=== PATIENT | female | born 1930 | race Caucasian/White ===

== ENCOUNTER 2016-02-18 11:33 | Emergency (ER) | payer MEDICARE, BC ==
[~2016-02-18] VITALS: Ht 152.4 cm; Wt 45.4 kg
[~2016-02-18 11:33] MED LIST: ACETAMINOP160 MG/54 ORAL; AMLODIPINE BESYL5 MG PO; ARTIFICIAL TEA1 EAC2 OP; ARTIFICIAL TEAR15 ML BOTH EYES; ASPIRIN EC81 MG PO; CALCIUM + VIT1 EACH PO; CALMOSEPTINE O3.5 G1 TP; CEPHALEXIN500 MG ORAL; CIPRO250 MG ORAL; CITRACAL PO; COLACE250 MG ORAL; COUMADIN5 MG ORAL; COUMADIN6 MG ORAL; COUMADIN7.5 MG ORAL; CRANBERRY200 M1 PO; CULTURELLE1 EACH ORAL; DOCUSIL100 M1 ORAL; DOK100 M1 ORAL; DOXYCYCLINE HY100 M2 PO; ESSENTIAL DAIL1 EAC1 PO; FERROUS SULFAT325 M2 ORAL; GUAIFENESI100 MG/5 M ORAL; Ipratropium Bromide HHN; LIDODERM700 M1 TOPIC; LIPITOR20 MG ORAL; LOVENOX10 M1 SUBQ; LOVENOX10 M4 SUBQ; METOPROLOL SUCC25 MG ORAL; MIRALAX17 GM PO; MIRTAZAPINE15 M3 ORAL; MIRTAZAPINE30 MG ORAL; NAPROXEN250 MG PO; NORCO 5-325 TA1 EACH ORAL; NORCO 7.5/3251 EA ORAL; NORVASC5 MG ORAL; NYSTOP POWDER15 GM TOPIC; PANTOPRAZOLE SO40 MG ORAL; PEPTO-BISM525 MG/15 PO; PEPTO-BISMOL262 MG PO; REMERON30 M1 ORAL; ROPINIROLE HCL1 MG PO; ROPINIROLE HCL2 M1 PO; SIMVASTATIN20 MG ORAL; SINEMET 25-1001 EAC1 PO; SINEMET 25/2501 E1 ORAL; SYNTHROID112 MCG ORAL; TYLENOL325 MG ORAL; VIACTIV MULTI-1 EACH PO; VIACTIV SOFT C1 EACH PO; VITAMIN C500 M1 PO; VITAMIN D1000 UNI1 ORAL; VYTORIN 10-201 EACH ORAL; WARFARIN SODIUM1 MG ORAL; WARFARIN SODIUM5 MG ORAL; XOPENEX0.5 MG HHN; ZETIA10 MG ORAL; ZINC SULFATE220 M1 ORAL; [UNRECOGNIZED DRUG - OTHER] PO; [UNRECOGNIZED DRUG - OTHER] PO; vit c PO
[2016-02-18 12:30] VITALS: BP 169/86
[2016-02-18 13:09] LABS: BASOPHILS % (AUTO) 0.7 % (0.0-2.0); LYMPHOCYTES % (AUTO) 10.2 % (20.0-45.0); MEAN CORPUSCULAR HEMOGLOBIN 28.8 PG (27.0-31.0); MEAN CORPUSCULAR HGB CONC 31.7 G/DL (32.0-36.0); MEAN CORPUSCULAR VOLUME 91 FL (80-99); MEAN PLATELET VOLUME 10.5 FL (6.5-10.1); MONOCYTES % (AUTO) 5.7 % (1.0-10.0); NEUTROPHILS % (AUTO) 82.4 % (45.0-75.0); PLATELET COUNT 191 K/UL (150-450); RED BLOOD COUNT 4.66 M/UL (4.20-5.40); RED CELL DISTRIBUTION WIDTH 13.4 % (11.6-14.8); WHITE BLOOD COUNT 9.5 K/UL (4.8-10.8)
[2016-02-18 13:28] LABS: ALANINE AMINOTRANSFERASE 5 U/L (3-33); ALBUMIN/GLOBULIN RATIO 1.2 (1.0-2.7); ANION GAP 13 (5-15); ASPARTATE AMINO TRANSFERASE 22 U/L (5-40); CARBON DIOXIDE 26 mEQ/L (20-30); CHLORIDE 101 mEQ/L (98-107); CREATININE 0.8 mg/dL (0.5-0.9); HEMOLYSIS 10; POTASSIUM 4.1 mEQ/L (3.4-4.9); SODIUM 140 mEQ/L (135-145); TOTAL PROTEIN 6.9 g/dL (6.6-8.7)
[2016-02-18 13:31] LABS: INR 2.3 (0.9-1.1); PROTHROMBIN TIME 24.2 SEC (9.30-11.50)
--- NOTE | 2016-02-18 13:40 | Diagnostic Imaging Report ---
Indication: Back pain Technique: Continuous helical transaxial imaging of the lumbar spine was obtained from the lung bases to the pubic symphysis. No IV contrast was administered. Coronal 2-D reformats were also obtained. Study obtained in a Siemens sensation [address] Total Dose length Product (DLP): [address] Dose Index Volume (CTDIvol): 13 mGy Comparison: None Findings: There are multiple compression fracture deformities of vertebral bodies throughout the lumbar and visualized lower thoracic spine including moderate compression of the L3 vertebra, moderate to severe compression of the T12 and T9 vertebra. Bones are diffusely osteopenic. No obvious acute fracture is seen. The last study imaging the lumbar spine was performed 06/29/[address] abdomen pelvis. There is no obvious change since that time but the prior study was not performed with sagittal reconstructions which does significantly limit comparison. Subtle changes since that time may be missed. There is a scoliosis convex to the right again demonstrated. Aorta is moderately calcified. Impression: Multiple osteoporotic compression fractures within the lumbar and visualized lower thoracic spine grossly unchanged from the previous study 06/29/13 with some limitations in the comparison as discussed above. Atherosclerotic vascular disease The CT scanner at [facility] is accredited by the [employer] and the scans are performed using protocols designed to limit radiation exposure to as low as reasonably achievable to attain images of sufficient resolution adequate for diagnostic evaluation.
[2016-02-18 13:59] LABS: THYROID STIMULATING HORMONE 0.005 uIU/mL (0.300-4.500)
--- NOTE | 2016-02-18 14:12 | Diagnostic Imaging Report ---
Indications: hip pain Findings: 2 views of both hips were obtained. There is a bipolar right hip hemiarthroplasty demonstrated. Cerclage wires and a large lateral compression plate along the shaft of the femur noted also. Bones are osteopenic. No fracture is identified. Partial visualization of a left hip bipolar hemiarthroplasty also noted. IVC filter noted just right of L5. Impression: No acute fracture identified. Bilateral hip prosthetics. Diffuse severe osteopenia.
[2016-02-18 14:15] VITALS: BP 169/87
[2016-02-18] MEDS ORDERED: TYLENOL EXTRA500 MG ORAL (14:21)
[2016-02-18 14:35] VITALS: BP 169/87
--- NOTE | 2016-02-18 14:55 | Diagnostic Imaging Report ---
Indication: Pain 3 views of the right knee were obtained. Findings: There is a lateral femoral compression plate and several screws reducing a mid shaft fracture, which appears old. No acute fracture is identified. Bones are osteopenic. There is moderate osteoarthritis of the knee noted. Impression: No acute fracture
--- NOTE | 2016-02-19 15:45 | Emergency Room Report ---
History of Present Illness General Chief Complaint: Pain Source: Family Member, Medical Record Present Illness HPI 86-year-old female presents to ED for evaluation. Patient brought in by daughter. Daughter states that patient has been complaining of pain while she is being handled by her nurses at her [id number]. No reported trauma. Daughter states that she wants to make sure that patient does not have a fracture. Patient sent here from PMD Dr. Diallo's office. Patient has dementia and is unable to provide any additional history. Unclear whether patient fell or was dropped. Patient is pointing to her right shoulder, right knee and back for pain. Daughter states that patient did have hip replacements in both sides. No other aggravating or relieving factors. Denies any other associated symptoms Allergies: Coded Allergies: STRAWBERRY (Verified Allergy, Unknown, Rash, 06/29/13) COPIED FROM UNCODED SECTION VALSARTAN (Verified Allergy, Unknown, 03/09/11) Patient History Past Medical History: HTN, CAD, dementia Pertinent Family History: none Social History: Denies: alcohol use, drug use, smoking Now: No Immunizations: UTD Reviewed Nursing Documentation: PMH: Agreed, PSxH: Agreed Nursing Documentation-PMH Hx Cardiac Problems: Yes - high cholesterol; arteriosclerosis Hx Hypertension: Yes - ? - no longer on medications Hx Cancer: No Hx Gastrointestinal Problems: Yes - RECTAL PROLAPSE ( corrected april 2012) Hx Neurological Problems: Yes - DEMENTIA; "Parikinson-like symptoms" Hx Dementia: Yes Hx Parkinson's Disease: Yes Hx Memory Loss: Yes Hx Weakness: Yes Review of Systems All Other Systems: negative except mentioned in HPI Physical Exam Vital Signs Date Time Temp Pulse Resp B/P Pulse Ox O2 Delivery O2 Flow Rate FiO2 02/18/16 11:35 97.2 72 16 184/86 95 Room Air Sp02 EP Interpretation: reviewed, normal General Appearance: no apparent distress, alert, GCS 15, non-toxic, thin Head: normocephalic Eyes: bilateral eye PERRL, bilateral eye normal inspection ENT: normal ENT inspection Neck: normal inspection Respiratory: chest non-tender, lungs clear, normal breath sounds, speaking full sentences Cardiovascular #1: regular rate, rhythm, no edema Gastrointestinal: normal bowel sounds, non tender, soft, non-distended, no guarding, no rebound Rectal: deferred Genitourinary: no CVA tenderness, vertebral tenderness Musculoskeletal: tender - R shoulder, R knee. L hip Neurologic: alert, responsive, motor strength/tone normal, sensory intact, speech normal Psychiatric: other Skin: normal inspection Lymphatic: normal inspection Medical Decision Making Diagnostic Impression: Primary Impression: Arthralgia Qualified Codes: M25.50 - Pain in unspecified joint ER Course Hospital Course 86-year-old female presents to ED with right shoulder, right knee, back and hip pain. From boarding care facility. Unclear if patient sustained injury Differential diagnosis includes- x-ray, dislocation, contusion Clinical course Patient placed on stretcher. After initial history and physical I ordered labs , IV fluids, pain medications and imaging studies Labs - no leukocytosis, electrolytes ok, hb/hct stable, LFTs normal X-rays show degenerative changes however no acute fracture. Her prostheses in place CT L-spine shows multiple compression fractures which are unchanged from prior CT and 2014 Reassurance given to family. Discussed with PMD Dr. Diallo he agrees patient can be safely discharged to home I feel this is a highly complex case requiring extensive working including EKG/ Rhythm strip, Xray/CT/US, Blood/urine lab work, repeat exams while in ED, and administration of strong opiates/narcotics for pain control, admission to hospital or close patient follow up. Diagnosis - arthralgia Stable and discharged to home with Rx Tylenol. Followup with PMD. Return to ED if symptoms recur or worsen Labs Test 02/18/16 12:15 White Blood Count 9.5 K/UL (4.8-10.8) Red Blood Count 4.66 M/UL (4.20-5.40) Hemoglobin 13.4 G/DL (12.0-16.0) Hematocrit 42.4 % (37.0-47.0) Mean Corpuscular Volume 91 FL (80-99) Mean Corpuscular Hemoglobin 28.8 PG (27.0-31.0) Mean Corpuscular Hemoglobin Concent 31.7 G/DL (32.0-36.0) Red Cell Distribution Width 13.4 % (11.6-14.8) Platelet Count 191 K/UL (150-450) Mean Platelet Volume 10.5 FL (6.5-10.1) Neutrophils (%) (Auto) 82.4 % (45.0-75.0) Lymphocytes (%) (Auto) 10.2 % (20.0-45.0) Monocytes (%) (Auto) 5.7 % (1.0-10.0) Eosinophils (%) (Auto) 1.0 % (0.0-3.0) Basophils (%) (Auto) 0.7 % (0.0-2.0) Prothrombin Time 24.2 SEC (9.30-11.50) Prothromb Time International Ratio 2.3 (0.9-1.1) Activated Partial Thromboplast Time 34 SEC (23-33) Sodium Level 140 mEQ/L (135-145) Potassium Level 4.1 mEQ/L (3.4-4.9) Chloride Level 101 mEQ/L (98-107) Carbon Dioxide Level 26 mEQ/L (20-30) Anion Gap 13 (5-15) Blood Urea Nitrogen 19 mg/dL (7-23) Creatinine 0.8 mg/dL (0.5-0.9) Estimat Glomerular Filtration Rate mL/min (>60) Glucose Level 87 mg/dL (74-106) Calcium Level 10.0 mg/dL (8.6-10.2) Total Bilirubin 0.3 mg/dL (0.0-1.2) Aspartate Amino Transf (AST/SGOT) 22 U/L (5-40) Alanine Aminotransferase (ALT/SGPT) 5 U/L (3-33) Alkaline Phosphatase 83 U/L (35-104) Total Protein 6.9 g/dL (6.6-8.7) Albumin 3.8 g/dL (3.5-5.2) Globulin 3.1 g/dL Albumin/Globulin Ratio 1.2 (1.0-2.7) Vitamin B12 Level 708 pg/mL (211-946) Thyroid Stimulating Hormone (TSH) 0.005 uIU/mL (0.300-4.500) Other X-Ray Diagnostic Results Other X-Ray Diagnostic Results : X-Ray Ordered: R shoudler, R knee, Pelvis EP Interpretation: No Findings: no fractures, no dislocation, no soft tissue swelling Number of Views: 3 Other Impression Right shoulder-No fracture, no dislocation, no soft tissue swelling Right knee-No fracture, no dislocation, no soft tissue swelling Pelvis-No fracture, no dislocation, no soft tissue swelling CT/MRI/US Diagnostic Results CT/MRI/US Diagnostic Results : Imaging Test Ordered: CT L-spine Impression Multiple old compression fractures unchanged from prior CT. No acute findings Last Vital Signs Date Time Temp Pulse Resp B/P Pulse Ox O2 Delivery O2 Flow Rate FiO2 02/18/16 14:35 96.9 02/18/16 14:35 73 13 169/87 99 Room Air Status: improved Disposition: HOME, SELF-CARE Condition: Stable Scripts Acetaminophen* (TYLENOL EXTRA STRENGTH*) 500 Mg Tablet 500 MG ORAL Q8H Y for Prn Headache/Temp > 101, #30 TAB 0 Refills Prov: CHARLEEN CHAHAL M.D. 02/18/16 Patient Instructions: Arthritis, [id number] CHARLEEN CHAHAL M.D. Feb 19, 2016 15:45
--- NOTE | 2016-02-21 08:29 | Diagnostic Imaging Report ---
Indication: Pain Findings: 3 views of the right shoulder were obtained. No definite fracture or malalignment identified. Bones are osteopenic. There is an old fracture of the distal clavicle. Impression: Generalized osteopenia. Old fracture right distal clavicle
== END 2016-02-18 14:35 | disposition home or self-care (01) ==
LOC: EMR 12:50
DX: M25.511 Pain in right shoulder (principal); M17.11 Unilateral primary osteoarthritis, right knee; M48.56XA Collapsed vertebra, not elsewhere classified, lumbar region, initial encounter for fracture; M48.54XA Collapsed vertebra, not elsewhere classified, thoracic region, initial encounter for fracture; G20 Parkinson's disease; F02.80 Dementia in other diseases classified elsewhere, unspecified severity, without behavioral disturbance, psychotic disturbance, mood disturbance, and anxiety; M85.88 Other specified disorders of bone density and structure, other site; Z96.643 Presence of artificial hip joint, bilateral
CPT/HCPCS: 36415; 72131; 73521; 80053; 82607; 84443; 85025; 85610; 85730; 99284

== ENCOUNTER → 2017-07-29 | Outpatient (CLI) | payer MEDICARE, BC ==
[~2017-07-29] MED LIST changes: +TYLENOL EXTRA500 MG ORAL
--- NOTE | 2017-07-29 14:41 | Diagnostic Imaging Report ---
Indication: Shortness of breath Technique: One view of the chest Comparison: 04/13/2015 Findings: Exam is limited due to scoliotic deformity. There is a large hiatal hernia again demonstrated. There are bilateral small pleural effusions. There is some atelectasis at both lung bases and also in the inferior right upper lobe. Small amount of fluid is seen within the minor fissure on the right. The heart size is difficult to assess. The aorta is tortuous. There multiple midthoracic compression fractures. Compression fractures of T8 and T9 are evident on a prior abdomen pelvis CT exam of 06/29/2013. More cephalad fractures of T6 and T7 are age-indeterminate as there is no prior comparison imaging. The bones are osteoporotic Impression: Limited exam, as described Bilateral small pleural effusions Right basilar and inferior upper lobe atelectatic changes. Left basilar atelectasis as well. Large hiatal hernia, also previously reported
== END | disposition home or self-care (01) ==
LOC: RAD 12:35
DX: R06.02 Shortness of breath (principal); J90 Pleural effusion, not elsewhere classified; K44.9 Diaphragmatic hernia without obstruction or gangrene; M81.0 Age-related osteoporosis without current pathological fracture
CPT/HCPCS: 71046

== ENCOUNTER 2018-01-30 23:37 | Inpatient (IN) | payer MEDICARE, BC ==
[~2018-01-30] VITALS: Ht 152.4 cm; Wt 45.4 kg
[2018-01-30] MEDS ORDERED: Nitroglycerin 2% oint pkt TOPIC ONE (23:45)
[2018-01-30] MEDS ORDERED: Morphine Sulfate 2mg/ml Inj IVP ONE (23:45)
[2018-01-30 23:50] VITALS: BP 224/113
[2018-01-31] VITALS (8 sets, daily range): BP systolic 115–180; BP diastolic 69–100
[2018-01-31] MEDS: Sodium Chloride 500ML 550 ML IV SCH ×3 (00:01→10:45)
[2018-01-31 00:18] LABS: ANION GAP 5 mmol/L (5-15); BLOOD UREA NITROGEN 31 mg/dL (7-18); CALCIUM 10.2 MG/DL (8.5-10.1); CARBON DIOXIDE 30 MMOL/L (21-32); CHLORIDE 102 MMOL/L (98-107); POTASSIUM 5.8 MMOL/L (3.5-5.1); SODIUM 137 MMOL/L (136-145)
[2018-01-31 00:19] LABS: BASOPHILS % (AUTO) 1.7 % (0.0-2.0); EOSINOPHILS % (AUTO) 2.4 % (0.0-3.0); HEMATOCRIT 43.7 % (37.0-47.0); HEMOGLOBIN 14.3 G/DL (12.0-16.0); LYMPHOCYTES % (AUTO) 21.3 % (20.0-45.0); MEAN CORPUSCULAR VOLUME 94 FL (80-99); NEUTROPHILS % (AUTO) 68.7 % (45.0-75.0); PLATELET COUNT 187 K/UL (150-450); RED BLOOD COUNT 4.65 M/UL (4.20-5.40); RED CELL DISTRIBUTION WIDTH 13.4 % (11.6-14.8); WHITE BLOOD COUNT 9.1 K/UL (4.8-10.8)
[2018-01-31 00:29] LABS: ALANINE AMINOTRANSFERASE 39 U/L (12-78); ALBUMIN 3.6 G/DL (3.4-5.0); ALBUMIN/GLOBULIN RATIO 0.8 (1.0-2.7); ALKALINE PHOSPHATASE 95 U/L (46-116); ASPARTATE AMINO TRANSFERASE 69 U/L (15-37); BILIRUBIN,TOTAL 0.4 MG/DL (0.2-1.0); CREATINE KINASE 126 U/L (26-308)
[2018-01-31 00:39] LABS: INR 3.3 (0.9-1.1)
[2018-01-31] MEDS ORDERED: Morphine Sulfate 2mg/ml Inj IVP ONE (01:15)
[2018-01-31] MEDS ORDERED: [UNRECOGNIZED DRUG - OTHER] ORAL (01:23)
[2018-01-31] MEDS ORDERED: Sodium Polystyrene Sulfonate Enema RECTAL ONE (01:30)
[2018-01-31] MEDS ORDERED: Isovue-370 150ml vial INJ PRN (01:30)
[2018-01-31] MEDS ORDERED: Calcium Gluconate 1gm/10ml vial IVP ONE (01:30)
--- NOTE | 2018-01-31 01:35 | Emergency Room Report ---
History of Present Illness General Chief Complaint: Chest Pain Source: Patient, Family Member Present Illness HPI Patient presents with chest pain and hypertension. The patient has a functional decline and therefore the poor historian. She was recently seen by a inverted block operator on January 23 and her heart EKG checked out okay. She is a poor in describing with the chest pain feels like but she states she doesn't feel well. She will not rate the pain (but appears uncomfortable). Scraped L leg at doctor's office. The patient is on Coumadin. DVT and PE in the past. Not sure when last INR was done (not recent). IVC filter. Unable to swallow well. On puree diet. Has had GERD in the past. 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 Recent pneumonitis felt related to aspiration. Multiple compression fractures of T spine and other fractures. Parkinsons with some dementia/functional decline. Allergies: Coded Allergies: STRAWBERRY (Verified Allergy, Unknown, Rash, 06/29/13) COPIED FROM UNCODED SECTION VALSARTAN (Verified Allergy, Unknown, 03/09/11) Patient History Limited by: medical condition Past Medical History: see triage record, old chart reviewed Past Surgical History: hysterectomy, other - esophagectomy with bowel interposition, IVC filter, femoral hernia Social History: Denies: smoking Social History Narrative Board and care facility - Mother in Law of Mr. Xavier Last Menstrual Period: UNK Now: No Reviewed Nursing Documentation: PMH: Agreed; PSxH: Agreed Nursing Documentation-PMH Hx Cardiac Problems: Yes - high cholesterol; arteriosclerosis Hx Hypertension: Yes - ? - no longer on medications Hx Cancer: No Hx Gastrointestinal Problems: Yes - RECTAL PROLAPSE ( corrected april 2012) Hx Neurological Problems: Yes - DEMENTIA; "Parikinson-like symptoms" Hx Dementia: Yes Hx Parkinson's Disease: Yes Hx Memory Loss: Yes Hx Weakness: Yes Review of Systems All Other Systems: limited Physical Exam Vital Signs Date Time Temp Pulse Resp B/P (MAP) Pulse Ox O2 Delivery O2 Flow Rate FiO2 01/30/18 23:37 97.0 78 14 224/113 100 Room Air 01/30/18 23:50 99 Sp02 EP Interpretation: reviewed, normal General Appearance: alert, mild distress, thin, other - frail, Chronically Ill Head: normocephalic Eyes: bilateral eye EOMI, bilateral eye other - cataracts ENT: moist mucus membranes Neck: supple Respiratory: lungs clear, normal breath sounds Cardiovascular #1: regular rate, rhythm, no edema Cardiovascular #2: 2+ radial (R) Gastrointestinal: normal inspection, normal bowel sounds, non tender, no mass, non-distended Genitourinary: no CVA tenderness Musculoskeletal: back normal, normal range of motion - with some rigidity, no calf tenderness, Javier's Sign negative Neurologic: alert, DTRs symmetric, sensory intact, motor weakness - diffuse, not focal, oriented Psychiatric: anxious - and appears in pain Skin: normal inspection, warm/dry, abrasions - L anterior tibia Medical Decision Making Diagnostic Impression: Primary Impression: Chest pain Qualified Codes: R07.9 - Chest pain, unspecified Additional Impressions: Hypertensive urgency Hyperkalemia ER Course Patient presents with HTN and chest pain. DDx: AMI, ACS, aneurism, GERD amongst others. Evaluation with EKG, CXR and labs. Treatment with one dose aspirin, nitro paste, morphine and zofran. Cardiac monitoring. Very complex patient as unable to describe nature of pain or answer questions regarding exacerbating/relieving factors. Will address HTN with hydralazine and nitrates. EKG with NSR, NSSTTW changes. CXR chronic changes with atelectasis and ectatic aorta. Labs with normal troponin. Potassium elevated. INR 3.3. Some hematuria, no pyuria. Still with pain. Repeat morphine. K treated with Kayexalate enema and calcium. Discussed with Dr. Diallo. Wants CT chest. Agrees with admission. If aneurism, would need to go to higher level of care. Delay of CT perform and reading. CT without aneurism. Pain controlled. BP controlled. Repeat troponin trending upwards. No heparin or other antiplatelet tx as anticoagulated. (As anticoagulated, doubt PE.) Admit SDU, Dr. Diallo. Laboratory Tests Test 01/30/18 23:54 01/31/18 05:41 White Blood Count 9.1 K/UL (4.8-10.8) Red Blood Count 4.65 M/UL (4.20-5.40) Hemoglobin 14.3 G/DL (12.0-16.0) Hematocrit 43.7 % (37.0-47.0) Mean Corpuscular Volume 94 FL (80-99) Mean Corpuscular Hemoglobin 30.6 PG (27.0-31.0) Mean Corpuscular Hemoglobin Concent 32.6 G/DL (32.0-36.0) Red Cell Distribution Width 13.4 % (11.6-14.8) Platelet Count 187 K/UL (150-450) Mean Platelet Volume 10.7 FL (6.5-10.1) H Neutrophils (%) (Auto) 68.7 % (45.0-75.0) Lymphocytes (%) (Auto) 21.3 % (20.0-45.0) Monocytes (%) (Auto) 6.0 % (1.0-10.0) Eosinophils (%) (Auto) 2.4 % (0.0-3.0) Basophils (%) (Auto) 1.7 % (0.0-2.0) Prothrombin Time 32.8 SEC (9.30-11.50) H Prothrombin Time INR 3.3 (0.9-1.1) H PTT 36 SEC (23-33) H Sodium Level 137 MMOL/L (136-145) Potassium Level 5.8 MMOL/L (3.5-5.1) H Chloride Level 102 MMOL/L (98-107) Carbon Dioxide Level 30 MMOL/L (21-32) Anion Gap 5 mmol/L (5-15) Blood Urea Nitrogen 31 mg/dL (7-18) H Creatinine 1.0 MG/DL (0.55-1.30) Estimate Glomerular Filtration Rate mL/min (>60) Glucose Level 92 MG/DL (74-106) Calcium Level 10.2 MG/DL (8.5-10.1) H Total Bilirubin 0.4 MG/DL (0.2-1.0) Aspartate Amino Transferase (AST) 69 U/L (15-37) H Alanine Aminotransferase (ALT) 39 U/L (12-78) Alkaline Phosphatase 95 U/L (46-116) Total Creatine Kinase 126 U/L (26-308) Troponin I 0.019 ng/mL (0.000-0.056) 0.052 ng/mL (0.000-0.056) Pro-B-Type Natriuretic Peptide 1995 pg/mL (0-125) H Total Protein 8.3 G/DL (6.4-8.2) H Albumin 3.6 G/DL (3.4-5.0) Globulin 4.7 g/dL Albumin/Globulin Ratio 0.8 (1.0-2.7) L EKG Diagnostic Results Rate: normal Rhythm: NSR ST Segments: no acute changes Rhythm Strip Diag. Results EP Interpretation: yes Rhythm: NSR, no PVC's, no ectopy Chest X-Ray Diagnostic Results Chest X-Ray Diagnostic Results : Chest X-Ray Ordered: Yes # of Views/Limited/Complete: 1 View Indication: Chest Pain EP Interpretation: Yes Interpretation: no pneumothorax, other - atelectasis, effusions - no change from prior films Impression: Other Electronically Signed by: Electronically signed by Nomi Mc MD CT/MRI/US Diagnostic Results CT/MRI/US Diagnostic Results : Imaging Test Ordered: CT contrast chest abd Impression 1. The ascending thoracic aorta measures up to 3.5 cm in diameter. No evidence of dissection or aneurysm. 2. Chronic compression fractures of T6, T7, T8, T9 and T12. There is a resulting kyphosis deformity of the mid thoracic spine. 3. There is evidence of previous esophagectomy with bowel interposition. Last Vital Signs Date Time Temp Pulse Resp B/P (MAP) Pulse Ox O2 Delivery O2 Flow Rate FiO2 01/31/18 06:30 97.0 71 15 117/88 100 Room Air 99 Status: improved Disposition: ADMITTED INPATIENT Condition: Serious Referrals: Herminio Diallo MD (PCP) Nomi Mc MD Jan 31, 2018 01:35
--- NOTE | 2018-01-31 02:05 | Diagnostic Imaging Report ---
EXAM: XR Chest, 1 View CLINICAL HISTORY: CP TECHNIQUE: Frontal view of the chest. COMPARISON: Chest x-ray dated 07/27/2017 FINDINGS: Lungs: Bibasilar atelectasis. Pleural space: Probable small right-sided pleural effusion. No pneumothorax. Mediastinum: Prominence of the mediastinum. Bones/joints: Degenerative changes of the osseous structures. Remote compression deformities of the mid thoracic spine, which are better seen on prior study. Vasculature: Marked tortuosity of the thoracic aorta. IMPRESSION: Probable small right-sided pleural effusion.
[2018-01-31] MEDS ORDERED: Isovue-300 100ml vial INJ PRN (02:45)
--- NOTE | 2018-01-31 05:11 | Diagnostic Imaging Report ---
EXAM: CT Chest With Intravenous Contrast CLINICAL HISTORY: AA TECHNIQUE: Axial computed tomography images of the chest with intravenous contrast. CTDI is 10.5 mGy and DLP is 362.9 mGy-cm. One or more of the following dose reduction techniques were used: automated exposure control, adjustment of the mA and/or kV according to patient size, use of iterative reconstruction technique. Coronal and sagittal reformatted images were created and reviewed. COMPARISON: CXR 11/28/17 FINDINGS: Lungs: Lung demonstrate bibasilar atelectasis. Pleural space: Unremarkable. No pneumothorax. No significant effusion. Heart: Unremarkable. No cardiomegaly. No significant pericardial effusion. Mediastinum: There is evidence of previous esophagectomy with bowel interposition. Bones/joints: Chronic compression fractures of T6, T7, T8, T9 and T12. There is a resulting kyphosis deformity of the mid thoracic spine. Extensive old bilateral rib fractures. Chronic deformities of the sternum. No dislocation. Soft tissues: Unremarkable. Vasculature: The ascending thoracic aorta measures up to 3.5 cm in diameter. No evidence of dissection or aneurysm. Lymph nodes: Unremarkable. No enlarged lymph nodes. IMPRESSION: 1. The ascending thoracic aorta measures up to 3.5 cm in diameter. No evidence of dissection or aneurysm. 2. Chronic compression fractures of T6, T7, T8, T9 and T12. There is a resulting kyphosis deformity of the mid thoracic spine. 3. There is evidence of previous esophagectomy with bowel interposition. EXAM: CT Abdomen and Pelvis With Intravenous Contrast CLINICAL HISTORY: AA TECHNIQUE: Axial computed tomography images of the abdomen and pelvis with intravenous contrast. CTDI is 11.5 mGy and DLP is 455.3 mGy-cm. One or more of the following dose reduction techniques were used: automated exposure control, adjustment of the mA and/or kV according to patient size, use of iterative reconstruction technique. Coronal and sagittal reformatted images were created and reviewed. COMPARISON: CT L spine 02/18/16, CT abdomen pelvis dated 06/29/13 FINDINGS: Lung bases: Unremarkable. No mass. No consolidation. ABDOMEN: Liver: Unremarkable. No mass. Gallbladder and bile ducts: Unremarkable. No calcified stones. No ductal dilation. Pancreas: Unremarkable. No mass. No ductal dilation. Spleen: Unremarkable. No splenomegaly. Adrenals: Unremarkable. No mass. Kidneys and ureters: Right intrarenal calculi measuring up to 7.4 mm. Left renal hypodense lesions measuring up to 6.7 mm, possible cysts. Cortically based 7.9 mm calcification seen on the left. Left intrarenal 2.5 mm calculus. No hydronephrosis. Stomach and bowel: Colonic diverticulosis. Moderate size fecal load within the colon. No obstruction. No mucosal thickening. PELVIS: Appendix: No findings to suggest acute appendicitis. Bladder: Unremarkable. No mass. Reproductive: Unremarkable as visualized. ABDOMEN and PELVIS: Intraperitoneal space: Unremarkable. No free air. No significant fluid collection. Bones/joints: Bilateral hip arthroplasties. The hardware artifact limits evaluation of the pelvis. Compression fractures are seen of T9, T11, T12, L1 and L3. The L1 fracture may possibly be subacute as the fracture line still visible. Degenerative changes of the spine with scoliosis. Diffuse osteopenia. Vacuum phenomenon seen at L4/L5. No dislocation. Soft tissues: Unremarkable. Vasculature: Extensive atherosclerosis. No evidence of abdominal aortic aneurysm or dissection. Extensive atherosclerosis is seen involving the celiac and superior mesenteric artery. A degree of stenosis is seen within the superior mesenteric artery not fully evaluated. The left internal iliac artery also appears stenotic. IVC filter. Lymph nodes: Unremarkable. No enlarged lymph nodes. IMPRESSION: 1. Extensive atherosclerosis. No evidence of abdominal aortic aneurysm or dissection. Extensive atherosclerosis is seen involving the celiac and superior mesenteric artery. A degree of stenosis is seen within the superior mesenteric artery not fully evaluated. The left internal iliac artery also appears stenotic. 2. Colonic diverticulosis. 3. Bilateral hip arthroplasties. The hardware artifact limits evaluation of the pelvis. 4. Moderate size fecal load within the colon. 5. Compression fractures are seen of T9, T11, T12, L1 and L3. The L1 fracture may possibly be subacute as the fracture line still visible.
[2018-01-31 07:27] LABS: APPEARANCE,URINE SLIGHTLY CLOUDY; BILIRUBIN, URINE NEGATIVE (NEGATIVE); COLOR,URINE PALE YELLOW; GLUCOSE, URINE (UA) NEGATIVE (NEGATIVE); KETONES,URINE NEGATIVE (NEGATIVE); LEUKOCYTE ESTERASE ,URINE 1+ (NEGATIVE); NITRITE,URINE NEGATIVE (NEGATIVE); PH,URINE 7 (4.5-8.0); PROTEIN,URINE 2+ (NEGATIVE); UROBILINOGEN,URINE NORMAL MG/DL (0.0-1.0)
[2018-01-31] MEDS ORDERED: Ascorbic Acid 500mg tab ORAL SCH (09:45)
[2018-01-31] MEDS ORDERED: Albuterol/Ipratropium 3ml neb HHN PRN (09:45)
[2018-01-31] MEDS ORDERED: ROPINIROLE HCL1 MG PO (10:19)
[2018-01-31] MEDS ORDERED: SINEMET 25-2501 EACH ORAL (10:19)
--- NOTE | 2018-01-31 11:21 | Cardiology Progress Note ---
Assessment/Plan Assessment/Plan [id number] Objective Last 24 Hour Vital Signs Date Time Temp Pulse Resp B/P (MAP) Pulse Ox O2 Delivery O2 Flow Rate FiO2 01/31/18 06:30 97.0 71 15 117/88 100 Room Air 99 01/31/18 06:30 97.0 71 15 117/88 100 Room Air 99 01/31/18 06:00 97.0 69 15 118/90 100 Room Air 99 01/31/18 05:34 97.0 71 15 133/95 100 Room Air 99 01/31/18 03:34 97.0 78 15 155/98 100 Room Air 99 01/31/18 01:56 96.9 01/31/18 01:30 97.0 76 15 180/100 100 Room Air 99 01/31/18 00:36 214/158 01/31/18 00:30 96.9 01/30/18 23:59 224/114 01/30/18 23:50 78 14 Room Air 99 01/30/18 23:50 97.0 77 14 224/113 100 Room Air 99 01/30/18 23:37 97.0 78 14 224/113 100 Room Air Intake and Output 01/30/18 01/31/18 19:00 07:00 Intake Total 0 ml Balance 0 ml Intake Oral 0 ml Laboratory Tests Test 01/30/18 23:54 01/31/18 05:41 01/31/18 06:20 White Blood Count 9.1 K/UL (4.8-10.8) Red Blood Count 4.65 M/UL (4.20-5.40) Hemoglobin 14.3 G/DL (12.0-16.0) Hematocrit 43.7 % (37.0-47.0) Mean Corpuscular Volume 94 FL (80-99) Mean Corpuscular Hemoglobin 30.6 PG (27.0-31.0) Mean Corpuscular Hemoglobin Concent 32.6 G/DL (32.0-36.0) Red Cell Distribution Width 13.4 % (11.6-14.8) Platelet Count 187 K/UL (150-450) Mean Platelet Volume 10.7 FL (6.5-10.1) H Neutrophils (%) (Auto) 68.7 % (45.0-75.0) Lymphocytes (%) (Auto) 21.3 % (20.0-45.0) Monocytes (%) (Auto) 6.0 % (1.0-10.0) Eosinophils (%) (Auto) 2.4 % (0.0-3.0) Basophils (%) (Auto) 1.7 % (0.0-2.0) Prothrombin Time 32.8 SEC (9.30-11.50) H Prothromb Time International Ratio 3.3 (0.9-1.1) H Activated Partial Thromboplast Time 36 SEC (23-33) H Sodium Level 137 MMOL/L (136-145) Potassium Level 5.8 MMOL/L (3.5-5.1) H Chloride Level 102 MMOL/L (98-107) Carbon Dioxide Level 30 MMOL/L (21-32) Anion Gap 5 mmol/L (5-15) Blood Urea Nitrogen 31 mg/dL (7-18) H Creatinine 1.0 MG/DL (0.55-1.30) Estimat Glomerular Filtration Rate mL/min (>60) Glucose Level 92 MG/DL (74-106) Calcium Level 10.2 MG/DL (8.5-10.1) H Total Bilirubin 0.4 MG/DL (0.2-1.0) Aspartate Amino Transf (AST/SGOT) 69 U/L (15-37) H Alanine Aminotransferase (ALT/SGPT) 39 U/L (12-78) Alkaline Phosphatase 95 U/L (46-116) Total Creatine Kinase 126 U/L (26-308) Troponin I 0.019 ng/mL (0.000-0.056) 0.052 ng/mL (0.000-0.056) Pro-B-Type Natriuretic Peptide 1995 pg/mL (0-125) H Total Protein 8.3 G/DL (6.4-8.2) H Albumin 3.6 G/DL (3.4-5.0) Globulin 4.7 g/dL Albumin/Globulin Ratio 0.8 (1.0-2.7) L Urine Color Pale yellow Urine Appearance Slightly cloudy Urine pH 7 (4.5-8.0) Urine Specific [place] 1.005 (1.005-1.035) Urine Protein 2+ (NEGATIVE) H Urine Glucose (UA) Negative (NEGATIVE) Urine Ketones Negative (NEGATIVE) Urine Blood 5+ (NEGATIVE) H Urine Nitrite Negative (NEGATIVE) Urine Bilirubin Negative (NEGATIVE) Urine Urobilinogen Normal MG/DL (0.0-1.0) Urine Leukocyte Esterase 1+ (NEGATIVE) H Urine RBC 30-40 /HPF (0 - 2) H Urine WBC 2-4 /HPF (0 - 2) Urine Squamous Epithelial Cells Few /LPF (NONE/OCC) Urine Bacteria Few /HPF (NONE) Microbiology Date/Time Source Procedure Growth Status 01/31/18 00:43 Rectum Received Herminio Diallo MD Jan 31, 2018 11:21
[2018-01-31] MEDS ORDERED: Artificial Tears 1.4% Op Soln BOTH EYES SCH (11:30)
[2018-01-31] MEDS ORDERED: Artificial Tears 1.4% Op Soln BOTH EYES PRN (12:00)
--- NOTE | 2018-01-31 12:20 | Cardiology Report ---
APPROVED REPORT EKG Measurement Heart [id number] Normal sinus rhythm Septal infarct, age undetermined Abnormal ECG
[2018-01-31] MEDS ORDERED: Levodopa/Carbidopa 25/250 tab ORAL SCH ×2 (14:00→21:00)
[2018-01-31] MEDS ORDERED: Docusate 100mg cap ORAL SCH (18:00)
[2018-01-31] MEDS ORDERED: Tums 500mg ORAL SCH (18:00)
--- NOTE | 2018-01-31 20:00 | History and Physical Report ---
DATE OF ADMISSION: 01/31/2018 REASON FOR ADMISSION: Chest pain. HISTORY OF PRESENT ILLNESS: This is an elderly female, who is known to me from prior evaluation and hospitalization. The patient is a [facility]. Her daughter was notified last night that the patient has had significant elevated blood pressure as well as chest pain. Apparently, she was uncomfortable. She was brought to the emergency room at [facility]. Blood pressure was noted to be high. The patient was given some medication, eventually some morphine for pain relief. I did discuss with Dr. Mc about her pain and her situation. Because of persistent elevation of blood pressure and chest pain, I felt that probably aortic dissection needs to be excluded in this elderly patient and a CT scan was performed and that was excluded. The patient was subsequently admitted to the hospital, but her pain seems to have resolved this morning. She really does not recall having pain. Her daughter is the one who is providing most of the information. She was not coughing last night, but according to her daughter, she was uncomfortable and felt like she was going to . There has been no coughing and no wheezing noted by the patient's daughter yesterday. PAST MEDICAL HISTORY: Extensive and includes previous histories of intertrochanteric fracture of the hip on the left side, status post ORIF, postoperative bleeding, history of delirium perioperatively, cognitive impairment, obsessive-compulsive personality disorder history, history of abdominal wall and left inguinal hernia, history of right hemiparesis and paraparesis, Parkinson syndrome, multifactorial gait instabilities, history of deep venous thrombosis, history of pulmonary embolism, atherosclerotic heart disease of unknown detail, diastolic dysfunction on echocardiogram, hypertension, hyperlipidemia, rectal prolapse repair with associated prior to delirium, hypothyroidism, and osteoporosis. Most recently, she has been hospitalized for bronchospasm for possibility of aspiration pneumonitis and was treated with steroids and her dose of her Sinemet was increased although at the convalescent facility, she has been getting the same at previous doses. Feeding tubes were not felt to be an option previously. ALLERGIES: She is allergic to Diovan. SOCIAL HISTORY: [facility] She does not smoke. Does not drink alcoholic beverages at this time. REVIEW OF SYSTEMS: GASTROINTESTINAL: There has been no reports of nausea, vomiting, or diarrhea. No black or bloody stool. GENITOURINARY: Negative. PULMONARY: She has had occasional coughing and wheezing . CONSTITUTIONAL: Negative. PHYSICAL EXAMINATION: GENERAL: Shows to be an elderly female, in no respiratory distress. She is lying down comfortably with 20 degrees of head-of-bed elevation in right lateral decubitus position, unchanged in recumbent position, she looked fine. LUNGS: Appear to be clear to auscultation and percussion. CARDIAC: Regular rate and rhythm. No heaves, thrills, or gallops noted. ABDOMEN: Soft and nontender. Positive bowel sounds. EXTREMITIES: There is no clubbing or cyanosis nor is there any edema. NEUROLOGICAL: She is responsive and communicative, but not oriented. LABORATORY AND DIAGNOSTIC DATA: Her white count is 9, hemoglobin 14.3, and platelet count of 187,000. Sodium is 137, potassium , chloride 102, bicarbonate 30, BUN of 31, creatinine 1.0, glucose of 92, calcium level of 10.2. Liver function tests were relatively normal. Her proBNP was 1995. Troponin 0.019 and 0.052, both of those within normal limits. TSH previously low at 0.005. Her INR was 3.3, PTT of 36 at the time of admission through the emergency room and urinalysis showed 30-40 rbc's, 2-4 wbc's. A chest x-ray was performed in the emergency room and official x-ray interpretation, small right-sided pleural effusion, however, CT scan was performed, which showed bilateral atelectasis, unremarkable pleural spaces, no effusion, no cardiomegaly was noted, chronic compression fractures and rib fractures are being old, ascending aorta was up to 3.5 cm, no evidence of dissection or aneurysm. CT scan of the abdomen that was also performed that showed extensive atherosclerosis, no evidence of abdominal aortic aneurysm or dissection, superior mesenteric artery may have had some stenosis that was not fully evaluated, diverticulosis was noted, bilateral hip arthroplasties were noted, moderate-sized fecal load in the colon was noted as well. The patient's electrocardiogram, normal sinus rhythm on both EKGs that are available in the chart. No ST or T-wave abnormalities whatsoever on the EKGs. ASSESSMENT AND PLAN: 1. Chest pain. 2. Hypertension. 3. Hyperlipidemia. 4. History of recent possible aspiration pneumonitis. 5. Parkinson's. 6. Osteoporosis. 7. History of DVT and PE, history of IVC filter. 8. Diastolic dysfunction. This patient was seen in . Electrocardiogram is pending. On workup, two sets of cardiac enzymes are normal so far. Repeat levels are pending at this time. The CT scan does not show any evidence of dissection. We will monitor her renal function post-contrast, IV fluids, and for blood pressure, antihypertensive will be added on a p.r.n. basis. She really does not have significantly elevated blood pressure except for intermittent basis that is why she does get. By the time of her presentation at least in the emergency room, she had blood pressures in excess of 220/113 and that was the concern about possibility of dissection with that high level blood pressure was raised and has been addressed. If cardiac enzymes are abnormal, we will discuss with the patient's family whether they wish to pursue ischemia evaluation, however, she is so debilitated and my preference would be probably not be very aggressive in terms of her care and hopefully those cardiac enzymes will remain in the normal range. An echocardiogram will be ordered for evaluation of LV function and in the meantime, we will start the patient on proton pump inhibitors and I will check with the patient's son-in-law, Mr. Xavier, to see if he agrees to have GI doctor on board as well. Amylase and lipase will be checked. Of note, the patient apparently ate very well this morning after the episode of workup was completed. Herminio Diallo M.D. DR: Saeid JOB#: [id number] CC:
[2018-01-31] MEDS ORDERED: Atorvastatin 20mg tab ORAL SCH (21:00)
--- NOTE | 2018-02-02 10:39 | Discharge Summary ---
Discharge Summary Discharge Summary _ DATE OF ADMISSION: 01/31/2018 DATE OF DISCHARGE: 01/31/2018 DISCHARGED BY: Dr. Diallo REASON FOR ADMISSION: 88 years old female , resident of [facility], with extensive past medical history , including history of DVT, pulmonary embolism, s/p IVC filter , atherosclerotic heart disease of unknown detail, diastolic dysfunction on echocardiogram, hypertension, hyperlipidemia, Parkinson syndrome, right hemiparesis and paraparesis, multifactorial gait instability,hypothyroidism, osteoporosis, was recently hospitalized for bronchospasm for possible aspiration pneumonitis and treated with steroids, presented with chest pain and elevated blood pressure. Upon evaluation in emergency department blood pressure was significantly elevated -224/113. Troponin was negative. EKG revealed normal sinus rhythm , no acute ischemic changes. Chest x-ray revealed chronic changes with atelectasis and ectatic aorta. Potassium elevated-5.8. Urinalysis showed hematuria, but no pyuria. INR 3.3. Patient on Coumadin ar home. Hyperkalemia was treated with Kayexalate enema and calcium. Chest x-ray revealed small right-sided pleural effusion. Due to concern of possible aortic dissection in the setting of hypertensive urgency, patient undergone CT of the chest , which revealed no evidence of dissection or aneurysm. Chronic compression fracture of T6 -T7-T8-T9 and T12 noted. 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 CT of the abdomen and pelvis revealed extensive atherosclerosis. Colonic diverticulosis. Bilateral hip arthroplasty. Moderate fecal load within the colon. Compression fracture T9 T11 T12-L1 and L3. Patient admitted with diagnoses of chest pain ,hypertensive urgency , hyperkalemia. HOSPITAL COURSE: Patient was admitted to telemetry floor. Patient started on gentle after IV contrast and monitoring of renal function. Echocardiogram revealed preserved ejection fraction 55-60%. No evidence of wall motion abnormality. Moderate left ventricular hypertrophy. Mild aortic insufficiency. Right ventricular systolic pressure of 43 consistent with moderate pulmonary hypertension. ECG and telemetry revealed no acute ischemic changes . Nitroglycerin was on board as needed. Pain management was addressed as needed. Venous duplex bilateral lower extremity revealed no evidence of acute DVT. Blood pressure was managed with calcium channel michael and stabilized. Coumadin was on hold due to elevated INR. Prior to discharge blood pressure 115/69. Pulse oximetry was stable on room air. Further discussion was held with the family regarding pursuing ischemia evaluation with recommendation for conservative medical management, given multiple comorbidities and debilitating status. GI prophylaxis provided. Home medication resumed. Bowel regimen instituted. Statin and Zetia continued. Sinemet and Requip continued. Supportive care provided. Patient stabilized ,no further chest pain,stable blood pressure. Family requested transfer back to [facility]. Patient was stable for discharge , continue with conservative medical management Due to rapid and unexpected improvement in patient condition, patient was discharged in 1 day. FINAL DIAGNOSES: Chest pain ,likely secondary to hypertensive urgency Hypertensive urgency - resolved Hyperlipidemia History of recent possible aspiration pneumonitis. Parkinson's disease History of DVT and PE , status post IVC filter Diastolic dysfunction Osteoporosis DISCHARGE MEDICATIONS: See Medication Reconciliation list. DISCHARGE INSTRUCTIONS: Patient was discharged to assisted living. Follow-up with a primary care provider in 1 week. I have been assigned to dictate discharge summary for this account. I was not involved in the patient's management. Majo Padilla NP Feb 02, 2018 10:39
--- NOTE | 2018-02-02 13:25 | Cardiology Report ---
APPROVED REPORT EXAM: Two-dimensional and M-mode echocardiogram with Doppler and color Doppler. INDICATION Chest Pain M-Mode DIMENSIONS IVSd1.5 (0.7-1.1cm)Left Atrium (MM)2.7 (1.6-4.0cm) LVDd4.7 (3.5-5.6cm)Aortic Root4.0 (2.0-3.7cm) PWd1.3 (0.7-1.1cm)Aortic Cusp Exc.1.6 (1.5-2.0cm) IVSs1.8 cm LVDs3.1 (2.5-4.0cm) PWs2.0 cm Normal left ventricular chamber size, systolic function and wall motion to extent visualized. Left ventricular ejection fraction estimated to be 55 -60 %. Moderate left ventricular hypertrophy by 2-D. Posterior Echo-free space, may be due to pericardial fat or effusion. Mild left atrial enlargement . Right cardiac chamber sizes are within normal limits. Moderately focal aortic valve sclerosis with adequate cusp excursion. Moderately thickened mitral valve leaflets with normal excursion. Mitral annulus and aortic root calcification. Pulmonic valve not well visualized. Normal tricuspid valve structure. IVC at normal size with physiologic collapse. A color flow and spectral Doppler study was performed and revealed: Mild aortic insufficiency . Mild mitral regurgitation. Mitral diastolic velocities suggest reduced left ventricular relaxation c/w mild LV diastolic dysfunction (Grade I ). Trace tricuspid regurgitation. Tricuspid systolic velocities suggests peak right ventricular systolic pressure of 43 mmHg, consistent with moderate pulmonary hypertension .
--- NOTE | 2018-02-02 17:10 | Diagnostic Imaging Report ---
APPROVED REPORT CPT Code: 32152 Present Symptoms Comments: Pain BILATERAL: Imaging reveals a patent deep venous system bilaterally. There is no evidence of thrombus within the femoral, popliteal or tibial segments. The greater saphenous veins are also within normal limits. Doppler indicates normal spontaneous flow within these segments.
== END 2018-01-31 19:30 | disposition other institution (70) | DRG 305 ==
LOC: EMR 23:50 → 2W 01-31 00:13 → EDBEDREQ 01-31 01:29
DX: I16.0 Hypertensive urgency (principal); R07.89 Other chest pain; E78.5 Hyperlipidemia, unspecified; G20 Parkinson's disease; Z86.718 Personal history of other venous thrombosis and embolism; Z86.711 Personal history of pulmonary embolism; M81.0 Age-related osteoporosis without current pathological fracture; I25.10 Atherosclerotic heart disease of native coronary artery without angina pectoris; I10 Essential (primary) hypertension; E03.9 Hypothyroidism, unspecified; Z79.01 Long term (current) use of anticoagulants; I35.1 Nonrheumatic aortic (valve) insufficiency; I27.20 Pulmonary hypertension, unspecified
CPT/HCPCS: 36415; 71045; 71260; 74177; 80053; 81003; 82550; 83880; 84484; 85025; 85610; 85730; 87081; 93005; 93306; 93970; 96374; 99285

== ENCOUNTER 2018-03-14 19:14 | Inpatient (IN) | payer MEDICARE, BC ==
[~2018-03-14] VITALS: Ht 132.1 cm; Wt 42.6 kg
[~2018-03-14 19:14] MED LIST changes: +SINEMET 25-2501 EACH ORAL; +[UNRECOGNIZED DRUG - OTHER] ORAL
[2018-03-14] MEDS ORDERED: Dexamethasone 4mg/ml vial IVP ONE (19:30)
[2018-03-14] MEDS ORDERED: Dexamethasone 4mg/ml vial ONE (19:35)
--- NOTE | 2018-03-14 19:40 | Emergency Room Report ---
History of Present Illness General Chief Complaint: Dyspnea/Respdistress Source: Family Member, Medical Record Present Illness HPI Patient is an 88-year-old female presented after increased difficulty breathing. Patient had been given breathing treatment at her [id number]. Patient had prior history of Parkinson-like dementia. She had additionally had prior history of DVT as well as pulmonary embolism. Patient was noted to have increased swelling to both legs. She had prior history of pneumonitis and possible aspiration. Patient had been on a primarily pured diet. She had not been having any noted fever.Patient had acute onset of symptoms. Patient was noted to have some increased difficulty with respirations. She was noted to have increased work of breathing and was therefore brought to the hospital. Allergies: Coded Allergies: STRAWBERRY (Verified Allergy, Unknown, Rash, 06/29/13) COPIED FROM UNCODED SECTION VALSARTAN (Verified Allergy, Unknown, 03/09/11) Patient History Past Medical History: see triage record Last Menstrual Period: n/a Now: No Reviewed Nursing Documentation: PMH: Agreed; PSxH: Agreed Nursing Documentation-PMH Past Medical History: No History, Except For Hx Cardiac Problems: Yes Hx Hypertension: Yes Hx Cancer: No Hx Gastrointestinal Problems: No Hx Neurological Problems: Yes Hx Dementia: Yes Hx Parkinson's Disease: Yes Hx Memory Loss: Yes Hx Weakness: Yes Review of Systems All Other Systems: negative except mentioned in HPI Physical Exam Vital Signs Date Time Temp Pulse Resp B/P (MAP) Pulse Ox O2 Delivery O2 Flow Rate FiO2 03/14/18 19:17 97.5 84 21 169/82 80 Room Air Sp02 EP Interpretation: reviewed, normal General Appearance: alert, severe distress, Chronically Ill Head: atraumatic ENT: uvula midline Neck: no bony tend, limited range of motion Respiratory: respiratory distress, wheezing Cardiovascular #1: regular rate, rhythm, edema - bilateral 3+ Gastrointestinal: normal inspection, normal bowel sounds, non tender, soft, no guarding, no hernia Genitourinary: no CVA tenderness Musculoskeletal: normal range of motion, decreased range of motion - kyphotic Neurologic: normal inspection, alert, responsive, speech normal Psychiatric: normal inspection, anxious Skin: no rash Procedures Critical Care Time Critical Care Time Patient had a critical medical condition which untreated could potentially result in life or limb threatening injury. Total critical care time excluding procedures approximately 45 minutes. Medical Decision Making Diagnostic Impression: Primary Impression: Respiratory failure Additional Impression: CHF (congestive heart failure) ER Course Patient presented for shortness of breath. Differential diagnosis include was not limited to pneumonia, upper airway obstruction, aspiration, congestive heart failure among others. Because of complexity of patient's case laboratory testing and imaging studies were ordered. Patient was noted to have some apparent stridor. Patient was given IV steroids. She started on BiPAP. She was given multiple breathing treatments. A arterial blood gas showed some slight CO2 retention. Patient was noted to have some initial stridor which improved with manipulation of patient's jaw.There did not appear to be any evident of abscess. Patient was given IV Lasix due to elevated BNP. patient's troponin was noted to be negative. Dr. Herminio Diallo was contacted for inpatient management due to primary care physician. The patient will be admitted to ICU in critical condition. Labs Test 03/14/18 19:30 03/14/18 19:40 03/14/18 19:47 Troponin I 0.027 ng/mL (0.000-0.056) White Blood Count 10.4 K/UL (4.8-10.8) Red Blood Count 4.23 M/UL (4.20-5.40) Hemoglobin 13.1 G/DL (12.0-16.0) Hematocrit 40.8 % (37.0-47.0) Mean Corpuscular Volume 97 FL (80-99) Mean Corpuscular Hemoglobin 31.0 PG (27.0-31.0) Mean Corpuscular Hemoglobin Concent 32.1 G/DL (32.0-36.0) Red Cell Distribution Width 14.3 % (11.6-14.8) Platelet Count 112 K/UL (150-450) Mean Platelet Volume 10.8 FL (6.5-10.1) Neutrophils (%) (Auto) % (45.0-75.0) Lymphocytes (%) (Auto) % (20.0-45.0) Monocytes (%) (Auto) % (1.0-10.0) Eosinophils (%) (Auto) % (0.0-3.0) Basophils (%) (Auto) % (0.0-2.0) Differential Total Cells Counted 100 Neutrophils % (Manual) 89 % (45-75) Lymphocytes % (Manual) 7 % (20-45) Monocytes % (Manual) 3 % (1-10) Eosinophils % (Manual) 0 % (0-3) Basophils % (Manual) 1 % (0-2) Band Neutrophils 0 % (0-8) Platelet Estimate Decreased Platelet Morphology Normal Red Blood Cell Morphology Normal Prothrombin Time 26.8 SEC (9.30-11.50) Prothromb Time International Ratio 2.7 (0.9-1.1) Sodium Level 144 MMOL/L (136-145) Potassium Level 4.0 MMOL/L (3.5-5.1) Chloride Level 108 MMOL/L (98-107) Carbon Dioxide Level 29 MMOL/L (21-32) Anion Gap 7 mmol/L (5-15) Blood Urea Nitrogen 32 mg/dL (7-18) Creatinine 1.1 MG/DL (0.55-1.30) Estimat Glomerular Filtration Rate mL/min (>60) Glucose Level 131 MG/DL (74-106) Lactic Acid Level 1.80 mmol/L (0.4-2.0) Calcium Level 9.8 MG/DL (8.5-10.1) Total Bilirubin 0.3 MG/DL (0.2-1.0) Aspartate Amino Transf (AST/SGOT) 42 U/L (15-37) Alanine Aminotransferase (ALT/SGPT) 18 U/L (12-78) Alkaline Phosphatase 106 U/L (46-116) Total Creatine Kinase 86 U/L (26-308) Creatine Kinase MB 3.3 NG/ML (0.0-3.6) Creatine Kinase MB Relative Index 3.8 Pro-B-Type Natriuretic Peptide 2134 pg/mL (0-125) Total Protein 7.1 G/DL (6.4-8.2) Albumin 3.4 G/DL (3.4-5.0) Globulin 3.7 g/dL Albumin/Globulin Ratio 0.9 (1.0-2.7) Arterial Blood pH 7.362 (7.350-7.450) Arterial Blood Partial Pressure CO2 53.7 mmHg (35.0-45.0) Arterial Blood Partial Pressure O2 305.0 mmHg (75.0-100.0) Arterial Blood HCO3 29.8 mmol/L (22.0-26.0) Arterial Blood Oxygen Saturation 99.7 % (95-100) Arterial Blood Base Excess 3.3 (-2-2) Cruzito Test Positive EKG Diagnostic Results Rate: normal Rhythm: other ST Segments: no acute changes Last Vital Signs Date Time Temp Pulse Resp B/P (MAP) Pulse Ox O2 Delivery O2 Flow Rate FiO2 03/14/18 19:17 97.5 84 21 169/82 80 Room Air Status: unchanged Disposition: ADMITTED INPATIENT Condition: Critical Mike Cast MD Mar 14, 2018 19:40
[2018-03-14 19:59] LABS: INR 2.7 (0.9-1.1)
[2018-03-14] MEDS ORDERED: Albuterol/Ipratropium 3ml neb HHN ONE (20:00)
[2018-03-14 20:02] LABS: HEMATOCRIT 40.8 % (37.0-47.0); HEMOGLOBIN 13.1 G/DL (12.0-16.0); MEAN CORPUSCULAR VOLUME 97 FL (80-99); PLATELET COUNT 112 K/UL (150-450); RED BLOOD COUNT 4.23 M/UL (4.20-5.40); RED CELL DISTRIBUTION WIDTH 14.3 % (11.6-14.8); WHITE BLOOD COUNT 10.4 K/UL (4.8-10.8)
[2018-03-14 20:11] LABS: ANION GAP 7 mmol/L (5-15); BLOOD UREA NITROGEN 32 mg/dL (7-18); CALCIUM 9.8 MG/DL (8.5-10.1); CARBON DIOXIDE 29 MMOL/L (21-32); CHLORIDE 108 MMOL/L (98-107); CREATININE 1.1 MG/DL (0.55-1.30); SODIUM 144 MMOL/L (136-145)
[2018-03-14 20:25] LABS: ALANINE AMINOTRANSFERASE 18 U/L (12-78); ALBUMIN 3.4 G/DL (3.4-5.0); ALBUMIN/GLOBULIN RATIO 0.9 (1.0-2.7); ALKALINE PHOSPHATASE 106 U/L (46-116); ASPARTATE AMINO TRANSFERASE 42 U/L (15-37); BILIRUBIN,TOTAL 0.3 MG/DL (0.2-1.0); CKMB 3.3 NG/ML (0.0-3.6); CREATINE KINASE 86 U/L (26-308)
[2018-03-14] MEDS ORDERED: WARFARIN SODIUM6 MG ORAL (20:28)
[2018-03-14 20:36] VITALS: BP 169/82
[2018-03-14] MEDS ORDERED: ARTIFICIAL TEAR15 ML BOTH EYES (20:43)
[2018-03-14] MEDS ORDERED: CALCIUM500 M2 PO (20:43)
[2018-03-14] MEDS ORDERED: ROPINIROLE HCL1 MG PO (20:43)
[2018-03-14] MEDS ORDERED: VITAMIN C500 M1 ORAL (20:43)
[2018-03-14] MEDS ORDERED: SINEMET 25-2501 EACH ORAL (20:43)
[2018-03-14] MEDS ORDERED: CULTURELLE1 EAC1 PO (20:43)
[2018-03-14] MEDS ORDERED: AMLODIPINE BES2.5 MG ORAL (20:43)
[2018-03-14] MEDS ORDERED: DOCUSATE SODIU100 MG ORAL (20:43)
[2018-03-14] MEDS ORDERED: DUONEB 0.5-3(2.53 ML HHN (20:45)
[2018-03-14] MEDS ORDERED: MULTIVITAMINS1 EAC2 ORAL (20:45)
[2018-03-14] MEDS ORDERED: Albuterol/Ipratropium 3ml neb HHN PRN (22:00)
[2018-03-14] MEDS ORDERED: Miralax 17gm pkt ORAL PRN (22:00)
[2018-03-14] MEDS: Solu-MEDROL 40mg Inj IVP SCH (22:00)
[2018-03-14] MEDS ORDERED: Milk of Magnesia 30ml Ud ORAL PRN (22:00)
--- NOTE | 2018-03-14 22:01 | Cardiology Progress Note ---
Subjective Subjective bronchospasm / stridor htn parkinsonism ? aspiration risk pulm evaluation requested d/w mr ojeda son in law hhn steroid may need ent swallow eval eventually cod statu d/.w pts dtrr advance directive been in place per dtr no invasei ventilation intubation or cpr [id number] Objective Last 24 Hour Vital Signs Date Time Temp Pulse Resp B/P (MAP) Pulse Ox O2 Delivery O2 Flow Rate FiO2 03/14/18 21:17 93 16 97 Facial 80 03/14/18 20:36 97.5 96 21 169/82 96 Bi-pap 80 03/14/18 20:36 102 21 Bi-pap 80 03/14/18 20:26 102 21 96 Bi-pap 80 03/14/18 20:12 91 29 96 Bi-pap 100 03/14/18 19:40 89 23 95 Facial 100 03/14/18 19:40 89 23 Bi-pap 100 03/14/18 19:17 97.5 84 21 169/82 80 Room Air Laboratory Tests Test 03/14/18 19:30 03/14/18 19:40 03/14/18 19:47 Troponin I 0.027 ng/mL (0.000-0.056) White Blood Count 10.4 K/UL (4.8-10.8) Red Blood Count 4.23 M/UL (4.20-5.40) Hemoglobin 13.1 G/DL (12.0-16.0) Hematocrit 40.8 % (37.0-47.0) Mean Corpuscular Volume 97 FL (80-99) Mean Corpuscular Hemoglobin 31.0 PG (27.0-31.0) Mean Corpuscular Hemoglobin Concent 32.1 G/DL (32.0-36.0) Red Cell Distribution Width 14.3 % (11.6-14.8) Platelet Count 112 K/UL (150-450) L Mean Platelet Volume 10.8 FL (6.5-10.1) H Neutrophils (%) (Auto) % (45.0-75.0) Lymphocytes (%) (Auto) % (20.0-45.0) Monocytes (%) (Auto) % (1.0-10.0) Eosinophils (%) (Auto) % (0.0-3.0) Basophils (%) (Auto) % (0.0-2.0) Neutrophils % (Manual) Pending Lymphocytes % (Manual) Pending Platelet Estimate Pending Platelet Morphology Pending Prothrombin Time 26.8 SEC (9.30-11.50) H Prothromb Time International Ratio 2.7 (0.9-1.1) H Sodium Level 144 MMOL/L (136-145) Potassium Level 4.0 MMOL/L (3.5-5.1) Chloride Level 108 MMOL/L (98-107) H Carbon Dioxide Level 29 MMOL/L (21-32) Anion Gap 7 mmol/L (5-15) Blood Urea Nitrogen 32 mg/dL (7-18) H Creatinine 1.1 MG/DL (0.55-1.30) Estimat Glomerular Filtration Rate mL/min (>60) Glucose Level 131 MG/DL (74-106) H Lactic Acid Level 1.80 mmol/L (0.4-2.0) Calcium Level 9.8 MG/DL (8.5-10.1) Total Bilirubin 0.3 MG/DL (0.2-1.0) Aspartate Amino Transf (AST/SGOT) 42 U/L (15-37) H Alanine Aminotransferase (ALT/SGPT) 18 U/L (12-78) Alkaline Phosphatase 106 U/L (46-116) Total Creatine Kinase 86 U/L (26-308) Creatine Kinase MB 3.3 NG/ML (0.0-3.6) Creatine Kinase MB Relative Index 3.8 Pro-B-Type Natriuretic Peptide 2134 pg/mL (0-125) H Total Protein 7.1 G/DL (6.4-8.2) Albumin 3.4 G/DL (3.4-5.0) Globulin 3.7 g/dL Albumin/Globulin Ratio 0.9 (1.0-2.7) L Arterial Blood pH 7.362 (7.350-7.450) Arterial Blood Partial Pressure CO2 53.7 mmHg (35.0-45.0) H Arterial Blood Partial Pressure O2 305.0 mmHg (75.0-100.0) H Arterial Blood HCO3 29.8 mmol/L (22.0-26.0) H Arterial Blood Oxygen Saturation 99.7 % (95-100) Arterial Blood Base Excess 3.3 (-2-2) H Cruzito Test Positive Microbiology Date/Time Source Procedure Growth Status 03/14/18 19:43 Nasal Nares Influenza Types A,B Antigen (ERENDIRA) - Final Complete Herminio Diallo MD Mar 14, 2018 22:01
[2018-03-14 22:14] VITALS: BP 124/77
[2018-03-14 22:43] VITALS: BP 144/85
[2018-03-14 23:00] VITALS: BP 159/74
[2018-03-15] VITALS (15 sets, daily range): BP systolic 90–170; BP diastolic 52–87
--- NOTE | 2018-03-15 02:45 | History and Physical Report ---
DATE OF ADMISSION: 03/14/2018 CARDIOLOGY EVALUATION ADMITTING PHYSICIAN: Herminio Diallo M.D. REASON FOR EVALUATION: Bronchospasm. HISTORY OF PRESENT ILLNESS: This is an 88-year-old female, who is known to me from prior evaluation and hospitalization. The patient resides in a facility and is attended by her daughter on a regular basis. She presented to the hospital here because of increasing sounds at the time of breathing. At that time, her daughter was with her in the afternoon. She called me and it was noticed that the patient was able to talk. Breathing treatments were recommended to be repeated, recommendations for the patient be taken to the emergency room should there be any worsening or no improvement in her symptoms. Apparently, that did happen, the patient did not improve and actually the patient's daughter with the help of her , brought the patient to the emergency room here at [facility]. In the emergency room, was evaluated by the emergency physician, was noted to have some stridor, was given some steroids and breathing treatments and was given some diuretics because of her edema and was transferred and is now being admitted. On my arrival, the patient was comfortable, although she is on a BiPAP treatment. She is no longer having any stridor at this time. She is somewhat of a poor historian and therefore is not trusted with information. There has been no reports of vomiting or fever or diarrhea through her daughter. Her daughter indicates that this morning when she was trying to feed, she did not want the food, was pushing the food. Nevertheless, it is unclear what else happened prior to her daughter's reevaluation in the afternoon. PAST MEDICAL HISTORY: The patient's past medical history is positive for intertrochanteric fracture of the hip on the left side, status post ORIF, postoperative bleeding, history of delirium cognitive impairment, obsessive-compulsive personality disorder, history of abdominal wall and left inguinal hernia, history of right hemiparesis, Parkinson syndrome, multifactorial, gait instability, history of deep venous thrombosis, history of pulmonary embolism, atherosclerotic disease of unknown detail, diastolic dysfunction on echocardiogram, systemic hypertension, hyperlipidemia, rectal prolapse, status post repair; hypothyroidism, osteoporosis, bronchospasm and possible aspiration pneumonitis as mentioned recently for which she was [place] [facility] [place] She was treated with steroids. ALLERGIES: She is allergic to Diovan and strawberries. MEDICATIONS: At the convalescent facility include Norvasc 2.5 mg daily, calcium 500 mg twice a day, Sinemet 25/250 one tablet at 7:30 and one tablet at 12:30, Colace 100 mg daily, ferrous sulfate 325 mg a day, Synthroid 112 mcg, Remeron 15 mg daily, Protonix 40 mg daily, potassium daily with food only , ropinirole 1 mg by mouth two times a day, simvastatin 20 mg at nighttime, and Coumadin I think the most recent dosages are as follows, 6 mg daily at this time. SOCIAL HISTORY: She resides in a board and care facility. She does not smoke, does not drink alcoholic beverages. REVIEW OF SYSTEMS: GASTROINTESTINAL: There have been no reports of nausea, vomiting, or diarrhea. No bloody stools. GENITOURINARY: She is incontinent. PULMONARY: She had a minor cough as of this morning and as mentioned with some bronchospasm with wheezes or laryngospasms earlier. CONSTITUTIONAL: Negative. NEUROLOGIC: No change in mentation. PHYSICAL EXAMINATION: GENERAL: Shows to be elderly female, awake and responsive, on BiPAP treatment. NECK: Supple. LUNGS: There are no wheezes or bronchospasms or stridor at the time of my examination. Her lungs are relatively clear. CARDIAC: Regular rate and rhythm. No heaves or thrills noted. ABDOMEN: Soft and nontender. Positive bowel sounds. EXTREMITIES: Showed 2+ edema of the lower extremities. NEUROLOGICAL: She is responsive and communicative. LABORATORY AND DIAGNOSTIC DATA: Her laboratory values, EKG basically shows sinus rhythm and maybe some premature atrial complexes. There are no ST or T-wave abnormalities. There is some motion artifact on this EKG noted. Her laboratories, her blood gas pH is 7.36, pCO2 54, pO2 of 305, and bicarbonate of 30. White count is 10, hemoglobin 13, and platelet count of 112, which is lower than she had been on the last occasion at 187, but she has had levels as low as 126 on prior occasions in April of 2015. Sodium 144, potassium 4, chloride 108, bicarbonate 29, BUN 32, creatinine 1.1, and glucose of 131. Lactic acid of 1.8. Calcium is 9.8. AST and ALT within normal limits. Troponin of 0.27. ProBNP is only 2100. Her albumin is 3.4. Coags, INR 2.4. Chest x-ray has been performed, although I do not have the report. ASSESSMENT AND PLAN: 1. Bronchospasm/stridor seemed to have resolved. 2. History of Parkinson's. 3. Hypertension history. 4. Dementia. 5. History of deep venous thrombosis and pulmonary embolism. 6. Osteoporosis. 7. Diastolic dysfunction. 8. Hyperlipidemia. This patient will be admitted to step-down unit. The patient will receive [id number] breathing treatments and steroids will be continued for the time being. I have asked the medical stenographer at the request of Mr. the patient's son wants to see the patient. The vitals, flu swab was negative so far. Diuretics have been administered in the emergency room. We will monitor the level of diuresis. BiPAP will be continued and for the time being she will be kept NPO. She will need swallow evaluation in the morning and she will continue to take otherwise her usual medications. Empiric antibiotics will be considered after discussion with the medical stenographer. She may require ENT evaluation. We will discuss with Pulmonary tomorrow morning. It is of note that advance directives were discussed with the patient's daughter. The patient may have some advance directives and her daughter believes that she does not want to have any heroic measures. We did discuss until those data is available after discussion at her request that the patient will not have any invasive ventilation or intubation or CPR and this was confirmed by the patient's daughter. Herminio Diallo M.D. DR: ZACHARY JOB#: [id number] CC: REHANA
[2018-03-15] MEDS: Solu-MEDROL 40mg Inj IVP SCH ×3 (05:59→23:39)
[2018-03-15 06:21] LABS: ALANINE AMINOTRANSFERASE 47 U/L (12-78); ALBUMIN 3.2 G/DL (3.4-5.0); ALBUMIN/GLOBULIN RATIO 0.9 (1.0-2.7); ALKALINE PHOSPHATASE 109 U/L (46-116); ANION GAP 9 mmol/L (5-15); ASPARTATE AMINO TRANSFERASE 36 U/L (15-37); BILIRUBIN,TOTAL 0.4 MG/DL (0.2-1.0); BLOOD UREA NITROGEN 30 mg/dL (7-18); CALCIUM 9.8 MG/DL (8.5-10.1); CARBON DIOXIDE 27 MMOL/L (21-32); CHLORIDE 107 MMOL/L (98-107); CREATININE 1.1 MG/DL (0.55-1.30); POTASSIUM 4.3 MMOL/L (3.5-5.1); SODIUM 143 MMOL/L (136-145)
[2018-03-15] MEDS: Albuterol/Ipratropium 3ml neb HHN SCH ×4 (07:24→20:13)
[2018-03-15] MEDS ORDERED: Levodopa/Carbidopa 25/250 tab ORAL SCH (07:30)
--- NOTE | 2018-03-15 08:53 | Pulmonolgy Critical Care Note ---
Critical Care - Asmt/Plan Problems: (1) Bronchospasm (2) Respiratory failure (3) History of pulmonary embolism (4) Chronic diastolic CHF (congestive heart failure) (5) Mild cognitive impairment (6) Dyspnea Assessment/Plan: 88 F h/o PD, dementia, CHF/DD, DVT/PE on A/C, hip Fx B&C resident p/w respiratory distress with bronchospasm and stridor likely 2/2 an aspiration event/pneumonitis with a component of decompensated HF and pulmonary edema. -Change BiPAP to 12/5 qHS and PRN -Take BiPAP off now and attempt NC -Check ABG in 30 minutes -Optimize pulmonary hygiene/mobilize as tolerated -RTC and PRN HHN's -Decrease SM to 40 IV TID and taper -PRN racemic EPI -ENT eval pending -Monitor volumes and renal function, lasix 20 IV x 1 given -NPO, [place] eval, aspiration precautions -DVT Px: A/C (Coumadin) -DNAR/DNI -Tx to DAVID D/W daughter and son in law D/W [employer] CCT 60 Critical Care - Objective Last 24 Hour Vital Signs Date Time Temp Pulse Resp B/P (MAP) Pulse Ox O2 Delivery O2 Flow Rate FiO2 03/15/18 08:00 Bi-pap 03/15/18 08:00 40 03/15/18 08:00 98.0 71 15 160/80 (106) 100 03/15/18 07:24 71 21 100 Bi-pap 15.0 40 03/15/18 07:22 70 24 100 Facial 40 03/15/18 07:00 70 15 147/75 (99) 100 03/15/18 06:00 67 19 155/84 (107) 100 03/15/18 05:41 84 21 100 Facial 40 03/15/18 05:00 70 19 134/86 (102) 100 03/15/18 04:00 40 03/15/18 04:00 Bi-pap 03/15/18 04:00 97.6 73 14 113/59 (77) 100 03/15/18 04:00 71 03/15/18 03:27 73 17 100 Facial 40 03/15/18 03:00 70 19 131/71 (91) 100 03/15/18 02:00 69 17 92/58 (69) 100 03/15/18 01:21 72 18 100 Facial 40 03/15/18 01:00 73 15 90/52 (65) 100 03/15/18 00:00 77 03/15/18 00:00 Bi-pap 03/15/18 00:00 97.7 74 16 99/59 (72) 100 03/15/18 00:00 80 03/14/18 23:59 Bi-pap 03/14/18 23:00 82 17 159/74 (102) 100 03/14/18 23:00 81 18 100 Facial 50 03/14/18 22:44 83 03/14/18 22:43 97.7 82 20 144/85 (104) 84 03/14/18 22:19 97.5 88 13 124/77 98 80 03/14/18 22:14 97.5 88 13 124/77 98 80 03/14/18 21:17 93 16 97 Facial 80 03/14/18 20:36 97.5 96 21 169/82 96 Bi-pap 80 03/14/18 20:36 102 21 Bi-pap 80 03/14/18 20:26 102 21 96 Bi-pap 80 03/14/18 20:12 91 29 96 Bi-pap 100 03/14/18 19:40 89 23 95 Facial 100 03/14/18 19:40 89 23 Bi-pap 100 03/14/18 19:17 97.5 84 21 169/82 80 Room Air Status: somnolent Condition: improving HEENT: atraumatic, normocephalic Lungs: rales - BiB Heart: HR/BP stable Abdomen: soft, non-tender, active bowel sounds Extremities: edema - 1+, cyanosis - no, clubbing - no Micro: Microbiology Date/Time Source Procedure Growth Status 03/14/18 19:43 Nasal Nares Influenza Types A,B Antigen (ERENDIRA) - Final Complete Blood Sugars: BS controlled Critical Care - Subjective ROS Limited/Unobtainable: Yes ICU Day: 2 Intubation Day: BiPAP Interval Events: 88 F h/o PD, dementia, CHF/DD, DVT/PE on A/C, hip Fx B&C resident p/w respiratory distress, SOB, wheezing, stridor. AFVSS 7.36/53/305/29/99, BNP elevated. She was given IV lasix, steroids, HHN;s in the ER, placed on BiPAP and admitted to the ICU. Other than elevated BP she has been stable on BiPAP ON , 21/06 40%. Per her daughter she is essentially bed bound @ the B&C, eats puree with assistance. She had a failed HH repair in the past. She was admitted to [facility] in 2018 with aspiration pneumonitis and has been on HHN's since then. No h/o lung disease prior to that, no COPD/asthma, no T/E/D use. Condition: improving IV Access: peripheral EKG Rhythm: Sinus Rhythm FI02: 40 Vent Support Mode: BiLevel Sputum Amount: None I&O: Intake and Output 03/14/18 03/15/18 19:00 07:00 Intake Total 0 ml Balance 0 ml Intake Oral 0 ml # Voids 1 Subjective: RICO CXR: pending Labs: Laboratory Tests Test 03/14/18 19:30 03/14/18 19:40 03/14/18 19:47 03/15/18 04:25 Troponin I 0.027 ng/mL (0.000-0.056) 0.036 ng/mL (0.000-0.056) White Blood Count 10.4 K/UL (4.8-10.8) Red Blood Count 4.23 M/UL (4.20-5.40) Hemoglobin 13.1 G/DL (12.0-16.0) Hematocrit 40.8 % (37.0-47.0) Mean Corpuscular Volume 97 FL (80-99) Mean Corpuscular Hemoglobin 31.0 PG (27.0-31.0) Mean Corpuscular Hemoglobin Concent 32.1 G/DL (32.0-36.0) Red Cell Distribution Width 14.3 % (11.6-14.8) Platelet Count 112 K/UL (150-450) L Mean Platelet Volume 10.8 FL (6.5-10.1) H Neutrophils (%) (Auto) % (45.0-75.0) Lymphocytes (%) (Auto) % (20.0-45.0) Monocytes (%) (Auto) % (1.0-10.0) Eosinophils (%) (Auto) % (0.0-3.0) Basophils (%) (Auto) % (0.0-2.0) Differential Total Cells Counted 100 Neutrophils % (Manual) 89 % (45-75) H Lymphocytes % (Manual) 7 % (20-45) L Monocytes % (Manual) 3 % (1-10) Eosinophils % (Manual) 0 % (0-3) Basophils % (Manual) 1 % (0-2) Band Neutrophils 0 % (0-8) Platelet Estimate Decreased L Platelet Morphology Normal Red Blood Cell Morphology Normal Prothrombin Time 26.8 SEC (9.30-11.50) H 30.2 SEC (9.30-11.50) H Prothromb Time International Ratio 2.7 (0.9-1.1) H 3.0 (0.9-1.1) H Sodium Level 144 MMOL/L (136-145) 143 MMOL/L (136-145) Potassium Level 4.0 MMOL/L (3.5-5.1) 4.3 MMOL/L (3.5-5.1) Chloride Level 108 MMOL/L (98-107) H 107 MMOL/L (98-107) Carbon Dioxide Level 29 MMOL/L (21-32) 27 MMOL/L (21-32) Anion Gap 7 mmol/L (5-15) 9 mmol/L (5-15) Blood Urea Nitrogen 32 mg/dL (7-18) H 30 mg/dL (7-18) H Creatinine 1.1 MG/DL (0.55-1.30) 1.1 MG/DL (0.55-1.30) Estimat Glomerular Filtration Rate mL/min (>60) mL/min (>60) Glucose Level 131 MG/DL (74-106) H 144 MG/DL (74-106) H Lactic Acid Level 1.80 mmol/L (0.4-2.0) Calcium Level 9.8 MG/DL (8.5-10.1) 9.8 MG/DL (8.5-10.1) Total Bilirubin 0.3 MG/DL (0.2-1.0) 0.4 MG/DL (0.2-1.0) Aspartate Amino Transf (AST/SGOT) 42 U/L (15-37) H 36 U/L (15-37) Alanine Aminotransferase (ALT/SGPT) 18 U/L (12-78) 47 U/L (12-78) Alkaline Phosphatase 106 U/L (46-116) 109 U/L (46-116) Total Creatine Kinase 86 U/L (26-308) Creatine Kinase MB 3.3 NG/ML (0.0-3.6) Creatine Kinase MB Relative Index 3.8 Pro-B-Type Natriuretic Peptide 2134 pg/mL (0-125) H 2690 pg/mL (0-125) H Total Protein 7.1 G/DL (6.4-8.2) 6.8 G/DL (6.4-8.2) Albumin 3.4 G/DL (3.4-5.0) 3.2 G/DL (3.4-5.0) L Globulin 3.7 g/dL 3.6 g/dL Albumin/Globulin Ratio 0.9 (1.0-2.7) L 0.9 (1.0-2.7) L Arterial Blood pH 7.362 (7.350-7.450) Arterial Blood Partial Pressure CO2 53.7 mmHg (35.0-45.0) H Arterial Blood Partial Pressure O2 305.0 mmHg (75.0-100.0) H Arterial Blood HCO3 29.8 mmol/L (22.0-26.0) H Arterial Blood Oxygen Saturation 99.7 % (95-100) Arterial Blood Base Excess 3.3 (-2-2) H Cruzito Test Positive Magnesium Level 1.9 MG/DL (1.8-2.4) Kevyn Caraballo MD Mar 15, 2018 08:52
[2018-03-15] MEDS ORDERED: Racemic EPINEPHrine 2.25% 0.5ml HHN PRN ×2 (09:00→13:00)
[2018-03-15] MEDS ORDERED: Albuterol/Ipratropium 3ml neb HHN SCH (09:00)
[2018-03-15] MEDS ORDERED: Pantoprazole Inj IV SCH (09:00)
[2018-03-15] MEDS ORDERED: Varibar Honey 250ml MC PRN ×2 (10:45→13:00)
[2018-03-15] MEDS ORDERED: Varibar Nectar 240ml MC PRN ×2 (10:45→13:00)
[2018-03-15] MEDS ORDERED: Varibar Pudding 230ml MC PRN ×2 (10:45→13:00)
[2018-03-15] MEDS ORDERED: Solu-MEDROL 40mg Inj IVP SCH (12:00)
[2018-03-15] MEDS: Levodopa/Carbidopa 25/250 tab ORAL SCH (12:30)
[2018-03-15] MEDS ORDERED: Albuterol/Ipratropium 3ml neb HHN PRN (13:00)
[2018-03-15] MEDS ORDERED: Miralax 17gm pkt ORAL PRN (13:00)
--- NOTE | 2018-03-15 13:10 | Diagnostic Imaging Report ---
Indication: Dyspnea Comparison: 01/31/2018 A single view chest radiograph was obtained. Findings: Lung volumes are extremely low. There is a lucency projected over the mediastinum and heart. This could represent a dilated air-filled esophagus Cardiomegaly is present. Basilar densities may be small pleural effusions. There is likely basilar atelectasis as well. Patient is rotated. Bones are osteopenic. There is an azygos fissure noted. IVC filter noted. IMPRESSION: Limited evaluation. Suggestion of small basilar effusions with atelectasis and/or infiltrates. Dilated esophagus suspected.
--- NOTE | 2018-03-15 17:56 | Cardiology Report ---
APPROVED REPORT EKG Measurement Heart [id number] Normal sinus rhythm Right bundle branch block Abnormal ECG
--- NOTE | 2018-03-15 18:02 | Cardiology Report ---
APPROVED REPORT EKG Measurement Heart [id number] Sinus rhythm with premature atrial complexes Nonspecific ST and T wave abnormality Abnormal ECG
--- NOTE | 2018-03-15 18:13 | Cardiology Report ---
APPROVED REPORT EXAM: Two-dimensional and M-mode echocardiogram with Doppler and color Doppler. M-Mode DIMENSIONS IVSd1.6 (0.7-1.1cm)Left Atrium (MM)4.5 (1.6-4.0cm) LVDd4.4 (3.5-5.6cm)Aortic Root3.6 (2.0-3.7cm) PWd1.5 (0.7-1.1cm)Aortic Cusp Exc.1.5 (1.5-2.0cm) LVDs3.1 (2.5-4.0cm) PWs1.7 cm Normal left ventricular chamber size, systolic function and wall motion to extent visualized. Left ventricular ejection fraction estimated to be 50- 55 %. Moderate left ventricular hypertrophy by 2-D. No evidence of pericardial effusion. Severe left atrial enlargement . Moderate right atrial enlargement . Right ventricular size is within normal limits. Moderate focal aortic valve sclerosis with adequate cusp excursion. Moderately thickened mitral valve leaflets with normal excursion. Heavy mitral annulus and moderate aortic root calcification. Pulmonic valve not well visualized. Normal tricuspid valve structure. IVC at normal size with physiologic collapse. A color flow and spectral Doppler study was performed and revealed: Moderate aortic insufficiency . Mild mitral regurgitation. Mitral diastolic velocities suggest reduced left ventricular relaxation c/w mild LV diastolic dysfunction (Grade I). Trace tricuspid regurgitation. Tricuspid systolic velocities suggests peak right ventricular systolic pressure of 15 mmHg.
--- NOTE | 2018-03-15 20:01 | Cardiology Progress Note ---
Assessment/Plan Assessment/Plan 1. Bronchospasm/stridor seemed to have resolved. 2. History of Parkinson's. 3. Hypertension history. 4. Dementia. 5. History of deep venous thrombosis and pulmonary embolism. 6. Osteoporosis. 7. Diastolic dysfunction. 8. Hyperlipidemia. resume diet and med There may be a positional component to her stridor as she had soem when i tried to lay her down d/w pulm bipap prn steroid prn aspiration precaution ent consultation requested may benefit form laryngoscopy seh will be difficutl to image otherwise lasix again tonite Subjective ROS Limited/Unobtainable: Yes Cardiovascular: Denies: chest pain, lightheadedness Respiratory: Denies: shortness of breath Gastrointestinal/Abdominal: Denies: abdominal pain Objective Last 24 Hour Vital Signs Date Time Temp Pulse Resp B/P (MAP) Pulse Ox O2 Delivery O2 Flow Rate FiO2 03/15/18 16:03 78 18 100 Nasal Cannula 3.0 32 03/15/18 16:00 Bi-pap 03/15/18 16:00 81 03/15/18 16:00 97.7 72 19 154/87 (109) 97 03/15/18 15:53 81 14 100 Nasal Cannula 3.0 32 03/15/18 13:30 173/86 03/15/18 12:00 Bi-pap 03/15/18 12:00 82 03/15/18 12:00 98.8 77 16 160/77 (104) 100 03/15/18 11:30 80 21 100 Nasal Cannula 3.0 32 03/15/18 11:17 72 11 100 Nasal Cannula 3.0 32 03/15/18 11:00 74 16 144/66 (92) 100 03/15/18 10:00 75 15 155/70 (98) 100 03/15/18 09:00 74 14 170/78 (108) 100 03/15/18 08:43 74 20 100 03/15/18 08:00 78 03/15/18 08:00 Bi-pap 03/15/18 08:00 40 03/15/18 08:00 98.0 71 15 160/80 (106) 100 03/15/18 07:35 71 20 100 Bi-pap 15.0 40 03/15/18 07:24 71 21 100 Bi-pap 15.0 40 03/15/18 07:22 70 24 100 Facial 40 03/15/18 07:00 70 15 147/75 (99) 100 03/15/18 06:00 67 19 155/84 (107) 100 03/15/18 05:41 84 21 100 Facial 40 03/15/18 05:00 70 19 134/86 (102) 100 03/15/18 04:00 40 03/15/18 04:00 Bi-pap 03/15/18 04:00 97.6 73 14 113/59 (77) 100 03/15/18 04:00 71 03/15/18 03:27 73 17 100 Facial 40 03/15/18 03:00 70 19 131/71 (91) 100 03/15/18 02:00 69 17 92/58 (69) 100 03/15/18 01:21 72 18 100 Facial 40 03/15/18 01:00 73 15 90/52 (65) 100 03/15/18 00:00 77 03/15/18 00:00 Bi-pap 03/15/18 00:00 97.7 74 16 99/59 (72) 100 03/15/18 00:00 80 03/14/18 23:59 Bi-pap 03/14/18 23:00 82 17 159/74 (102) 100 03/14/18 23:00 81 18 100 Facial 50 03/14/18 22:44 83 03/14/18 22:43 97.7 82 20 144/85 (104) 84 03/14/18 22:19 97.5 88 13 124/77 98 80 03/14/18 22:14 97.5 88 13 124/77 98 80 03/14/18 21:17 93 16 97 Facial 80 03/14/18 20:36 97.5 96 21 169/82 96 Bi-pap 80 03/14/18 20:36 102 21 Bi-pap 80 03/14/18 20:26 102 21 96 Bi-pap 80 03/14/18 20:12 91 29 96 Bi-pap 100 General Appearance: no apparent distress Neck: supple Cardiovascular: normal rate Respiratory/Chest: lungs clear, stridor - positional Abdomen: normal bowel sounds, non tender, soft Extremities: non-tender Intake and Output 03/14/18 03/15/18 18:59 06:59 Intake Total 0 ml Balance 0 ml Intake Oral 0 ml # Voids 1 Laboratory Tests Test 03/15/18 04:25 03/15/18 09:32 Prothrombin Time 30.2 SEC (9.30-11.50) H Prothromb Time International Ratio 3.0 (0.9-1.1) H Sodium Level 143 MMOL/L (136-145) Potassium Level 4.3 MMOL/L (3.5-5.1) Chloride Level 107 MMOL/L (98-107) Carbon Dioxide Level 27 MMOL/L (21-32) Anion Gap 9 mmol/L (5-15) Blood Urea Nitrogen 30 mg/dL (7-18) H Creatinine 1.1 MG/DL (0.55-1.30) Estimat Glomerular Filtration Rate mL/min (>60) Glucose Level 144 MG/DL (74-106) H Calcium Level 9.8 MG/DL (8.5-10.1) Magnesium Level 1.9 MG/DL (1.8-2.4) Total Bilirubin 0.4 MG/DL (0.2-1.0) Aspartate Amino Transf (AST/SGOT) 36 U/L (15-37) Alanine Aminotransferase (ALT/SGPT) 47 U/L (12-78) Alkaline Phosphatase 109 U/L (46-116) Troponin I 0.036 ng/mL (0.000-0.056) Pro-B-Type Natriuretic Peptide 2690 pg/mL (0-125) H Total Protein 6.8 G/DL (6.4-8.2) Albumin 3.2 G/DL (3.4-5.0) L Globulin 3.6 g/dL Albumin/Globulin Ratio 0.9 (1.0-2.7) L Arterial Blood pH 7.488 (7.350-7.450) Arterial Blood Partial Pressure CO2 39.3 mmHg (35.0-45.0) Arterial Blood Partial Pressure O2 82.6 mmHg (75.0-100.0) Arterial Blood HCO3 29.1 mmol/L (22.0-26.0) H Arterial Blood Oxygen Saturation 97.0 % (95-100) Arterial Blood Base Excess 5.4 (-2-2) H Cruzito Test Positive Microbiology Date/Time Source Procedure Growth Status 03/14/18 19:43 Nasal Nares Influenza Types A,B Antigen (ERENDIRA) - Final Complete Herminio Diallo MD Mar 15, 2018 20:01
[2018-03-15] MEDS ORDERED: Milk of Magnesia 30ml Ud ORAL PRN (21:00)
[2018-03-16] VITALS (17 sets, daily range): BP systolic 101–154; BP diastolic 66–102
[2018-03-16 03:51] LABS: HEMATOCRIT 39.1 % (37.0-47.0); HEMOGLOBIN 13.1 G/DL (12.0-16.0); MEAN CORPUSCULAR VOLUME 92 FL (80-99); PLATELET COUNT 149 K/UL (150-450); RED BLOOD COUNT 4.24 M/UL (4.20-5.40); WHITE BLOOD COUNT 12.5 K/UL (4.8-10.8)
[2018-03-16 04:04] LABS: INR 3.1 (0.9-1.1)
[2018-03-16 04:24] LABS: ANION GAP 7 mmol/L (5-15); BLOOD UREA NITROGEN 35 mg/dL (7-18); CALCIUM 9.2 MG/DL (8.5-10.1); CARBON DIOXIDE 31 MMOL/L (21-32); CHLORIDE 105 MMOL/L (98-107); CREATININE 1.1 MG/DL (0.55-1.30); POTASSIUM 3.8 MMOL/L (3.5-5.1); SODIUM 143 MMOL/L (136-145)
[2018-03-16] MEDS: Solu-MEDROL 40mg Inj IVP SCH ×4 (05:51→18:09)
[2018-03-16] MEDS ORDERED: Lactobacillus-GG tablet ORAL SCH (07:30)
[2018-03-16] MEDS ORDERED: Docusate 100mg cap ORAL SCH (07:30)
[2018-03-16] MEDS ORDERED: Pantoprazole Inj IV SCH (07:30)
[2018-03-16] MEDS ORDERED: Artificial Tears 1.4% Op Soln BOTH EYES SCH (07:30)
[2018-03-16] MEDS: Albuterol/Ipratropium 3ml neb HHN SCH ×4 (08:26→23:09)
[2018-03-16] MEDS: Levodopa/Carbidopa 25/250 tab ORAL SCH ×2 (08:47→13:04)
[2018-03-16] MEDS ORDERED: Ascorbic Acid 500mg tab ORAL SCH (09:30)
[2018-03-16] MEDS ORDERED: Solu-MEDROL 125mg Inj IVP SCH (09:45)
[2018-03-16] MEDS ORDERED: Racemic EPINEPHrine 2.25% 0.5ml HHN SCH (10:00)
--- NOTE | 2018-03-16 10:13 | Pulmonolgy Critical Care Note ---
Critical Care - Asmt/Plan Problems: (1) Bronchospasm (2) Respiratory failure (3) History of pulmonary embolism (4) Chronic diastolic CHF (congestive heart failure) (5) Mild cognitive impairment (6) Dyspnea Assessment/Plan: 88 F h/o PD, dementia, CHF/DD, DVT/PE on A/C, hip Fx B&C resident p/w respiratory distress with bronchospasm and stridor likely 2/2 an aspiration event/pneumonitis with a component of decompensated HF and pulmonary edema. 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 -H/O Hip Fx -PD -Dementia PLAN: -TRANSFER BACK TO ICU -CHANGE BiPAP to / -Monitor gas exchange -Optimize pulmonary hygiene/mobilize as tolerated -RTC and PRN HHN's -SM 60 IV QID -PRN racemic EPI -ENT eval pending -Monitor volumes and renal function, lasix 240 IV x 1 given -NPO until clinical status improved -DVT Px: A/C (Coumadin) -DNAR/DNI D/W daughter and son in law ---> DNAR/DNI BiPAP OK, assess response next 24 hours and decide on further course of care D/W PROJECT DEVELOPER, crisis nurse, DAVID staff, RT CCT 60 min CCT 60 Critical Care - Objective Last 24 Hour Vital Signs Date Time Temp Pulse Resp B/P (MAP) Pulse Ox O2 Delivery O2 Flow Rate FiO2 03/16/18 08:36 84 20 96 Nasal Cannula 3.0 32 03/16/18 08:26 78 20 98 Nasal Cannula 3.0 32 03/16/18 04:00 97.5 69 22 144/84 (104) 100 03/16/18 04:00 77 03/16/18 04:00 Bi-pap 03/16/18 00:00 Bi-pap 03/16/18 00:00 97.5 82 22 132/77 (95) 98 03/16/18 00:00 91 03/15/18 20:15 82 18 100 Nasal Cannula 3.0 32 03/15/18 20:03 84 20 96 Nasal Cannula 3.0 32 03/15/18 20:00 98.5 72 22 112/78 (89) 98 03/15/18 20:00 Bi-pap 03/15/18 20:00 80 03/15/18 16:03 78 18 100 Nasal Cannula 3.0 32 03/15/18 16:00 Bi-pap 03/15/18 16:00 81 03/15/18 16:00 97.7 72 19 154/87 (109) 97 03/15/18 15:53 81 14 100 Nasal Cannula 3.0 32 03/15/18 13:30 173/86 03/15/18 12:00 Bi-pap 03/15/18 12:00 82 03/15/18 12:00 98.8 77 16 160/77 (104) 100 03/15/18 11:30 80 21 100 Nasal Cannula 3.0 32 03/15/18 11:17 72 11 100 Nasal Cannula 3.0 32 03/15/18 11:00 74 16 144/66 (92) 100 Status: obtunded Condition: critical HEENT: atraumatic, normocephalic Neck: other - severe kyphosis Lungs: rhonchi - diffuse, wheezing - EEW with positional stridor Heart: HR/BP stable Abdomen: soft, non-tender, active bowel sounds Extremities: no C/C/E Micro: Microbiology Date/Time Source Procedure Growth Status 03/14/18 19:30 Blood Blood Culture - Preliminary NO GROWTH AFTER 24 HOURS Resulted 03/14/18 19:15 Blood Blood Culture - Preliminary NO GROWTH AFTER 24 HOURS Resulted 03/14/18 19:43 Nasal Nares Influenza Types A,B Antigen (ERENDIRA) - Final Complete Blood Sugars: BS controlled Critical Care - Subjective ROS Limited/Unobtainable: Yes Interval Events: Tx'd to [facility] yesterday, was doing ok earlier this am Daughter was feeding patient, she went into RD I arrived @ bedside patient was being bagged,with difficulty oxygenating She was given an additional SM 60 IV x 1, Lasix 40 IV x 1, DUOneb Tx and racemic epi for audible stridor STAT ABG was ordered ---> 7.012/150/79/37/87 She was placed back on BiPAP, adjusted by myself @ bedside, finally we changed the patients position and saturations improved She is obtunded I had extensive discussions @ the bedside with the patient's daughter Condition: critical IV Access: peripheral EKG Rhythm: Sinus Rhythm FI02: 32 Vent Support Mode: BiLevel Sputum Amount: None Secretions: N/A Fluids: SLIV Drips: N/A I&O: Intake and Output 03/15/18 03/16/18 19:00 07:00 Intake Total 240 ml Output Total 1 ml 650 ml Balance 239 ml -650 ml Intake Oral 240 ml Output Urine Total 1 ml 650 ml # Voids 3 Subjective: RICO Labs: Laboratory Tests Test 03/16/18 02:50 White Blood Count 12.5 K/UL (4.8-10.8) H Red Blood Count 4.24 M/UL (4.20-5.40) Hemoglobin 13.1 G/DL (12.0-16.0) Hematocrit 39.1 % (37.0-47.0) Mean Corpuscular Volume 92 FL (80-99) Mean Corpuscular Hemoglobin 30.9 PG (27.0-31.0) Mean Corpuscular Hemoglobin Concent 33.5 G/DL (32.0-36.0) Red Cell Distribution Width 14.0 % (11.6-14.8) Platelet Count 149 K/UL (150-450) L Mean Platelet Volume 11.3 FL (6.5-10.1) H Neutrophils (%) (Auto) % (45.0-75.0) Lymphocytes (%) (Auto) % (20.0-45.0) Monocytes (%) (Auto) % (1.0-10.0) Eosinophils (%) (Auto) % (0.0-3.0) Basophils (%) (Auto) % (0.0-2.0) Prothrombin Time 31.2 SEC (9.30-11.50) H Prothromb Time International Ratio 3.1 (0.9-1.1) H Sodium Level 143 MMOL/L (136-145) Potassium Level 3.8 MMOL/L (3.5-5.1) Chloride Level 105 MMOL/L (98-107) Carbon Dioxide Level 31 MMOL/L (21-32) Anion Gap 7 mmol/L (5-15) Blood Urea Nitrogen 35 mg/dL (7-18) H Creatinine 1.1 MG/DL (0.55-1.30) Estimat Glomerular Filtration Rate mL/min (>60) Glucose Level 129 MG/DL (74-106) H Calcium Level 9.2 MG/DL (8.5-10.1) Kevyn Caraballo MD Mar 16, 2018 10:13
--- NOTE | 2018-03-16 10:55 | Diagnostic Imaging Report ---
Indication: Dyspnea Comparison: 03/14/2018 A single view chest radiograph was obtained. Findings: There is no change. Lungs are low in volume. Dilated esophagus prominent heart size again noted. IMPRESSION: No change from the previous day
[2018-03-16] MEDS ORDERED: Albuterol/Ipratropium 3ml neb HHN SCH (11:00)
[2018-03-16] MEDS ORDERED: Varibar Pudding 230ml MC PRN (11:15)
[2018-03-16] MEDS ORDERED: Albuterol/Ipratropium 3ml neb HHN PRN (11:19)
[2018-03-16] MEDS ORDERED: Racemic EPINEPHrine 2.25% 0.5ml HHN PRN (11:20)
[2018-03-16] MEDS ORDERED: Varibar Nectar 240ml MC PRN (11:30)
[2018-03-16] MEDS ORDERED: Varibar Honey 250ml MC PRN (11:30)
[2018-03-16] MEDS ORDERED: Piperacillin/Tazobactam 3.375 GM in D5W 110 ML IVPB SCH (12:00)
[2018-03-16] MEDS: Piperacillin/Tazobactam 3.375 GM in D5W 110 ML IVPB SCH ×2 (12:51→20:11)
[2018-03-16] MEDS: Artificial Tears 1.4% Op Soln BOTH EYES SCH ×2 (12:51→16:01)
[2018-03-16] MEDS ORDERED: Miralax 17gm pkt ORAL PRN (13:00)
[2018-03-16] MEDS: Lactobacillus-GG tablet ORAL SCH (13:03)
--- NOTE | 2018-03-16 17:03 | Cardiology Progress Note ---
Assessment/Plan Assessment/Plan 1. Bronchospasm/stridor seemed to have resolved. 2. History of Parkinson's. 3. Hypertension history. 4. Dementia. 5. History of deep venous thrombosis and pulmonary embolism. 6. Osteoporosis. 7. Diastolic dysfunction. 8. Hyperlipidemia. There may be a positional component to her stridor earleir to day had some feed shortly post developped wheezing and whe givne hhn got worse now onbipap in th eicu d/w pulm steroid aspiration precaution ent consultation requested may benefit form laryngoscopy to see if we can identify a cause and treatemtn for her issues seh will be difficutl to image otherwise will nto diurese as will be npo and will nto be eating will check labs Subjective ROS Limited/Unobtainable: Yes Objective Last 24 Hour Vital Signs Date Time Temp Pulse Resp B/P (MAP) Pulse Ox O2 Delivery O2 Flow Rate FiO2 03/16/18 16:00 100 03/16/18 16:00 Bi-pap 16.0 03/16/18 15:58 79 18 100 Bi-pap 100 03/16/18 15:47 78 16 100 Facial 100 03/16/18 15:47 78 16 100 Bi-pap 100 03/16/18 15:00 85 17 105/82 (90) 94 03/16/18 14:00 86 17 116/66 (83) 94 03/16/18 13:13 73 16 100 Facial 100 03/16/18 13:00 97.6 79 12 121/74 (90) 100 03/16/18 12:00 100 03/16/18 12:00 78 03/16/18 12:00 Bi-pap 16.0 03/16/18 12:00 79 12 108/66 (80) 99 03/16/18 11:00 91 15 117/71 (86) 99 03/16/18 10:36 102 17 100 Facial 100 03/16/18 10:28 98 21 100 Bi-pap 100 03/16/18 10:18 120 18 94 Bi-pap 100 03/16/18 10:18 109 25 94 Bi-pap 100 03/16/18 10:00 105 17 84 Bi-pap 100 03/16/18 10:00 120 24 94 Facial 100 03/16/18 10:00 100 03/16/18 10:00 99 17 142/102 (115) 99 03/16/18 08:36 84 20 96 Nasal Cannula 3.0 32 03/16/18 08:26 78 20 98 Nasal Cannula 3.0 32 03/16/18 08:00 97.5 82 1 154/87 (109) 97 03/16/18 08:00 Bi-pap 03/16/18 07:19 81 03/16/18 04:00 97.5 69 22 144/84 (104) 100 03/16/18 04:00 77 03/16/18 04:00 Bi-pap 03/16/18 00:00 Bi-pap 03/16/18 00:00 97.5 82 22 132/77 (95) 98 03/16/18 00:00 91 03/15/18 20:15 82 18 100 Nasal Cannula 3.0 32 03/15/18 20:03 84 20 96 Nasal Cannula 3.0 32 03/15/18 20:00 98.5 72 22 112/78 (89) 98 03/15/18 20:00 Bi-pap 03/15/18 20:00 80 General Appearance: no apparent distress, alert, other - on bipaap Neck: supple Cardiovascular: normal rate Respiratory/Chest: lungs clear, normal breath sounds Abdomen: normal bowel sounds, non tender, soft Extremities: no swelling Intake and Output 03/15/18 03/16/18 19:00 07:00 Intake Total 240 ml 0 ml Output Total 1 ml 650 ml Balance 239 ml -650 ml Intake Oral 240 ml 0 ml Output Urine Total 1 ml 650 ml # Voids 3 Laboratory Tests Test 03/16/18 02:50 03/16/18 09:46 White Blood Count 12.5 K/UL (4.8-10.8) H Red Blood Count 4.24 M/UL (4.20-5.40) Hemoglobin 13.1 G/DL (12.0-16.0) Hematocrit 39.1 % (37.0-47.0) Mean Corpuscular Volume 92 FL (80-99) Mean Corpuscular Hemoglobin 30.9 PG (27.0-31.0) Mean Corpuscular Hemoglobin Concent 33.5 G/DL (32.0-36.0) Red Cell Distribution Width 14.0 % (11.6-14.8) Platelet Count 149 K/UL (150-450) L Mean Platelet Volume 11.3 FL (6.5-10.1) H Neutrophils (%) (Auto) % (45.0-75.0) Lymphocytes (%) (Auto) % (20.0-45.0) Monocytes (%) (Auto) % (1.0-10.0) Eosinophils (%) (Auto) % (0.0-3.0) Basophils (%) (Auto) % (0.0-2.0) Prothrombin Time 31.2 SEC (9.30-11.50) H Prothromb Time International Ratio 3.1 (0.9-1.1) H Sodium Level 143 MMOL/L (136-145) Potassium Level 3.8 MMOL/L (3.5-5.1) Chloride Level 105 MMOL/L (98-107) Carbon Dioxide Level 31 MMOL/L (21-32) Anion Gap 7 mmol/L (5-15) Blood Urea Nitrogen 35 mg/dL (7-18) H Creatinine 1.1 MG/DL (0.55-1.30) Estimat Glomerular Filtration Rate mL/min (>60) Glucose Level 129 MG/DL (74-106) H Calcium Level 9.2 MG/DL (8.5-10.1) Arterial Blood pH 7.012 (7.350-7.450) Arterial Blood Partial Pressure CO2 150.1 mmHg (35.0-45.0) *H Arterial Blood Partial Pressure O2 79.3 mmHg (75.0-100.0) Arterial Blood HCO3 37.2 mmol/L (22.0-26.0) H Arterial Blood Oxygen Saturation 87.9 % (95-100) *L Arterial Blood Base Excess 1.4 (-2-2) Cruzito Test Positive Microbiology Date/Time Source Procedure Growth Status 03/14/18 19:30 Blood Blood Culture - Preliminary NO GROWTH AFTER 24 HOURS Resulted 03/14/18 19:15 Blood Blood Culture - Preliminary NO GROWTH AFTER 24 HOURS Resulted 03/14/18 19:43 Nasal Nares Influenza Types A,B Antigen (ERENDIRA) - Final Complete 03/14/18 20:47 Rectum VRE Culture Pending Resulted 03/14/18 20:47 Rectum - Preliminary Resulted Herminio Diallo MD Mar 16, 2018 17:03
[2018-03-16] MEDS ORDERED: Warfarin Sodium 4mg PO SCH ×2 (20:00)
[2018-03-16] MEDS ORDERED: Milk of Magnesia 30ml Ud ORAL PRN (21:00)
[2018-03-17] VITALS (23 sets, daily range): BP systolic 88–185; BP diastolic 59–97
[2018-03-17] MEDS: Solu-MEDROL 40mg Inj IVP SCH ×4 (01:18→17:26)
[2018-03-17] MEDS: Albuterol/Ipratropium 3ml neb HHN SCH ×6 (03:14→22:51)
[2018-03-17] MEDS: Piperacillin/Tazobactam 3.375 GM in D5W 110 ML IVPB SCH ×3 (03:59→20:00)
[2018-03-17 06:02] LABS: INR 2.8 (0.9-1.1)
[2018-03-17] MEDS: Levodopa/Carbidopa 25/250 tab ORAL SCH ×2 (07:30→12:07)
[2018-03-17] MEDS: Pantoprazole Inj IV SCH (07:30)
[2018-03-17] MEDS ORDERED: Docusate 100mg cap ORAL SCH (07:30)
[2018-03-17] MEDS: Lactobacillus-GG tablet ORAL SCH ×2 (07:30→12:07)
[2018-03-17] MEDS: Artificial Tears 1.4% Op Soln BOTH EYES SCH ×4 (07:30→15:00)
[2018-03-17] MEDS ORDERED: Ascorbic Acid 500mg tab ORAL SCH (09:30)
[2018-03-17] MEDS ORDERED: NS 275ml ONE ×2 (14:11→16:23)
--- NOTE | 2018-03-17 14:31 | Pulmonolgy Critical Care Note ---
Critical Care - Asmt/Plan Problems: (1) Bronchospasm (2) Respiratory failure (3) History of pulmonary embolism (4) Chronic diastolic CHF (congestive heart failure) (5) Mild cognitive impairment (6) Dyspnea Assessment/Plan: 88 F h/o PD, dementia, CHF/DD, DVT/PE on A/C, hip Fx B&C resident p/w respiratory distress with bronchospasm and stridor likely 2/2 an aspiration event/pneumonitis with a component of decompensated HF and pulmonary edema. 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 Diallo CCT 35 min Critical Care - Objective Last 24 Hour Vital Signs Date Time Temp Pulse Resp B/P (MAP) Pulse Ox O2 Delivery O2 Flow Rate FiO2 03/17/18 12:00 2.0 03/17/18 12:00 Bi-pap 16.0 03/17/18 11:27 84 13 97 Room Air 21 03/17/18 11:17 73 17 100 Bi-pap 40 03/17/18 11:16 72 17 100 Facial 40 03/17/18 10:00 73 16 151/71 (97) 99 03/17/18 09:00 76 16 185/75 (111) 99 03/17/18 08:50 100 40 03/17/18 08:40 77 20 100 Facial 50 03/17/18 08:00 Bi-pap 16.0 03/17/18 08:00 97.8 75 16 158/72 (100) 99 03/17/18 08:00 79 03/17/18 08:00 50 03/17/18 07:15 78 16 98 Facial 50 03/17/18 07:13 77 18 99 Bi-pap 50 03/17/18 07:03 73 18 99 Bi-pap 50 03/17/18 07:00 73 16 159/75 (103) 99 03/17/18 06:00 64 16 149/69 (95) 100 03/17/18 05:00 76 16 141/73 (95) 100 03/17/18 04:50 77 18 100 Facial 50 03/17/18 04:00 50 03/17/18 04:00 Bi-pap 16.0 03/17/18 04:00 79 03/17/18 04:00 98.4 77 16 136/74 (94) 100 03/17/18 03:28 79 18 100 Bi-pap 50 03/17/18 03:13 75 16 100 Bi-pap 50 03/17/18 03:12 74 16 100 Facial 50 03/17/18 03:00 78 15 152/97 (115) 100 03/17/18 02:00 76 15 137/78 (97) 100 03/17/18 01:55 76 17 100 Facial 50 03/17/18 01:00 77 14 134/72 (92) 100 03/17/18 00:00 Bi-pap 16.0 03/17/18 00:00 100 03/17/18 00:00 78 03/17/18 00:00 98.6 78 16 137/69 (91) 100 03/16/18 23:22 75 19 100 Bi-pap 60 03/16/18 23:10 73 18 100 Facial 60 03/16/18 23:09 72 19 100 Bi-pap 80 03/16/18 23:00 70 18 113/66 (82) 100 03/16/18 22:00 74 19 101/68 (79) 100 03/16/18 21:43 75 18 100 Facial 80 03/16/18 21:00 90 16 138/81 (100) 100 03/16/18 20:00 72 03/16/18 20:00 100 03/16/18 20:00 Bi-pap 16.0 03/16/18 20:00 98.3 81 17 112/92 (99) 99 03/16/18 19:55 76 21 100 Bi-pap 100 03/16/18 19:53 83 19 97 Facial 100 03/16/18 19:50 82 24 100 Bi-pap 100 03/16/18 19:00 85 16 146/84 (104) 99 03/16/18 18:00 76 17 154/84 (107) 100 03/16/18 17:23 77 21 100 Facial 100 03/16/18 17:00 76 16 147/80 (102) 100 03/16/18 16:00 100 03/16/18 16:00 Bi-pap 16.0 03/16/18 16:00 98.6 79 16 143/72 (95) 100 03/16/18 16:00 79 03/16/18 15:58 79 18 100 Bi-pap 100 03/16/18 15:47 78 16 100 Facial 100 03/16/18 15:47 78 16 100 Bi-pap 100 03/16/18 15:00 85 17 105/82 (90) 94 Status: somnolent Condition: improving HEENT: atraumatic, normocephalic Lungs: rhonchi - distant, wheezing - faint Heart: HR/BP stable Abdomen: soft, non-tender, active bowel sounds Extremities: no C/C/E Micro: Microbiology Date/Time Source Procedure Growth Status 03/14/18 19:30 Blood Blood Culture - Preliminary NO GROWTH AFTER 48 HOURS Resulted 03/14/18 19:15 Blood Blood Culture - Preliminary NO GROWTH AFTER 48 HOURS Resulted 03/14/18 20:47 Nasal Nares MRSA Culture - Final NO METHICILLIN RESISTANT STAPH AUREUS... Complete 03/14/18 19:43 Nasal Nares Influenza Types A,B Antigen (ERENDIRA) - Final Complete 03/14/18 20:47 Rectum VRE Culture - Final NO VANCOMYCIN RESISTANT ENTEROCOCCUS ... Complete 03/14/18 20:47 Rectum - Final NO CARBAPENEM-RESISTANT ENTEROBACTERI... Complete Blood Sugars: BS controlled Critical Care - Subjective ROS Limited/Unobtainable: Yes ICU Day: 2 Interval Events: Off BiPAP this am, gas exchange improved, minimal O2 needs No cough, + wheezing, + SOB Failed CHEMICAL PROCESS EQUIPMENT OPERATOR eval Getting DOBHOFF - unstable for PEG Condition: improving IV Access: peripheral EKG Rhythm: Sinus Rhythm FI02: 21 Vent Support Breath Rate: 16 Vent Support Mode: BiLevel Sputum Amount: None Fluids: SLIV Drips: N/A` I&O: Intake and Output 03/16/18 03/17/18 19:00 07:00 Intake Total 150 ml 220.0 ml Output Total 400 ml 400 ml Balance -250 ml -180.0 ml Intake Oral 150 ml IV Total 220.0 ml Output Urine Total 400 ml 400 ml # Voids 4 Subjective: No distress CXR: unchanged Labs: Laboratory Tests Test 03/17/18 04:00 03/17/18 08:40 Prothrombin Time 27.7 SEC (9.30-11.50) H Prothromb Time International Ratio 2.8 (0.9-1.1) H Arterial Blood pH 7.490 (7.350-7.450) Arterial Blood Partial Pressure CO2 42.5 mmHg (35.0-45.0) Arterial Blood Partial Pressure O2 177.6 mmHg (75.0-100.0) H Arterial Blood HCO3 31.7 mmol/L (22.0-26.0) H Arterial Blood Oxygen Saturation 99.7 % (95-100) Arterial Blood Base Excess 7.6 (-2-2) H Cruz[place] Test Positive Kevyn Caraballo MD Mar 17, 2018 14:31
--- NOTE | 2018-03-17 14:56 | Cardiology Progress Note ---
Assessment/Plan Assessment/Plan 1. Bronchospasm/stridor seemed to have resolved. 2. History of Parkinson's. 3. Hypertension history. 4. Dementia. 5. History of deep venous thrombosis and pulmonary embolism. 6. Osteoporosis. 7. Diastolic dysfunction. 8. Hyperlipidemia. comnmnicated with ent prn bipap d/w pulm steroids aspiration precaution peg planned for tuesday dopoff was planned but with hs of hiatal hernia decision was made to hold off will have ivf lwo dose d/w gi and pulm d/w rn d/w family she looks comfortable at the moment off Coumadin hopefully inr by tuesday will be fien ma y need vit k 2.5mg tuesday if inr is high by then will need anesthesiologist to see her prior to sedation to decided hopefully will have better respiratory statu bu tuesday nicole feel intubation will be necessary for peg placement Subjective Cardiovascular: Denies: chest pain Respiratory: Denies: SOB with excertion Gastrointestinal/Abdominal: Denies: abdominal pain Genitourinary: Denies: burning Objective Last 24 Hour Vital Signs Date Time Temp Pulse Resp B/P (MAP) Pulse Ox O2 Delivery O2 Flow Rate FiO2 03/17/18 14:00 96 16 151/71 (97) 99 03/17/18 13:00 97 19 133/79 (97) 99 03/17/18 12:00 97.6 94 16 155/79 (104) 99 03/17/18 12:00 2.0 03/17/18 12:00 Bi-pap 16.0 03/17/18 11:27 84 13 97 Room Air 21 03/17/18 11:17 73 17 100 Bi-pap 40 03/17/18 11:16 72 17 100 Facial 40 03/17/18 11:00 92 16 145/86 (105) 99 03/17/18 10:00 73 16 151/71 (97) 99 03/17/18 09:00 76 16 185/75 (111) 99 03/17/18 08:50 100 40 03/17/18 08:40 77 20 100 Facial 50 03/17/18 08:00 Bi-pap 16.0 03/17/18 08:00 97.8 75 16 158/72 (100) 99 03/17/18 08:00 79 03/17/18 08:00 50 03/17/18 07:15 78 16 98 Facial 50 03/17/18 07:13 77 18 99 Bi-pap 50 03/17/18 07:03 73 18 99 Bi-pap 50 03/17/18 07:00 73 16 159/75 (103) 99 03/17/18 06:00 64 16 149/69 (95) 100 03/17/18 05:00 76 16 141/73 (95) 100 03/17/18 04:50 77 18 100 Facial 50 03/17/18 04:00 50 03/17/18 04:00 Bi-pap 16.0 03/17/18 04:00 79 03/17/18 04:00 98.4 77 16 136/74 (94) 100 03/17/18 03:28 79 18 100 Bi-pap 50 03/17/18 03:13 75 16 100 Bi-pap 50 03/17/18 03:12 74 16 100 Facial 50 03/17/18 03:00 78 15 152/97 (115) 100 03/17/18 02:00 76 15 137/78 (97) 100 03/17/18 01:55 76 17 100 Facial 50 03/17/18 01:00 77 14 134/72 (92) 100 03/17/18 00:00 Bi-pap 16.0 03/17/18 00:00 100 03/17/18 00:00 78 03/17/18 00:00 98.6 78 16 137/69 (91) 100 03/16/18 23:22 75 19 100 Bi-pap 60 03/16/18 23:10 73 18 100 Facial 60 03/16/18 23:09 72 19 100 Bi-pap 80 03/16/18 23:00 70 18 113/66 (82) 100 03/16/18 22:00 74 19 101/68 (79) 100 03/16/18 21:43 75 18 100 Facial 80 03/16/18 21:00 90 16 138/81 (100) 100 03/16/18 20:00 72 03/16/18 20:00 100 03/16/18 20:00 Bi-pap 16.0 03/16/18 20:00 98.3 81 17 112/92 (99) 99 03/16/18 19:55 76 21 100 Bi-pap 100 03/16/18 19:53 83 19 97 Facial 100 03/16/18 19:50 82 24 100 Bi-pap 100 03/16/18 19:00 85 16 146/84 (104) 99 03/16/18 18:00 76 17 154/84 (107) 100 03/16/18 17:23 77 21 100 Facial 100 03/16/18 17:00 76 16 147/80 (102) 100 03/16/18 16:00 100 03/16/18 16:00 Bi-pap 16.0 03/16/18 16:00 98.6 79 16 143/72 (95) 100 03/16/18 16:00 79 03/16/18 15:58 79 18 100 Bi-pap 100 03/16/18 15:47 78 16 100 Facial 100 03/16/18 15:47 78 16 100 Bi-pap 100 03/16/18 15:00 85 17 105/82 (90) 94 General Appearance: no apparent distress, alert Neck: supple Cardiovascular: regular rhythm Respiratory/Chest: lungs clear Abdomen: normal bowel sounds, non tender, soft Extremities: trace edema Intake and Output 03/16/18 03/17/18 19:00 07:00 Intake Total 150 ml 220.0 ml Output Total 400 ml 400 ml Balance -250 ml -180.0 ml Intake Oral 150 ml IV Total 220.0 ml Output Urine Total 400 ml 400 ml # Voids 4 Laboratory Tests Test 03/17/18 04:00 03/17/18 08:40 Prothrombin Time 27.7 SEC (9.30-11.50) H Prothromb Time International Ratio 2.8 (0.9-1.1) H Arterial Blood pH 7.490 (7.350-7.450) Arterial Blood Partial Pressure CO2 42.5 mmHg (35.0-45.0) Arterial Blood Partial Pressure O2 177.6 mmHg (75.0-100.0) H Arterial Blood HCO3 31.7 mmol/L (22.0-26.0) H Arterial Blood Oxygen Saturation 99.7 % (95-100) Arterial Blood Base Excess 7.6 (-2-2) H Cruzito Test Positive Microbiology Date/Time Source Procedure Growth Status 03/14/18 19:30 Blood Blood Culture - Preliminary NO GROWTH AFTER 48 HOURS Resulted 03/14/18 19:15 Blood Blood Culture - Preliminary NO GROWTH AFTER 48 HOURS Resulted 03/14/18 20:47 Nasal Nares MRSA Culture - Final NO METHICILLIN RESISTANT STAPH AUREUS... Complete 03/14/18 19:43 Nasal Nares Influenza Types A,B Antigen (ERENDIRA) - Final Complete 03/14/18 20:47 Rectum VRE Culture - Final NO VANCOMYCIN RESISTANT ENTEROCOCCUS ... Complete 03/14/18 20:47 Rectum - Final NO CARBAPENEM-RESISTANT ENTEROBACTERI... Complete Herminio Diallo MD Mar 17, 2018 14:56
[2018-03-17] MEDS: D5NS 1,000 ML IV SCH (15:00)
[2018-03-17] MEDS ORDERED: Tubing IV Secondary IV ONE (16:23)
--- NOTE | 2018-03-17 16:25 | GI Initial Consult Note ---
History of Present Illness General Date patient seen: Mar 17, 2018 Time patient seen: 16:19 Reason for Hospitalization: Dyspnea/Respdistress Referring physician: BRIAN Reason for Consultation: Dysphasia Present Illness HPI Patient is an 88-year-old female presented after increased difficulty breathing. Patient had been given breathing treatment at her [id number]. Patient had prior history of Parkinson-like dementia. She had additionally had prior history of DVT as well as pulmonary embolism. Patient was noted to have increased swelling to both legs. She had prior history of pneumonitis and possible aspiration. Patient had been on a primarily pured diet. She had not been having any noted fever.Patient had acute onset of symptoms. Patient was noted to have some increased difficulty with respirations. She was noted to have increased work of breathing and was therefore brought to the hospital. GI consulted for dysphasia, encounter for PEG. ROS limited, the patient was seen in no apparent distress. Per report, patient has not eaten anything in the past 2 days. Her labs were reviewed; hypercoagulation, no noted anemia. No transaminitis. Chest x-ray reviewed; patient noted with a dilated esophagus. Family reports that the patient has a history of hiatal hernia surgery approximately 10 years ago. Unknown history of endoscopic colonoscopy. Home Meds Active Scripts Mirtazapine* (MIRTAZAPINE*) 15 Mg Tablet, 15 MG ORAL BEDTIME, #7 TAB Prov:Herminio Diallo MD 04/14/15 Reported Medications Multivitamins* (MULTIVITAMINS*) 1 Each Tablet, 1 TAB ORAL DAILY, TAB 0 Refills 03/14/18 Ipratropium/Albuterol Sulfate (DuoNeb 0.5-3(2.5)mg/3ml) 3 Ml Ampul.neb, 3 ML HHN Q6HR PRN for Shortness of Breath, EA 03/14/18 Calcium Carbonate (CALCIUM) 500 Mg Tablet, 1000 MG PO BID, TAB 03/14/18 Ascorbic Acid* (VITAMIN C*) 500 Mg Tablet, 500 MG ORAL DAILY, #30 TAB 0 Refills 03/14/18 Amlodipine Besylate* (AMLODIPINE BESYLATE*) 2.5 Mg Tablet, 2.5 MG ORAL DAILY, TAB 03/14/18 Docusate Sodium* (DOCUSATE SODIUM*) 100 Mg Capsule, 200 MG ORAL DAILY, CAP 03/14/18 Lactobacillus Rhamnosus Gg (CULTURELLE) 1 Each Cap.sprink, 1 EACH PO BID, CAP 03/14/18 Ropinirole Hcl* (ROPINIROLE HCL*) 1 Mg Tablet, 1 MG PO BID, TAB 03/14/18 Dextran 70/Hypromellose (ARTIFICIAL TEARS EYE DROPS*) 15 Ml Drops, 1 DROP BOTH EYES QID for dry eye, #15 ML 0 Refills 03/14/18 Carbidopa/Levodopa* (SINEMET 25-250 MG TABLET*) 1 Each Tablet, 1 TAB ORAL BID for Parkinson's dz, TAB 03/14/18 Warfarin Sod* (WARFARIN SOD*) 6 Mg Tablet, 6 MG ORAL DAILY for blood clot, TAB 03/14/18 Ferrous Sulfate (FERROUS SULFATE) 325 Mg Tablet.dr, 325 MG ORAL BID, TAB 0 Refills 06/29/13 Ezetimibe (ZETIA*) 10 Mg Tablet, 10 MG ORAL BEDTIME, TAB 06/29/13 Simvastatin (ZOCOR) 20 Mg Tablet, 20 MG ORAL BEDTIME, TAB 06/29/13 Pantoprazole* (PANTOPRAZOLE*) 40 Mg Tablet.dr, 40 MG ORAL DAILY, TAB 04/19/12 Levothyroxine Sodium* (SYNTHROID*) 112 Mcg Tablet, 112 MCG ORAL DAILY, TAB 04/19/12 Med list reviewed/reconciled: Yes Allergies: Coded Allergies: STRAWBERRY (Verified Allergy, Unknown, Rash, 06/29/13) COPIED FROM UNCODED SECTION VALSARTAN (Verified Allergy, Unknown, 03/09/11) Patient History Limited by: medical condition History Provided By: Family Member, Medical Record PMH Narrative Past Medical History: see triage record Last Menstrual Period: n/a Now: No Reviewed Nursing Documentation: PMH: Agreed; PSxH: Agreed Nursing Documentation-PMH Past Medical History: No History, Except For Hx Cardiac Problems: Yes Hx Hypertension: Yes Hx Cancer: No Hx Gastrointestinal Problems: No Hx Neurological Problems: Yes Hx Dementia: Yes Hx Parkinson's Disease: Yes Hx Memory Loss: Yes Hx Weakness: Yes Social History: Denies: smoking, alcohol use, drug use, other Review of Systems All Other Systems: limited Physical Exam Vital Signs Date Time Temp Pulse Resp B/P (MAP) Pulse Ox O2 Delivery O2 Flow Rate FiO2 03/14/18 19:17 97.5 84 21 169/82 80 Room Air 03/14/18 19:40 100 03/15/18 07:24 15.0 Sp02 EP Interpretation: reviewed, normal Labs Laboratory Tests Test 03/17/18 04:00 03/17/18 08:40 Prothrombin Time 27.7 SEC (9.30-11.50) H Prothromb Time International Ratio 2.8 (0.9-1.1) H Arterial Blood pH 7.490 (7.350-7.450) Arterial Blood Partial Pressure CO2 42.5 mmHg (35.0-45.0) Arterial Blood Partial Pressure O2 177.6 mmHg (75.0-100.0) H Arterial Blood HCO3 31.7 mmol/L (22.0-26.0) H Arterial Blood Oxygen Saturation 99.7 % (95-100) Arterial Blood Base Excess 7.6 (-2-2) H Cruzito Test Positive General Appearance: well appearing, no apparent distress, alert, thin Head: normocephalic EENT: PERRL/EOMI, normal ENT inspection Neck: supple Respiratory: normal breath sounds, no respiratory distress Cardiovascular: normal rate Gastrointestinal: normal inspection, non tender, soft, normal bowel sounds, non -distended Rectal: deferred Genitourinary: no CVA tenderness Musculoskeletal: normal inspection, back normal Neurologic: alert, responsive Skin: normal inspection, normal color, no rash, warm/dry, palpation normal, well hydrated Lymphatic: normal inspection, no adenopathy Current Medications Current Medications Medications (Trade) Dose Ordered Sig/Marcel Route PRN Reason Start Time Stop Time Status Last Admin Dose Admin Albuterol/ Ipratropium (Albuterol/ Ipratropium) 3 ml Q4H PRN N Shortness of Breath 03/16/18 11:19 03/19/18 11:18 Albuterol/ Ipratropium (Albuterol/ Ipratropium) 3 ml Q4HRT HHN 03/16/18 15:00 03/20/18 08:59 03/17/18 15:31 Artificial Tears (Akwa-Tears) 1 drop 0730,1000,1230,1500 BOTH EYES 03/16/18 12:30 04/15/18 07:29 03/17/18 12:30 Barium Sulfate (Varibar Pudding) 230 ml ONCE PRN MC RADIOLOGY 03/16/18 11:15 03/17/18 23:59 Dextrose (Dextrose 50%) 25 ml Q30M PRN IV Hypoglycemia 03/16/18 11:30 04/13/18 12:59 Dextrose (Dextrose 50%) 50 ml Q30M PRN IV Hypoglycemia 03/16/18 11:30 04/13/18 12:59 Dextrose/Sodium Chloride 1,000 ml @ 50 mls/hr Q20H IV 03/17/18 15:00 04/16/18 14:59 Diphenhydramine HCl (Benadryl) 25 mg Q6H PRN ORAL Itching/Pruritis 03/16/18 11:18 04/13/18 11:17 Hydralazine HCl (Apresoline) 5 mg Q4H PRN IV SBP >170 03/16/18 13:00 04/14/18 12:59 Levothyroxine Sodium (Synthroid) 112 mcg DAILY@0630 ORAL 03/17/18 06:30 04/14/18 06:29 Magnesium Hydroxide (Mom) 30 ml HSPRN PRN ORAL Constipation 03/16/18 21:00 04/13/18 20:59 Methylprednisolone Sodium Succinate (Solu-MEDROL) 40 mg BID IVP 03/17/18 18:00 04/13/18 21:59 Ondansetron HCl (Zofran) 4 mg Q6H PRN IVP Nausea & Vomiting 03/16/18 11:20 04/13/18 11:19 Pantoprazole (Protonix) 40 mg DAILY@0730 IV 03/17/18 07:30 04/15/18 07:29 03/17/18 07:30 Piperacillin Sod/ Tazobactam Sod 3.375 gm/Dextrose 110 ml @ 27.5 mls/hr Q8H IVPB 03/16/18 12:00 03/23/18 11:59 03/17/18 12:14 Racepinephrine (S2) 0.5 ml Q4H PRN HHN STRIDOR 03/16/18 11:20 04/14/18 11:19 GI: Plan Problems: (1) Dysphasia (2) Dilatation of esophagus (3) Hiatal hernia (4) Failure to thrive (5) Encounter for PEG (percutaneous endoscopic gastrostomy) (6) Severe malnutrition (7) Dehydration (8) Dyspnea Plan Dobhoff to be placed by . maintain NPO + IVFs plan for PEG this Tuesday. electrolyte correction Correct coags Will follow up with additional recommendations. Discussed with Dr. Horta. Thank you for this patient referral, we will follow. The patient was seen and examined at bedside and all new and available data was reviewed in the patients chart. I agree with the above findings, impression and plan. (Patient seen earlier today. Signature stamp does not reflect patient encounter time.). - MD Del[facility]White [facility] Mar 17, 2018 16:25
--- NOTE | 2018-03-17 23:30 | Operative Note - Dictated ---
DATE OF OPERATION: 03/17/2018 SURGEON: Kyler Siddiqui M.D. OUTER DIAMETER GRINDER TOOL: None. INDICATION FOR SURGERY: The patient with dysphagia, aspiration pneumonia, parkinsonian like syndrome. PREOPERATIVE DIAGNOSIS: The patient with dysphagia, aspiration pneumonia, parkinsonian like syndrome. POSTOPERATIVE DIAGNOSIS: The patient with dysphagia, aspiration pneumonia, parkinsonian like syndrome. FINDINGS: Poor control of secretions. PROCEDURE: Fiberoptic laryngoscopy. TECHNIQUE: The patient was prepped and draped in usual manner. Time-out was performed. Scope was placed through the left nostril, and the patient tolerated this well. We were able to visualize the soft palate and went down to the vocal cord. Sponge and needle count was correct. ESTIMATED BLOOD LOSS: Zero. COMPLICATIONS: None. DRAINS: None. Kyler Siddiqui M.D. DR: Leandra JOB#: [id number] CC: REHANA
--- NOTE | 2018-03-17 23:30 | Consultation ---
DATE OF CONSULTATION: 03/16/2018 NOTE: POOR AUDIO CONSULTING PHYSICIAN: Kyler Siddiqui M.D. REQUESTING PHYSICIAN: Herminio Diallo M.D. 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 She now returns with a similar situation. She has dementia, Parkinsonian like syndrome, and many other medical issues. MEDICATIONS: Reviewed in the chart. PAST MEDICAL HISTORY: PHYSICAL EXAMINATION: GENERAL: The patient is poorly conversive, what was going on although daughter and son-in-law were present the patient. HEENT: Head is normocephalic. Eyes, PERRLA. EOMI. Lips and tongue normal. Nose, very dry mucosa. She did have a BiPAP, which is new. Fiberoptic laryngoscopy is indicated. She had secretions although she is again nothing orally. ASSESSMENT: Dysphagia secondary to Parkinsonian and system. She is at great risk for aspiration pneumonia. I spent about 20 minutes discussing this with the patient's daughter and son-in-law. PLAN: I suggested the patient have a G-tube, otherwise . Thank you very much for asking my opinion in the care and treatment of this patient. Kyler Siddiqui M.D. DR: Leandra JOB#: [id number] CC:
[2018-03-18] VITALS (25 sets, daily range): BP systolic 112–169; BP diastolic 64–112
[2018-03-18] MEDS: Albuterol/Ipratropium 3ml neb HHN SCH ×6 (02:59→23:03)
[2018-03-18] MEDS: Piperacillin/Tazobactam 3.375 GM in D5W 110 ML IVPB SCH ×3 (04:24→20:00)
[2018-03-18 05:30] LABS: HEMATOCRIT 37.6 % (37.0-47.0); MEAN CORPUSCULAR VOLUME 96 FL (80-99); PLATELET COUNT 115 K/UL (150-450); RED CELL DISTRIBUTION WIDTH 14.4 % (11.6-14.8); WHITE BLOOD COUNT 12.4 K/UL (4.8-10.8)
[2018-03-18 05:34] LABS: INR 2.3 (0.9-1.1)
[2018-03-18 05:47] LABS: PHOSPHORUS 3.7 MG/DL (2.5-4.9)
[2018-03-18 05:52] LABS: ALANINE AMINOTRANSFERASE 44 U/L (12-78); ALBUMIN/GLOBULIN RATIO 0.9 (1.0-2.7); ALKALINE PHOSPHATASE 86 U/L (46-116); ANION GAP 5 mmol/L (5-15); ASPARTATE AMINO TRANSFERASE 40 U/L (15-37); BILIRUBIN,TOTAL 0.4 MG/DL (0.2-1.0); BLOOD UREA NITROGEN 42 mg/dL (7-18); CALCIUM 8.8 MG/DL (8.5-10.1); CARBON DIOXIDE 34 MMOL/L (21-32); CHLORIDE 107 MMOL/L (98-107); CREATININE 1.3 MG/DL (0.55-1.30); POTASSIUM 3.8 MMOL/L (3.5-5.1); SODIUM 146 MMOL/L (136-145)
[2018-03-18] MEDS: Artificial Tears 1.4% Op Soln BOTH EYES SCH ×4 (07:30→15:37)
[2018-03-18] MEDS: Pantoprazole Inj IV SCH (08:46)
[2018-03-18] MEDS: Solu-MEDROL 40mg Inj IVP SCH ×2 (08:46→17:30)
[2018-03-18] MEDS: D5NS 1,000 ML IV SCH (11:19)
--- NOTE | 2018-03-18 11:25 | Diagnostic Imaging Report ---
EXAM: XR Abdomen, 1 Views CLINICAL HISTORY: NGT TECHNIQUE: Frontal view of the abdomen/pelvis. COMPARISON: No relevant prior studies available. FINDINGS: Gastrointestinal tract: Hyperdense fecal material in the colon likely from prior study. No dilation. Organs: Calcifications overlying the right kidney likely stones. Bones/joints: Osteopenic. Scoliosis and degenerative changes of the spine. Vasculature: IVC filter. Tubes, lines and devices: NG tube is curled back on itself to the proximal/mid esophagus, pull back all the way and reposition. IMPRESSION: NG tube is curled back on itself to the proximal/mid esophagus, pull back all the way and reposition. [employer] 03/18/18 11:29 Verify Receipt with Nurse Verified receipt with ALIZE Scott in ICU on 03/18 11:28 (-08:00)
--- NOTE | 2018-03-18 16:20 | Diagnostic Imaging Report ---
EXAM: XR Abdomen, 1 Views CLINICAL HISTORY: MALPOSITN TECHNIQUE: Frontal view of the abdomen/pelvis . COMPARISON: KUB 03/18/18 904 FINDINGS: Gastrointestinal tract: There is residual hyperdense colon in the bowel. IVC filter. No dilation. Bones/joints: See below. Tubes, lines and devices: NG tube has been repositioned. The tip is in the region of distal colonic interposition. Somewhat limited due to severe kyphosis and the chin and head overlying the right chest and mediastinum. IMPRESSION: NG tube has been repositioned. The tip is in the region of distal colonic interposition. Somewhat limited due to severe kyphosis and the chin and head overlying the right chest and mediastinum.
--- NOTE | 2018-03-18 16:24 | Cardiology Progress Note ---
Assessment/Plan Problem List: (1) Arthralgia (2) Respiratory failure (3) Failure to thrive (4) Dehydration (5) Chronic diastolic CHF (congestive heart failure) Status: stable, unchanged Status Narrative Pt hemodynamically stable, being treated for pneumonia, ? aspiration. She is cachectic, severely debilitated. Rhythm stable - NSR Does not appear in overt chf Assessment/Plan Continue current meds. NPO/ NGT feeds Plan for PEG noted. Overall prognosis limited. Subjective ROS Limited/Unobtainable: Yes Subjective Cardiology for Dr. Diallo Pt sedated, on nc o2 Objective Last 24 Hour Vital Signs Date Time Temp Pulse Resp B/P (MAP) Pulse Ox O2 Delivery O2 Flow Rate FiO2 03/18/18 15:00 87 15 112/67 (82) 96 03/18/18 14:49 78 12 100 Nasal Cannula 2.0 28 03/18/18 14:42 81 13 99 Nasal Cannula 2.0 28 03/18/18 14:14 55 03/18/18 14:00 85 13 115/74 (88) 96 03/18/18 13:13 94 26 97 Facial 45 03/18/18 13:00 84 13 155/71 (99) 94 03/18/18 12:00 97.8 87 19 168/82 (110) 96 03/18/18 12:00 Nasal Cannula 2.0 03/18/18 12:00 87 03/18/18 12:00 2.0 03/18/18 11:00 85 13 164/83 (110) 100 03/18/18 10:48 83 20 100 Nasal Cannula 2.0 28 03/18/18 10:42 80 24 100 Nasal Cannula 2.0 28 03/18/18 10:15 115 23 95 Facial 45 03/18/18 10:00 86 14 142/78 (99) 99 03/18/18 09:00 86 13 149/74 (99) 99 03/18/18 08:00 Nasal Cannula 2.0 03/18/18 08:00 2.0 03/18/18 08:00 88 03/18/18 08:00 91 19 134/81 (98) 97 03/18/18 07:02 Nasal Cannula 3.0 32 03/18/18 07:02 78 18 100 Nasal Cannula 3.0 32 03/18/18 07:02 100 Nasal Cannula 2.0 28 03/18/18 07:00 98.2 89 14 159/71 (100) 97 03/18/18 06:55 79 16 100 Nasal Cannula 2.0 28 03/18/18 06:00 93 20 162/85 (110) 99 03/18/18 05:00 93 17 146/84 (104) 97 03/18/18 04:47 89 16 97 Facial 40 03/18/18 04:00 2.0 03/18/18 04:00 90 03/18/18 04:00 Nasal Cannula 2.0 03/18/18 04:00 97.7 93 17 150/78 (102) 97 03/18/18 03:09 91 18 100 Nasal Cannula 3.0 32 03/18/18 03:00 84 17 146/64 (91) 94 03/18/18 02:59 86 13 97 Nasal Cannula 2.0 28 03/18/18 02:00 88 17 141/78 (99) 97 03/18/18 02:00 50 03/18/18 01:02 93 15 98 Facial 40 03/18/18 01:01 93 17 115/78 (90) 97 03/18/18 00:00 93 03/18/18 00:00 Nasal Cannula 2.0 03/18/18 00:00 98 17 115/71 (86) 97 03/18/18 00:00 50 03/17/18 23:12 98 16 95 Facial 40 03/17/18 23:02 98 15 98 Nasal Cannula 3.0 32 03/17/18 23:00 96 16 113/74 (87) 97 03/17/18 22:52 95 15 98 Nasal Cannula 2.0 28 03/17/18 22:00 50 03/17/18 22:00 98.5 99 17 95/59 (71) 98 03/17/18 21:09 2.0 03/17/18 21:00 98 17 88/62 (71) 97 03/17/18 20:00 98.4 98 18 99/71 (80) 97 03/17/18 20:00 Nasal Cannula 2.0 03/17/18 20:00 99 03/17/18 19:10 Nasal Cannula 3.0 32 03/17/18 19:09 97 Nasal Cannula 3.0 32 03/17/18 19:00 98 14 128/84 (99) 98 2/8/19 18:58 100 19 97 Nasal Cannula 3.0 32 03/17/18 18:47 100 16 99 Nasal Cannula 2.0 28 03/17/18 18:00 103 16 128/85 (99) 93 03/17/18 17:00 106 16 116/95 (102) 93 General Appearance: cachetic, other - elderly wf , minimally responsive EENT: PERRL/EOMI Neck: no JVD Rhythm: NSR Cardiovascular: regular rhythm, systolic murmur - ii/vi ESTEFANI along LSB Respiratory/Chest: other - bilat scattered rhonchi Abdomen: normal bowel sounds, non tender, soft Extremities: non-tender, no swelling Intake and Output 03/17/18 03/18/18 19:00 07:00 Intake Total 816.5 ml Output Total 500 ml 730 ml Balance -500 ml 86.5 ml IV Total 816.5 ml Output Urine Total 500 ml 730 ml # Voids 4 11 Laboratory Tests Test 03/18/18 04:00 White Blood Count 12.4 K/UL (4.8-10.8) H Red Blood Count 3.90 M/UL (4.20-5.40) L Hemoglobin 12.0 G/DL (12.0-16.0) Hematocrit 37.6 % (37.0-47.0) Mean Corpuscular Volume 96 FL (80-99) Mean Corpuscular Hemoglobin 30.8 PG (27.0-31.0) Mean Corpuscular Hemoglobin Concent 31.9 G/DL (32.0-36.0) L Red Cell Distribution Width 14.4 % (11.6-14.8) Platelet Count 115 K/UL (150-450) L Mean Platelet Volume 12.7 FL (6.5-10.1) H Neutrophils (%) (Auto) % (45.0-75.0) Lymphocytes (%) (Auto) % (20.0-45.0) Monocytes (%) (Auto) % (1.0-10.0) Eosinophils (%) (Auto) % (0.0-3.0) Basophils (%) (Auto) % (0.0-2.0) Differential Total Cells Counted 100 Neutrophils % (Manual) 89 % (45-75) H Lymphocytes % (Manual) 6 % (20-45) L Monocytes % (Manual) 0 % (1-10) L Eosinophils % (Manual) 0 % (0-3) Basophils % (Manual) 0 % (0-2) Band Neutrophils 5 % (0-8) Platelet Estimate Decreased L Platelet Morphology Normal Red Blood Cell Morphology Normal Prothrombin Time 23.3 SEC (9.30-11.50) H Prothromb Time International Ratio 2.3 (0.9-1.1) H Sodium Level 146 MMOL/L (136-145) H Potassium Level 3.8 MMOL/L (3.5-5.1) Chloride Level 107 MMOL/L (98-107) Carbon Dioxide Level 34 MMOL/L (21-32) H Anion Gap 5 mmol/L (5-15) Blood Urea Nitrogen 42 mg/dL (7-18) H Creatinine 1.3 MG/DL (0.55-1.30) Estimat Glomerular Filtration Rate mL/min (>60) Glucose Level 154 MG/DL (74-106) H Calcium Level 8.8 MG/DL (8.5-10.1) Phosphorus Level 3.7 MG/DL (2.5-4.9) Magnesium Level 2.1 MG/DL (1.8-2.4) Total Bilirubin 0.4 MG/DL (0.2-1.0) Aspartate Amino Transf (AST/SGOT) 40 U/L (15-37) H Alanine Aminotransferase (ALT/SGPT) 44 U/L (12-78) Alkaline Phosphatase 86 U/L (46-116) Total Protein 6.5 G/DL (6.4-8.2) Albumin 3.0 G/DL (3.4-5.0) L Globulin 3.5 g/dL Albumin/Globulin Ratio 0.9 (1.0-2.7) Mabel Bryant MD Mar 18, 2018 16:24
--- NOTE | 2018-03-18 19:58 | GI Progress Note ---
Assessment/Plan Problems: (1) Encounter for PEG (percutaneous endoscopic gastrostomy) ICD Codes: Z43.1 - Encounter for attention to gastrostomy SNOMED: 906883268, 106916004 (2) Severe malnutrition ICD Codes: E43 - Unspecified severe protein-calorie malnutrition SNOMED: 92695005 (3) Failure to thrive SNOMED: 12446258 (4) Dysphasia ICD Codes: R47.02 - Dysphasia SNOMED: 86945132 (5) Dehydration ICD Codes: E86.0 - Dehydration SNOMED: 32272807 (6) Hiatal hernia ICD Codes: K44.9 - Diaphragmatic hernia without obstruction or gangrene SNOMED: 48349170 Status: stable Status Narrative Discussed with Dr. Horta. Assessment/Plan Dobbhoff placement failed x2. Maintain NPO + IVFs for scheduled PEG this tuesday. electrolyte correction Correct coags Will follow up with additional recommendations. The patient was seen and examined at bedside and all new and available data was reviewed in the patients chart. I agree with the above findings, impression and plan. (Patient seen earlier today. Signature stamp does not reflect patient encounter time.). - Chuck Horta MD Subjective Gastrointestinal/Abdominal: Reports: no symptoms Subjective limited Objective Last 24 Hour Vital Signs Date Time Temp Pulse Resp B/P (MAP) Pulse Ox O2 Delivery O2 Flow Rate FiO2 03/18/18 19:23 Nasal Cannula 2.0 28 03/18/18 19:23 99 Nasal Cannula 2.0 28 03/18/18 19:08 79 14 96 Nasal Cannula 2.0 28 03/18/18 19:00 78 15 149/74 (99) 97 03/18/18 18:00 75 19 151/77 (101) 99 03/18/18 17:00 79 17 132/70 (90) 97 03/18/18 16:00 Nasal Cannula 2.0 03/18/18 16:00 98.5 84 15 148/78 (101) 95 03/18/18 16:00 85 03/18/18 16:00 2.0 03/18/18 15:00 87 15 112/67 (82) 96 03/18/18 14:49 78 12 100 Nasal Cannula 2.0 28 03/18/18 14:42 81 13 99 Nasal Cannula 2.0 28 03/18/18 14:00 85 13 115/74 (88) 96 03/18/18 13:00 84 13 155/71 (99) 94 03/18/18 12:00 97.8 87 19 168/82 (110) 96 03/18/18 12:00 Nasal Cannula 2.0 03/18/18 12:00 87 03/18/18 12:00 2.0 03/18/18 11:00 85 13 164/83 (110) 100 03/18/18 10:48 83 20 100 Nasal Cannula 2.0 28 03/18/18 10:42 80 24 100 Nasal Cannula 2.0 28 03/18/18 10:00 86 14 142/78 (99) 99 03/18/18 09:00 86 13 149/74 (99) 99 03/18/18 08:00 Nasal Cannula 2.0 03/18/18 08:00 2.0 03/18/18 08:00 88 03/18/18 08:00 91 19 134/81 (98) 97 03/18/18 07:02 Nasal Cannula 3.0 32 03/18/18 07:02 78 18 100 Nasal Cannula 3.0 32 03/18/18 07:02 100 Nasal Cannula 2.0 28 03/18/18 07:00 98.2 89 14 159/71 (100) 97 03/18/18 06:55 79 16 100 Nasal Cannula 2.0 28 03/18/18 06:00 93 20 162/85 (110) 99 03/18/18 05:00 93 17 146/84 (104) 97 03/18/18 04:47 89 16 97 Facial 40 03/18/18 04:00 2.0 03/18/18 04:00 90 03/18/18 04:00 Nasal Cannula 2.0 03/18/18 04:00 97.7 93 17 150/78 (102) 97 03/18/18 03:09 91 18 100 Nasal Cannula 3.0 32 03/18/18 03:00 84 17 146/64 (91) 94 03/18/18 02:59 86 13 97 Nasal Cannula 2.0 28 03/18/18 02:00 88 17 141/78 (99) 97 03/18/18 02:00 50 03/18/18 01:02 93 15 98 Facial 40 03/18/18 01:01 93 17 115/78 (90) 97 03/18/18 00:00 93 03/18/18 00:00 Nasal Cannula 2.0 03/18/18 00:00 98 17 115/71 (86) 97 03/18/18 00:00 50 03/17/18 23:12 98 16 95 Facial 40 03/17/18 23:02 98 15 98 Nasal Cannula 3.0 32 03/17/18 23:00 96 16 113/74 (87) 97 03/17/18 22:52 95 15 98 Nasal Cannula 2.0 28 03/17/18 22:00 50 03/17/18 22:00 98.5 99 17 95/59 (71) 98 03/17/18 21:09 2.0 03/17/18 21:00 98 17 88/62 (71) 97 03/17/18 20:00 98.4 98 18 99/71 (80) 97 03/17/18 20:00 Nasal Cannula 2.0 03/17/18 20:00 99 Intake and Output 03/17/18 03/18/18 19:00 07:00 Intake Total 816.5 ml Output Total 500 ml 730 ml Balance -500 ml 86.5 ml IV Total 816.5 ml Output Urine Total 500 ml 730 ml # Voids 4 11 Laboratory Tests Test 03/18/18 04:00 White Blood Count 12.4 K/UL (4.8-10.8) H Red Blood Count 3.90 M/UL (4.20-5.40) L Hemoglobin 12.0 G/DL (12.0-16.0) Hematocrit 37.6 % (37.0-47.0) Mean Corpuscular Volume 96 FL (80-99) Mean Corpuscular Hemoglobin 30.8 PG (27.0-31.0) Mean Corpuscular Hemoglobin Concent 31.9 G/DL (32.0-36.0) L Red Cell Distribution Width 14.4 % (11.6-14.8) Platelet Count 115 K/UL (150-450) L Mean Platelet Volume 12.7 FL (6.5-10.1) H Neutrophils (%) (Auto) % (45.0-75.0) Lymphocytes (%) (Auto) % (20.0-45.0) Monocytes (%) (Auto) % (1.0-10.0) Eosinophils (%) (Auto) % (0.0-3.0) Basophils (%) (Auto) % (0.0-2.0) Differential Total Cells Counted 100 Neutrophils % (Manual) 89 % (45-75) H Lymphocytes % (Manual) 6 % (20-45) L Monocytes % (Manual) 0 % (1-10) L Eosinophils % (Manual) 0 % (0-3) Basophils % (Manual) 0 % (0-2) Band Neutrophils 5 % (0-8) Platelet Estimate Decreased L Platelet Morphology Normal Red Blood Cell Morphology Normal Prothrombin Time 23.3 SEC (9.30-11.50) H Prothromb Time International Ratio 2.3 (0.9-1.1) H Sodium Level 146 MMOL/L (136-145) H Potassium Level 3.8 MMOL/L (3.5-5.1) Chloride Level 107 MMOL/L (98-107) Carbon Dioxide Level 34 MMOL/L (21-32) H Anion Gap 5 mmol/L (5-15) Blood Urea Nitrogen 42 mg/dL (7-18) H Creatinine 1.3 MG/DL (0.55-1.30) Estimat Glomerular Filtration Rate mL/min (>60) Glucose Level 154 MG/DL (74-106) H Calcium Level 8.8 MG/DL (8.5-10.1) Phosphorus Level 3.7 MG/DL (2.5-4.9) Magnesium Level 2.1 MG/DL (1.8-2.4) Total Bilirubin 0.4 MG/DL (0.2-1.0) Aspartate Amino Transf (AST/SGOT) 40 U/L (15-37) H Alanine Aminotransferase (ALT/SGPT) 44 U/L (12-78) Alkaline Phosphatase 86 U/L (46-116) Total Protein 6.5 G/DL (6.4-8.2) Albumin 3.0 G/DL (3.4-5.0) L Globulin 3.5 g/dL Albumin/Globulin Ratio 0.9 (1.0-2.7) L Height (Feet): 4 Height (Inches): 10.00 Weight (Pounds): 90 General Appearance: WD/WN, no apparent distress, alert, thin Cardiovascular: normal rate Respiratory/Chest: normal breath sounds, no respiratory distress Abdominal Exam: normal bowel sounds, non tender, soft Extremities: non-tender Clifton Brock NP Mar 18, 2018 19:58
--- NOTE | 2018-03-18 21:30 | Pulmonolgy Critical Care Note ---
Critical Care - Asmt/Plan Assessment/Plan: Pulmonary CCM Progress Note Critical Care - Asmt/Plan Problems: (1) Bronchospasm (2) Respiratory failure (3) History of pulmonary embolism (4) Chronic diastolic CHF (congestive heart failure) (5) Mild cognitive impairment (6) Dyspnea Assessment/Plan: 88 F h/o PD, dementia, CHF/DD, DVT/PE on A/C, hip Fx B&C resident p/w respiratory distress with bronchospasm and stridor likely 2/2 an aspiration event/pneumonitis with a component of decompensated HF and pulmonary edema. 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 -H/O Hip Fx -PD -Dementia PLAN: -BiPAP PRN only -Monitor gas exchange -Optimize pulmonary hygiene/mobilize as tolerated -RTC and PRN HHN's -Decrease SM 60 IV BID -PRN racemic EPI -ENT eval pending -Zosyn (D2), F/U Cx's -Monitor volumes and renal function, PRN lasix -NPO, plan for DOBHOFF and NGTF's, possible PEG next week if respiratory status stable, continue SERVICE ATTENDANT therapy -DVT Px: A/C (Coumadin) -DNAR/DNI D/W daughter and son in law ---> DNAR/DNI BiPAP OK, assess response next 24 hours and decide on further course of care 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 Complete 03/14/18 19:43 Nasal Nares Influenza Types A,B Antigen (ERENDIRA) - Final Complete 03/14/18 20:47 Rectum VRE Culture - Final NO VANCOMYCIN RESISTANT ENTEROCOCCUS ... Complete 03/14/18 20:47 Rectum - Final NO CARBAPENEM-RESISTANT ENTEROBACTERI... Complete Blood Sugars: BS controlled Critical Care - Subjective ROS Limited/Unobtainable: Yes ICU Day: 2 Interval Events: Off BiPAP this am, gas exchange improved, minimal O2 needs No cough, + wheezing, + SOB Failed SERVICE ATTENDANT eval Getting DOBHOFF - unstable for PEG Condition: improving IV Access: peripheral EKG Rhythm: Sinus Rhythm FI02: 21 Vent Support Breath Rate: 16 Vent Support Mode: BiLevel Sputum Amount: None Fluids: SLIV Drips: N/A` Subjective: No distress CXR: unchanged Labs: Laboratory Tests Test 03/17/18 04:00 03/17/18 08:40 Prothrombin Time 27.7 SEC (9.30-11.50) H Prothromb Time International Ratio 2.8 (0.9-1.1) H Arterial Blood pH 7.490 (7.350-7.450) Arterial Blood Partial Pressure CO2 42.5 mmHg (35.0-45.0) Arterial Blood Partial Pressure O2 177.6 mmHg (75.0-100.0) H Arterial Blood HCO3 31.7 mmol/L (22.0-26.0) H Arterial Blood Oxygen Saturation 99.7 % (95-100) Arterial Blood Base Excess 7.6 (-2-2) H Cruzito Test Positive Critical Care - Objective Last 24 Hour Vital Signs Date Time Temp Pulse Resp B/P (MAP) Pulse Ox O2 Delivery O2 Flow Rate FiO2 03/18/18 20:16 83 16 99 Facial 40 03/18/18 20:01 83 12 94 Nasal Cannula 2.0 28 03/18/18 20:00 Nasal Cannula 2.0 03/18/18 20:00 98.8 86 15 145/68 (93) 91 03/18/18 19:23 Nasal Cannula 2.0 28 03/18/18 19:23 99 Nasal Cannula 2.0 28 03/18/18 19:08 79 14 96 Nasal Cannula 2.0 28 03/18/18 19:00 78 15 149/74 (99) 97 03/18/18 18:00 75 19 151/77 (101) 99 03/18/18 17:00 79 17 132/70 (90) 97 03/18/18 16:00 Nasal Cannula 2.0 03/18/18 16:00 98.5 84 15 148/78 (101) 95 03/18/18 16:00 85 03/18/18 16:00 2.0 03/18/18 15:00 87 15 112/67 (82) 96 03/18/18 14:49 78 12 100 Nasal Cannula 2.0 28 03/18/18 14:42 81 13 99 Nasal Cannula 2.0 28 03/18/18 14:00 85 13 115/74 (88) 96 03/18/18 13:00 84 13 155/71 (99) 94 03/18/18 12:00 97.8 87 19 168/82 (110) 96 03/18/18 12:00 Nasal Cannula 2.0 03/18/18 12:00 87 03/18/18 12:00 2.0 03/18/18 11:00 85 13 164/83 (110) 100 03/18/18 10:48 83 20 100 Nasal Cannula 2.0 28 03/18/18 10:42 80 24 100 Nasal Cannula 2.0 28 03/18/18 10:00 86 14 142/78 (99) 99 03/18/18 09:00 86 13 149/74 (99) 99 03/18/18 08:00 Nasal Cannula 2.0 03/18/18 08:00 2.0 03/18/18 08:00 88 03/18/18 08:00 91 19 134/81 (98) 97 03/18/18 07:02 Nasal Cannula 3.0 32 03/18/18 07:02 78 18 100 Nasal Cannula 3.0 32 03/18/18 07:02 100 Nasal Cannula 2.0 28 03/18/18 07:00 98.2 89 14 159/71 (100) 97 03/18/18 06:55 79 16 100 Nasal Cannula 2.0 28 03/18/18 06:00 93 20 162/85 (110) 99 03/18/18 05:00 93 17 146/84 (104) 97 03/18/18 04:47 89 16 97 Facial 40 03/18/18 04:00 2.0 03/18/18 04:00 90 03/18/18 04:00 Nasal Cannula 2.0 03/18/18 04:00 97.7 93 17 150/78 (102) 97 2/9/19 03:09 91 18 100 Nasal Cannula 3.0 32 03/18/18 03:00 84 17 146/64 (91) 94 03/18/18 02:59 86 13 97 Nasal Cannula 2.0 28 03/18/18 02:00 88 17 141/78 (99) 97 03/18/18 02:00 50 03/18/18 01:02 93 15 98 Facial 40 03/18/18 01:01 93 17 115/78 (90) 97 03/18/18 00:00 93 03/18/18 00:00 Nasal Cannula 2.0 03/18/18 00:00 98 17 115/71 (86) 97 03/18/18 00:00 50 03/17/18 23:12 98 16 95 Facial 40 03/17/18 23:02 98 15 98 Nasal Cannula 3.0 32 03/17/18 23:00 96 16 113/74 (87) 97 03/17/18 22:52 95 15 98 Nasal Cannula 2.0 28 03/17/18 22:00 50 03/17/18 22:00 98.5 99 17 95/59 (71) 98 Critical Care - Subjective ROS Limited/Unobtainable: No FI02: 40 Vent Support Breath Rate: 16 Vent Support Mode: BiLevel Sputum Amount: None I&O: Intake and Output 03/17/18 03/18/18 19:00 07:00 Intake Total 816.5 ml Output Total 500 ml 730 ml Balance -500 ml 86.5 ml IV Total 816.5 ml Output Urine Total 500 ml 730 ml # Voids 4 11 Nomi Cruz MD Mar 18, 2018 21:30
[2018-03-19] VITALS (25 sets, daily range): BP systolic 102–180; BP diastolic 2–94
[2018-03-19] MEDS: Albuterol/Ipratropium 3ml neb HHN SCH ×6 (03:41→22:37)
[2018-03-19] MEDS: Piperacillin/Tazobactam 3.375 GM in D5W 110 ML IVPB SCH ×3 (04:00→20:00)
[2018-03-19 05:14] LABS: HEMATOCRIT 34.7 % (37.0-47.0); HEMOGLOBIN 11.2 G/DL (12.0-16.0); MEAN CORPUSCULAR VOLUME 95 FL (80-99); PLATELET COUNT 105 K/UL (150-450); RED BLOOD COUNT 3.65 M/UL (4.20-5.40); RED CELL DISTRIBUTION WIDTH 14.1 % (11.6-14.8); WHITE BLOOD COUNT 11.2 K/UL (4.8-10.8)
[2018-03-19 05:18] LABS: INR 1.9 (0.9-1.1)
[2018-03-19 05:22] LABS: ANION GAP 6 mmol/L (5-15); BLOOD UREA NITROGEN 32 mg/dL (7-18); CALCIUM 9.3 MG/DL (8.5-10.1); CARBON DIOXIDE 31 MMOL/L (21-32); CHLORIDE 112 MMOL/L (98-107); POTASSIUM 3.9 MMOL/L (3.5-5.1); SODIUM 149 MMOL/L (136-145)
[2018-03-19] MEDS: D5NS 1,000 ML IV SCH (06:01)
[2018-03-19] MEDS: Artificial Tears 1.4% Op Soln BOTH EYES SCH ×4 (07:30→15:06)
[2018-03-19] MEDS: Solu-MEDROL 40mg Inj IVP SCH ×2 (08:43→17:40)
[2018-03-19] MEDS: Pantoprazole Inj IV SCH (08:43)
--- NOTE | 2018-03-19 14:23 | GI Progress Note ---
Assessment/Plan Problems: (1) Encounter for PEG (percutaneous endoscopic gastrostomy) ICD Codes: Z43.1 - Encounter for attention to gastrostomy SNOMED: 684957118, 489956245 (2) Severe malnutrition ICD Codes: E43 - Unspecified severe protein-calorie malnutrition SNOMED: 06133599 (3) Failure to thrive SNOMED: 29481834 (4) Dysphasia ICD Codes: R47.02 - Dysphasia SNOMED: 00897678 (5) Dehydration ICD Codes: E86.0 - Dehydration SNOMED: 82010700 (6) Hiatal hernia ICD Codes: K44.9 - Diaphragmatic hernia without obstruction or gangrene SNOMED: 03358091 Status: unchanged Status Narrative Discussed with Dr. Horta. Assessment/Plan Dobbhoff placement failed x2. Maintain NPO + IVFs for scheduled PEG this tuesday. electrolyte correction Correct coags Will follow up with additional recommendations. The patient was seen and examined at bedside and all new and available data was reviewed in the patients chart. I agree with the above findings, impression and plan. (Patient seen earlier today. Signature stamp does not reflect patient encounter time.). - Chuck Horta MD Subjective Subjective limited Objective Last 24 Hour Vital Signs Date Time Temp Pulse Resp B/P (MAP) Pulse Ox O2 Delivery O2 Flow Rate FiO2 03/19/18 13:00 86 24 154/78 (103) 97 03/19/18 12:00 81 03/19/18 12:00 Venturi Mask 55.0 03/19/18 12:00 14.0 55 03/19/18 12:00 98.2 86 20 161/73 (102) 95 03/19/18 11:00 83 16 157/58 (91) 96 03/19/18 10:49 84 20 94 Venturi Mask 10.0 45 03/19/18 10:42 82 21 95 Venturi Mask 10.0 45 03/19/18 10:19 173/74 03/19/18 10:00 78 18 173/74 (107) 96 03/19/18 09:00 82 22 160/73 (102) 95 03/19/18 08:00 97.8 81 14 160/65 (96) 94 03/19/18 08:00 78 03/19/18 08:00 4.0 03/19/18 08:00 Nasal Cannula 4.0 03/19/18 07:00 78 14 162/71 (101) 95 03/19/18 06:48 77 14 97 Venturi Mask 10.0 45 03/19/18 06:46 Venturi Mask 10.0 45 03/19/18 06:46 97 Venturi Mask 10.0 45 03/19/18 06:42 77 15 97 Venturi Mask 10.0 45 03/19/18 06:00 78 21 169/94 (119) 97 03/19/18 05:00 75 18 162/85 (110) 98 03/19/18 04:49 78 28 97 Facial 40 03/19/18 04:00 98.1 67 16 153/71 (98) 97 03/19/18 04:00 40 03/19/18 04:00 80 03/19/18 04:00 Bi-pap 03/19/18 03:56 78 16 100 Bi-pap 40 03/19/18 03:43 83 17 97 Facial 40 03/19/18 03:41 83 18 97 Bi-pap 40 03/19/18 03:06 78 17 102/78 (86) 98 03/19/18 02:31 79 16 157/79 (105) 96 03/19/18 02:00 84 17 170/84 (112) 95 03/19/18 01:40 86 25 96 Facial 40 03/19/18 01:18 183/73 03/19/18 01:00 81 18 180/81 (114) 98 03/19/18 00:00 40 03/19/18 00:00 Nasal Cannula 2.0 03/19/18 00:00 98.6 84 23 146/75 (98) 99 03/18/18 23:35 82 16 100 Nasal Cannula 3.0 32 03/18/18 23:04 81 19 96 Nasal Cannula 2.0 28 03/18/18 23:00 77 13 169/77 (107) 96 03/18/18 22:26 80 23 157/93 (114) 87 03/18/18 22:00 82 20 157/82 (107) 97 03/18/18 21:30 79 18 98 Facial 40 03/18/18 21:00 84 21 153/112 (126) 96 03/18/18 21:00 50 03/18/18 20:16 83 16 99 Facial 40 03/18/18 20:01 83 12 94 Nasal Cannula 2.0 28 03/18/18 20:00 Nasal Cannula 2.0 03/18/18 20:00 2.0 03/18/18 20:00 80 03/18/18 20:00 98.8 86 15 145/68 (93) 91 03/18/18 19:23 Nasal Cannula 2.0 28 03/18/18 19:23 99 Nasal Cannula 2.0 28 03/18/18 19:08 79 14 96 Nasal Cannula 2.0 28 03/18/18 19:00 78 15 149/74 (99) 97 03/18/18 18:00 75 19 151/77 (101) 99 03/18/18 17:00 79 17 132/70 (90) 97 03/18/18 16:00 Nasal Cannula 2.0 03/18/18 16:00 98.5 84 15 148/78 (101) 95 03/18/18 16:00 85 03/18/18 16:00 2.0 03/18/18 15:00 87 15 112/67 (82) 96 03/18/18 14:49 78 12 100 Nasal Cannula 2.0 28 03/18/18 14:42 81 13 99 Nasal Cannula 2.0 28 Intake and Output 03/18/18 03/19/18 19:00 07:00 Intake Total 709.0 ml 792.5 ml Output Total 40 ml 300 ml Balance 669.0 ml 492.5 ml IV Total 709.0 ml 792.5 ml Output Urine Total 40 ml 300 ml # Voids 3 Laboratory Tests Test 03/19/18 04:20 03/19/18 07:50 White Blood Count 11.2 K/UL (4.8-10.8) H Red Blood Count 3.65 M/UL (4.20-5.40) L Hemoglobin 11.2 G/DL (12.0-16.0) L Hematocrit 34.7 % (37.0-47.0) L Mean Corpuscular Volume 95 FL (80-99) Mean Corpuscular Hemoglobin 30.6 PG (27.0-31.0) Mean Corpuscular Hemoglobin Concent 32.2 G/DL (32.0-36.0) Red Cell Distribution Width 14.1 % (11.6-14.8) Platelet Count 105 K/UL (150-450) L Mean Platelet Volume 11.6 FL (6.5-10.1) H Neutrophils (%) (Auto) % (45.0-75.0) Lymphocytes (%) (Auto) % (20.0-45.0) Monocytes (%) (Auto) % (1.0-10.0) Eosinophils (%) (Auto) % (0.0-3.0) Basophils (%) (Auto) % (0.0-2.0) Differential Total Cells Counted 100 Neutrophils % (Manual) 89 % (45-75) H Lymphocytes % (Manual) 5 % (20-45) L Monocytes % (Manual) 3 % (1-10) Eosinophils % (Manual) 0 % (0-3) Basophils % (Manual) 0 % (0-2) Band Neutrophils 3 % (0-8) Platelet Estimate Decreased L Platelet Morphology Normal Red Blood Cell Morphology Normal Prothrombin Time 19.4 SEC (9.30-11.50) H Prothromb Time International Ratio 1.9 (0.9-1.1) H Activated Partial Thromboplast Time 32 SEC (23-33) Sodium Level 149 MMOL/L (136-145) H Potassium Level 3.9 MMOL/L (3.5-5.1) Chloride Level 112 MMOL/L (98-107) H Carbon Dioxide Level 31 MMOL/L (21-32) Anion Gap 6 mmol/L (5-15) Blood Urea Nitrogen 32 mg/dL (7-18) H Creatinine 1.0 MG/DL (0.55-1.30) Estimat Glomerular Filtration Rate mL/min (>60) Glucose Level 111 MG/DL (74-106) H Calcium Level 9.3 MG/DL (8.5-10.1) Arterial Blood pH 7.476 (7.350-7.450) Arterial Blood Partial Pressure CO2 44.5 mmHg (35.0-45.0) Arterial Blood Partial Pressure O2 53.2 mmHg (75.0-100.0) L Arterial Blood HCO3 32.1 mmol/L (22.0-26.0) H Arterial Blood Oxygen Saturation 89.0 % (95-100) *L Arterial Blood Base Excess 7.6 (-2-2) H Cruzito Test N/a Height (Feet): 4 Height (Inches): 10.00 Weight (Pounds): 93 General Appearance: WD/WN, no apparent distress, alert Cardiovascular: normal rate Respiratory/Chest: normal breath sounds, no respiratory distress, other - venturi mask Abdominal Exam: normal bowel sounds, non tender, soft Extremities: non-tender Clifton Brock NP Mar 19, 2018 14:23
--- NOTE | 2018-03-19 14:57 | Cardiology Progress Note ---
Assessment/Plan Problem List: (1) Arthralgia (2) Respiratory failure (3) Failure to thrive (4) Dehydration (5) Chronic diastolic CHF (congestive heart failure) Status: stable, progressing Status Narrative Pt hemodynamically stable, being treated for pneumonia, ? aspiration. More alert today, but confused/ disoriented Hypertensive, on iv hydralazine prn, as has no NGT Assessment/Plan Continue current meds, including prn hydralazine for BP Plan for PEG tomorrow noted. Subjective ROS Limited/Unobtainable: Yes Subjective Cardiology for Dr. Diallo Mrs. Benjamin is alert/confused, on fm o2 Objective Last 24 Hour Vital Signs Date Time Temp Pulse Resp B/P (MAP) Pulse Ox O2 Delivery O2 Flow Rate FiO2 03/19/18 14:00 81 15 165/85 (111) 97 03/19/18 13:00 86 24 154/78 (103) 97 03/19/18 12:00 81 03/19/18 12:00 Venturi Mask 55.0 03/19/18 12:00 14.0 55 03/19/18 12:00 98.2 86 20 161/73 (102) 95 03/19/18 11:00 83 16 157/58 (91) 96 03/19/18 10:49 84 20 94 Venturi Mask 10.0 45 03/19/18 10:42 82 21 95 Venturi Mask 10.0 45 03/19/18 10:19 173/74 03/19/18 10:00 78 18 173/74 (107) 96 03/19/18 09:00 82 22 160/73 (102) 95 03/19/18 08:00 97.8 81 14 160/65 (96) 94 03/19/18 08:00 78 03/19/18 08:00 4.0 03/19/18 08:00 Nasal Cannula 4.0 03/19/18 07:00 78 14 162/71 (101) 95 03/19/18 06:48 77 14 97 Venturi Mask 10.0 45 03/19/18 06:46 Venturi Mask 10.0 45 03/19/18 06:46 97 Venturi Mask 10.0 45 03/19/18 06:42 77 15 97 Venturi Mask 10.0 45 03/19/18 06:00 78 21 169/94 (119) 97 03/19/18 05:00 75 18 162/85 (110) 98 03/19/18 04:49 78 28 97 Facial 40 03/19/18 04:00 98.1 67 16 153/71 (98) 97 03/19/18 04:00 40 03/19/18 04:00 80 03/19/18 04:00 Bi-pap 03/19/18 03:56 78 16 100 Bi-pap 40 03/19/18 03:43 83 17 97 Facial 40 03/19/18 03:41 83 18 97 Bi-pap 40 03/19/18 03:06 78 17 102/78 (86) 98 03/19/18 02:31 79 16 157/79 (105) 96 03/19/18 02:00 84 17 170/84 (112) 95 03/19/18 01:40 86 25 96 Facial 40 03/19/18 01:18 183/73 03/19/18 01:00 81 18 180/81 (114) 98 03/19/18 00:00 40 03/19/18 00:00 Nasal Cannula 2.0 03/19/18 00:00 98.6 84 23 146/75 (98) 99 03/18/18 23:35 82 16 100 Nasal Cannula 3.0 32 03/18/18 23:04 81 19 96 Nasal Cannula 2.0 28 03/18/18 23:00 77 13 169/77 (107) 96 03/18/18 22:26 80 23 157/93 (114) 87 03/18/18 22:00 82 20 157/82 (107) 97 03/18/18 21:30 79 18 98 Facial 40 03/18/18 21:00 84 21 153/112 (126) 96 03/18/18 21:00 50 03/18/18 20:16 83 16 99 Facial 40 03/18/18 20:01 83 12 94 Nasal Cannula 2.0 28 03/18/18 20:00 Nasal Cannula 2.0 03/18/18 20:00 2.0 03/18/18 20:00 80 03/18/18 20:00 98.8 86 15 145/68 (93) 91 03/18/18 19:23 Nasal Cannula 2.0 28 03/18/18 19:23 99 Nasal Cannula 2.0 28 03/18/18 19:08 79 14 96 Nasal Cannula 2.0 28 03/18/18 19:00 78 15 149/74 (99) 97 03/18/18 18:00 75 19 151/77 (101) 99 03/18/18 17:00 79 17 132/70 (90) 97 03/18/18 16:00 Nasal Cannula 2.0 03/18/18 16:00 98.5 84 15 148/78 (101) 95 03/18/18 16:00 85 03/18/18 16:00 2.0 03/18/18 15:00 87 15 112/67 (82) 96 General Appearance: WD/WN, no apparent distress, alert EENT: PERRL/EOMI Neck: supple, no JVD Rhythm: NSR Cardiovascular: normal rate, regular rhythm, systolic murmur - i/vi ESTEFANI at apex , radiating to axilla Respiratory/Chest: other - few L base crackles. Limited cooperation w/ deep inspiratory effort Abdomen: non tender, soft Extremities: no swelling Intake and Output 03/18/18 03/19/18 19:00 07:00 Intake Total 709.0 ml 792.5 ml Output Total 40 ml 300 ml Balance 669.0 ml 492.5 ml IV Total 709.0 ml 792.5 ml Output Urine Total 40 ml 300 ml # Voids 3 Laboratory Tests Test 03/19/18 04:20 03/19/18 07:50 White Blood Count 11.2 K/UL (4.8-10.8) H Red Blood Count 3.65 M/UL (4.20-5.40) L Hemoglobin 11.2 G/DL (12.0-16.0) L Hematocrit 34.7 % (37.0-47.0) L Mean Corpuscular Volume 95 FL (80-99) Mean Corpuscular Hemoglobin 30.6 PG (27.0-31.0) Mean Corpuscular Hemoglobin Concent 32.2 G/DL (32.0-36.0) Red Cell Distribution Width 14.1 % (11.6-14.8) Platelet Count 105 K/UL (150-450) L Mean Platelet Volume 11.6 FL (6.5-10.1) H Neutrophils (%) (Auto) % (45.0-75.0) Lymphocytes (%) (Auto) % (20.0-45.0) Monocytes (%) (Auto) % (1.0-10.0) Eosinophils (%) (Auto) % (0.0-3.0) Basophils (%) (Auto) % (0.0-2.0) Differential Total Cells Counted 100 Neutrophils % (Manual) 89 % (45-75) H Lymphocytes % (Manual) 5 % (20-45) L Monocytes % (Manual) 3 % (1-10) Eosinophils % (Manual) 0 % (0-3) Basophils % (Manual) 0 % (0-2) Band Neutrophils 3 % (0-8) Platelet Estimate Decreased L Platelet Morphology Normal Red Blood Cell Morphology Normal Prothrombin Time 19.4 SEC (9.30-11.50) H Prothromb Time International Ratio 1.9 (0.9-1.1) H Activated Partial Thromboplast Time 32 SEC (23-33) Sodium Level 149 MMOL/L (136-145) H Potassium Level 3.9 MMOL/L (3.5-5.1) Chloride Level 112 MMOL/L (98-107) H Carbon Dioxide Level 31 MMOL/L (21-32) Anion Gap 6 mmol/L (5-15) Blood Urea Nitrogen 32 mg/dL (7-18) H Creatinine 1.0 MG/DL (0.55-1.30) Estimat Glomerular Filtration Rate mL/min (>60) Glucose Level 111 MG/DL (74-106) H Calcium Level 9.3 MG/DL (8.5-10.1) Arterial Blood pH 7.476 (7.350-7.450) Arterial Blood Partial Pressure CO2 44.5 mmHg (35.0-45.0) Arterial Blood Partial Pressure O2 53.2 mmHg (75.0-100.0) L Arterial Blood HCO3 32.1 mmol/L (22.0-26.0) H Arterial Blood Oxygen Saturation 89.0 % (95-100) *L Arterial Blood Base Excess 7.6 (-2-2) H Cruzito Test N/a Mabel Johnston MD Mar 19, 2018 14:57
--- NOTE | 2018-03-19 16:08 | Pulmonolgy Critical Care Note ---
Critical Care - Asmt/Plan Assessment/Plan: Pulmonary CCM Progress Note Critical Care - Asmt/Plan Problems: (1) Bronchospasm (2) Respiratory failure (3) History of pulmonary embolism (4) Chronic diastolic CHF (congestive heart failure) (5) Mild cognitive impairment (6) Dyspnea Assessment/Plan: 88 F h/o PD, dementia, CHF/DD, DVT/PE on A/C, hip Fx B&C resident p/w respiratory distress with bronchospasm and stridor likely 2/2 an aspiration event/pneumonitis with a component of decompensated HF and pulmonary edema. 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 -H/O Hip Fx -PD -Dementia PLAN: -BiPAP PRN only -Monitor gas exchange -Optimize pulmonary hygiene/mobilize as tolerated -RTC and PRN HHN's -Decrease SM 60 IV BID -PRN racemic EPI -ENT eval pending -Zosyn (D2), F/U Cx's -Monitor volumes and renal function, PRN lasix -NPO, plan for DOBHOFF and NGTF's, possible PEG next week if respiratory status stable, continue AGRICULTURAL SYSTEMS SPECIALIST therapy -DVT Px: A/C (Coumadin) -DNAR/DNI D/W daughter and son in law ---> DNAR/DNI BiPAP OK, assess response next 24 hours and decide on further course of care D/W INFORMATICS COORDINATOR CCT 35 min Critical Care - Objective Last 24 Hour Vital Signs Noted Status: somnolent Condition: improving HEENT: atraumatic, normocephalic Lungs: rhonchi - distant, wheezing - faint Heart: HR/BP stable Abdomen: soft, non-tender, active bowel sounds Extremities: no C/C/E Micro: Microbiology Date/Time Source Procedure Growth Status 03/14/18 19:30 Blood Blood Culture - Preliminary NO GROWTH AFTER 48 HOURS Resulted 03/14/18 19:15 Blood Blood Culture - Preliminary NO GROWTH AFTER 48 HOURS Resulted 03/14/18 20:47 Nasal Nares MRSA Culture - Final NO METHICILLIN RESISTANT STAPH AUREUS... Complete 03/14/18 19:43 Nasal Nares Influenza Types A,B Antigen (ERENDIRA) - Final Complete 03/14/18 20:47 Rectum VRE Culture - Final NO VANCOMYCIN RESISTANT ENTEROCOCCUS ... Complete 03/14/18 20:47 Rectum - Final NO CARBAPENEM-RESISTANT ENTEROBACTERI... Complete Blood Sugars: BS controlled Critical Care - Subjective ROS Limited/Unobtainable: Yes ICU Day: 2 Interval Events: Off BiPAP this am, gas exchange improved, minimal O2 needs No cough, + wheezing, + SOB Failed AGRICULTURAL SYSTEMS SPECIALIST eval Getting DOBHOFF - unstable for PEG Condition: improving IV Access: peripheral EKG Rhythm: Sinus Rhythm FI02: 21 Vent Support Breath Rate: 16 Vent Support Mode: BiLevel Sputum Amount: None Fluids: SLIV Drips: N/A` Subjective: No distress CXR: unchanged Labs: Laboratory Tests Test 03/17/18 04:00 03/17/18 08:40 Prothrombin Time 27.7 SEC (9.30-11.50) H Prothromb Time International Ratio 2.8 (0.9-1.1) H Arterial Blood pH 7.490 (7.350-7.450) Arterial Blood Partial Pressure CO2 42.5 mmHg (35.0-45.0) Arterial Blood Partial Pressure O2 177.6 mmHg (75.0-100.0) H Arterial Blood HCO3 31.7 mmol/L (22.0-26.0) H Arterial Blood Oxygen Saturation 99.7 % (95-100) Arterial Blood Base Excess 7.6 (-2-2) H Cruzito Test Positive Critical Care - Objective Last 24 Hour Vital Signs Date Time Temp Pulse Resp B/P (MAP) Pulse Ox O2 Delivery O2 Flow Rate FiO2 03/19/18 16:00 Venturi Mask 55.0 03/19/18 15:06 82 24 97 Venturi Mask 10.0 45 03/19/18 15:00 83 15 168/82 (110) 97 03/19/18 15:00 84 20 97 Venturi Mask 10.0 45 03/19/18 14:00 81 15 165/85 (111) 97 03/19/18 13:00 86 24 154/78 (103) 97 03/19/18 12:00 81 03/19/18 12:00 Venturi Mask 55.0 03/19/18 12:00 14.0 55 03/19/18 12:00 98.2 86 20 161/73 (102) 95 03/19/18 11:00 83 16 157/58 (91) 96 03/19/18 10:49 84 20 94 Venturi Mask 10.0 45 03/19/18 10:42 82 21 95 Venturi Mask 10.0 45 03/19/18 10:19 173/74 03/19/18 10:00 78 18 173/74 (107) 96 03/19/18 09:00 82 22 160/73 (102) 95 03/19/18 08:00 97.8 81 14 160/65 (96) 94 03/19/18 08:00 78 03/19/18 08:00 4.0 03/19/18 08:00 Nasal Cannula 4.0 03/19/18 07:00 78 14 162/71 (101) 95 03/19/18 06:48 77 14 97 Venturi Mask 10.0 45 03/19/18 06:46 Venturi Mask 10.0 45 03/19/18 06:46 97 Venturi Mask 10.0 45 03/19/18 06:42 77 15 97 Venturi Mask 10.0 45 03/19/18 06:00 78 21 169/94 (119) 97 03/19/18 05:00 75 18 162/85 (110) 98 03/19/18 04:49 78 28 97 Facial 40 03/19/18 04:00 98.1 67 16 153/71 (98) 97 03/19/18 04:00 40 03/19/18 04:00 80 03/19/18 04:00 Bi-pap 03/19/18 03:56 78 16 100 Bi-pap 40 03/19/18 03:43 83 17 97 Facial 40 03/19/18 03:41 83 18 97 Bi-pap 40 03/19/18 03:06 78 17 102/78 (86) 98 03/19/18 02:31 79 16 157/79 (105) 96 03/19/18 02:00 84 17 170/84 (112) 95 03/19/18 01:40 86 25 96 Facial 40 03/19/18 01:18 183/73 03/19/18 01:00 81 18 180/81 (114) 98 03/19/18 00:00 40 03/19/18 00:00 Nasal Cannula 2.0 03/19/18 00:00 98.6 84 23 146/75 (98) 99 03/18/18 23:35 82 16 100 Nasal Cannula 3.0 32 03/18/18 23:04 81 19 96 Nasal Cannula 2.0 28 03/18/18 23:00 77 13 169/77 (107) 96 03/18/18 22:26 80 23 157/93 (114) 87 03/18/18 22:00 82 20 157/82 (107) 97 03/18/18 21:30 79 18 98 Facial 40 03/18/18 21:00 84 21 153/112 (126) 96 03/18/18 21:00 50 03/18/18 20:16 83 16 99 Facial 40 03/18/18 20:01 83 12 94 Nasal Cannula 2.0 28 03/18/18 20:00 Nasal Cannula 2.0 03/18/18 20:00 2.0 03/18/18 20:00 80 03/18/18 20:00 98.8 86 15 145/68 (93) 91 03/18/18 19:23 Nasal Cannula 2.0 28 03/18/18 19:23 99 Nasal Cannula 2.0 28 03/18/18 19:08 79 14 96 Nasal Cannula 2.0 28 03/18/18 19:00 78 15 149/74 (99) 97 03/18/18 18:00 75 19 151/77 (101) 99 03/18/18 17:00 79 17 132/70 (90) 97 Critical Care - Subjective ROS Limited/Unobtainable: No FI02: 45 Vent Support Breath Rate: 16 Vent Support Mode: BiLevel Sputum Amount: None I&O: Intake and Output 03/18/18 03/19/18 19:00 07:00 Intake Total 709.0 ml 792.5 ml Output Total 40 ml 300 ml Balance 669.0 ml 492.5 ml IV Total 709.0 ml 792.5 ml Output Urine Total 40 ml 300 ml # Voids 3 Nomi Cruz MD Mar 19, 2018 16:08
[2018-03-19] MEDS ORDERED: HALOPERIDOL LACTATE IVPB PRN (22:00)
[2018-03-19] MEDS ORDERED: D5W IVPB PRN (22:00)
[2018-03-20] VITALS (23 sets, daily range): BP systolic 110–168; BP diastolic 38–108
[2018-03-20] MEDS: D5NS 1,000 ML IV SCH (01:48)
[2018-03-20] MEDS: Albuterol/Ipratropium 3ml neb HHN SCH ×6 (02:44→22:53)
[2018-03-20] MEDS: Piperacillin/Tazobactam 3.375 GM in D5W 110 ML IVPB SCH ×3 (04:09→20:21)
[2018-03-20 05:21] LABS: HEMATOCRIT 36.1 % (37.0-47.0); HEMOGLOBIN 11.8 G/DL (12.0-16.0); MEAN CORPUSCULAR VOLUME 94 FL (80-99); PLATELET COUNT 110 K/UL (150-450); RED BLOOD COUNT 3.84 M/UL (4.20-5.40); RED CELL DISTRIBUTION WIDTH 13.9 % (11.6-14.8); WHITE BLOOD COUNT 12.1 K/UL (4.8-10.8)
[2018-03-20 05:38] LABS: INR 1.6 (0.9-1.1)
[2018-03-20 05:57] LABS: ANION GAP 7 mmol/L (5-15); BLOOD UREA NITROGEN 23 mg/dL (7-18); CALCIUM 9.2 MG/DL (8.5-10.1); CARBON DIOXIDE 31 MMOL/L (21-32); CHLORIDE 109 MMOL/L (98-107); CREATININE 0.8 MG/DL (0.55-1.30); POTASSIUM 3.3 MMOL/L (3.5-5.1); SODIUM 147 MMOL/L (136-145)
[2018-03-20] MEDS: Artificial Tears 1.4% Op Soln BOTH EYES SCH ×4 (08:09→15:23)
[2018-03-20] MEDS: Pantoprazole Inj IV SCH (08:09)
[2018-03-20] MEDS: Solu-MEDROL 40mg Inj IVP SCH (09:08)
[2018-03-20] MEDS ORDERED: Lidocaine 1% MPF 10mg/ml 5ml ONE (10:30)
[2018-03-20] MEDS ORDERED: Zemuron 50mg/5ml Inj IV ONE (10:44)
[2018-03-20] MEDS ORDERED: Midazolam 2mg/2ml Inj ONE (10:44)
--- NOTE | 2018-03-20 10:48 | Pre-Procedure Note/Attestation ---
Pre-Procedure Note/Attestation Complete Prior to Procedure Planned Procedure: not applicable Procedure Narrative: egd/peg Indications for Procedure Pre-Operative Diagnosis: dysphagia Attestation I attest that I discussed the nature of the procedure; its benefits; risks and complications; and alternatives (and the risks and benefits of such alternatives ), prior to the procedure, with the patient (or the patient's legal malt liquors sales representative). I attest that, if there was a reasonable possibility of needing a blood transfusion, the patient (or the patient's legal malt liquors sales representative) was given the [facility] standardized written summary, pursuant to the Srikanth Frank Blood Safety Act ([place] Health and Safety Code # 1645, as amended). I attest that I re-evaluated the patient just prior to the surgery and that there has been no change in the patient's H&P, except as documented below: Chuck Horta MD Mar 20, 2018 10:48
[2018-03-20] MEDS ORDERED: NS 500ML IVPB ONE (10:50)
--- NOTE | 2018-03-20 11:00 | Anethesia Preoperative Eval ---
Anesthesia Pre-op PMH/ROS General Date of Evaluation: Mar 20, 2018 Anesthesiologist: Pradeep ASA Score: ASA 4 Mallampati Score Class I : Soft palate, uvula, fauces, pillars visible Class II: Soft palate, uvula, fauces visible Class III: Soft palate, base of uvula visible Class IV: Only hard plate visible Mallampati Classification: Class III Surgeon: Mychal Diagnosis: Failure to thrive Surgical Procedure: EGD and PEG Anesthesia History: none Family History: no anesthesia problems Allergies: Coded Allergies: STRAWBERRY (Verified Allergy, Unknown, Rash, 06/29/13) COPIED FROM UNCODED SECTION VALSARTAN (Verified Allergy, Unknown, 03/09/11) Medications: see eMAR Patient NPO?: Yes NPO Date: Mar 20, 2018 NPO Time: 22:00 Past Medical History Cardiovascular: Reports: HTN, other - CHF; Denies: CAD, MT, valve dz, arrhythmia Pulmonary: Reports: other; Denies: asthma, COPD, [place] Gastrointestinal/Genitourinary: Reports: GERD; Denies: CRI, ESRD, other Neurologic/Psychiatric: Reports: dementia, depression/anxiety, other - parkinsons; Denies: CVA, TIA Endocrine: Reports: hypothyroidism; Denies: DM, steroids, other HEENT: Denies: cataract (L), cataract (R), glaucoma, [place] (L[place] (R), other Hematology/Immune: Reports: anemia - chronic; Denies: DVT, bleeding disorder, other Musculoskeletal/Integumentary: Reports: other - seevre scoliosis and contractures; Denies: OA, RA, DJD, DDD, edema PSxH Narrative: LYUBOV, breast surgery Anesthesia Pre-op Phys. Exam Physician Exam Last Vital Signs Date Time Temp Pulse Resp B/P (MAP) Pulse Ox O2 Delivery O2 Flow Rate FiO2 03/20/18 08:24 78 99 03/20/18 08:23 Venturi Mask 8.0 40 03/20/18 07:26 20 03/20/18 07:00 140/65 (90) 03/20/18 04:00 98.0 Constitutional: NAD Cardiovascular: RRR Respiratory: CTA Airway Exam Mallampati Score: Class III MO: limited ROM: limited Anesthesia Pre-op A/P Labs Hematology Test 03/20/18 04:20 White Blood Count 12.1 K/UL (4.8-10.8) H Red Blood Count 3.84 M/UL (4.20-5.40) L Hemoglobin 11.8 G/DL (12.0-16.0) L Hematocrit 36.1 % (37.0-47.0) L Mean Corpuscular Volume 94 FL (80-99) Mean Corpuscular Hemoglobin 30.7 PG (27.0-31.0) Mean Corpuscular Hemoglobin Concent 32.8 G/DL (32.0-36.0) Red Cell Distribution Width 13.9 % (11.6-14.8) Platelet Count 110 K/UL (150-450) L Mean Platelet Volume 9.0 FL (6.5-10.1) Neutrophils (%) (Auto) % (45.0-75.0) Lymphocytes (%) (Auto) % (20.0-45.0) Monocytes (%) (Auto) % (1.0-10.0) Eosinophils (%) (Auto) % (0.0-3.0) Basophils (%) (Auto) % (0.0-2.0) Coagulation Test 03/20/18 04:20 Prothrombin Time 16.1 SEC (9.30-11.50) H Prothromb Time International Ratio 1.6 (0.9-1.1) H Activated Partial Thromboplast Time 32 SEC (23-33) Chemistry Test 03/20/18 04:20 Sodium Level 147 MMOL/L (136-145) H Potassium Level 3.3 MMOL/L (3.5-5.1) L Chloride Level 109 MMOL/L (98-107) H Carbon Dioxide Level 31 MMOL/L (21-32) Anion Gap 7 mmol/L (5-15) Blood Urea Nitrogen 23 mg/dL (7-18) H Creatinine 0.8 MG/DL (0.55-1.30) Estimat Glomerular Filtration Rate mL/min (>60) Glucose Level 114 MG/DL (74-106) H Calcium Level 9.2 MG/DL (8.5-10.1) Studies Pre-op Studies: EKG - sr Risk Assessment & Plan Assessment: ASA IV Plan: MAC Status Change Before Surgery: No Pre-Antibiotics Drug: Zosyn on floor Given Within 1 Hr of Incision: Yes Mady Johnson MD Mar 20, 2018 10:59
--- NOTE | 2018-03-20 11:18 | Endoscopy Procedure Note ---
Endoscopy Procedure Note General Indication for Procedure: dysphagia Procedures Performed: EGD, PEG Operative Findings/Diagnosis: same Specimen: none Pt Tolerated Procedure Well: Yes Estimated Blood Loss: none Anesthesia Anesthesiologist: malou Anesthesia: MAC Inserted Devices Implant(s) used?: No GI Core Measures 50 yrs or older w/o bx or poly: Not Applicable 10yrs. F/U not recommended: Not Applicable Chuck Horta MD Mar 20, 2018 11:18
--- NOTE | 2018-03-20 11:38 | 48 Hour Post Anesthesia Eval ---
Post Anesthesia Evaluation Procedure: EGd and PEG Date of Evaluation: Mar 20, 2018 Time of Evaluation: 07:00 Blood Pressure Systolic: 125 0: 68 Pulse Rate: 89 Respiratory Rate: 22 O2 Sat by Pulse Oximetry: 96 Airway: patent Nausea: No Vomiting: No Pain Intensity: 0 Hydration Status: adequate Cardiopulmonary Status: at baseline Mental Status/LOC: patient returned to baseline Post-Anesthesia Complications: 0 Follow-up care needed: N/A - further care as per priry team Mady Johnson MD Mar 20, 2018 11:38
--- NOTE | 2018-03-20 11:38 | Immediate Post-Op Evaluation ---
Immediate Post-Op Evalulation Immediate Post-Op Evalulation Procedure: EGd and PEG Date of Evaluation: Mar 20, 2018 Time of Evaluation: 11:33 IV Fluids: 100 Blood Products: 0 Estimated Blood Loss: 0 Urinary Output: 0 Blood Pressure Systolic: 167 Blood Pressure Diastolic: 85 Pulse Rate: 75 Respiratory Rate: 16 O2 Sat by Pulse Oximetry: 99 Temperature (Fahrenheit): 97.3 Pain Score (1-10): 0 Nausea: No Vomiting: No Complications 0 Patient Status: awake, reacts, patent, none Hydration Status: adequate Drug: On zosyn Given Within 1 Hr of Incision: Yes Mady Johnson MD Mar 20, 2018 11:38
--- NOTE | 2018-03-20 12:01 | Pulmonolgy Critical Care Note ---
Critical Care - Asmt/Plan Problems: (1) Bronchospasm (2) Respiratory failure (3) History of pulmonary embolism (4) Chronic diastolic CHF (congestive heart failure) (5) Mild cognitive impairment (6) Dyspnea (7) S/P percutaneous endoscopic gastrostomy (PEG) tube placement Assessment/Plan: 88 F h/o PD, dementia, CHF/DD, DVT/PE on A/C, hip Fx B&C resident p/w respiratory distress with bronchospasm and stridor likely 2/2 an aspiration event/pneumonitis with a component of decompensated HF and pulmonary edema. 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 -H/O Hip Fx -PD -Dementia -Dsyphagia S/P PEG PLAN: -CXR -ABG -BiPAP PRN only -Optimize pulmonary hygiene/mobilize as tolerated -RTC and PRN HHN's -Decrease SM to 30 IV BID -PRN racemic EPI -ENT eval noted -Zosyn (D6), F/U Cx's -Monitor volumes and renal function, PRN lasix - ONCE TF"s started would D/C current IVF -NPO, start NGTF's when stable off BiPAP -DVT Px: resume coumadin -DNAR/DNI D/W daughter D/W [employer] CCT 30 min Critical Care - Objective Last 24 Hour Vital Signs Date Time Temp Pulse Resp B/P (MAP) Pulse Ox O2 Delivery O2 Flow Rate FiO2 03/20/18 11:38 75 16 99 03/20/18 08:24 78 99 03/20/18 08:23 Venturi Mask 8.0 40 03/20/18 08:23 98 Venturi Mask 8.0 40 03/20/18 07:26 78 20 98 Bi-pap 40 03/20/18 07:00 75 18 140/65 (90) 98 03/20/18 06:57 76 21 98 Bi-pap 40 03/20/18 06:55 74 21 98 Facial 03/20/18 06:00 77 18 143/65 (91) 98 03/20/18 05:00 81 18 159/78 (105) 98 03/20/18 04:35 76 18 99 Facial 40 03/20/18 04:00 40 03/20/18 04:00 98.0 81 18 150/68 (95) 98 03/20/18 04:00 Bi-pap 15.0 03/20/18 04:00 76 03/20/18 03:00 81 18 155/65 (95) 98 03/20/18 02:52 83 19 99 Bi-pap 40 03/20/18 02:45 79 18 99 Bi-pap 40 03/20/18 02:00 80 18 165/87 (113) 98 03/20/18 01:05 77 21 98 Facial 40 03/20/18 01:00 78 21 157/76 (103) 98 03/20/18 00:00 77 03/20/18 00:00 40 03/20/18 00:00 Venturi Mask 55.0 03/20/18 00:00 98.3 87 21 168/80 (109) 97 03/19/18 23:00 87 21 170/80 (110) 97 03/19/18 22:53 84 23 100 Facial 40 03/19/18 22:46 78 20 99 Bi-pap 40 03/19/18 22:37 80 20 97 Venturi Mask 10.0 45 03/19/18 22:00 80 17 165/75 (105) 97 03/19/18 21:00 84 16 168/52 (90) 97 03/19/18 20:02 77 20 Venturi Mask 10.0 45 03/19/18 20:00 98.0 84 16 180/85 (116) 97 03/19/18 20:00 83 03/19/18 20:00 40 03/19/18 20:00 Venturi Mask 55.0 03/19/18 19:00 81 16 168/89 (115) 98 03/19/18 18:58 75 20 100 Venturi Mask 10.0 45 03/19/18 18:52 Venturi Mask 10.0 45 03/19/18 18:52 99 Venturi Mask 10.0 45 03/19/18 18:50 78 20 99 Venturi Mask 10.0 45 03/19/18 18:00 79 14 168/77 (107) 98 03/19/18 17:00 83 14 145/78 (100) 97 03/19/18 16:00 90 03/19/18 16:00 14.0 55 03/19/18 16:00 98.3 90 20 146/60 (88) 98 03/19/18 16:00 Venturi Mask 55.0 03/19/18 15:06 82 24 97 Venturi Mask 10.0 45 03/19/18 15:00 83 15 168/82 (110) 97 03/19/18 15:00 84 20 97 Venturi Mask 10.0 45 03/19/18 14:00 81 15 165/85 (111) 97 03/19/18 13:00 86 24 154/78 (103) 97 03/19/18 12:00 81 03/19/18 12:00 Venturi Mask 55.0 03/19/18 12:00 14.0 55 03/19/18 12:00 98.2 86 20 161/73 (102) 95 Status: somnolent Condition: improving HEENT: atraumatic, normocephalic Lungs: clear Heart: HR/BP stable Abdomen: soft, non-tender, active bowel sounds, feeding tube Extremities: no C/C/E Blood Sugars: BS controlled Critical Care - Subjective ROS Limited/Unobtainable: Yes ICU Day: 6 Intubation Day: BiPAP/HF Interval Events: S/P PEG No cough, no wheezing, no secretions Condition: stable IV Access: peripheral EKG Rhythm: Sinus Rhythm FI02: 40 Vent Support Breath Rate: 16 Vent Support Mode: BiLevel Sputum Amount: None Secretions: No sig Fluids: D5NS@50 Drips: None I&O: Intake and Output 03/19/18 03/20/18 18:59 06:59 Intake Total 765.0 ml 600 ml Output Total 650 ml 720 ml Balance 115.0 ml -120 ml IV Total 765.0 ml 600 ml Output Urine Total 650 ml 720 ml Subjective: [place] Labs: Laboratory Tests Test 03/20/18 04:20 White Blood Count 12.1 K/UL (4.8-10.8) H Red Blood Count 3.84 M/UL (4.20-5.40) L Hemoglobin 11.8 G/DL (12.0-16.0) L Hematocrit 36.1 % (37.0-47.0) L Mean Corpuscular Volume 94 FL (80-99) Mean Corpuscular Hemoglobin 30.7 PG (27.0-31.0) Mean Corpuscular Hemoglobin Concent 32.8 G/DL (32.0-36.0) Red Cell Distribution Width 13.9 % (11.6-14.8) Platelet Count 110 K/UL (150-450) L Mean Platelet Volume 9.0 FL (6.5-10.1) Neutrophils (%) (Auto) % (45.0-75.0) Lymphocytes (%) (Auto) % (20.0-45.0) Monocytes (%) (Auto) % (1.0-10.0) Eosinophils (%) (Auto) % (0.0-3.0) Basophils (%) (Auto) % (0.0-2.0) Prothrombin Time 16.1 SEC (9.30-11.50) H Prothromb Time International Ratio 1.6 (0.9-1.1) H Activated Partial Thromboplast Time 32 SEC (23-33) Sodium Level 147 MMOL/L (136-145) H Potassium Level 3.3 MMOL/L (3.5-5.1) L Chloride Level 109 MMOL/L (98-107) H Carbon Dioxide Level 31 MMOL/L (21-32) Anion Gap 7 mmol/L (5-15) Blood Urea Nitrogen 23 mg/dL (7-18) H Creatinine 0.8 MG/DL (0.55-1.30) Estimat Glomerular Filtration Rate mL/min (>60) Glucose Level 114 MG/DL (74-106) H Calcium Level 9.2 MG/DL (8.5-10.1) Kevyn Caraballo MD Mar 20, 2018 12:01
--- NOTE | 2018-03-20 14:45 | Procedure Note ---
DATE OF PROCEDURE: 03/20/2018 SURGEON: Chuck Horta M.D. ANESTHESIA: Per Dr. Fernández. PROCEDURE: Upper endoscopy with PEG placement. INSTRUMENT: Olympus adult flexible upper endoscope. REASON FOR PROCEDURE: The procedure, risks, benefits, and possible consequences, including hemorrhage, aspiration, perforation and infection, and alternative treatments, were explained to the patient/legal guardian by Dr. Chuck Horta and the patient/legal guardian understood and accepted these risks. INDICATION: Dysphagia, failure to thrive. PROCEDURE IN DETAIL: After informed consent was obtained and the patient was adequately sedated, the Olympus upper endoscope was advanced from the mouth into the second portion of the duodenum and retroflexion was performed in the stomach. This is a challenging case. The patient had a large hiatal hernia and also diffuse gastritis. Then, under endoscopic guidance under sterile condition, a 20-Uzbek pull type of G-tube was successfully placed in the epigastric area. The distance from the tip of the tube to skin was about 2 cm in size. The patient tolerated the procedure very well without any complication. SUMMARY OF FINDINGS: 1. Large hiatal hernia. 2. Gastritis. 3. Status post successful PEG placement. RECOMMENDATIONS: Abdominal binder. Elevate head of the bed at all times. G-tube flush. G-tube care. We will start tube feeding later today. The patient currently on antibiotics. We will continue. I want to thank Dr. Diallo for this kind referral. Chuck Horta M.D. DR: JOSE JOB#: [id number] CC: Hreminio Diallo M.D.; Fax#: [phone]
--- NOTE | 2018-03-20 17:24 | Diagnostic Imaging Report ---
Indication: Shortness of breath Technique: One view of the chest Comparison: 03/16/2018 Findings: There appears to be increasing right pleural fluid and right basilar consolidation. Increased consolidation is also seen at the left lung base. The heart is borderline enlarged. Impression: Increasing right-sided pleural effusion and bilateral basilar consolidation, over 4 days
[2018-03-20] MEDS ORDERED: Solu-MEDROL 40mg Inj IVP SCH (18:00)
[2018-03-20] MEDS ORDERED: Warfarin Sodium 5mg ORAL SCH (20:00)
[2018-03-20] MEDS ORDERED: Acetaminophen 650 MG SUPP RECTAL PRN (20:00)
--- NOTE | 2018-03-20 20:10 | Cardiology Progress Note ---
Assessment/Plan Assessment/Plan 1. Bronchospasm/stridor seemed to have resolved. 2. History of Parkinson's. 3. Hypertension history. 4. Dementia. 5. History of deep venous thrombosis and pulmonary embolism. 6. Osteoporosis. 7. Diastolic dysfunction. 8. Hyperlipidemia. s/p peg prn bipap d/w pulm steroids she looks comfortable at the moment resume coumadin resum [employer] meds via gtube feedign tomorrow dc ifvf at that time tomorrow Subjective Cardiovascular: Denies: chest pain, lightheadedness Respiratory: Denies: shortness of breath Objective Last 24 Hour Vital Signs Date Time Temp Pulse Resp B/P (MAP) Pulse Ox O2 Delivery O2 Flow Rate FiO2 03/20/18 19:32 86 21 98 Venturi Mask 8.0 40 03/20/18 19:22 Venturi Mask 8.0 40 03/20/18 19:22 86 24 96 Venturi Mask 8.0 40 03/20/18 19:22 96 Venturi Mask 8.0 40 03/20/18 19:00 87 21 118/38 (64) 94 03/20/18 18:00 87 20 152/93 (112) 95 03/20/18 17:00 88 20 138/84 (102) 95 03/20/18 16:11 90 22 99 Venturi Mask 40 03/20/18 16:00 98.6 90 20 138/84 (102) 97 03/20/18 16:00 88 03/20/18 16:00 12.0 55 03/20/18 16:00 Venturi Mask 10.0 03/20/18 15:39 84 19 100 Venturi Mask 10.0 40 03/20/18 15:00 84 19 149/70 (96) 100 03/20/18 14:00 82 18 150/72 (98) 99 03/20/18 13:00 81 19 159/108 (125) 98 03/20/18 12:00 72 03/20/18 12:00 Bi-pap 15.0 03/20/18 12:00 12.0 55 03/20/18 12:00 97.4 73 19 136/59 (84) 96 03/20/18 11:38 75 16 99 03/20/18 10:00 80 19 160/87 (111) 96 03/20/18 09:00 79 19 160/87 (111) 96 03/20/18 08:24 78 99 03/20/18 08:23 Venturi Mask 8.0 40 03/20/18 08:23 98 Venturi Mask 8.0 40 03/20/18 08:00 98.0 79 18 155/74 (101) 98 03/20/18 08:00 40 03/20/18 08:00 Bi-pap 15.0 03/20/18 08:00 77 03/20/18 07:26 78 20 98 Bi-pap 40 03/20/18 07:00 75 18 140/65 (90) 98 03/20/18 06:57 76 21 98 Bi-pap 40 03/20/18 06:55 74 21 98 Facial 03/20/18 06:00 77 18 143/65 (91) 98 03/20/18 05:00 81 18 159/78 (105) 98 03/20/18 04:35 76 18 99 Facial 40 03/20/18 04:00 40 03/20/18 04:00 98.0 81 18 150/68 (95) 98 03/20/18 04:00 Bi-pap 15.0 03/20/18 04:00 76 03/20/18 03:00 81 18 155/65 (95) 98 03/20/18 02:52 83 19 99 Bi-pap 40 03/20/18 02:45 79 18 99 Bi-pap 40 03/20/18 02:00 80 18 165/87 (113) 98 03/20/18 01:05 77 21 98 Facial 40 03/20/18 01:00 78 21 157/76 (103) 98 03/20/18 00:00 77 03/20/18 00:00 40 03/20/18 00:00 Venturi Mask 55.0 03/20/18 00:00 98.3 87 21 168/80 (109) 97 03/19/18 23:00 87 21 170/80 (110) 97 03/19/18 22:53 84 23 100 Facial 40 03/19/18 22:46 78 20 99 Bi-pap 40 03/19/18 22:37 80 20 97 Venturi Mask 10.0 45 03/19/18 22:00 80 17 165/75 (105) 97 03/19/18 21:00 84 16 168/52 (90) 97 General Appearance: no apparent distress Neck: supple Cardiovascular: regular rhythm Respiratory/Chest: lungs clear Abdomen: normal bowel sounds, non tender, soft, other - peg dressing inpalce Extremities: no swelling Intake and Output 03/19/18 03/20/18 19:00 07:00 Intake Total 737.5 ml 600 ml Output Total 700 ml 670 ml Balance 37.5 ml -70 ml IV Total 737.5 ml 600 ml Output Urine Total 700 ml 670 ml Laboratory Tests Test 03/20/18 04:20 03/20/18 14:20 White Blood Count 12.1 K/UL (4.8-10.8) H Red Blood Count 3.84 M/UL (4.20-5.40) L Hemoglobin 11.8 G/DL (12.0-16.0) L Hematocrit 36.1 % (37.0-47.0) L Mean Corpuscular Volume 94 FL (80-99) Mean Corpuscular Hemoglobin 30.7 PG (27.0-31.0) Mean Corpuscular Hemoglobin Concent 32.8 G/DL (32.0-36.0) Red Cell Distribution Width 13.9 % (11.6-14.8) Platelet Count 110 K/UL (150-450) L Mean Platelet Volume 9.0 FL (6.5-10.1) Neutrophils (%) (Auto) % (45.0-75.0) Lymphocytes (%) (Auto) % (20.0-45.0) Monocytes (%) (Auto) % (1.0-10.0) Eosinophils (%) (Auto) % (0.0-3.0) Basophils (%) (Auto) % (0.0-2.0) Prothrombin Time 16.1 SEC (9.30-11.50) H Prothromb Time International Ratio 1.6 (0.9-1.1) H Activated Partial Thromboplast Time 32 SEC (23-33) Sodium Level 147 MMOL/L (136-145) H Potassium Level 3.3 MMOL/L (3.5-5.1) L Chloride Level 109 MMOL/L (98-107) H Carbon Dioxide Level 31 MMOL/L (21-32) Anion Gap 7 mmol/L (5-15) Blood Urea Nitrogen 23 mg/dL (7-18) H Creatinine 0.8 MG/DL (0.55-1.30) Estimat Glomerular Filtration Rate mL/min (>60) Glucose Level 114 MG/DL (74-106) H Calcium Level 9.2 MG/DL (8.5-10.1) Arterial Blood pH 7.486 (7.350-7.450) Arterial Blood Partial Pressure CO2 41.6 mmHg (35.0-45.0) Arterial Blood Partial Pressure O2 80.1 mmHg (75.0-100.0) Arterial Blood HCO3 30.7 mmol/L (22.0-26.0) H Arterial Blood Oxygen Saturation 97.0 % (95-100) Arterial Blood Base Excess 6.7 (-2-2) H [place] Test Positive Herminio Diallo MD Mar 20, 2018 20:10
[2018-03-20] MEDS ORDERED: Acetaminophen 650mg/20.3ml GT PRN (20:15)
[2018-03-20] MEDS ORDERED: Milk of Magnesia 30ml Ud GT PRN (20:30)
[2018-03-20] MEDS ORDERED: DiphenhydrAMINE 25mg/10ml Elixir GT PRN (20:30)
[2018-03-20] MEDS ORDERED: Artificial Tears 1.4% Op Soln BOTH EYES SCH (21:00)
[2018-03-21] VITALS (9 sets, daily range): BP systolic 104–139; BP diastolic 68–75
[2018-03-21] MEDS ORDERED: D5NS 1,000 ML IV SCH (03:00)
[2018-03-21] MEDS ORDERED: Racemic EPINEPHrine 2.25% 0.5ml HHN PRN (03:30)
[2018-03-21] MEDS ORDERED: D5W IVPB PRN (04:00)
[2018-03-21] MEDS ORDERED: Piperacillin/Tazobactam 3.375 GM in D5W 110 ML IVPB SCH (04:00)
[2018-03-21] MEDS ORDERED: HALOPERIDOL LACTATE IVPB PRN (04:00)
[2018-03-21] MEDS: Albuterol/Ipratropium 3ml neb HHN SCH ×6 (04:17→23:14)
[2018-03-21 05:53] LABS: HEMATOCRIT 35.5 % (37.0-47.0); HEMOGLOBIN 11.5 G/DL (12.0-16.0); MEAN CORPUSCULAR VOLUME 94 FL (80-99); PLATELET COUNT 111 K/UL (150-450); RED BLOOD COUNT 3.75 M/UL (4.20-5.40); RED CELL DISTRIBUTION WIDTH 14.1 % (11.6-14.8); WHITE BLOOD COUNT 12.5 K/UL (4.8-10.8)
[2018-03-21 06:26] LABS: INR 1.6 (0.9-1.1)
[2018-03-21 06:29] LABS: ALANINE AMINOTRANSFERASE 35 U/L (12-78); ALBUMIN 2.4 G/DL (3.4-5.0); ALBUMIN/GLOBULIN RATIO 0.9 (1.0-2.7); ALKALINE PHOSPHATASE 65 U/L (46-116); ANION GAP 8 mmol/L (5-15); ASPARTATE AMINO TRANSFERASE 29 U/L (15-37); BILIRUBIN,TOTAL 0.6 MG/DL (0.2-1.0); BLOOD UREA NITROGEN 28 mg/dL (7-18); CALCIUM 9.2 MG/DL (8.5-10.1); CARBON DIOXIDE 28 MMOL/L (21-32); CHLORIDE 111 MMOL/L (98-107); POTASSIUM 4.2 MMOL/L (3.5-5.1); SODIUM 147 MMOL/L (136-145)
[2018-03-21] MEDS ORDERED: Levodopa/Carbidopa 25/250 tab GT SCH (07:30)
[2018-03-21] MEDS ORDERED: Docusate 100mg/10ml Liq GT SCH (07:30)
[2018-03-21] MEDS: Levodopa/Carbidopa 25/250 tab GT SCH ×2 (07:43→12:51)
[2018-03-21] MEDS: Docusate 100mg/10ml Liq GT SCH (07:43)
[2018-03-21] MEDS: Pantoprazole Inj IV SCH (07:44)
[2018-03-21] MEDS: Artificial Tears 1.4% Op Soln BOTH EYES SCH ×4 (07:47→15:00)
[2018-03-21] MEDS ORDERED: DiphenhydrAMINE 25mg/10ml Elixir GT PRN (08:30)
--- NOTE | 2018-03-21 08:41 | Pulmonology Progress Note ---
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 -H/O Hip Fx -PD -Dementia -Dsyphagia S/P PEG PLAN: -BiPAP PRN only -Titrate down FiO2 to keep SaO2 > 90% -Optimize pulmonary hygiene/mobilize as tolerated -RTC and PRN HHN's -Decrease SM to 20 IV BID -PRN racemic EPI -D/C Zosyn (D7), F/U Cx's -Monitor volumes and renal function, D/C IVF, lasix 20 IV x 1 -GTF's -DVT Px: coumadin -DNAR/DNI D/W daughter D/W RN Subjective Allergies: Coded Allergies: STRAWBERRY (Verified Allergy, Unknown, Rash, 06/29/13) COPIED FROM UNCODED SECTION VALSARTAN (Verified Allergy, Unknown, 03/09/11) Subjective TTF AFVSS on VM TF's started some cough but better no FC Objective Last 24 Hour Vital Signs Date Time Temp Pulse Resp B/P (MAP) Pulse Ox O2 Delivery O2 Flow Rate FiO2 03/21/18 07:06 87 22 99 Venturi Mask 10.0 45 03/21/18 07:05 Venturi Mask 10.0 45 03/21/18 07:05 96 Venturi Mask 10.0 45 03/21/18 07:00 89 22 96 Venturi Mask 10.0 45 03/21/18 05:00 30 03/21/18 04:45 75 25 100 Facial 30 03/21/18 04:31 82 20 98 Venturi Mask 10.0 45 03/21/18 04:17 72 22 95 Venturi Mask 8.0 40 03/21/18 04:00 8.0 40 03/21/18 04:00 98.3 70 24 125/68 (87) 98 03/21/18 04:00 70 03/21/18 04:00 Venturi Mask 8.0 03/21/18 02:30 75 20 118/75 (89) 99 03/21/18 02:00 70 20 120/70 (87) 99 03/21/18 01:00 73 20 112/70 (84) 99 03/21/18 00:55 71 20 100 Facial 30 03/21/18 00:00 85 03/21/18 00:00 8.0 40 03/21/18 00:00 Venturi Mask 10.0 03/21/18 00:00 98.2 77 20 117/70 (86) 99 03/20/18 23:04 81 21 100 Bi-pap 40 03/20/18 23:00 81 20 124/83 (97) 100 03/20/18 22:57 81 22 100 Facial 40 03/20/18 22:53 84 28 99 Bi-pap 40 03/20/18 22:00 86 23 114/63 (80) 96 03/20/18 22:00 8.0 40 03/20/18 21:00 87 23 110/63 (79) 96 03/20/18 20:00 Venturi Mask 10.0 03/20/18 20:00 98.0 92 23 112/61 (78) 95 03/20/18 19:32 86 21 98 Venturi Mask 8.0 40 03/20/18 19:22 Venturi Mask 8.0 40 03/20/18 19:22 86 24 96 Venturi Mask 8.0 40 03/20/18 19:22 96 Venturi Mask 8.0 40 03/20/18 19:00 87 21 118/38 (64) 94 03/20/18 18:00 87 20 152/93 (112) 95 03/20/18 17:00 88 20 138/84 (102) 95 03/20/18 16:11 90 22 99 Venturi Mask 40 03/20/18 16:00 98.6 90 20 138/84 (102) 97 03/20/18 16:00 88 03/20/18 16:00 12.0 55 03/20/18 16:00 Venturi Mask 10.0 03/20/18 15:39 84 19 100 Venturi Mask 10.0 40 03/20/18 15:00 84 19 149/70 (96) 100 03/20/18 14:00 82 18 150/72 (98) 99 03/20/18 13:00 81 19 159/108 (125) 98 03/20/18 12:00 72 03/20/18 12:00 Bi-pap 15.0 03/20/18 12:00 12.0 55 03/20/18 12:00 97.4 73 19 136/59 (84) 96 03/20/18 11:38 75 16 99 03/20/18 10:00 80 19 160/87 (111) 96 03/20/18 09:00 79 19 160/87 (111) 96 Intake and Output 03/20/18 03/21/18 19:00 07:00 Intake Total 580.0 ml 1060.0 ml Output Total 100 ml 381 ml Balance 480.0 ml 679.0 ml Free Water 200 ml IV Total 560.0 ml 640.0 ml Tube Feeding 20 ml 220 ml Output Urine Total 100 ml 381 ml # Voids 2 General Appearance: cachetic HEENT: normocephalic, atraumatic, anicteric, mucous membranes moist Respiratory/Chest: rhonchi Cardiovascular: normal peripheral pulses, normal rate, regular rhythm Abdomen: normal bowel sounds, soft, non tender, no organomegaly, non distended , other - GT Extremities: no cyanosis, no clubbing, no edema Laboratory Tests 03/20/18 14:20: Arterial Blood pH 7.486H, Arterial Blood Partial Pressure CO2 41.6, Arterial Blood Partial Pressure O2 80.1, Arterial Blood HCO3 30.7H, Arterial Blood Oxygen Saturation 97.0, Arterial Blood Base Excess 6.7H, Cruzito Test Positive 03/21/18 05:11: White Blood Count 12.5H, Red Blood Count 3.75L, Hemoglobin 11.5L, Hematocrit 35.5L, Mean Corpuscular Volume 94, Mean Corpuscular Hemoglobin 30.6, Mean Corpuscular Hemoglobin Concent 32.4, Red Cell Distribution Width 14.1, Platelet Count 111L, Mean Platelet Volume 9.7, Neutrophils (%) (Auto) , Lymphocytes (%) ( Auto) , Monocytes (%) (Auto) , Eosinophils (%) (Auto) , Basophils (%) (Auto) , Neutrophils % (Manual) [Pending], Lymphocytes % (Manual) [Pending], Platelet Estimate [Pending], Platelet Morphology [Pending], Prothrombin Time 16.1H, Prothromb Time International Ratio 1.6H, Sodium Level 147H, Potassium Level 4.2 , Chloride Level 111H, Carbon Dioxide Level 28, Anion Gap 8, Blood Urea Nitrogen 28H, Creatinine 1.0, Estimat Glomerular Filtration Rate , Glucose Level 141H, Calcium Level 9.2, Phosphorus Level 2.5, Total Bilirubin 0.6, Aspartate Amino Transf (AST/SGOT) 29, Alanine Aminotransferase (ALT/SGPT) 35, Alkaline Phosphatase 65, Total Protein 5.1L, Albumin 2.4L, Globulin 2.7, Albumin /Globulin Ratio 0.9L Current Medications Medications (Trade) Dose Ordered Sig/Marcel Route PRN Reason Start Time Stop Time Status Last Admin Dose Admin Acetaminophen (Tylenol) 650 mg Q4H PRN GT Mild Pain/Temp > 100.5 03/21/18 04:15 04/19/18 20:14 Albuterol/ Ipratropium (Albuterol/ Ipratropium) 3 ml Q4HRT HHN 03/21/18 03:00 03/25/18 11:29 03/21/18 07:05 Amlodipine Besylate (Norvasc) 2.5 mg DAILY@0930 GT 03/21/18 09:30 04/20/18 09:29 Artificial Tears (Akwa-Tears) 1 drop 0730,1000,1230,1500 BOTH EYES 03/21/18 07:30 04/15/18 07:29 03/21/18 07:47 Ascorbic Acid (Vitamin C) 500 mg DAILY@0930 GT 03/21/18 09:30 04/20/18 09:29 Calcium Carbonate (Os-Wyatt) 2,500 mg BID@0930,1700 GT 03/21/18 09:30 04/20/18 09:29 Carbidopa/Levodopa (Sinemet 25/250) 1 tab BID@0730,1230 GT 03/21/18 07:30 04/20/18 07:29 03/21/18 07:43 Dextrose (Dextrose 50%) 25 ml Q30M PRN IV Hypoglycemia 03/21/18 03:30 04/13/18 12:59 Dextrose (Dextrose 50%) 50 ml Q30M PRN IV Hypoglycemia 03/21/18 03:30 04/13/18 12:59 Dextrose/Sodium Chloride 1,000 ml @ 50 mls/hr Q20H IV 03/21/18 03:00 04/16/18 14:59 03/21/18 03:17 Diphenhydramine HCl (Benadryl) 25 mg Q6H PRN GT Itching 03/21/18 08:30 04/19/18 20:29 Docusate Sodium (Colace) 200 mg DAILY@0730 GT 03/21/18 07:30 04/20/18 07:29 03/21/18 07:43 EZETIMIBE (Zetia) 10 mg DAILY@1700 GT 03/21/18 17:00 04/19/18 20:59 Haloperidol Lactate 0.5 mg/ Dextrose 55.1 ml @ 220.4 mls/ hr Q6H PRN IVPB Agitation 03/21/18 04:00 04/18/18 21:59 Hydralazine HCl (Apresoline) 5 mg Q4H PRN IV SBP >170 03/21/18 05:00 04/14/18 12:59 Levothyroxine Sodium (Synthroid) 112 mcg DAILY@0630 GT 03/21/18 06:30 04/14/18 06:29 03/21/18 06:10 Magnesium Hydroxide (Mom) 30 ml HSPRN PRN GT Constipation 03/21/18 20:30 04/13/18 20:59 Methylprednisolone Sodium Succinate (Solu-MEDROL) 30 mg BID IVP 03/21/18 09:00 04/13/18 21:59 Mirtazapine (Remeron) 15 mg DAILY@1800 GT 03/21/18 18:00 04/19/18 20:59 Multivitamins (Multivitamins W/ Minerals 15ml Liquid) 15 ml DAILY GT 03/21/18 09:00 04/20/18 08:59 Ondansetron HCl (Zofran) 4 mg Q6H PRN IVP Nausea & Vomiting 03/21/18 05:30 04/13/18 11:19 Pantoprazole (Protonix) 40 mg DAILY@0730 IV 03/21/18 07:30 04/15/18 07:29 03/21/18 07:44 Piperacillin Sod/ Tazobactam Sod 3.375 gm/Dextrose 110 ml @ 27.5 mls/hr Q8H IVPB 03/21/18 04:00 03/23/18 11:59 03/21/18 04:09 Racepinephrine (S2) 0.5 ml Q4H PRN HHN STRIDOR 03/21/18 03:30 04/14/18 11:19 Ropinirole HCl (Requip) 1 mg BID@0730,1230 GT 03/21/18 07:30 04/19/18 20:14 03/21/18 07:44 Warfarin Sodium (Coumadin per pharmacy) 1 ea DAILY PRN MISC Per rx protocol 03/21/18 09:00 04/19/18 11:59 Warfarin Sodium (Coumadin) 5 mg ONCE ONCE GT 03/21/18 20:00 03/21/18 20:01 Kevyn Caraballo MD Mar 21, 2018 08:41
[2018-03-21] MEDS ORDERED: Multivitamins W/Minerals 15 ML UDC GT SCH (09:00)
[2018-03-21] MEDS ORDERED: Solu-MEDROL 40mg Inj IVP SCH (09:00)
[2018-03-21] MEDS ORDERED: Ascorbic Acid 500mg tab GT SCH (09:30)
[2018-03-21] MEDS: Multivitamins W/Minerals 15 ML UDC GT SCH (09:42)
[2018-03-21] MEDS: Solu-MEDROL 40mg Inj IVP SCH ×2 (09:42→17:25)
[2018-03-21] MEDS: Ascorbic Acid 500mg tab GT SCH (09:43)
--- NOTE | 2018-03-21 15:47 | GI Progress Note ---
Assessment/Plan Problems: (1) Encounter for PEG (percutaneous endoscopic gastrostomy) ICD Codes: Z43.1 - Encounter for attention to gastrostomy SNOMED: 995207050, 021005252 (2) Severe malnutrition ICD Codes: E43 - Unspecified severe protein-calorie malnutrition SNOMED: 65691250 (3) Failure to thrive SNOMED: 20274305 (4) Dysphasia ICD Codes: R47.02 - Dysphasia SNOMED: 95680202 (5) Dehydration ICD Codes: E86.0 - Dehydration SNOMED: 79713173 (6) Hiatal hernia ICD Codes: K44.9 - Diaphragmatic hernia without obstruction or gangrene SNOMED: 38651842 Status: stable Status Narrative Discussed with Dr. Horta. Assessment/Plan SUMMARY OF FINDINGS: 1. Large hiatal hernia. 2. Gastritis. 3. Status post successful PEG placement. RECOMMENDATIONS: Abdominal binder. Elevate head of the bed at all times. G-tube flush. G-tube care. GTFs per RD to goal abx supportive care The patient was seen and examined at bedside and all new and available data was reviewed in the patients chart. I agree with the above findings, impression and plan. (Patient seen earlier today. Signature stamp does not reflect patient encounter time.). - Chuck Horta MD Subjective Subjective limited Objective Last 24 Hour Vital Signs Date Time Temp Pulse Resp B/P (MAP) Pulse Ox O2 Delivery O2 Flow Rate FiO2 03/21/18 15:22 83 22 99 Venturi Mask 10.0 45 03/21/18 15:14 79 22 98 Venturi Mask 10.0 45 03/21/18 12:00 10.0 45 03/21/18 12:00 Venturi Mask 8.0 03/21/18 12:00 98.2 80 24 123/73 (90) 98 03/21/18 11:09 75 26 99 Venturi Mask 10.0 45 03/21/18 11:00 75 26 99 Venturi Mask 10.0 45 03/21/18 10:00 75 104/68 03/21/18 09:25 89 22 96 03/21/18 08:00 Venturi Mask 8.0 03/21/18 08:00 78 03/21/18 08:00 99.1 79 21 104/68 (80) 93 03/21/18 07:06 87 22 99 Venturi Mask 10.0 45 03/21/18 07:05 Venturi Mask 10.0 45 03/21/18 07:05 96 Venturi Mask 10.0 45 03/21/18 07:00 89 22 96 Venturi Mask 10.0 45 03/21/18 05:00 30 03/21/18 04:45 75 25 100 Facial 30 03/21/18 04:31 82 20 98 Venturi Mask 10.0 45 03/21/18 04:17 72 22 95 Venturi Mask 8.0 40 03/21/18 04:00 8.0 40 03/21/18 04:00 98.3 70 24 125/68 (87) 98 03/21/18 04:00 70 03/21/18 04:00 Venturi Mask 8.0 03/21/18 02:30 75 20 118/75 (89) 99 03/21/18 02:00 70 20 120/70 (87) 99 03/21/18 01:00 73 20 112/70 (84) 99 03/21/18 00:55 71 20 100 Facial 30 03/21/18 00:00 85 03/21/18 00:00 8.0 40 03/21/18 00:00 Venturi Mask 10.0 03/21/18 00:00 98.2 77 20 117/70 (86) 99 03/20/18 23:04 81 21 100 Bi-pap 40 03/20/18 23:00 81 20 124/83 (97) 100 03/20/18 22:57 81 22 100 Facial 40 03/20/18 22:53 84 28 99 Bi-pap 40 03/20/18 22:00 86 23 114/63 (80) 96 03/20/18 22:00 8.0 40 03/20/18 21:00 87 23 110/63 (79) 96 03/20/18 20:00 Venturi Mask 10.0 03/20/18 20:00 98.0 92 23 112/61 (78) 95 03/20/18 19:32 86 21 98 Venturi Mask 8.0 40 03/20/18 19:22 Venturi Mask 8.0 40 03/20/18 19:22 86 24 96 Venturi Mask 8.0 40 03/20/18 19:22 96 Venturi Mask 8.0 40 03/20/18 19:00 87 21 118/38 (64) 94 03/20/18 18:00 87 20 152/93 (112) 95 03/20/18 17:00 88 20 138/84 (102) 95 03/20/18 16:11 90 22 99 Venturi Mask 40 03/20/18 16:00 98.6 90 20 138/84 (102) 97 03/20/18 16:00 88 03/20/18 16:00 12.0 55 03/20/18 16:00 Venturi Mask 10.0 Intake and Output 03/20/18 03/21/18 18:59 06:59 Intake Total 542.5 ml 1097.5 ml Output Total 100 ml 381 ml Balance 442.5 ml 716.5 ml Free Water 200 ml IV Total 532.5 ml 667.5 ml Tube Feeding 10 ml 230 ml Output Urine Total 100 ml 381 ml # Voids 2 Laboratory Tests Test 03/21/18 05:11 White Blood Count 12.5 K/UL (4.8-10.8) H Red Blood Count 3.75 M/UL (4.20-5.40) L Hemoglobin 11.5 G/DL (12.0-16.0) L Hematocrit 35.5 % (37.0-47.0) L Mean Corpuscular Volume 94 FL (80-99) Mean Corpuscular Hemoglobin 30.6 PG (27.0-31.0) Mean Corpuscular Hemoglobin Concent 32.4 G/DL (32.0-36.0) Red Cell Distribution Width 14.1 % (11.6-14.8) Platelet Count 111 K/UL (150-450) L Mean Platelet Volume 9.7 FL (6.5-10.1) Neutrophils (%) (Auto) % (45.0-75.0) Lymphocytes (%) (Auto) % (20.0-45.0) Monocytes (%) (Auto) % (1.0-10.0) Eosinophils (%) (Auto) % (0.0-3.0) Basophils (%) (Auto) % (0.0-2.0) Differential Total Cells Counted 100 Neutrophils % (Manual) 86 % (45-75) H Lymphocytes % (Manual) 3 % (20-45) L Monocytes % (Manual) 2 % (1-10) Eosinophils % (Manual) 0 % (0-3) Basophils % (Manual) 0 % (0-2) Band Neutrophils 9 % (0-8) H Platelet Estimate Decreased L Platelet Morphology Normal Red Blood Cell Morphology Normal Prothrombin Time 16.1 SEC (9.30-11.50) H Prothromb Time International Ratio 1.6 (0.9-1.1) H Sodium Level 147 MMOL/L (136-145) H Potassium Level 4.2 MMOL/L (3.5-5.1) Chloride Level 111 MMOL/L (98-107) H Carbon Dioxide Level 28 MMOL/L (21-32) Anion Gap 8 mmol/L (5-15) Blood Urea Nitrogen 28 mg/dL (7-18) H Creatinine 1.0 MG/DL (0.55-1.30) Estimat Glomerular Filtration Rate mL/min (>60) Glucose Level 141 MG/DL (74-106) H Calcium Level 9.2 MG/DL (8.5-10.1) Phosphorus Level 2.5 MG/DL (2.5-4.9) Total Bilirubin 0.6 MG/DL (0.2-1.0) Aspartate Amino Transf (AST/SGOT) 29 U/L (15-37) Alanine Aminotransferase (ALT/SGPT) 35 U/L (12-78) Alkaline Phosphatase 65 U/L (46-116) Total Protein 5.1 G/DL (6.4-8.2) L Albumin 2.4 G/DL (3.4-5.0) L Globulin 2.7 g/dL Albumin/Globulin Ratio 0.9 (1.0-2.7) L Height (Feet): 4 Height (Inches): 4.00 Weight (Pounds): 94 General Appearance: WD/WN, no apparent distress, alert Cardiovascular: normal rate Respiratory/Chest: normal breath sounds, no respiratory distress, other - venturi mask Abdominal Exam: normal bowel sounds, non tender, soft, GT site Extremities: non-tender Clifton Brock NP Mar 21, 2018 15:47
[2018-03-21] MEDS ORDERED: Warfarin Sodium 5mg GT ONE (20:00)
--- NOTE | 2018-03-21 20:21 | Cardiology Progress Note ---
Assessment/Plan Assessment/Plan 1. Bronchospasm/stridor seemed to have resolved. 2. History of Parkinson's. 3. Hypertension history. 4. Dementia. 5. History of deep venous thrombosis and pulmonary embolism. 6. Osteoporosis. 7. Diastolic dysfunction. 8. Hyperlipidemia. s/p peg prn bipap d/w pulm steroids she looks comfortable at the moment on coumadin resum [employer] meds via gtube feedign dc ivf bp look stable labs are ok Subjective ROS Limited/Unobtainable: Yes Objective Last 24 Hour Vital Signs Date Time Temp Pulse Resp B/P (MAP) Pulse Ox O2 Delivery O2 Flow Rate FiO2 03/21/18 17:38 88 24 95 Facial 30 03/21/18 16:00 Venturi Mask 10.0 03/21/18 16:00 84 03/21/18 16:00 98.1 83 23 127/72 (90) 95 03/21/18 16:00 10.0 45 03/21/18 15:22 83 22 99 Venturi Mask 10.0 45 03/21/18 15:14 79 22 98 Venturi Mask 10.0 45 03/21/18 12:00 10.0 45 03/21/18 12:00 Venturi Mask 8.0 03/21/18 12:00 98.2 80 24 123/73 (90) 98 03/21/18 11:52 85 03/21/18 11:09 75 26 99 Venturi Mask 10.0 45 03/21/18 11:00 75 26 99 Venturi Mask 10.0 45 03/21/18 10:00 75 104/68 03/21/18 09:25 89 22 96 03/21/18 08:00 Venturi Mask 8.0 03/21/18 08:00 78 03/21/18 08:00 99.1 79 21 104/68 (80) 93 03/21/18 07:06 87 22 99 Venturi Mask 10.0 45 03/21/18 07:05 Venturi Mask 10.0 45 03/21/18 07:05 96 Venturi Mask 10.0 45 03/21/18 07:00 89 22 96 Venturi Mask 10.0 45 03/21/18 05:00 30 03/21/18 04:45 75 25 100 Facial 30 03/21/18 04:31 82 20 98 Venturi Mask 10.0 45 03/21/18 04:17 72 22 95 Venturi Mask 8.0 40 03/21/18 04:00 8.0 40 03/21/18 04:00 98.3 70 24 125/68 (87) 98 03/21/18 04:00 70 03/21/18 04:00 Venturi Mask 8.0 03/21/18 02:30 75 20 118/75 (89) 99 03/21/18 02:00 70 20 120/70 (87) 99 03/21/18 01:00 73 20 112/70 (84) 99 03/21/18 00:55 71 20 100 Facial 30 03/21/18 00:00 85 03/21/18 00:00 8.0 40 03/21/18 00:00 Venturi Mask 10.0 03/21/18 00:00 98.2 77 20 117/70 (86) 99 03/20/18 23:04 81 21 100 Bi-pap 40 03/20/18 23:00 81 20 124/83 (97) 100 03/20/18 22:57 81 22 100 Facial 40 03/20/18 22:53 84 28 99 Bi-pap 40 03/20/18 22:00 86 23 114/63 (80) 96 03/20/18 22:00 8.0 40 03/20/18 21:00 87 23 110/63 (79) 96 General Appearance: no apparent distress, other - on bipap Neck: supple Cardiovascular: normal rate Respiratory/Chest: rhonchi - bilaterally Abdomen: normal bowel sounds, non tender, soft Extremities: no swelling Intake and Output 03/20/18 03/21/18 19:00 07:00 Intake Total 580.0 ml 1060.0 ml Output Total 100 ml 381 ml Balance 480.0 ml 679.0 ml Free Water 200 ml IV Total 560.0 ml 640.0 ml Tube Feeding 20 ml 220 ml Output Urine Total 100 ml 381 ml # Voids 2 Laboratory Tests Test 03/21/18 05:11 White Blood Count 12.5 K/UL (4.8-10.8) H Red Blood Count 3.75 M/UL (4.20-5.40) L Hemoglobin 11.5 G/DL (12.0-16.0) L Hematocrit 35.5 % (37.0-47.0) L Mean Corpuscular Volume 94 FL (80-99) Mean Corpuscular Hemoglobin 30.6 PG (27.0-31.0) Mean Corpuscular Hemoglobin Concent 32.4 G/DL (32.0-36.0) Red Cell Distribution Width 14.1 % (11.6-14.8) Platelet Count 111 K/UL (150-450) L Mean Platelet Volume 9.7 FL (6.5-10.1) Neutrophils (%) (Auto) % (45.0-75.0) Lymphocytes (%) (Auto) % (20.0-45.0) Monocytes (%) (Auto) % (1.0-10.0) Eosinophils (%) (Auto) % (0.0-3.0) Basophils (%) (Auto) % (0.0-2.0) Differential Total Cells Counted 100 Neutrophils % (Manual) 86 % (45-75) H Lymphocytes % (Manual) 3 % (20-45) L Monocytes % (Manual) 2 % (1-10) Eosinophils % (Manual) 0 % (0-3) Basophils % (Manual) 0 % (0-2) Band Neutrophils 9 % (0-8) H Platelet Estimate Decreased L Platelet Morphology Normal Red Blood Cell Morphology Normal Prothrombin Time 16.1 SEC (9.30-11.50) H Prothromb Time International Ratio 1.6 (0.9-1.1) H Sodium Level 147 MMOL/L (136-145) H Potassium Level 4.2 MMOL/L (3.5-5.1) Chloride Level 111 MMOL/L (98-107) H Carbon Dioxide Level 28 MMOL/L (21-32) Anion Gap 8 mmol/L (5-15) Blood Urea Nitrogen 28 mg/dL (7-18) H Creatinine 1.0 MG/DL (0.55-1.30) Estimat Glomerular Filtration Rate mL/min (>60) Glucose Level 141 MG/DL (74-106) H Calcium Level 9.2 MG/DL (8.5-10.1) Phosphorus Level 2.5 MG/DL (2.5-4.9) Total Bilirubin 0.6 MG/DL (0.2-1.0) Aspartate Amino Transf (AST/SGOT) 29 U/L (15-37) Alanine Aminotransferase (ALT/SGPT) 35 U/L (12-78) Alkaline Phosphatase 65 U/L (46-116) Total Protein 5.1 G/DL (6.4-8.2) L Albumin 2.4 G/DL (3.4-5.0) L Globulin 2.7 g/dL Albumin/Globulin Ratio 0.9 (1.0-2.7) L Herminio Diallo MD Mar 21, 2018 20:21
[2018-03-21] MEDS ORDERED: Milk of Magnesia 30ml Ud GT PRN (20:30)
[2018-03-22] VITALS: BP 147/67
[2018-03-22 04:00] VITALS: BP 148/78
[2018-03-22] MEDS: Albuterol/Ipratropium 3ml neb HHN SCH ×6 (04:06→23:05)
[2018-03-22 05:42] LABS: HEMATOCRIT 34.6 % (37.0-47.0); HEMOGLOBIN 11.1 G/DL (12.0-16.0); MEAN CORPUSCULAR VOLUME 95 FL (80-99); PLATELET COUNT 106 K/UL (150-450); RED BLOOD COUNT 3.66 M/UL (4.20-5.40); RED CELL DISTRIBUTION WIDTH 13.9 % (11.6-14.8); WHITE BLOOD COUNT 12.5 K/UL (4.8-10.8)
[2018-03-22 06:03] LABS: ANION GAP 6 mmol/L (5-15); BLOOD UREA NITROGEN 37 mg/dL (7-18); CALCIUM 9.3 MG/DL (8.5-10.1); CARBON DIOXIDE 32 MMOL/L (21-32); CHLORIDE 107 MMOL/L (98-107); PHOSPHORUS 2.4 MG/DL (2.5-4.9); POTASSIUM 3.9 MMOL/L (3.5-5.1); SODIUM 145 MMOL/L (136-145)
[2018-03-22 06:10] LABS: INR 1.4 (0.9-1.1)
[2018-03-22] MEDS: Artificial Tears 1.4% Op Soln BOTH EYES SCH ×4 (07:30→15:00)
[2018-03-22 08:00] VITALS: BP 163/84
[2018-03-22] MEDS: Docusate 100mg/10ml Liq GT SCH (08:11)
[2018-03-22] MEDS: Levodopa/Carbidopa 25/250 tab GT SCH ×2 (08:12→12:54)
[2018-03-22] MEDS: Pantoprazole Inj IV SCH (08:12)
[2018-03-22] MEDS: Solu-MEDROL 40mg Inj IVP SCH (09:31)
[2018-03-22] MEDS: Multivitamins W/Minerals 15 ML UDC GT SCH (09:31)
[2018-03-22] MEDS: Ascorbic Acid 500mg tab GT SCH (09:32)
--- NOTE | 2018-03-22 10:07 | Pulmonology Progress Note ---
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 -H/O Hip Fx -PD -Dementia -Dsyphagia S/P PEG PLAN: -BiPAP PRN only -Titrate down FiO2 to keep SaO2 > 90% -Optimize pulmonary hygiene/mobilize as tolerated -RTC and PRN HHN's -Decrease SM to 20 IV qD -PRN racemic EPI -Observe off Abx -Monitor volumes and renal function, SLIV, PRN Lasix -GTF's -DVT Px: coumadin -DNAR/DNI D/W daughter D/W RN Subjective Allergies: Coded Allergies: STRAWBERRY (Verified Allergy, Unknown, Rash, 06/29/13) COPIED FROM UNCODED SECTION VALSARTAN (Verified Allergy, Unknown, 03/09/11) Subjective PRATEEK AFVSS on VM tiffanie TF's d some cough but better no FC Objective Last 24 Hour Vital Signs Date Time Temp Pulse Resp B/P (MAP) Pulse Ox O2 Delivery O2 Flow Rate FiO2 03/22/18 09:30 79 125/75 03/22/18 08:00 98.2 80 20 163/84 (110) 95 03/22/18 08:00 Bi-pap 03/22/18 08:00 10.0 45 03/22/18 07:10 77 20 100 Venturi Mask 10.0 45 03/22/18 07:00 75 22 96 Venturi Mask 10.0 45 03/22/18 06:55 96 Venturi Mask 10.0 45 03/22/18 06:55 Venturi Mask 10.0 45 03/22/18 05:31 58 17 97 Facial 30 03/22/18 04:08 61 17 98 Facial 30 03/22/18 04:07 68 18 98 Bi-pap 30 03/22/18 04:00 98.1 68 23 148/78 (101) 100 03/22/18 04:00 67 03/22/18 04:00 30 03/22/18 04:00 Bi-pap 03/22/18 03:55 65 18 97 Bi-pap 30 03/22/18 01:48 62 15 98 Facial 30 03/22/18 00:00 70 03/22/18 00:00 Bi-pap 03/22/18 00:00 97.5 71 23 147/67 (93) 100 03/21/18 23:16 67 17 100 Facial 30 03/21/18 23:16 72 17 99 Bi-pap 30 03/21/18 23:10 66 16 98 Bi-pap 30 03/21/18 21:45 70 20 95 Facial 30 03/21/18 20:00 96 Bi-pap 30 03/21/18 20:00 30 03/21/18 20:00 Bi-pap 30 03/21/18 20:00 70 17 98 Bi-pap 30 03/21/18 20:00 68 03/21/18 20:00 72 19 96 Facial 30 03/21/18 20:00 Bi-pap 03/21/18 20:00 97.9 69 23 139/74 (95) 97 03/21/18 19:50 69 17 96 Bi-pap 30 03/21/18 17:38 88 24 95 Facial 30 03/21/18 16:00 Venturi Mask 10.0 03/21/18 16:00 84 03/21/18 16:00 98.1 83 23 127/72 (90) 95 03/21/18 16:00 10.0 45 03/21/18 15:22 83 22 99 Venturi Mask 10.0 45 03/21/18 15:14 79 22 98 Venturi Mask 10.0 45 03/21/18 12:00 10.0 45 03/21/18 12:00 Venturi Mask 8.0 03/21/18 12:00 98.2 80 24 123/73 (90) 98 03/21/18 11:52 85 03/21/18 11:09 75 26 99 Venturi Mask 10.0 45 03/21/18 11:00 75 26 99 Venturi Mask 10.0 45 Intake and Output 03/21/18 03/22/18 19:00 07:00 Intake Total 365.0 ml 450 ml Output Total 900 ml 600 ml Balance -535.0 ml -150 ml IV Total 55.0 ml Tube Feeding 310 ml 450 ml Output Urine Total 900 ml 600 ml General Appearance: no acute distress - on HEENT: normocephalic, atraumatic, anicteric, mucous membranes moist Respiratory/Chest: rhonchi Cardiovascular: normal peripheral pulses, normal rate, regular rhythm Abdomen: normal bowel sounds, soft, non tender, no organomegaly, non distended , other - GT Extremities: no cyanosis, no clubbing, no edema Laboratory Tests 03/22/18 03:30: White Blood Count 12.5H, Red Blood Count 3.66L, Hemoglobin 11.1L, Hematocrit 34.6L, Mean Corpuscular Volume 95, Mean Corpuscular Hemoglobin 30.4, Mean Corpuscular Hemoglobin Concent 32.2, Red Cell Distribution Width 13.9, Platelet Count 106L, Mean Platelet Volume 10.8H, Neutrophils (%) (Auto) , Lymphocytes (% ) (Auto) , Monocytes (%) (Auto) , Eosinophils (%) (Auto) , Basophils (%) (Auto) , Differential Total Cells Counted 100, Neutrophils % (Manual) 93H, Lymphocytes % (Manual) 3L, Monocytes % (Manual) 4, Eosinophils % (Manual) 0, Basophils % ( Manual) 0, Band Neutrophils 0, Platelet Estimate DecreasedL, Platelet Morphology Normal, Red Blood Cell Morphology Normal, Prothrombin Time 14.7H, Prothromb Time International Ratio 1.4H, Sodium Level 145, Potassium Level 3.9, Chloride Level 107, Carbon Dioxide Level 32, Anion Gap 6, Blood Urea Nitrogen 37H, Creatinine 1.0, Estimat Glomerular Filtration Rate , Glucose Level 128H, Calcium Level 9.3, Phosphorus Level 2.4L, Magnesium Level 1.8 Current Medications Medications (Trade) Dose Ordered Sig/Marcel Route PRN Reason Start Time Stop Time Status Last Admin Dose Admin Acetaminophen (Tylenol) 650 mg Q4H PRN GT Mild Pain/Temp > 100.5 03/21/18 04:15 04/19/18 20:14 Albuterol/ Ipratropium (Albuterol/ Ipratropium) 3 ml Q4HRT HHN 03/21/18 03:00 03/25/18 11:29 03/22/18 07:00 Amlodipine Besylate (Norvasc) 2.5 mg DAILY@0930 GT 03/22/18 09:30 04/20/18 09:29 Artificial Tears (Akwa-Tears) 1 drop 0730,1000,1230,1500 BOTH EYES 03/21/18 07:30 04/15/18 07:29 03/21/18 07:47 Ascorbic Acid (Vitamin C) 500 mg DAILY@0930 GT 03/21/18 09:30 04/20/18 09:29 03/22/18 09:32 Calcium Carbonate (Os-Wyatt) 2,500 mg BID@0930,1700 GT 03/21/18 09:30 04/20/18 09:29 03/22/18 09:32 Carbidopa/Levodopa (Sinemet 25/250) 1 tab BID@0730,1230 GT 03/21/18 07:30 04/20/18 07:29 03/22/18 08:12 Dextrose (Dextrose 50%) 25 ml Q30M PRN IV Hypoglycemia 03/21/18 03:30 04/13/18 12:59 Dextrose (Dextrose 50%) 50 ml Q30M PRN IV Hypoglycemia 03/21/18 03:30 04/13/18 12:59 Diphenhydramine HCl (Benadryl) 25 mg Q6H PRN GT Itching 03/21/18 08:30 04/19/18 20:29 Docusate Sodium (Colace) 200 mg DAILY@0730 GT 03/21/18 07:30 04/20/18 07:29 03/22/18 08:11 EZETIMIBE (Zetia) 10 mg DAILY@1700 GT 03/21/18 17:00 04/19/18 20:59 03/21/18 17:25 Haloperidol Lactate 0.5 mg/ Dextrose 55.1 ml @ 220.4 mls/ hr Q6H PRN IVPB Agitation 03/21/18 04:00 04/18/18 21:59 Hydralazine HCl (Apresoline) 5 mg Q4H PRN IV SBP >170 03/21/18 05:00 04/14/18 12:59 Levothyroxine Sodium (Synthroid) 112 mcg DAILY@0630 GT 03/21/18 06:30 04/14/18 06:29 03/22/18 06:02 Magnesium Hydroxide (Mom) 30 ml HSPRN PRN GT Constipation 03/21/18 20:30 04/13/18 20:59 03/22/18 08:12 Methylprednisolone Sodium Succinate (Solu-MEDROL) 20 mg BID IVP 03/21/18 09:00 04/20/18 08:59 03/22/18 09:31 Mirtazapine (Remeron) 15 mg DAILY@1800 GT 03/21/18 18:00 04/19/18 20:59 03/21/18 17:25 Multivitamins (Multivitamins W/ Minerals 15ml Liquid) 15 ml DAILY GT 03/21/18 09:00 04/20/18 08:59 03/22/18 09:31 Ondansetron HCl (Zofran) 4 mg Q6H PRN IVP Nausea & Vomiting 03/21/18 05:30 04/13/18 11:19 Pantoprazole (Protonix) 40 mg DAILY@0730 IV 03/21/18 07:30 04/15/18 07:29 03/22/18 08:12 Racepinephrine (S2) 0.5 ml Q4H PRN HHN STRIDOR 03/21/18 03:30 04/14/18 11:19 Ropinirole HCl (Requip) 1 mg BID@0730,1230 GT 03/21/18 07:30 04/19/18 20:14 03/22/18 08:12 Warfarin Sodium (Coumadin per pharmacy) 1 ea DAILY PRN MISC Per rx protocol 03/21/18 09:00 04/19/18 11:59 Warfarin Sodium (Coumadin) 6 mg ONCE GT 03/22/18 20:00 03/22/18 21:00 Kevyn Caraballo MD Mar 22, 2018 10:07
--- NOTE | 2018-03-22 10:56 | GI Progress Note ---
Assessment/Plan Problems: (1) Encounter for PEG (percutaneous endoscopic gastrostomy) ICD Codes: Z43.1 - Encounter for attention to gastrostomy SNOMED: 422671720, 560302106 (2) Severe malnutrition ICD Codes: E43 - Unspecified severe protein-calorie malnutrition SNOMED: 32935889 (3) Failure to thrive SNOMED: 96967865 (4) Dysphasia ICD Codes: R47.02 - Dysphasia SNOMED: 21100705 (5) Dehydration ICD Codes: E86.0 - Dehydration SNOMED: 16496349 (6) Hiatal hernia ICD Codes: K44.9 - Diaphragmatic hernia without obstruction or gangrene SNOMED: 43542532 Status: unchanged Status Narrative Discussed with Dr. Horta Assessment/Plan SUMMARY OF FINDINGS: 1. Large hiatal hernia. 2. Gastritis. 3. Status post successful PEG placement. RECOMMENDATIONS: Abdominal binder. Elevate head of the bed at all times. G-tube flush. G-tube care. GTFs per RD to goal abx supportive care The patient was seen and examined at bedside and all new and available data was reviewed in the patients chart. I agree with the above findings, impression and plan. (Patient seen earlier today. Signature stamp does not reflect patient encounter time.). - Chuck Horta MD Subjective Subjective limited Objective Last 24 Hour Vital Signs Date Time Temp Pulse Resp B/P (MAP) Pulse Ox O2 Delivery O2 Flow Rate FiO2 03/22/18 09:30 79 125/75 03/22/18 08:00 98.2 80 20 163/84 (110) 95 03/22/18 08:00 Bi-pap 03/22/18 08:00 10.0 45 03/22/18 08:00 80 03/22/18 07:10 77 20 100 Venturi Mask 10.0 45 03/22/18 07:00 75 22 96 Venturi Mask 10.0 45 03/22/18 06:55 96 Venturi Mask 10.0 45 03/22/18 06:55 Venturi Mask 10.0 45 03/22/18 05:31 58 17 97 Facial 30 03/22/18 04:08 61 17 98 Facial 30 03/22/18 04:07 68 18 98 Bi-pap 30 03/22/18 04:00 98.1 68 23 148/78 (101) 100 03/22/18 04:00 67 03/22/18 04:00 30 03/22/18 04:00 Bi-pap 03/22/18 03:55 65 18 97 Bi-pap 30 03/22/18 01:48 62 15 98 Facial 30 03/22/18 00:00 70 03/22/18 00:00 Bi-pap 03/22/18 00:00 97.5 71 23 147/67 (93) 100 03/21/18 23:16 67 17 100 Facial 30 03/21/18 23:16 72 17 99 Bi-pap 30 03/21/18 23:10 66 16 98 Bi-pap 30 03/21/18 21:45 70 20 95 Facial 30 03/21/18 20:00 96 Bi-pap 30 03/21/18 20:00 30 03/21/18 20:00 Bi-pap 30 03/21/18 20:00 70 17 98 Bi-pap 30 03/21/18 20:00 68 03/21/18 20:00 72 19 96 Facial 30 03/21/18 20:00 Bi-pap 03/21/18 20:00 97.9 69 23 139/74 (95) 97 03/21/18 19:50 69 17 96 Bi-pap 30 03/21/18 17:38 88 24 95 Facial 30 03/21/18 16:00 Venturi Mask 10.0 03/21/18 16:00 84 03/21/18 16:00 98.1 83 23 127/72 (90) 95 03/21/18 16:00 10.0 45 03/21/18 15:22 83 22 99 Venturi Mask 10.0 45 03/21/18 15:14 79 22 98 Venturi Mask 10.0 45 03/21/18 12:00 10.0 45 03/21/18 12:00 Venturi Mask 8.0 03/21/18 12:00 98.2 80 24 123/73 (90) 98 03/21/18 11:52 85 03/21/18 11:09 75 26 99 Venturi Mask 10.0 45 03/21/18 11:00 75 26 99 Venturi Mask 10.0 45 Intake and Output 03/21/18 03/22/18 19:00 07:00 Intake Total 365.0 ml 450 ml Output Total 900 ml 600 ml Balance -535.0 ml -150 ml IV Total 55.0 ml Tube Feeding 310 ml 450 ml Output Urine Total 900 ml 600 ml Laboratory Tests Test 03/22/18 03:30 White Blood Count 12.5 K/UL (4.8-10.8) H Red Blood Count 3.66 M/UL (4.20-5.40) L Hemoglobin 11.1 G/DL (12.0-16.0) L Hematocrit 34.6 % (37.0-47.0) L Mean Corpuscular Volume 95 FL (80-99) Mean Corpuscular Hemoglobin 30.4 PG (27.0-31.0) Mean Corpuscular Hemoglobin Concent 32.2 G/DL (32.0-36.0) Red Cell Distribution Width 13.9 % (11.6-14.8) Platelet Count 106 K/UL (150-450) L Mean Platelet Volume 10.8 FL (6.5-10.1) H Neutrophils (%) (Auto) % (45.0-75.0) Lymphocytes (%) (Auto) % (20.0-45.0) Monocytes (%) (Auto) % (1.0-10.0) Eosinophils (%) (Auto) % (0.0-3.0) Basophils (%) (Auto) % (0.0-2.0) Differential Total Cells Counted 100 Neutrophils % (Manual) 93 % (45-75) H Lymphocytes % (Manual) 3 % (20-45) L Monocytes % (Manual) 4 % (1-10) Eosinophils % (Manual) 0 % (0-3) Basophils % (Manual) 0 % (0-2) Band Neutrophils 0 % (0-8) Platelet Estimate Decreased L Platelet Morphology Normal Red Blood Cell Morphology Normal Prothrombin Time 14.7 SEC (9.30-11.50) H Prothromb Time International Ratio 1.4 (0.9-1.1) H Sodium Level 145 MMOL/L (136-145) Potassium Level 3.9 MMOL/L (3.5-5.1) Chloride Level 107 MMOL/L (98-107) Carbon Dioxide Level 32 MMOL/L (21-32) Anion Gap 6 mmol/L (5-15) Blood Urea Nitrogen 37 mg/dL (7-18) H Creatinine 1.0 MG/DL (0.55-1.30) Estimat Glomerular Filtration Rate mL/min (>60) Glucose Level 128 MG/DL (74-106) H Calcium Level 9.3 MG/DL (8.5-10.1) Phosphorus Level 2.4 MG/DL (2.5-4.9) L Magnesium Level 1.8 MG/DL (1.8-2.4) Height (Feet): 4 Height (Inches): 4.00 Weight (Pounds): 94 General Appearance: WD/WN, no apparent distress, alert, thin Cardiovascular: normal rate Respiratory/Chest: normal breath sounds, no respiratory distress, other - On BiPAP Abdominal Exam: normal bowel sounds, non tender, soft, GT site - Clean dry and intact Extremities: non-tender Clifton Brock NP Mar 22, 2018 10:56
[2018-03-22] MEDS: Acetaminophen 650mg/20.3ml GT PRN ×2 (11:47→17:36)
[2018-03-22 11:50] VITALS: BP 157/52
[2018-03-22 16:00] VITALS: BP 146/50
[2018-03-22 20:00] VITALS: BP 104/55
[2018-03-22] MEDS ORDERED: Warfarin Sodium 3mg GT SCH (20:00)
--- NOTE | 2018-03-22 20:18 | Cardiology Progress Note ---
Assessment/Plan Assessment/Plan 1. Bronchospasm/stridor seemed to have resolved. 2. History of Parkinson's. 3. Hypertension history. 4. Dementia. 5. History of deep venous thrombosis and pulmonary embolism. 6. Osteoporosis. 7. Diastolic dysfunction. 8. Hyperlipidemia. s/p peg prn bipap steroid taper she looks comfortable at the moment on coumadin feedign via peg dc ivf bp look stable dc norvasc labs are ok except phosp norbert add k phosp reepat cxr in am dc haldol Subjective ROS Limited/Unobtainable: Yes Objective Last 24 Hour Vital Signs Date Time Temp Pulse Resp B/P (MAP) Pulse Ox O2 Delivery O2 Flow Rate FiO2 03/22/18 20:00 98.1 87 24 104/55 (71) 96 03/22/18 19:46 85 20 99 Venturi Mask 8.0 40 03/22/18 19:24 80 20 97 Venturi Mask 8.0 40 03/22/18 19:24 Venturi Mask 10.0 45 03/22/18 19:24 97 Venturi Mask 10.0 45 03/22/18 16:00 Bi-pap 03/22/18 16:00 8.0 40 03/22/18 16:00 89 03/22/18 16:00 99.0 85 26 146/50 (82) 97 03/22/18 15:30 87 20 100 Venturi Mask 8.0 40 03/22/18 15:20 86 22 96 Venturi Mask 8.0 40 03/22/18 12:00 8.0 40 03/22/18 12:00 83 03/22/18 12:00 Bi-pap 03/22/18 11:50 98.2 86 24 157/52 (87) 96 03/22/18 11:40 84 20 99 Venturi Mask 8.0 40 03/22/18 11:30 84 22 94 Venturi Mask 8.0 40 03/22/18 09:30 79 125/75 03/22/18 08:00 98.2 80 20 163/84 (110) 95 03/22/18 08:00 Bi-pap 03/22/18 08:00 10.0 45 03/22/18 08:00 80 03/22/18 07:10 77 20 100 Venturi Mask 10.0 45 03/22/18 07:00 75 22 96 Venturi Mask 10.0 45 03/22/18 06:55 96 Venturi Mask 10.0 45 03/22/18 06:55 Venturi Mask 10.0 45 03/22/18 05:31 58 17 97 Facial 30 03/22/18 04:08 61 17 98 Facial 30 03/22/18 04:07 68 18 98 Bi-pap 30 03/22/18 04:00 98.1 68 23 148/78 (101) 100 03/22/18 04:00 67 03/22/18 04:00 30 03/22/18 04:00 Bi-pap 03/22/18 03:55 65 18 97 Bi-pap 30 03/22/18 01:48 62 15 98 Facial 30 03/22/18 00:00 70 03/22/18 00:00 Bi-pap 03/22/18 00:00 97.5 71 23 147/67 (93) 100 03/21/18 23:16 67 17 100 Facial 30 03/21/18 23:16 72 17 99 Bi-pap 30 03/21/18 23:10 66 16 98 Bi-pap 30 03/21/18 21:45 70 20 95 Facial 30 General Appearance: no apparent distress, agitated Cardiovascular: normal rate Respiratory/Chest: lungs clear Abdomen: normal bowel sounds, non tender, soft Extremities: no swelling Intake and Output 03/21/18 03/22/18 18:59 06:59 Intake Total 380.0 ml 485 ml Output Total 900 ml 600 ml Balance -520.0 ml -115 ml IV Total 105.0 ml Tube Feeding 275 ml 485 ml Output Urine Total 900 ml 600 ml Laboratory Tests Test 03/22/18 03:30 White Blood Count 12.5 K/UL (4.8-10.8) H Red Blood Count 3.66 M/UL (4.20-5.40) L Hemoglobin 11.1 G/DL (12.0-16.0) L Hematocrit 34.6 % (37.0-47.0) L Mean Corpuscular Volume 95 FL (80-99) Mean Corpuscular Hemoglobin 30.4 PG (27.0-31.0) Mean Corpuscular Hemoglobin Concent 32.2 G/DL (32.0-36.0) Red Cell Distribution Width 13.9 % (11.6-14.8) Platelet Count 106 K/UL (150-450) L Mean Platelet Volume 10.8 FL (6.5-10.1) H Neutrophils (%) (Auto) % (45.0-75.0) Lymphocytes (%) (Auto) % (20.0-45.0) Monocytes (%) (Auto) % (1.0-10.0) Eosinophils (%) (Auto) % (0.0-3.0) Basophils (%) (Auto) % (0.0-2.0) Differential Total Cells Counted 100 Neutrophils % (Manual) 93 % (45-75) H Lymphocytes % (Manual) 3 % (20-45) L Monocytes % (Manual) 4 % (1-10) Eosinophils % (Manual) 0 % (0-3) Basophils % (Manual) 0 % (0-2) Band Neutrophils 0 % (0-8) Platelet Estimate Decreased L Platelet Morphology Normal Red Blood Cell Morphology Normal Prothrombin Time 14.7 SEC (9.30-11.50) H Prothromb Time International Ratio 1.4 (0.9-1.1) H Sodium Level 145 MMOL/L (136-145) Potassium Level 3.9 MMOL/L (3.5-5.1) Chloride Level 107 MMOL/L (98-107) Carbon Dioxide Level 32 MMOL/L (21-32) Anion Gap 6 mmol/L (5-15) Blood Urea Nitrogen 37 mg/dL (7-18) H Creatinine 1.0 MG/DL (0.55-1.30) Estimat Glomerular Filtration Rate mL/min (>60) Glucose Level 128 MG/DL (74-106) H Calcium Level 9.3 MG/DL (8.5-10.1) Phosphorus Level 2.4 MG/DL (2.5-4.9) L Magnesium Level 1.8 MG/DL (1.8-2.4) Herminio Diallo MD Mar 22, 2018 20:18
[2018-03-22] MEDS ORDERED: Potassium Phosphate 15 MM in NS 275 ML IV SCH (23:00)
[2018-03-23] VITALS: BP 119/68
[2018-03-23] MEDS: Albuterol/Ipratropium 3ml neb HHN SCH ×6 (03:00→23:35)
[2018-03-23 04:00] VITALS: BP 154/81
[2018-03-23 06:27] LABS: ANION GAP 4 mmol/L (5-15); BLOOD UREA NITROGEN 40 mg/dL (7-18); CALCIUM 9.8 MG/DL (8.5-10.1); CARBON DIOXIDE 34 MMOL/L (21-32); CHLORIDE 110 MMOL/L (98-107); CREATININE 0.8 MG/DL (0.55-1.30); POTASSIUM 4.6 MMOL/L (3.5-5.1); SODIUM 148 MMOL/L (136-145)
[2018-03-23 06:38] LABS: INR 1.9 (0.9-1.1)
[2018-03-23 07:13] LABS: HEMATOCRIT 34.9 % (37.0-47.0); HEMOGLOBIN 11.5 G/DL (12.0-16.0); MEAN CORPUSCULAR VOLUME 93 FL (80-99); PLATELET COUNT 104 K/UL (150-450); RED BLOOD COUNT 3.74 M/UL (4.20-5.40); RED CELL DISTRIBUTION WIDTH 13.6 % (11.6-14.8); WHITE BLOOD COUNT 12.2 K/UL (4.8-10.8)
[2018-03-23] MEDS: Artificial Tears 1.4% Op Soln BOTH EYES SCH ×4 (07:30→15:00)
[2018-03-23 08:00] VITALS: BP 151/84
[2018-03-23] MEDS: Pantoprazole Inj IV SCH (08:11)
[2018-03-23] MEDS: Solu-MEDROL 40mg Inj IVP SCH (08:11)
[2018-03-23] MEDS: Levodopa/Carbidopa 25/250 tab GT SCH ×2 (08:11→12:03)
[2018-03-23] MEDS: Multivitamins W/Minerals 15 ML UDC GT SCH (08:12)
[2018-03-23] MEDS: Docusate 100mg/10ml Liq GT SCH (08:12)
[2018-03-23] MEDS: Ascorbic Acid 500mg tab GT SCH (09:11)
--- NOTE | 2018-03-23 10:21 | GI Progress Note ---
Assessment/Plan Problems: (1) Encounter for PEG (percutaneous endoscopic gastrostomy) ICD Codes: Z43.1 - Encounter for attention to gastrostomy SNOMED: 658474473, 041759076 (2) Severe malnutrition ICD Codes: E43 - Unspecified severe protein-calorie malnutrition SNOMED: 92267374 (3) Failure to thrive SNOMED: 76895988 (4) Dysphasia ICD Codes: R47.02 - Dysphasia SNOMED: 69842054 (5) Dehydration ICD Codes: E86.0 - Dehydration SNOMED: 06591228 (6) Hiatal hernia ICD Codes: K44.9 - Diaphragmatic hernia without obstruction or gangrene SNOMED: 71484198 Status: unchanged Status Narrative Discussed with Dr. Horta Assessment/Plan SUMMARY OF FINDINGS: 1. Large hiatal hernia. 2. Gastritis. 3. Status post successful PEG placement. RECOMMENDATIONS: Abdominal binder. Elevate head of the bed at all times. G-tube flush. G-tube care. GTFs per RD to goal abx Reglan as needed for GI motility supportive care The patient was seen and examined at bedside and all new and available data was reviewed in the patients chart. I agree with the above findings, impression and plan. (Patient seen earlier today. Signature stamp does not reflect patient encounter time.). - Chuck Horta MD Subjective Subjective limited Objective Last 24 Hour Vital Signs Date Time Temp Pulse Resp B/P (MAP) Pulse Ox O2 Delivery O2 Flow Rate FiO2 03/23/18 08:00 8.0 40 03/23/18 08:00 98.2 78 26 151/84 (106) 94 03/23/18 08:00 Venturi Mask 8.0 03/23/18 07:05 78 24 95 Venturi Mask 8.0 40 03/23/18 06:53 95 Bi-pap 30 03/23/18 06:53 77 30 95 Bi-pap 30 03/23/18 06:53 Bi-pap 30 03/23/18 05:26 78 28 94 Facial 30 03/23/18 04:00 Bi-pap 03/23/18 04:00 30 03/23/18 04:00 76 03/23/18 04:00 98.4 72 26 154/81 (105) 94 03/23/18 03:25 79 29 98 Bi-pap 30 03/23/18 03:15 85 30 95 Facial 30 03/23/18 03:15 77 30 97 Bi-pap 30 03/23/18 00:57 74 22 96 Facial 30 03/23/18 00:00 98.6 79 26 119/68 (85) 95 03/23/18 00:00 93 03/23/18 00:00 30 03/23/18 00:00 Bi-pap 03/22/18 23:12 84 20 98 Bi-pap 30 03/22/18 23:04 83 30 97 Bi-pap 30 03/22/18 23:03 83 35 96 Facial 30 03/22/18 20:00 8.0 40 03/22/18 20:00 78 03/22/18 20:00 98.1 87 24 104/55 (71) 96 03/22/18 20:00 Venturi Mask 8.0 03/22/18 19:46 85 20 99 Venturi Mask 8.0 40 03/22/18 19:24 80 20 97 Venturi Mask 8.0 40 03/22/18 19:24 Venturi Mask 10.0 45 03/22/18 19:24 97 Venturi Mask 10.0 45 03/22/18 16:00 Bi-pap 03/22/18 16:00 8.0 40 03/22/18 16:00 89 03/22/18 16:00 99.0 85 26 146/50 (82) 97 03/22/18 15:30 87 20 100 Venturi Mask 8.0 40 03/22/18 15:20 86 22 96 Venturi Mask 8.0 40 03/22/18 12:00 8.0 40 03/22/18 12:00 83 03/22/18 12:00 Bi-pap 03/22/18 11:50 98.2 86 24 157/52 (87) 96 03/22/18 11:40 84 20 99 Venturi Mask 8.0 40 03/22/18 11:30 84 22 94 Venturi Mask 8.0 40 Intake and Output 03/22/18 03/23/18 19:00 07:00 Intake Total 745 ml 795.000 ml Output Total 150 ml 200 ml Balance 595 ml 595.000 ml Free Water 250 ml 110 ml IV Total 280.000 ml Tube Feeding 495 ml 405 ml Output Urine Total 150 ml 200 ml # Voids 1 # Bowel Movements 4 Laboratory Tests Test 03/23/18 04:35 White Blood Count 12.2 K/UL (4.8-10.8) H Red Blood Count 3.74 M/UL (4.20-5.40) L Hemoglobin 11.5 G/DL (12.0-16.0) L Hematocrit 34.9 % (37.0-47.0) L Mean Corpuscular Volume 93 FL (80-99) Mean Corpuscular Hemoglobin 30.8 PG (27.0-31.0) Mean Corpuscular Hemoglobin Concent 33.0 G/DL (32.0-36.0) Red Cell Distribution Width 13.6 % (11.6-14.8) Platelet Count 104 K/UL (150-450) L Mean Platelet Volume 10.1 FL (6.5-10.1) Neutrophils (%) (Auto) % (45.0-75.0) Lymphocytes (%) (Auto) % (20.0-45.0) Monocytes (%) (Auto) % (1.0-10.0) Eosinophils (%) (Auto) % (0.0-3.0) Basophils (%) (Auto) % (0.0-2.0) Differential Total Cells Counted 100 Neutrophils % (Manual) 83 % (45-75) H Lymphocytes % (Manual) 13 % (20-45) L Monocytes % (Manual) 4 % (1-10) Eosinophils % (Manual) 0 % (0-3) Basophils % (Manual) 0 % (0-2) Band Neutrophils 0 % (0-8) Platelet Estimate Decreased L Platelet Morphology Normal Red Blood Cell Morphology Hypochromasia 1+ Prothrombin Time 19.0 SEC (9.30-11.50) H Prothromb Time International Ratio 1.9 (0.9-1.1) H Sodium Level 148 MMOL/L (136-145) H Potassium Level 4.6 MMOL/L (3.5-5.1) Chloride Level 110 MMOL/L (98-107) H Carbon Dioxide Level 34 MMOL/L (21-32) H Anion Gap 4 mmol/L (5-15) L Blood Urea Nitrogen 40 mg/dL (7-18) H Creatinine 0.8 MG/DL (0.55-1.30) Estimat Glomerular Filtration Rate mL/min (>60) Glucose Level 91 MG/DL (74-106) Calcium Level 9.8 MG/DL (8.5-10.1) Pro-B-Type Natriuretic Peptide 2774 pg/mL (0-125) H Height (Feet): 4 Height (Inches): 4.00 Weight (Pounds): 99 General Appearance: WD/WN, no apparent distress, alert Cardiovascular: normal rate Respiratory/Chest: normal breath sounds, no respiratory distress, other - Venturi mask Abdominal Exam: normal bowel sounds, non tender, soft, GT site - Clean dry and intact Extremities: non-tender Clifton Brock NP Mar 23, 2018 10:21
--- NOTE | 2018-03-23 11:31 | Diagnostic Imaging Report ---
Indication: Shortness of breath Technique: One view of the chest Comparison: 03/20/2018 Findings: Patient is rotated to the right. Bilateral interstitial and airspace disease, right lung volume loss persists. There is probably some pleural fluid bilaterally, unchanged. The heart remains enlarged. The trachea and esophagus remain dilated. Impression: Unchanged, over 3 days, findings as above.
[2018-03-23 12:00] VITALS: BP 132/81
[2018-03-23 16:00] VITALS: BP 133/75
[2018-03-23] MEDS: Acetaminophen 650mg/20.3ml GT PRN (17:28)
[2018-03-23 20:00] VITALS: BP 124/72
[2018-03-23] MEDS ORDERED: Warfarin Sodium 4mg GT ONE (20:00)
--- NOTE | 2018-03-23 20:26 | Cardiology Progress Note ---
Assessment/Plan Assessment/Plan 1. Bronchospasm/stridor seemed to have resolved. 2. History of Parkinson's. 3. Hypertension history. 4. Dementia. 5. History of deep venous thrombosis and pulmonary embolism. 6. Osteoporosis. 7. Diastolic dysfunction. 8. Hyperlipidemia. s/p peg prn bipap steroid taper she looks comfortable at the moment but is agitated on coumadin feedign via peg dc ivf bp look stable dc norvasc cxr noted off haldol will ask neuro to see Subjective ROS Limited/Unobtainable: Yes Subjective moans groans Objective Last 24 Hour Vital Signs Date Time Temp Pulse Resp B/P (MAP) Pulse Ox O2 Delivery O2 Flow Rate FiO2 03/23/18 19:32 68 21 99 Venturi Mask 8.0 40 03/23/18 19:22 Venturi Mask 8.0 40 03/23/18 19:22 97 Venturi Mask 8.0 40 03/23/18 19:22 67 19 97 Venturi Mask 8.0 40 03/23/18 16:00 Venturi Mask 8.0 03/23/18 16:00 97.5 79 22 133/75 (94) 95 03/23/18 16:00 8.0 40 03/23/18 15:36 75 03/23/18 14:20 88 23 98 Venturi Mask 8.0 40 03/23/18 14:04 82 23 98 Venturi Mask 8.0 40 03/23/18 12:00 99.3 87 22 132/81 (98) 95 03/23/18 12:00 8.0 40 03/23/18 12:00 Venturi Mask 8.0 03/23/18 11:44 81 03/23/18 10:55 80 29 97 Venturi Mask 8.0 40 03/23/18 10:40 78 28 100 Venturi Mask 8.0 40 03/23/18 08:21 77 03/23/18 08:00 8.0 40 03/23/18 08:00 98.2 78 26 151/84 (106) 94 03/23/18 08:00 Venturi Mask 8.0 03/23/18 07:05 78 24 95 Venturi Mask 8.0 40 03/23/18 06:53 95 Bi-pap 30 03/23/18 06:53 77 30 95 Bi-pap 30 03/23/18 06:53 Bi-pap 30 03/23/18 05:26 78 28 94 Facial 30 03/23/18 04:00 Bi-pap 03/23/18 04:00 30 03/23/18 04:00 76 03/23/18 04:00 98.4 72 26 154/81 (105) 94 03/23/18 03:25 79 29 98 Bi-pap 30 03/23/18 03:15 85 30 95 Facial 30 03/23/18 03:15 77 30 97 Bi-pap 30 03/23/18 00:57 74 22 96 Facial 30 03/23/18 00:00 98.6 79 26 119/68 (85) 95 03/23/18 00:00 93 03/23/18 00:00 30 03/23/18 00:00 Bi-pap 03/22/18 23:12 84 20 98 Bi-pap 30 03/22/18 23:04 83 30 97 Bi-pap 30 03/22/18 23:03 83 35 96 Facial 30 General Appearance: agitated Neck: supple Cardiovascular: normal rate, regular rhythm Respiratory/Chest: lungs clear Abdomen: normal bowel sounds, non tender, soft Extremities: no swelling Intake and Output 03/22/18 03/23/18 19:00 07:00 Intake Total 745 ml 840.000 ml Output Total 150 ml 200 ml Balance 595 ml 640.000 ml Free Water 250 ml 110 ml IV Total 280.000 ml Tube Feeding 495 ml 450 ml Output Urine Total 150 ml 200 ml # Voids 1 # Bowel Movements 4 Laboratory Tests Test 03/23/18 04:35 White Blood Count 12.2 K/UL (4.8-10.8) H Red Blood Count 3.74 M/UL (4.20-5.40) L Hemoglobin 11.5 G/DL (12.0-16.0) L Hematocrit 34.9 % (37.0-47.0) L Mean Corpuscular Volume 93 FL (80-99) Mean Corpuscular Hemoglobin 30.8 PG (27.0-31.0) Mean Corpuscular Hemoglobin Concent 33.0 G/DL (32.0-36.0) Red Cell Distribution Width 13.6 % (11.6-14.8) Platelet Count 104 K/UL (150-450) L Mean Platelet Volume 10.1 FL (6.5-10.1) Neutrophils (%) (Auto) % (45.0-75.0) Lymphocytes (%) (Auto) % (20.0-45.0) Monocytes (%) (Auto) % (1.0-10.0) Eosinophils (%) (Auto) % (0.0-3.0) Basophils (%) (Auto) % (0.0-2.0) Differential Total Cells Counted 100 Neutrophils % (Manual) 83 % (45-75) H Lymphocytes % (Manual) 13 % (20-45) L Monocytes % (Manual) 4 % (1-10) Eosinophils % (Manual) 0 % (0-3) Basophils % (Manual) 0 % (0-2) Band Neutrophils 0 % (0-8) Platelet Estimate Decreased L Platelet Morphology Normal Red Blood Cell Morphology Hypochromasia 1+ Prothrombin Time 19.0 SEC (9.30-11.50) H Prothromb Time International Ratio 1.9 (0.9-1.1) H Sodium Level 148 MMOL/L (136-145) H Potassium Level 4.6 MMOL/L (3.5-5.1) Chloride Level 110 MMOL/L (98-107) H Carbon Dioxide Level 34 MMOL/L (21-32) H Anion Gap 4 mmol/L (5-15) L Blood Urea Nitrogen 40 mg/dL (7-18) H Creatinine 0.8 MG/DL (0.55-1.30) Estimat Glomerular Filtration Rate mL/min (>60) Glucose Level 91 MG/DL (74-106) Calcium Level 9.8 MG/DL (8.5-10.1) Pro-B-Type Natriuretic Peptide 2774 pg/mL (0-125) H Herminio Diallo MD Mar 23, 2018 20:26
[2018-03-24] VITALS: BP 138/71
[2018-03-24] MEDS: Acetaminophen 650mg/20.3ml GT PRN ×3 (00:44→17:31)
[2018-03-24] MEDS: Albuterol/Ipratropium 3ml neb HHN SCH ×6 (03:01→22:44)
[2018-03-24 04:00] VITALS: BP 124/84
[2018-03-24 06:12] LABS: HEMATOCRIT 33.7 % (37.0-47.0); MEAN CORPUSCULAR VOLUME 95 FL (80-99); PLATELET COUNT 125 K/UL (150-450); RED BLOOD COUNT 3.54 M/UL (4.20-5.40); RED CELL DISTRIBUTION WIDTH 14.1 % (11.6-14.8); WHITE BLOOD COUNT 12.3 K/UL (4.8-10.8)
[2018-03-24 06:29] LABS: INR 1.9 (0.9-1.1)
[2018-03-24 06:38] LABS: ANION GAP 3 mmol/L (5-15); BLOOD UREA NITROGEN 36 mg/dL (7-18); CALCIUM 9.4 MG/DL (8.5-10.1); CARBON DIOXIDE 33 MMOL/L (21-32); CHLORIDE 106 MMOL/L (98-107); CREATININE 0.8 MG/DL (0.55-1.30); POTASSIUM 4.6 MMOL/L (3.5-5.1); SODIUM 142 MMOL/L (136-145)
[2018-03-24] MEDS: Docusate 100mg/10ml Liq GT SCH (07:44)
[2018-03-24] MEDS: Levodopa/Carbidopa 25/250 tab GT SCH ×2 (07:44→12:06)
[2018-03-24] MEDS: Pantoprazole Inj IV SCH (07:44)
[2018-03-24] MEDS: Artificial Tears 1.4% Op Soln BOTH EYES SCH ×4 (07:44→15:36)
[2018-03-24 08:00] VITALS: BP 138/77
[2018-03-24] MEDS: Solu-MEDROL 40mg Inj IVP SCH (08:50)
[2018-03-24] MEDS: Multivitamins W/Minerals 15 ML UDC GT SCH (08:51)
[2018-03-24] MEDS: Ascorbic Acid 500mg tab GT SCH (08:51)
--- NOTE | 2018-03-24 10:36 | General Progress Note ---
Assessment/Plan Problem List: (1) S/P percutaneous endoscopic gastrostomy (PEG) tube placement ICD Codes: Z93.1 - Gastrostomy status SNOMED: 598735443 (2) Chronic diastolic CHF (congestive heart failure) ICD Codes: I50.32 - Chronic diastolic CHF (congestive heart failure) SNOMED: 398421116 (3) History of pulmonary embolism ICD Codes: Z86.711 - History of pulmonary embolism SNOMED: 908636903 (4) Failure to thrive SNOMED: 70631989 (5) Dysphasia ICD Codes: R47.02 - Dysphasia SNOMED: 52913397 (6) Hiatal hernia ICD Codes: K44.9 - Diaphragmatic hernia without obstruction or gangrene SNOMED: 55346013 Assessment/Plan Assessment/Plan SUMMARY OF FINDINGS: 1. Large hiatal hernia. 2. Gastritis. 3. Status post successful PEG placement. RECOMMENDATIONS: Abdominal binder. Elevate head of the bed at all times. G-tube flush. G-tube care. GTFs per RD to goal abx Reglan as needed for GI motility supportive car Subjective ROS Limited/Unobtainable: No Allergies: Coded Allergies: STRAWBERRY (Verified Allergy, Unknown, Rash, 06/29/13) COPIED FROM UNCODED SECTION VALSARTAN (Verified Allergy, Unknown, 03/09/11) Objective Last 24 Hour Vital Signs Date Time Temp Pulse Resp B/P (MAP) Pulse Ox O2 Delivery O2 Flow Rate FiO2 03/24/18 08:00 74 03/24/18 08:00 98.4 67 21 138/77 (97) 93 03/24/18 08:00 Venturi Mask 8.0 03/24/18 07:24 Venturi Mask 8.0 40 03/24/18 07:24 62 24 99 Venturi Mask 8.0 40 03/24/18 07:24 95 Venturi Mask 8.0 40 03/24/18 07:15 64 24 95 Venturi Mask 8.0 40 03/24/18 04:00 67 03/24/18 04:00 98.6 71 26 124/84 (97) 93 03/24/18 04:00 Venturi Mask 8.0 03/24/18 03:15 61 19 100 Venturi Mask 8.0 40 03/24/18 03:01 70 19 95 Venturi Mask 8.0 40 03/24/18 00:00 Venturi Mask 8.0 03/24/18 00:00 61 03/24/18 00:00 98.1 65 18 138/71 (93) 93 03/23/18 23:45 72 20 99 Venturi Mask 8.0 40 03/23/18 23:35 67 21 94 Venturi Mask 8.0 40 03/23/18 21:00 Venturi Mask 8.0 03/23/18 20:00 69 03/23/18 20:00 97.5 73 24 124/72 (89) 96 03/23/18 20:00 8.0 40 03/23/18 19:32 68 21 99 Venturi Mask 8.0 40 03/23/18 19:22 Venturi Mask 8.0 40 03/23/18 19:22 97 Venturi Mask 8.0 40 03/23/18 19:22 67 19 97 Venturi Mask 8.0 40 03/23/18 16:00 Venturi Mask 8.0 03/23/18 16:00 97.5 79 22 133/75 (94) 95 03/23/18 16:00 8.0 40 03/23/18 15:36 75 03/23/18 14:20 88 23 98 Venturi Mask 8.0 40 03/23/18 14:04 82 23 98 Venturi Mask 8.0 40 03/23/18 12:00 99.3 87 22 132/81 (98) 95 03/23/18 12:00 8.0 40 03/23/18 12:00 Venturi Mask 8.0 03/23/18 11:44 81 03/23/18 10:55 80 29 97 Venturi Mask 8.0 40 03/23/18 10:40 78 28 100 Venturi Mask 8.0 40 Intake and Output 03/23/18 03/24/18 18:59 06:59 Intake Total 450 ml 620 ml Output Total 400 ml 500 ml Balance 50 ml 120 ml Free Water 90 ml 140 ml Tube Feeding 360 ml 480 ml Output Urine Total 400 ml 500 ml Laboratory Tests 03/24/18 05:00: White Blood Count 12.3H, Red Blood Count 3.54L, Hemoglobin 11.0L, Hematocrit 33.7L, Mean Corpuscular Volume 95, Mean Corpuscular Hemoglobin 31.0, Mean Corpuscular Hemoglobin Concent 32.6, Red Cell Distribution Width 14.1, Platelet Count 125L, Mean Platelet Volume 11.5H, Neutrophils (%) (Auto) , Lymphocytes (% ) (Auto) , Monocytes (%) (Auto) , Eosinophils (%) (Auto) , Basophils (%) (Auto) , Differential Total Cells Counted 100, Neutrophils % (Manual) 88H, Lymphocytes % (Manual) 7L, Monocytes % (Manual) 3, Eosinophils % (Manual) 1, Basophils % ( Manual) 0, Band Neutrophils 1, Platelet Estimate DecreasedL, Platelet Morphology Normal, Prothrombin Time 19.5H, Prothromb Time International Ratio 1.9H, Sodium Level 142, Potassium Level 4.6, Chloride Level 106, Carbon Dioxide Level 33H, Anion Gap 3L, Blood Urea Nitrogen 36H, Creatinine 0.8, Estimat Glomerular Filtration Rate , Glucose Level 98, Calcium Level 9.4 Height (Feet): 4 Height (Inches): 4.00 Weight (Pounds): 96 General Appearance: agitated EENT: normal ENT inspection Neck: supple Cardiovascular: normal rate Respiratory/Chest: decreased breath sounds Abdomen: normal bowel sounds, non tender, soft Extremities: non-tender Chuck Horta MD Mar 24, 2018 10:35
--- NOTE | 2018-03-24 11:22 | Diagnostic Imaging Report ---
Indications: Dysphagia Technique: Patient ingested multiple substances under the supervision of speech pathology. Video fluoroscopic recording performed. Total fluoroscopy time 174.8 seconds. Total dose area product [id number] Total number of images-9 Comparison: none Findings: Ingestion of thin liquid barium demonstrates early pooling in the vallecula, good clearing of contrast bolus with swallowing. No definite aspiration or penetration. Ingestion of nectar thick liquid barium demonstrates early pooling in the vallecula, trace supraglottic laryngeal penetration. No vicky aspiration. With honey thick liquid barium, of barium puree, masticated solid there is early pooling of contrast in the vallecula, no aspiration or penetration Impression: Positive for penetration of nectar thick liquid barium No aspiration demonstrated Please refer to speech pathology report for more detailed analysis
[2018-03-24 12:00] VITALS: BP 136/77
--- NOTE | 2018-03-24 15:11 | Consultation ---
Consult Note Consult Note NEUROLOGY CONSULTATION: Full note dictated #[id number] 88 y/o, RH, CF with PH of HTN, DL, hypothyroidism, OCD, CHF, PS, dementia, CVD with right paresis, gait problems and now inability to walk, and episodes of aspiration pneumonia. She was hospitalized on 03/15/18 for respiratory problems related to aspiration pneumonia and fluid overload. She was noted to have significant problems with swallowing and has a PEG now. She has been moaning, groaning and unable to express herself and thus this consultation was requested. ON EXAM: Oriented to self only. Unable to cooperate for further mental status tests. Significant dysarthria. Significant aphasia. Right VII central. 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 Globally diminished DTRs Moderate rigidity and hypomimia. IMPRESSION: Moaning and groaning due to discomfort for reasons she cannot express. Advanced cognitive dysfunction Parkinsonian syndrome. REC: Continue present management. Patient's daughter made aware of findings. Observe Yobany Menard M.D., M.S.P.HYobany Chawla MD Mar 24, 2018 15:11
[2018-03-24 16:00] VITALS: BP 122/61
--- NOTE | 2018-03-24 19:32 | Cardiology Progress Note ---
Assessment/Plan Assessment/Plan 1. Bronchospasm/stridor seemed to have resolved. 2. History of Parkinson's. 3. Hypertension history. 4. Dementia. 5. History of deep venous thrombosis and pulmonary embolism. 6. Osteoporosis. 7. Diastolic dysfunction. 8. Hyperlipidemia. s/p peg prn bipap steroid taper she looks comfortable at the moment but is agitated on coumadin feedign via peg off ivf bp look stable dc norvasc cxr noted off haldol appreciate neuro input holding off on diuretics RT indicates sig puml secretion Subjective ROS Limited/Unobtainable: Yes Subjective moans groans Objective Last 24 Hour Vital Signs Date Time Temp Pulse Resp B/P (MAP) Pulse Ox O2 Delivery O2 Flow Rate FiO2 03/24/18 19:09 Venturi Mask 8.0 40 03/24/18 19:09 96 Venturi Mask 8.0 40 03/24/18 19:09 72 20 96 Venturi Mask 8.0 40 03/24/18 16:00 99.3 83 26 122/61 (81) 95 03/24/18 16:00 Venturi Mask 8.0 03/24/18 15:17 83 03/24/18 15:08 71 22 96 Venturi Mask 8.0 40 03/24/18 15:01 89 20 94 Venturi Mask 8.0 40 03/24/18 12:00 98.2 79 23 136/77 (96) 92 03/24/18 12:00 77 03/24/18 12:00 Venturi Mask 8.0 03/24/18 10:44 73 26 97 Venturi Mask 8.0 40 03/24/18 10:35 74 22 93 Venturi Mask 8.0 40 03/24/18 08:00 74 03/24/18 08:00 98.4 67 21 138/77 (97) 93 03/24/18 08:00 Venturi Mask 8.0 03/24/18 07:24 Venturi Mask 8.0 40 03/24/18 07:24 62 24 99 Venturi Mask 8.0 40 03/24/18 07:24 95 Venturi Mask 8.0 40 03/24/18 07:15 64 24 95 Venturi Mask 8.0 40 03/24/18 04:00 67 03/24/18 04:00 98.6 71 26 124/84 (97) 93 03/24/18 04:00 Venturi Mask 8.0 03/24/18 03:15 61 19 100 Venturi Mask 8.0 40 03/24/18 03:01 70 19 95 Venturi Mask 8.0 40 03/24/18 00:00 Venturi Mask 8.0 03/24/18 00:00 61 03/24/18 00:00 98.1 65 18 138/71 (93) 93 03/23/18 23:45 72 20 99 Venturi Mask 8.0 40 03/23/18 23:35 67 21 94 Venturi Mask 8.0 40 03/23/18 21:00 Venturi Mask 8.0 03/23/18 20:00 69 03/23/18 20:00 97.5 73 24 124/72 (89) 96 03/23/18 20:00 8.0 40 03/23/18 19:32 68 21 99 Venturi Mask 8.0 40 General Appearance: no apparent distress, agitated Neck: supple Cardiovascular: normal rate Respiratory/Chest: rhonchi - bilaterally Abdomen: normal bowel sounds, non tender, soft Extremities: no swelling Intake and Output 03/23/18 03/24/18 19:00 07:00 Intake Total 445 ml 610 ml Output Total 400 ml 500 ml Balance 45 ml 110 ml Free Water 90 ml 170 ml Tube Feeding 355 ml 440 ml Output Urine Total 400 ml 500 ml Laboratory Tests Test 03/24/18 05:00 White Blood Count 12.3 K/UL (4.8-10.8) H Red Blood Count 3.54 M/UL (4.20-5.40) L Hemoglobin 11.0 G/DL (12.0-16.0) L Hematocrit 33.7 % (37.0-47.0) L Mean Corpuscular Volume 95 FL (80-99) Mean Corpuscular Hemoglobin 31.0 PG (27.0-31.0) Mean Corpuscular Hemoglobin Concent 32.6 G/DL (32.0-36.0) Red Cell Distribution Width 14.1 % (11.6-14.8) Platelet Count 125 K/UL (150-450) L Mean Platelet Volume 11.5 FL (6.5-10.1) H Neutrophils (%) (Auto) % (45.0-75.0) Lymphocytes (%) (Auto) % (20.0-45.0) Monocytes (%) (Auto) % (1.0-10.0) Eosinophils (%) (Auto) % (0.0-3.0) Basophils (%) (Auto) % (0.0-2.0) Differential Total Cells Counted 100 Neutrophils % (Manual) 88 % (45-75) H Lymphocytes % (Manual) 7 % (20-45) L Monocytes % (Manual) 3 % (1-10) Eosinophils % (Manual) 1 % (0-3) Basophils % (Manual) 0 % (0-2) Band Neutrophils 1 % (0-8) Platelet Estimate Decreased L Platelet Morphology Normal Prothrombin Time 19.5 SEC (9.30-11.50) H Prothromb Time International Ratio 1.9 (0.9-1.1) H Sodium Level 142 MMOL/L (136-145) Potassium Level 4.6 MMOL/L (3.5-5.1) Chloride Level 106 MMOL/L (98-107) Carbon Dioxide Level 33 MMOL/L (21-32) H Anion Gap 3 mmol/L (5-15) L Blood Urea Nitrogen 36 mg/dL (7-18) H Creatinine 0.8 MG/DL (0.55-1.30) Estimat Glomerular Filtration Rate mL/min (>60) Glucose Level 98 MG/DL (74-106) Calcium Level 9.4 MG/DL (8.5-10.1) Herminio Diallo MD Mar 24, 2018 19:32
[2018-03-24 20:00] VITALS: BP 152/88
[2018-03-24] MEDS ORDERED: Warfarin Sodium 4mg GT SCH (20:00)
--- NOTE | 2018-03-24 21:00 | Consultation ---
DATE OF CONSULTATION: 03/24/2018 NEUROLOGY CONSULTATION CONSULTING PHYSICIAN: Yobany Menard M.D. REQUESTING PHYSICIAN: Herminio Diallo M.D. HISTORY: Ms. Danelle Benjamin is an 88-year-old, right-handed, lady, who does have a past history of hypertension, dyslipidemia, hypothyroidism, obsessive compulsive disorder, congestive heart failure, a parkinsonian syndrome, cognitive dysfunction of significant degree, cerebrovascular disease with a right paresis, gait problems that have now progressed to a point that she has been unable to walk for a few years, and episodes of aspiration pneumonia. She was hospitalized on 03/15/2018 for respiratory problems related to a combination of aspiration pneumonia and fluid overload. She has been treated for her problems and has improved. In the interim, she has also had a percutaneous gastrostomy placed because of significant swallowing problems and inability to get enough nutrition. She has been moaning, groaning, and been unable to express herself for the last few days and thus this consultation was requested to evaluate the patient from a neurological point of view. The patient herself is unable to give me any history and it is quite difficult for her to express her feelings and needs. PAST MEDICAL HISTORY: Significant for hypertension, dyslipidemia, hypothyroidism, obsessive-compulsive disorder, congestive heart failure, parkinsonian syndrome, dementia, cerebrovascular disease with right paresis, gait problems, and prior episodes of aspiration pneumonia. FAMILY HISTORY: Unavailable. PERSONAL HISTORY: Home: She lives in a board and intermediate. Work: She is retired. Habits: None. MEDICATIONS: Warfarin, Solu-Medrol, milk of magnesia, mirtazapine 15 mg in the evening, Zetia, vitamin C, Os-Wyatt, multivitamins, Benadryl p.r.n., artificial tears, DSS, Sinemet 25/250 taken at 7:30 and 12:30, pantoprazole, Requip 1 mg taken at 7:30 and 12:30, Synthroid, Zofran, hydralazine, Tylenol, and DuoNeb inhaler. PHYSICAL EXAMINATION: GENERAL: She is a well-developed, cachectic, ill-looking lady, lying in bed, moaning and groaning. VITAL SIGNS: Pulse 77/minute, blood pressure 136/77 mmHg, respirations 23/minute, and temperature 98.2 degrees Fahrenheit. HEAD: Normocephalic and atraumatic. EENT: Examination benign. NECK: No neck rigidity was observed. NEUROLOGIC EXAMINATION: MENTAL STATUS EXAMINATION: She was awake, but not completely alert. She was oriented to self only. She had no idea where she was or what the date was. She was unable to cooperate for further mental status testing. SPEECH: She had a significant dysarthria. LANGUAGE: She had problems with comprehension and expression of language. CRANIAL NERVE EXAMINATION: II: She did blink to threat, but was unable to count fingers accurately. III, IV & : The external ocular movements were full and the pupils 3 mm in diameter and did not react to light. V & VII: The corneal reflex was diminished on the right side compared to the left. In addition, she also had a right seventh central facial paresis. VIII: She seemed to be able to hear and had no nystagmus. IX: The palate moved symmetrically on phonation. X: She had no hoarseness of voice. XI: The sternocleidomastoids and trapezii functioned. XII: The tongue was in the midline without any fasciculations or atrophy. MOTOR SYSTEM: The tone was increased in all four extremities with a combination of rigidity and gegenhalten. Examination of muscle mass revealed generalized muscle wasting. In addition, she also had bilateral ankle cord contractures. Examination of power was exceedingly difficult to perform because of her inability to perform. 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 SENSORY EXAMINATION: She responded appropriately to deep pain in all four extremities. REFLEXES: Trace+ and bilaterally symmetrical at the biceps, triceps, brachioradialis, and knees and 0 at both ankles. The plantar responses were flexor bilaterally. COORDINATION, STANCE & GAIT: Could not be tested. ABNORMAL MOVEMENTS: Tremor (4-5 Hz): G 0/4, Rigidity: G 1/4 Bradykinesia: G 1/4 Hypomimia: G 2/4. DIAGNOSTIC IMPRESSION: 1. Ms. Danelle Benjamin is an 88-year-old, right-handed, lady, with a past history of multiple medical problems as enumerated above, who was hospitalized on 03/15/2018 for respiratory problems related to aspiration pneumonia and fluid overload. She has since been treated for these problems and has improved, but has recently been moaning and groaning and been unable to let her needs to be known. 2. 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 3. Her latest laboratory data revealed that her WBC count was elevated at 12,300. She was mildly anemic with a hemoglobin of 11 G. The chemistry panel revealed that her BUN was elevated at 36 with a normal creatinine at 0.8 and her last proBNP on 03/23/2018 was 2774. 4. 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 5. The moaning and groaning are due to the fact that she is uncomfortable for reasons that she cannot express. RECOMMENDATIONS: 1. Agree with management thus far. 2. Would continue present management. 3. The patient's daughter was made aware that if we do give her any more medicines for her moaning and groaning, we may have to take a higher risk of re-aspiration. 4. The patient will be observed closely and depending on how she fares over the next day or so, further recommendations will be given. Thank you for entrusting me with the care of Ms. Benjamin. I shall follow her with you. Yobany Menard M.D., M.S.P.H. DR: SAVANAH JOB#: [id number] REHANA
--- NOTE | 2018-03-24 21:20 | Pulmonology Progress Note ---
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 -H/O Hip Fx -PD -Dementia -Dsyphagia S/P PEG PLAN: -BiPAP PRN only -Titrate down FiO2 to keep SaO2 > 90% -Optimize pulmonary hygiene/mobilize as tolerated -RTC and PRN HHN's -Decrease SM to 20 IV qD -PRN racemic EPI -Observe off Abx -Monitor volumes and renal function, SLIV, PRN Lasix -GTF's -DVT Px: coumadin -DNAR/DNI D/W daughter D/W RN Subjective Allergies: Coded Allergies: STRAWBERRY (Verified Allergy, Unknown, Rash, 06/29/13) COPIED FROM UNCODED SECTION VALSARTAN (Verified Allergy, Unknown, 03/09/11) Subjective PRATEEK AFVSS on tiffanie TF's d some cough but better no FC Objective Vital Signs Noted General Appearance: no acute distress - on HEENT: normocephalic, atraumatic, anicteric, mucous membranes moist Respiratory/Chest: rhonchi Cardiovascular: normal peripheral pulses, normal rate, regular rhythm Abdomen: normal bowel sounds, soft, non tender, no organomegaly, non distended , other - GT Extremities: no cyanosis, no clubbing, no edema Laboratory Tests 03/22/18 03:30: White Blood Count 12.5H, Red Blood Count 3.66L, Hemoglobin 11.1L, Hematocrit 34.6L, Mean Corpuscular Volume 95, Mean Corpuscular Hemoglobin 30.4, Mean Corpuscular Hemoglobin Concent 32.2, Red Cell Distribution Width 13.9, Platelet Count 106L, Mean Platelet Volume 10.8H, Neutrophils (%) (Auto) , Lymphocytes (% ) (Auto) , Monocytes (%) (Auto) , Eosinophils (%) (Auto) , Basophils (%) (Auto) , Differential Total Cells Counted 100, Neutrophils % (Manual) 93H, Lymphocytes % (Manual) 3L, Monocytes % (Manual) 4, Eosinophils % (Manual) 0, Basophils % ( Manual) 0, Band Neutrophils 0, Platelet Estimate DecreasedL, Platelet Morphology Normal, Red Blood Cell Morphology Normal, Prothrombin Time 14.7H, Prothromb Time International Ratio 1.4H, Sodium Level 145, Potassium Level 3.9, Chloride Level 107, Carbon Dioxide Level 32, Anion Gap 6, Blood Urea Nitrogen 37H, Creatinine 1.0, Estimat Glomerular Filtration Rate , Glucose Level 128H, Calcium Level 9.3, Phosphorus Level 2.4L, Magnesium Level 1.8 Current Medications Medications (Trade) Dose Ordered Sig/Marcel Route PRN Reason Start Time Stop Time Status Last Admin Dose Admin Acetaminophen (Tylenol) 650 mg Q4H PRN GT Mild Pain/Temp > 100.5 03/21/18 04:15 04/19/18 20:14 Albuterol/ Ipratropium (Albuterol/ Ipratropium) 3 ml Q4HRT HHN 03/21/18 03:00 03/25/18 11:29 03/22/18 07:00 Amlodipine Besylate (Norvasc) 2.5 mg DAILY@0930 GT 03/22/18 09:30 04/20/18 09:29 Artificial Tears (Akwa-Tears) 1 drop 0730,1000,1230,1500 BOTH EYES 03/21/18 07:30 04/15/18 07:29 03/21/18 07:47 Ascorbic Acid (Vitamin C) 500 mg DAILY@0930 GT 03/21/18 09:30 04/20/18 09:29 03/22/18 09:32 Calcium Carbonate (Os-Wyatt) 2,500 mg BID@0930,1700 GT 03/21/18 09:30 04/20/18 09:29 03/22/18 09:32 Carbidopa/Levodopa (Sinemet 25/250) 1 tab BID@0730,1230 GT 03/21/18 07:30 04/20/18 07:29 03/22/18 08:12 Dextrose (Dextrose 50%) 25 ml Q30M PRN IV Hypoglycemia 03/21/18 03:30 04/13/18 12:59 Dextrose (Dextrose 50%) 50 ml Q30M PRN IV Hypoglycemia 03/21/18 03:30 04/13/18 12:59 Diphenhydramine HCl (Benadryl) 25 mg Q6H PRN GT Itching 03/21/18 08:30 04/19/18 20:29 Docusate Sodium (Colace) 200 mg DAILY@0730 GT 03/21/18 07:30 04/20/18 07:29 03/22/18 08:11 EZETIMIBE (Zetia) 10 mg DAILY@1700 GT 03/21/18 17:00 04/19/18 20:59 03/21/18 17:25 Haloperidol Lactate 0.5 mg/ Dextrose 55.1 ml @ 220.4 mls/ hr Q6H PRN IVPB Agitation 03/21/18 04:00 04/18/18 21:59 Hydralazine HCl (Apresoline) 5 mg Q4H PRN IV SBP >170 03/21/18 05:00 04/14/18 12:59 Levothyroxine Sodium (Synthroid) 112 mcg DAILY@0630 GT 03/21/18 06:30 04/14/18 06:29 03/22/18 06:02 Magnesium Hydroxide (Mom) 30 ml HSPRN PRN GT Constipation 03/21/18 20:30 04/13/18 20:59 03/22/18 08:12 Methylprednisolone Sodium Succinate (Solu-MEDROL) 20 mg BID IVP 03/21/18 09:00 04/20/18 08:59 03/22/18 09:31 Mirtazapine (Remeron) 15 mg DAILY@1800 GT 03/21/18 18:00 04/19/18 20:59 03/21/18 17:25 Multivitamins (Multivitamins W/ Minerals 15ml Liquid) 15 ml DAILY GT 03/21/18 09:00 04/20/18 08:59 03/22/18 09:31 Ondansetron HCl (Zofran) 4 mg Q6H PRN IVP Nausea & Vomiting 03/21/18 05:30 04/13/18 11:19 Pantoprazole (Protonix) 40 mg DAILY@0730 IV 03/21/18 07:30 04/15/18 07:29 03/22/18 08:12 Racepinephrine (S2) 0.5 ml Q4H PRN HHN STRIDOR 03/21/18 03:30 04/14/18 11:19 Ropinirole HCl (Requip) 1 mg BID@0730,1230 GT 03/21/18 07:30 04/19/18 20:14 03/22/18 08:12 Warfarin Sodium (Coumadin per pharmacy) 1 ea DAILY PRN MISC Per rx protocol 03/21/18 09:00 04/19/18 11:59 Warfarin Sodium (Coumadin) 6 mg ONCE GT 03/22/18 20:00 03/22/18 21:00 Subjective ROS Limited/Unobtainable: No Allergies: Coded Allergies: STRAWBERRY (Verified Allergy, Unknown, Rash, 06/29/13) COPIED FROM UNCODED SECTION VALSARTAN (Verified Allergy, Unknown, 03/09/11) Objective Last 24 Hour Vital Signs Date Time Temp Pulse Resp B/P (MAP) Pulse Ox O2 Delivery O2 Flow Rate FiO2 03/24/18 19:25 76 20 Venturi Mask 8.0 40 03/24/18 19:25 81 20 98 Venturi Mask 8.0 40 03/24/18 19:09 Venturi Mask 8.0 40 03/24/18 19:09 96 Venturi Mask 8.0 40 03/24/18 19:09 72 20 96 Venturi Mask 8.0 40 03/24/18 16:00 99.3 83 26 122/61 (81) 95 03/24/18 16:00 Venturi Mask 8.0 03/24/18 15:17 83 03/24/18 15:08 71 22 96 Venturi Mask 8.0 40 03/24/18 15:01 89 20 94 Venturi Mask 8.0 40 03/24/18 12:00 98.2 79 23 136/77 (96) 92 03/24/18 12:00 77 03/24/18 12:00 Venturi Mask 8.0 03/24/18 10:44 73 26 97 Venturi Mask 8.0 40 03/24/18 10:35 74 22 93 Venturi Mask 8.0 40 03/24/18 08:00 74 03/24/18 08:00 98.4 67 21 138/77 (97) 93 03/24/18 08:00 Venturi Mask 8.0 03/24/18 07:24 Venturi Mask 8.0 40 03/24/18 07:24 62 24 99 Venturi Mask 8.0 40 03/24/18 07:24 95 Venturi Mask 8.0 40 03/24/18 07:15 64 24 95 Venturi Mask 8.0 40 03/24/18 04:00 67 03/24/18 04:00 98.6 71 26 124/84 (97) 93 03/24/18 04:00 Venturi Mask 8.0 03/24/18 03:15 61 19 100 Venturi Mask 8.0 40 03/24/18 03:01 70 19 95 Venturi Mask 8.0 40 03/24/18 00:00 Venturi Mask 8.0 03/24/18 00:00 61 03/24/18 00:00 98.1 65 18 138/71 (93) 93 03/23/18 23:45 72 20 99 Venturi Mask 8.0 40 03/23/18 23:35 67 21 94 Venturi Mask 8.0 40 Intake and Output 03/23/18 03/24/18 19:00 07:00 Intake Total 445 ml 610 ml Output Total 400 ml 500 ml Balance 45 ml 110 ml Free Water 90 ml 170 ml Tube Feeding 355 ml 440 ml Output Urine Total 400 ml 500 ml Laboratory Tests 03/24/18 05:00: White Blood Count 12.3H, Red Blood Count 3.54L, Hemoglobin 11.0L, Hematocrit 33.7L, Mean Corpuscular Volume 95, Mean Corpuscular Hemoglobin 31.0, Mean Corpuscular Hemoglobin Concent 32.6, Red Cell Distribution Width 14.1, Platelet Count 125L, Mean Platelet Volume 11.5H, Neutrophils (%) (Auto) , Lymphocytes (% ) (Auto) , Monocytes (%) (Auto) , Eosinophils (%) (Auto) , Basophils (%) (Auto) , Differential Total Cells Counted 100, Neutrophils % (Manual) 88H, Lymphocytes % (Manual) 7L, Monocytes % (Manual) 3, Eosinophils % (Manual) 1, Basophils % ( Manual) 0, Band Neutrophils 1, Platelet Estimate DecreasedL, Platelet Morphology Normal, Prothrombin Time 19.5H, Prothromb Time International Ratio 1.9H, Sodium Level 142, Potassium Level 4.6, Chloride Level 106, Carbon Dioxide Level 33H, Anion Gap 3L, Blood Urea Nitrogen 36H, Creatinine 0.8, Estimat Glomerular Filtration Rate , Glucose Level 98, Calcium Level 9.4 Current Medications Medications (Trade) Dose Ordered Sig/Marcel Route PRN Reason Start Time Stop Time Status Last Admin Dose Admin Acetaminophen (Tylenol) 650 mg Q4H PRN GT Mild Pain/Temp > 100.5 03/21/18 04:15 04/19/18 20:14 03/24/18 17:31 Albuterol/ Ipratropium (Albuterol/ Ipratropium) 3 ml Q4HRT HHN 03/21/18 03:00 03/25/18 11:29 03/24/18 19:09 Artificial Tears (Akwa-Tears) 1 drop 0730,1000,1230,1500 BOTH EYES 03/21/18 07:30 04/15/18 07:29 03/24/18 15:36 Ascorbic Acid (Vitamin C) 500 mg DAILY@0930 GT 03/21/18 09:30 04/20/18 09:29 03/24/18 08:51 Calcium Carbonate (Os-Wyatt) 2,500 mg BID@0930,1700 GT 03/21/18 09:30 04/20/18 09:29 03/24/18 17:32 Carbidopa/Levodopa (Sinemet 25/250) 1 tab BID@0730,1230 GT 03/21/18 07:30 04/20/18 07:29 03/24/18 12:06 Dextrose (Dextrose 50%) 25 ml Q30M PRN IV Hypoglycemia 03/21/18 03:30 04/13/18 12:59 Dextrose (Dextrose 50%) 50 ml Q30M PRN IV Hypoglycemia 03/21/18 03:30 04/13/18 12:59 Diphenhydramine HCl (Benadryl) 25 mg Q6H PRN GT Itching 03/21/18 08:30 04/19/18 20:29 Docusate Sodium (Colace) 200 mg DAILY@0730 GT 03/21/18 07:30 04/20/18 07:29 03/24/18 07:44 EZETIMIBE (Zetia) 10 mg DAILY@1700 GT 03/21/18 17:00 04/19/18 20:59 03/24/18 17:32 Hydralazine HCl (Apresoline) 5 mg Q4H PRN IV SBP >170 03/21/18 05:00 04/14/18 12:59 Levothyroxine Sodium (Synthroid) 112 mcg DAILY@0630 GT 03/21/18 06:30 04/14/18 06:29 03/24/18 06:35 Magnesium Hydroxide (Mom) 30 ml HSPRN PRN GT Constipation 03/21/18 20:30 04/13/18 20:59 03/22/18 08:12 Methylprednisolone Sodium Succinate (Solu-MEDROL) 20 mg DAILY IVP 03/23/18 09:00 04/20/18 08:59 03/24/18 08:50 Mirtazapine (Remeron) 15 mg DAILY@1800 GT 03/21/18 18:00 04/19/18 20:59 03/24/18 17:32 Multivitamins (Multivitamins W/ Minerals 15ml Liquid) 15 ml DAILY GT 03/21/18 09:00 04/20/18 08:59 03/24/18 08:51 Ondansetron HCl (Zofran) 4 mg Q6H PRN IVP Nausea & Vomiting 03/21/18 05:30 04/13/18 11:19 Pantoprazole (Protonix) 40 mg DAILY@0730 IV 03/21/18 07:30 04/15/18 07:29 03/24/18 07:44 Racepinephrine (S2) 0.5 ml Q4H PRN HHN STRIDOR 03/21/18 03:30 04/14/18 11:19 Ropinirole HCl (Requip) 1 mg BID@0730,1230 GT 03/21/18 07:30 04/19/18 20:14 03/24/18 12:06 Warfarin Sodium (Coumadin per pharmacy) 1 ea DAILY PRN MISC Per rx protocol 03/21/18 09:00 04/19/18 11:59 Warfarin Sodium (Coumadin) 4 mg ONCE GT 03/24/18 20:00 03/24/18 22:00 03/24/18 20:39 Nomi Cruz MD Mar 24, 2018 21:20
[2018-03-25] VITALS: BP 89/51
[2018-03-25] MEDS: Albuterol/Ipratropium 3ml neb HHN SCH ×3 (03:09→11:21)
[2018-03-25 04:00] VITALS: BP 135/88
[2018-03-25 08:00] VITALS: BP 148/83
[2018-03-25] MEDS: Pantoprazole Inj IV SCH (08:12)
[2018-03-25] MEDS: Solu-MEDROL 40mg Inj IVP SCH (08:12)
[2018-03-25] MEDS: Multivitamins W/Minerals 15 ML UDC GT SCH (08:12)
[2018-03-25] MEDS: Docusate 100mg/10ml Liq GT SCH (08:13)
[2018-03-25] MEDS: Levodopa/Carbidopa 25/250 tab GT SCH ×2 (08:13→12:24)
[2018-03-25] MEDS: Artificial Tears 1.4% Op Soln BOTH EYES SCH ×4 (08:13→15:00)
[2018-03-25] MEDS: Ascorbic Acid 500mg tab GT SCH (09:27)
[2018-03-25 09:33] LABS: INR 2.2 (0.9-1.1)
--- NOTE | 2018-03-25 11:51 | General Progress Note ---
Assessment/Plan Problem List: (1) S/P percutaneous endoscopic gastrostomy (PEG) tube placement ICD Codes: Z93.1 - Gastrostomy status SNOMED: 477358304 (2) Chronic diastolic CHF (congestive heart failure) ICD Codes: I50.32 - Chronic diastolic CHF (congestive heart failure) SNOMED: 531505325 (3) History of pulmonary embolism ICD Codes: Z86.711 - History of pulmonary embolism SNOMED: 144157228 (4) Failure to thrive SNOMED: 55468497 (5) Dysphasia ICD Codes: R47.02 - Dysphasia SNOMED: 90188622 (6) Hiatal hernia ICD Codes: K44.9 - Diaphragmatic hernia without obstruction or gangrene SNOMED: 20576539 Assessment/Plan Assessment/Plan SUMMARY OF FINDINGS: 1. Large hiatal hernia. 2. Gastritis. 3. Status post successful PEG placement. RECOMMENDATIONS: Abdominal binder. Elevate head of the bed at all times. G-tube flush. G-tube care. GTFs per RD to goal abx Reglan as needed for GI motility supportive car add miralax Subjective ROS Limited/Unobtainable: No Allergies: Coded Allergies: STRAWBERRY (Verified Allergy, Unknown, Rash, 06/29/13) COPIED FROM UNCODED SECTION VALSARTAN (Verified Allergy, Unknown, 03/09/11) Objective Last 24 Hour Vital Signs Date Time Temp Pulse Resp B/P (MAP) Pulse Ox O2 Delivery O2 Flow Rate FiO2 03/25/18 11:39 73 19 99 Venturi Mask 10.0 45 03/25/18 11:22 65 24 99 Venturi Mask 10.0 45 03/25/18 08:30 72 19 99 Bi-pap 50 03/25/18 08:17 Bi-pap 50 03/25/18 08:17 97 Bi-pap 50 03/25/18 08:16 65 28 99 Bi-pap 50 03/25/18 08:00 99.4 65 25 148/83 (104) 96 03/25/18 08:00 Bi-pap 03/25/18 07:59 65 03/25/18 06:35 68 25 98 Facial 50 03/25/18 05:36 69 24 98 Facial 50 03/25/18 04:00 65 03/25/18 04:00 98.2 78 15 135/88 (104) 100 03/25/18 04:00 Bi-pap 03/25/18 03:22 64 19 99 Bi-pap 50 03/25/18 03:09 64 20 99 Bi-pap 50 03/25/18 03:09 64 20 99 Facial 50 03/25/18 01:05 66 23 99 Facial 70 03/25/18 00:00 98.7 75 24 89/51 (64) 98 03/25/18 00:00 74 03/25/18 00:00 Venturi Mask 8.0 03/24/18 22:58 85 26 96 Bi-pap 100 03/24/18 22:44 92 24 97 Facial 100 03/24/18 22:44 92 24 97 Bi-pap 100 03/24/18 20:00 Venturi Mask 8.0 03/24/18 20:00 72 03/24/18 20:00 97.9 87 27 152/88 (109) 91 03/24/18 19:25 76 20 Venturi Mask 8.0 40 03/24/18 19:25 81 20 98 Venturi Mask 8.0 40 03/24/18 19:09 Venturi Mask 8.0 40 03/24/18 19:09 96 Venturi Mask 8.0 40 03/24/18 19:09 72 20 96 Venturi Mask 8.0 40 03/24/18 16:00 99.3 83 26 122/61 (81) 95 03/24/18 16:00 Venturi Mask 8.0 03/24/18 15:17 83 03/24/18 15:08 71 22 96 Venturi Mask 8.0 40 03/24/18 15:01 89 20 94 Venturi Mask 8.0 40 03/24/18 12:00 98.2 79 23 136/77 (96) 92 03/24/18 12:00 77 03/24/18 12:00 Venturi Mask 8.0 Intake and Output 03/24/18 03/25/18 18:59 06:59 Intake Total 670 ml 500 ml Output Total 300 ml 300 ml Balance 370 ml 200 ml Free Water 120 ml Tube Feeding 550 ml 500 ml Output Urine Total 300 ml 300 ml Laboratory Tests 03/25/18 06:27: Prothrombin Time 22.2H, Prothromb Time International Ratio 2.2H Height (Feet): 4 Height (Inches): 4.00 Weight (Pounds): 95 General Appearance: confused EENT: normal ENT inspection Neck: supple Cardiovascular: normal rate Respiratory/Chest: decreased breath sounds Abdomen: normal bowel sounds, non tender, soft Extremities: non-tender Chuck Horta MD Mar 25, 2018 11:51
[2018-03-25 12:00] VITALS: BP 132/60
[2018-03-25] MEDS: Acetaminophen 650mg/20.3ml GT PRN (12:25)
--- NOTE | 2018-03-25 13:57 | Cardiology Progress Note ---
Assessment/Plan Assessment/Plan 1. Bronchospasm/stridor seemed to have resolved. 2. History of Parkinson's. 3. Hypertension history. 4. Dementia. 5. History of deep venous thrombosis and pulmonary embolism. 6. Osteoporosis. 7. Diastolic dysfunction. 8. Hyperlipidemia. s/p peg prn bipap steroid taper she looks comfortable at the moment but is agitated on Coumadin feedign via peg off ivf off abx bp look stable off norvasc cxr noted off haldol appreciate neuro input holding off on diuretics has rhonchi still need pulm toilette d/w dtr about LTACH they have visited [facility] today will d/w dr lynch Subjective ROS Limited/Unobtainable: Yes Cardiovascular: Reports: chest pain Subjective calmer Objective Last 24 Hour Vital Signs Date Time Temp Pulse Resp B/P (MAP) Pulse Ox O2 Delivery O2 Flow Rate FiO2 03/25/18 11:39 73 19 99 Venturi Mask 10.0 45 03/25/18 11:22 65 24 99 Venturi Mask 10.0 45 03/25/18 08:30 72 19 99 Bi-pap 50 03/25/18 08:17 Bi-pap 50 03/25/18 08:17 97 Bi-pap 50 03/25/18 08:16 65 28 99 Bi-pap 50 03/25/18 08:00 99.4 65 25 148/83 (104) 96 03/25/18 08:00 Bi-pap 03/25/18 07:59 65 03/25/18 06:35 68 25 98 Facial 50 03/25/18 05:36 69 24 98 Facial 50 03/25/18 04:00 65 03/25/18 04:00 98.2 78 15 135/88 (104) 100 03/25/18 04:00 Bi-pap 03/25/18 03:22 64 19 99 Bi-pap 50 03/25/18 03:09 64 20 99 Bi-pap 50 03/25/18 03:09 64 20 99 Facial 50 03/25/18 01:05 66 23 99 Facial 70 03/25/18 00:00 98.7 75 24 89/51 (64) 98 03/25/18 00:00 74 03/25/18 00:00 Venturi Mask 8.0 03/24/18 22:58 85 26 96 Bi-pap 100 03/24/18 22:44 92 24 97 Facial 100 03/24/18 22:44 92 24 97 Bi-pap 100 03/24/18 20:00 Venturi Mask 8.0 03/24/18 20:00 72 03/24/18 20:00 97.9 87 27 152/88 (109) 91 03/24/18 19:25 76 20 Venturi Mask 8.0 40 03/24/18 19:25 81 20 98 Venturi Mask 8.0 40 03/24/18 19:09 Venturi Mask 8.0 40 03/24/18 19:09 96 Venturi Mask 8.0 40 03/24/18 19:09 72 20 96 Venturi Mask 8.0 40 03/24/18 16:00 99.3 83 26 122/61 (81) 95 03/24/18 16:00 Venturi Mask 8.0 03/24/18 15:17 83 03/24/18 15:08 71 22 96 Venturi Mask 8.0 40 03/24/18 15:01 89 20 94 Venturi Mask 8.0 40 General Appearance: no apparent distress, alert - intermitently Neck: supple Cardiovascular: normal rate, regular rhythm Respiratory/Chest: rhonchi - bilaterally Abdomen: normal bowel sounds, non tender, soft Extremities: no swelling Intake and Output 03/24/18 03/25/18 18:59 06:59 Intake Total 670 ml 500 ml Output Total 300 ml 300 ml Balance 370 ml 200 ml Free Water 120 ml Tube Feeding 550 ml 500 ml Output Urine Total 300 ml 300 ml Laboratory Tests Test 03/25/18 06:27 Prothrombin Time 22.2 SEC (9.30-11.50) H Prothromb Time International Ratio 2.2 (0.9-1.1) H Herminio Diallo MD Mar 25, 2018 13:57
--- NOTE | 2018-03-25 14:07 | Pulmonology Progress Note ---
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 -H/O Hip Fx -PD -Dementia -Dsyphagia S/P PEG PLAN: -BiPAP PRN only -Titrate down FiO2 to keep SaO2 > 90% -Optimize pulmonary hygiene/mobilize as tolerated -RTC and PRN HHN's -Decrease SM to 20 IV qD -PRN racemic EPI -Observe off Abx -Monitor volumes and renal function, SLIV, PRN Lasix -GTF's -DVT Px: coumadin -DNAR/DNI D/W daughter D/W RN Subjective Allergies: Coded Allergies: STRAWBERRY (Verified Allergy, Unknown, Rash, 06/29/13) COPIED FROM UNCODED SECTION VALSARTAN (Verified Allergy, Unknown, 03/09/11) Subjective PRATEEK AFVSS on tiffanie TF's d some cough but better no FC Objective Vital Signs Noted General Appearance: no acute distress - on HEENT: normocephalic, atraumatic, anicteric, mucous membranes moist Respiratory/Chest: rhonchi Cardiovascular: normal peripheral pulses, normal rate, regular rhythm Abdomen: normal bowel sounds, soft, non tender, no organomegaly, non distended , other - GT Extremities: no cyanosis, no clubbing, no edema Laboratory Tests 03/22/18 03:30: White Blood Count 12.5H, Red Blood Count 3.66L, Hemoglobin 11.1L, Hematocrit 34.6L, Mean Corpuscular Volume 95, Mean Corpuscular Hemoglobin 30.4, Mean Corpuscular Hemoglobin Concent 32.2, Red Cell Distribution Width 13.9, Platelet Count 106L, Mean Platelet Volume 10.8H, Neutrophils (%) (Auto) , Lymphocytes (% ) (Auto) , Monocytes (%) (Auto) , Eosinophils (%) (Auto) , Basophils (%) (Auto) , Differential Total Cells Counted 100, Neutrophils % (Manual) 93H, Lymphocytes % (Manual) 3L, Monocytes % (Manual) 4, Eosinophils % (Manual) 0, Basophils % ( Manual) 0, Band Neutrophils 0, Platelet Estimate DecreasedL, Platelet Morphology Normal, Red Blood Cell Morphology Normal, Prothrombin Time 14.7H, Prothromb Time International Ratio 1.4H, Sodium Level 145, Potassium Level 3.9, Chloride Level 107, Carbon Dioxide Level 32, Anion Gap 6, Blood Urea Nitrogen 37H, Creatinine 1.0, Estimat Glomerular Filtration Rate , Glucose Level 128H, Calcium Level 9.3, Phosphorus Level 2.4L, Magnesium Level 1.8 Current Medications Medications (Trade) Dose Ordered Sig/Marcel Route PRN Reason Start Time Stop Time Status Last Admin Dose Admin Acetaminophen (Tylenol) 650 mg Q4H PRN GT Mild Pain/Temp > 100.5 03/21/18 04:15 04/19/18 20:14 Albuterol/ Ipratropium (Albuterol/ Ipratropium) 3 ml Q4HRT HHN 03/21/18 03:00 03/25/18 11:29 03/22/18 07:00 Amlodipine Besylate (Norvasc) 2.5 mg DAILY@0930 GT 03/22/18 09:30 04/20/18 09:29 Artificial Tears (Akwa-Tears) 1 drop 0730,1000,1230,1500 BOTH EYES 03/21/18 07:30 04/15/18 07:29 03/21/18 07:47 Ascorbic Acid (Vitamin C) 500 mg DAILY@0930 GT 03/21/18 09:30 04/20/18 09:29 03/22/18 09:32 Calcium Carbonate (Os-Wyatt) 2,500 mg BID@0930,1700 GT 03/21/18 09:30 04/20/18 09:29 03/22/18 09:32 Carbidopa/Levodopa (Sinemet 25/250) 1 tab BID@0730,1230 GT 03/21/18 07:30 04/20/18 07:29 03/22/18 08:12 Dextrose (Dextrose 50%) 25 ml Q30M PRN IV Hypoglycemia 03/21/18 03:30 04/13/18 12:59 Dextrose (Dextrose 50%) 50 ml Q30M PRN IV Hypoglycemia 03/21/18 03:30 04/13/18 12:59 Diphenhydramine HCl (Benadryl) 25 mg Q6H PRN GT Itching 03/21/18 08:30 04/19/18 20:29 Docusate Sodium (Colace) 200 mg DAILY@0730 GT 03/21/18 07:30 04/20/18 07:29 03/22/18 08:11 EZETIMIBE (Zetia) 10 mg DAILY@1700 GT 03/21/18 17:00 04/19/18 20:59 03/21/18 17:25 Haloperidol Lactate 0.5 mg/ Dextrose 55.1 ml @ 220.4 mls/ hr Q6H PRN IVPB Agitation 03/21/18 04:00 04/18/18 21:59 Hydralazine HCl (Apresoline) 5 mg Q4H PRN IV SBP >170 03/21/18 05:00 04/14/18 12:59 Levothyroxine Sodium (Synthroid) 112 mcg DAILY@0630 GT 03/21/18 06:30 04/14/18 06:29 03/22/18 06:02 Magnesium Hydroxide (Mom) 30 ml HSPRN PRN GT Constipation 03/21/18 20:30 04/13/18 20:59 03/22/18 08:12 Methylprednisolone Sodium Succinate (Solu-MEDROL) 20 mg BID IVP 03/21/18 09:00 04/20/18 08:59 03/22/18 09:31 Mirtazapine (Remeron) 15 mg DAILY@1800 GT 03/21/18 18:00 04/19/18 20:59 03/21/18 17:25 Multivitamins (Multivitamins W/ Minerals 15ml Liquid) 15 ml DAILY GT 03/21/18 09:00 04/20/18 08:59 03/22/18 09:31 Ondansetron HCl (Zofran) 4 mg Q6H PRN IVP Nausea & Vomiting 03/21/18 05:30 04/13/18 11:19 Pantoprazole (Protonix) 40 mg DAILY@0730 IV 03/21/18 07:30 04/15/18 07:29 03/22/18 08:12 Racepinephrine (S2) 0.5 ml Q4H PRN HHN STRIDOR 03/21/18 03:30 04/14/18 11:19 Ropinirole HCl (Requip) 1 mg BID@0730,1230 GT 03/21/18 07:30 04/19/18 20:14 03/22/18 08:12 Warfarin Sodium (Coumadin per pharmacy) 1 ea DAILY PRN MISC Per rx protocol 03/21/18 09:00 04/19/18 11:59 Warfarin Sodium (Coumadin) 6 mg ONCE GT 03/22/18 20:00 03/22/18 21:00 Subjective ROS Limited/Unobtainable: No Allergies: Coded Allergies: STRAWBERRY (Verified Allergy, Unknown, Rash, 06/29/13) COPIED FROM UNCODED SECTION VALSARTAN (Verified Allergy, Unknown, 03/09/11) Objective Last 24 Hour Vital Signs Date Time Temp Pulse Resp B/P (MAP) Pulse Ox O2 Delivery O2 Flow Rate FiO2 03/25/18 11:51 74 03/25/18 11:39 73 19 99 Venturi Mask 10.0 45 03/25/18 11:22 65 24 99 Venturi Mask 10.0 45 03/25/18 08:30 72 19 99 Bi-pap 50 03/25/18 08:17 Bi-pap 50 03/25/18 08:17 97 Bi-pap 50 03/25/18 08:16 65 28 99 Bi-pap 50 03/25/18 08:00 99.4 65 25 148/83 (104) 96 03/25/18 08:00 Bi-pap 03/25/18 07:59 65 03/25/18 06:35 68 25 98 Facial 50 03/25/18 05:36 69 24 98 Facial 50 03/25/18 04:00 65 03/25/18 04:00 98.2 78 15 135/88 (104) 100 03/25/18 04:00 Bi-pap 03/25/18 03:22 64 19 99 Bi-pap 50 03/25/18 03:09 64 20 99 Bi-pap 50 03/25/18 03:09 64 20 99 Facial 50 03/25/18 01:05 66 23 99 Facial 70 03/25/18 00:00 98.7 75 24 89/51 (64) 98 03/25/18 00:00 74 03/25/18 00:00 Venturi Mask 8.0 03/24/18 22:58 85 26 96 Bi-pap 100 03/24/18 22:44 92 24 97 Facial 100 03/24/18 22:44 92 24 97 Bi-pap 100 03/24/18 20:00 Venturi Mask 8.0 03/24/18 20:00 72 03/24/18 20:00 97.9 87 27 152/88 (109) 91 03/24/18 19:25 76 20 Venturi Mask 8.0 40 03/24/18 19:25 81 20 98 Venturi Mask 8.0 40 03/24/18 19:09 Venturi Mask 8.0 40 03/24/18 19:09 96 Venturi Mask 8.0 40 03/24/18 19:09 72 20 96 Venturi Mask 8.0 40 03/24/18 16:00 99.3 83 26 122/61 (81) 95 03/24/18 16:00 Venturi Mask 8.0 03/24/18 15:17 83 03/24/18 15:08 71 22 96 Venturi Mask 8.0 40 03/24/18 15:01 89 20 94 Venturi Mask 8.0 40 Intake and Output 03/24/18 03/25/18 18:59 06:59 Intake Total 670 ml 500 ml Output Total 300 ml 300 ml Balance 370 ml 200 ml Free Water 120 ml Tube Feeding 550 ml 500 ml Output Urine Total 300 ml 300 ml Laboratory Tests 03/25/18 06:27: Prothrombin Time 22.2H, Prothromb Time International Ratio 2.2H Current Medications Medications (Trade) Dose Ordered Sig/Marcel Route PRN Reason Start Time Stop Time Status Last Admin Dose Admin Acetaminophen (Tylenol) 650 mg Q4H PRN GT Mild Pain/Temp > 100.5 03/21/18 04:15 04/19/18 20:14 03/25/18 12:25 Artificial Tears (Akwa-Tears) 1 drop 0730,1000,1230,1500 BOTH EYES 03/21/18 07:30 04/15/18 07:29 03/25/18 08:13 Ascorbic Acid (Vitamin C) 500 mg DAILY@0930 GT 03/21/18 09:30 04/20/18 09:29 03/25/18 09:27 Calcium Carbonate (Os-Wyatt) 2,500 mg BID@0930,1700 GT 03/21/18 09:30 04/20/18 09:29 03/25/18 09:27 Carbidopa/Levodopa (Sinemet 25/250) 1 tab BID@0730,1230 GT 03/21/18 07:30 04/20/18 07:29 03/25/18 12:24 Dextrose (Dextrose 50%) 25 ml Q30M PRN IV Hypoglycemia 03/21/18 03:30 04/13/18 12:59 Dextrose (Dextrose 50%) 50 ml Q30M PRN IV Hypoglycemia 03/21/18 03:30 04/13/18 12:59 Diphenhydramine HCl (Benadryl) 25 mg Q6H PRN GT Itching 03/21/18 08:30 04/19/18 20:29 Docusate Sodium (Colace) 200 mg DAILY@0730 GT 03/21/18 07:30 04/20/18 07:29 03/25/18 08:13 EZETIMIBE (Zetia) 10 mg DAILY@1700 GT 03/21/18 17:00 04/19/18 20:59 03/24/18 17:32 Hydralazine HCl (Apresoline) 5 mg Q4H PRN IV SBP >170 03/21/18 05:00 04/14/18 12:59 Levothyroxine Sodium (Synthroid) 112 mcg DAILY@0630 GT 03/21/18 06:30 04/14/18 06:29 03/25/18 06:03 Magnesium Hydroxide (Mom) 30 ml HSPRN PRN GT Constipation 03/21/18 20:30 04/13/18 20:59 03/22/18 08:12 Methylprednisolone Sodium Succinate (Solu-MEDROL) 20 mg DAILY IVP 03/23/18 09:00 04/20/18 08:59 03/25/18 08:12 Mirtazapine (Remeron) 15 mg DAILY@1800 GT 03/21/18 18:00 04/19/18 20:59 03/24/18 17:32 Multivitamins (Multivitamins W/ Minerals 15ml Liquid) 15 ml DAILY GT 03/21/18 09:00 04/20/18 08:59 03/25/18 08:12 Ondansetron HCl (Zofran) 4 mg Q6H PRN IVP Nausea & Vomiting 03/21/18 05:30 04/13/18 11:19 Pantoprazole (Protonix) 40 mg DAILY@0730 IV 03/21/18 07:30 04/15/18 07:29 03/25/18 08:12 Polyethylene Glycol (Miralax) 17 gm BEDTIME ORAL 03/25/18 21:00 04/24/18 20:59 Racepinephrine (S2) 0.5 ml Q4H PRN HHN STRIDOR 03/21/18 03:30 04/14/18 11:19 Ropinirole HCl (Requip) 1 mg BID@0730,1230 GT 03/21/18 07:30 04/19/18 20:14 03/25/18 12:24 Warfarin Sodium (Coumadin per pharmacy) 1 ea DAILY PRN MISC Per rx protocol 03/21/18 09:00 04/19/18 11:59 Warfarin Sodium (Coumadin) 4 mg ONCE GT 03/25/18 20:00 03/25/18 21:00 Nomi Cruz MD Mar 25, 2018 14:07
--- NOTE | 2018-03-25 15:14 | Neurology Progress Note ---
Interim History Interim History Interim History Ms. Benjamin feels unwell. She is unable to explain to me in what way she feels unwell. She however says she is comfortable. She is not moaning or groaning today. She was breathing rapidly but denied any shortness of breath. She continues to be cognitively impoverished. She continues to be generally weak. She denies any new neurologic problems. Review of Systems Neuro Review of Systems Benign. Objective Physical Exam Last Vital Signs Date Time Temp Pulse Resp B/P (MAP) Pulse Ox O2 Delivery O2 Flow Rate FiO2 03/25/18 12:00 97.8 81 18 132/60 (84) 97 03/25/18 11:39 Venturi Mask 10.0 45 Laboratory Tests Test 03/25/18 06:27 Prothrombin Time 22.2 SEC (9.30-11.50) H Prothromb Time International Ratio 2.2 (0.9-1.1) H Neurologic Exam Objective PHYSICAL EXAMINATION: GENERAL: She is a well-developed, cachectic, ill-looking, lady, lying in bed, in no distress. HEAD: Normocephalic and atraumatic. EENT: Examination benign. NECK: No neck rigidity was observed. NEUROLOGIC EXAMINATION: MENTAL STATUS EXAMINATION: She was awake, but not completely alert. She was oriented to self only. She had no idea where she was or what the date was. She was unable to cooperate for further mental status testing. SPEECH: She had a significant dysarthria. LANGUAGE: She had problems with comprehension and expression of language. CRANIAL NERVE EXAMINATION: II: She did blink to threat, but was unable to count fingers accurately. III, IV & : The external ocular movements were full and the pupils 3 mm in diameter and did not react to light. V & VII: The corneal reflex was diminished on the right side compared to the left. In addition, she also had a right seventh central facial paresis. VIII: She seemed to be able to hear and had no nystagmus. IX: The palate moved symmetrically on phonation. X: She had no hoarseness of voice. XI: The sternocleidomastoids and trapezii functioned. XII: The tongue was in the midline without any fasciculations or atrophy. MOTOR SYSTEM: The tone was increased in all four extremities with a combination of rigidity and gegenhalten. Examination of muscle mass revealed generalized muscle wasting. In addition, she also had bilateral ankle cord contractures. Examination of power was exceedingly difficult to perform because of her inability to perform. 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 SENSORY EXAMINATION: She responded appropriately to deep pain in all four extremities. REFLEXES: Trace+ and bilaterally symmetrical at the biceps, triceps, brachioradialis, and knees and 0 at both ankles. The plantar responses were flexor bilaterally. COORDINATION, STANCE & GAIT: Could not be tested. ABNORMAL MOVEMENTS: Tremor (4-5 Hz): G 0/4, Rigidity: G 1/4 Bradykinesia: G 1/4 Hypomimia: G 2/4. Impression/Recommendations Diagnostic Impression 1. Ms. Danlele Benjamin is an 88-year-old, right-handed, lady, with a past history of multiple medical problems, who was hospitalized on 2018 for respiratory problems related to aspiration pneumonia and fluid overload. She has since been treated for these problems and has improved, but has recently been moaning and groaning and been unable to let her needs to be known. 2. She feels unwell due to reasons unknown to her. She however says she is comfortable. She is not moaning or groaning today. She was breathing rapidly but denied any shortness of breath. She continues to be cognitively impoverished. She continues to be generally weak. She denies any new neurologic problems. 3. 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 4. Her latest laboratory data on my initial evaluation revealed that her WBC count was elevated at 12,300. She was mildly anemic with a hemoglobin of 11 G. The chemistry panel revealed that her BUN was elevated at 36 with a normal creatinine at 0.8 and her last proBNP on 03/23/2018 was 2774. 5. 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 6. The moaning and groaning were due to the fact that she was uncomfortable for reasons that she could not express. However, she says she is comfortable today and the moaning and groaning has stopped. Recommendations 1. Continue present management. 2. Keep comfortable. 3. Observe closely. Yobany Menard M.D., M.S.P.H. Yobany Menard MD Mar 25, 2018 15:14
[2018-03-25 16:00] VITALS: BP 148/83
[2018-03-25 20:00] VITALS: BP 156/77
[2018-03-25] MEDS ORDERED: Warfarin Sodium 4mg GT SCH (20:00)
[2018-03-25] MEDS: Miralax 17gm pkt ORAL SCH (20:28)
[2018-03-26] VITALS: BP 136/64
[2018-03-26 04:00] VITALS: BP 153/77
[2018-03-26] MEDS: Levodopa/Carbidopa 25/250 tab GT SCH ×2 (06:28→11:47)
[2018-03-26] MEDS: Pantoprazole Inj IV SCH (06:29)
[2018-03-26] MEDS: Artificial Tears 1.4% Op Soln BOTH EYES SCH ×4 (06:29→14:01)
[2018-03-26] MEDS: Docusate 100mg/10ml Liq GT SCH (06:29)
[2018-03-26 08:00] VITALS: BP 109/53
[2018-03-26] MEDS: Solu-MEDROL 40mg Inj IVP SCH (09:09)
[2018-03-26] MEDS: Multivitamins W/Minerals 15 ML UDC GT SCH (09:09)
[2018-03-26] MEDS: Ascorbic Acid 500mg tab GT SCH (09:09)
[2018-03-26 12:00] VITALS: BP 113/74
--- NOTE | 2018-03-26 12:07 | General Progress Note ---
Assessment/Plan Problem List: (1) S/P percutaneous endoscopic gastrostomy (PEG) tube placement ICD Codes: Z93.1 - Gastrostomy status SNOMED: 339692187 (2) Chronic diastolic CHF (congestive heart failure) ICD Codes: I50.32 - Chronic diastolic CHF (congestive heart failure) SNOMED: 129799191 (3) History of pulmonary embolism ICD Codes: Z86.711 - History of pulmonary embolism SNOMED: 608555029 (4) Failure to thrive SNOMED: 51248190 (5) Dysphasia ICD Codes: R47.02 - Dysphasia SNOMED: 49808866 (6) Hiatal hernia ICD Codes: K44.9 - Diaphragmatic hernia without obstruction or gangrene SNOMED: 17278307 Assessment/Plan Assessment/Plan SUMMARY OF FINDINGS: 1. Large hiatal hernia. 2. Gastritis. 3. Status post successful PEG placement. RECOMMENDATIONS: Abdominal binder. Elevate head of the bed at all times. G-tube flush. G-tube care. GTFs per RD to goal abx Reglan as needed for GI motility supportive car miralax Subjective ROS Limited/Unobtainable: No Allergies: Coded Allergies: STRAWBERRY (Verified Allergy, Unknown, Rash, 06/29/13) COPIED FROM UNCODED SECTION VALSARTAN (Verified Allergy, Unknown, 03/09/11) Objective Last 24 Hour Vital Signs Date Time Temp Pulse Resp B/P (MAP) Pulse Ox O2 Delivery O2 Flow Rate FiO2 03/26/18 10:47 64 25 95 Facial 50 03/26/18 08:38 60 23 94 Facial 50 03/26/18 08:00 50 03/26/18 08:00 Bi-pap 03/26/18 08:00 97.9 70 24 109/53 (71) 95 03/26/18 08:00 69 03/26/18 07:57 61 21 93 Facial 50 03/26/18 07:56 Bi-pap 50 03/26/18 07:56 93 Bi-pap 50 03/26/18 04:57 55 22 97 Facial 50 03/26/18 04:00 50 03/26/18 04:00 Bi-pap 03/26/18 04:00 97.8 51 22 153/77 (102) 99 03/26/18 03:47 48 03/26/18 02:59 52 20 99 Facial 50 03/26/18 01:00 55 18 98 Facial 50 03/26/18 00:00 97.8 51 17 136/64 (88) 99 03/26/18 00:00 50 03/26/18 00:00 Bi-pap 03/25/18 23:34 48 03/25/18 22:54 53 19 100 Facial 50 03/25/18 20:58 57 20 100 Facial 50 03/25/18 20:00 98.1 64 22 156/77 (103) 97 03/25/18 20:00 Bi-pap 03/25/18 20:00 50 03/25/18 19:31 98 Bi-pap 50 03/25/18 19:31 Bi-pap 50 03/25/18 19:26 62 03/25/18 18:44 64 25 99 Facial 50 03/25/18 16:58 63 20 96 Facial 50 03/25/18 16:05 65 03/25/18 16:01 73 28 94 Facial 50 03/25/18 16:00 99.4 65 25 148/83 (104) 96 03/25/18 15:50 Bi-pap 03/25/18 15:35 72 03/25/18 14:30 Non-Rebreather 15.0 Intake and Output 03/25/18 03/26/18 19:00 07:00 Intake Total 410 ml 530 ml Output Total 600 ml 300 ml Balance -190 ml 230 ml Free Water 60 ml 130 ml Tube Feeding 350 ml 400 ml Output Urine Total 600 ml 300 ml Laboratory Tests 03/26/18 06:49: Prothrombin Time 20.1H, Prothromb Time International Ratio 2.0H Height (Feet): 4 Height (Inches): 4.00 Weight (Pounds): 93 General Appearance: moderate distress EENT: normal ENT inspection Neck: supple Cardiovascular: tachycardia Respiratory/Chest: decreased breath sounds Abdomen: normal bowel sounds, non tender, soft Extremities: non-tender Chuck Horta MD Mar 26, 2018 12:07
--- NOTE | 2018-03-26 14:07 | Cardiology Progress Note ---
Assessment/Plan Assessment/Plan 1. Bronchospasm/stridor seemed to have resolved. 2. History of Parkinson's. 3. Hypertension history. 4. Dementia. 5. History of deep venous thrombosis and pulmonary embolism. 6. Osteoporosis. 7. Diastolic dysfunction. 8. Hyperlipidemia. s/p peg prn bipap steroid taper she looks comfortable at the moment but is agitated on Coumadin feedign via peg off ivf off abx bp look stable off norvasc appreciate neuro input holding off on diuretics need pulm toilette on 03/25 d/w dtr about LTACH they have visited [facility] await social work to arrange she sounds and looks better ttoday Subjective ROS Limited/Unobtainable: Yes Subjective calmer Objective Last 24 Hour Vital Signs Date Time Temp Pulse Resp B/P (MAP) Pulse Ox O2 Delivery O2 Flow Rate FiO2 03/26/18 12:59 67 21 96 Facial 50 03/26/18 12:00 Bi-pap 03/26/18 12:00 50 03/26/18 12:00 62 03/26/18 12:00 98.6 65 17 113/74 (87) 100 03/26/18 10:47 64 25 95 Facial 50 03/26/18 08:38 60 23 94 Facial 50 03/26/18 08:00 50 03/26/18 08:00 Bi-pap 03/26/18 08:00 97.9 70 24 109/53 (71) 95 03/26/18 08:00 69 03/26/18 07:57 61 21 93 Facial 50 03/26/18 07:56 Bi-pap 50 03/26/18 07:56 93 Bi-pap 50 03/26/18 04:57 55 22 97 Facial 50 03/26/18 04:00 50 03/26/18 04:00 Bi-pap 03/26/18 04:00 97.8 51 22 153/77 (102) 99 03/26/18 03:47 48 03/26/18 02:59 52 20 99 Facial 50 03/26/18 01:00 55 18 98 Facial 50 03/26/18 00:00 97.8 51 17 136/64 (88) 99 03/26/18 00:00 50 03/26/18 00:00 Bi-pap 03/25/18 23:34 48 03/25/18 22:54 53 19 100 Facial 50 03/25/18 20:58 57 20 100 Facial 50 03/25/18 20:00 98.1 64 22 156/77 (103) 97 03/25/18 20:00 Bi-pap 03/25/18 20:00 50 03/25/18 19:31 98 Bi-pap 50 03/25/18 19:31 Bi-pap 50 03/25/18 19:26 62 03/25/18 18:44 64 25 99 Facial 50 03/25/18 16:58 63 20 96 Facial 50 03/25/18 16:05 65 03/25/18 16:01 73 28 94 Facial 50 03/25/18 16:00 99.4 65 25 148/83 (104) 96 03/25/18 15:50 Bi-pap 03/25/18 15:35 72 03/25/18 14:30 Non-Rebreather 15.0 General Appearance: patient on isolation, other - bipapa Cardiovascular: normal rate, regular rhythm Respiratory/Chest: lungs clear - on bipap Abdomen: non tender, soft Extremities: non-tender Intake and Output 03/25/18 03/26/18 19:00 07:00 Intake Total 410 ml 530 ml Output Total 600 ml 300 ml Balance -190 ml 230 ml Free Water 60 ml 130 ml Tube Feeding 350 ml 400 ml Output Urine Total 600 ml 300 ml Laboratory Tests Test 03/26/18 06:49 Prothrombin Time 20.1 SEC (9.30-11.50) H Prothromb Time International Ratio 2.0 (0.9-1.1) H Herminio Diallo MD Mar 26, 2018 14:07
--- NOTE | 2018-03-26 15:01 | Pulmonology Progress Note ---
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 Stable over night, no new complaints/issues. 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 -H/O Hip Fx -PD -Dementia -Dsyphagia S/P PEG PLAN: -BiPAP PRN/QHS -Titrate down FiO2 to keep SaO2 > 90% -Optimize pulmonary hygiene/mobilize as tolerated -RTC and PRN HHN's -Decrease SM to 20 IV qD -PRN racemic EPI -Observe off Abx -Monitor volumes and renal function, SLIV, PRN Lasix -GTF's -DVT Px: coumadin -DNAR/DNI D/W daughter D/W RN Subjective Allergies: Coded Allergies: STRAWBERRY (Verified Allergy, Unknown, Rash, 06/29/13) COPIED FROM UNCODED SECTION VALSARTAN (Verified Allergy, Unknown, 03/09/11) Subjective PRATEEK AFVSS on tiffanie TF's d some cough but better no FC Objective Vital Signs Noted General Appearance: no acute distress - on HEENT: normocephalic, atraumatic, anicteric, mucous membranes moist Respiratory/Chest: rhonchi Cardiovascular: normal peripheral pulses, normal rate, regular rhythm Abdomen: normal bowel sounds, soft, non tender, no organomegaly, non distended , other - GT Extremities: no cyanosis, no clubbing, no edema Laboratory Tests 03/22/18 03:30: White Blood Count 12.5H, Red Blood Count 3.66L, Hemoglobin 11.1L, Hematocrit 34.6L, Mean Corpuscular Volume 95, Mean Corpuscular Hemoglobin 30.4, Mean Corpuscular Hemoglobin Concent 32.2, Red Cell Distribution Width 13.9, Platelet Count 106L, Mean Platelet Volume 10.8H, Neutrophils (%) (Auto) , Lymphocytes (% ) (Auto) , Monocytes (%) (Auto) , Eosinophils (%) (Auto) , Basophils (%) (Auto) , Differential Total Cells Counted 100, Neutrophils % (Manual) 93H, Lymphocytes % (Manual) 3L, Monocytes % (Manual) 4, Eosinophils % (Manual) 0, Basophils % ( Manual) 0, Band Neutrophils 0, Platelet Estimate DecreasedL, Platelet Morphology Normal, Red Blood Cell Morphology Normal, Prothrombin Time 14.7H, Prothromb Time International Ratio 1.4H, Sodium Level 145, Potassium Level 3.9, Chloride Level 107, Carbon Dioxide Level 32, Anion Gap 6, Blood Urea Nitrogen 37H, Creatinine 1.0, Estimat Glomerular Filtration Rate , Glucose Level 128H, Calcium Level 9.3, Phosphorus Level 2.4L, Magnesium Level 1.8 Current Medications Medications (Trade) Dose Ordered Sig/Marcel Route PRN Reason Start Time Stop Time Status Last Admin Dose Admin Acetaminophen (Tylenol) 650 mg Q4H PRN GT Mild Pain/Temp > 100.5 03/21/18 04:15 04/19/18 20:14 Albuterol/ Ipratropium (Albuterol/ Ipratropium) 3 ml Q4HRT HHN 03/21/18 03:00 03/25/18 11:29 03/22/18 07:00 Amlodipine Besylate (Norvasc) 2.5 mg DAILY@0930 GT 03/22/18 09:30 04/20/18 09:29 Artificial Tears (Akwa-Tears) 1 drop 0730,1000,1230,1500 BOTH EYES 03/21/18 07:30 04/15/18 07:29 03/21/18 07:47 Ascorbic Acid (Vitamin C) 500 mg DAILY@0930 GT 03/21/18 09:30 04/20/18 09:29 03/22/18 09:32 Calcium Carbonate (Os-Wyatt) 2,500 mg BID@0930,1700 GT 03/21/18 09:30 04/20/18 09:29 03/22/18 09:32 Carbidopa/Levodopa (Sinemet 25/250) 1 tab BID@0730,1230 GT 03/21/18 07:30 04/20/18 07:29 03/22/18 08:12 Dextrose (Dextrose 50%) 25 ml Q30M PRN IV Hypoglycemia 03/21/18 03:30 04/13/18 12:59 Dextrose (Dextrose 50%) 50 ml Q30M PRN IV Hypoglycemia 03/21/18 03:30 04/13/18 12:59 Diphenhydramine HCl (Benadryl) 25 mg Q6H PRN GT Itching 03/21/18 08:30 04/19/18 20:29 Docusate Sodium (Colace) 200 mg DAILY@0730 GT 03/21/18 07:30 04/20/18 07:29 03/22/18 08:11 EZETIMIBE (Zetia) 10 mg DAILY@1700 GT 03/21/18 17:00 04/19/18 20:59 03/21/18 17:25 Haloperidol Lactate 0.5 mg/ Dextrose 55.1 ml @ 220.4 mls/ hr Q6H PRN IVPB Agitation 03/21/18 04:00 04/18/18 21:59 Hydralazine HCl (Apresoline) 5 mg Q4H PRN IV SBP >170 03/21/18 05:00 04/14/18 12:59 Levothyroxine Sodium (Synthroid) 112 mcg DAILY@0630 GT 03/21/18 06:30 04/14/18 06:29 03/22/18 06:02 Magnesium Hydroxide (Mom) 30 ml HSPRN PRN GT Constipation 03/21/18 20:30 04/13/18 20:59 03/22/18 08:12 Methylprednisolone Sodium Succinate (Solu-MEDROL) 20 mg BID IVP 03/21/18 09:00 04/20/18 08:59 03/22/18 09:31 Mirtazapine (Remeron) 15 mg DAILY@1800 GT 03/21/18 18:00 04/19/18 20:59 03/21/18 17:25 Multivitamins (Multivitamins W/ Minerals 15ml Liquid) 15 ml DAILY GT 03/21/18 09:00 04/20/18 08:59 03/22/18 09:31 Ondansetron HCl (Zofran) 4 mg Q6H PRN IVP Nausea & Vomiting 03/21/18 05:30 04/13/18 11:19 Pantoprazole (Protonix) 40 mg DAILY@0730 IV 03/21/18 07:30 04/15/18 07:29 03/22/18 08:12 Racepinephrine (S2) 0.5 ml Q4H PRN HHN STRIDOR 03/21/18 03:30 04/14/18 11:19 Ropinirole HCl (Requip) 1 mg BID@0730,1230 GT 03/21/18 07:30 04/19/18 20:14 03/22/18 08:12 Warfarin Sodium (Coumadin per pharmacy) 1 ea DAILY PRN MISC Per rx protocol 03/21/18 09:00 04/19/18 11:59 Warfarin Sodium (Coumadin) 6 mg ONCE GT 03/22/18 20:00 03/22/18 21:00 Subjective ROS Limited/Unobtainable: No Allergies: Coded Allergies: STRAWBERRY (Verified Allergy, Unknown, Rash, 06/29/13) COPIED FROM UNCODED SECTION VALSARTAN (Verified Allergy, Unknown, 03/09/11) Objective Last 24 Hour Vital Signs Date Time Temp Pulse Resp B/P (MAP) Pulse Ox O2 Delivery O2 Flow Rate FiO2 03/26/18 12:59 67 21 96 Facial 50 03/26/18 12:00 Bi-pap 03/26/18 12:00 50 03/26/18 12:00 62 03/26/18 12:00 98.6 65 17 113/74 (87) 100 03/26/18 10:47 64 25 95 Facial 50 03/26/18 08:38 60 23 94 Facial 50 03/26/18 08:00 50 03/26/18 08:00 Bi-pap 03/26/18 08:00 97.9 70 24 109/53 (71) 95 03/26/18 08:00 69 03/26/18 07:57 61 21 93 Facial 50 03/26/18 07:56 Bi-pap 50 03/26/18 07:56 93 Bi-pap 50 03/26/18 04:57 55 22 97 Facial 50 03/26/18 04:00 50 03/26/18 04:00 Bi-pap 03/26/18 04:00 97.8 51 22 153/77 (102) 99 03/26/18 03:47 48 03/26/18 02:59 52 20 99 Facial 50 03/26/18 01:00 55 18 98 Facial 50 03/26/18 00:00 97.8 51 17 136/64 (88) 99 03/26/18 00:00 50 03/26/18 00:00 Bi-pap 03/25/18 23:34 48 03/25/18 22:54 53 19 100 Facial 50 03/25/18 20:58 57 20 100 Facial 50 03/25/18 20:00 98.1 64 22 156/77 (103) 97 03/25/18 20:00 Bi-pap 03/25/18 20:00 50 03/25/18 19:31 98 Bi-pap 50 03/25/18 19:31 Bi-pap 50 03/25/18 19:26 62 03/25/18 18:44 64 25 99 Facial 50 03/25/18 16:58 63 20 96 Facial 50 03/25/18 16:05 65 03/25/18 16:01 73 28 94 Facial 50 03/25/18 16:00 99.4 65 25 148/83 (104) 96 03/25/18 15:50 Bi-pap 03/25/18 15:35 72 Intake and Output 03/25/18 03/26/18 18:59 06:59 Intake Total 410 ml 530 ml Output Total 600 ml 300 ml Balance -190 ml 230 ml Free Water 60 ml 130 ml Tube Feeding 350 ml 400 ml Output Urine Total 600 ml 300 ml Laboratory Tests 03/26/18 06:49: Prothrombin Time 20.1H, Prothromb Time International Ratio 2.0H Current Medications Medications (Trade) Dose Ordered Sig/Marcel Route PRN Reason Start Time Stop Time Status Last Admin Dose Admin Acetaminophen (Tylenol) 650 mg Q4H PRN GT Mild Pain/Temp > 100.5 03/21/18 04:15 04/19/18 20:14 03/25/18 12:25 Artificial Tears (Akwa-Tears) 1 drop 0730,1000,1230,1500 BOTH EYES 03/21/18 07:30 04/15/18 07:29 03/26/18 09:10 Ascorbic Acid (Vitamin C) 500 mg DAILY@0930 GT 03/21/18 09:30 3/14/19 09:29 03/26/18 09:09 Calcium Carbonate (Os-Wyatt) 2,500 mg BID@0930,1700 GT 03/21/18 09:30 04/20/18 09:29 03/26/18 09:09 Carbidopa/Levodopa (Sinemet 25/250) 1 tab BID@0730,1230 GT 03/21/18 07:30 04/20/18 07:29 03/26/18 11:47 Dextrose (Dextrose 50%) 25 ml Q30M PRN IV Hypoglycemia 03/21/18 03:30 04/13/18 12:59 Dextrose (Dextrose 50%) 50 ml Q30M PRN IV Hypoglycemia 03/21/18 03:30 04/13/18 12:59 Diphenhydramine HCl (Benadryl) 25 mg Q6H PRN GT Itching 03/21/18 08:30 04/19/18 20:29 Docusate Sodium (Colace) 200 mg DAILY@0730 GT 03/21/18 07:30 04/20/18 07:29 03/26/18 06:29 EZETIMIBE (Zetia) 10 mg DAILY@1700 GT 03/21/18 17:00 04/19/18 20:59 03/25/18 18:05 Hydralazine HCl (Apresoline) 5 mg Q4H PRN IV SBP >170 03/21/18 05:00 04/14/18 12:59 Levothyroxine Sodium (Synthroid) 112 mcg DAILY@0630 GT 03/21/18 06:30 04/14/18 06:29 03/26/18 06:28 Magnesium Hydroxide (Mom) 30 ml HSPRN PRN GT Constipation 03/21/18 20:30 04/13/18 20:59 03/22/18 08:12 Methylprednisolone Sodium Succinate (Solu-MEDROL) 20 mg DAILY IVP 03/23/18 09:00 04/20/18 08:59 03/26/18 09:09 Mirtazapine (Remeron) 15 mg DAILY@1800 GT 03/21/18 18:00 04/19/18 20:59 03/25/18 18:05 Multivitamins (Multivitamins W/ Minerals 15ml Liquid) 15 ml DAILY GT 03/21/18 09:00 04/20/18 08:59 03/26/18 09:09 Ondansetron HCl (Zofran) 4 mg Q6H PRN IVP Nausea & Vomiting 03/21/18 05:30 04/13/18 11:19 Pantoprazole (Protonix) 40 mg DAILY@0730 IV 03/21/18 07:30 04/15/18 07:29 03/26/18 06:29 Polyethylene Glycol (Miralax) 17 gm BEDTIME ORAL 03/25/18 21:00 04/24/18 20:59 03/25/18 20:28 Racepinephrine (S2) 0.5 ml Q4H PRN HHN STRIDOR 03/21/18 03:30 04/14/18 11:19 Ropinirole HCl (Requip) 1 mg BID@0730,1230 GT 03/21/18 07:30 04/19/18 20:14 03/26/18 11:47 Warfarin Sodium (Coumadin per pharmacy) 1 ea DAILY PRN MISC Per rx protocol 03/21/18 09:00 04/19/18 11:59 Warfarin Sodium (Coumadin) 5 mg ONCE ONCE GT 03/26/18 20:00 03/26/18 20:01 Nomi Cruz MD Mar 26, 2018 15:01
--- NOTE | 2018-03-26 15:49 | Neurology Progress Note ---
Interim History Interim History Interim History Ms. Benjamin feels unwell. She is on BiPAP now and quite uncomfortable. She continues to be cognitively impoverished. She continues to be generally weak. She denies any new neurologic problems. Review of Systems Neuro Review of Systems Benign. Objective Physical Exam Last Vital Signs Date Time Temp Pulse Resp B/P (MAP) Pulse Ox O2 Delivery O2 Flow Rate FiO2 03/26/18 15:00 59 19 100 Facial 50 03/26/18 12:00 98.6 113/74 (87) 03/25/18 14:30 15.0 Laboratory Tests Test 03/26/18 06:49 Prothrombin Time 20.1 SEC (9.30-11.50) H Prothromb Time International Ratio 2.0 (0.9-1.1) H Neurologic Exam Objective PHYSICAL EXAMINATION: GENERAL: She is a well-developed, cachectic, ill-looking, lady, lying in bed, in no distress. HEAD: Normocephalic and atraumatic. EENT: Examination benign. NECK: No neck rigidity was observed. NEUROLOGIC EXAMINATION: MENTAL STATUS EXAMINATION: She was awake, but not completely alert. She was oriented to self only. She had no idea where she was or what the date was. She was unable to cooperate for further mental status testing. SPEECH: She had a significant dysarthria. LANGUAGE: She had problems with comprehension and expression of language. CRANIAL NERVE EXAMINATION: II: She did blink to threat, but was unable to count fingers accurately. III, IV & : The external ocular movements were full and the pupils 3 mm in diameter and did not react to light. V & VII: The corneal reflex was diminished on the right side compared to the left. In addition, she also had a right seventh central facial paresis. VIII: She seemed to be able to hear and had no nystagmus. IX: The palate moved symmetrically on phonation. X: She had no hoarseness of voice. XI: The sternocleidomastoids and trapezii functioned. XII: The tongue was in the midline without any fasciculations or atrophy. MOTOR SYSTEM: The tone was increased in all four extremities with a combination of rigidity and gegenhalten. Examination of muscle mass revealed generalized muscle wasting. In addition, she also had bilateral ankle cord contractures. Examination of power was exceedingly difficult to perform because of her inability to perform. 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 SENSORY EXAMINATION: She responded appropriately to deep pain in all four extremities. REFLEXES: Trace+ and bilaterally symmetrical at the biceps, triceps, brachioradialis, and knees and 0 at both ankles. The plantar responses were flexor bilaterally. COORDINATION, STANCE & GAIT: Could not be tested. ABNORMAL MOVEMENTS: Tremor (4-5 Hz): G 0/4, Rigidity: G 1/4 Bradykinesia: G 1/4 Hypomimia: G 2/4. Impression/Recommendations Diagnostic Impression 1. Ms. Danelle Benjamin is an 88-year-old, right-handed, lady, with a past history of multiple medical problems, who was hospitalized on 2018 for respiratory problems related to aspiration pneumonia and fluid overload. She has since been treated for these problems and has improved, but has recently been moaning and groaning and been unable to let her needs to be known. 2. She feels unwell. She is on BiPAP now and quite uncomfortable. She continues to be cognitively impoverished. She continues to be generally weak. She denies any new neurologic problems. 3. 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 4. Her latest laboratory data on my initial evaluation revealed that her WBC count was elevated at 12,300. She was mildly anemic with a hemoglobin of 11 G. The chemistry panel revealed that her BUN was elevated at 36 with a normal creatinine at 0.8 and her last proBNP on 03/23/2018 was 2774. 5. 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 6. The moaning and groaning were due to the fact that she was uncomfortable for reasons that she could not express. However, the moaning and groaning has stopped. 7. She is now on BiPAP and uncomfortable from it. Recommendations 1. Continue present management. 2. Keep comfortable. 3. Observe closely. Yobany Menard M.D., M.S.P.H. Yobany Menard MD Mar 26, 2018 15:49
[2018-03-26 16:00] VITALS: BP 132/71
[2018-03-26] MEDS ORDERED: NS 275ml ONE (17:23)
[2018-03-26] MEDS ORDERED: Tubing IV Secondary IV ONE (17:23)
[2018-03-26] MEDS ORDERED: Sterile Water Irrig 1000ml IRRIG ONE (17:23)
[2018-03-26 20:00] VITALS: BP 124/62
[2018-03-26] MEDS ORDERED: Warfarin Sodium 5mg GT ONE (20:00)
[2018-03-26] MEDS: Miralax 17gm pkt ORAL SCH (20:49)
[2018-03-27] VITALS: BP 135/60
[2018-03-27 04:00] VITALS: BP 126/86
[2018-03-27 06:03] LABS: HEMATOCRIT 33.1 % (37.0-47.0); HEMOGLOBIN 10.9 G/DL (12.0-16.0); MEAN CORPUSCULAR VOLUME 94 FL (80-99); PLATELET COUNT 150 K/UL (150-450); RED BLOOD COUNT 3.53 M/UL (4.20-5.40); RED CELL DISTRIBUTION WIDTH 13.6 % (11.6-14.8)
[2018-03-27 06:07] LABS: INR 1.6 (0.9-1.1)
[2018-03-27 06:33] LABS: ANION GAP 4 mmol/L (5-15); BLOOD UREA NITROGEN 32 mg/dL (7-18); CALCIUM 9.6 MG/DL (8.5-10.1); CARBON DIOXIDE 34 MMOL/L (21-32); CHLORIDE 102 MMOL/L (98-107); CREATININE 0.6 MG/DL (0.55-1.30); PHOSPHORUS 2.4 MG/DL (2.5-4.9); POTASSIUM 4.4 MMOL/L (3.5-5.1); SODIUM 140 MMOL/L (136-145)
[2018-03-27] MEDS: Levodopa/Carbidopa 25/250 tab GT SCH ×2 (06:33→12:26)
[2018-03-27] MEDS: Docusate 100mg/10ml Liq GT SCH (06:33)
[2018-03-27] MEDS: Pantoprazole Inj IV SCH (06:33)
[2018-03-27] MEDS: Ascorbic Acid 500mg tab GT SCH (08:43)
[2018-03-27] MEDS: Solu-MEDROL 40mg Inj IVP SCH (08:44)
[2018-03-27] MEDS: Multivitamins W/Minerals 15 ML UDC GT SCH (08:44)
[2018-03-27] MEDS: Artificial Tears 1.4% Op Soln BOTH EYES SCH ×4 (08:44→15:00)
[2018-03-27 09:00] VITALS: BP 100/61
--- NOTE | 2018-03-27 10:51 | GI Progress Note ---
Assessment/Plan Problems: (1) Encounter for PEG (percutaneous endoscopic gastrostomy) ICD Codes: Z43.1 - Encounter for attention to gastrostomy SNOMED: 713890228, 845111891 (2) Severe malnutrition ICD Codes: E43 - Unspecified severe protein-calorie malnutrition SNOMED: 09114871 (3) Failure to thrive SNOMED: 37822813 (4) Dysphasia ICD Codes: R47.02 - Dysphasia SNOMED: 82467573 (5) Dehydration ICD Codes: E86.0 - Dehydration SNOMED: 20360546 (6) Hiatal hernia ICD Codes: K44.9 - Diaphragmatic hernia without obstruction or gangrene SNOMED: 89513738 Status: unchanged Status Narrative Discussed with Dr. Horta Assessment/Plan SUMMARY OF FINDINGS: 1. Large hiatal hernia. 2. Gastritis. 3. Status post successful PEG placement. RECOMMENDATIONS: Abdominal binder. Elevate head of the bed at all times. G-tube flush. G-tube care. GTFs per RD to goal abx Reglan as needed for GI motility supportive care miralax The patient was seen and examined at bedside and all new and available data was reviewed in the patients chart. I agree with the above findings, impression and plan. (Patient seen earlier today. Signature stamp does not reflect patient encounter time.). - Chuck Horta MD Subjective Subjective limited Objective Last 24 Hour Vital Signs Date Time Temp Pulse Resp B/P (MAP) Pulse Ox O2 Delivery O2 Flow Rate FiO2 03/27/18 09:22 60 18 99 Full Face 50 03/27/18 09:00 97.3 60 20 100/61 (74) 96 03/27/18 08:00 50 03/27/18 08:00 Bi-pap 03/27/18 08:00 67 03/27/18 06:56 69 19 99 Facial 50 03/27/18 06:56 Bi-pap 50 03/27/18 06:55 99 Bi-pap 50 03/27/18 05:18 62 24 98 Facial 50 03/27/18 04:00 50 03/27/18 04:00 98.1 58 28 126/86 (99) 100 03/27/18 04:00 Bi-pap 03/27/18 03:52 59 03/27/18 02:55 59 22 99 Facial 50 03/27/18 01:28 56 20 98 Facial 50 03/27/18 00:00 Bi-pap 03/27/18 00:00 98.0 59 15 135/60 (85) 99 03/26/18 23:37 61 03/26/18 23:10 60 24 99 Facial 50 03/26/18 21:24 60 24 97 Facial 50 03/26/18 20:00 98.6 62 22 124/62 (82) 97 03/26/18 20:00 50 03/26/18 20:00 Bi-pap 03/26/18 19:43 63 03/26/18 19:35 Bi-pap 50 03/26/18 19:34 97 Bi-pap 50 03/26/18 18:40 64 26 97 Facial 50 03/26/18 17:28 60 20 99 Facial 50 03/26/18 16:00 68 03/26/18 16:00 98.2 64 20 132/71 (91) 97 03/26/18 16:00 Bi-pap 03/26/18 16:00 50 03/26/18 15:00 59 19 100 Facial 50 03/26/18 12:59 67 21 96 Facial 50 03/26/18 12:00 Bi-pap 03/26/18 12:00 50 03/26/18 12:00 62 03/26/18 12:00 98.6 65 17 113/74 (87) 100 Intake and Output 03/26/18 03/27/18 19:00 07:00 Intake Total 600 ml 550 ml Output Total 300 ml 500 ml Balance 300 ml 50 ml Free Water 100 ml Tube Feeding 600 ml 450 ml Output Urine Total 300 ml 500 ml # Bowel Movements 3 Laboratory Tests Test 03/27/18 03:40 White Blood Count 15.0 K/UL (4.8-10.8) H Red Blood Count 3.53 M/UL (4.20-5.40) L Hemoglobin 10.9 G/DL (12.0-16.0) L Hematocrit 33.1 % (37.0-47.0) L Mean Corpuscular Volume 94 FL (80-99) Mean Corpuscular Hemoglobin 30.8 PG (27.0-31.0) Mean Corpuscular Hemoglobin Concent 32.8 G/DL (32.0-36.0) Red Cell Distribution Width 13.6 % (11.6-14.8) Platelet Count 150 K/UL (150-450) Mean Platelet Volume 12.1 FL (6.5-10.1) H Neutrophils (%) (Auto) % (45.0-75.0) Lymphocytes (%) (Auto) % (20.0-45.0) Monocytes (%) (Auto) % (1.0-10.0) Eosinophils (%) (Auto) % (0.0-3.0) Basophils (%) (Auto) % (0.0-2.0) Neutrophils % (Manual) Pending Lymphocytes % (Manual) Pending Platelet Estimate Pending Platelet Morphology Pending Prothrombin Time 16.6 SEC (9.30-11.50) H Prothromb Time International Ratio 1.6 (0.9-1.1) H Sodium Level 140 MMOL/L (136-145) Potassium Level 4.4 MMOL/L (3.5-5.1) Chloride Level 102 MMOL/L (98-107) Carbon Dioxide Level 34 MMOL/L (21-32) H Anion Gap 4 mmol/L (5-15) L Blood Urea Nitrogen 32 mg/dL (7-18) H Creatinine 0.6 MG/DL (0.55-1.30) Estimat Glomerular Filtration Rate mL/min (>60) Glucose Level 93 MG/DL (74-106) Calcium Level 9.6 MG/DL (8.5-10.1) Phosphorus Level 2.4 MG/DL (2.5-4.9) L Height (Feet): 4 Height (Inches): 4.00 Weight (Pounds): 94 General Appearance: WD/WN, no apparent distress, alert Cardiovascular: normal rate Respiratory/Chest: normal breath sounds, no respiratory distress Abdominal Exam: normal bowel sounds, non tender, soft, GT site - Clean dry and intact Extremities: non-tender Clifton Brock NP Mar 27, 2018 10:51
[2018-03-27 12:00] VITALS: BP 126/73
--- NOTE | 2018-03-27 14:54 | Pulmonology Progress Note ---
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 -H/O Hip Fx -PD -Dementia -Dsyphagia S/P PEG PLAN: -CXR, ABG, BNP -BiPAP PRN only -Titrate down FiO2 to keep SaO2 > 90% -Optimize pulmonary hygiene/mobilize as tolerated -RTC and PRN HHN's -Decrease SM to 10 IV qD -PRN racemic EPI -Observe off Abx -Monitor volumes and renal function, SLIV, PRN Lasix -GTF's - ONLY WHEN STABLE OFF BiPAP -DVT Px: coumadin -DNAR/DNI D/W daughter D/W RN Subjective Allergies: Coded Allergies: STRAWBERRY (Verified Allergy, Unknown, Rash, 06/29/13) COPIED FROM UNCODED SECTION VALSARTAN (Verified Allergy, Unknown, 03/09/11) Subjective On off VM and BiPAP [employer] O2 needs No distress No cough, no wheezing, no FC Objective Last 24 Hour Vital Signs Date Time Temp Pulse Resp B/P (MAP) Pulse Ox O2 Delivery O2 Flow Rate FiO2 03/27/18 13:23 68 19 97 Full Face 50 03/27/18 12:00 50 03/27/18 12:00 Bi-pap 03/27/18 12:00 59 03/27/18 12:00 97.5 54 18 126/73 (90) 95 03/27/18 11:00 65 16 96 Full Face 50 03/27/18 09:22 60 18 99 Full Face 50 03/27/18 09:00 97.3 60 20 100/61 (74) 96 03/27/18 08:00 50 03/27/18 08:00 Bi-pap 03/27/18 08:00 67 03/27/18 06:56 69 19 99 Facial 50 03/27/18 06:56 Bi-pap 50 03/27/18 06:55 99 Bi-pap 50 03/27/18 05:18 62 24 98 Facial 50 03/27/18 04:00 50 03/27/18 04:00 98.1 58 28 126/86 (99) 100 03/27/18 04:00 Bi-pap 03/27/18 03:52 59 03/27/18 02:55 59 22 99 Facial 50 03/27/18 01:28 56 20 98 Facial 50 03/27/18 00:00 Bi-pap 03/27/18 00:00 98.0 59 15 135/60 (85) 99 03/26/18 23:37 61 03/26/18 23:10 60 24 99 Facial 50 03/26/18 21:24 60 24 97 Facial 50 03/26/18 20:00 98.6 62 22 124/62 (82) 97 03/26/18 20:00 50 03/26/18 20:00 Bi-pap 03/26/18 19:43 63 03/26/18 19:35 Bi-pap 50 03/26/18 19:34 97 Bi-pap 50 03/26/18 18:40 64 26 97 Facial 50 03/26/18 17:28 60 20 99 Facial 50 03/26/18 16:00 68 03/26/18 16:00 98.2 64 20 132/71 (91) 97 03/26/18 16:00 Bi-pap 03/26/18 16:00 50 03/26/18 15:00 59 19 100 Facial 50 Intake and Output 03/26/18 03/27/18 19:00 07:00 Intake Total 600 ml 550 ml Output Total 300 ml 500 ml Balance 300 ml 50 ml Free Water 100 ml Tube Feeding 600 ml 450 ml Output Urine Total 300 ml 500 ml # Bowel Movements 3 General Appearance: no acute distress, cachetic, other - on BiAPP HEENT: normocephalic, atraumatic, anicteric, mucous membranes moist Respiratory/Chest: chest wall non-tender, lungs clear, normal breath sounds, no respiratory distress, no accessory muscle use Cardiovascular: normal peripheral pulses, normal rate, regular rhythm Abdomen: normal bowel sounds, soft, non tender, no organomegaly, non distended , no mass Extremities: no cyanosis, no clubbing, no edema Laboratory Tests 03/27/18 03:40: White Blood Count 15.0H, Red Blood Count 3.53L, Hemoglobin 10.9L, Hematocrit 33.1L, Mean Corpuscular Volume 94, Mean Corpuscular Hemoglobin 30.8, Mean Corpuscular Hemoglobin Concent 32.8, Red Cell Distribution Width 13.6, Platelet Count 150, Mean Platelet Volume 12.1H, Neutrophils (%) (Auto) , Lymphocytes (%) (Auto) , Monocytes (%) (Auto) , Eosinophils (%) (Auto) , Basophils (%) (Auto) , Differential Total Cells Counted 100, Neutrophils % (Manual) 78H, Lymphocytes % (Manual) 6L, Monocytes % (Manual) 3, Eosinophils % (Manual) 1, Basophils % ( Manual) 0, Band Neutrophils 12H, Platelet Estimate Adequate, Platelet Morphology Normal, Red Blood Cell Morphology Normal, Prothrombin Time 16.6H, Prothromb Time International Ratio 1.6H, Sodium Level 140, Potassium Level 4.4, Chloride Level 102, Carbon Dioxide Level 34H, Anion Gap 4L, Blood Urea Nitrogen 32H, Creatinine 0.6, Estimat Glomerular Filtration Rate , Glucose Level 93, Calcium Level 9.6, Phosphorus Level 2.4L Current Medications Medications (Trade) Dose Ordered Sig/Marcel Route PRN Reason Start Time Stop Time Status Last Admin Dose Admin Acetaminophen (Tylenol) 650 mg Q4H PRN GT Mild Pain/Temp > 100.5 03/21/18 04:15 04/19/18 20:14 03/25/18 12:25 Artificial Tears (Akwa-Tears) 1 drop 0730,1000,1230,1500 BOTH EYES 03/21/18 07:30 04/15/18 07:29 03/27/18 08:44 Ascorbic Acid (Vitamin C) 500 mg DAILY@0930 GT 03/21/18 09:30 04/20/18 09:29 03/27/18 08:43 Calcium Carbonate (Os-Wyatt) 2,500 mg BID@0930,1700 GT 03/21/18 09:30 04/20/18 09:29 03/27/18 08:43 Carbidopa/Levodopa (Sinemet 25/250) 1 tab BID@0730,1230 GT 03/21/18 07:30 04/20/18 07:29 03/27/18 12:26 Dextrose (Dextrose 50%) 25 ml Q30M PRN IV Hypoglycemia 03/21/18 03:30 04/13/18 12:59 Dextrose (Dextrose 50%) 50 ml Q30M PRN IV Hypoglycemia 03/21/18 03:30 04/13/18 12:59 Diphenhydramine HCl (Benadryl) 25 mg Q6H PRN GT Itching 03/21/18 08:30 04/19/18 20:29 Docusate Sodium (Colace) 200 mg DAILY@0730 GT 03/21/18 07:30 04/20/18 07:29 03/27/18 06:33 EZETIMIBE (Zetia) 10 mg DAILY@1700 GT 03/21/18 17:00 04/19/18 20:59 03/26/18 17:24 Hydralazine HCl (Apresoline) 5 mg Q4H PRN IV SBP >170 03/21/18 05:00 04/14/18 12:59 Levothyroxine Sodium (Synthroid) 112 mcg DAILY@0630 GT 03/21/18 06:30 04/14/18 06:29 03/27/18 06:32 Magnesium Hydroxide (Mom) 30 ml HSPRN PRN GT Constipation 03/21/18 20:30 04/13/18 20:59 03/22/18 08:12 Methylprednisolone Sodium Succinate (Solu-MEDROL) 20 mg DAILY IVP 03/23/18 09:00 04/20/18 08:59 03/27/18 08:44 Mirtazapine (Remeron) 15 mg DAILY@1800 GT 03/21/18 18:00 04/19/18 20:59 03/26/18 17:23 Multivitamins (Multivitamins W/ Minerals 15ml Liquid) 15 ml DAILY GT 03/21/18 09:00 04/20/18 08:59 03/27/18 08:44 Ondansetron HCl (Zofran) 4 mg Q6H PRN IVP Nausea & Vomiting 03/21/18 05:30 04/13/18 11:19 Pantoprazole (Protonix) 40 mg DAILY@0730 IV 03/21/18 07:30 04/15/18 07:29 03/27/18 06:33 Polyethylene Glycol (Miralax) 17 gm BEDTIME ORAL 03/25/18 21:00 04/24/18 20:59 03/26/18 20:49 Racepinephrine (S2) 0.5 ml Q4H PRN HHN STRIDOR 03/21/18 03:30 04/14/18 11:19 Ropinirole HCl (Requip) 1 mg BID@0730,1230 GT 03/21/18 07:30 04/19/18 20:14 03/27/18 12:26 Warfarin Sodium (Coumadin per pharmacy) 1 ea DAILY PRN MISC Per rx protocol 03/21/18 09:00 04/19/18 11:59 Warfarin Sodium (Coumadin) 6 mg ONCE GT 03/27/18 20:00 03/27/18 22:00 Kevyn Caraballo MD Mar 27, 2018 14:54
[2018-03-27] MEDS ORDERED: Ipratropium 0.02% Inh Soln 2.5ml UD HHN PRN (15:00)
[2018-03-27 16:00] VITALS: BP 142/74
--- NOTE | 2018-03-27 16:23 | Diagnostic Imaging Report ---
Indication: Dyspnea Comparison: 03/23/2018 A single view chest radiograph was obtained. Findings: Interstitial opacities demonstrated within the lungs. There is dilatation and tortuosity of the air filled esophagus. Heart is enlarged. Bones are osteopenic. IMPRESSION: No significant change. Suspected interstitial edema/CHF. Dilated esophagus. Consider achalasia. Consider further evaluation
[2018-03-27] MEDS: Ipratropium 0.02% Inh Soln 2.5ml UD HHN SCH (19:49)
[2018-03-27 20:00] VITALS: BP 144/78
[2018-03-27] MEDS ORDERED: Warfarin Sodium 3mg GT SCH (20:00)
[2018-03-27] MEDS ORDERED: D5NS 1000ml IV ONE (20:03)
[2018-03-27] MEDS: Miralax 17gm pkt ORAL SCH (20:20)
--- NOTE | 2018-03-27 20:25 | Cardiology Progress Note ---
Assessment/Plan Assessment/Plan 1. Bronchospasm/stridor seemed to have resolved. 2. History of Parkinson's. 3. Hypertension history. 4. Dementia. 5. History of deep venous thrombosis and pulmonary embolism. 6. Osteoporosis. 7. Diastolic dysfunction. 8. Hyperlipidemia. s/p peg prn bipap steroid taper she looks comfortable at the moment but is agitated on Coumadin feedign via peg off ivf off abx bp look stable off norvasc appreciate neuro input need pulm toilette on 03/25 d/w dtr about LTACH possible [facility] in [place] next few days d/w dtr she sounds and looks better ttoday Subjective ROS Limited/Unobtainable: Yes Subjective calmer Objective Last 24 Hour Vital Signs Date Time Temp Pulse Resp B/P (MAP) Pulse Ox O2 Delivery O2 Flow Rate FiO2 03/27/18 19:47 70 20 96 Venturi Mask 14.0 55 03/27/18 19:46 Bi-pap 14.0 55 03/27/18 19:45 95 Venturi Mask 14.0 55 03/27/18 16:00 97.9 70 20 142/74 (96) 96 03/27/18 16:00 Bi-pap 03/27/18 16:00 50 03/27/18 16:00 68 03/27/18 13:23 68 19 97 Full Face 50 03/27/18 12:00 50 03/27/18 12:00 Bi-pap 03/27/18 12:00 59 03/27/18 12:00 97.5 54 18 126/73 (90) 95 03/27/18 11:00 65 16 96 Full Face 50 03/27/18 09:22 60 18 99 Full Face 50 03/27/18 09:00 97.3 60 20 100/61 (74) 96 03/27/18 08:00 50 03/27/18 08:00 Bi-pap 03/27/18 08:00 67 03/27/18 06:56 69 19 99 Facial 50 03/27/18 06:56 Bi-pap 50 03/27/18 06:55 99 Bi-pap 50 03/27/18 05:18 62 24 98 Facial 50 03/27/18 04:00 50 03/27/18 04:00 98.1 58 28 126/86 (99) 100 03/27/18 04:00 Bi-pap 03/27/18 03:52 59 03/27/18 02:55 59 22 99 Facial 50 03/27/18 01:28 56 20 98 Facial 50 03/27/18 00:00 Bi-pap 03/27/18 00:00 98.0 59 15 135/60 (85) 99 03/26/18 23:37 61 03/26/18 23:10 60 24 99 Facial 50 03/26/18 21:24 60 24 97 Facial 50 General Appearance: no apparent distress, alert Neck: supple Cardiovascular: normal rate, regular rhythm Respiratory/Chest: rhonchi - bilaterally Abdomen: normal bowel sounds, non tender, soft Extremities: no swelling Intake and Output 03/26/18 03/27/18 18:59 06:59 Intake Total 550 ml 600 ml Output Total 300 ml 500 ml Balance 250 ml 100 ml Free Water 100 ml Tube Feeding 550 ml 500 ml Output Urine Total 300 ml 500 ml # Bowel Movements 3 Laboratory Tests Test 03/27/18 03:40 03/27/18 16:20 White Blood Count 15.0 K/UL (4.8-10.8) H Red Blood Count 3.53 M/UL (4.20-5.40) L Hemoglobin 10.9 G/DL (12.0-16.0) L Hematocrit 33.1 % (37.0-47.0) L Mean Corpuscular Volume 94 FL (80-99) Mean Corpuscular Hemoglobin 30.8 PG (27.0-31.0) Mean Corpuscular Hemoglobin Concent 32.8 G/DL (32.0-36.0) Red Cell Distribution Width 13.6 % (11.6-14.8) Platelet Count 150 K/UL (150-450) Mean Platelet Volume 12.1 FL (6.5-10.1) H Neutrophils (%) (Auto) % (45.0-75.0) Lymphocytes (%) (Auto) % (20.0-45.0) Monocytes (%) (Auto) % (1.0-10.0) Eosinophils (%) (Auto) % (0.0-3.0) Basophils (%) (Auto) % (0.0-2.0) Differential Total Cells Counted 100 Neutrophils % (Manual) 78 % (45-75) H Lymphocytes % (Manual) 6 % (20-45) L Monocytes % (Manual) 3 % (1-10) Eosinophils % (Manual) 1 % (0-3) Basophils % (Manual) 0 % (0-2) Band Neutrophils 12 % (0-8) H Platelet Estimate Adequate Platelet Morphology Normal Red Blood Cell Morphology Normal Prothrombin Time 16.6 SEC (9.30-11.50) H Prothromb Time International Ratio 1.6 (0.9-1.1) H Sodium Level 140 MMOL/L (136-145) Potassium Level 4.4 MMOL/L (3.5-5.1) Chloride Level 102 MMOL/L (98-107) Carbon Dioxide Level 34 MMOL/L (21-32) H Anion Gap 4 mmol/L (5-15) L Blood Urea Nitrogen 32 mg/dL (7-18) H Creatinine 0.6 MG/DL (0.55-1.30) Estimat Glomerular Filtration Rate mL/min (>60) Glucose Level 93 MG/DL (74-106) Calcium Level 9.6 MG/DL (8.5-10.1) Phosphorus Level 2.4 MG/DL (2.5-4.9) L Pro-B-Type Natriuretic Peptide 1293 pg/mL (0-125) H Arterial Blood pH 7.457 (7.350-7.450) Arterial Blood Partial Pressure CO2 50.5 mmHg (35.0-45.0) H Arterial Blood Partial Pressure O2 52.8 mmHg (75.0-100.0) L Arterial Blood HCO3 34.9 mmol/L (22.0-26.0) H Arterial Blood Oxygen Saturation 89.8 % (95-100) *L Arterial Blood Base Excess 9.5 (-2-2) *H Cruzito Test Positive Herminio Diallo MD Mar 27, 2018 20:25
--- NOTE | 2018-03-27 20:38 | Neurology Progress Note ---
Interim History Interim History Interim History Ms. Benjamin feels a little better. She is on nasal O2 now and more comfortable. She continues to be cognitively impoverished. She continues to be generally weak. She denies any new neurologic problems. Review of Systems Neuro Review of Systems Benign. Objective Physical Exam Last Vital Signs Date Time Temp Pulse Resp B/P (MAP) Pulse Ox O2 Delivery O2 Flow Rate FiO2 03/27/18 19:47 70 20 96 Venturi Mask 14.0 55 03/27/18 16:00 97.9 142/74 (96) Laboratory Tests Test 03/27/18 03:40 03/27/18 16:20 White Blood Count 15.0 K/UL (4.8-10.8) H Red Blood Count 3.53 M/UL (4.20-5.40) L Hemoglobin 10.9 G/DL (12.0-16.0) L Hematocrit 33.1 % (37.0-47.0) L Mean Corpuscular Volume 94 FL (80-99) Mean Corpuscular Hemoglobin 30.8 PG (27.0-31.0) Mean Corpuscular Hemoglobin Concent 32.8 G/DL (32.0-36.0) Red Cell Distribution Width 13.6 % (11.6-14.8) Platelet Count 150 K/UL (150-450) Mean Platelet Volume 12.1 FL (6.5-10.1) H Neutrophils (%) (Auto) % (45.0-75.0) Lymphocytes (%) (Auto) % (20.0-45.0) Monocytes (%) (Auto) % (1.0-10.0) Eosinophils (%) (Auto) % (0.0-3.0) Basophils (%) (Auto) % (0.0-2.0) Differential Total Cells Counted 100 Neutrophils % (Manual) 78 % (45-75) H Lymphocytes % (Manual) 6 % (20-45) L Monocytes % (Manual) 3 % (1-10) Eosinophils % (Manual) 1 % (0-3) Basophils % (Manual) 0 % (0-2) Band Neutrophils 12 % (0-8) H Platelet Estimate Adequate Platelet Morphology Normal Red Blood Cell Morphology Normal Prothrombin Time 16.6 SEC (9.30-11.50) H Prothromb Time International Ratio 1.6 (0.9-1.1) H Sodium Level 140 MMOL/L (136-145) Potassium Level 4.4 MMOL/L (3.5-5.1) Chloride Level 102 MMOL/L (98-107) Carbon Dioxide Level 34 MMOL/L (21-32) H Anion Gap 4 mmol/L (5-15) L Blood Urea Nitrogen 32 mg/dL (7-18) H Creatinine 0.6 MG/DL (0.55-1.30) Estimat Glomerular Filtration Rate mL/min (>60) Glucose Level 93 MG/DL (74-106) Calcium Level 9.6 MG/DL (8.5-10.1) Phosphorus Level 2.4 MG/DL (2.5-4.9) L Pro-B-Type Natriuretic Peptide 1293 pg/mL (0-125) H Arterial Blood pH 7.457 (7.350-7.450) Arterial Blood Partial Pressure CO2 50.5 mmHg (35.0-45.0) H Arterial Blood Partial Pressure O2 52.8 mmHg (75.0-100.0) L Arterial Blood HCO3 34.9 mmol/L (22.0-26.0) H Arterial Blood Oxygen Saturation 89.8 % (95-100) *L Arterial Blood Base Excess 9.5 (-2-2) *H Cruzito Test Positive Neurologic Exam Objective PHYSICAL EXAMINATION: GENERAL: She is a well-developed, cachectic, ill-looking, lady, lying in bed, in no distress. HEAD: Normocephalic and atraumatic. EENT: Examination benign. NECK: No neck rigidity was observed. NEUROLOGIC EXAMINATION: MENTAL STATUS EXAMINATION: She was awake and more alert. She was oriented to self only. She had no idea where she was or what the date was. She was unable to cooperate for further mental status testing. SPEECH: She had a significant dysarthria. LANGUAGE: She had problems with comprehension and expression of language. CRANIAL NERVE EXAMINATION: II: She did blink to threat, but was unable to count fingers accurately. III, IV & : The external ocular movements were full and the pupils 3 mm in diameter and did not react to light. V & VII: The corneal reflex was diminished on the right side compared to the left. In addition, she also had a right seventh central facial paresis. VIII: She seemed to be able to hear and had no nystagmus. IX: The palate moved symmetrically on phonation. X: She had no hoarseness of voice. XI: The sternocleidomastoids and trapezii functioned. XII: The tongue was in the midline without any fasciculations or atrophy. MOTOR SYSTEM: The tone was increased in all four extremities with a combination of rigidity and gegenhalten. Examination of muscle mass revealed generalized muscle wasting. In addition, she also had bilateral ankle cord contractures. Examination of power was exceedingly difficult to perform because of her inability to perform. 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 SENSORY EXAMINATION: She responded appropriately to deep pain in all four extremities. REFLEXES: Trace+ and bilaterally symmetrical at the biceps, triceps, brachioradialis, and knees and 0 at both ankles. The plantar responses were flexor bilaterally. COORDINATION, STANCE & GAIT: Could not be tested. ABNORMAL MOVEMENTS: Tremor (4-5 Hz): G 0/4, Rigidity: G 1/4 Bradykinesia: G 1/4 Hypomimia: G 2/4. Impression/Recommendations Diagnostic Impression 1. Ms. Danelle Benjamin is an 88-year-old, right-handed, lady, with a past history of multiple medical problems, who was hospitalized on 2018 for respiratory problems related to aspiration pneumonia and fluid overload. She has since been treated for these problems and has improved, but has recently been moaning and groaning and been unable to let her needs to be known. 2. She feels a little better. She is on nasal O2 now and more comfortable. She continues to be cognitively impoverished. She continues to be generally weak. She denies any new neurologic problems. 3. 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 4. Her latest laboratory data on my initial evaluation revealed that her WBC count was elevated at 12,300. She was mildly anemic with a hemoglobin of 11 G. The chemistry panel revealed that her BUN was elevated at 36 with a normal creatinine at 0.8 and her last proBNP on 03/23/2018 was 2774. 5. 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 6. The moaning and groaning were due to the fact that she was uncomfortable for reasons that she could not express. However, the moaning and groaning has stopped. 7. She is more comfortable today off BiPAP. Recommendations 1. Continue present management. 2. Keep comfortable. 3. Observe closely. Yobany Menard M.D., M.S.P.H. Yobany Menard MD Mar 27, 2018 20:38
[2018-03-28] VITALS: BP 120/68
[2018-03-28] MEDS: Ipratropium 0.02% Inh Soln 2.5ml UD HHN SCH ×4 (01:30→19:25)
[2018-03-28 04:00] VITALS: BP 140/75
[2018-03-28 05:33] LABS: HEMATOCRIT 32.9 % (37.0-47.0); HEMOGLOBIN 10.7 G/DL (12.0-16.0); MEAN CORPUSCULAR VOLUME 94 FL (80-99); PLATELET COUNT 161 K/UL (150-450); RED CELL DISTRIBUTION WIDTH 13.1 % (11.6-14.8); WHITE BLOOD COUNT 13.2 K/UL (4.8-10.8)
[2018-03-28 05:46] LABS: INR 1.6 (0.9-1.1)
[2018-03-28 06:16] LABS: ANION GAP 2 mmol/L (5-15); BLOOD UREA NITROGEN 28 mg/dL (7-18); CARBON DIOXIDE 36 MMOL/L (21-32); CHLORIDE 102 MMOL/L (98-107); CREATININE 0.6 MG/DL (0.55-1.30); POTASSIUM 4.6 MMOL/L (3.5-5.1); SODIUM 140 MMOL/L (136-145)
[2018-03-28 06:33] LABS: PHOSPHORUS 2.7 MG/DL (2.5-4.9)
[2018-03-28] MEDS: Artificial Tears 1.4% Op Soln BOTH EYES SCH ×4 (07:30→15:23)
[2018-03-28 08:00] VITALS: BP 154/85
[2018-03-28] MEDS: Levodopa/Carbidopa 25/250 tab GT SCH ×2 (08:15→12:40)
[2018-03-28] MEDS: Docusate 100mg/10ml Liq GT SCH (08:15)
[2018-03-28] MEDS: Pantoprazole Inj IV SCH (08:16)
[2018-03-28] MEDS: Multivitamins W/Minerals 15 ML UDC GT SCH (08:16)
[2018-03-28] MEDS ORDERED: Solu-MEDROL 40mg Inj IVP SCH (09:00)
[2018-03-28] MEDS: Ascorbic Acid 500mg tab GT SCH (09:54)
[2018-03-28 12:00] VITALS: BP 119/73
--- NOTE | 2018-03-28 12:41 | GI Progress Note ---
Assessment/Plan Problems: (1) Encounter for PEG (percutaneous endoscopic gastrostomy) ICD Codes: Z43.1 - Encounter for attention to gastrostomy SNOMED: 501519099, 689648704 (2) Severe malnutrition ICD Codes: E43 - Unspecified severe protein-calorie malnutrition SNOMED: 84602323 (3) Failure to thrive SNOMED: 53605170 (4) Dysphasia ICD Codes: R47.02 - Dysphasia SNOMED: 19468398 (5) Dehydration ICD Codes: E86.0 - Dehydration SNOMED: 21152153 (6) Hiatal hernia ICD Codes: K44.9 - Diaphragmatic hernia without obstruction or gangrene SNOMED: 68051596 Status: unchanged Status Narrative Discussed with Dr. Horta Assessment/Plan SUMMARY OF FINDINGS: 1. Large hiatal hernia. 2. Gastritis. 3. Status post successful PEG placement. RECOMMENDATIONS: Abdominal binder. Elevate head of the bed at all times. G-tube flush. G-tube care. GTFs per RD to goal abx Reglan as needed for GI motility supportive care miralax The patient was seen and examined at bedside and all new and available data was reviewed in the patients chart. I agree with the above findings, impression and plan. (Patient seen earlier today. Signature stamp does not reflect patient encounter time.). - Chuck Horta MD Subjective Subjective limited Objective Last 24 Hour Vital Signs Date Time Temp Pulse Resp B/P (MAP) Pulse Ox O2 Delivery O2 Flow Rate FiO2 03/28/18 12:00 Bi-pap 03/28/18 10:54 65 24 95 Full Face 50 03/28/18 10:10 74 24 94 Full Face 50 03/28/18 09:00 50 03/28/18 08:00 Venturi Mask 03/28/18 08:00 55 03/28/18 08:00 97.5 62 22 154/85 (108) 96 03/28/18 07:44 62 03/28/18 07:32 71 22 97 Bi-pap 50 03/28/18 07:29 68 21 98 Full Face 50 03/28/18 07:24 99 Bi-pap 50 03/28/18 07:24 Bi-pap 50 03/28/18 07:23 68 21 98 Bi-pap 50 03/28/18 05:07 67 22 94 Full Face 50 03/28/18 04:00 50 03/28/18 04:00 97.9 60 21 140/75 (96) 94 03/28/18 04:00 Venturi Mask 03/28/18 04:00 60 03/28/18 03:32 59 19 99 Full Face 50 03/28/18 01:31 64 20 99 Bi-pap 50 03/28/18 01:26 65 22 99 Bi-pap 50 03/28/18 01:09 70 23 98 Full Face 50 03/28/18 00:00 55 03/28/18 00:00 Venturi Mask 03/28/18 00:00 74 03/28/18 00:00 98.6 74 21 120/68 (85) 94 03/27/18 23:58 73 23 95 Full Face 50 03/27/18 20:00 55 03/27/18 20:00 70 03/27/18 20:00 98.3 69 20 144/78 (100) 95 03/27/18 20:00 Venturi Mask 03/27/18 19:58 73 20 96 Venturi Mask 14.0 55 03/27/18 19:47 70 20 96 Venturi Mask 14.0 55 03/27/18 19:46 Bi-pap 14.0 55 03/27/18 19:45 95 Venturi Mask 14.0 55 03/27/18 16:00 97.9 70 20 142/74 (96) 96 03/27/18 16:00 Bi-pap 03/27/18 16:00 50 03/27/18 16:00 68 03/27/18 13:23 68 19 97 Full Face 50 Intake and Output 03/27/18 03/28/18 19:00 07:00 Intake Total 700 ml Output Total 350 ml 500 ml Balance 350 ml -500 ml Free Water 150 ml Tube Feeding 550 ml Output Urine Total 350 ml 500 ml # Bowel Movements 4 2 Laboratory Tests Test 03/27/18 16:20 03/28/18 03:45 Arterial Blood pH 7.457 (7.350-7.450) Arterial Blood Partial Pressure CO2 50.5 mmHg (35.0-45.0) H Arterial Blood Partial Pressure O2 52.8 mmHg (75.0-100.0) L Arterial Blood HCO3 34.9 mmol/L (22.0-26.0) H Arterial Blood Oxygen Saturation 89.8 % (95-100) *L Arterial Blood Base Excess 9.5 (-2-2) *H Cruzito Test Positive White Blood Count 13.2 K/UL (4.8-10.8) H Red Blood Count 3.50 M/UL (4.20-5.40) L Hemoglobin 10.7 G/DL (12.0-16.0) L Hematocrit 32.9 % (37.0-47.0) L Mean Corpuscular Volume 94 FL (80-99) Mean Corpuscular Hemoglobin 30.5 PG (27.0-31.0) Mean Corpuscular Hemoglobin Concent 32.5 G/DL (32.0-36.0) Red Cell Distribution Width 13.1 % (11.6-14.8) Platelet Count 161 K/UL (150-450) Mean Platelet Volume 12.9 FL (6.5-10.1) H Neutrophils (%) (Auto) % (45.0-75.0) Lymphocytes (%) (Auto) % (20.0-45.0) Monocytes (%) (Auto) % (1.0-10.0) Eosinophils (%) (Auto) % (0.0-3.0) Basophils (%) (Auto) % (0.0-2.0) Differential Total Cells Counted 100 Neutrophils % (Manual) 92 % (45-75) H Lymphocytes % (Manual) 4 % (20-45) L Monocytes % (Manual) 4 % (1-10) Eosinophils % (Manual) 0 % (0-3) Basophils % (Manual) 0 % (0-2) Band Neutrophils 0 % (0-8) Platelet Estimate Adequate Platelet Morphology Normal Hypochromasia 1+ Prothrombin Time 16.2 SEC (9.30-11.50) H Prothromb Time International Ratio 1.6 (0.9-1.1) H Sodium Level 140 MMOL/L (136-145) Potassium Level 4.6 MMOL/L (3.5-5.1) Chloride Level 102 MMOL/L (98-107) Carbon Dioxide Level 36 MMOL/L (21-32) H Anion Gap 2 mmol/L (5-15) L Blood Urea Nitrogen 28 mg/dL (7-18) H Creatinine 0.6 MG/DL (0.55-1.30) Estimat Glomerular Filtration Rate mL/min (>60) Glucose Level 86 MG/DL (74-106) Calcium Level 9.0 MG/DL (8.5-10.1) Phosphorus Level 2.7 MG/DL (2.5-4.9) Magnesium Level 1.8 MG/DL (1.8-2.4) Height (Feet): 4 Height (Inches): 4.00 Weight (Pounds): 94 General Appearance: no apparent distress Cardiovascular: normal rate Respiratory/Chest: other - Patient on BiPAP Abdominal Exam: normal bowel sounds, non tender, soft, GT site - Clean dry and intact Extremities: non-tender Clifton Brock NP Mar 28, 2018 12:40
--- NOTE | 2018-03-28 13:39 | Cardiology Progress Note ---
Assessment/Plan Assessment/Plan 1. Bronchospasm/stridor seemed to have resolved. 2. History of Parkinson's. 3. Hypertension history. 4. Dementia. 5. History of deep venous thrombosis and pulmonary embolism. 6. Osteoporosis. 7. Diastolic dysfunction. 8. Hyperlipidemia. 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 Subjective ROS Limited/Unobtainable: Yes Subjective back on bipap Objective Last 24 Hour Vital Signs Date Time Temp Pulse Resp B/P (MAP) Pulse Ox O2 Delivery O2 Flow Rate FiO2 03/28/18 12:49 64 23 99 Bi-pap 50 03/28/18 12:42 63 24 100 Full Face 50 03/28/18 12:40 63 24 100 Bi-pap 50 03/28/18 12:00 98.1 60 20 119/73 (88) 100 03/28/18 12:00 Bi-pap 03/28/18 10:54 65 24 95 Full Face 50 03/28/18 10:10 74 24 94 Full Face 50 03/28/18 09:00 50 03/28/18 08:00 Venturi Mask 03/28/18 08:00 55 03/28/18 08:00 97.5 62 22 154/85 (108) 96 03/28/18 07:44 62 03/28/18 07:32 71 22 97 Bi-pap 50 03/28/18 07:29 68 21 98 Full Face 50 03/28/18 07:24 99 Bi-pap 50 03/28/18 07:24 Bi-pap 50 03/28/18 07:23 68 21 98 Bi-pap 50 03/28/18 05:07 67 22 94 Full Face 50 03/28/18 04:00 50 03/28/18 04:00 97.9 60 21 140/75 (96) 94 03/28/18 04:00 Venturi Mask 03/28/18 04:00 60 03/28/18 03:32 59 19 99 Full Face 50 03/28/18 01:31 64 20 99 Bi-pap 50 03/28/18 01:26 65 22 99 Bi-pap 50 03/28/18 01:09 70 23 98 Full Face 50 03/28/18 00:00 55 03/28/18 00:00 Venturi Mask 03/28/18 00:00 74 03/28/18 00:00 98.6 74 21 120/68 (85) 94 03/27/18 23:58 73 23 95 Full Face 50 03/27/18 20:00 55 03/27/18 20:00 70 03/27/18 20:00 98.3 69 20 144/78 (100) 95 03/27/18 20:00 Venturi Mask 03/27/18 19:58 73 20 96 Venturi Mask 14.0 55 03/27/18 19:47 70 20 96 Venturi Mask 14.0 55 03/27/18 19:46 Bi-pap 14.0 55 03/27/18 19:45 95 Venturi Mask 14.0 55 03/27/18 16:00 97.9 70 20 142/74 (96) 96 03/27/18 16:00 Bi-pap 03/27/18 16:00 50 03/27/18 16:00 68 General Appearance: no apparent distress, alert, other - on bipap Neck: supple Cardiovascular: normal rate Respiratory/Chest: crackles/rales Abdomen: non tender Extremities: no swelling Intake and Output 03/27/18 03/28/18 19:00 07:00 Intake Total 700 ml Output Total 350 ml 500 ml Balance 350 ml -500 ml Free Water 150 ml Tube Feeding 550 ml Output Urine Total 350 ml 500 ml # Bowel Movements 4 2 Laboratory Tests Test 03/27/18 16:20 03/28/18 03:45 Arterial Blood pH 7.457 (7.350-7.450) Arterial Blood Partial Pressure CO2 50.5 mmHg (35.0-45.0) H Arterial Blood Partial Pressure O2 52.8 mmHg (75.0-100.0) L Arterial Blood HCO3 34.9 mmol/L (22.0-26.0) H Arterial Blood Oxygen Saturation 89.8 % (95-100) *L Arterial Blood Base Excess 9.5 (-2-2) *H Cruzito Test Positive White Blood Count 13.2 K/UL (4.8-10.8) H Red Blood Count 3.50 M/UL (4.20-5.40) L Hemoglobin 10.7 G/DL (12.0-16.0) L Hematocrit 32.9 % (37.0-47.0) L Mean Corpuscular Volume 94 FL (80-99) Mean Corpuscular Hemoglobin 30.5 PG (27.0-31.0) Mean Corpuscular Hemoglobin Concent 32.5 G/DL (32.0-36.0) Red Cell Distribution Width 13.1 % (11.6-14.8) Platelet Count 161 K/UL (150-450) Mean Platelet Volume 12.9 FL (6.5-10.1) H Neutrophils (%) (Auto) % (45.0-75.0) Lymphocytes (%) (Auto) % (20.0-45.0) Monocytes (%) (Auto) % (1.0-10.0) Eosinophils (%) (Auto) % (0.0-3.0) Basophils (%) (Auto) % (0.0-2.0) Differential Total Cells Counted 100 Neutrophils % (Manual) 92 % (45-75) H Lymphocytes % (Manual) 4 % (20-45) L Monocytes % (Manual) 4 % (1-10) Eosinophils % (Manual) 0 % (0-3) Basophils % (Manual) 0 % (0-2) Band Neutrophils 0 % (0-8) Platelet Estimate Adequate Platelet Morphology Normal Hypochromasia 1+ Prothrombin Time 16.2 SEC (9.30-11.50) H Prothromb Time International Ratio 1.6 (0.9-1.1) H Sodium Level 140 MMOL/L (136-145) Potassium Level 4.6 MMOL/L (3.5-5.1) Chloride Level 102 MMOL/L (98-107) Carbon Dioxide Level 36 MMOL/L (21-32) H Anion Gap 2 mmol/L (5-15) L Blood Urea Nitrogen 28 mg/dL (7-18) H Creatinine 0.6 MG/DL (0.55-1.30) Estimat Glomerular Filtration Rate mL/min (>60) Glucose Level 86 MG/DL (74-106) Calcium Level 9.0 MG/DL (8.5-10.1) Phosphorus Level 2.7 MG/DL (2.5-4.9) Magnesium Level 1.8 MG/DL (1.8-2.4) Herminio Diallo MD Mar 28, 2018 13:39
--- NOTE | 2018-03-28 14:33 | Pulmonology Progress Note ---
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 -H/O Hip Fx -PD -Dementia -Dsyphagia S/P PEG PLAN: -Transfer to [place] -BiPAP PRN only -Titrate down FiO2 to keep SaO2 > 90% -Optimize pulmonary hygiene/mobilize as tolerated -RTC and PRN HHN's -D/C SM -PRN racemic EPI -Observe off Abx -Monitor volumes and renal function, SLIV, PRN Lasix - will give 20 IV x 1 now -GTF's - ONLY WHEN STABLE OFF BiPAP -DVT Px: coumadin -DNAR/DNI D/W daughter D/W RN Subjective Allergies: Coded Allergies: STRAWBERRY (Verified Allergy, Unknown, Rash, 06/29/13) COPIED FROM UNCODED SECTION VALSARTAN (Verified Allergy, Unknown, 03/09/11) Subjective On off VM and BiPAP Stable O2 needs No distress No cough, no wheezing, no FC Objective Last 24 Hour Vital Signs Date Time Temp Pulse Resp B/P (MAP) Pulse Ox O2 Delivery O2 Flow Rate FiO2 03/28/18 12:49 64 23 99 Bi-pap 50 03/28/18 12:42 63 24 100 Full Face 50 03/28/18 12:40 63 24 100 Bi-pap 50 03/28/18 12:00 98.1 60 20 119/73 (88) 100 03/28/18 12:00 Bi-pap 03/28/18 12:00 59 03/28/18 10:54 65 24 95 Full Face 50 03/28/18 10:10 74 24 94 Full Face 50 03/28/18 09:00 50 03/28/18 08:00 Venturi Mask 03/28/18 08:00 55 03/28/18 08:00 97.5 62 22 154/85 (108) 96 03/28/18 07:44 62 03/28/18 07:32 71 22 97 Bi-pap 50 03/28/18 07:29 68 21 98 Full Face 50 03/28/18 07:24 99 Bi-pap 50 03/28/18 07:24 Bi-pap 50 03/28/18 07:23 68 21 98 Bi-pap 50 03/28/18 05:07 67 22 94 Full Face 50 03/28/18 04:00 50 03/28/18 04:00 97.9 60 21 140/75 (96) 94 03/28/18 04:00 Venturi Mask 03/28/18 04:00 60 03/28/18 03:32 59 19 99 Full Face 50 03/28/18 01:31 64 20 99 Bi-pap 50 03/28/18 01:26 65 22 99 Bi-pap 50 03/28/18 01:09 70 23 98 Full Face 50 03/28/18 00:00 55 03/28/18 00:00 Venturi Mask 03/28/18 00:00 74 03/28/18 00:00 98.6 74 21 120/68 (85) 94 03/27/18 23:58 73 23 95 Full Face 50 03/27/18 20:00 55 03/27/18 20:00 70 03/27/18 20:00 98.3 69 20 144/78 (100) 95 03/27/18 20:00 Venturi Mask 03/27/18 19:58 73 20 96 Venturi Mask 14.0 55 03/27/18 19:47 70 20 96 Venturi Mask 14.0 55 03/27/18 19:46 Bi-pap 14.0 55 03/27/18 19:45 95 Venturi Mask 14.0 55 03/27/18 16:00 97.9 70 20 142/74 (96) 96 03/27/18 16:00 Bi-pap 03/27/18 16:00 50 03/27/18 16:00 68 Intake and Output 03/27/18 03/28/18 19:00 07:00 Intake Total 700 ml Output Total 350 ml 500 ml Balance 350 ml -500 ml Free Water 150 ml Tube Feeding 550 ml Output Urine Total 350 ml 500 ml # Bowel Movements 4 2 General Appearance: cachetic HEENT: normocephalic, atraumatic, anicteric, mucous membranes moist Respiratory/Chest: chest wall non-tender, lungs clear, normal breath sounds, no respiratory distress, no accessory muscle use Cardiovascular: normal peripheral pulses, normal rate, regular rhythm Abdomen: normal bowel sounds, soft, non tender, no organomegaly, non distended , no mass, other - GT Extremities: no cyanosis, no clubbing, no edema Laboratory Tests 03/27/18 16:20: Arterial Blood pH 7.457H, Arterial Blood Partial Pressure CO2 50.5H, Arterial Blood Partial Pressure O2 52.8L, Arterial Blood HCO3 34.9H, Arterial Blood Oxygen Saturation 89.8*L, Arterial Blood Base Excess 9.5*H, Cruzito Test Positive 03/28/18 03:45: White Blood Count 13.2H, Red Blood Count 3.50L, Hemoglobin 10.7L, Hematocrit 32.9L, Mean Corpuscular Volume 94, Mean Corpuscular Hemoglobin 30.5, Mean Corpuscular Hemoglobin Concent 32.5, Red Cell Distribution Width 13.1, Platelet Count 161, Mean Platelet Volume 12.9H, Neutrophils (%) (Auto) , Lymphocytes (%) (Auto) , Monocytes (%) (Auto) , Eosinophils (%) (Auto) , Basophils (%) (Auto) , Differential Total Cells Counted 100, Neutrophils % (Manual) 92H, Lymphocytes % (Manual) 4L, Monocytes % (Manual) 4, Eosinophils % (Manual) 0, Basophils % ( Manual) 0, Band Neutrophils 0, Platelet Estimate Adequate, Platelet Morphology Normal, Hypochromasia 1+, Prothrombin Time 16.2H, Prothromb Time International Ratio 1.6H, Sodium Level 140, Potassium Level 4.6, Chloride Level 102, Carbon Dioxide Level 36H, Anion Gap 2L, Blood Urea Nitrogen 28H, Creatinine 0.6, Estimat Glomerular Filtration Rate , Glucose Level 86, Calcium Level 9.0, Phosphorus Level 2.7, Magnesium Level 1.8 Current Medications Medications (Trade) Dose Ordered Sig/Marcel Route PRN Reason Start Time Stop Time Status Last Admin Dose Admin Acetaminophen (Tylenol) 650 mg Q4H PRN GT Mild Pain/Temp > 100.5 03/21/18 04:15 3/13/19 20:14 03/25/18 12:25 Artificial Tears (Akwa-Tears) 1 drop 0730,1000,1230,1500 BOTH EYES 03/21/18 07:30 04/15/18 07:29 03/28/18 09:54 Ascorbic Acid (Vitamin C) 500 mg DAILY@0930 GT 03/21/18 09:30 04/20/18 09:29 03/28/18 09:54 Calcium Carbonate (Os-Wyatt) 2,500 mg BID@0930,1700 GT 03/21/18 09:30 04/20/18 09:29 03/28/18 09:54 Carbidopa/Levodopa (Sinemet 25/250) 1 tab BID@0730,1230 GT 03/21/18 07:30 04/20/18 07:29 03/28/18 12:40 Dextrose (Dextrose 50%) 25 ml Q30M PRN IV Hypoglycemia 03/21/18 03:30 04/13/18 12:59 Dextrose (Dextrose 50%) 50 ml Q30M PRN IV Hypoglycemia 03/21/18 03:30 04/13/18 12:59 Diphenhydramine HCl (Benadryl) 25 mg Q6H PRN GT Itching 03/21/18 08:30 04/19/18 20:29 Docusate Sodium (Colace) 200 mg DAILY@0730 GT 03/21/18 07:30 04/20/18 07:29 03/28/18 08:15 EZETIMIBE (Zetia) 10 mg DAILY@1700 GT 03/21/18 17:00 04/19/18 20:59 03/27/18 17:22 Hydralazine HCl (Apresoline) 5 mg Q4H PRN IV SBP >170 03/21/18 05:00 04/14/18 12:59 Ipratropium [place] (Atrovent) 500 mcg Q4H PRN HHN Shortness of Breath 03/27/18 15:00 04/01/18 14:59 Ipratropium [place] (Atrovent) 500 mcg Q6HRT HHN 03/27/18 19:00 04/01/18 18:59 03/28/18 12:49 Levothyroxine Sodium (Synthroid) 112 mcg DAILY@0630 GT 03/21/18 06:30 04/14/18 06:29 03/28/18 06:08 Magnesium Hydroxide (Mom) 30 ml HSPRN PRN GT Constipation 03/21/18 20:30 04/13/18 20:59 03/22/18 08:12 Mirtazapine (Remeron) 15 mg DAILY@1800 GT 03/21/18 18:00 04/19/18 20:59 03/27/18 17:23 Multivitamins (Multivitamins W/ Minerals 15ml Liquid) 15 ml DAILY GT 03/21/18 09:00 04/20/18 08:59 03/28/18 08:16 Ondansetron HCl (Zofran) 4 mg Q6H PRN IVP Nausea & Vomiting 03/21/18 05:30 04/13/18 11:19 Pantoprazole (Protonix) 40 mg DAILY@0730 IV 03/21/18 07:30 04/15/18 07:29 03/28/18 08:16 Polyethylene Glycol (Miralax) 17 gm BEDTIME ORAL 03/25/18 21:00 04/24/18 20:59 03/27/18 20:20 Racepinephrine (S2) 0.5 ml Q4H PRN HHN STRIDOR 03/21/18 03:30 04/14/18 11:19 Ropinirole HCl (Requip) 1 mg BID@0730,1230 GT 03/21/18 07:30 04/19/18 20:14 03/28/18 12:40 Warfarin Sodium (Coumadin per pharmacy) 1 ea DAILY PRN MISC Per rx protocol 03/21/18 09:00 04/19/18 11:59 Warfarin Sodium (Coumadin) 6 mg COUMADIN ORAL 03/28/18 20:00 03/28/18 21:00 Kevyn Caraballo MD Mar 28, 2018 14:33
[2018-03-28 16:00] VITALS: BP 169/88
[2018-03-28 20:00] VITALS: BP 95/46
[2018-03-28] MEDS ORDERED: Warfarin Sodium 3mg ORAL SCH (20:00)
[2018-03-28] MEDS: Miralax 17gm pkt ORAL SCH (20:10)
--- NOTE | 2018-03-28 20:59 | Neurology Progress Note ---
Interim History Interim History Interim History Ms. Benjamin feels unwell. She is very sleepy can can barely keep her eyes open. She is not verbal today. She is on an O2 rebreather mask and more comfortable. She continues to be generally weak. She denies any new neurologic problems. Review of Systems Neuro Review of Systems Unable to obtain. Objective Physical Exam Last Vital Signs Date Time Temp Pulse Resp B/P (MAP) Pulse Ox O2 Delivery O2 Flow Rate FiO2 03/28/18 20:00 Non-Rebreather 15.0 03/28/18 20:00 98.9 57 19 95/46 (62) 100 03/28/18 20:00 100 Laboratory Tests Test 03/28/18 03:45 White Blood Count 13.2 K/UL (4.8-10.8) H Red Blood Count 3.50 M/UL (4.20-5.40) L Hemoglobin 10.7 G/DL (12.0-16.0) L Hematocrit 32.9 % (37.0-47.0) L Mean Corpuscular Volume 94 FL (80-99) Mean Corpuscular Hemoglobin 30.5 PG (27.0-31.0) Mean Corpuscular Hemoglobin Concent 32.5 G/DL (32.0-36.0) Red Cell Distribution Width 13.1 % (11.6-14.8) Platelet Count 161 K/UL (150-450) Mean Platelet Volume 12.9 FL (6.5-10.1) H Neutrophils (%) (Auto) % (45.0-75.0) Lymphocytes (%) (Auto) % (20.0-45.0) Monocytes (%) (Auto) % (1.0-10.0) Eosinophils (%) (Auto) % (0.0-3.0) Basophils (%) (Auto) % (0.0-2.0) Differential Total Cells Counted 100 Neutrophils % (Manual) 92 % (45-75) H Lymphocytes % (Manual) 4 % (20-45) L Monocytes % (Manual) 4 % (1-10) Eosinophils % (Manual) 0 % (0-3) Basophils % (Manual) 0 % (0-2) Band Neutrophils 0 % (0-8) Platelet Estimate Adequate Platelet Morphology Normal Hypochromasia 1+ Prothrombin Time 16.2 SEC (9.30-11.50) H Prothromb Time International Ratio 1.6 (0.9-1.1) H Sodium Level 140 MMOL/L (136-145) Potassium Level 4.6 MMOL/L (3.5-5.1) Chloride Level 102 MMOL/L (98-107) Carbon Dioxide Level 36 MMOL/L (21-32) H Anion Gap 2 mmol/L (5-15) L Blood Urea Nitrogen 28 mg/dL (7-18) H Creatinine 0.6 MG/DL (0.55-1.30) Estimat Glomerular Filtration Rate mL/min (>60) Glucose Level 86 MG/DL (74-106) Calcium Level 9.0 MG/DL (8.5-10.1) Phosphorus Level 2.7 MG/DL (2.5-4.9) Magnesium Level 1.8 MG/DL (1.8-2.4) Neurologic Exam Objective PHYSICAL EXAMINATION: GENERAL: She is a well-developed, cachectic, ill-looking, lady, lying in bed, in no distress. HEAD: Normocephalic and atraumatic. EENT: Examination benign. NECK: No neck rigidity was observed. NEUROLOGIC EXAMINATION: MENTAL STATUS EXAMINATION: She was lethargic. She would only arouse for a few seconds at a time. She was unable to cooperate for further mental status testing. SPEECH: She was non verbal. LANGUAGE: Could not be tested. CRANIAL NERVE EXAMINATION: II: She did blink to threat when aroused. III, IV & : The external ocular movements were present and the pupils 3 mm in diameter and did not react to light. V & VII: The corneal reflex was diminished on the right side compared to the left. In addition, she also had a right seventh central facial paresis. VIII: She seemed to be able to hear and had no nystagmus. IX: The palate moved symmetrically on phonation. X: She had no hoarseness of voice. XI: The sternocleidomastoids and trapezii functioned. XII: The tongue was in the midline without any fasciculations or atrophy. MOTOR SYSTEM: The tone was increased in all four extremities with a combination of rigidity and gegenhalten. Examination of muscle mass revealed generalized muscle wasting. In addition, she also had bilateral ankle cord contractures. Examination of power was exceedingly difficult to perform because of her inability to perform. 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 SENSORY EXAMINATION: She responded appropriately to deep pain in all four extremities. REFLEXES: Trace+ and bilaterally symmetrical at the biceps, triceps, brachioradialis, and knees and 0 at both ankles. The plantar responses were flexor bilaterally. COORDINATION, STANCE & GAIT: Could not be tested. ABNORMAL MOVEMENTS: Tremor (4-5 Hz): G 0/4, Rigidity: G 1/4 Bradykinesia: G 1/4 Hypomimia: G 2/4. Impression/Recommendations Diagnostic Impression 1. Ms. Danelle Benjamin is an 88-year-old, right-handed, lady, with a past history of multiple medical problems, who was hospitalized on 2018 for respiratory problems related to aspiration pneumonia and fluid overload. She has since been treated for these problems and has improved, but has recently been moaning and groaning and been unable to let her needs to be known. 2. She indicates that she feels unwell. She is very sleepy can can barely keep her eyes open. She is not verbal today. She is on an O2 rebreather mask and more comfortable. She continues to be generally weak. She denies any new neurologic problems. 3. On neurological examination, at this time, she is lethargic. She can only arouse for a few seconds at a time. She is unable to cooperate for further mental status testing. She is non verbal. 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 4. Her latest laboratory data on my initial evaluation revealed that her WBC count was elevated at 12,300. She was mildly anemic with a hemoglobin of 11 G. The chemistry panel revealed that her BUN was elevated at 36 with a normal creatinine at 0.8 and her last proBNP on 03/23/2018 was 2774. 5. 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 6. The moaning and groaning were due to the fact that she was uncomfortable for reasons that she could not express. However, the moaning and groaning has stopped. 7. She is more comfortable but much more encephalopathic. Recommendations 1. Continue present management. 2. Keep comfortable. 3. Observe closely. Yobany Menard M.D., M.S.P.H. Yobany Menard MD Mar 28, 2018 20:59
[2018-03-29] VITALS: BP 138/64
[2018-03-29] MEDS: Ipratropium 0.02% Inh Soln 2.5ml UD HHN SCH ×2 (00:59→07:57)
[2018-03-29 04:00] VITALS: BP 120/60
[2018-03-29 06:16] LABS: INR 1.6 (0.9-1.1)
[2018-03-29 06:23] LABS: HEMATOCRIT 30.4 % (37.0-47.0); HEMOGLOBIN 9.8 G/DL (12.0-16.0); MEAN CORPUSCULAR VOLUME 94 FL (80-99); PLATELET COUNT 153 K/UL (150-450); RED BLOOD COUNT 3.24 M/UL (4.20-5.40); RED CELL DISTRIBUTION WIDTH 13.4 % (11.6-14.8); WHITE BLOOD COUNT 10.7 K/UL (4.8-10.8)
[2018-03-29 06:40] LABS: ANION GAP 2 mmol/L (5-15); BLOOD UREA NITROGEN 26 mg/dL (7-18); CALCIUM 8.9 MG/DL (8.5-10.1); CARBON DIOXIDE 38 MMOL/L (21-32); CHLORIDE 101 MMOL/L (98-107); CREATININE 0.6 MG/DL (0.55-1.30); POTASSIUM 4.3 MMOL/L (3.5-5.1); SODIUM 141 MMOL/L (136-145)
[2018-03-29] MEDS: Artificial Tears 1.4% Op Soln BOTH EYES SCH ×4 (07:30→15:22)
[2018-03-29 08:00] VITALS: BP 127/69
[2018-03-29] MEDS: Multivitamins W/Minerals 15 ML UDC GT SCH (08:56)
[2018-03-29] MEDS: Pantoprazole Inj IV SCH (08:56)
[2018-03-29] MEDS: Docusate 100mg/10ml Liq GT SCH (08:57)
[2018-03-29] MEDS: Levodopa/Carbidopa 25/250 tab GT SCH ×2 (08:58→12:30)
[2018-03-29] MEDS: Ascorbic Acid 500mg tab GT SCH (08:58)
[2018-03-29 12:00] VITALS: BP 106/72
--- NOTE | 2018-03-29 12:38 | GI Progress Note ---
Assessment/Plan Problems: (1) Encounter for PEG (percutaneous endoscopic gastrostomy) ICD Codes: Z43.1 - Encounter for attention to gastrostomy SNOMED: 787790284, 056681764 (2) Severe malnutrition ICD Codes: E43 - Unspecified severe protein-calorie malnutrition SNOMED: 63610822 (3) Failure to thrive SNOMED: 85739763 (4) Dysphasia ICD Codes: R47.02 - Dysphasia SNOMED: 83086673 (5) Dehydration ICD Codes: E86.0 - Dehydration SNOMED: 84810852 (6) Hiatal hernia ICD Codes: K44.9 - Diaphragmatic hernia without obstruction or gangrene SNOMED: 41163149 Status: unchanged Status Narrative Discussed with Dr. Horta. Assessment/Plan SUMMARY OF FINDINGS: 1. Large hiatal hernia. 2. Gastritis. 3. Status post successful PEG placement. RECOMMENDATIONS: Abdominal binder. Elevate head of the bed at all times. G-tube flush. G-tube care. GTFs per RD to goal abx Reglan as needed for GI motility supportive care miralax The patient was seen and examined at bedside and all new and available data was reviewed in the patients chart. I agree with the above findings, impression and plan. (Patient seen earlier today. Signature stamp does not reflect patient encounter time.). - Chuck Horta MD Subjective Subjective limited Objective Last 24 Hour Vital Signs Date Time Temp Pulse Resp B/P (MAP) Pulse Ox O2 Delivery O2 Flow Rate FiO2 03/29/18 08:40 68 18 95 Facial 60 03/29/18 08:00 98.0 68 17 127/69 (88) 98 03/29/18 08:00 50 03/29/18 08:00 Bi-pap 03/29/18 08:00 61 03/29/18 07:10 60 20 94 Facial 60 03/29/18 07:10 60 22 96 Bi-pap 60 03/29/18 07:00 94 Bi-pap 50 03/29/18 07:00 60 20 94 Bi-pap 50 03/29/18 07:00 Bi-pap 50 03/29/18 05:12 51 18 98 Facial 50 03/29/18 04:00 97.9 48 17 120/60 (80) 98 03/29/18 04:00 Bi-pap 03/29/18 04:00 50 03/29/18 04:00 49 03/29/18 03:53 50 18 100 Facial 50 03/29/18 01:45 54 18 100 Facial 50 03/29/18 01:09 60 21 100 Bi-pap 50 03/29/18 00:59 54 16 100 Bi-pap 50 03/29/18 00:00 98.3 53 17 138/64 (88) 100 03/29/18 00:00 50 03/29/18 00:00 Bi-pap 03/29/18 00:00 51 03/28/18 23:19 52 21 99 Facial 50 03/28/18 21:10 57 19 98 Facial 50 03/28/18 20:00 Non-Rebreather 15.0 03/28/18 20:00 98.9 57 19 95/46 (62) 100 03/28/18 20:00 62 03/28/18 20:00 15.0 100 03/28/18 19:36 63 19 99 Non-Rebreather 15.0 03/28/18 19:33 100 Non-Rebreather 15.0 03/28/18 19:33 Non-Rebreather 15.0 03/28/18 19:25 64 20 100 Non-Rebreather 15.0 03/28/18 16:00 61 03/28/18 16:00 15.0 100 03/28/18 16:00 98.1 85 18 169/88 (115) 97 03/28/18 16:00 Non-Rebreather 15.0 03/28/18 12:49 64 23 99 Bi-pap 50 03/28/18 12:42 63 24 100 Full Face 50 03/28/18 12:40 63 24 100 Bi-pap 50 Intake and Output 03/28/18 03/29/18 19:00 07:00 Intake Total 480 ml 250 ml Output Total 400 ml 400 ml Balance 80 ml -150 ml Free Water 0 ml Tube Feeding 300 ml 150 ml Blood Product 180 ml Other 100 ml Output Urine Total 400 ml 400 ml # Bowel Movements 4 2 Laboratory Tests Test 03/29/18 01:20 03/29/18 03:15 Arterial Blood pH 7.481 (7.350-7.450) Arterial Blood Partial Pressure CO2 54.3 mmHg (35.0-45.0) H Arterial Blood Partial Pressure O2 107.3 mmHg (75.0-100.0) H Arterial Blood HCO3 39.6 mmol/L (22.0-26.0) H Arterial Blood Oxygen Saturation 98.3 % (95-100) Arterial Blood Base Excess 14.2 (-2-2) *H Cruzito Test Positive White Blood Count 10.7 K/UL (4.8-10.8) Red Blood Count 3.24 M/UL (4.20-5.40) L Hemoglobin 9.8 G/DL (12.0-16.0) L Hematocrit 30.4 % (37.0-47.0) L Mean Corpuscular Volume 94 FL (80-99) Mean Corpuscular Hemoglobin 30.4 PG (27.0-31.0) Mean Corpuscular Hemoglobin Concent 32.4 G/DL (32.0-36.0) Red Cell Distribution Width 13.4 % (11.6-14.8) Platelet Count 153 K/UL (150-450) Mean Platelet Volume 11.3 FL (6.5-10.1) H Neutrophils (%) (Auto) % (45.0-75.0) Lymphocytes (%) (Auto) % (20.0-45.0) Monocytes (%) (Auto) % (1.0-10.0) Eosinophils (%) (Auto) % (0.0-3.0) Basophils (%) (Auto) % (0.0-2.0) Prothrombin Time 16.7 SEC (9.30-11.50) H Prothromb Time International Ratio 1.6 (0.9-1.1) H Sodium Level 141 MMOL/L (136-145) Potassium Level 4.3 MMOL/L (3.5-5.1) Chloride Level 101 MMOL/L (98-107) Carbon Dioxide Level 38 MMOL/L (21-32) H Anion Gap 2 mmol/L (5-15) L Blood Urea Nitrogen 26 mg/dL (7-18) H Creatinine 0.6 MG/DL (0.55-1.30) Estimat Glomerular Filtration Rate mL/min (>60) Glucose Level 75 MG/DL (74-106) Calcium Level 8.9 MG/DL (8.5-10.1) Height (Feet): 4 Height (Inches): 4.00 Weight (Pounds): 94 General Appearance: no apparent distress, thin Cardiovascular: normal rate Respiratory/Chest: normal breath sounds, no respiratory distress Abdominal Exam: normal bowel sounds, non tender, soft, GT site Extremities: non-tender Clifton Brock NP Mar 29, 2018 12:38
[2018-03-29] MEDS ORDERED: Albuterol/Ipratropium 3ml neb HHN SCH (13:00)
[2018-03-29 16:00] VITALS: BP 110/75
[2018-03-29] MEDS ORDERED: Warfarin Sod 3 MG, Warfarin Sod 4 MG GT SCH ×2 (20:00)
--- NOTE | 2018-03-30 12:25 | Discharge Summary ---
Discharge Summary Discharge Summary _ DATE OF ADMISSION: 03/14/2018 DATE OF DISCHARGE: 03/29/2018 DISCHARGED BY: Dr. Herminio Diallo CONSULTANTS: Dr. Kevyn Siddiqui BRIEF HOSPITAL COURSE: Patient is an 88-year-old female, who resides in a [facility] facility. She presented to the hospital because of increasing sounds with breathing. Patient was with her daughter. Daughter noticed patient had increased difficulty breathing. She was given several rounds of breathing treatment and symptoms did not improve. Medical history was significant for Parkinson syndrome, right hemiparesis, hypothyroidism, hyperlipidemia, history of DVT on anticoagulation, osteoporosis, cognitive impairment, abdominal wall and left inguinal hernia. In the emergency room, she was evaluated by the emergency physician, and was noted to have some stridor. Blood work did not show any leukocytosis, hemoglobin and hematocrit were stable. Troponin was negative. ProBNP was elevated at 2134. She was given steroid and breathing treatment. She was given diuretics because of her edema. ABG showed slight CO2 retention. She was eventually started on BiPAP. Influenza screen was negative. Chest x-ray showed dilated esophagus. She was admitted to ICU for evaluation of bronchospasm and stridor. She was placed on n.p.o. She was seen by c d area supervisor. Patient presented with respiratory distress and bronchospasms with stridor likely secondary to aspiration event/pneumonitis in the setting of decompensated heart failure and pulmonary edema. She was continued on Solu-Medrol IV. She was placed on strict aspiration precaution. She was given [id number] nebulizer treatment. She was continued on Coumadin for anticoagulation. She was transferred out of ICU. Confirmed with daughter, patient is DNR/DNI. She was tapered off BiPAP support. Patient was fed and went into respiratory distress. Stat ABG showed severe acidosis. She was given additional Solu- Medrol dose. She was given Lasix IV and racemic epinephrine. She was placed back on BiPAP and was transferred back to ICU the following day. She was eventually started on Zosyn for aspiration coverage. ENT was consulted. On 03/17/2018, she underwent fiberoptic laryngoscopy by Dr. Kyler Siddiqui. Findings showed poor control of secretions. She was continued on n.p.o. Recommended PEG tube feeding. GI was consulted. Unable to insert Dobbhoff catheter x2. Patient would eventually need PEG tube placement. Coumadin was placed on hold. Video swallow examination was positive for penetration of nectar thick liquid barium. There was early pooling in the vallecula. No aspiration demonstrated. On 03/20/2018, she underwent upper endoscopy with PEG tube placement by Dr Horta. Findings showed a large hiatal hernia and presence of gastritis. She was eventually started on G-tube feeding with strict aspiration precaution. She was taken off IV fluids. She was resumed on Coumadin. Steroids were tapered. Patient looked comfortable however was agitated. Neurologist was consulted. Patient had been moaning, groaning being and unable to express herself. On neuro examination, patient was oriented to self only, unable to cooperate for further mental status testing. She has significant dysarthria, significant aphasia, right seventh cranial facial paralysis, quadriparesis involving the right more than the left-in the lower extremities more than the upper extremities. There was moderate rigidity ,hypomimia, and bradykinesia. She was assessed to have advanced cognitive dysfunction of a degenerative nature and a parkinsonian syndrome. She also had focal neurological dysfunction related to cerebrovascular disease. She was observed off antibiotic treatment. Blood culture did not isolate any growth. She was unable to be fully weaned off BiPAP support. She was on and off Ventimask and BiPAP. She had stable O2 needs. Recommended no feeding while on BiPAP. She was eventually transferred to [facility]. 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 DISCHARGE MEDICATIONS: Refer to Discharge Medication List. I have been assigned to complete a discharge summary on this account, I was not involved with the patient's management. Sania Mendez NP Mar 30, 2018 12:25
== END 2018-03-29 19:40 | DRG 291 ==
LOC: EMR 19:50 → ICU 20:30 → EDBEDREQSVC 21:08 → EDBEDREQ 21:14 → 2W 03-15 12:15 → ICU 03-16 10:12 → 2W 03-21 02:31
PROC: 0CJS8ZZ Inspection of Larynx, Via Natural or Artificial Opening Endoscopic (ICD-10-PCS; principal; 2018-03-17)
PROC: 0DH63UZ Insertion of Feeding Device into Stomach, Percutaneous Approach (ICD-10-PCS; 2018-03-20 11:04)
PROC: 0DJ08ZZ Inspection of Upper Intestinal Tract, Via Natural or Artificial Opening Endoscopic (ICD-10-PCS; 2018-03-20 11:04)
DX: I11.0 Hypertensive heart disease with heart failure (principal); J96.01 Acute respiratory failure with hypoxia; J69.0 Pneumonitis due to inhalation of food and vomit; E43 Unspecified severe protein-calorie malnutrition; J96.22 Acute and chronic respiratory failure with hypercapnia; G81.91 Hemiplegia, unspecified affecting right dominant side; G93.40 Encephalopathy, unspecified; I50.33 Acute on chronic diastolic (congestive) heart failure; J98.01 Acute bronchospasm; Z86.711 Personal history of pulmonary embolism; Z79.01 Long term (current) use of anticoagulants; G31.84 Mild cognitive impairment of uncertain or unknown etiology; G20 Parkinson's disease; F02.80 Dementia in other diseases classified elsewhere, unspecified severity, without behavioral disturbance, psychotic disturbance, mood disturbance, and anxiety; Z86.718 Personal history of other venous thrombosis and embolism; E03.9 Hypothyroidism, unspecified; M81.0 Age-related osteoporosis without current pathological fracture; R13.10 Dysphagia, unspecified; K44.9 Diaphragmatic hernia without obstruction or gangrene; K29.70 Gastritis, unspecified, without bleeding; R62.7 Adult failure to thrive; Z68.24 Body mass index [BMI] 24.0-24.9, adult; E86.0 Dehydration
CPT/HCPCS: 36415; 36600; 71045; 74018; 74230; 80048; 80053; 82550; 82553; 82803; 82962; 83605; 83735; 83880; 84100; 84484; 85007; 85025; 85610; 85730; 86710; 87040; 87081; 93005; 93306; 94003; 94150; 94640; 94660; 94664; 94760; 96374; 96375; 99285; J2250; J7620

== ENCOUNTER 2018-07-08 07:02 | Inpatient (IN) | payer MEDICARE, BC ==
[~2018-07-08] VITALS: Ht 167.6 cm; Wt 49.0 kg
[2018-07-08] VITALS (7 sets, daily range): BP systolic 103–145; BP diastolic 56–88
[~2018-07-08 07:02] MED LIST changes: +AMLODIPINE BES2.5 MG ORAL; +CALCIUM500 M2 GT; +CULTURELLE1 EAC1 GT; +DOCUSATE SODIU100 MG ORAL; +DUONEB 0.5-3(2.53 ML HHN; +MULTIVITAMINS1 EAC2 ORAL; +ROPINIROLE HCL1 MG GT; +SIMVASTATIN20 MG GT; -SIMVASTATIN20 MG ORAL; +SINEMET 25-2501 EACH GT; +SYNTHROID112 MCG GT; -SYNTHROID112 MCG ORAL; +Solu-MEDROL 125mg Inj IVP ONE; +VITAMIN C500 M1 ORAL; +WARFARIN SODIUM6 MG ORAL; +ZETIA10 MG GT; -ZETIA10 MG ORAL
--- NOTE | 2018-07-08 07:03 | NUR ---
ED Nurse Note: paTIENT biba FROM snf WITH COMPLAINTS OF SOB, WHEEZING, AND DISTRESS. PATIENT IS DNR.
--- NOTE | 2018-07-08 07:05 | NUR ---
ED Nurse Note: RECEIVED PT. ON BED. PT. HAD A BM . KEPT CLEAN AND DRY. PRESSURE ULCER NOTED ON THE SACRAL AREA. PT. IS USING ACCESSORY MUSCLE DURING RESPIRATION. DEEP RESPIRATIONS NOTED Addendum: 07/08/18 at 0844 by SHAVON ED Nurse Note: PT. WAS BROUGHT IN BY AMBULANCE FROM [facility] WITH NON-REBREATHER MASK WITH 15l OF OXYGEN ON
[2018-07-08] MEDS ORDERED: Solu-MEDROL 125mg Inj ONE (07:30)
[2018-07-08 07:38] LABS: ANION GAP 4 mmol/L (5-15); BLOOD UREA NITROGEN 45 mg/dL (7-18); CARBON DIOXIDE 30 MMOL/L (21-32); CHLORIDE 126 MMOL/L (98-107); CREATININE 0.6 MG/DL (0.55-1.30); POTASSIUM 4.3 MMOL/L (3.5-5.1); SODIUM 160 MMOL/L (136-145)
[2018-07-08 07:45] LABS: BASOPHILS % (AUTO) 0.8 % (0.0-2.0); EOSINOPHILS % (AUTO) 10.9 % (0.0-3.0); HEMATOCRIT 36.1 % (37.0-47.0); HEMOGLOBIN 10.4 G/DL (12.0-16.0); LYMPHOCYTES % (AUTO) 19.5 % (20.0-45.0); MEAN CORPUSCULAR VOLUME 96 FL (80-99); MONOCYTES % (AUTO) 4.9 % (1.0-10.0); NEUTROPHILS % (AUTO) 63.9 % (45.0-75.0); PLATELET COUNT 114 K/UL (150-450); RED BLOOD COUNT 3.76 M/UL (4.20-5.40); RED CELL DISTRIBUTION WIDTH 22.9 % (11.6-14.8)
[2018-07-08] MEDS ORDERED: Ipratropium 0.02% Inh Soln 2.5ml UD ONE ×2 (07:47→08:18)
[2018-07-08] MEDS ORDERED: Albuterol ud Inhalation ONE ×2 (07:47→08:18)
[2018-07-08 07:52] LABS: ALANINE AMINOTRANSFERASE 67 U/L (12-78); ALBUMIN 1.8 G/DL (3.4-5.0); ALBUMIN/GLOBULIN RATIO 0.4 (1.0-2.7); ALKALINE PHOSPHATASE 117 U/L (46-116); ASPARTATE AMINO TRANSFERASE 57 U/L (15-37); BILIRUBIN,TOTAL 0.2 MG/DL (0.2-1.0); CKMB 1.7 NG/ML (0.0-3.6); CREATINE KINASE 43 U/L (26-308)
[2018-07-08] MEDS: Ipratropium 0.02% Inh Soln 2.5ml UD HHN SCH ×3 (07:56→08:28)
[2018-07-08] MEDS: Albuterol ud Inhalation HHN SCH ×3 (07:56→08:28)
--- NOTE | 2018-07-08 07:58 | Diagnostic Imaging Report ---
EXAM: XR Chest, 1 View. CLINICAL HISTORY: COUGH TECHNIQUE: Frontal view of the chest. Exam limited by patient positioning. COMPARISON: 03/27/18 FINDINGS: Lungs: Moderate right hemithorax volume loss with atelectasis or consolidation in the right upper lobe. Pleural spaces: Unremarkable. No pneumothorax. Heart: Mild cardiomegaly. Mediastinum: Right PICC in place with tip at the projection of the right SVC. Bones: No gross fracture. IMPRESSION: Exam limited due to patient positioning. Atelectasis versus consolidation in the right upper lobe. Consider further evaluation with CT chest.
[2018-07-08 08:07] LABS: APPEARANCE,URINE CLOUDY; BILIRUBIN, URINE NEGATIVE (NEGATIVE); GLUCOSE, URINE (UA) NEGATIVE (NEGATIVE); KETONES,URINE 1+ (NEGATIVE); LEUKOCYTE ESTERASE ,URINE 3+ (NEGATIVE); NITRITE,URINE NEGATIVE (NEGATIVE); PH,URINE 5 (4.5-8.0); PROTEIN,URINE 3+ (NEGATIVE); UROBILINOGEN,URINE NORMAL MG/DL (0.0-1.0)
[2018-07-08] MEDS ORDERED: Azithromycin 500 MG in NS 275 ML IV ONE (08:15)
[2018-07-08] MEDS ORDERED: Piperacillin/Tazobactam 3.375 GM in NS 110 ML IVPB ONE (08:15)
--- NOTE | 2018-07-08 08:17 | Emergency Room Report ---
History of Present Illness General Chief Complaint: Dyspnea/Respdistress Source: Family Member Present Illness HPI 88-year-old female presents ED for evaluation. Brought in by EMS for shortness of breath. Noted by nursing staff to start this morning. History of COPD. O2 sats low. Started on nebulizer treatments by EMS. Patient is nonverbal at baseline. Noted have thick secretions. Unable to provide any additional history at this time. No other aggravating relieving factors. No other associated symptoms Allergies: Coded Allergies: STRAWBERRY (Verified Allergy, Unknown, Rash, 06/29/13) COPIED FROM UNCODED SECTION VALSARTAN (Verified Allergy, Unknown, 03/09/11) Patient History Past Medical History: HTN, COPD, GERD, CVA/TIA, dementia, psych hx Pertinent Family History: none Social History: Denies: smoking, alcohol use, drug use Last Menstrual Period: na Now: No Immunizations: UTD Reviewed Nursing Documentation: PMH: Agreed; PSxH: Agreed Nursing Documentation-PMH Hx Cardiac Problems: Yes - P.E. Hx Hypertension: Yes Hx COPD: Yes - CHRONIC RESP FAILURE Hx Cancer: No Hx Gastrointestinal Problems: Yes - GASTROSTOMY; GERD History Of Psychiatric Problem: Yes - DEMENTIA Hx Neurological Problems: Yes - PARKINSONS; MUSCLE WEAKNESS Hx Transient Ischemic Attacks: Yes Hx Dementia: Yes Hx Parkinson's Disease: Yes Hx Multiple Sclerosis: Yes Hx Memory Loss: Yes Hx Tremors: Yes Hx Weakness: Yes Review of Systems All Other Systems: limited Physical Exam Vital Signs Date Time Temp Pulse Resp B/P (MAP) Pulse Ox O2 Delivery O2 Flow Rate FiO2 07/08/18 06:44 Room Air 07/08/18 07:05 90 13 07/08/18 07:05 129/88 94 Sp02 EP Interpretation: reviewed, normal General Appearance: cachetic, lethargic Head: normocephalic, atraumatic Eyes: bilateral eye normal inspection, bilateral eye PERRL ENT: hearing grossly normal, normal pharynx, no angioedema, normal voice Neck: full range of motion, supple/symm/no masses Respiratory: chest non-tender, decreased breath sounds, crackles, speaking full sentences, wheezing Cardiovascular #1: regular rate, rhythm, no edema Cardiovascular #2: 2+ carotid (R), 2+ carotid (L), 2+ radial (R), 2+ radial (L) , 2+ dorsalis pedis (R), 2+ dorsalis pedis (L) Gastrointestinal: normal bowel sounds, non tender, soft, non-distended, no guarding, no rebound Rectal: deferred Genitourinary: normal inspection, no CVA tenderness Musculoskeletal: other - contracted extremities Neurologic: other - dementia Psychiatric: other - dementia Reflexes: 3+ bicep (R), 3+ bicep (L), 3+ tricep (R), 3+ tricep (L), 3+ knee (R) , 3+ knee (L) Skin: other - see nursing notes Lymphatic: no adenopathy Medical Decision Making Diagnostic Impression: Primary Impression: Chronic diastolic CHF (congestive heart failure) Additional Impressions: Pneumonia Qualified Codes: J18.1 - Lobar pneumonia, unspecified organism Dehydration Respiratory distress UTI (urinary tract infection) Qualified Codes: N39.0 - Urinary tract infection, site not specified ER Course Hospital Course 88 yo F presents to ED with resp distress. hypoxia from SNF Differential diagnoses include: MA/unstable angina, contusion, muscle strain, PTX, rib fracture Clinical course Patient placed on stretcher. on rehab manager. After initial history and physical I ordered labs, EKG, chest x-ray, IVFs, ABG + BIPAP with nebs labs reviewed- noted leukocytosis, hemoglobin/hematocrit stable, Na and chloride elevated, BUN elevated, trop negative, UA + bacteria EKG - NSR, no acute ischemic changes interpreted by me Chest x-ray- R sided infiltrate. PICC line in place ABG shows some acidosis with hypercapnia. IV hydration continued. Broad-spectrum antibiotics ordered. BiPAP continued. Patient is DO NOT RESUSCITATE, selective treatment (DO NOT INTUBATE). Daughter at bedside states patient has BiPAP stating order at bedside Patient be admitted to Dr. Mclaughlin (per family's request) I. I feel this is a highly complex case requiring extensive working including EKG/Rhythm strip, Xray/CT/US, Blood/urine lab work, repeat exams while in ED, and administration of strong opiates/narcotics for pain control, admission to hospital or close patient follow up. Diagnosis - CHF, pneumonia, dehydation, respiratory distress, UTI admitted to SDU in serious condtion Labs Test 07/08/18 07:10 07/08/18 07:56 White Blood Count 15.0 K/UL (4.8-10.8) Red Blood Count 3.76 M/UL (4.20-5.40) Hemoglobin 10.4 G/DL (12.0-16.0) Hematocrit 36.1 % (37.0-47.0) Mean Corpuscular Volume 96 FL (80-99) Mean Corpuscular Hemoglobin 27.8 PG (27.0-31.0) Mean Corpuscular Hemoglobin Concent 28.9 G/DL (32.0-36.0) Red Cell Distribution Width 22.9 % (11.6-14.8) Platelet Count 114 K/UL (150-450) Mean Platelet Volume 15.2 FL (6.5-10.1) Neutrophils (%) (Auto) 63.9 % (45.0-75.0) Lymphocytes (%) (Auto) 19.5 % (20.0-45.0) Monocytes (%) (Auto) 4.9 % (1.0-10.0) Eosinophils (%) (Auto) 10.9 % (0.0-3.0) Basophils (%) (Auto) 0.8 % (0.0-2.0) Sodium Level 160 MMOL/L (136-145) Potassium Level 4.3 MMOL/L (3.5-5.1) Chloride Level 126 MMOL/L (98-107) Carbon Dioxide Level 30 MMOL/L (21-32) Anion Gap 4 mmol/L (5-15) Blood Urea Nitrogen 45 mg/dL (7-18) Creatinine 0.6 MG/DL (0.55-1.30) Estimat Glomerular Filtration Rate mL/min (>60) Glucose Level 132 MG/DL (74-106) Lactic Acid Level 1.20 mmol/L (0.4-2.0) Calcium Level 9.0 MG/DL (8.5-10.1) Total Bilirubin 0.2 MG/DL (0.2-1.0) Aspartate Amino Transf (AST/SGOT) 57 U/L (15-37) Alanine Aminotransferase (ALT/SGPT) 67 U/L (12-78) Alkaline Phosphatase 117 U/L (46-116) Total Creatine Kinase 43 U/L (26-308) Creatine Kinase MB 1.7 NG/ML (0.0-3.6) Creatine Kinase MB Relative Index 3.9 Troponin I 0.044 ng/mL (0.000-0.056) Pro-B-Type Natriuretic Peptide 2628 pg/mL (0-125) Total Protein 6.5 G/DL (6.4-8.2) Albumin 1.8 G/DL (3.4-5.0) Globulin 4.7 g/dL Albumin/Globulin Ratio 0.4 (1.0-2.7) EKG Diagnostic Results Rate: normal Rhythm: NSR ST Segments: no acute changes ASA given to the pt in ED: No Rhythm Strip Diag. Results EP Interpretation: yes Rhythm: NSR, no PVC's, no ectopy Chest X-Ray Diagnostic Results Chest X-Ray Diagnostic Results : Chest X-Ray Ordered: Yes # of Views/Limited/Complete: 1 View Indication: Shortness of Breath EP Interpretation: Yes Interpretation: no effusion, other - R sided infiltrate Impression: Other - pneumonia Electronically Signed by: Electronically signed by Fernando Su MD Last Vital Signs Date Time Temp Pulse Resp B/P (MAP) Pulse Ox O2 Delivery O2 Flow Rate FiO2 07/08/18 07:05 90 13 129/88 94 Non-Rebreather Status: improved Disposition: ADMITTED INPATIENT Condition: Serious Referrals: NON PHYSICIAN (PCP) Fernando Su MD Jul 08, 2018 08:17
[2018-07-08 08:28] LABS: COLOR,URINE YELLOW
--- NOTE | 2018-07-08 08:42 | NUR ---
ED Nurse Note: DAUGHTER AT THE BEDSIDE
--- NOTE | 2018-07-08 08:50 | NUR ---
ED Nurse Note: DAUGHTER AT THE BEDSIDE WAS GIVEN AN UPDATE REGARDING THE PROCESS OF ADMISSION
--- NOTE | 2018-07-08 09:40 | NUR ---
ED Nurse Note: attempted to give report but was told that receiving nurse was giving medication to the patient
--- NOTE | 2018-07-08 10:07 | NUR ---
ED Nurse Note: report given to ALIZE Pina. per Desirae, they are still preparing the bed and I can bring up the pt. in 10 minutes
--- NOTE | 2018-07-08 10:30 | NUR ---
NURSE NOTES: Received patient from ED. Via gurney. Placed on bipap. Family at bedside, Will admit to SDU standard level of care.
--- NOTE | 2018-07-08 12:00 | NUR ---
NURSE NOTES: Dr. Mclaughlin at bedside.
[2018-07-08] MEDS ORDERED: Docusate 100mg/10ml Liq GT PRN (12:15)
[2018-07-08] MEDS ORDERED: DiphenhydrAMINE 25mg/10ml Elixir GT PRN (12:15)
[2018-07-08] MEDS ORDERED: traMADol 50mg tab GT PRN (12:32)
[2018-07-08] MEDS ORDERED: Vitamin D 1000 IU Tab GT SCH (13:00)
[2018-07-08 13:28] LABS: INR 1.4 (0.9-1.1)
--- NOTE | 2018-07-08 13:30 | History and Physical Report ---
DATE OF ADMISSION: 07/08/2018 REASON FOR ADMISSION: 1. Respiratory failure. 2. Sacral osteomyelitis. HISTORY OF PRESENT ILLNESS: The patient is an 88-year-old female, well known to my service. I follow the patient on an outpatient regular basis at [facility]. The patient has had severe sacral osteomyelitis wound that had been undergoing careful care and debridement along with IV antibiotics. This has been healing well. At approximately 6 a.m. this morning, the patient started developing some respiratory insufficiency with low oxygen saturation, so was sent to the hospital for further evaluation and care, found to have an elevated pCO2. The patient was placed on BiPAP. Admitted to the hospital for further evaluation and care. Also noted to have a serum sodium of 160, which had improved from 166. ALLERGIES: 1. [place]. 2. Valsartan. PAST MEDICAL HISTORY: 1. DVT, PE. 2. Hypertension. 3. COPD. 4. GERD. 5. CVA. 6. TIA. 7. Dementia. 8. Hypothyroidism. FAMILY HISTORY: None. SOCIAL HISTORY: No tobacco, alcohol, or illicit drug use. CURRENT SURGICAL HISTORY: The patient was undergoing wound debridements in the sacral area. REVIEW OF SYSTEMS: Cannot obtain as the patient is nonverbal and is currently on BiPAP. LABORATORY DATA: Laboratories dated July 08, 2018, white cell count 15, hemoglobin 10.4, and platelet count 114. Sodium 160, creatinine 0.6, BUN 45. Troponin 0.044. Albumin 1.8. PHYSICAL EXAMINATION: VITAL SIGNS: Blood pressure 145/73, respiratory rate 24, pulse 75, temperature 97.5, and 100% oxygen saturation currently on BiPAP. GENERAL: The patient is somnolent, but can be aroused. HEENT: Extraocular muscles intact. No lymphadenopathy noted. CARDIOVASCULAR: S1, S2. No rubs or gallops. PULMONARY: Mild upper rhonchi with fair air movement in all [place]. ABDOMEN: Nondistended and nontender. EXTREMITIES: A 2+ edema bilaterally. ASSESSMENT AND PLAN: 1. Respiratory failure, hypercapnia an etiology with elevated pCO2 of 66. BiPAP has been placed and Pulmonary consulted for further evaluation and management. Most likely the patient has had slow silent aspirations due to dysphagia. At this time, we will continue BiPAP and follow Pulmonary instructions. 2. Osteomyelitis, sacral area. We will continue Zosyn q. 6 hours, has been on therapy to complete eight weeks total along with wound care consult to continue to treat the patient with every two hours rotation. 3. Hypothyroidism. We will continue Synthroid. 4. Hypoalbuminemia. Continue high-protein supplementation. 5. Edema secondary to low oncotic pressure from hypoalbuminemia. 6. Hypoalbuminemia difficult to correct due to underlying chronic osteo. 7. DVT and PE. Continue Coumadin. INR level has been ordered. Jeremiah Mclaughlin MD DR: MARS JOB#: [id number] CC:
--- NOTE | 2018-07-08 13:40 | NUR ---
RESPIRATORY NOTE:Started pt on bipap 15/5 fio2 30% per doctors orders due to abg results. pt is resting comfortably and no s/s of distress. RN notified of changes. Addendum: 07/08/18 at 1645 by SARKIS OSWALD RT RESPIRATORY NOTE:Charted on wrong pt.
[2018-07-08] MEDS: Zoysn 3.37gm in NS 100ML IVPB SCH ×2 (14:54→21:12)
[2018-07-08] MEDS: Vitamin D 1000 IU Tab GT SCH ×2 (14:55→21:12)
[2018-07-08] MEDS ORDERED: Albuterol/Ipratropium 3ml neb HHN PRN (15:00)
--- NOTE | 2018-07-08 15:07 | Consultation ---
Consult Note Assessment/Plan DICT # [id number] Kevyn Caraballo MD Jul 08, 2018 15:07
--- NOTE | 2018-07-08 16:13 | NUR ---
CASE MANAGEMENT: INITIAL REVIEW 88 YO F BIBA FROM SNF CC: sob PMHx: HTN. COPD. GERD. CVA. DEMENTIA. SI:RESP DISTRESS. HR 90 RR 13 B/P 129/88 SATS 94% ON RA WBC 15 NA 160 CL 126 BUN 45 GLU 132 AST 57 ALP 117 BNP 2628 ABGs pH 7.276 pCO2 66.6 pO2 130.8 HCO3 30.3 BE 2.2 IS: DUO NEB HHN X1 NS BOLUS X1 SOLU MEDROL IV X1 ZOSYN IV X1 AZITHROMYCIN IV X1 PATIENT ADMITTED TO SDU 07/08/2018 @ 0945 DCP: PATIENT TO BE DISCHARGED TO SNF ONCE MEDICALLY CLEARED. PLAN OF CARE: continue BiPAP Pulmonary consult
[2018-07-08] MEDS ORDERED: Warfarin Sodium 4mg PO SCH (17:00)
[2018-07-08] MEDS ORDERED: Warfarin Sodium 4mg GT SCH ×2 (17:00)
[2018-07-08] MEDS ORDERED: Piperacillin/Tazobactam 3.375 GM in NS 110 ML IVPB SCH (18:00)
[2018-07-08] MEDS: Acetylcysteine 20% Soln 4ml HHN SCH (18:46)
[2018-07-08] MEDS: Albuterol/Ipratropium 3ml neb HHN SCH (18:46)
--- NOTE | 2018-07-08 19:35 | NUR ---
HAND-OFF: Report given to Oumar Waters RN.
--- NOTE | 2018-07-08 20:00 | NUR ---
NURSE NOTES: Received patient from Desirae HERRMANN. Patient is newly admitted from ER. Patient is on a BIPAP with settings of 15/5 and 50% FiO2. Patient has fluids running D5W at 75ml/hr via MELISSA PICC line. Currently patient has been placed on NPo for Aspiration precautions. Patient HOB elevated 30 degrees. BP is 131/66, HR 66 SR, Temperature is 97.3F, SpO2 100%. Flacc score of 0/10. Patient also has L AC 20G and right wrist 24G. Multiple decubitus noted upon skin assessment. Patient is non-verbal but does open eyes occasionally.
--- NOTE | 2018-07-08 22:00 | NUR ---
NURSE NOTES: Patient was repositioned and given oral care. Patient remains stable at this time. NAD. 200ml H20 flush
--- NOTE | 2018-07-08 22:15 | Consultation ---
DATE OF CONSULTATION: 07/08/2018 PULMONARY AND CRITICAL CARE CONSULTATION CONSULTING PHYSICIAN: Kevyn Caraballo M.D. REFERRING PHYSICIAN: Jeremiah Mclaughlin M.D. REASON FOR CONSULTATION: Respiratory failure. HISTORY OF PRESENT ILLNESS: The patient is an 88-year-old female, [facility] resident with a history of dementia, dysphagia, status post G-tube, chronic respiratory failure on nocturnal noninvasive positive pressure ventilation, prior DVT, PE on anticoagulation, hypothyroidism, and questionable history of chronic obstructive pulmonary disease. The patient was in her usual state of health until yesterday when she started having severe shortness of breath and respiratory distress, was brought into the hospital with dehydration, hypernatremia, and hypercapnic respiratory failure. At baseline, she is nonverbal, bed-bound, gets tube feeds and is on the BiPAP at night only. No further history is obtainable from the patient. PAST MEDICAL HISTORY: 1. Chronic respiratory failure on nocturnal noninvasive positive pressure ventilation. 2. Dysphagia, status post G-tube. 3. Dementia, nonverbal at baseline and bed-bound. 4. DVT, PE, on anticoagulation. 5. Hypertension. 6. Hyperlipidemia. 7. Chronic obstructive pulmonary disease. 8. GERD. 9. Prior CVA/TIA. 10. Hypothyroidism. ALLERGIES: [place] and valsartan. MEDICATIONS: Prior to admission medications reviewed. Current medications reviewed. SOCIAL HISTORY: jail resident. No known tobacco, alcohol, or drug use. FAMILY HISTORY: Noncontributory. REVIEW OF SYSTEMS: Unobtainable. PHYSICAL EXAMINATION: VITAL SIGNS: Temperature 97.5, pulse 75, blood pressure 145/73, respiratory rate 24, and saturating 100% on BiPAP. GENERAL: She is an elderly nonverbal, demented female, in no distress, on BiPAP. HEENT: Normocephalic and atraumatic. Oropharynx is clear. Dry mucous membranes. She is on BiPAP. NECK: Supple without lymphadenopathy. No jugular venous distention. CHEST: Scattered coarse bilateral rhonchi. No wheezing. HEART: Regular rate and rhythm. ABDOMEN: Soft, nontender, and nondistended. G-tube is clean, dry, and intact. EXTREMITIES: No cyanosis, clubbing, or edema. There is a sacral wound that was not examined by me. ANCILLARY DATA: Laboratories, white count 15, hemoglobin 10.4, and platelet count 114. ABG, 7.23/64/207/26/98. INR 1.4. Sodium 160, potassium 4.3, chloride , bicarbonate 30, BUN 45, creatinine 0.6, glucose 132, lactic acid 1.2, calcium 9. Total bilirubin 0.2, AST 57, ALT 67, alkaline phosphatase 117. Total CK 43, CK-MB 1.7. Troponin 0.044. BNP 2628. Total protein 6.5. Albumin 1.8, globulin 4.7, TSH 0.98. Urinalysis, 10 to 15 whites, 3+ leukocyte esterase, 5+ blood, 1+ ketones. Cultures are pending. Imaging, chest x-ray reviewed by myself shows right upper lobe atelectasis versus infiltrate with volume loss. ASSESSMENT: The patient is an 88-year-old female, [facility] resident, nonverbal, demented, bedbound at baseline on noninvasive positive-pressure ventilation nocturnally for chronic respiratory failure, dysphagia, status post G-tube, now presenting with respiratory failure in the setting of right upper lobe infiltrate and collapse with evidence of acute on chronic hypercapnic respiratory failure, dehydration with hypernatremia. PROBLEM LIST: 1. Acute on chronic hypercapnic respiratory failure. 2. Right upper lobe infiltrate and collapse. 3. Advanced dementia, nonverbal, and bed-bound at baseline. 4. Dysphagia, status post G-tube. 5. STEPHY with hypernatremia. 6. Prior CVA/TIA. 7. Hypertension. 8. Hypothyroidism. 9. GERD. 10. Hyperlipidemia. TREATMENT PLAN: 1. Change BiPAP to 18/5 2. Repeat ABG in 2 hours. 3. Hold tube feeds until stable respiratory status. 4. Optimize pulmonary hygiene/mobilize as tolerated. 5. CPT. 6. Around the clock and p.r.n. DuoNebs. 7. Oiomjr-xdu-ubcgh Mucomyst. 8. Vancomycin and Zosyn for treatment of healthcare-associated pneumonia. 9. Monitor volumes and renal function, intravenous fluid hydration per Renal. 10. DVT prophylaxis. The patient is on anticoagulation. 11. The patient is DNAR. 12. Case discussed with daughter at bedside. Dr. Vila, thank you for allowing me to assist in the care of your patient. 60 minutes was spent in the care of this patient. Kevyn Caraballo M.D. DR: TIFFANIE JOB#: [id number] CC:
[2018-07-09] VITALS: BP 152/71
--- NOTE | 2018-07-09 | NUR ---
NURSE NOTES: Repositioned and given oral care. Vitals remains stable, NAD at this time.
[2018-07-09] MEDS: Acetylcysteine 20% Soln 4ml HHN SCH ×4 (00:18→19:35)
[2018-07-09] MEDS: Albuterol/Ipratropium 3ml neb HHN SCH ×4 (00:18→19:35)
[2018-07-09 04:00] VITALS: BP 137/59
--- NOTE | 2018-07-09 04:00 | NUR ---
NURSE NOTES: 200ml h20 flush, repositioned and oral care given. VSS
[2018-07-09] MEDS: Zoysn 3.37gm in NS 100ML IVPB SCH ×3 (05:29→21:20)
[2018-07-09] MEDS: Vitamin D 1000 IU Tab GT SCH ×3 (05:29→21:19)
--- NOTE | 2018-07-09 06:00 | NUR ---
NURSE NOTES: Patient repositioned shift and given oral care. Vitals have remained stable all night, no fevers. no new changes
[2018-07-09 06:07] LABS: HEMATOCRIT 27.6 % (37.0-47.0); HEMOGLOBIN 8.1 G/DL (12.0-16.0); MEAN CORPUSCULAR VOLUME 95 FL (80-99); RED BLOOD COUNT 2.89 M/UL (4.20-5.40); RED CELL DISTRIBUTION WIDTH 21.8 % (11.6-14.8); WHITE BLOOD COUNT 11.4 K/UL (4.8-10.8)
[2018-07-09 06:08] LABS: INR 1.9 (0.9-1.1)
[2018-07-09 06:14] LABS: PLATELET COUNT 85 K/UL (150-450)
[2018-07-09 07:11] LABS: ANION GAP 6 mmol/L (5-15); BLOOD UREA NITROGEN 35 mg/dL (7-18); CALCIUM 8.6 MG/DL (8.5-10.1); CARBON DIOXIDE 29 MMOL/L (21-32); CHLORIDE 122 MMOL/L (98-107); CREATININE 0.5 MG/DL (0.55-1.30); POTASSIUM 3.5 MMOL/L (3.5-5.1); SODIUM 157 MMOL/L (136-145)
--- NOTE | 2018-07-09 07:29 | NUR ---
NURSE NOTES: received patient report from edelmira rn. patient is on bed asleep. not in acute distress. on IV fluid running at prescribed rate. will follow plan of care.
[2018-07-09 08:00] VITALS: BP 138/61
[2018-07-09] MEDS: Levodopa/Carbidopa 25/250 tab GT SCH ×2 (08:05→12:37)
--- NOTE | 2018-07-09 08:36 | Nephrology Progress Note ---
Assessment/Plan Assessment/Plan: A/P 1) CAP/Hypercap Resp Failure - BiPAP 24/06 - Vanc + Zosyn - appreciate pulmonary assistance 2) Sacral Osteo- continue Zosyn 3) DVT- on coumadin, pharm dosing 4) Hypothyroid- synthroid 5) Edema- low albumin - TFs to restart once cleared by Pulm Subjective Date patient seen: Jul 09, 2018 Time patient seen: 08:34 ROS Limited/Unobtainable: Yes Allergies: Coded Allergies: STRAWBERRY (Verified Allergy, Unknown, Rash, 06/29/13) COPIED FROM UNCODED SECTION VALSARTAN (Verified Allergy, Unknown, 03/09/11) Subjective Patient nonverbal. BiPAP mask on Objective Last 24 Hour Vital Signs Date Time Temp Pulse Resp B/P (MAP) Pulse Ox O2 Delivery O2 Flow Rate FiO2 07/09/18 07:40 54 22 100 Bi-pap 25 07/09/18 07:31 100 07/09/18 07:31 54 22 100 Bi-pap 25 07/09/18 07:29 54 22 100 Facial 25 07/09/18 05:02 53 21 100 Facial 30 07/09/18 04:00 97.6 60 20 137/59 (85) 100 07/09/18 04:00 63 07/09/18 04:00 30 07/09/18 03:05 60 22 100 Facial 30 07/09/18 00:32 53 22 100 Facial 30 07/09/18 00:18 53 23 100 Bi-pap 100 07/09/18 00:18 100 07/09/18 00:00 58 07/09/18 00:00 97.5 55 20 152/71 (98) 100 07/09/18 00:00 30 07/08/18 23:13 62 22 100 Facial 30 07/08/18 20:57 64 23 98 Facial 30 07/08/18 20:00 68 07/08/18 20:00 97.3 66 20 131/66 (87) 100 07/08/18 20:00 30 07/08/18 19:01 61 20 100 Bi-pap 30 07/08/18 18:51 65 14 100 Facial 30 07/08/18 18:46 60 18 100 Bi-pap 100 07/08/18 18:46 100 07/08/18 17:30 30 07/08/18 17:25 65 14 100 Facial 15.0 35 07/08/18 16:00 97.5 67 24 136/70 (92) 100 07/08/18 15:40 85 16 100 Facial 15.0 40 07/08/18 15:33 67 07/08/18 15:15 50 07/08/18 12:50 50 07/08/18 12:37 Bi-pap 15.0 07/08/18 12:30 50 07/08/18 12:30 79 15 100 Facial 15.0 50 07/08/18 12:00 97.3 72 30 103/56 (72) 100 07/08/18 11:25 75 07/08/18 10:45 97.5 75 24 145/73 (97) 100 07/08/18 10:40 60 07/08/18 10:39 74 07/08/18 10:30 85 16 100 Facial 15.0 60 07/08/18 10:23 97.6 70 14 123/61 100 Mechanical Ventilator 80 07/08/18 10:15 97.6 70 14 123/61 100 Mechanical Ventilator 80 07/08/18 08:50 15.0 80 07/08/18 08:39 98.6 78 22 139/63 100 Mechanical Ventilator 80 07/08/18 08:36 82 18 100 Bi-pap 15.0 80 Intake and Output 07/08/18 07/09/18 18:59 06:59 Intake Total 335.0 ml 1365.0 ml Output Total 30 ml 300 ml Balance 305.0 ml 1065.0 ml Intake Oral 0 ml Free Water 200 ml IV Total 335.0 ml 1165.0 ml Output Urine Total 30 ml 300 ml # Bowel Movements 1 Laboratory Tests 07/08/18 12:09: Arterial Blood pH 7.230*L, Arterial Blood Partial Pressure CO2 64.3*H, Arterial Blood Partial Pressure O2 207.5H, Arterial Blood HCO3 26.3H, Arterial Blood Oxygen Saturation 98.8, Arterial Blood Base Excess -2.0, Cruzito Test Positive 07/08/18 13:05: Prothrombin Time 14.6H, Prothromb Time International Ratio 1.4H 07/08/18 17:15: Sodium Level 161*H 07/09/18 05:00: Prothrombin Time 19.3H, Prothromb Time International Ratio 1.9H, Sodium Level 157H, White Blood Count 11.4H, Red Blood Count 2.89L, Hemoglobin 8.1L, Hematocrit 27.6L, Mean Corpuscular Volume 95, Mean Corpuscular Hemoglobin 27.9, Mean Corpuscular Hemoglobin Concent 29.3L, Red Cell Distribution Width 21.8H, Platelet Count 85L, Mean Platelet Volume 12.8H, Neutrophils (%) (Auto) , Lymphocytes (%) (Auto) , Monocytes (%) (Auto) , Eosinophils (%) (Auto) , Basophils (%) (Auto) , Differential Total Cells Counted 100, Neutrophils % ( Manual) 89H, Lymphocytes % (Manual) 5L, Monocytes % (Manual) 6, Eosinophils % ( Manual) 0, Basophils % (Manual) 0, Band Neutrophils 0, Platelet Estimate DecreasedL, Platelet Morphology Normal, Polychromasia 1+, Hypochromasia 1+, Anisocytosis 2+, Potassium Level 3.5, Chloride Level 122H, Carbon Dioxide Level 29, Anion Gap 6, Blood Urea Nitrogen 35H, Creatinine 0.5L, Estimat Glomerular Filtration Rate , Glucose Level 130H, Calcium Level 8.6 Height (Feet): 5 Height (Inches): 6.00 Weight (Pounds): 108 General Appearance: no apparent distress EENT: normal ENT inspection Neck: normal alignment, supple Cardiovascular: normal rate, regular rhythm Respiratory/Chest: crackles/rales, expiratory wheezing Abdomen: non tender, soft Edema: no edema noted Arm (L), no edema noted Arm (R), no edema noted Leg (L), no edema noted Leg (R), no edema noted Pedal (L), no edema noted Pedal (R), no edema noted Generalized Jeremiah Mclaughlin MD Jul 09, 2018 08:36
--- NOTE | 2018-07-09 09:41 | NUR ---
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 * Increased kcal/prot needs R/T wound healing, as evidenced by multiple wounds per photo, including unstageable sacral wound. ENTERAL NUTRITION RECOMMENDATIONS: Glucerna 1.5 @50ml/hr x22 hrs to provide 1100ml, 1650kcal, 91g prot, 835ml free water * As medically able, start Glucerna 1.5 @20ml/hr for 6 hrs. Advance as tolerated 10ml/hr q4-6 hrs to goal * Hold 1 hr before and after Synthroid med. * HOB over 30 degrees/ water flush per MD. ----- ALTERNATIVELY IF PT IS ON BIPAP FOR EXTENDED TIME, REC LIMITED 12 HR TF RUN TIME -> Glucerna 1.5 @82ml/hr x12 hrs to provide 984ml, 1476 kcal, 81g pro, 747ml free H2O. -> 82ml/hr= est 5.5 tablespoons of tube feed per hour -> TF at goal meets 100% est kcal and pro needs. 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 . .
--- NOTE | 2018-07-09 09:59 | NUR ---
NURSE NOTES: dr bo made aware that patient is positive for gram + cocci in cluters X1 bottle. dr pedraza acknowedled the report and stated that patient is on vanco and zosyn. will continue to monitor.
[2018-07-09] MEDS ORDERED: Sterile Water Irrig 1000ml IRRIG ONE (10:02)
[2018-07-09] MEDS ORDERED: D5W 275ml ONE (10:02)
--- NOTE | 2018-07-09 11:08 | NUR ---
PT Note PT leonela completed. Patient is at baseline level of function; she is unable to actively participate with any physical therapy. No f/u PT treatments recommended at this time. Addendum: 07/09/18 at 1111 by NAGI DIXON PT Amended: Links added.
[2018-07-09 12:00] VITALS: BP 148/75
--- NOTE | 2018-07-09 13:02 | Pulmonology Progress Note ---
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 PROBLEM LIST: 1. Acute on chronic hypercapnic respiratory failure. 2. Right upper lobe infiltrate and collapse. 3. Advanced dementia, nonverbal, and bed-bound at baseline. 4. Dysphagia, status post G-tube. 5. STEPHY with hypernatremia. 6. Prior CVA/TIA. 7. Hypertension. 8. Hypothyroidism. 9. GERD. 10. Hyperlipidemia. TREATMENT PLAN: 1. BiPAP 18/5 PRN and qHS 2. Repeat ABG and CXR 3. Resume TF's once respiratory status stable 4. Optimize pulmonary hygiene/mobilize as tolerated. 5. CPT. 6. Around the clock and p.r.n. DuoNebs. 7. [id number] Mucomyst. 8. Vancomycin and Zosyn for treatment of healthcare-associated pneumonia and sacral OM 9. Monitor volumes and renal function, intravenous fluid hydration per Renal. 10. DVT prophylaxis. The patient is on anticoagulation. 11. The patient is DNAR. 12. Case discussed with daughter at bedside. Subjective Allergies: Coded Allergies: STRAWBERRY (Verified Allergy, Unknown, Rash, 06/29/13) COPIED FROM UNCODED SECTION VALSARTAN (Verified Allergy, Unknown, 03/09/11) Subjective AFVSS remains on BiPAP Na better no change in MS no cough no wheezing no distress Objective Last 24 Hour Vital Signs Date Time Temp Pulse Resp B/P (MAP) Pulse Ox O2 Delivery O2 Flow Rate FiO2 07/09/18 12:00 Bi-pap 07/09/18 12:00 30 07/09/18 11:00 58 21 100 Facial 30 07/09/18 09:29 59 19 99 Facial 25 07/09/18 09:00 Bi-pap 07/09/18 08:00 54 07/09/18 08:00 97.7 57 20 138/61 (86) 100 07/09/18 08:00 30 07/09/18 07:40 54 22 100 Bi-pap 25 07/09/18 07:31 100 07/09/18 07:31 54 22 100 Bi-pap 25 07/09/18 07:29 54 22 100 Facial 25 07/09/18 05:02 53 21 100 Facial 30 07/09/18 04:00 97.6 60 20 137/59 (85) 100 07/09/18 04:00 63 07/09/18 04:00 30 07/09/18 03:05 60 22 100 Facial 30 07/09/18 00:32 53 22 100 Facial 30 07/09/18 00:18 53 23 100 Bi-pap 100 07/09/18 00:18 100 07/09/18 00:00 58 07/09/18 00:00 97.5 55 20 152/71 (98) 100 07/09/18 00:00 30 07/08/18 23:13 62 22 100 Facial 30 07/08/18 20:57 64 23 98 Facial 30 07/08/18 20:00 68 07/08/18 20:00 97.3 66 20 131/66 (87) 100 07/08/18 20:00 30 07/08/18 19:01 61 20 100 Bi-pap 30 07/08/18 18:51 65 14 100 Facial 30 07/08/18 18:46 60 18 100 Bi-pap 100 07/08/18 18:46 100 07/08/18 17:30 30 07/08/18 17:25 65 14 100 Facial 15.0 35 07/08/18 16:00 97.5 67 24 136/70 (92) 100 07/08/18 15:40 85 16 100 Facial 15.0 40 07/08/18 15:33 67 07/08/18 15:15 50 Intake and Output 07/08/18 07/09/18 18:59 06:59 Intake Total 335.0 ml 1365.0 ml Output Total 30 ml 300 ml Balance 305.0 ml 1065.0 ml Intake Oral 0 ml Free Water 200 ml IV Total 335.0 ml 1165.0 ml Output Urine Total 30 ml 300 ml # Bowel Movements 1 General Appearance: no acute distress, cachetic, other - on BiPAP HEENT: normocephalic, atraumatic, anicteric, mucous membranes moist Respiratory/Chest: rhonchi Cardiovascular: normal peripheral pulses, normal rate, regular rhythm Abdomen: normal bowel sounds, soft, non tender, no organomegaly, non distended , no mass Extremities: no cyanosis, no clubbing, no edema Microbiology Date/Time Source Procedure Growth Status 07/08/18 07:25 Blood Blood Culture - Preliminary Resulted 07/08/18 07:56 Urine,Clean Catch Urine Culture - Preliminary Resulted 07/08/18 07:15 Rectum Received Laboratory Tests 07/08/18 13:05: Prothrombin Time 14.6H, Prothromb Time International Ratio 1.4H 07/08/18 17:15: Sodium Level 161*H 07/09/18 05:00: Prothrombin Time 19.3H, Prothromb Time International Ratio 1.9H, Sodium Level 157H, White Blood Count 11.4H, Red Blood Count 2.89L, Hemoglobin 8.1L, Hematocrit 27.6L, Mean Corpuscular Volume 95, Mean Corpuscular Hemoglobin 27.9, Mean Corpuscular Hemoglobin Concent 29.3L, Red Cell Distribution Width 21.8H, Platelet Count 85L, Mean Platelet Volume 12.8H, Neutrophils (%) (Auto) , Lymphocytes (%) (Auto) , Monocytes (%) (Auto) , Eosinophils (%) (Auto) , Basophils (%) (Auto) , Differential Total Cells Counted 100, Neutrophils % ( Manual) 89H, Lymphocytes % (Manual) 5L, Monocytes % (Manual) 6, Eosinophils % ( Manual) 0, Basophils % (Manual) 0, Band Neutrophils 0, Platelet Estimate DecreasedL, Platelet Morphology Normal, Polychromasia 1+, Hypochromasia 1+, Anisocytosis 2+, Potassium Level 3.5, Chloride Level 122H, Carbon Dioxide Level 29, Anion Gap 6, Blood Urea Nitrogen 35H, Creatinine 0.5L, Estimat Glomerular Filtration Rate , Glucose Level 130H, Calcium Level 8.6 Current Medications Medications (Trade) Dose Ordered Sig/Marcel Route PRN Reason Start Time Stop Time Status Last Admin Dose Admin Acetylcysteine (Mucomyst) 200 mg Q6HRT HHN 07/08/18 19:00 08/07/18 18:59 07/09/18 07:30 Albuterol/ Ipratropium (Albuterol/ Ipratropium) 3 ml Q4H PRN HHN Shortness of Breath 07/08/18 15:00 07/13/18 14:59 Albuterol/ Ipratropium (Albuterol/ Ipratropium) 3 ml Q6HRT HHN 07/08/18 19:00 07/13/18 18:59 07/09/18 07:30 Carbidopa/Levodopa (Sinemet 25/250) 1 tab BID@0730,1230 GT 07/09/18 07:30 08/08/18 07:29 07/09/18 12:37 Dextrose 1,000 ml @ 75 mls/hr [id number] IV 07/08/18 18:30 08/07/18 18:29 07/09/18 06:23 Dextrose (Dextrose 50%) 25 ml Q30M PRN IV Hypoglycemia 07/08/18 12:15 08/07/18 12:14 Dextrose (Dextrose 50%) 50 ml Q30M PRN IV Hypoglycemia 07/08/18 12:15 08/07/18 12:14 Diphenhydramine HCl (Benadryl) 25 mg Q6H PRN GT Itching 07/08/18 12:15 08/07/18 12:14 Docusate Sodium (Colace) 100 mg TIDPRN PRN GT Constipation 07/08/18 12:15 08/07/18 12:14 EZETIMIBE (Zetia) 10 mg BEDTIME GT 07/08/18 21:00 08/07/18 20:59 07/08/18 21:12 Famotidine (Pepcid) 20 mg DAILY GT 07/09/18 09:00 08/08/18 08:59 07/09/18 08:07 Levothyroxine Sodium (Synthroid) 112 mcg DAILY@0630 GT 07/09/18 06:30 08/08/18 06:29 07/09/18 06:06 Piperacillin Sod/ Tazobactam Sod 3.375 gm/Sodium Chloride 110 ml @ 27.5 mls/hr EVERY 8 HOURS IVPB 07/08/18 14:00 07/13/18 13:59 07/09/18 05:29 Ropinirole HCl (Requip) 1 mg BID@0730,1230 GT 07/09/18 07:30 08/08/18 07:29 07/09/18 12:37 Tramadol HCl (Ultram) 25 mg Q6H PRN GT For Pain 07/08/18 12:32 07/15/18 12:31 Vancomycin HCl (Vanco rx to dose) 1 ea DAILY PRN MISC . 07/09/18 12:45 08/08/18 12:44 Vancomycin HCl 500 mg/Dextrose 110 ml @ 110 mls/hr Q24H IVPB 07/09/18 14:00 07/14/18 13:59 Vitamin D (Vitamin D) 1,000 intlu EVERY 8 HOURS GT 07/08/18 14:00 08/07/18 12:59 07/09/18 05:29 Warfarin Sodium (Coumadin per pharmacy) 1 ea DAILY PRN MISC Per RX Protocol 07/09/18 09:00 08/08/18 08:59 Warfarin Sodium (Coumadin) 2 mg ONCE ORAL 07/09/18 17:00 07/09/18 19:00 Kevyn Caraballo MD Jul 09, 2018 13:02
[2018-07-09] MEDS: Vancomycin 500mg/D5W 110ml IVPB SCH ×2 (14:10)
--- NOTE | 2018-07-09 15:40 | NUR ---
RESPIRATORY NOTE: Pt taken off Bipap and placed on Venti mask 28% @ 3L per MD orders and ABG results. No respiratory distress noted. Spo2 99, HR 69, RR 20. Will monitor closely.
[2018-07-09 16:00] VITALS: BP 131/56
[2018-07-09] MEDS ORDERED: Warfarin Sodium 1mg ORAL SCH (17:00)
--- NOTE | 2018-07-09 19:06 | NUR ---
HAND-OFF: Report given to sudarshan lucia.
--- NOTE | 2018-07-09 19:08 | NUR ---
NURSE NOTES: Received bedside report from ALIZE Beck.Patient stable,nonverbal,SR on color television console monitor,tolerated simple mask@ 4L/min FiO2 25%,GT running with Glucerna 1.5@ 20 ml/hr,goal is 50 ml/hr,f/cath draining toward gravity,BS active in all quadrants,PICC line single lumen asymptomatic,intact TKO,R wrist 24G,L AC 20G running with D 5 W@ 75ml/hr,bed secured on a low safety position,call light within a reach,will continue to monitor.
[2018-07-09 20:00] VITALS: BP 150/74
[2018-07-10] VITALS: BP 139/72
[2018-07-10] MEDS: Albuterol/Ipratropium 3ml neb HHN SCH ×4 (01:04→19:12)
[2018-07-10] MEDS: Acetylcysteine 20% Soln 4ml HHN SCH ×4 (01:04→19:12)
[2018-07-10 03:59] VITALS: BP 129/75
[2018-07-10] MEDS: Levodopa/Carbidopa 25/250 tab GT SCH ×2 (06:09→12:33)
[2018-07-10] MEDS: Zoysn 3.37gm in NS 100ML IVPB SCH ×3 (06:09→21:24)
[2018-07-10] MEDS: Vitamin D 1000 IU Tab GT SCH ×3 (06:09→21:23)
[2018-07-10 06:32] LABS: INR 2.5 (0.9-1.1)
--- NOTE | 2018-07-10 07:03 | NUR ---
HAND-OFF: Report given to ALIZE Hilton.Patient stable.
--- NOTE | 2018-07-10 07:20 | NUR ---
NURSE NOTES: Received report from ALIZE Larios. Patient is resting in bed, in stable condition. No s/sx of SOB, breathing is even and unlabored. Observed no presence of pain or discomfort at this time. Bed is in lowest position, brakes engaged. Call light is kept within easy reach. Will continue to monitor patient.
[2018-07-10 08:00] VITALS: BP 103/62
[2018-07-10 08:18] LABS: HEMATOCRIT 30.1 % (37.0-47.0); HEMOGLOBIN 9.1 G/DL (12.0-16.0); MEAN CORPUSCULAR VOLUME 93 FL (80-99); PLATELET COUNT 92 K/UL (150-450); RED BLOOD COUNT 3.23 M/UL (4.20-5.40); RED CELL DISTRIBUTION WIDTH 22.2 % (11.6-14.8)
[2018-07-10 08:19] LABS: ANION GAP 9 mmol/L (5-15); BLOOD UREA NITROGEN 24 mg/dL (7-18); CALCIUM 8.6 MG/DL (8.5-10.1); CARBON DIOXIDE 26 MMOL/L (21-32); CHLORIDE 115 MMOL/L (98-107); CREATININE 0.5 MG/DL (0.55-1.30); SODIUM 149 MMOL/L (136-145)
--- NOTE | 2018-07-10 08:20 | Nephrology Progress Note ---
Assessment/Plan Assessment/Plan: A/P 1) CAP/Hypercap Resp Failure -right upper lobe infiltrate and collapse with evidence of acute on chronic hypercapnic respiratory failure - off BiPAP - appreciate pulm assistance 2) Sacral Osteo- continue Zosyn 3) DVT- on coumadin, pharm dosing 4) Hypothyroid- synthroid 5) Edema- low albumin - TFs to restart once cleared by Pulm 6) Sepsis- Yeast in urine/VRE rectum/1 bttle coag neg staph ( ?contaminate?) - will consult ID for reccs for jail abx Subjective Date patient seen: Jul 10, 2018 Time patient seen: 08:17 ROS Limited/Unobtainable: Yes Allergies: Coded Allergies: STRAWBERRY (Verified Allergy, Unknown, Rash, 06/29/13) COPIED FROM UNCODED SECTION VALSARTAN (Verified Allergy, Unknown, 03/09/11) Subjective Patient nonverbal, off BiPAP on ventimask. Objective Last 24 Hour Vital Signs Date Time Temp Pulse Resp B/P (MAP) Pulse Ox O2 Delivery O2 Flow Rate FiO2 07/10/18 07:43 75 20 99 Venturi Mask 3.0 28 07/10/18 07:35 28 07/10/18 07:33 79 20 95 Venturi Mask 3.0 28 07/10/18 05:14 81 19 98 Facial 25 07/10/18 04:00 30 07/10/18 04:00 Bi-pap 07/10/18 03:59 97.6 80 20 129/75 (93) 99 07/10/18 03:45 81 07/10/18 03:29 80 14 99 Facial 25 07/10/18 01:20 82 18 100 Bi-pap 25 07/10/18 01:04 76 20 98 Bi-pap 25 07/10/18 01:04 100 07/10/18 00:51 75 17 98 Facial 25 07/10/18 00:00 Simple Mask 4.0 07/10/18 00:00 68 07/10/18 00:00 98.8 65 20 139/72 (94) 98 07/09/18 23:01 Venturi Mask 3.0 28 07/09/18 20:00 Simple Mask 4.0 07/09/18 20:00 4.0 25 07/09/18 20:00 97.6 70 20 150/74 (99) 100 07/09/18 19:50 65 18 100 Venturi Mask 31 07/09/18 19:35 69 18 100 Venturi Mask 3.0 28 07/09/18 19:35 100 07/09/18 19:34 68 07/09/18 16:00 Simple Mask 4.0 07/09/18 16:00 4.0 25 07/09/18 16:00 96.8 62 14 131/56 (81) 99 07/09/18 16:00 61 07/09/18 13:10 68 16 98 Bi-pap 25 07/09/18 13:09 68 16 98 Bi-pap 25 07/09/18 13:09 100 07/09/18 13:08 68 20 98 Facial 30 07/09/18 12:00 53 07/09/18 12:00 97.0 57 16 148/75 (99) 100 07/09/18 12:00 Bi-pap 07/09/18 12:00 30 07/09/18 11:00 58 21 100 Facial 30 07/09/18 09:29 59 19 99 Facial 25 07/09/18 09:00 Bi-pap Intake and Output 07/09/18 07/10/18 19:00 07:00 Intake Total 1432.5 ml 1696.0 ml Output Total 780 ml 800 ml Balance 652.5 ml 896.0 ml Free Water 300 ml 430 ml IV Total 1092.5 ml 1006.0 ml Tube Feeding 40 ml 260 ml Output Urine Total 780 ml 800 ml # Bowel Movements 3 3 Laboratory Tests 07/09/18 12:59: Arterial Blood pH 7.383, Arterial Blood Partial Pressure CO2 46.6H, Arterial Blood Partial Pressure O2 94.5, Arterial Blood HCO3 27.1H, Arterial Blood Oxygen Saturation 96.6, Arterial Blood Base Excess 1.7, Cruzito Test Positive 07/10/18 05:10: White Blood Count [Pending], Red Blood Count [Pending], Hemoglobin [Pending], Hematocrit [Pending], Mean Corpuscular Volume [Pending], Mean Corpuscular Hemoglobin [Pending], Mean Corpuscular Hemoglobin Concent [Pending], Red Cell Distribution Width [Pending], Platelet Count [Pending], Mean Platelet Volume [ Pending], Neutrophils (%) (Auto) [Pending], Lymphocytes (%) (Auto) [Pending], Monocytes (%) (Auto) [Pending], Eosinophils (%) (Auto) [Pending], Basophils (%) (Auto) [Pending], Prothrombin Time 25.4H, Prothromb Time International Ratio 2.5H, Sodium Level [Pending], Potassium Level [Pending], Chloride Level [Pending ], Carbon Dioxide Level [Pending], Blood Urea Nitrogen [Pending], Creatinine [ Pending], Estimat Glomerular Filtration Rate [Pending], Glucose Level [Pending] , Calcium Level [Pending] Height (Feet): 5 Height (Inches): 6.00 Weight (Pounds): 108 General Appearance: no apparent distress EENT: normal ENT inspection Neck: normal alignment, supple Cardiovascular: normal rate, regular rhythm Respiratory/Chest: crackles/rales, rhonchi - bilaterally Abdomen: non tender, soft Edema: 2+ Arm (L), 2+ Arm (R), 2+ Leg (L), 2+ Leg (R), 2+ Pedal (L), 2+ Pedal ( R), 2+ Generalized Jeremiah Mclaughlin MD Jul 10, 2018 08:20
--- NOTE | 2018-07-10 11:58 | Diagnostic Imaging Report ---
Indication: Dyspnea Comparison: 07/08/2018 A single view chest radiograph was obtained. Findings: Interstitial edema suspected with prominent vascularity and heart size. A small effusion on the left not excluded. Part of the upper lobe is obscured. IMPRESSION: Suggestion of mild interstitial edema/CHF. Correlate clinically
[2018-07-10 12:00] VITALS: BP 140/60
--- NOTE | 2018-07-10 12:34 | Pulmonology Progress Note ---
Assessment/Plan Assessment/Plan ASSESSMENT: The patient is an 88-year-old female, shelter resident, nonverbal, demented, bedbound at baseline on noninvasive positive-pressure ventilation nocturnally for chronic respiratory failure, dysphagia, status post G-tube, now presenting with respiratory failure in the setting of right upper lobe infiltrate and collapse with evidence of acute on chronic hypercapnic respiratory failure, dehydration with hypernatremia. PROBLEM LIST: 1. Acute on chronic hypercapnic respiratory failure - IMPROVED 2. Right upper lobe infiltrate and collapse - IMPROVED 3. Advanced dementia, nonverbal, and bed-bound at baseline. 4. Dysphagia, status post G-tube. 5. STEPHY with hypernatremia - RESOLVED 6. Prior CVA/TIA. 7. Hypertension. 8. Hypothyroidism. 9. GERD. 10. Hyperlipidemia. 11. CoNS BSI, likely contaminant 12. Sacral OM TREATMENT PLAN: 1. BiPAP 18/5 PRN and qHS 2. Monitor gas exchange 3. Resume TF's once respiratory status stable 4. Optimize pulmonary hygiene/mobilize as tolerated. 5. CPT. 6. Around the clock and p.r.n. DuoNebs. 7. Rqfaou-pcs-rbsua Mucomyst. 8. Vancomycin and Zosyn for treatment of healthcare-associated pneumonia and sacral OM - ID eval pending 9. Monitor volumes and renal function, cautious intravenous fluid hydration per Renal. 10. DVT prophylaxis. The patient is on anticoagulation. 11. The patient is DNAR. 12. Case discussed with daughter at bedside. Subjective Allergies: Coded Allergies: STRAWBERRY (Verified Allergy, Unknown, Rash, 06/29/13) COPIED FROM UNCODED SECTION VALSARTAN (Verified Allergy, Unknown, 03/09/11) Subjective AFVSS gas exchange better on BiPAP qHS and on 3L NC now Na 149 TF's resumed, no distress Less cough no obvious SOB no FC Objective Last 24 Hour Vital Signs Date Time Temp Pulse Resp B/P (MAP) Pulse Ox O2 Delivery O2 Flow Rate FiO2 07/10/18 08:00 4.0 25 07/10/18 08:00 Bi-pap 07/10/18 08:00 98.2 76 20 103/62 (76) 95 07/10/18 07:43 75 20 99 Venturi Mask 3.0 28 07/10/18 07:35 28 07/10/18 07:33 79 20 95 Venturi Mask 3.0 28 07/10/18 05:14 81 19 98 Facial 25 07/10/18 04:00 30 07/10/18 04:00 Bi-pap 07/10/18 03:59 97.6 80 20 129/75 (93) 99 07/10/18 03:45 81 07/10/18 03:29 80 14 99 Facial 25 07/10/18 01:20 82 18 100 Bi-pap 25 07/10/18 01:04 76 20 98 Bi-pap 25 07/10/18 01:04 100 07/10/18 00:51 75 17 98 Facial 25 07/10/18 00:00 Simple Mask 4.0 07/10/18 00:00 68 07/10/18 00:00 98.8 65 20 139/72 (94) 98 07/09/18 23:01 Venturi Mask 3.0 28 07/09/18 20:00 Simple Mask 4.0 07/09/18 20:00 4.0 25 07/09/18 20:00 97.6 70 20 150/74 (99) 100 07/09/18 19:50 65 18 100 Venturi Mask 31 07/09/18 19:35 69 18 100 Venturi Mask 3.0 28 07/09/18 19:35 100 07/09/18 19:34 68 07/09/18 16:00 Simple Mask 4.0 07/09/18 16:00 4.0 25 07/09/18 16:00 96.8 62 14 131/56 (81) 99 07/09/18 16:00 61 07/09/18 13:10 68 16 98 Bi-pap 25 07/09/18 13:09 68 16 98 Bi-pap 25 07/09/18 13:09 100 07/09/18 13:08 68 20 98 Facial 30 Intake and Output 07/09/18 07/10/18 18:59 06:59 Intake Total 1432.5 ml 1607.5 ml Output Total 780 ml 800 ml Balance 652.5 ml 807.5 ml Free Water 300 ml 430 ml IV Total 1092.5 ml 917.5 ml Tube Feeding 40 ml 260 ml Output Urine Total 780 ml 800 ml # Bowel Movements 3 3 General Appearance: no acute distress, cachetic, other - demented non-verbal HEENT: normocephalic, atraumatic, anicteric, mucous membranes moist Respiratory/Chest: chest wall non-tender, rhonchi Cardiovascular: normal peripheral pulses, normal rate, regular rhythm Abdomen: normal bowel sounds, soft, non tender, no organomegaly, non distended , no mass, other - GT CDI Extremities: no cyanosis, no clubbing, other - trace edema Microbiology Date/Time Source Procedure Growth Status 07/08/18 07:25 Blood Blood Culture - Preliminary Staphylococcus Sp Coag Neg Resulted 07/08/18 07:10 Blood Blood Culture - Preliminary NO GROWTH AFTER 24 HOURS Resulted 07/08/18 07:15 Nasal Nares MRSA Culture - Final NO METHICILLIN RESISTANT STAPH AUREUS... Complete 07/08/18 07:56 Urine,Clean Catch Urine Culture - Preliminary YEAST Resulted 07/08/18 07:15 Rectum VRE Culture - Final Enterococcus Faecium - Vre Complete 07/08/18 07:15 Rectum Received Laboratory Tests 07/09/18 12:59: Arterial Blood pH 7.383, Arterial Blood Partial Pressure CO2 46.6H, Arterial Blood Partial Pressure O2 94.5, Arterial Blood HCO3 27.1H, Arterial Blood Oxygen Saturation 96.6, Arterial Blood Base Excess 1.7, Cruzito Test Positive 07/10/18 05:10: White Blood Count 12.0H, Red Blood Count 3.23L, Hemoglobin 9.1L, Hematocrit 30.1L, Mean Corpuscular Volume 93, Mean Corpuscular Hemoglobin 28.1, Mean Corpuscular Hemoglobin Concent 30.2L, Red Cell Distribution Width 22.2H, Platelet Count 92L, Mean Platelet Volume 14.2H, Neutrophils (%) (Auto) , Lymphocytes (%) (Auto) , Monocytes (%) (Auto) , Eosinophils (%) (Auto) , Basophils (%) (Auto) , Differential Total Cells Counted 100, Neutrophils % ( Manual) 87H, Lymphocytes % (Manual) 7L, Monocytes % (Manual) 3, Eosinophils % ( Manual) 3, Basophils % (Manual) 0, Band Neutrophils 0, Platelet Estimate DecreasedL, Platelet Morphology Normal, Hypochromasia 2+, Anisocytosis 3+, Prothrombin Time 25.4H, Prothromb Time International Ratio 2.5H, Sodium Level 149H, Potassium Level 4.0, Chloride Level 115H, Carbon Dioxide Level 26, Anion Gap 9, Blood Urea Nitrogen 24H, Creatinine 0.5L, Estimat Glomerular Filtration Rate , Glucose Level 123H, Calcium Level 8.6 Current Medications Medications (Trade) Dose Ordered Sig/Marcel Route PRN Reason Start Time Stop Time Status Last Admin Dose Admin Acetylcysteine (Mucomyst) 200 mg Q6HRT HHN 07/08/18 19:00 08/07/18 18:59 07/10/18 07:32 Albuterol/ Ipratropium (Albuterol/ Ipratropium) 3 ml Q4H PRN HHN Shortness of Breath 07/08/18 15:00 07/13/18 14:59 Albuterol/ Ipratropium (Albuterol/ Ipratropium) 3 ml Q6HRT HHN 07/08/18 19:00 07/13/18 18:59 07/10/18 07:32 Carbidopa/Levodopa (Sinemet 25/250) 1 tab BID@0730,1230 GT 07/09/18 07:30 08/08/18 07:29 07/10/18 06:09 Chlorhexidine Gluconate (Yolanda-Hex 2%) 1 applic DAILY@2000 TOPIC 07/10/18 20:00 08/09/18 19:59 Dextrose 1,000 ml @ 75 mls/hr [id number] IV 07/08/18 18:30 08/07/18 18:29 07/09/18 20:36 Dextrose (Dextrose 50%) 25 ml Q30M PRN IV Hypoglycemia 07/08/18 12:15 08/07/18 12:14 Dextrose (Dextrose 50%) 50 ml Q30M PRN IV Hypoglycemia 07/08/18 12:15 08/07/18 12:14 Diphenhydramine HCl (Benadryl) 25 mg Q6H PRN GT Itching 07/08/18 12:15 08/07/18 12:14 Docusate Sodium (Colace) 100 mg TIDPRN PRN GT Constipation 07/08/18 12:15 08/07/18 12:14 EZETIMIBE (Zetia) 10 mg BEDTIME GT 07/08/18 21:00 08/07/18 20:59 07/09/18 20:36 Famotidine (Pepcid) 20 mg DAILY GT 07/09/18 09:00 08/08/18 08:59 07/10/18 08:36 Levothyroxine Sodium (Synthroid) 112 mcg DAILY@0630 GT 07/09/18 06:30 08/08/18 06:29 07/10/18 06:09 Piperacillin Sod/ Tazobactam Sod 3.375 gm/Sodium Chloride 110 ml @ 27.5 mls/hr EVERY 8 HOURS IVPB 07/08/18 14:00 07/13/18 13:59 07/10/18 06:09 Ropinirole HCl (Requip) 1 mg BID@0730,1230 GT 07/09/18 07:30 08/08/18 07:29 07/10/18 06:10 Tramadol HCl (Ultram) 25 mg Q6H PRN GT For Pain 07/08/18 12:32 07/15/18 12:31 Vancomycin HCl (Vanco rx to dose) 1 ea DAILY PRN MISC . 07/09/18 12:45 08/08/18 12:44 Vancomycin HCl 500 mg/Dextrose 110 ml @ 110 mls/hr Q24H IVPB 07/09/18 14:00 07/14/18 13:59 07/09/18 14:10 Vitamin D (Vitamin D) 1,000 intlu EVERY 8 HOURS GT 07/08/18 14:00 08/07/18 12:59 07/10/18 06:09 Warfarin Sodium (Coumadin per pharmacy) 1 ea DAILY PRN MISC Per RX Protocol 07/09/18 09:00 08/08/18 08:59 Warfarin Sodium (Coumadin) 1 mg ONCE ORAL 07/10/18 17:00 07/10/18 19:00 Kevyn Caraballo MD Jul 10, 2018 12:34
[2018-07-10] MEDS: Vancomycin 500mg/D5W 110ml IVPB SCH ×2 (13:39)
--- NOTE | 2018-07-10 15:45 | NUR ---
NURSE NOTES:WOUND CARE NOTES:Pt presented on admission with Full thickness sacral pressure injury. Base of wound granular with undermining and bone exposure. . Small amt non-odorous serosanguineous exudate. Periwound dark without erythema or induration. (L)4.5cm x (W)8cm x (D)0.5cm ,undermining 12-12 by 4.5cm @12o'clock. Full thickness wound noted to lateral L tibia. Base of wound moist with biofilm.Marginal erythema along edges. Periwound without erythema or induration. Small amt non-odorous serous exudate noted.(L) 1.8cm x (W)0.7cm x (D)0.4cm. Skin tear with flap in-situ noted to lateral L knee. No exudate noted. Skin tear les R tibia with 10% flap loss. No exudate noted. Scattered senile purpuras bilat lower ext. Non-Blanchabl erythema with fluctuance noted to R and L heels. Tx.Plan:Cleanse Sacral wound with Saline. Loosely pack wound with Hydrogel infused Kerlix. Apply Triad Paste periwound. Cover with Optifoam drsg. Change Daily and prn. Cleanse wound lateral L Tibia with Saline. Apply Hydrogel. Apply Cavilon Skin Barrier periwound. Cover with Optifoam drsg. Change daily and prn. Apply Optifoam drsgs to Skin Tears les R tibia and Lateral L knee .Change every 7 days and prn. Apply Cavilon Skin BArrier to R and L heels . Cover each heel with Optifoam Drsg. Change every 7 days and prn. Air Fluidized mattress. Reposition at least every 2hours or as tolerated. Off-load heels with pillow.
[2018-07-10 16:00] VITALS: BP 112/64
[2018-07-10] MEDS ORDERED: Warfarin Sodium 1mg ORAL SCH (17:00)
[2018-07-10] MEDS ORDERED: ZINC SULFATE220 M1 GT (18:14)
[2018-07-10] MEDS ORDERED: TRAMADOL HCL50 MG GT ×2 (18:14)
[2018-07-10] MEDS ORDERED: ACETAMINOP160 MG/5 M GT (18:14)
[2018-07-10] MEDS ORDERED: FUROSEMIDE20 M1 GT (18:14)
[2018-07-10] MEDS ORDERED: BENADRYL A12.5 MG/5 GT (18:14)
[2018-07-10] MEDS ORDERED: WARFARIN SODIUM4 MG ORAL (18:14)
[2018-07-10] MEDS ORDERED: MILK OF MA400 MG/51 GT (18:14)
[2018-07-10] MEDS ORDERED: FERROUS SU220 MG/53 GT (18:14)
[2018-07-10] MEDS ORDERED: ACETAMINOP160 MG/5 M ORAL (18:14)
[2018-07-10] MEDS ORDERED: MIRALAX17 G2 GT (18:14)
[2018-07-10] MEDS ORDERED: COLACE100 MG/10 GT (18:14)
[2018-07-10] MEDS ORDERED: FAMOTIDINE20 MG GT (18:14)
[2018-07-10] MEDS ORDERED: VITAMIN D1000 UNI1 GT (18:14)
--- NOTE | 2018-07-10 19:10 | NUR ---
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
--- NOTE | 2018-07-10 19:18 | NUR ---
HAND-OFF: Report given to ALIZE Larios.
[2018-07-10 20:00] VITALS: BP 113/60
[2018-07-10] MEDS ORDERED: Dyna-Hex 2% Top Sol 2oz TOPIC SCH (20:00)
[2018-07-11] VITALS: BP 120/61
[2018-07-11] MEDS: Albuterol/Ipratropium 3ml neb HHN SCH ×2 (01:47→07:20)
[2018-07-11] MEDS: Acetylcysteine 20% Soln 4ml HHN SCH ×2 (01:47→07:20)
[2018-07-11 04:00] VITALS: BP 104/59
[2018-07-11] MEDS: Vitamin D 1000 IU Tab GT SCH (06:15)
[2018-07-11] MEDS: Levodopa/Carbidopa 25/250 tab GT SCH ×2 (06:16→12:22)
[2018-07-11] MEDS: Zoysn 3.37gm in NS 100ML IVPB SCH (06:17)
[2018-07-11 06:35] LABS: INR 1.5 (0.9-1.1)
[2018-07-11 06:36] LABS: HEMATOCRIT 28.3 % (37.0-47.0); HEMOGLOBIN 8.5 G/DL (12.0-16.0); MEAN CORPUSCULAR VOLUME 94 FL (80-99); PLATELET COUNT 79 K/UL (150-450); RED BLOOD COUNT 3.02 M/UL (4.20-5.40); RED CELL DISTRIBUTION WIDTH 21.5 % (11.6-14.8); WHITE BLOOD COUNT 10.5 K/UL (4.8-10.8)
[2018-07-11 07:01] LABS: ANION GAP 6 mmol/L (5-15); BLOOD UREA NITROGEN 26 mg/dL (7-18); CALCIUM 8.2 MG/DL (8.5-10.1); CARBON DIOXIDE 26 MMOL/L (21-32); CHLORIDE 112 MMOL/L (98-107); CREATININE 0.5 MG/DL (0.55-1.30); POTASSIUM 3.9 MMOL/L (3.5-5.1); SODIUM 144 MMOL/L (136-145)
--- NOTE | 2018-07-11 07:01 | NUR ---
HAND-OFF: Report given to ALIZE Hilton.Patient stable.
--- NOTE | 2018-07-11 07:54 | Nephrology Progress Note ---
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 at DC today Subjective Date patient seen: Jul 11, 2018 Time patient seen: 07:52 ROS Limited/Unobtainable: Yes Allergies: Coded Allergies: STRAWBERRY (Verified Allergy, Unknown, Rash, 06/29/13) COPIED FROM UNCODED SECTION VALSARTAN (Verified Allergy, Unknown, 03/09/11) Subjective Patient nonverbal, remains off BiPAP Objective Last 24 Hour Vital Signs Date Time Temp Pulse Resp B/P (MAP) Pulse Ox O2 Delivery O2 Flow Rate FiO2 07/11/18 07:29 72 20 100 Venturi Mask 3.0 28 07/11/18 07:20 28 07/11/18 07:20 70 20 100 Venturi Mask 3.0 28 07/11/18 07:20 100 Venturi Mask 3.0 28 07/11/18 05:12 63 18 100 07/11/18 04:00 30 07/11/18 04:00 97.9 63 18 104/59 (74) 100 07/11/18 04:00 Bi-pap 07/11/18 03:56 62 07/11/18 03:11 63 18 100 Facial 25 07/11/18 01:57 59 18 100 Bi-pap 25 07/11/18 01:47 60 18 99 Facial 25 07/11/18 01:47 62 18 100 Bi-pap 25 07/11/18 01:47 28 07/11/18 00:00 Bi-pap 07/11/18 00:00 98.1 66 16 120/61 (80) 99 07/10/18 23:23 64 07/10/18 20:00 4.0 25 07/10/18 20:00 Bi-pap 07/10/18 20:00 98.1 78 16 113/60 (77) 96 07/10/18 19:35 67 07/10/18 19:22 70 18 100 Venturi Mask 3.0 28 07/10/18 19:12 28 07/10/18 19:12 64 18 100 Venturi Mask 3.0 28 07/10/18 19:12 100 Venturi Mask 3.0 28 07/10/18 16:00 Bi-pap 07/10/18 16:00 69 07/10/18 16:00 4.0 25 07/10/18 16:00 96.6 69 20 112/64 (80) 97 07/10/18 14:00 77 20 100 Venturi Mask 3.0 28 07/10/18 13:52 28 07/10/18 13:50 75 20 97 Venturi Mask 3.0 28 07/10/18 12:00 Bi-pap 07/10/18 12:00 97.0 74 20 140/60 (86) 97 07/10/18 12:00 73 07/10/18 12:00 4.0 25 07/10/18 08:00 4.0 25 07/10/18 08:00 Bi-pap 07/10/18 08:00 98.2 76 20 103/62 (76) 95 07/10/18 08:00 76 Intake and Output 07/10/18 07/11/18 19:00 07:00 Intake Total 890 ml 1814.0 ml Output Total 475 ml 700 ml Balance 415 ml 1114.0 ml Free Water 275 ml 430 ml IV Total 75 ml 844.0 ml Tube Feeding 540 ml 540 ml Output Urine Total 475 ml 700 ml # Bowel Movements 5 2 Laboratory Tests 07/11/18 05:25: White Blood Count 10.5, Red Blood Count 3.02L, Hemoglobin 8.5L, Hematocrit 28.3L , Mean Corpuscular Volume 94, Mean Corpuscular Hemoglobin 28.3, Mean Corpuscular Hemoglobin Concent 30.2L, Red Cell Distribution Width 21.5H, Platelet Count 79L, Mean Platelet Volume 14.7H, Neutrophils (%) (Auto) , Lymphocytes (%) (Auto) , Monocytes (%) (Auto) , Eosinophils (%) (Auto) , Basophils (%) (Auto) , Neutrophils % (Manual) [Pending], Lymphocytes % (Manual) [Pending], Platelet Estimate [Pending], Platelet Morphology [Pending], Prothrombin Time 16.1H, Prothromb Time International Ratio 1.5H, Sodium Level 144, Potassium Level 3.9, Chloride Level 112H, Carbon Dioxide Level 26, Anion Gap 6, Blood Urea Nitrogen 26H, Creatinine 0.5L, Estimat Glomerular Filtration Rate , Glucose Level 134H, Calcium Level 8.2L Height (Feet): 5 Height (Inches): 6.00 Weight (Pounds): 108 General Appearance: no apparent distress EENT: normal ENT inspection Neck: normal alignment Cardiovascular: normal rate, regular rhythm Respiratory/Chest: rhonchi - bilaterally Abdomen: non tender, soft Edema: no edema noted Arm (L), no edema noted Arm (R), no edema noted Leg (L), no edema noted Leg (R), no edema noted Pedal (L), no edema noted Pedal (R), no edema noted Generalized Jeremiah Mclaughlin MD Jul 11, 2018 07:53
--- NOTE | 2018-07-11 07:56 | Discharge Instructions ---
Discharge Instructions Discharge Instructions Services at Discharge: day care Diet: tube feeding Follow Up Orders DC back to [facility] Continue same medications prior to DC except for changes in antibiotics For Congestive Heart Failure Reminder Report to your physician any weight gain of 5 pounds or more in one week. Jeremiah Mclaughlin MD Jul 11, 2018 07:56
[2018-07-11 08:55] VITALS: BP 96/57
--- NOTE | 2018-07-11 10:19 | Consultation ---
History of Present Illness General Date patient seen: Jul 11, 2018 Chief Complaint: Dyspnea/Respdistress Reason for Consultation: PNA Present Illness HPI Ms. Benjamin is a 88 yo female with PMHx of HTN, COPD, CVA, Hypothyroid, DVT/ PE and Demeintia who was brought to the ED on 07/08/18 for respiratry distress. She was found to be retaining CO2 and was placed on BiPAP. Her WBCs were elevated at 15 on admit and she was aferbile. Intial CXR showed RUL atelectasis vs consolidation but repeat CXR the next day showed CHF and edema. She has been on the BiPAP intermittely this hospitalization and is not verbal so the history is obtained from the chart. Per the promary not she is on IV abx at her correction for sacral OM and has been getting wound care and debridments for this. Zosyn awas contineued for this indication and vancomycin was added. ID consulted for PNA PMHx/PSHx HTN COPD CVA Hypothyroid DVT/PE Demeintia Sacral ulcer/OM S/P Debridment SocHx No E/T/D FamHx Unable to obtain as patient not verbal Allergies: Coded Allergies: STRAWBERRY (Verified Allergy, Unknown, Rash, 06/29/13) COPIED FROM UNCODED SECTION VALSARTAN (Verified Allergy, Unknown, 03/09/11) Medication History Scheduled Amlodipine Besylate* (Amlodipine Besylate*), 2.5 MG ORAL DAILY, (Reported) Calcium Carbonate (Calcium), 1,000 MG GT BID, (Reported) Carbidopa/Levodopa* (Sinemet 25-250 Mg Tablet*), 1 TAB GT BID, (Reported) Cholecalciferol (Vitamin D3)* (Vitamin D*), 1,000 UNIT GT TID, (Reported) Dextran 70/Hypromellose (Artificial Tears Eye Drops*), 1 DROP BOTH EYES QID, ( Reported) Ezetimibe (Zetia*), 10 MG GT BEDTIME, (Reported) Famotidine (Famotidine), 20 MG GT DAILY, (Reported) Ferrous Sulfate (Ferrous Sulfate), 6.8 ML GT DAILY, (Reported) Lactobacillus Rhamnosus Gg (Culturelle), 1 EACH GT BID, (Reported) Levothyroxine Sodium* (Synthroid*), 112 MCG GT DAILY, (Reported) Multivitamins* (Multivitamins*), 1 TAB ORAL DAILY, (Reported) Ropinirole Hcl* (Ropinirole Hcl*), 1 MG GT BID, (Reported) Simvastatin (Zocor), 20 MG GT BEDTIME, (Reported) Warfarin Sod* (Warfarin Sod*), 4 MG ORAL DAILY, (Reported) Zinc Sulfate (Zinc Sulfate*), 220 MG GT DAILY, (Reported) Scheduled PRN Acetaminophen 160MG/5ML* (Acetaminophen*), 16 ML GT Q4HR PRN for For Pain Level <=5, (Reported) Diphenhydramine Hcl* (Benadryl Allergy*), 25 MG GT Q6HR PRN for Itching, ( Reported) Docusate Sodium (Docusate Sodium), 100 MG GT DAILY PRN for Constipation, ( Reported) Ipratropium/Albuterol Sulfate (DuoNeb 0.5-3(2.5)mg/3ml), 3 ML HHN Q6HR PRN for Shortness of Breath, (Reported) Magnesium Hydroxide* (Milk Of Magnesia*), 30 ML GT DAILY PRN for DOCUSATE INEFFECTIVE, (Reported) Polyethylene Glycol 3350* (Miralax*), 17 GM GT DAILY PRN for Constipation, ( Reported) Tramadol Hcl* (Ultram*), 25 MG GT DAILY PRN for For Pain, (Reported) Discontinued Medications Acetaminophen 160MG/5ML* (Acetaminophen*), 21 ML ORAL Q4HR PRN for PAIN 5-7/10, (Reported) Discontinued Reason: Therapy completed Ascorbic Acid* (Vitamin C*), 500 MG ORAL DAILY, (Reported) Discontinued Reason: Pt stopped taking med Docusate Sodium* (Docusate Sodium*), 200 MG ORAL DAILY, (Reported) Discontinued Reason: Pt stopped taking med Ferrous Sulfate (Ferrous Sulfate), 325 MG ORAL BID, (Reported) Discontinued Reason: Prescription changed Furosemide* (Lasix*), 20 MG GT TID, (Reported) Discontinued Reason: Therapy completed Mirtazapine* (Mirtazapine*), 15 MG ORAL BEDTIME Discontinued Reason: Pt stopped taking med Pantoprazole* (Pantoprazole*), 40 MG ORAL DAILY, (Reported) Discontinued Reason: Pt stopped taking med Tramadol Hcl* (Ultram*), 25 MG GT Q6H PRN for PAIN 8-10, (Reported) Discontinued Reason: Therapy completed Warfarin Sod* (Warfarin Sod*), 6 MG ORAL DAILY, (Reported) Discontinued Reason: Prescription changed Patient History Healthcare decision maker Chelly Xavier Resuscitation status Do Not Resuscitate Advanced Directive on File Review of Systems ROS Narrative Unable to obtain as patient not verbal Physical Exam Last 24 Hour Vital Signs Date Time Temp Pulse Resp B/P (MAP) Pulse Ox O2 Delivery O2 Flow Rate FiO2 07/11/18 08:55 97.7 72 18 96/57 (70) 98 07/11/18 08:00 Bi-pap 07/11/18 08:00 4.0 25 07/11/18 07:29 72 20 100 Venturi Mask 3.0 07/11/18 07:20 28 07/11/18 07:20 70 20 100 Venturi Mask 3.0 07/11/18 07:20 100 Venturi Mask 3.0 07/11/18 05:12 63 18 100 07/11/18 04:00 30 07/11/18 04:00 97.9 63 18 104/59 (74) 100 07/11/18 04:00 Bi-pap 07/11/18 03:56 62 07/11/18 03:11 63 18 100 Facial 25 07/11/18 01:57 59 18 100 Bi-pap 25 07/11/18 01:47 60 18 99 Facial 25 07/11/18 01:47 62 18 100 Bi-pap 25 07/11/18 01:47 28 07/11/18 00:00 Bi-pap 07/11/18 00:00 98.1 66 16 120/61 (80) 99 07/10/18 23:23 64 07/10/18 20:00 4.0 25 07/10/18 20:00 Bi-pap 07/10/18 20:00 98.1 78 16 113/60 (77) 96 07/10/18 19:35 67 07/10/18 19:22 70 18 100 Venturi Mask 3.0 07/10/18 19:12 28 07/10/18 19:12 64 18 100 Venturi Mask 3.0 07/10/18 19:12 100 Venturi Mask 3.0 07/10/18 16:00 Bi-pap 07/10/18 16:00 69 07/10/18 16:00 4.0 25 07/10/18 16:00 96.6 69 20 112/64 (80) 97 07/10/18 14:00 77 20 100 Venturi Mask 3.0 28 07/10/18 13:52 28 07/10/18 13:50 75 20 97 Venturi Mask 3.0 28 07/10/18 12:00 Bi-pap 07/10/18 12:00 97.0 74 20 140/60 (86) 97 07/10/18 12:00 73 07/10/18 12:00 4.0 25 Intake and Output 07/10/18 07/11/18 19:00 07:00 Intake Total 890 ml 1814.0 ml Output Total 475 ml 700 ml Balance 415 ml 1114.0 ml Free Water 275 ml 430 ml IV Total 75 ml 844.0 ml Tube Feeding 540 ml 540 ml Output Urine Total 475 ml 700 ml # Bowel Movements 5 2 Laboratory Tests Test 07/11/18 05:25 White Blood Count 10.5 K/UL (4.8-10.8) Red Blood Count 3.02 M/UL (4.20-5.40) L Hemoglobin 8.5 G/DL (12.0-16.0) L Hematocrit 28.3 % (37.0-47.0) L Mean Corpuscular Volume 94 FL (80-99) Mean Corpuscular Hemoglobin 28.3 PG (27.0-31.0) Mean Corpuscular Hemoglobin Concent 30.2 G/DL (32.0-36.0) L Red Cell Distribution Width 21.5 % (11.6-14.8) H Platelet Count 79 K/UL (150-450) L Mean Platelet Volume 14.7 FL (6.5-10.1) H Neutrophils (%) (Auto) % (45.0-75.0) Lymphocytes (%) (Auto) % (20.0-45.0) Monocytes (%) (Auto) % (1.0-10.0) Eosinophils (%) (Auto) % (0.0-3.0) Basophils (%) (Auto) % (0.0-2.0) Differential Total Cells Counted 100 Neutrophils % (Manual) 70 % (45-75) Lymphocytes % (Manual) 18 % (20-45) L Monocytes % (Manual) 5 % (1-10) Eosinophils % (Manual) 6 % (0-3) H Basophils % (Manual) 1 % (0-2) Band Neutrophils 0 % (0-8) Platelet Estimate Decreased L Platelet Morphology Normal Hypochromasia 2+ Anisocytosis 3+ Prothrombin Time 16.1 SEC (9.30-11.50) H Prothromb Time International Ratio 1.5 (0.9-1.1) H Sodium Level 144 MMOL/L (136-145) Potassium Level 3.9 MMOL/L (3.5-5.1) Chloride Level 112 MMOL/L (98-107) H Carbon Dioxide Level 26 MMOL/L (21-32) Anion Gap 6 mmol/L (5-15) Blood Urea Nitrogen 26 mg/dL (7-18) H Creatinine 0.5 MG/DL (0.55-1.30) L Estimat Glomerular Filtration Rate mL/min (>60) Glucose Level 134 MG/DL (74-106) H Calcium Level 8.2 MG/DL (8.5-10.1) L Height (Feet): 5 Height (Inches): 6.00 Weight (Pounds): 108 Medications Current Medications Medications (Trade) Dose Ordered Sig/Marcel Route PRN Reason Start Time Stop Time Status Last Admin Dose Admin Acetylcysteine (Mucomyst) 200 mg Q6HRT N 07/08/18 19:00 08/07/18 18:59 07/11/18 07:20 Albuterol/ Ipratropium (Albuterol/ Ipratropium) 3 ml Q4H PRN HHN Shortness of Breath 07/08/18 15:00 07/13/18 14:59 Albuterol/ Ipratropium (Albuterol/ Ipratropium) 3 ml Q6HRT N 07/08/18 19:00 07/13/18 18:59 07/11/18 07:20 Carbidopa/Levodopa (Sinemet 25/250) 1 tab BID@0730,1230 GT 07/09/18 07:30 08/08/18 07:29 07/11/18 06:16 Chlorhexidine Gluconate (Yolanda-Hex 2%) 1 applic DAILY@2000 TOPIC 07/10/18 20:00 08/09/18 19:59 07/10/18 21:23 Dextrose 1,000 ml @ 75 mls/hr [id number] IV 07/08/18 18:30 08/07/18 18:29 07/11/18 00:19 Dextrose (Dextrose 50%) 25 ml Q30M PRN IV Hypoglycemia 07/08/18 12:15 08/07/18 12:14 Dextrose (Dextrose 50%) 50 ml Q30M PRN IV Hypoglycemia 07/08/18 12:15 08/07/18 12:14 Diphenhydramine HCl (Benadryl) 25 mg Q6H PRN GT Itching 07/08/18 12:15 08/07/18 12:14 Docusate Sodium (Colace) 100 mg TIDPRN PRN GT Constipation 07/08/18 12:15 08/07/18 12:14 EZETIMIBE (Zetia) 10 mg BEDTIME GT 07/08/18 21:00 08/07/18 20:59 07/10/18 21:23 Famotidine (Pepcid) 20 mg DAILY GT 07/09/18 09:00 08/08/18 08:59 07/11/18 08:09 Levothyroxine Sodium (Synthroid) 112 mcg DAILY@0630 GT 07/09/18 06:30 08/08/18 06:29 07/11/18 06:15 Piperacillin Sod/ Tazobactam Sod 3.375 gm/Sodium Chloride 110 ml @ 27.5 mls/hr EVERY 8 HOURS IVPB 07/08/18 14:00 07/13/18 13:59 07/11/18 06:17 Ropinirole HCl (Requip) 1 mg BID@0730,1230 GT 07/09/18 07:30 08/08/18 07:29 07/11/18 06:16 Tramadol HCl (Ultram) 25 mg Q6H PRN GT For Pain 07/08/18 12:32 07/15/18 12:31 Vancomycin HCl (Vanco rx to dose) 1 ea DAILY PRN MISC . 07/09/18 12:45 08/08/18 12:44 Vancomycin HCl 500 mg/Dextrose 110 ml @ 110 mls/hr Q24H IVPB 07/09/18 14:00 07/14/18 13:59 07/10/18 13:39 Vitamin D (Vitamin D) 1,000 intlu EVERY 8 HOURS GT 07/08/18 14:00 08/07/18 12:59 07/11/18 06:15 Warfarin Sodium (Coumadin per pharmacy) 1 ea DAILY PRN MISC Per RX Protocol 07/09/18 09:00 08/08/18 08:59 Warfarin Sodium (Coumadin) 3 mg COUMADIN ORAL 07/11/18 17:00 07/11/18 18:00 Objective Narrative Gen: Awake on Ventimask HEENT: NCAT, MMM, EOMI, PERRL NECK: supple, no meningismus, No LAD, No JVD LUNGS: Coarse B/L, No W/C, No Accessory muscle use CARDS: RRR, S1, S2, No M/R/G, ABD: Soft, NT, ND, No R/G, + BS, No HSM, No Masses : Deferred Ext: C/C/E, Pulses 2+ B/L (DP, Rad): NEURO: A/O x 0, Strength and Sensation Grossly intact PSYCH: Mood/affect normal SKIN: Warm/dry, No rashes Assessment/Plan Assessment/Plan: 88 yo female with PMHx of HTN, COPD, CVA, Hypothyroid, DVT/PE and Demeintia who was brought to the ED on 07/08/18 for respiratry distress. Respiratry distress CHF vs Asp PNA. Patient on Zosyn CXR 07/09/18 only edema/CHF Afebrile Leukocytosis resolved Sacral OM On Zosyn for planned 8 week course per primary Getting wound care and debridments Funguria UA + Likely fungal over growth from prolonged abx Bacteremia Likely contamiant Blood Cx 07/08/18 - S. cap 1/2 bottles HTN COPD CVA Hypothyroid DVT/PE Demeintia Sacral ulcer/OM S/P Debridment PLAN - Would continue Zosyn for planned OM Tx as per primary notes Would treat for 8 weeks with the IV Zosyn If the bone is infected there is a high chance of recurrent ulcer. Surgery with flap coverage would be the recommended Tx that this case. 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 We will continue to follow the patient during this hospitalization. Nomi Fallon MD Jul 11, 2018 10:19
--- NOTE | 2018-07-11 10:47 | Consultation ---
History of Present Illness General Date patient seen: Jul 11, 2018 Reason for Hospitalization: Dyspnea/Respdistress Present Illness HPI 88 year old female skilled nursing resident with multiple medical comorbidities presented for care and management. on admission noted to have large wound requiring care. surgery called to evaluate. patient seen, chart reviewed, patient examined. Allergies: Coded Allergies: STRAWBERRY (Verified Allergy, Unknown, Rash, 06/29/13) COPIED FROM UNCODED SECTION VALSARTAN (Verified Allergy, Unknown, 03/09/11) Medication History Scheduled Amlodipine Besylate* (Amlodipine Besylate*), 2.5 MG ORAL DAILY, (Reported) Calcium Carbonate (Calcium), 1,000 MG GT BID, (Reported) Carbidopa/Levodopa* (Sinemet 25-250 Mg Tablet*), 1 TAB GT BID, (Reported) Cholecalciferol (Vitamin D3)* (Vitamin D*), 1,000 UNIT GT TID, (Reported) Dextran 70/Hypromellose (Artificial Tears Eye Drops*), 1 DROP BOTH EYES QID, ( Reported) Ezetimibe (Zetia*), 10 MG GT BEDTIME, (Reported) Famotidine (Famotidine), 20 MG GT DAILY, (Reported) Ferrous Sulfate (Ferrous Sulfate), 6.8 ML GT DAILY, (Reported) Furosemide* (Lasix*), 20 MG GT TID, (Reported) Lactobacillus Rhamnosus Gg (Culturelle), 1 EACH GT BID, (Reported) Levothyroxine Sodium* (Synthroid*), 112 MCG GT DAILY, (Reported) Multivitamins* (Multivitamins*), 1 TAB ORAL DAILY, (Reported) Ropinirole Hcl* (Ropinirole Hcl*), 1 MG GT BID, (Reported) Simvastatin (Zocor), 20 MG GT BEDTIME, (Reported) Warfarin Sod* (Warfarin Sod*), 4 MG ORAL DAILY, (Reported) Zinc Sulfate (Zinc Sulfate*), 220 MG GT DAILY, (Reported) Scheduled PRN Acetaminophen 160MG/5ML* (Acetaminophen*), 16 ML GT Q4HR PRN for For Pain Level <=5, (Reported) Acetaminophen 160MG/5ML* (Acetaminophen*), 21 ML ORAL Q4HR PRN for PAIN 5-7/10, (Reported) Diphenhydramine Hcl* (Benadryl Allergy*), 25 MG GT Q6HR PRN for Itching, ( Reported) Docusate Sodium (Docusate Sodium), 100 MG GT DAILY PRN for Constipation, ( Reported) Ipratropium/Albuterol Sulfate (DuoNeb 0.5-3(2.5)mg/3ml), 3 ML HHN Q6HR PRN for Shortness of Breath, (Reported) Magnesium Hydroxide* (Milk Of Magnesia*), 30 ML GT DAILY PRN for DOCUSATE INEFFECTIVE, (Reported) Polyethylene Glycol 3350* (Miralax*), 17 GM GT DAILY PRN for Constipation, ( Reported) Tramadol Hcl* (Ultram*), 25 MG GT DAILY PRN for For Pain, (Reported) Tramadol Hcl* (Ultram*), 25 MG GT Q6H PRN for PAIN 8-10, (Reported) Discontinued Medications Ascorbic Acid* (Vitamin C*), 500 MG ORAL DAILY, (Reported) Discontinued Reason: Pt stopped taking med Docusate Sodium* (Docusate Sodium*), 200 MG ORAL DAILY, (Reported) Discontinued Reason: Pt stopped taking med Ferrous Sulfate (Ferrous Sulfate), 325 MG ORAL BID, (Reported) Discontinued Reason: Prescription changed Mirtazapine* (Mirtazapine*), 15 MG ORAL BEDTIME Discontinued Reason: Pt stopped taking med Pantoprazole* (Pantoprazole*), 40 MG ORAL DAILY, (Reported) Discontinued Reason: Pt stopped taking med Warfarin Sod* (Warfarin Sod*), 6 MG ORAL DAILY, (Reported) Discontinued Reason: Prescription changed Patient History Limited by: medical condition History Provided By: Medical Record, PMD Healthcare decision maker Chelly Xavier Resuscitation status Do Not Resuscitate Advanced Directive on File Review of Systems Review of Symptoms General ROS: no weight loss or fever Psychological ROS: no depression or mood changes, no memory loss Ophthalmic ROS: no visual changes or eye irritation ENT ROS: no nasal congestion, hearing loss, dizziness Allergy and Immunology ROS: no allergic symptoms or urticaria Hematological and Lymphatic ROS: no swollen glands, unusual bleeding or bruising Endocrine ROS: no polyuria, polydipsia, weight changes, temperature intolerance Respiratory ROS: no cough, shortness of breath, or wheezing Cardiovascular ROS: no chest pain or dyspnea on exertion Gastrointestinal ROS: denies abdominal pain, bright red blood in stool. Musculoskeletal ROS: no myalgias or arthralgias Neurological ROS: no TIA or stroke symptoms Dermatological ROS: no new or changing skin lesions, rashes or pruritis Physical Exam Physical Exam General appearance: alert, cooperative, no distress, appears stated age Head: Normocephalic, without obvious abnormality, atraumatic Eyes: conjunctivae/corneas clear. PERRL, EOM's intact. Fundi benign Throat: Lips, mucosa, and tongue normal. Teeth and gums normal Neck: supple, symmetrical, trachea midline, no adenopathy, thyroid: not enlarged, symmetric, no tenderness/mass/nodules, no carotid bruit and no JVD Lungs: clear to auscultation bilaterally Heart: regular rate and rhythm, S1, S2 normal, no murmur, click, rub or gallop Abdomen: soft, non-tender. Bowel sounds normal. No masses, no organomegaly Extremities: extremities normal, atraumatic, no cyanosis or edema Pulses: 2+ and symmetric Skin: Skin color, texture, turgor normal. No rashes or lesions Neurologic: Grossly normal Last 24 Hour Vital Signs Date Time Temp Pulse Resp B/P (MAP) Pulse Ox O2 Delivery O2 Flow Rate FiO2 07/11/18 08:55 97.7 72 18 96/57 (70) 98 07/11/18 08:00 Bi-pap 07/11/18 08:00 4.0 25 07/11/18 07:29 72 20 100 Venturi Mask 3.0 28 07/11/18 07:20 28 07/11/18 07:20 70 20 100 Venturi Mask 3.0 07/11/18 07:20 100 Venturi Mask 3.0 07/11/18 05:12 63 18 100 07/11/18 04:00 30 07/11/18 04:00 97.9 63 18 104/59 (74) 100 07/11/18 04:00 Bi-pap 07/11/18 03:56 62 07/11/18 03:11 63 18 100 Facial 25 07/11/18 01:57 59 18 100 Bi-pap 25 07/11/18 01:47 60 18 99 Facial 25 07/11/18 01:47 62 18 100 Bi-pap 25 07/11/18 01:47 28 07/11/18 00:00 Bi-pap 07/11/18 00:00 98.1 66 16 120/61 (80) 99 07/10/18 23:23 64 07/10/18 20:00 4.0 25 07/10/18 20:00 Bi-pap 07/10/18 20:00 98.1 78 16 113/60 (77) 96 07/10/18 19:35 67 07/10/18 19:22 70 18 100 Venturi Mask 3.0 28 07/10/18 19:12 28 07/10/18 19:12 64 18 100 Venturi Mask 3.0 28 07/10/18 19:12 100 Venturi Mask 3.0 28 07/10/18 16:00 Bi-pap 07/10/18 16:00 69 07/10/18 16:00 4.0 25 07/10/18 16:00 96.6 69 20 112/64 (80) 97 07/10/18 14:00 77 20 100 Venturi Mask 3.0 28 07/10/18 13:52 28 07/10/18 13:50 75 20 97 Venturi Mask 3.0 28 07/10/18 12:00 Bi-pap 07/10/18 12:00 97.0 74 20 140/60 (86) 97 07/10/18 12:00 73 07/10/18 12:00 4.0 25 Intake and Output 07/10/18 07/11/18 19:00 07:00 Intake Total 890 ml 1814.0 ml Output Total 475 ml 700 ml Balance 415 ml 1114.0 ml Free Water 275 ml 430 ml IV Total 75 ml 844.0 ml Tube Feeding 540 ml 540 ml Output Urine Total 475 ml 700 ml # Bowel Movements 5 2 Laboratory Tests Test 07/11/18 05:25 White Blood Count 10.5 K/UL (4.8-10.8) Red Blood Count 3.02 M/UL (4.20-5.40) L Hemoglobin 8.5 G/DL (12.0-16.0) L Hematocrit 28.3 % (37.0-47.0) L Mean Corpuscular Volume 94 FL (80-99) Mean Corpuscular Hemoglobin 28.3 PG (27.0-31.0) Mean Corpuscular Hemoglobin Concent 30.2 G/DL (32.0-36.0) L Red Cell Distribution Width 21.5 % (11.6-14.8) H Platelet Count 79 K/UL (150-450) L Mean Platelet Volume 14.7 FL (6.5-10.1) H Neutrophils (%) (Auto) % (45.0-75.0) Lymphocytes (%) (Auto) % (20.0-45.0) Monocytes (%) (Auto) % (1.0-10.0) Eosinophils (%) (Auto) % (0.0-3.0) Basophils (%) (Auto) % (0.0-2.0) Differential Total Cells Counted 100 Neutrophils % (Manual) 70 % (45-75) Lymphocytes % (Manual) 18 % (20-45) L Monocytes % (Manual) 5 % (1-10) Eosinophils % (Manual) 6 % (0-3) H Basophils % (Manual) 1 % (0-2) Band Neutrophils 0 % (0-8) Platelet Estimate Decreased L Platelet Morphology Normal Hypochromasia 2+ Anisocytosis 3+ Prothrombin Time 16.1 SEC (9.30-11.50) H Prothromb Time International Ratio 1.5 (0.9-1.1) H Sodium Level 144 MMOL/L (136-145) Potassium Level 3.9 MMOL/L (3.5-5.1) Chloride Level 112 MMOL/L (98-107) H Carbon Dioxide Level 26 MMOL/L (21-32) Anion Gap 6 mmol/L (5-15) Blood Urea Nitrogen 26 mg/dL (7-18) H Creatinine 0.5 MG/DL (0.55-1.30) L Estimat Glomerular Filtration Rate mL/min (>60) Glucose Level 134 MG/DL (74-106) H Calcium Level 8.2 MG/DL (8.5-10.1) L Height (Feet): 5 Height (Inches): 6.00 Weight (Pounds): 108 Medications Current Medications Medications (Trade) Dose Ordered Sig/Marcel Route PRN Reason Start Time Stop Time Status Last Admin Dose Admin Acetylcysteine (Mucomyst) 200 mg Q6HRT HHN 07/08/18 19:00 08/07/18 18:59 07/11/18 07:20 Albuterol/ Ipratropium (Albuterol/ Ipratropium) 3 ml Q4H PRN HHN Shortness of Breath 07/08/18 15:00 07/13/18 14:59 Albuterol/ Ipratropium (Albuterol/ Ipratropium) 3 ml Q6HRT HHN 07/08/18 19:00 07/13/18 18:59 07/11/18 07:20 Carbidopa/Levodopa (Sinemet 25/250) 1 tab BID@0730,1230 GT 07/09/18 07:30 08/08/18 07:29 07/11/18 06:16 Chlorhexidine Gluconate (Yolanda-Hex 2%) 1 applic DAILY@2000 TOPIC 07/10/18 20:00 08/09/18 19:59 07/10/18 21:23 Dextrose 1,000 ml @ 75 mls/hr [id number] IV 07/08/18 18:30 08/07/18 18:29 07/11/18 00:19 Dextrose (Dextrose 50%) 25 ml Q30M PRN IV Hypoglycemia 07/08/18 12:15 08/07/18 12:14 Dextrose (Dextrose 50%) 50 ml Q30M PRN IV Hypoglycemia 07/08/18 12:15 08/07/18 12:14 Diphenhydramine HCl (Benadryl) 25 mg Q6H PRN GT Itching 07/08/18 12:15 08/07/18 12:14 Docusate Sodium (Colace) 100 mg TIDPRN PRN GT Constipation 07/08/18 12:15 08/07/18 12:14 EZETIMIBE (Zetia) 10 mg BEDTIME GT 07/08/18 21:00 08/07/18 20:59 07/10/18 21:23 Famotidine (Pepcid) 20 mg DAILY GT 07/09/18 09:00 08/08/18 08:59 07/11/18 08:09 Levothyroxine Sodium (Synthroid) 112 mcg DAILY@0630 GT 07/09/18 06:30 08/08/18 06:29 07/11/18 06:15 Piperacillin Sod/ Tazobactam Sod 3.375 gm/Sodium Chloride 110 ml @ 27.5 mls/hr EVERY 8 HOURS IVPB 07/08/18 14:00 07/13/18 13:59 07/11/18 06:17 Ropinirole HCl (Requip) 1 mg BID@0730,1230 GT 07/09/18 07:30 08/08/18 07:29 07/11/18 06:16 Tramadol HCl (Ultram) 25 mg Q6H PRN GT For Pain 07/08/18 12:32 07/15/18 12:31 Vancomycin HCl (Vanco rx to dose) 1 ea DAILY PRN MISC . 07/09/18 12:45 08/08/18 12:44 Vancomycin HCl 500 mg/Dextrose 110 ml @ 110 mls/hr Q24H IVPB 07/09/18 14:00 07/14/18 13:59 07/10/18 13:39 Vitamin D (Vitamin D) 1,000 intlu EVERY 8 HOURS GT 07/08/18 14:00 08/07/18 12:59 07/11/18 06:15 Warfarin Sodium (Coumadin per pharmacy) 1 ea DAILY PRN MISC Per RX Protocol 07/09/18 09:00 08/08/18 08:59 Warfarin Sodium (Coumadin) 3 mg COUMADIN ORAL 07/11/18 17:00 07/11/18 18:00 Assessment/Plan Problem List: (1) Decubitus skin ulcer Assessment & Plan: Pt presented on admission with Full thickness sacral pressure injury. Base of wound granular with undermining and bone exposure. . Small amt non-odorous serosanguineous exudate. Periwound dark without erythema or induration. (L)4.5cm x (W)8cm x (D)0.5cm ,undermining 12-12 by 4.5cm @12o' clock. Full thickness wound noted to lateral L tibia. Base of wound moist with biofilm.Marginal erythema along edges. Periwound without erythema or induration. Small amt non-odorous serous exudate noted.(L) 1.8cm x (W)0.7cm x (D )0.4cm. Skin tear with flap in-situ noted to lateral L knee. No exudate noted. Skin tear les R tibia with 10% flap loss. No exudate noted. Scattered senile purpuras bilat lower ext. Non-Blanchabl erythema with fluctuance noted to R and L heels. Tx.Plan: Cleanse Sacral wound with Saline. Loosely pack wound with Hydrogel infused Kerlix. Apply Triad Paste periwound. Cover with Optifoam drsg. Change Daily and prn. Cleanse wound lateral L Tibia with Saline. Apply Hydrogel. Apply Cavilon Skin Barrier periwound. Cover with Optifoam drsg. Change daily and prn. Apply Optifoam drsgs to Skin Tears les R tibia and Lateral L knee .Change every 7 days and prn. Apply Cavilon Skin BArrier to R and L heels . Cover each heel with Optifoam Drsg. Change every 7 days and prn. Air Fluidized mattress. Reposition at least every 2hours or as tolerated. Off-load heels with pillow. ICD Codes: L89.90 - Pressure ulcer of unspecified site, unspecified stage SNOMED: 599046570 (2) Failure to thrive SNOMED: 56360716 (3) Dehydration ICD Codes: E86.0 - Dehydration SNOMED: 04189306 (4) Severe malnutrition Assessment & Plan: DAILY ESTIMATED NEEDS: Needs based on Wound, pulmonary, TF [employer] 49kg 30-35 kcals/kg 1652-8540 total kcals 1.25-1.8 g protein/kg 61-88 g total protein 25-30ml/kcal mL/kg 3430-1769 total fluid mLs NUTRITION DIAGNOSIS: * Swallowing difficulty R/T dysphagia as evidenced by pt is GT dependent, currently NPO on Bipap. * Increased kcal/prot needs R/T wound healing, as evidenced by multiple wounds per photo, including unstageable sacral wound. ENTERAL NUTRITION RECOMMENDATIONS: Glucerna 1.5 @50ml/hr x22 hrs to provide 1100ml, 1650kcal, 91g prot, 835ml free water * As medically able, start Glucerna 1.5 @20ml/hr for 6 hrs. Advance as tolerated 10ml/hr q4-6 hrs to goal * Hold 1 hr before and after Synthroid med. * HOB over 30 degrees/ water flush per MD. ----- ALTERNATIVELY IF PT IS ON BIPAP FOR EXTENDED TIME, REC LIMITED 12 HR TF RUN TIME -> Glucerna 1.5 @82ml/hr x12 hrs to provide 984ml, 1476 kcal, 81g pro, 747ml free H2O. -> 82ml/hr= est 5.5 tablespoons of tube feed per hour -> TF at goal meets 100% est kcal and pro needs. ADDITIONAL RECOMMENDATIONS: * RE-calibrated bedscale wt-> now w/ added P200 mattress * Wound healing: add Larry 1pkt BID + MVI w/ min daily + Vit C 500mg BID Pt was on ZnSO4 220mg daily [employer] * Monitor BGs closely, consider SSI if on steroidal med ICD Codes: E43 - Unspecified severe protein-calorie malnutrition SNOMED: 22159817 (5) Hiatal hernia ICD Codes: K44.9 - Diaphragmatic hernia without obstruction or gangrene SNOMED: 09557023 Sachin Lott Jul 11, 2018 10:47
--- NOTE | 2018-07-11 10:50 | NUR ---
NURSE NOTES: New quinn inserted per Dr. Mclaughlin's order. Patient tolerated procedure. Noted.
--- NOTE | 2018-07-11 11:26 | NUR ---
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
--- NOTE | 2018-07-11 11:50 | NUR ---
NURSE NOTES: Dr. Fallon seen and examined patient. Per MD cleared for discharge from infectious disease perspective. Upon transfer to SNF, continue Zosyn IV antibiotic treatment already receiving at SNF and discontinue Vancomycin IV. Noted.
--- NOTE | 2018-07-11 12:12 | NUR ---
NURSE NOTES: Called [facility] and gave report to ALIZE Silva. Also reported to ALIZE Silva that patient will be continuing Zosyn IV treatment already receiving at their facility. Noted. Patient will be leaving with right upper arm PICC and Joyner catheter. Noted.
--- NOTE | 2018-07-11 12:19 | Pulmonology Progress Note ---
Assessment/Plan Assessment/Plan Patient not see Note in error Subjective Allergies: Coded Allergies: STRAWBERRY (Verified Allergy, Unknown, Rash, 06/29/13) COPIED FROM UNCODED SECTION VALSARTAN (Verified Allergy, Unknown, 03/09/11) Subjective Pt not seen Objective Last 24 Hour Vital Signs Date Time Temp Pulse Resp B/P (MAP) Pulse Ox O2 Delivery O2 Flow Rate FiO2 07/11/18 12:00 Bi-pap 07/11/18 12:00 3.0 25 07/11/18 10:50 Bi-pap 07/11/18 08:55 97.7 72 18 96/57 (70) 98 07/11/18 08:00 Bi-pap 07/11/18 08:00 4.0 25 07/11/18 08:00 73 07/11/18 07:29 72 20 100 Venturi Mask 3.0 28 07/11/18 07:20 28 07/11/18 07:20 70 20 100 Venturi Mask 3.0 07/11/18 07:20 100 Venturi Mask 3.0 07/11/18 05:12 63 18 100 07/11/18 04:00 30 07/11/18 04:00 97.9 63 18 104/59 (74) 100 07/11/18 04:00 Bi-pap 07/11/18 03:56 62 07/11/18 03:11 63 18 100 Facial 25 07/11/18 01:57 59 18 100 Bi-pap 25 07/11/18 01:47 60 18 99 Facial 25 07/11/18 01:47 62 18 100 Bi-pap 25 07/11/18 01:47 28 07/11/18 00:00 Bi-pap 07/11/18 00:00 98.1 66 16 120/61 (80) 99 07/10/18 23:23 64 07/10/18 20:00 4.0 25 07/10/18 20:00 Bi-pap 07/10/18 20:00 98.1 78 16 113/60 (77) 96 07/10/18 19:35 67 07/10/18 19:22 70 18 100 Venturi Mask 3.0 28 07/10/18 19:12 28 07/10/18 19:12 64 18 100 Venturi Mask 3.0 28 07/10/18 19:12 100 Venturi Mask 3.0 28 07/10/18 16:00 Bi-pap 07/10/18 16:00 69 07/10/18 16:00 4.0 25 07/10/18 16:00 96.6 69 20 112/64 (80) 97 07/10/18 14:00 77 20 100 Venturi Mask 3.0 28 07/10/18 13:52 28 07/10/18 13:50 75 20 97 Venturi Mask 3.0 28 Intake and Output 07/10/18 07/11/18 19:00 07:00 Intake Total 890 ml 1814.0 ml Output Total 475 ml 700 ml Balance 415 ml 1114.0 ml Free Water 275 ml 430 ml IV Total 75 ml 844.0 ml Tube Feeding 540 ml 540 ml Output Urine Total 475 ml 700 ml # Bowel Movements 5 2 Laboratory Tests 07/11/18 05:25: White Blood Count 10.5, Red Blood Count 3.02L, Hemoglobin 8.5L, Hematocrit 28.3L , Mean Corpuscular Volume 94, Mean Corpuscular Hemoglobin 28.3, Mean Corpuscular Hemoglobin Concent 30.2L, Red Cell Distribution Width 21.5H, Platelet Count 79L, Mean Platelet Volume 14.7H, Neutrophils (%) (Auto) , Lymphocytes (%) (Auto) , Monocytes (%) (Auto) , Eosinophils (%) (Auto) , Basophils (%) (Auto) , Differential Total Cells Counted 100, Neutrophils % ( Manual) 70, Lymphocytes % (Manual) 18L, Monocytes % (Manual) 5, Eosinophils % ( Manual) 6H, Basophils % (Manual) 1, Band Neutrophils 0, Platelet Estimate DecreasedL, Platelet Morphology Normal, Hypochromasia 2+, Anisocytosis 3+, Prothrombin Time 16.1H, Prothromb Time International Ratio 1.5H, Sodium Level 144, Potassium Level 3.9, Chloride Level 112H, Carbon Dioxide Level 26, Anion Gap 6, Blood Urea Nitrogen 26H, Creatinine 0.5L, Estimat Glomerular Filtration Rate , Glucose Level 134H, Calcium Level 8.2L Current Medications Medications (Trade) Dose Ordered Sig/Marcel Route PRN Reason Start Time Stop Time Status Last Admin Dose Admin Acetylcysteine (Mucomyst) 200 mg Q6HRT HHN 07/08/18 19:00 08/07/18 18:59 07/11/18 07:20 Albuterol/ Ipratropium (Albuterol/ Ipratropium) 3 ml Q4H PRN HHN Shortness of Breath 07/08/18 15:00 07/13/18 14:59 Albuterol/ Ipratropium (Albuterol/ Ipratropium) 3 ml Q6HRT HHN 07/08/18 19:00 07/13/18 18:59 07/11/18 07:20 Carbidopa/Levodopa (Sinemet 25/250) 1 tab BID@0730,1230 GT 07/09/18 07:30 08/08/18 07:29 07/11/18 06:16 Chlorhexidine Gluconate (Yolanda-Hex 2%) 1 applic DAILY@2000 TOPIC 07/10/18 20:00 08/09/18 19:59 07/10/18 21:23 Dextrose 1,000 ml @ 75 mls/hr [id number] IV 07/08/18 18:30 08/07/18 18:29 07/11/18 00:19 Dextrose (Dextrose 50%) 25 ml Q30M PRN IV Hypoglycemia 07/08/18 12:15 08/07/18 12:14 Dextrose (Dextrose 50%) 50 ml Q30M PRN IV Hypoglycemia 07/08/18 12:15 08/07/18 12:14 Diphenhydramine HCl (Benadryl) 25 mg Q6H PRN GT Itching 07/08/18 12:15 08/07/18 12:14 Docusate Sodium (Colace) 100 mg TIDPRN PRN GT Constipation 07/08/18 12:15 08/07/18 12:14 EZETIMIBE (Zetia) 10 mg BEDTIME GT 07/08/18 21:00 08/07/18 20:59 07/10/18 21:23 Famotidine (Pepcid) 20 mg DAILY GT 07/09/18 09:00 08/08/18 08:59 07/11/18 08:09 Levothyroxine Sodium (Synthroid) 112 mcg DAILY@0630 GT 07/09/18 06:30 08/08/18 06:29 07/11/18 06:15 Piperacillin Sod/ Tazobactam Sod 3.375 gm/Sodium Chloride 110 ml @ 27.5 mls/hr EVERY 8 HOURS IVPB 07/08/18 14:00 07/13/18 13:59 07/11/18 06:17 Ropinirole HCl (Requip) 1 mg BID@0730,1230 GT 07/09/18 07:30 08/08/18 07:29 07/11/18 06:16 Tramadol HCl (Ultram) 25 mg Q6H PRN GT For Pain 07/08/18 12:32 07/15/18 12:31 Vitamin D (Vitamin D) 1,000 intlu EVERY 8 HOURS GT 07/08/18 14:00 08/07/18 12:59 07/11/18 06:15 Warfarin Sodium (Coumadin per pharmacy) 1 ea DAILY PRN MISC Per RX Protocol 07/09/18 09:00 08/08/18 08:59 Warfarin Sodium (Coumadin) 3 mg COUMADIN ORAL 07/11/18 17:00 07/11/18 18:00 Kevyn Caraballo MD Jul 11, 2018 12:19
--- NOTE | 2018-07-11 13:05 | NUR ---
NURSE NOTES: Patient discharged back to [facility] per Dr. Mclaughlin's orders. Discharge instructions given via telephone report to ALIZE Silva at SNF, also to family at bedside, verbalized understanding. Peripheral IVs discontinued, right upper arm PICC left in place per Dr. Mclaughlin's orders. ID band removed and placed in shredder. Heart monitor removed and returned to solar energy technician. Patient left with new Joyner catheter per Dr. Mclaughlin's orders. Patient left via ambulance accompanied by two draw furnace tender and daughter with all belongings, in stable condition.
[2018-07-11] MEDS ORDERED: NS 275ml ONE (13:19)
[2018-07-11] MEDS ORDERED: Warfarin Sodium 3mg ORAL SCH (17:00)
--- NOTE | 2018-07-12 13:48 | Discharge Summary ---
Discharge Summary Discharge Summary _ DATE OF ADMISSION: 2018 DATE OF DISCHARGE: 07/11/2018 DISCHARGED BY: Dr. Mclaughlin REASON FOR ADMISSION: 88 years old female with past medical history of COPD, CVA, hypothyroidism, hypertension, DVT, PE, GERD, dementia, severe or sacral osteomyelitis wound status post debridement and IV antibiotics, DNR/DNI status , presented to emergency department with respiratory distress and hypoxia. Leukocytosis WBC 15, hemoglobin 10.4 , hematocrit 36.1. ABG revealed evidence of respiratory acidosis with hypercapnia PCO2 66.6. Sodium 160. BUN 45, creatinine 0.6. Glucose 132. Lactic acid 1.2. Troponin - 0.044. Pro BNP 2628. AST 57 albumin 1.8. TSH low 0.0 98. Urinalysis revealed pyuria and few bacteria. Chest x-ray demonstrated atelectasis versus consolidation in the right upper lobe. Patient was placed on BiPAP and subsequently admitted to direct observational unit for further management. CONSULTANTS: pulmonary ID specialist Dr. Curry surgery Dr. Lott [facility] COURSE: Patient admitted to direct observational unit. Mental Health Case Manager followed. Patient initially was on the BiPAP. ABG was closely monitored. Pulmonary hygiene and nebulizing treatment with bronchodilator implemented as tolerated [id number] and as neede Chest physiotherapy initiated along with bronchodilator therapy. Mucomyst inhalation provided [id number]. Strict aspiration precaution maintained. Tube feedings restarted , once respiratory status became more stable. Patient started on empiric antibiotic for healthcare associated pneumonia and sacral osteomyelitis as per ID specialist recommendation. Volumes and cardiorenal parameters were closely monitored. Cautious intravenous hydration provided with close monitoring of renal parameters and electrolytes. Electrolytes corrected as needed. Nephrotoxins were avoided. Patient was on anticoagulation with warfarin for DVT and PE per pharmacy dosing to keep INR in therapeutic range. GI prophylaxis provided Infectious disease specialist followed. Patient started on empiric Zosyn. Initial blood culture revealed 1 out of 2 Staph capitis, likely contamination. Urine culture revealed Farhana. Leukocytosis resolved, patient had no fever. Leukocytosis resolved, patient afebrile. For sacral osteomyelitis patient will need to continue Zosyn for planned 8 weeks of the course. Surgeon seen and evaluated patient for a sacral osteomyelitis. Wound care provided as per surgeon recommendation. Protein supplements implemented in plan of care as per registered respiratory technician recommendation. Patient clinically stabilized. Patient with DNR/DNI status. Leukocytosis resolved, no fevers. Sodium down to 145. BUN from 45 down to 26. Creatinine remains stable. Patient was ready for transfer to longterm facility for continuation of care. FINAL DIAGNOSES: Acute on chronic hypercapnic respiratory failure -improved Healthcare associated pneumonia with right upper lobe infiltrate and collapse Sacral osteomyelitis Acute kidney injury with hypernatremia -resolved DVT, PE Advanced dementia Dysphagia , G-tube feeding History of CVA/TIA Hypertension Hypothyroidism GERD Hyperlipidemia Hypoalbuminemia DISCHARGE MEDICATIONS: See Medication Reconciliation list. DISCHARGE INSTRUCTIONS: Patient was discharged to the longterm facility. Follow up with medical doctor at the facility. I have been assigned to dictate discharge summary for this account. I was not involved in the patient's management. Majo Padilla NP Jul 12, 2018 13:48
== END 2018-07-11 13:20 | DRG 189 ==
LOC: EDBD 07:02 → EMR 07:30 → EDBEDREQ 09:31 → 2W 09:45
PROC: 5A09457 Assistance with Respiratory Ventilation, 24-96 Consecutive Hours, Continuous Positive Airway Pressure (ICD-10-PCS; principal; 2018-07-08)
DX: J96.22 Acute and chronic respiratory failure with hypercapnia (principal); J18.1 Lobar pneumonia, unspecified organism; E43 Unspecified severe protein-calorie malnutrition; N39.0 Urinary tract infection, site not specified; M86.8X8 Other osteomyelitis, other site; I50.32 Chronic diastolic (congestive) heart failure; N17.9 Acute kidney failure, unspecified; E87.0 Hyperosmolality and hypernatremia; Z68.1 Body mass index [BMI] 19.9 or less, adult; E86.0 Dehydration; E88.09 Other disorders of plasma-protein metabolism, not elsewhere classified; I69.391 Dysphagia following cerebral infarction; R13.10 Dysphagia, unspecified; E78.5 Hyperlipidemia, unspecified; Z66 Do not resuscitate; Z93.1 Gastrostomy status; K21.9 Gastro-esophageal reflux disease without esophagitis; E03.9 Hypothyroidism, unspecified; D72.829 Elevated white blood cell count, unspecified; Y95 Nosocomial condition; J44.9 Chronic obstructive pulmonary disease, unspecified; Z74.01 Bed confinement status; K44.9 Diaphragmatic hernia without obstruction or gangrene; I10 Essential (primary) hypertension; I11.0 Hypertensive heart disease with heart failure; Z86.711 Personal history of pulmonary embolism; Z86.718 Personal history of other venous thrombosis and embolism; Z79.01 Long term (current) use of anticoagulants
CPT/HCPCS: 36415; 36600; 71045; 80048; 80053; 81003; 82550; 82553; 82803; 83605; 83880; 84295; 84443; 84484; 85007; 85025; 85610; 87040; 87081; 87086; 87181; 94640; 94660; 96374; 99285; J7620

== ENCOUNTER 2018-08-23 03:42 | Inpatient (IN) | payer MEDICARE, BC ==
[~2018-08-23] VITALS: Ht 165.1 cm; Wt 61.2 kg
[~2018-08-23 03:42] MED LIST changes: +ACETAMINOP160 MG/5 M GT; +ACETAMINOP160 MG/5 M ORAL; +BENADRYL A12.5 MG/5 GT; +COLACE100 MG/10 GT; +FAMOTIDINE20 MG GT; +FERROUS SU220 MG/53 GT; +FUROSEMIDE20 M1 GT; +MILK OF MA400 MG/51 GT; +MIRALAX17 G2 GT; -Solu-MEDROL 125mg Inj IVP ONE; +TRAMADOL HCL50 MG GT; +VITAMIN D1000 UNI1 GT; +WARFARIN SODIUM4 MG ORAL; +ZINC SULFATE220 M1 GT
--- NOTE | 2018-08-23 03:48 | NUR ---
ED Nurse Note: Patient was BIBA from [facility] due to resp disstress, per EMT she has high fever x3 days. Pt is AO x 0 not respond to conversation. Temp 101.7F. on C pap 78% O2 Sat. ERMD seen Pt at bedside.
--- NOTE | 2018-08-23 03:50 | NUR ---
ED Nurse Note: Urine and blood sample sent lab.
--- NOTE | 2018-08-23 03:50 | Emergency Room Report ---
History of Present Illness General Chief Complaint: Dyspnea/Respdistress Source: Medical Record, EMS Present Illness HPI This is an 88-year-old female from retirement. She has a history of COPD, sepsis, pneumonia and severe kyphosis. She presents with respiratory distress. Onset for last 3 days. Fever and cough. Worse tonight. Similar presentation last month when she was admitted. No nausea no vomiting. She was hypoxic per EMS. Also warm to the touch. They put her on oxygen brought her here. Unable to get any other history from this patient because of her condition. Allergies: Coded Allergies: STRAWBERRY (Verified Allergy, Unknown, Rash, 06/29/13) COPIED FROM UNCODED SECTION VALSARTAN (Verified Allergy, Unknown, 03/09/11) Patient History Past Medical History: see triage record, old chart reviewed, COPD, pneumonia Past Surgical History: other Pertinent Family History: none Social History: Denies: smoking Now: No Immunizations: other Reviewed Nursing Documentation: PMH: Agreed; PSxH: Agreed Nursing Documentation-PMH Hx Cardiac Problems: Yes - P.E. Hx Hypertension: Yes Hx COPD: Yes - CHRONIC RESP FAILURE Hx Cancer: No Hx Gastrointestinal Problems: Yes - GASTROSTOMY; GERD Hx Neurological Problems: Yes - PARKINSONS; MUSCLE WEAKNESS Hx Transient Ischemic Attacks: Yes Hx Dementia: Yes Hx Parkinson's Disease: Yes Hx Multiple Sclerosis: Yes Hx Memory Loss: Yes Hx Tremors: Yes Hx Weakness: Yes Review of Systems Constitutional: Reports: fever, weakness Respiratory: Reports: cough, shortness of breath All Other Systems: limited - Secondary to condition Physical Exam Vitals with fever and hypoxia Sp02 EP Interpretation: abnormal General Appearance: moderate distress, other - Severely kyphotic Head: normocephalic, atraumatic Eyes: bilateral eye PERRL, bilateral eye EOMI ENT: hearing grossly normal, normal pharynx Neck: full range of motion, supple, no meningismus Respiratory: respiratory distress, decreased breath sounds, accessory muscle use, rhonchi Cardiovascular #1: regular rate, rhythm, no murmur Gastrointestinal: normal bowel sounds, non tender, no mass, no organomegaly, no bruit, non-distended, other - G-Tube Genitourinary: other - Prolapse uterus Musculoskeletal: other - contracted. PICC line rt arm Psychiatric: mood/affect normal Procedures Critical Care Time Critical Care Time Critical care is mandated in this patient who presented with severe sepsis and respiratory distress. Patient require my urgent intervention to attenuate the risks of metabolic collapse which may lead to cardiovascular collapse and . Critical care time is 35 minutes excluding any reportable procedure. Critical care time included evaluation, multiple reevaluation, looking at old charts, interpreting laboratory and diagnostic data, discussing case with patient and family and consultants, and charting. Medical Decision Making Diagnostic Impression: Primary Impression: Severe sepsis Additional Impressions: HCAP (healthcare-associated pneumonia) UTI (urinary tract infection) Qualified Codes: N30.00 - Acute cystitis without hematuria Respiratory failure, acute and chronic Qualified Codes: J96.21 - Acute and chronic respiratory failure with hypoxia Dehydration STEPHY (acute kidney injury) Decubitus ulcer of sacral region, stage 4 ER Course Patient presents with sepsis secondary to pneumonia and UTI. Antibiotics given. IV fluid given. She is more awake and alert after IV fluid. She is also severely dehydrated. I confirm with her daughter that she is a DNR. I contacted Dr. Mclaughlin for admission. Sepsis reevaluation Vital signs: Please see nursing note GEN: More awake responsive HEENT: Dry Lungs: Better air movement Cadio: improve heart rate Abdomen: Soft Extremity: No edema Skin: No mottling EKG Diagnostic Results Rate: normal Rhythm: NSR ST Segments: no acute changes Rhythm Strip Diag. Results EP Interpretation: yes Rate: 74 Rhythm: NSR, no PVC's, no ectopy Chest X-Ray Diagnostic Results Chest X-Ray Diagnostic Results : Chest X-Ray Ordered: Yes # of Views/Limited/Complete: 1 View Indication: Shortness of Breath EP Interpretation: Yes Interpretation: no pneumothorax, other - Rotated. Bilateral effusion versus infiltrates Impression: Other - b/l infiltrates Electronically Signed by: Farzad Brock MD Status: improved Disposition: ADMITTED INPATIENT Condition: Serious Farzad Brock MD Aug 23, 2018 03:50
--- NOTE | 2018-08-23 03:55 | NUR ---
ED Nurse Note: Breathing treatment and C pap at bedside via RT.
[2018-08-23] MEDS ORDERED: Albuterol ud Inhalation HHN ONE (04:00)
[2018-08-23] MEDS ORDERED: Cefepime HCl 1 GM in D5W 55 ML IVPB ONE (04:00)
[2018-08-23] MEDS ORDERED: Acetaminophen 500mg (ES) tab ORAL ONE (04:00)
[2018-08-23] MEDS ORDERED: Vancomycin 1 GM in NS 275 ML IVPB ONE (04:00)
[2018-08-23 04:05] LABS: APPEARANCE,URINE SLIGHTLY CLOUDY; BILIRUBIN, URINE NEGATIVE (NEGATIVE); COLOR,URINE PALE YELLOW; GLUCOSE, URINE (UA) NEGATIVE (NEGATIVE); KETONES,URINE NEGATIVE (NEGATIVE); LEUKOCYTE ESTERASE ,URINE 3+ (NEGATIVE); NITRITE,URINE NEGATIVE (NEGATIVE); PH,URINE 6 (4.5-8.0); PROTEIN,URINE 2+ (NEGATIVE); UROBILINOGEN,URINE NORMAL MG/DL (0.0-1.0)
[2018-08-23 04:19] LABS: HEMATOCRIT 32.4 % (37.0-47.0); HEMOGLOBIN 9.6 G/DL (12.0-16.0); MEAN CORPUSCULAR VOLUME 89 FL (80-99); PLATELET COUNT 279 K/UL (150-450); RED BLOOD COUNT 3.63 M/UL (4.20-5.40); RED CELL DISTRIBUTION WIDTH 17.7 % (11.6-14.8)
[2018-08-23 04:24] LABS: WHITE BLOOD COUNT 32.7 K/UL (4.8-10.8)
[2018-08-23 04:34] LABS: ALANINE AMINOTRANSFERASE 81 U/L (12-78); ALBUMIN 2.1 G/DL (3.4-5.0); ALBUMIN/GLOBULIN RATIO 0.4 (1.0-2.7); ALKALINE PHOSPHATASE 134 U/L (46-116); ANION GAP 2 mmol/L (5-15); ASPARTATE AMINO TRANSFERASE 58 U/L (15-37); BILIRUBIN,TOTAL 0.3 MG/DL (0.2-1.0); BLOOD UREA NITROGEN 100 mg/dL (7-18); CALCIUM 9.4 MG/DL (8.5-10.1); CARBON DIOXIDE 38 MMOL/L (21-32); CHLORIDE 123 MMOL/L (98-107); CKMB < 0.5 NG/ML (0.0-3.6); CREATINE KINASE 28 U/L (26-308); CREATININE 1.1 MG/DL (0.55-1.30); POTASSIUM 4.7 MMOL/L (3.5-5.1)
[2018-08-23] MEDS ORDERED: FUROSEMIDE20 M1 ORAL (04:35)
[2018-08-23] MEDS ORDERED: SINEMET CR 25/101 EA ORAL (04:35)
[2018-08-23 04:39] LABS: SODIUM 163 MMOL/L (136-145)
[2018-08-23 05:13] VITALS: BP 123/65
--- NOTE | 2018-08-23 05:44 | NUR ---
ED Nurse Note: Report given to ALIZE Torres. Pt has no belongings, family is on bedside. VSS, on Bi Pap 100% O2Sat, Temp 99F.
--- NOTE | 2018-08-23 06:30 | NUR ---
NURSE NOTES: admit fr er dx sepsis ,pna,uti, nan verbal upper extremities no c/o pain reposition on b-pap20/10 100 o/o o2 sat 97 o/o
[2018-08-23 06:40] VITALS: BP 120/61
--- NOTE | 2018-08-23 07:30 | NUR ---
NURSE NOTES: Received pt from ALIZE Lowe in stable condition with no cardiopulmonary distress noted. Pt is asleep in bed on Bipap 20/10 FiO2 100%. Family member at bedside (Chelly). GT noted clamped. Skin alteration noted, pt is wearing bilat heel protector- boots brought in from [facility]. Pt has MELISSA single lumen PICC inserted 06/06/18 per Chelly. F/C noted draining yellow urine. Bed is in lowest position with alarm on, side rails up x 2, call light within reach. Will continue to monitor pt.
--- NOTE | 2018-08-23 07:52 | NUR ---
HAND-OFF: Report given to parul lucia using sbar.
[2018-08-23 08:00] VITALS: BP 123/78
--- NOTE | 2018-08-23 08:45 | NUR ---
RESPIRATORY NOTE: Received pt on ordered BiPAP settings. Pt airway is patent and secured. No resp distress noted. Mask adjusted to offset pressure. Vent alarms are on and audible. Vent is plugged into red outlet. Will monitor pt progress.
[2018-08-23] MEDS ORDERED: Heparin1,000 units/500ml Premix(Conc:2 units/ml) IV PRN (09:00)
[2018-08-23] MEDS ORDERED: Lidocaine 1% Plain 30 ml INJ PRN (09:03)
[2018-08-23] MEDS: Zinc Sulfate 220mg cap GT SCH (09:10)
[2018-08-23 09:12] LABS: INR 2.5 (0.9-1.1)
[2018-08-23] MEDS ORDERED: Warfarin Sodium 5mg GT SCH (10:00)
--- NOTE | 2018-08-23 10:30 | History and Physical Report ---
DATE OF ADMISSION: 08/23/2018 REASON FOR ADMISSION: 1. Sepsis. 2. Volume depletion. HISTORY OF PRESENT ILLNESS: The patient is an 88-year-old female sent from [facility] for evaluation of dyspnea and episodes of fever. At the outside facility, the patient had gram-negative bacilli in blood and had been initiated on fluoroquinolone. Overnight, the patient became short of breath and her oxygen levels had desaturated as such. She was sent to the emergency room for further evaluation, found to have a serum sodium of 163, possible pneumonia, and UTI. The patient has a long complicated course and has had many recent admissions. ALLERGIES: Strawberries and valsartan. PAST MEDICAL HISTORY: 1. COPD. 2. Pneumonia. 3. DVT. 4. Malnutrition. 5. Dehydration. 6. UTI. 7. Dementia. 8. Respiratory failure. SOCIAL HISTORY: No tobacco, alcohol, or illicit drug use. PAST SURGICAL HISTORY: Status post G-tube placement. FAMILY HISTORY: Positive for hypertension. REVIEW OF SYSTEMS: Cannot obtain as this patient is currently on facial BiPAP. LABORATORY DATA: Laboratories dated August 23, 2018, sodium 163, creatinine 1.1, potassium 4.7. White cell count 32.7, hemoglobin 9.6, and platelet count 279. PHYSICAL EXAMINATION: VITAL SIGNS: Blood pressure 120/61, respiratory rate 25, pulse 68, temperature 97.9, on facial BiPAP. HEENT: Extraocular muscles intact. No lymphadenopathy noted. CARDIOVASCULAR: S1, S2. No rubs or gallops. PULMONARY: Mild upper rhonchi with basilar rales. ABDOMEN: Nondistended and nontender. EXTREMITIES: Trace edema bilaterally. ASSESSMENT AND PLAN: 1. Sepsis secondary to possible pneumonia, UTI, also has gram-negative bacilli. Antibiotics have been initiated. Infectious Disease has been consulted. The patient will need PICC line and Joyner catheter replaced. 2. Hypertension. Blood pressure currently stable. 3. Dehydration with elevated serum sodium. We will continue free fluid. 4. Hypernatremia. Sodium 163. We will initiate tube feeds along with D5W free water. 5. Dementia. The patient on Sinemet. 6. Respiratory failure. Continue BiPAP and consult Pulmonary. 7. DVT prophylaxis. The patient is already on Coumadin for previous DVT. Jeremiah Mclaughlin MD DR: MARS JOB#: [id number] CC:
[2018-08-23 12:00] VITALS: BP 107/51
--- NOTE | 2018-08-23 12:20 | NUR ---
NURSE NOTES:WOUND CARE NOTES:Pt presented on admission with multiple pressure injuries.Scattered areas of non-blanchable erythema noted to R earlobe. L earlobe is pink and blanchable. #2 areas of non-blanching erythema noted to L scapula(proximal)-(L)2cm x (W)2.5cm,(Distal)-(L)1cm x(W)0.6cm. Non-blanchable erythema noted to L thoracic(L)1.5cm x (W)2cm. Cat 3 skin tear with 100% flap loss noted to Medial L antecubital (L)0.6cm x (W)0.5cm. Full thickness sacral pressure injury with undermining noted (L)7cm x (W)7.5cm x(D)0.5cm ,undermining clockwise 12-12 by 5.2cm @12o'clock. [place] granulation at base of wound .Loose edges ,(+) epibole noted. Periwound is indurated with additional skin breakdown noted periwound -Clockwise at 6o'clock an area of soft necrosis that is partially opened but dry noted (L)3.5cm x (W)1.8cm , an area that is fluctuant and maroon in colour noted at 5o'clock (L)2.5cm x (W)2cm.DTR at bedside and was informed likelihood of these two areas becoming open wounds secondary to already compromised skin from sacral wound and that that these areas are over undermined areas of sacral wound..Both ischial areas are pink and blanchable. Pt noted to have developed erythema to L scapula and L hip and L trochanter within few minutes of being on L side for staff to assess wounds. Dtr also educated pt is at high risks secondary to poor tissue perfusion and comorbidities. Pt noted to be wearing soft heel raiser boots .Upon removal of heel raiser boots pt noted to have DTPI's to R and L posterior tibias.L tibia has an elongated area that is maroon in colour and base of wound is indurated(L)11.5cm x (W)2cm. R tibia DTPI. Base of wound is maroon and indurated (L)1.2cm x (W)0.5cm. scattered areas of non-blanching erythema periwound Dtr informed it was in best interest of pt to discontinue heel raiser boots and have both lower ext off-loaded with pillows with heels floated. Dtr agreed with staff. R heel and plantar R heel fluctuant and maroon in colour (L)4.5cm x (W)7.5cm. L heel fluctuant but blanchable. cavilon Skin Barrier applied with Optifoam drsgs to all bony prominences such as both clavicles,both scapulae,bilat elbows ,both trochanter/ hips, and kyphosis to minimize skin breakdown. Dtr informed pt will be transferred to an Air fluidized mattress pending delivery today.Pt positioned with pillows. Tx.Plan: Cleanse Sacral wound with Saline.Apply Hydrogel. Layer Calcium Alginate sheet with attention to undermined borders of wound. Apply Triad paste periwound. Cover with Optifoam drsg Daily and prn. Apply Cavilon Skin Barrier to bony prominences. Cover each area with Optifoam drsgs. Change every 7 days and PRN. Apply Cavilon Skin Barrier to R and L tibia. Cover each wound with Optifoam drsgs. Change every 7 days and prn. Apply Cavilon Skin Barrier to R heel DTPI. Cover with Optifoam drsg. Change every 7 days and PRN. Clean skin tear medial L antecubital. (leave Versatel in place)Apply Silvasorb gel. Cover with Optifoam drsg every 7 days and prn. Air Fluidized mattress. Reposition at least every 2hours or as tolerated. Place pillow between knees .Off-load heels with pillows.
--- NOTE | 2018-08-23 12:30 | Consultation ---
History of Present Illness General Date patient seen: Aug 23, 2018 Chief Complaint: Dyspnea/Respdistress Present Illness HPI 88 y/o F with hx of COPD, PNA, Dementia, PE/DVT, GERD, s/p GT, Parkinson's disease, TIA, severe kyphosis, [facility] resident presents to ED on 08/23 with 3 days of worsening respiratory distress, fever and cough. Reported that patient has gram negative Bacillin in blood at outside facility and was started on fluoroquinolone. Upon admission, patient was found to have Na 163. Denied nausea, vomiting Allergies: Coded Allergies: STRAWBERRY (Verified Allergy, Unknown, Rash, 06/29/13) COPIED FROM UNCODED SECTION VALSARTAN (Verified Allergy, Unknown, 03/09/11) Medication History Scheduled Amlodipine Besylate* (Amlodipine Besylate*), 2.5 MG ORAL DAILY, (Reported) Calcium Carbonate (Calcium), 1,000 MG GT BID, (Reported) Carbidopa/Levodopa* (Sinemet 25-250 Mg Tablet*), 1 TAB GT BID, (Reported) Cholecalciferol (Vitamin D3)* (Vitamin D*), 1,000 UNIT GT TID, (Reported) Dextran 70/Hypromellose (Artificial Tears Eye Drops*), 1 DROP BOTH EYES QID, ( Reported) Ezetimibe (Zetia*), 10 MG GT BEDTIME, (Reported) Famotidine (Famotidine), 20 MG GT DAILY, (Reported) Ferrous Sulfate (Ferrous Sulfate), 6.8 ML GT DAILY, (Reported) Furosemide* (Lasix*), 20 MG ORAL DAILY, (Reported) Lactobacillus Rhamnosus Gg (Culturelle), 1 EACH GT BID, (Reported) Levodopa/Carbidopa (Carbidopa-Levo ER 25-100 Tab), 1 TAB ORAL TWICE A DAY, ( Reported) Levothyroxine Sodium* (Synthroid*), 112 MCG GT DAILY, (Reported) Multivitamins* (Multivitamins*), 1 TAB ORAL DAILY, (Reported) Ropinirole Hcl* (Ropinirole Hcl*), 1 MG GT BID, (Reported) Simvastatin (Zocor), 20 MG GT BEDTIME, (Reported) Warfarin Sod* (Warfarin Sod*), 4 MG ORAL DAILY, (Reported) Zinc Sulfate (Zinc Sulfate*), 220 MG GT DAILY, (Reported) Scheduled PRN Acetaminophen 160MG/5ML* (Acetaminophen*), 16 ML GT Q4HR PRN for For Pain Level <=5, (Reported) Diphenhydramine Hcl* (Benadryl Allergy*), 25 MG GT Q6HR PRN for Itching, ( Reported) Docusate Sodium (Docusate Sodium), 100 MG GT DAILY PRN for Constipation, ( Reported) Ipratropium/Albuterol Sulfate (DuoNeb 0.5-3(2.5)mg/3ml), 3 ML HHN Q6HR PRN for Shortness of Breath, (Reported) Magnesium Hydroxide* (Milk Of Magnesia*), 30 ML GT DAILY PRN for DOCUSATE INEFFECTIVE, (Reported) Polyethylene Glycol 3350* (Miralax*), 17 GM GT DAILY PRN for Constipation, ( Reported) Tramadol Hcl* (Ultram*), 25 MG GT DAILY PRN for For Pain, (Reported) Patient History Healthcare decision maker Daughter Resuscitation status Do Not Resuscitate Advanced Directive on File No Patient History Narrative Pmhx: as above Shx: Denies: smoking Fhx: non contributory Review of Systems All Other Systems: negative except mentioned in HPI Physical Exam Physical Exam Narrative HEENT: Extraocular muscles intact. No lymphadenopathy noted. CARDIOVASCULAR: S1, S2. No rubs or gallops. PULMONARY: Mild upper rhonchi with basilar rales. ABDOMEN: Nondistended and nontender. EXTREMITIES: Trace edema bilaterally. Last 24 Hour Vital Signs Date Time Temp Pulse Resp B/P (MAP) Pulse Ox O2 Delivery O2 Flow Rate FiO2 08/23/18 12:00 97.7 66 23 107/51 (69) 99 08/23/18 08:45 71 20 98 Facial 30 08/23/18 08:00 30.0 08/23/18 08:00 98.1 70 24 123/78 (93) 97 08/23/18 07:47 68 25 98 Facial 30 08/23/18 07:34 64 08/23/18 06:40 97.9 69 22 120/61 (80) 08/23/18 05:50 99.0 71 15 123/65 100 Bi-pap 30 08/23/18 05:13 99.0 71 15 123/65 100 Bi-pap 30 08/23/18 05:13 71 15 Bi-pap 30 08/23/18 05:05 80 20 99 Facial 30 08/23/18 04:36 99.0 08/23/18 04:20 80 20 100 Bi-Pap 30 08/23/18 04:05 86 25 99 Bi-Pap 30 08/23/18 04:05 86 25 99 Bi-Pap 30 08/23/18 04:05 30 08/23/18 03:55 86 25 99 Facial 30 08/23/18 03:43 100.2 89 24 130/72 (91) 78 Bi-pap Intake and Output 08/22/18 08/23/18 19:00 07:00 Intake Total 100 ml Output Total 100 ml Balance 0 ml Intake Oral 0 ml Free Water 100 ml Output Urine Total 100 ml Laboratory Tests Test 08/23/18 03:50 08/23/18 04:00 08/23/18 08:25 White Blood Count 32.7 K/UL (4.8-10.8) *H Red Blood Count 3.63 M/UL (4.20-5.40) L Hemoglobin 9.6 G/DL (12.0-16.0) L Hematocrit 32.4 % (37.0-47.0) L Mean Corpuscular Volume 89 FL (80-99) Mean Corpuscular Hemoglobin 26.6 PG (27.0-31.0) L Mean Corpuscular Hemoglobin Concent 29.8 G/DL (32.0-36.0) L Red Cell Distribution Width 17.7 % (11.6-14.8) H Platelet Count 279 K/UL (150-450) Mean Platelet Volume 11.1 FL (6.5-10.1) H Neutrophils (%) (Auto) % (45.0-75.0) Lymphocytes (%) (Auto) % (20.0-45.0) Monocytes (%) (Auto) % (1.0-10.0) Eosinophils (%) (Auto) % (0.0-3.0) Basophils (%) (Auto) % (0.0-2.0) Differential Total Cells Counted 100 Neutrophils % (Manual) 83 % (45-75) H Lymphocytes % (Manual) 12 % (20-45) L Monocytes % (Manual) 5 % (1-10) Eosinophils % (Manual) 0 % (0-3) Basophils % (Manual) 0 % (0-2) Band Neutrophils 0 % (0-8) Platelet Estimate Adequate Platelet Morphology Normal Red Blood Cell Morphology Normal Sodium Level 163 MMOL/L (136-145) *H Potassium Level 4.7 MMOL/L (3.5-5.1) Chloride Level 123 MMOL/L (98-107) H Carbon Dioxide Level 38 MMOL/L (21-32) H Anion Gap 2 mmol/L (5-15) L Blood Urea Nitrogen 100 mg/dL (7-18) H Creatinine 1.1 MG/DL (0.55-1.30) Estimat Glomerular Filtration Rate mL/min (>60) Glucose Level 153 MG/DL (74-106) H Lactic Acid Level 1.80 mmol/L (0.4-2.0) Calcium Level 9.4 MG/DL (8.5-10.1) Total Bilirubin 0.3 MG/DL (0.2-1.0) Aspartate Amino Transf (AST/SGOT) 58 U/L (15-37) H Alanine Aminotransferase (ALT/SGPT) 81 U/L (12-78) H Alkaline Phosphatase 134 U/L (46-116) H Total Creatine Kinase 28 U/L (26-308) Creatine Kinase MB < 0.5 NG/ML (0.0-3.6) Creatine Kinase MB Relative Index 1.7 Troponin I 0.077 ng/mL (0.000-0.056) Total Protein 6.9 G/DL (6.4-8.2) Albumin 2.1 G/DL (3.4-5.0) L Globulin 4.8 g/dL Albumin/Globulin Ratio 0.4 (1.0-2.7) L Urine Color Pale yellow Urine Appearance Slightly cloudy Urine pH 6 (4.5-8.0) Urine Specific [place] 1.005 (1.005-1.035) Urine Protein 2+ (NEGATIVE) H Urine Glucose (UA) Negative (NEGATIVE) Urine Ketones Negative (NEGATIVE) Urine Blood 4+ (NEGATIVE) H Urine Nitrite Negative (NEGATIVE) Urine Bilirubin Negative (NEGATIVE) Urine Urobilinogen Normal MG/DL (0.0-1.0) Urine Leukocyte Esterase 3+ (NEGATIVE) H Urine RBC Tntc /HPF (0 - 2) H Urine WBC Tntc /HPF (0 - 2) H Urine Squamous Epithelial Cells Few /LPF (NONE/OCC) Urine Bacteria Many /HPF (NONE) H Prothrombin Time 25.7 SEC (9.30-11.50) H Prothromb Time International Ratio 2.5 (0.9-1.1) H Height (Feet): 5 Height (Inches): 5.00 Weight (Pounds): 135 Medications Current Medications Medications (Trade) Dose Ordered Sig/Marcel Route PRN Reason Start Time Stop Time Status Last Admin Dose Admin Atorvastatin Calcium (Lipitor) 20 mg BEDTIME GT 08/23/18 21:00 09/22/18 20:59 Carbidopa/Levodopa (Sinemet 25/250) 1 tab BID@0730,1230 GT 08/23/18 12:30 09/22/18 12:29 Chlorhexidine Gluconate (Yolanda-Hex 2%) 1 applic DAILY@2000 TOPIC 08/23/18 20:00 09/22/18 19:59 Dextrose 1,000 ml @ 75 mls/hr [id number] IV 08/23/18 08:12 09/22/18 08:11 08/23/18 09:09 Dextrose (Dextrose 50%) 25 ml Q30M PRN IV Hypoglycemia 08/23/18 08:15 09/22/18 08:14 Dextrose (Dextrose 50%) 50 ml Q30M PRN IV Hypoglycemia 08/23/18 08:15 09/22/18 08:14 EZETIMIBE (Zetia) 10 mg BEDTIME GT 08/23/18 21:00 09/22/18 20:59 Heparin Sodium/ Sodium Chloride (Heparin 1000 units/500ml Premix) 1,000 unit ONCE PRN IV PICC 08/23/18 09:00 08/23/18 23:59 Lansoprazole (Prevacid) 30 mg DAILY GT 08/23/18 09:00 09/22/18 08:59 08/23/18 09:09 Levothyroxine Sodium (Synthroid) 112 mcg DAILY@0630 GT 08/24/18 06:30 09/23/18 06:29 Lidocaine HCl (Xylocaine 1% 30ml) 30 ml ONCE PRN INJ PICC 08/23/18 09:03 08/23/18 23:59 Mirtazapine (Remeron) 15 mg DAILY@1800 GT 08/23/18 18:00 09/22/18 17:59 Ropinirole HCl (Requip) 1 mg BID@0730,1230 GT 08/23/18 12:30 09/22/18 12:29 Warfarin Sodium (Coumadin per pharmacy) 1 ea DAILY PRN MISC Per rx protocol 08/23/18 08:15 09/22/18 08:14 Zinc Sulfate (Zinc Sulfate) 220 mg DAILY GT 08/23/18 09:00 09/22/18 08:59 08/23/18 09:10 Assessment/Plan Assessment/Plan: Abx: IV Vancomcycin x1 08/23 Cefepime x1 08/23 Levaquin x1 08/23 Assessment: Sepsis -2ry to likely PNA and UTI -CXR p -u/a wbc tnct, nit neg, leuk +3; ucx p Reported GNR bacteremia (at [facility]) -08/23 BCx p -08/18 Bcx Pseudomonas 9pan S) Low grade fever Leukocytosis Hypernatremia Sacral decubitus Ulcer/OM- -s/p recent 10 weeks of IV zosyn COPD PNA Dementia PE/DVT GERD s/p GT Parkinson's disease TIA severe kyphosis [facility] resident Plan: -Continue IV Vancomycin #1 and start Meropenem (given recent prolonged ZOsyn) pending cultueres -f/u cx -Monitor CBC/CMP, temperatures -f/u CXR -f/u BCx results at [facility] facility -aspiration precautions Thank you for this consultation. Will continue to follow along with you. Discussed with Tasha Appiah M.D. Aug 23, 2018 12:30
[2018-08-23] MEDS: Levodopa/Carbidopa 25/250 tab GT SCH (12:54)
[2018-08-23] MEDS ORDERED: Piperacillin/Tazobactam 3.375 GM in NS 110 ML IVPB SCH (14:00)
--- NOTE | 2018-08-23 14:02 | Diagnostic Imaging Report ---
Indication: Dyspnea Comparison: July 09, 2018 A single view chest radiograph was obtained. Findings: The study is a very limited because of rotation and obscuring structures. There may be mild interstitial edema present within the lungs. Heart is enlarged. The lung bases are obscured. IMPRESSION: Very limited exam. Probable interstitial edema
--- NOTE | 2018-08-23 14:24 | Consultation ---
History of Present Illness General Date patient seen: Aug 23, 2018 Time patient seen: 14:19 Chief Complaint: Dyspnea/Respdistress Reason for Consultation: Acute hypoxemic respiratory failure Present Illness HPI 88 y/o female w/ dementia, COPD, recurrent respiratory failure, dysphagia s/p PEG, recent osteomyelitis brought in from SNF with respiratory distress. Oxygen saturation noted to be at 70%. Placed on BiPAP in ED. Abx given for pneumonia and UTI. Family bedside worried about aspiration of oral secretions. Allergies: Coded Allergies: STRAWBERRY (Verified Allergy, Unknown, Rash, 06/29/13) COPIED FROM UNCODED SECTION VALSARTAN (Verified Allergy, Unknown, 03/09/11) Medication History Scheduled Amlodipine Besylate* (Amlodipine Besylate*), 2.5 MG ORAL DAILY, (Reported) Calcium Carbonate (Calcium), 1,000 MG GT BID, (Reported) Carbidopa/Levodopa* (Sinemet 25-250 Mg Tablet*), 1 TAB GT BID, (Reported) Cholecalciferol (Vitamin D3)* (Vitamin D*), 1,000 UNIT GT TID, (Reported) Dextran 70/Hypromellose (Artificial Tears Eye Drops*), 1 DROP BOTH EYES QID, ( Reported) Ezetimibe (Zetia*), 10 MG GT BEDTIME, (Reported) Famotidine (Famotidine), 20 MG GT DAILY, (Reported) Ferrous Sulfate (Ferrous Sulfate), 6.8 ML GT DAILY, (Reported) Furosemide* (Lasix*), 20 MG ORAL DAILY, (Reported) Lactobacillus Rhamnosus Gg (Culturelle), 1 EACH GT BID, (Reported) Levodopa/Carbidopa (Carbidopa-Levo ER 25-100 Tab), 1 TAB ORAL TWICE A DAY, ( Reported) Levothyroxine Sodium* (Synthroid*), 112 MCG GT DAILY, (Reported) Multivitamins* (Multivitamins*), 1 TAB ORAL DAILY, (Reported) Ropinirole Hcl* (Ropinirole Hcl*), 1 MG GT BID, (Reported) Simvastatin (Zocor), 20 MG GT BEDTIME, (Reported) Warfarin Sod* (Warfarin Sod*), 4 MG ORAL DAILY, (Reported) Zinc Sulfate (Zinc Sulfate*), 220 MG GT DAILY, (Reported) Scheduled PRN Acetaminophen 160MG/5ML* (Acetaminophen*), 16 ML GT Q4HR PRN for For Pain Level <=5, (Reported) Diphenhydramine Hcl* (Benadryl Allergy*), 25 MG GT Q6HR PRN for Itching, ( Reported) Docusate Sodium (Docusate Sodium), 100 MG GT DAILY PRN for Constipation, ( Reported) Ipratropium/Albuterol Sulfate (DuoNeb 0.5-3(2.5)mg/3ml), 3 ML HHN Q6HR PRN for Shortness of Breath, (Reported) Magnesium Hydroxide* (Milk Of Magnesia*), 30 ML GT DAILY PRN for DOCUSATE INEFFECTIVE, (Reported) Polyethylene Glycol 3350* (Miralax*), 17 GM GT DAILY PRN for Constipation, ( Reported) Tramadol Hcl* (Ultram*), 25 MG GT DAILY PRN for For Pain, (Reported) Patient History Limited by: medical condition History Provided By: Family Member, Medical Record Healthcare decision maker Daughter Resuscitation status Do Not Resuscitate Advanced Directive on File No Past Medical/Surgical History Past Medical/Surgical History: (1) CHF (congestive heart failure) (2) Dysphasia (3) Severe malnutrition (4) Respiratory failure, acute and chronic Review of Systems ROS Narrative Unable to obtain due to patient factors Physical Exam General Appearance: other - on bipap, alert HEENT: normocephalic, atraumatic Neck: non-tender Respiratory/Chest: other - Diminished breath sounds bilaterally Cardiovascular/Chest: normal rate, regular rhythm Abdomen: non tender, soft Extremities: no edema, no cyanosis Skin Exam: normal pigmentation Last 24 Hour Vital Signs Date Time Temp Pulse Resp B/P (MAP) Pulse Ox O2 Delivery O2 Flow Rate FiO2 08/23/18 12:52 70 20 99 Facial 30 08/23/18 12:00 97.7 66 23 107/51 (69) 99 08/23/18 12:00 30.0 08/23/18 10:40 69 20 98 Facial 30 08/23/18 08:45 71 20 98 Facial 30 08/23/18 08:00 30.0 08/23/18 08:00 98.1 70 24 123/78 (93) 97 08/23/18 07:47 68 25 98 Facial 30 08/23/18 07:34 64 08/23/18 06:40 97.9 69 22 120/61 (80) 08/23/18 05:50 99.0 71 15 123/65 100 Bi-pap 30 08/23/18 05:13 99.0 71 15 123/65 100 Bi-pap 30 08/23/18 05:13 71 15 Bi-pap 30 08/23/18 05:05 80 20 99 Facial 30 08/23/18 04:36 99.0 08/23/18 04:20 80 20 100 Bi-Pap 30 08/23/18 04:05 86 25 99 Bi-Pap 30 08/23/18 04:05 86 25 99 Bi-Pap 30 08/23/18 04:05 30 08/23/18 03:55 86 25 99 Facial 30 08/23/18 03:43 100.2 89 24 130/72 (91) 78 Bi-pap Intake and Output 08/22/18 08/23/18 19:00 07:00 Intake Total 100 ml Output Total 100 ml Balance 0 ml Intake Oral 0 ml Free Water 100 ml Output Urine Total 100 ml Laboratory Tests Test 08/23/18 03:50 08/23/18 04:00 08/23/18 08:25 White Blood Count 32.7 K/UL (4.8-10.8) *H Red Blood Count 3.63 M/UL (4.20-5.40) L Hemoglobin 9.6 G/DL (12.0-16.0) L Hematocrit 32.4 % (37.0-47.0) L Mean Corpuscular Volume 89 FL (80-99) Mean Corpuscular Hemoglobin 26.6 PG (27.0-31.0) L Mean Corpuscular Hemoglobin Concent 29.8 G/DL (32.0-36.0) L Red Cell Distribution Width 17.7 % (11.6-14.8) H Platelet Count 279 K/UL (150-450) Mean Platelet Volume 11.1 FL (6.5-10.1) H Neutrophils (%) (Auto) % (45.0-75.0) Lymphocytes (%) (Auto) % (20.0-45.0) Monocytes (%) (Auto) % (1.0-10.0) Eosinophils (%) (Auto) % (0.0-3.0) Basophils (%) (Auto) % (0.0-2.0) Differential Total Cells Counted 100 Neutrophils % (Manual) 83 % (45-75) H Lymphocytes % (Manual) 12 % (20-45) L Monocytes % (Manual) 5 % (1-10) Eosinophils % (Manual) 0 % (0-3) Basophils % (Manual) 0 % (0-2) Band Neutrophils 0 % (0-8) Platelet Estimate Adequate Platelet Morphology Normal Red Blood Cell Morphology Normal Sodium Level 163 MMOL/L (136-145) *H Potassium Level 4.7 MMOL/L (3.5-5.1) Chloride Level 123 MMOL/L (98-107) H Carbon Dioxide Level 38 MMOL/L (21-32) H Anion Gap 2 mmol/L (5-15) L Blood Urea Nitrogen 100 mg/dL (7-18) H Creatinine 1.1 MG/DL (0.55-1.30) Estimat Glomerular Filtration Rate mL/min (>60) Glucose Level 153 MG/DL (74-106) H Lactic Acid Level 1.80 mmol/L (0.4-2.0) Calcium Level 9.4 MG/DL (8.5-10.1) Total Bilirubin 0.3 MG/DL (0.2-1.0) Aspartate Amino Transf (AST/SGOT) 58 U/L (15-37) H Alanine Aminotransferase (ALT/SGPT) 81 U/L (12-78) H Alkaline Phosphatase 134 U/L (46-116) H Total Creatine Kinase 28 U/L (26-308) Creatine Kinase MB < 0.5 NG/ML (0.0-3.6) Creatine Kinase MB Relative Index 1.7 Troponin I 0.077 ng/mL (0.000-0.056) Total Protein 6.9 G/DL (6.4-8.2) Albumin 2.1 G/DL (3.4-5.0) L Globulin 4.8 g/dL Albumin/Globulin Ratio 0.4 (1.0-2.7) L Urine Color Pale yellow Urine Appearance Slightly cloudy Urine pH 6 (4.5-8.0) Urine Specific [place] 1.005 (1.005-1.035) Urine Protein 2+ (NEGATIVE) H Urine Glucose (UA) Negative (NEGATIVE) Urine Ketones Negative (NEGATIVE) Urine Blood 4+ (NEGATIVE) H Urine Nitrite Negative (NEGATIVE) Urine Bilirubin Negative (NEGATIVE) Urine Urobilinogen Normal MG/DL (0.0-1.0) Urine Leukocyte Esterase 3+ (NEGATIVE) H Urine RBC Tntc /HPF (0 - 2) H Urine WBC Tntc /HPF (0 - 2) H Urine Squamous Epithelial Cells Few /LPF (NONE/OCC) Urine Bacteria Many /HPF (NONE) H Prothrombin Time 25.7 SEC (9.30-11.50) H Prothromb Time International Ratio 2.5 (0.9-1.1) H Height (Feet): 5 Height (Inches): 5.00 Weight (Pounds): 135 Medications Current Medications Medications (Trade) Dose Ordered Sig/Marcel Route PRN Reason Start Time Stop Time Status Last Admin Dose Admin Atorvastatin Calcium (Lipitor) 20 mg BEDTIME GT 08/23/18 21:00 09/22/18 20:59 Carbidopa/Levodopa (Sinemet 25/250) 1 tab BID@0730,1230 GT 08/23/18 12:30 09/22/18 12:29 08/23/18 12:54 Chlorhexidine Gluconate (Yolanda-Hex 2%) 1 applic DAILY@2000 TOPIC 08/23/18 20:00 09/22/18 19:59 Dextrose 1,000 ml @ 75 mls/hr [id number] IV 08/23/18 08:12 09/22/18 08:11 08/23/18 09:09 Dextrose (Dextrose 50%) 25 ml Q30M PRN IV Hypoglycemia 08/23/18 08:15 09/22/18 08:14 Dextrose (Dextrose 50%) 50 ml Q30M PRN IV Hypoglycemia 08/23/18 08:15 09/22/18 08:14 EZETIMIBE (Zetia) 10 mg BEDTIME GT 08/23/18 21:00 09/22/18 20:59 Heparin Sodium/ Sodium Chloride (Heparin 1000 units/500ml Premix) 1,000 unit ONCE PRN IV PICC 08/23/18 09:00 08/23/18 23:59 Lansoprazole (Prevacid) 30 mg DAILY GT 08/23/18 09:00 09/22/18 08:59 08/23/18 09:09 Levothyroxine Sodium (Synthroid) 112 mcg DAILY@0630 GT 08/24/18 06:30 09/23/18 06:29 Lidocaine HCl (Xylocaine 1% 30ml) 30 ml ONCE PRN INJ PICC 08/23/18 09:03 08/23/18 23:59 Mirtazapine (Remeron) 15 mg DAILY@1800 GT 08/23/18 18:00 09/22/18 17:59 Piperacillin Sod/ Tazobactam Sod 3.375 gm/Sodium Chloride 110 ml @ 27.5 mls/hr EVERY 8 HOURS IVPB 08/23/18 14:00 08/28/18 13:59 Ropinirole HCl (Requip) 1 mg BID@0730,1230 GT 08/23/18 12:30 09/22/18 12:29 08/23/18 12:54 Vancomycin HCl (Vanco rx to dose) 1 ea DAILY PRN MISC Per rx protocol 08/23/18 12:30 09/22/18 12:29 Vancomycin HCl 750 mg/Sodium Chloride 275 ml @ 183.333 mls/hr Q24H IVPB 08/24/18 04:00 08/29/18 03:59 Warfarin Sodium (Coumadin per pharmacy) 1 ea DAILY PRN MISC Per rx protocol 08/23/18 08:15 09/22/18 08:14 Zinc Sulfate (Zinc Sulfate) 220 mg DAILY GT 08/23/18 09:00 09/22/18 08:59 08/23/18 09:10 Assessment/Plan Assessment/Plan: Problem List: 1. Acute hypoxemic respiratory failure 2. Pneumonia 3. UTI 4. Sepsis 5. Dementia 6. hx osteomyelitis 7. Dysphagia s/p PEG Plan: -ABG stat -BiPAP 20/10 settings from ED, will adjust and wean off as necessary -duonebs -abx per ID -f/u cultures -cont tube feeds Bonilla Lovett MD Aug 23, 2018 14:24
--- NOTE | 2018-08-23 14:28 | NUR ---
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 RESPIRATORY DISTRESS SI:SEVERE SEPSIS . HCAP VS: BP 130/72, P 89, T 100.2, RR 24, SpO2 78 on Bi-pap WBC 32.7, RBC 3.63, H&H 9.6/32.4, Na 163, K 4.7, CL 123, BUN 100, TROP I 0.077 CXR: Very limited exam. Probable interstitial edema. IS:PROVENTIL 5mg HHN VANCOMYCIN 275ml IVPB LEVOFLOXACIN 100ml IVPB CEFEPIME 55ml IVPB TYLENOL 1,000mg NS x 1.2L IVLG ADMITTED TO SDU DCP: RETURN TO [facility]
[2018-08-23] MEDS ORDERED: Tubing IV Secondary IV ONE (15:37)
[2018-08-23 16:00] VITALS: BP 94/53
--- NOTE | 2018-08-23 16:00 | NUR ---
Pt placed on overlay mattress.
--- NOTE | 2018-08-23 16:04 | Consultation ---
History of Present Illness General Date patient seen: Aug 23, 2018 Reason for Hospitalization: Dyspnea/Respdistress Present Illness HPI This is a 88-year-old female [facility] resident who was sent to the hospital for evaluation of fever and shortness of breath. Upon admission patient was identified to have a leukocytosis abnormal electrolytes and multiple wounds requiring care and management. Surgery called to evaluate and assist with care. Patient seen, patient [place], chart reviewed. Family at the bedside who know about these wounds and identify they have been being cared for. Family provides mood majority of the history and the review of systems as they keep very close contact with the patient. Allergies: Coded Allergies: STRAWBERRY (Verified Allergy, Unknown, Rash, 06/29/13) COPIED FROM UNCODED SECTION VALSARTAN (Verified Allergy, Unknown, 03/09/11) Medication History Scheduled Amlodipine Besylate* (Amlodipine Besylate*), 2.5 MG ORAL DAILY, (Reported) Calcium Carbonate (Calcium), 1,000 MG GT BID, (Reported) Carbidopa/Levodopa* (Sinemet 25-250 Mg Tablet*), 1 TAB GT BID, (Reported) Cholecalciferol (Vitamin D3)* (Vitamin D*), 1,000 UNIT GT TID, (Reported) Dextran 70/Hypromellose (Artificial Tears Eye Drops*), 1 DROP BOTH EYES QID, ( Reported) Ezetimibe (Zetia*), 10 MG GT BEDTIME, (Reported) Famotidine (Famotidine), 20 MG GT DAILY, (Reported) Ferrous Sulfate (Ferrous Sulfate), 6.8 ML GT DAILY, (Reported) Furosemide* (Lasix*), 20 MG ORAL DAILY, (Reported) Lactobacillus Rhamnosus Gg (Culturelle), 1 EACH GT BID, (Reported) Levodopa/Carbidopa (Carbidopa-Levo ER 25-100 Tab), 1 TAB ORAL TWICE A DAY, ( Reported) Levothyroxine Sodium* (Synthroid*), 112 MCG GT DAILY, (Reported) Multivitamins* (Multivitamins*), 1 TAB ORAL DAILY, (Reported) Ropinirole Hcl* (Ropinirole Hcl*), 1 MG GT BID, (Reported) Simvastatin (Zocor), 20 MG GT BEDTIME, (Reported) Warfarin Sod* (Warfarin Sod*), 4 MG ORAL DAILY, (Reported) Zinc Sulfate (Zinc Sulfate*), 220 MG GT DAILY, (Reported) Scheduled PRN Acetaminophen 160MG/5ML* (Acetaminophen*), 16 ML GT Q4HR PRN for For Pain Level <=5, (Reported) Diphenhydramine Hcl* (Benadryl Allergy*), 25 MG GT Q6HR PRN for Itching, ( Reported) Docusate Sodium (Docusate Sodium), 100 MG GT DAILY PRN for Constipation, ( Reported) Ipratropium/Albuterol Sulfate (DuoNeb 0.5-3(2.5)mg/3ml), 3 ML HHN Q6HR PRN for Shortness of Breath, (Reported) Magnesium Hydroxide* (Milk Of Magnesia*), 30 ML GT DAILY PRN for DOCUSATE INEFFECTIVE, (Reported) Polyethylene Glycol 3350* (Miralax*), 17 GM GT DAILY PRN for Constipation, ( Reported) Tramadol Hcl* (Ultram*), 25 MG GT DAILY PRN for For Pain, (Reported) Patient History Limited by: age, medical condition History Provided By: Patient, Family Member, Medical Record, PMD Healthcare decision maker Daughter Resuscitation status Do Not Resuscitate Advanced Directive on File No Past Medical/Surgical History Past Medical/Surgical History: (1) Bronchospasm (2) Pyelonephritis (3) Pyelonephritis (4) Bronchospasm (5) Dyspnea (6) Respiratory failure (7) Dilatation of esophagus (8) Encounter for PEG (percutaneous endoscopic gastrostomy) (9) Arthralgia (10) Hiatal hernia (11) Decubitus skin ulcer (12) Failure to thrive (13) HCAP (healthcare-associated pneumonia) (14) Decubitus ulcer of sacral region, stage 4 (15) Respiratory failure, acute and chronic (16) STEPHY (acute kidney injury) (17) Dehydration (18) PNA (pneumonia) (19) UTI (urinary tract infection) (20) Severe sepsis (21) Dysphasia (22) CHF (congestive heart failure) (23) Severe malnutrition (24) Fracture of femur (25) Fracture of femur (26) Incarcerated femoral hernia (27) Mild cognitive impairment (28) History of pulmonary embolism (29) Chronic diastolic CHF (congestive heart failure) Review of Systems Review of Symptoms General ROS: no weight loss or fever Psychological ROS: no depression or mood changes, no memory loss Ophthalmic ROS: no visual changes or eye irritation ENT ROS: no nasal congestion, hearing loss, dizziness Allergy and Immunology ROS: no allergic symptoms or urticaria Hematological and Lymphatic ROS: no swollen glands, unusual bleeding or bruising Endocrine ROS: no polyuria, polydipsia, weight changes, temperature intolerance Respiratory ROS: no cough, shortness of breath, or wheezing Cardiovascular ROS: no chest pain or dyspnea on exertion Gastrointestinal ROS: denies abdominal pain, no bright red blood in stool. Musculoskeletal ROS: no myalgias or arthralgias Neurological ROS: no TIA or stroke symptoms Dermatological ROS: no new or changing skin lesions, rashes or pruritis Physical Exam Physical Exam General appearance: alert, cooperative, no distress, appears stated age Head: Normocephalic, without obvious abnormality, atraumatic Eyes: conjunctivae/corneas clear. PERRL, EOM's intact. Fundi benign Throat: Lips, mucosa, and tongue normal. Teeth and gums normal Neck: supple, symmetrical, trachea midline, no adenopathy, thyroid: not enlarged, symmetric, no tenderness/mass/nodules, no carotid bruit and no JVD Lungs: clear to auscultation bilaterally Heart: regular rate and rhythm, S1, S2 normal, no murmur, click, rub or gallop Abdomen: soft, non-tender. Bowel sounds normal. No masses, no organomegaly Extremities: extremities normal, atraumatic, no cyanosis or edema Pulses: 2+ and symmetric Skin: Skin color, texture, turgor normal. No rashes or lesions Neurologic: Grossly normal Last 24 Hour Vital Signs Date Time Temp Pulse Resp B/P (MAP) Pulse Ox O2 Delivery O2 Flow Rate FiO2 08/23/18 12:52 70 20 99 Facial 30 08/23/18 12:00 97.7 66 23 107/51 (69) 99 08/23/18 12:00 67 08/23/18 12:00 30.0 08/23/18 12:00 Bi-pap 08/23/18 10:40 69 20 98 Facial 30 08/23/18 08:45 71 20 98 Facial 30 08/23/18 08:00 Bi-pap 08/23/18 08:00 30.0 08/23/18 08:00 Bi-pap 08/23/18 08:00 98.1 70 24 123/78 (93) 97 08/23/18 07:47 68 25 98 Facial 30 08/23/18 07:34 64 08/23/18 06:40 97.9 69 22 120/61 (80) 08/23/18 05:50 99.0 71 15 123/65 100 Bi-pap 30 08/23/18 05:13 99.0 71 15 123/65 100 Bi-pap 30 08/23/18 05:13 71 15 Bi-pap 30 08/23/18 05:05 80 20 99 Facial 30 08/23/18 04:36 99.0 08/23/18 04:20 80 20 100 Bi-Pap 30 08/23/18 04:05 86 25 99 Bi-Pap 30 08/23/18 04:05 86 25 99 Bi-Pap 30 08/23/18 04:05 30 08/23/18 03:55 86 25 99 Facial 30 08/23/18 03:43 100.2 89 24 130/72 (91) 78 Bi-pap Intake and Output 08/22/18 08/23/18 19:00 07:00 Intake Total 100 ml Output Total 100 ml Balance 0 ml Intake Oral 0 ml Free Water 100 ml Output Urine Total 100 ml Laboratory Tests Test 08/23/18 03:50 08/23/18 04:00 08/23/18 08:25 White Blood Count 32.7 K/UL (4.8-10.8) *H Red Blood Count 3.63 M/UL (4.20-5.40) L Hemoglobin 9.6 G/DL (12.0-16.0) L Hematocrit 32.4 % (37.0-47.0) L Mean Corpuscular Volume 89 FL (80-99) Mean Corpuscular Hemoglobin 26.6 PG (27.0-31.0) L Mean Corpuscular Hemoglobin Concent 29.8 G/DL (32.0-36.0) L Red Cell Distribution Width 17.7 % (11.6-14.8) H Platelet Count 279 K/UL (150-450) Mean Platelet Volume 11.1 FL (6.5-10.1) H Neutrophils (%) (Auto) % (45.0-75.0) Lymphocytes (%) (Auto) % (20.0-45.0) Monocytes (%) (Auto) % (1.0-10.0) Eosinophils (%) (Auto) % (0.0-3.0) Basophils (%) (Auto) % (0.0-2.0) Differential Total Cells Counted 100 Neutrophils % (Manual) 83 % (45-75) H Lymphocytes % (Manual) 12 % (20-45) L Monocytes % (Manual) 5 % (1-10) Eosinophils % (Manual) 0 % (0-3) Basophils % (Manual) 0 % (0-2) Band Neutrophils 0 % (0-8) Platelet Estimate Adequate Platelet Morphology Normal Red Blood Cell Morphology Normal Sodium Level 163 MMOL/L (136-145) *H Potassium Level 4.7 MMOL/L (3.5-5.1) Chloride Level 123 MMOL/L (98-107) H Carbon Dioxide Level 38 MMOL/L (21-32) H Anion Gap 2 mmol/L (5-15) L Blood Urea Nitrogen 100 mg/dL (7-18) H Creatinine 1.1 MG/DL (0.55-1.30) Estimat Glomerular Filtration Rate mL/min (>60) Glucose Level 153 MG/DL (74-106) H Lactic Acid Level 1.80 mmol/L (0.4-2.0) Calcium Level 9.4 MG/DL (8.5-10.1) Total Bilirubin 0.3 MG/DL (0.2-1.0) Aspartate Amino Transf (AST/SGOT) 58 U/L (15-37) H Alanine Aminotransferase (ALT/SGPT) 81 U/L (12-78) H Alkaline Phosphatase 134 U/L (46-116) H Total Creatine Kinase 28 U/L (26-308) Creatine Kinase MB < 0.5 NG/ML (0.0-3.6) Creatine Kinase MB Relative Index 1.7 Troponin I 0.077 ng/mL (0.000-0.056) Total Protein 6.9 G/DL (6.4-8.2) Albumin 2.1 G/DL (3.4-5.0) L Globulin 4.8 g/dL Albumin/Globulin Ratio 0.4 (1.0-2.7) L Urine Color Pale yellow Urine Appearance Slightly cloudy Urine pH 6 (4.5-8.0) Urine Specific [place] 1.005 (1.005-1.035) Urine Protein 2+ (NEGATIVE) H Urine Glucose (UA) Negative (NEGATIVE) Urine Ketones Negative (NEGATIVE) Urine Blood 4+ (NEGATIVE) H Urine Nitrite Negative (NEGATIVE) Urine Bilirubin Negative (NEGATIVE) Urine Urobilinogen Normal MG/DL (0.0-1.0) Urine Leukocyte Esterase 3+ (NEGATIVE) H Urine RBC Tntc /HPF (0 - 2) H Urine WBC Tntc /HPF (0 - 2) H Urine Squamous Epithelial Cells Few /LPF (NONE/OCC) Urine Bacteria Many /HPF (NONE) H Prothrombin Time 25.7 SEC (9.30-11.50) H Prothromb Time International Ratio 2.5 (0.9-1.1) H Height (Feet): 5 Height (Inches): 5.00 Weight (Pounds): 135 Medications Current Medications Medications (Trade) Dose Ordered Sig/Marcel Route PRN Reason Start Time Stop Time Status Last Admin Dose Admin Atorvastatin Calcium (Lipitor) 20 mg BEDTIME GT 08/23/18 21:00 09/22/18 20:59 Carbidopa/Levodopa (Sinemet 25/250) 1 tab BID@0730,1230 GT 08/23/18 12:30 09/22/18 12:29 08/23/18 12:54 Chlorhexidine Gluconate (Yolanda-Hex 2%) 1 applic DAILY@2000 TOPIC 08/23/18 20:00 09/22/18 19:59 Dextrose 1,000 ml @ 75 mls/hr [id number] IV 08/23/18 08:12 09/22/18 08:11 08/23/18 09:09 Dextrose (Dextrose 50%) 25 ml Q30M PRN IV Hypoglycemia 08/23/18 08:15 09/22/18 08:14 Dextrose (Dextrose 50%) 50 ml Q30M PRN IV Hypoglycemia 08/23/18 08:15 09/22/18 08:14 EZETIMIBE (Zetia) 10 mg BEDTIME GT 08/23/18 21:00 09/22/18 20:59 Heparin Sodium/ Sodium Chloride (Heparin 1000 units/500ml Premix) 1,000 unit ONCE PRN IV PICC 08/23/18 09:00 08/23/18 23:59 Lansoprazole (Prevacid) 30 mg DAILY GT 08/23/18 09:00 09/22/18 08:59 08/23/18 09:09 Levothyroxine Sodium (Synthroid) 112 mcg DAILY@0630 GT 08/24/18 06:30 09/23/18 06:29 Lidocaine HCl (Xylocaine 1% 30ml) 30 ml ONCE PRN INJ PICC 08/23/18 09:03 08/23/18 23:59 Mirtazapine (Remeron) 15 mg DAILY@1800 GT 08/23/18 18:00 09/22/18 17:59 Piperacillin Sod/ Tazobactam Sod 3.375 gm/Sodium Chloride 110 ml @ 27.5 mls/hr EVERY 8 HOURS IVPB 08/23/18 14:00 08/28/18 13:59 08/23/18 14:23 Ropinirole HCl (Requip) 1 mg BID@0730,1230 GT 08/23/18 12:30 09/22/18 12:29 08/23/18 12:54 Vancomycin HCl (Vanco rx to dose) 1 ea DAILY PRN MISC Per rx protocol 08/23/18 12:30 09/22/18 12:29 Vancomycin HCl 750 mg/Sodium Chloride 275 ml @ 183.333 mls/hr Q24H IVPB 08/24/18 04:00 08/29/18 03:59 Warfarin Sodium (Coumadin per pharmacy) 1 ea DAILY PRN MISC Per rx protocol 08/23/18 08:15 09/22/18 08:14 Zinc Sulfate (Zinc Sulfate) 220 mg DAILY GT 08/23/18 09:00 09/22/18 08:59 08/23/18 09:10 Assessment/Plan Problem List: (1) Severe malnutrition Assessment & Plan: need nutritional optimization nutrition consult labs feeds as tolerated ICD Codes: E43 - Unspecified severe protein-calorie malnutrition SNOMED: 70004361 (2) Failure to thrive SNOMED: 70324052 (3) Decubitus ulcer of sacral region, stage 4 Assessment & Plan: Pt presented on admission with multiple pressure injuries.Scattered areas of non-blanchable erythema noted to R earlobe. L earlobe is pink and blanchable. #2 areas of non-blanching erythema noted to L scapula(proximal)-(L)2cm x (W) 2.5cm,(Distal)-(L)1cm x(W)0.6cm. Non-blanchable erythema noted to L thoracic(L)1.5cm x (W)2cm. Cat 3 skin tear with 100% flap loss noted to Medial L antecubital (L)0.6cm x (W) 0.5cm. Full thickness sacral pressure injury with undermining noted (L)7cm x (W)7.5cm x (D)0.5cm ,undermining clockwise 12-12 by 5.2cm @12o'clock. [place] granulation at base of wound .Loose edges ,(+) epibole noted. Periwound is indurated with additional skin breakdown noted periwound -Clockwise at 6o'clock an area of soft necrosis that is partially opened but dry noted (L)3.5cm x (W)1.8cm , an area that is fluctuant and maroon in colour noted at 5o'clock (L)2.5cm x (W) 2cm.DTR at bedside and was informed likelihood of these two areas becoming open wounds secondary to already compromised skin from sacral wound and that that these areas are over undermined areas of sacral wound..Both ischial areas are pink and blanchable. Pt noted to have developed erythema to L scapula and L hip and L trochanter within few minutes of being on L side for staff to assess wounds. Dtr also educated pt is at high risks secondary to poor tissue perfusion and comorbidities. Pt noted to be wearing soft heel raiser boots .Upon removal of heel raiser boots pt noted to have DTPI's to R and L posterior tibias.L tibia has an elongated area that is maroon in colour and base of wound is indurated(L)11.5cm x (W)2cm. R tibia DTPI. Base of wound is maroon and indurated (L)1.2cm x (W)0.5cm. scattered areas of non-blanching erythema periwound Dtr informed it was in best interest of pt to discontinue heel raiser boots and have both lower ext off- loaded with pillows with heels floated. Dtr agreed with staff. R heel and plantar R heel fluctuant and maroon in colour (L)4.5cm x (W)7.5cm. L heel fluctuant but blanchable. cavilon Skin Barrier applied with Optifoam drsgs to all bony prominences such as both clavicles,both scapulae,bilat elbows ,both trochanter/ hips, and kyphosis to minimize skin breakdown. Dtr informed pt will be transferred to an Air fluidized mattress pending delivery today.Pt positioned with pillows. Tx.Plan: Cleanse Sacral wound with Saline.Apply Hydrogel. Layer Calcium Alginate sheet with attention to undermined borders of wound. Apply Triad paste periwound. Cover with Optifoam drsg Daily and prn. Apply [place] Skin Barrier to bony prominences. Cover each area with Optifoam drsgs. Change every 7 days and PRN. Apply [place] Skin Barrier to R and L tibia. Cover each wound with Optifoam drsgs. Change every 7 days and prn. Apply [place] Skin Barrier to R heel DTPI. Cover with Optifoam drsg. Change every 7 days and PRN. Clean skin tear medial L antecubital. (leave Versatel in place)Apply Silvasorb gel. Cover with Optifoam drsg every 7 days and prn. Air Fluidized mattress. Reposition at least every 2hours or as tolerated. Place pillow between knees .Off-load heels with pillows. ICD Codes: L89.154 - Pressure ulcer of sacral region, stage 4 SNOMED: 405837821, 089465532 (4) Abnormal LFTs ICD Codes: R94.5 - Abnormal results of liver function studies SNOMED: 520727937 (5) HCAP (healthcare-associated pneumonia) ICD Codes: J18.9 - Pneumonia, unspecified organism SNOMED: 894482410, 281426286 (6) Respiratory failure, acute and chronic ICD Codes: J96.20 - Acute and chronic respiratory failure, unspecified whether with hypoxia or hypercapnia SNOMED: 40227229, 128318562 Qualifiers: Qualified Codes: J96.21 - Acute and chronic respiratory failure with hypoxia (7) STEPHY (acute kidney injury) ICD Codes: N17.9 - Acute kidney failure, unspecified SNOMED: 26401545, 7761820 (8) Dehydration ICD Codes: E86.0 - Dehydration SNOMED: 61395899 (9) Dysphasia ICD Codes: R47.02 - Dysphasia SNOMED: 06948551 (10) CHF (congestive heart failure) ICD Codes: I50.9 - Heart failure, unspecified SNOMED: 30956058 (11) Dilatation of esophagus ICD Codes: K22.8 - Other specified diseases of esophagus SNOMED: 12238605 (12) Hiatal hernia ICD Codes: K44.9 - Diaphragmatic hernia without obstruction or gangrene SNOMED: 80161493 (13) Arthralgia ICD Codes: M25.50 - Pain in unspecified joint SNOMED: 39187542 (14) Bronchospasm ICD Codes: J98.01 - Acute bronchospasm SNOMED: 23460499834913 (15) Bronchospasm ICD Codes: J98.01 - Acute bronchospasm SNOMED: 9330626 (16) Decubitus skin ulcer ICD Codes: L89.90 - Pressure ulcer of unspecified site, unspecified stage SNOMED: 835550279 (17) Dyspnea ICD Codes: R06.00 - Dyspnea, unspecified SNOMED: 235243902 (18) Pyelonephritis ICD Codes: N12 - Tubulo-interstitial nephritis, not specified as acute or chronic SNOMED: 42841715 (19) Pyelonephritis ICD Codes: N12 - Tubulo-interstitial nephritis, not specified as acute or chronic SNOMED: 38474754 (20) Respiratory failure ICD Codes: J96.90 - Respiratory failure, unspecified, unspecified whether with hypoxia or hypercapnia SNOMED: 846840956 (21) UTI (urinary tract infection) ICD Codes: N39.0 - Urinary tract infection, site not specified SNOMED: 96611047, 505673151 Qualifiers: Qualified Codes: N30.00 - Acute cystitis without hematuria (22) Severe sepsis Assessment & Plan: Abx ID recs thank you ICD Codes: A41.9 - Sepsis, unspecified organism; R65.20 - Severe sepsis without septic shock SNOMED: 94899246, 229895359 (23) Encounter for PEG (percutaneous endoscopic gastrostomy) ICD Codes: Z43.1 - Encounter for attention to gastrostomy SNOMED: 913295361, 691162555 (24) PNA (pneumonia) ICD Codes: J18.9 - Pneumonia, unspecified organism SNOMED: 152026879 (25) Fracture of femur ICD Codes: S72.90XA - Fracture of femur SNOMED: 10613760 (26) Fracture of femur ICD Codes: S72.90XA - Fracture of femur SNOMED: 67144639 (27) Incarcerated femoral hernia ICD Codes: K41.30 - Unil femoral hernia, w obst, w/o gangrene, not spcf as recur SNOMED: 425035327 (28) Mild cognitive impairment ICD Codes: G31.84 - Mild cognitive impairment SNOMED: 963990216 (29) History of pulmonary embolism ICD Codes: Z86.711 - History of pulmonary embolism SNOMED: 524385065 (30) Chronic diastolic CHF (congestive heart failure) ICD Codes: I50.32 - Chronic diastolic CHF (congestive heart failure) SNOMED: 258164581 Sachin Lott Aug 23, 2018 16:04
--- NOTE | 2018-08-23 17:03 | Cardiology Report ---
APPROVED REPORT EKG Measurement Heart [id number] FL 132P57 [id number] Normal sinus rhythm Nonspecific ST and T wave abnormality Abnormal ECG
[2018-08-23] MEDS: Meropenem 1 GM in NS 55 ML IVPB SCH (17:24)
--- NOTE | 2018-08-23 19:10 | NUR ---
HAND-OFF: Report given to Lydia Beltrán RN. Pt in stable condition.
--- NOTE | 2018-08-23 19:11 | NUR ---
NURSE NOTES: Received patient from Yue HERRMANN. Patient is obtunded and receiving oxygen via Bipap settings 20/10 at 30%. G-tube is patent and intact receiving Glucerna 1.5 at 45cc/hr, goal is 65cc. Joyner catheter is patent and draining. IV site is right upper arm PICC receiving D5W at 75cc/hr. Bed is locked, placed in lowest position, side rails up x3, bed alarm on, call light within reach. Will continue to monitor.
[2018-08-23 20:00] VITALS: BP 109/68
[2018-08-23] MEDS ORDERED: IPRATROPIU0.2 MG/1 M HHN (20:00)
[2018-08-23] MEDS: Dyna-Hex 2% Top Sol 2oz TOPIC SCH (20:28)
[2018-08-23] MEDS: Atorvastatin 20mg tab GT SCH (20:28)
--- NOTE | 2018-08-23 23:30 | NUR ---
NURSE NOTES: Patient's quinn catheter that was inserted prior to admission was removed. Sterile technique was utilized when inserting new Fr. 16 Quinn Catheter, it is patent and draining.
[2018-08-24] VITALS: BP 109/57
--- NOTE | 2018-08-24 | NUR ---
NURSE NOTES: Patient was placed on NPO for abdominal ultra sound 08/24/18. G-tube feeding was turned off.
[2018-08-24] MEDS: Vancomycin 750mg/NS 275ml IVPB SCH ×2 (03:32)
[2018-08-24 04:00] VITALS: BP 127/71
[2018-08-24 05:00] LABS: HEMATOCRIT 28.5 % (37.0-47.0); HEMOGLOBIN 8.7 G/DL (12.0-16.0); MEAN CORPUSCULAR VOLUME 90 FL (80-99); PLATELET COUNT 204 K/UL (150-450); RED BLOOD COUNT 3.16 M/UL (4.20-5.40); RED CELL DISTRIBUTION WIDTH 17.3 % (11.6-14.8)
[2018-08-24 05:02] LABS: ANION GAP 6 mmol/L (5-15); BLOOD UREA NITROGEN 79 mg/dL (7-18); CALCIUM 8.7 MG/DL (8.5-10.1); CARBON DIOXIDE 36 MMOL/L (21-32); CHLORIDE 116 MMOL/L (98-107); CREATININE 0.9 MG/DL (0.55-1.30); POTASSIUM 3.7 MMOL/L (3.5-5.1); SODIUM 158 MMOL/L (136-145)
[2018-08-24] MEDS: Meropenem 1 GM in NS 55 ML IVPB SCH ×2 (05:04→17:24)
[2018-08-24 05:12] LABS: INR 3.2 (0.9-1.1)
[2018-08-24 05:31] LABS: WHITE BLOOD COUNT 25.5 K/UL (4.8-10.8)
[2018-08-24] MEDS: Levodopa/Carbidopa 25/250 tab GT SCH ×2 (06:39→13:49)
--- NOTE | 2018-08-24 07:00 | NUR ---
RESPIRATORY NOTE: pt recieved on bipap full face mask, no SOB or discofort noted, no redness or skin tear noted, nasal suction, will continue to monitor the pt
--- NOTE | 2018-08-24 07:28 | Nephrology Progress Note ---
Assessment/Plan Assessment/Plan: A/P 1) Hypernatremia- improved, Na down to 158 - continue D5W 2) Sepsis- G- bacteremia- awaiting quinn and PICC line replacement - Abx per ID 3) Resp FL- on BiPAp and being weaned by Pulm 4) DVT- on coumadin, INR goal 2-3 5) Malnutrition- TFs Subjective Date patient seen: Aug 24, 2018 Time patient seen: 07:25 ROS Limited/Unobtainable: Yes Allergies: Coded Allergies: STRAWBERRY (Verified Allergy, Unknown, Rash, 06/29/13) COPIED FROM UNCODED SECTION VALSARTAN (Verified Allergy, Unknown, 03/09/11) Subjective Patient remains on facial BiPAP Objective Last 24 Hour Vital Signs Date Time Temp Pulse Resp B/P (MAP) Pulse Ox O2 Delivery O2 Flow Rate FiO2 08/24/18 05:11 65 21 98 Full Face 30 08/24/18 04:00 98.7 64 27 127/71 (89) 100 08/24/18 04:00 Bi-pap 08/24/18 04:00 30.0 08/24/18 03:44 64 08/24/18 03:19 63 24 99 Facial 30 08/24/18 01:30 61 26 99 Full Face 30 08/24/18 00:00 98.1 62 26 109/57 (74) 100 08/24/18 00:00 Bi-pap 08/23/18 23:30 64 23 100 Full Face 30 08/23/18 23:30 62 08/23/18 21:30 61 25 100 Facial 30 08/23/18 20:00 98.1 65 22 109/68 (82) 98 08/23/18 20:00 30.0 08/23/18 19:30 62 19 99 Facial 30 08/23/18 19:09 Bi-pap 08/23/18 19:05 62 08/23/18 16:34 69 20 99 Facial 30 08/23/18 16:00 97.2 63 26 94/53 (67) 99 08/23/18 16:00 63 08/23/18 16:00 Bi-pap 08/23/18 16:00 30.0 08/23/18 14:41 68 20 99 Facial 30 08/23/18 12:52 70 20 99 Facial 30 08/23/18 12:00 97.7 66 23 107/51 (69) 99 08/23/18 12:00 67 08/23/18 12:00 30.0 08/23/18 12:00 Bi-pap 08/23/18 10:40 69 20 98 Facial 30 08/23/18 08:45 71 20 98 Facial 30 08/23/18 08:00 Bi-pap 08/23/18 08:00 30.0 08/23/18 08:00 Bi-pap 08/23/18 08:00 98.1 70 24 123/78 (93) 97 08/23/18 07:47 68 25 98 Facial 30 08/23/18 07:34 64 Intake and Output 08/23/18 08/24/18 19:00 07:00 Intake Total 1100.5 ml 1418.750 ml Output Total 600 ml 600 ml Balance 500.5 ml 818.750 ml Free Water 150 ml IV Total 685.5 ml 1118.750 ml Tube Feeding 265 ml 300 ml Output Urine Total 600 ml 600 ml # Bowel Movements 4 Laboratory Tests 08/23/18 08:25: Prothrombin Time 25.7H, Prothromb Time International Ratio 2.5H 08/23/18 16:24: Arterial Blood pH 7.484H, Arterial Blood Partial Pressure CO2 44.1, Arterial Blood Partial Pressure O2 107.5H, Arterial Blood HCO3 32.4H, Arterial Blood Oxygen Saturation 97.5, Arterial Blood Base Excess 8.1H, [place] Test Positive 08/24/18 04:00: Prothrombin Time 32.0H, Prothromb Time International Ratio 3.2H, White Blood Count 25.5*H, Red Blood Count 3.16L, Hemoglobin 8.7L, Hematocrit 28.5L, Mean Corpuscular Volume 90, Mean Corpuscular Hemoglobin 27.4, Mean Corpuscular Hemoglobin Concent 30.4L, Red Cell Distribution Width 17.3H, Platelet Count 204 , Mean Platelet Volume 12.2H, Neutrophils (%) (Auto) , Lymphocytes (%) (Auto) , Monocytes (%) (Auto) , Eosinophils (%) (Auto) , Basophils (%) (Auto) , Neutrophils % (Manual) [Pending], Lymphocytes % (Manual) [Pending], Platelet Estimate [Pending], Platelet Morphology [Pending], Sodium Level 158H, Potassium Level 3.7, Chloride Level 116H, Carbon Dioxide Level 36H, Anion Gap 6, Blood Urea Nitrogen 79H, Creatinine 0.9, Estimat Glomerular Filtration Rate , Glucose Level 132H, Calcium Level 8.7 Height (Feet): 5 Height (Inches): 5.00 Weight (Pounds): 135 General Appearance: mild distress EENT: normal ENT inspection Neck: normal alignment, supple Cardiovascular: normal rate, regular rhythm Respiratory/Chest: rhonchi - bilaterally Abdomen: non tender, soft Edema: no edema noted Arm (L), no edema noted Arm (R), no edema noted Leg (L), no edema noted Leg (R), no edema noted Pedal (L), no edema noted Pedal (R), no edema noted Generalized Jeremiah Mclaughlin MD Aug 24, 2018 07:28
--- NOTE | 2018-08-24 07:34 | NUR ---
HAND-OFF: Report given to Nila Quezada RN. Patient in stable condition.
--- NOTE | 2018-08-24 07:35 | NUR ---
NURSE NOTES: Report received from Justine Beltrán RN.Pt resting in bed asleep,on Bipap20/10 , Fio2 30%,pt tachypneic,HOB elevated, no signs of pain or discomfort,SR on the monitor,kept NPO for US of the Abdomen,GTF Glucerna 1.5 turned OFF,Joyner cath in placed draining yellow urine,IV site to MELISSA Picc line x1 port intact, IVF d5W at 75 ml/hr,skin warm and dry,with multiple wounds ,SR up x2 ,bed lock in lowest position,will continue with plans of care.
[2018-08-24 08:00] VITALS: BP 95/60
[2018-08-24] MEDS: Zinc Sulfate 220mg cap GT SCH (09:28)
--- NOTE | 2018-08-24 10:00 | NUR ---
NURSE NOTES: US tech at bedside,with ongoing US Abdomen in progress,procedure tolerated,pt in no distress daughter at bedside.
--- NOTE | 2018-08-24 10:02 | NUR ---
NURSE NOTES: US done,Radiology techs at bedside for insertion of PICC line, consent signed by family member.
--- NOTE | 2018-08-24 11:00 | Diagnostic Imaging Report ---
Indication: Abdominal pain Technique: Grayscale and duplex Doppler imaging of the abdomen performed. Comparison: None Findings: There are abdominal bandages not allowing for optimal windows for scanning. The study is limited. The liver is grossly unremarkable as visualized. Doppler interrogation of the main portal vein shows patency with hepatopedal, monophasic flow. There is no biliary ductal dilatation identified. CBD is 6 mm. Gallbladder is notable for mild sludge without obvious stones. Sonographic Chopra's sign was equivocal per technologist as the patient could not respond. There demonstrated part of the pancreas, aorta and IVC show no definite abnormalities low significantly obscured by bowel gas . Both kidneys appear grossly unremarkable. There is no hydronephrosis. IMPRESSION: No acute findings identified. Limited study as described above.
--- NOTE | 2018-08-24 11:20 | NUR ---
PICC LINE PLACED ON LEFT UPPER ARM [address] POOL
--- NOTE | 2018-08-24 11:46 | NUR ---
RD ASSESSMENT & RECOMMENDATIONS SEE CARE ACTIVITY FOR COMPLETE ASSESSMENT DAILY ESTIMATED NEEDS: Needs based on Wounds, pulmonary, 49kg 30-35 kcals/kg 1197-1958 total kcals 1.25-2 g protein/kg 61-98 g total protein 25-30ml/kcal mL/kg 5880-1885 total fluid mLs NUTRITION DIAGNOSIS: * Increased kcal/prot needs R/T wound healing, as evidenced by multiple wounds per photo- refer to wound eval, including stage 4 sacral wound. * Swallowing difficulty R/T dysphagia as evidenced by pt is GT dependent, currently on Bipap. CURRENT TF: Glucerna 1.5 @65ml/hr continuous ENTERAL NUTRITION RECOMMENDATIONS: Glucerna 1.5 @50ml/hr x22 hrs to provide 1100ml, 1650kcal, 91g prot, 835ml free water * As medically able, start Glucerna 1.5 @20ml/hr for 6 hrs. Advance as tolerated 10ml/hr q4-6 hrs to goal * Hold 1 hr before and after Synthroid med. * HOB over 30 degrees/ water flush per MD. ----- ALTERNATIVELY IF PT IS ON BIPAP FOR EXTENDED TIME, REC LIMITED 12 HR TF RUN TIME: -> Glucerna 1.5 @82ml/hr x12 hrs to provide 984ml, 1476 kcal, 81g pro, 747ml free H2O. -> 82ml/hr= est 5.5 tablespoons of tube feed per hour -> TF at goal meets 100% est kcal and pro needs. ADDITIONAL RECOMMENDATIONS: * RE-calibrated bedscale wt-> now w/ added P200 mattress * Wound healing: add Larry 1pkt BID + MVI w/ min daily + Vit C 250mg BID + Continue ZnSO4 220mg x10 days * Rec to increase water flushes totalling 600ml free fluid/day when off IVF * Weekly calibrated bed scale wts .
--- NOTE | 2018-08-24 11:54 | NUR ---
RESPIRATORY NOTE: pt now using partial mask with gel protection and foam on the chin. will cont to monitor.
[2018-08-24 12:01] VITALS: BP 101/48
--- NOTE | 2018-08-24 13:00 | NUR ---
NURSE NOTES: Pt turned and repositioned,no resp distress presented family member at bedside.
--- NOTE | 2018-08-24 13:06 | Diagnostic Imaging Report ---
Indication: meterman venous access Findings: After the indications, procedure, risks, complications, and alternatives of the procedure were explained, written informed consent was obtained. The left upper extremity was prepped with alcohol. All elements of maximal sterile barrier technique were followed including usage of a cap, mask, sterile gown, sterile gloves, hand hygiene and a large sterile sheet. Sonographic evaluation of the upper extremity was performed demonstrating a patent and compressible basilic vein. Access was obtained under real-time ultrasound guidance (with utilization of sterile gel and sterile probe cover) and digital image was saved and archived. An .018 wire was introduced. Needle exchanged for a 5 Tamazight peel-away sheath. Measurements were obtained. A 5 Tamazight dual-lumen Power PICC line catheter was cut to 40 cm and introduced over the wire. Peel-away sheath and wire were removed.Catheter was secured to the skin using 2-0 Prolene suture. Both ports aspirate and flush easily. Post procedure chest x-ray demonstrates good position of the PICC line catheter within the SVC. Impression: Successful placement of an upper extremity PICC line catheter
--- NOTE | 2018-08-24 13:22 | Pulmonology Progress Note ---
Assessment/Plan Assessment/Plan Problem List: 1. Acute hypoxemic respiratory failure 2. Pneumonia 3. UTI 4. Sepsis 5. Dementia 6. hx osteomyelitis 7. Dysphagia s/p PEG Plan: -ABG on adjusted BiPAP settings and in AM -BiPAP 18/8 for now, adjust based on ABG -duonebs -abx per ID -f/u cultures -cont tube feeds Subjective ROS Limited/Unobtainable: Yes Interval Events: Remains on BiPAP. Cont oral secretions at times. WBC/labs improved. Allergies: Coded Allergies: STRAWBERRY (Verified Allergy, Unknown, Rash, 06/29/13) COPIED FROM UNCODED SECTION VALSARTAN (Verified Allergy, Unknown, 03/09/11) Objective Last 24 Hour Vital Signs Date Time Temp Pulse Resp B/P (MAP) Pulse Ox O2 Delivery O2 Flow Rate FiO2 08/24/18 12:04 30.0 08/24/18 12:01 98.1 61 22 101/48 (65) 99 08/24/18 12:00 Bi-pap 08/24/18 11:52 58 08/24/18 08:15 59 27 100 Full Face 30 08/24/18 08:11 30.0 08/24/18 08:00 Bi-pap 08/24/18 08:00 98.1 75 28 95/60 (72) 100 08/24/18 08:00 65 08/24/18 07:00 79 26 100 Full Face 30 08/24/18 05:11 65 21 98 Full Face 30 08/24/18 04:00 98.7 64 27 127/71 (89) 100 08/24/18 04:00 Bi-pap 08/24/18 04:00 30.0 08/24/18 03:44 64 08/24/18 03:19 63 24 99 Facial 30 08/24/18 01:30 61 26 99 Full Face 30 08/24/18 00:00 98.1 62 26 109/57 (74) 100 08/24/18 00:00 Bi-pap 08/23/18 23:30 64 23 100 Full Face 30 08/23/18 23:30 62 08/23/18 21:30 61 25 100 Facial 30 08/23/18 20:00 98.1 65 22 109/68 (82) 98 08/23/18 20:00 30.0 08/23/18 19:30 62 19 99 Facial 30 08/23/18 19:09 Bi-pap 08/23/18 19:05 62 08/23/18 16:34 69 20 99 Facial 30 08/23/18 16:00 97.2 63 26 94/53 (67) 99 08/23/18 16:00 63 08/23/18 16:00 Bi-pap 08/23/18 16:00 30.0 08/23/18 14:41 68 20 99 Facial 30 Intake and Output 08/23/18 08/24/18 19:00 07:00 Intake Total 1100.5 ml 1418.750 ml Output Total 600 ml 600 ml Balance 500.5 ml 818.750 ml Free Water 150 ml IV Total 685.5 ml 1118.750 ml Tube Feeding 265 ml 300 ml Output Urine Total 600 ml 600 ml # Bowel Movements 4 General Appearance: no acute distress HEENT: mucous membranes moist Respiratory/Chest: lungs clear Cardiovascular: normal rate, regular rhythm Abdomen: soft, non tender Extremities: no edema Microbiology Date/Time Source Procedure Growth Status 08/23/18 03:50 Blood Blood Culture - Preliminary Resulted 08/23/18 03:30 Blood Blood Culture - Preliminary Resulted 08/23/18 04:00 Urine,Clean Catch Urine Culture - Preliminary Gram Negative Bacillus 1 Resulted 08/23/18 18:00 Rectum Received Laboratory Tests 08/23/18 16:24: Arterial Blood pH 7.484H, Arterial Blood Partial Pressure CO2 44.1, Arterial Blood Partial Pressure O2 107.5H, Arterial Blood HCO3 32.4H, Arterial Blood Oxygen Saturation 97.5, Arterial Blood Base Excess 8.1H, Cruzito Test Positive 08/24/18 04:00: White Blood Count 25.5*H, Red Blood Count 3.16L, Hemoglobin 8.7L, Hematocrit 28.5L, Mean Corpuscular Volume 90, Mean Corpuscular Hemoglobin 27.4, Mean Corpuscular Hemoglobin Concent 30.4L, Red Cell Distribution Width 17.3H, Platelet Count 204, Mean Platelet Volume 12.2H, Neutrophils (%) (Auto) , Lymphocytes (%) (Auto) , Monocytes (%) (Auto) , Eosinophils (%) (Auto) , Basophils (%) (Auto) , Differential Total Cells Counted 100, Neutrophils % ( Manual) 91H, Lymphocytes % (Manual) 4L, Monocytes % (Manual) 4, Eosinophils % ( Manual) 1, Basophils % (Manual) 0, Band Neutrophils 0, Platelet Estimate Adequate, Platelet Morphology Normal, Hypochromasia 2+, Anisocytosis 1+, Prothrombin Time 32.0H, Prothromb Time International Ratio 3.2H, Sodium Level 158H, Potassium Level 3.7, Chloride Level 116H, Carbon Dioxide Level 36H, Anion Gap 6, Blood Urea Nitrogen 79H, Creatinine 0.9, Estimat Glomerular Filtration Rate , Glucose Level 132H, Calcium Level 8.7 Current Medications Medications (Trade) Dose Ordered Sig/Marcel Route PRN Reason Start Time Stop Time Status Last Admin Dose Admin Atorvastatin Calcium (Lipitor) 20 mg BEDTIME GT 08/23/18 21:00 09/22/18 20:59 08/23/18 20:28 Carbidopa/Levodopa (Sinemet 25/250) 1 tab BID@0730,1230 GT 08/23/18 12:30 09/22/18 12:29 08/24/18 06:39 Chlorhexidine Gluconate (Yolanda-Hex 2%) 1 applic DAILY@2000 TOPIC 08/23/18 20:00 09/22/18 19:59 08/23/18 20:28 Dextrose 1,000 ml @ 75 mls/hr [id number] IV 08/23/18 08:12 09/22/18 08:11 08/23/18 21:29 Dextrose (Dextrose 50%) 25 ml Q30M PRN IV Hypoglycemia 08/23/18 08:15 09/22/18 08:14 Dextrose (Dextrose 50%) 50 ml Q30M PRN IV Hypoglycemia 08/23/18 08:15 09/22/18 08:14 EZETIMIBE (Zetia) 10 mg BEDTIME GT 08/23/18 21:00 09/22/18 20:59 08/23/18 20:28 Lansoprazole (Prevacid) 30 mg DAILY GT 08/23/18 09:00 09/22/18 08:59 08/24/18 09:26 Levothyroxine Sodium (Synthroid) 112 mcg DAILY@0630 GT 08/24/18 06:30 09/23/18 06:29 08/24/18 05:59 Meropenem 1 gm/ Sodium Chloride 55 ml @ 110 mls/hr Q12H IVPB 08/23/18 17:00 08/28/18 16:59 08/24/18 05:04 Mirtazapine (Remeron) 15 mg DAILY@1800 GT 08/23/18 18:00 09/22/18 17:59 08/23/18 17:24 Ropinirole HCl (Requip) 1 mg BID@0730,1230 GT 08/23/18 12:30 09/22/18 12:29 08/24/18 06:39 Vancomycin HCl (Vanco rx to dose) 1 ea DAILY PRN MISC Per rx protocol 08/23/18 12:30 09/22/18 12:29 Vancomycin HCl 750 mg/Sodium Chloride 275 ml @ 183.333 mls/hr Q24H IVPB 08/24/18 04:00 08/29/18 03:59 08/24/18 03:32 Warfarin Sodium (Coumadin per pharmacy) 1 ea DAILY PRN MISC Per rx protocol 08/23/18 08:15 09/22/18 08:14 Zinc Sulfate (Zinc Sulfate) 220 mg DAILY GT 08/23/18 09:00 09/22/18 08:59 08/24/18 09:28 Bonilla Lovett MD Aug 24, 2018 13:22
--- NOTE | 2018-08-24 13:57 | Infectious Diseases Prog Note ---
Assessment/Plan Assessment/Plan Assessment: Sepsis -2ry to likely PNA and UTI and bacteremia -CXR The study is a very limited because of rotation and obscuring structures. There may be mild interstitial edema present within the lungs. Heart is enlarged. The lung bases are obscured. -u/a wbc tnct, nit neg, leuk +3; ucx >100k GNR - -08/23 BCx 2/4 GNR Reported GNR bacteremia (at [place] -08/18 Bcx Pseudomonas 9pan S) Low grade fever; improving Leukocytosis; improving Hypernatremia Sacral decubitus Ulcer/OM- -s/p recent 10 weeks of IV zosyn COPD PNA Dementia PE/DVT GERD s/p GT Parkinson's disease TIA severe kyphosis [place] resident Plan: -Continue IV Vancomycin #2 and start Meropenem #2 (given recent prolonged ZOsyn ) pending cultures -08/23 Cefepime x1, Levaquin x1 -f/u cx -Monitor CBC/CMP, temperatures -f/u CXR -Repeat Bx x2 -aspiration precautions Thank you for this consultation. Will continue to follow along with you. Discussed with RN. Subjective Allergies: Coded Allergies: STRAWBERRY (Verified Allergy, Unknown, Rash, 06/29/13) COPIED FROM UNCODED SECTION VALSARTAN (Verified Allergy, Unknown, 03/09/11) Subjective afebrile >24hrs wbc imropving bacteremic GNRs Objective Vital Signs Last 24 Hour Vital Signs Date Time Temp Pulse Resp B/P (MAP) Pulse Ox O2 Delivery O2 Flow Rate FiO2 08/24/18 12:04 30.0 08/24/18 12:01 98.1 61 22 101/48 (65) 99 08/24/18 12:00 Bi-pap 08/24/18 11:52 58 08/24/18 08:15 59 27 100 Full Face 30 08/24/18 08:11 30.0 08/24/18 08:00 Bi-pap 08/24/18 08:00 98.1 75 28 95/60 (72) 100 08/24/18 08:00 65 08/24/18 07:00 79 26 100 Full Face 30 08/24/18 05:11 65 21 98 Full Face 30 08/24/18 04:00 98.7 64 27 127/71 (89) 100 08/24/18 04:00 Bi-pap 08/24/18 04:00 30.0 08/24/18 03:44 64 08/24/18 03:19 63 24 99 Facial 30 08/24/18 01:30 61 26 99 Full Face 30 08/24/18 00:00 98.1 62 26 109/57 (74) 100 08/24/18 00:00 Bi-pap 08/23/18 23:30 64 23 100 Full Face 30 08/23/18 23:30 62 08/23/18 21:30 61 25 100 Facial 30 08/23/18 20:00 98.1 65 22 109/68 (82) 98 08/23/18 20:00 30.0 08/23/18 19:30 62 19 99 Facial 30 08/23/18 19:09 Bi-pap 08/23/18 19:05 62 08/23/18 16:34 69 20 99 Facial 30 08/23/18 16:00 97.2 63 26 94/53 (67) 99 08/23/18 16:00 63 08/23/18 16:00 Bi-pap 08/23/18 16:00 30.0 08/23/18 14:41 68 20 99 Facial 30 Height (Feet): 5 Height (Inches): 5.00 Weight (Pounds): 135 Objective HEENT: Extraocular muscles intact. No lymphadenopathy noted. CARDIOVASCULAR: S1, S2. No rubs or gallops. PULMONARY: Mild upper rhonchi with basilar rales. ABDOMEN: Nondistended and nontender. EXTREMITIES: Trace edema bilaterally. Microbiology Date/Time Source Procedure Growth Status 08/23/18 03:50 Blood Blood Culture - Preliminary Resulted 08/23/18 03:30 Blood Blood Culture - Preliminary Resulted 08/23/18 04:00 Urine,Clean Catch Urine Culture - Preliminary Gram Negative Bacillus 1 Resulted 08/23/18 18:00 Rectum Received Laboratory Tests Test 08/23/18 16:24 08/24/18 04:00 Arterial Blood pH 7.484 (7.350-7.450) Arterial Blood Partial Pressure CO2 44.1 mmHg (35.0-45.0) Arterial Blood Partial Pressure O2 107.5 mmHg (75.0-100.0) H Arterial Blood HCO3 32.4 mmol/L (22.0-26.0) H Arterial Blood Oxygen Saturation 97.5 % (95-100) Arterial Blood Base Excess 8.1 (-2-2) H Cruzito Test Positive White Blood Count 25.5 K/UL (4.8-10.8) *H Red Blood Count 3.16 M/UL (4.20-5.40) L Hemoglobin 8.7 G/DL (12.0-16.0) L Hematocrit 28.5 % (37.0-47.0) L Mean Corpuscular Volume 90 FL (80-99) Mean Corpuscular Hemoglobin 27.4 PG (27.0-31.0) Mean Corpuscular Hemoglobin Concent 30.4 G/DL (32.0-36.0) L Red Cell Distribution Width 17.3 % (11.6-14.8) H Platelet Count 204 K/UL (150-450) Mean Platelet Volume 12.2 FL (6.5-10.1) H Neutrophils (%) (Auto) % (45.0-75.0) Lymphocytes (%) (Auto) % (20.0-45.0) Monocytes (%) (Auto) % (1.0-10.0) Eosinophils (%) (Auto) % (0.0-3.0) Basophils (%) (Auto) % (0.0-2.0) Differential Total Cells Counted 100 Neutrophils % (Manual) 91 % (45-75) H Lymphocytes % (Manual) 4 % (20-45) L Monocytes % (Manual) 4 % (1-10) Eosinophils % (Manual) 1 % (0-3) Basophils % (Manual) 0 % (0-2) Band Neutrophils 0 % (0-8) Platelet Estimate Adequate Platelet Morphology Normal Hypochromasia 2+ Anisocytosis 1+ Prothrombin Time 32.0 SEC (9.30-11.50) H Prothromb Time International Ratio 3.2 (0.9-1.1) H Sodium Level 158 MMOL/L (136-145) H Potassium Level 3.7 MMOL/L (3.5-5.1) Chloride Level 116 MMOL/L (98-107) H Carbon Dioxide Level 36 MMOL/L (21-32) H Anion Gap 6 mmol/L (5-15) Blood Urea Nitrogen 79 mg/dL (7-18) H Creatinine 0.9 MG/DL (0.55-1.30) Estimat Glomerular Filtration Rate mL/min (>60) Glucose Level 132 MG/DL (74-106) H Calcium Level 8.7 MG/DL (8.5-10.1) Current Medications Medications (Trade) Dose Ordered Sig/Marcel Route PRN Reason Start Time Stop Time Status Last Admin Dose Admin Atorvastatin Calcium (Lipitor) 20 mg BEDTIME GT 08/23/18 21:00 09/22/18 20:59 08/23/18 20:28 Carbidopa/Levodopa (Sinemet 25/250) 1 tab BID@0730,1230 GT 08/23/18 12:30 09/22/18 12:29 08/24/18 13:49 Chlorhexidine Gluconate (Yolanda-Hex 2%) 1 applic DAILY@2000 TOPIC 08/23/18 20:00 09/22/18 19:59 08/23/18 20:28 Dextrose 1,000 ml @ 75 mls/hr [id number] IV 08/23/18 08:12 09/22/18 08:11 08/24/18 13:44 Dextrose (Dextrose 50%) 25 ml Q30M PRN IV Hypoglycemia 08/23/18 08:15 09/22/18 08:14 Dextrose (Dextrose 50%) 50 ml Q30M PRN IV Hypoglycemia 08/23/18 08:15 09/22/18 08:14 EZETIMIBE (Zetia) 10 mg BEDTIME GT 08/23/18 21:00 09/22/18 20:59 08/23/18 20:28 Lansoprazole (Prevacid) 30 mg DAILY GT 08/23/18 09:00 09/22/18 08:59 08/24/18 09:26 Levothyroxine Sodium (Synthroid) 112 mcg DAILY@0630 GT 08/24/18 06:30 09/23/18 06:29 08/24/18 05:59 Meropenem 1 gm/ Sodium Chloride 55 ml @ 110 mls/hr Q12H IVPB 08/23/18 17:00 08/28/18 16:59 08/24/18 05:04 Mirtazapine (Remeron) 15 mg DAILY@1800 GT 08/23/18 18:00 09/22/18 17:59 08/23/18 17:24 Ropinirole HCl (Requip) 1 mg BID@0730,1230 GT 08/23/18 12:30 09/22/18 12:29 08/24/18 13:49 Vancomycin HCl (Vanco rx to dose) 1 ea DAILY PRN MISC Per rx protocol 08/23/18 12:30 09/22/18 12:29 Vancomycin HCl 750 mg/Sodium Chloride 275 ml @ 183.333 mls/hr Q24H IVPB 08/24/18 04:00 08/29/18 03:59 08/24/18 03:32 Warfarin Sodium (Coumadin per pharmacy) 1 ea DAILY PRN MISC Per rx protocol 08/23/18 08:15 09/22/18 08:14 Zinc Sulfate (Zinc Sulfate) 220 mg DAILY GT 08/23/18 09:00 09/22/18 08:59 08/24/18 09:28 Tasha Heart M.D. Aug 24, 2018 13:57
--- NOTE | 2018-08-24 15:20 | NUR ---
NURSE NOTES: Dr Lovett at bedside,changed Bipap settings to 18/8 same Fio2 30% and ordered for ABG in 2 hrs.
--- NOTE | 2018-08-24 15:34 | Surgery Progress Note ---
Surgery Progress Note Subjective Additional Comments no acute events family at bedside discussed care plan Objective Last 24 Hour Vital Signs Date Time Temp Pulse Resp B/P (MAP) Pulse Ox O2 Delivery O2 Flow Rate FiO2 08/24/18 12:36 67 23 99 Facial 30 08/24/18 12:04 30.0 08/24/18 12:01 98.1 61 22 101/48 (65) 99 08/24/18 12:00 Bi-pap 08/24/18 11:52 58 08/24/18 10:34 64 26 100 Facial 30 08/24/18 08:34 59 27 100 Facial 30 08/24/18 08:11 30.0 08/24/18 08:00 Bi-pap 08/24/18 08:00 98.1 75 28 95/60 (72) 100 08/24/18 08:00 65 08/24/18 07:00 79 26 100 Full Face 30 08/24/18 05:11 65 21 98 Full Face 30 08/24/18 04:00 98.7 64 27 127/71 (89) 100 08/24/18 04:00 Bi-pap 08/24/18 04:00 30.0 08/24/18 03:44 64 08/24/18 03:19 63 24 99 Facial 30 08/24/18 01:30 61 26 99 Full Face 30 08/24/18 00:00 98.1 62 26 109/57 (74) 100 08/24/18 00:00 Bi-pap 08/23/18 23:30 64 23 100 Full Face 30 08/23/18 23:30 62 08/23/18 21:30 61 25 100 Facial 30 08/23/18 20:00 98.1 65 22 109/68 (82) 98 08/23/18 20:00 30.0 08/23/18 19:30 62 19 99 Facial 30 08/23/18 19:09 Bi-pap 08/23/18 19:05 62 08/23/18 16:34 69 20 99 Facial 30 08/23/18 16:00 97.2 63 26 94/53 (67) 99 08/23/18 16:00 63 08/23/18 16:00 Bi-pap 08/23/18 16:00 30.0 I&O Intake and Output 08/23/18 08/24/18 19:00 07:00 Intake Total 1100.5 ml 1493.750 ml Output Total 600 ml 600 ml Balance 500.5 ml 893.750 ml Free Water 150 ml IV Total 685.5 ml 1193.750 ml Tube Feeding 265 ml 300 ml Output Urine Total 600 ml 600 ml # Bowel Movements 4 Dressing: saturated Wound: clean Cardiovascular: RSR Respiratory: clear Abdomen: soft, present bowel sounds, non-distended Extremities: no cyanosis Laboratory Tests Test 08/23/18 16:24 08/24/18 04:00 Arterial Blood pH 7.484 (7.350-7.450) Arterial Blood Partial Pressure CO2 44.1 mmHg (35.0-45.0) Arterial Blood Partial Pressure O2 107.5 mmHg (75.0-100.0) H Arterial Blood HCO3 32.4 mmol/L (22.0-26.0) H Arterial Blood Oxygen Saturation 97.5 % (95-100) Arterial Blood Base Excess 8.1 (-2-2) H Cruzito Test Positive White Blood Count 25.5 K/UL (4.8-10.8) *H Red Blood Count 3.16 M/UL (4.20-5.40) L Hemoglobin 8.7 G/DL (12.0-16.0) L Hematocrit 28.5 % (37.0-47.0) L Mean Corpuscular Volume 90 FL (80-99) Mean Corpuscular Hemoglobin 27.4 PG (27.0-31.0) Mean Corpuscular Hemoglobin Concent 30.4 G/DL (32.0-36.0) L Red Cell Distribution Width 17.3 % (11.6-14.8) H Platelet Count 204 K/UL (150-450) Mean Platelet Volume 12.2 FL (6.5-10.1) H Neutrophils (%) (Auto) % (45.0-75.0) Lymphocytes (%) (Auto) % (20.0-45.0) Monocytes (%) (Auto) % (1.0-10.0) Eosinophils (%) (Auto) % (0.0-3.0) Basophils (%) (Auto) % (0.0-2.0) Differential Total Cells Counted 100 Neutrophils % (Manual) 91 % (45-75) H Lymphocytes % (Manual) 4 % (20-45) L Monocytes % (Manual) 4 % (1-10) Eosinophils % (Manual) 1 % (0-3) Basophils % (Manual) 0 % (0-2) Band Neutrophils 0 % (0-8) Platelet Estimate Adequate Platelet Morphology Normal Hypochromasia 2+ Anisocytosis 1+ Prothrombin Time 32.0 SEC (9.30-11.50) H Prothromb Time International Ratio 3.2 (0.9-1.1) H Sodium Level 158 MMOL/L (136-145) H Potassium Level 3.7 MMOL/L (3.5-5.1) Chloride Level 116 MMOL/L (98-107) H Carbon Dioxide Level 36 MMOL/L (21-32) H Anion Gap 6 mmol/L (5-15) Blood Urea Nitrogen 79 mg/dL (7-18) H Creatinine 0.9 MG/DL (0.55-1.30) Estimat Glomerular Filtration Rate mL/min (>60) Glucose Level 132 MG/DL (74-106) H Calcium Level 8.7 MG/DL (8.5-10.1) Plan Problems: (1) Severe malnutrition Assessment & Plan: need nutritional optimization DAILY ESTIMATED NEEDS: Needs based on Wounds, pulmonary, 49kg 30-35 kcals/kg 9902-6971 total kcals 1.25-2 g protein/kg 61-98 g total protein 25-30ml/kcal mL/kg 1083-6021 total fluid mLs NUTRITION DIAGNOSIS: * Increased kcal/prot needs R/T wound healing, as evidenced by multiple wounds per photo- refer to wound eval, including stage 4 sacral wound. * Swallowing difficulty R/T dysphagia as evidenced by pt is GT dependent, currently on Bipap. CURRENT TF: Glucerna 1.5 @65ml/hr continuous ENTERAL NUTRITION RECOMMENDATIONS: Glucerna 1.5 @50ml/hr x22 hrs to provide 1100ml, 1650kcal, 91g prot, 835ml free water * As medically able, start Glucerna 1.5 @20ml/hr for 6 hrs. Advance as tolerated 10ml/hr q4-6 hrs to goal * Hold 1 hr before and after Synthroid med. * HOB over 30 degrees/ water flush per MD. ----- ALTERNATIVELY IF PT IS ON BIPAP FOR EXTENDED TIME, REC LIMITED 12 HR TF RUN TIME: -> Glucerna 1.5 @82ml/hr x12 hrs to provide 984ml, 1476 kcal, 81g pro, 747ml free H2O. -> 82ml/hr= est 5.5 tablespoons of tube feed per hour -> TF at goal meets 100% est kcal and pro needs. ADDITIONAL RECOMMENDATIONS: * RE-calibrated bedscale wt-> now w/ added P200 mattress * Wound healing: add Larry 1pkt BID + MVI w/ min daily + Vit C 250mg BID + Continue ZnSO4 220mg x10 days * Rec to increase water flushes totalling 600ml free fluid/day when off IVF * Weekly calibrated bed scale wts . (2) Failure to thrive (3) Decubitus ulcer of sacral region, stage 4 Assessment & Plan: Pt presented on admission with multiple pressure injuries.Scattered areas of non-blanchable erythema noted to R earlobe. L earlobe is pink and blanchable. #2 areas of non-blanching erythema noted to L scapula(proximal)-(L)2cm x (W) 2.5cm,(Distal)-(L)1cm x(W)0.6cm. Non-blanchable erythema noted to L thoracic(L)1.5cm x (W)2cm. Cat 3 skin tear with 100% flap loss noted to Medial L antecubital (L)0.6cm x (W) 0.5cm. Full thickness sacral pressure injury with undermining noted (L)7cm x (W)7.5cm x (D)0.5cm ,undermining clockwise 12-12 by 5.2cm @12o'clock. [place] granulation at base of wound .Loose edges ,(+) epibole noted. Periwound is indurated with additional skin breakdown noted periwound -Clockwise at 6o'clock an area of soft necrosis that is partially opened but dry noted (L)3.5cm x (W)1.8cm , an area that is fluctuant and maroon in colour noted at 5o'clock (L)2.5cm x (W) 2cm.DTR at bedside and was informed likelihood of these two areas becoming open wounds secondary to already compromised skin from sacral wound and that that these areas are over undermined areas of sacral wound..Both ischial areas are pink and blanchable. Pt noted to have developed erythema to L scapula and L hip and L trochanter within few minutes of being on L side for staff to assess wounds. Dtr also educated pt is at high risks secondary to poor tissue perfusion and comorbidities. Pt noted to be wearing soft heel raiser boots .Upon removal of heel raiser boots pt noted to have DTPI's to R and L posterior tibias.L tibia has an elongated area that is maroon in colour and base of wound is indurated(L)11.5cm x (W)2cm. R tibia DTPI. Base of wound is maroon and indurated (L)1.2cm x (W)0.5cm. scattered areas of non-blanching erythema periwound Dtr informed it was in best interest of pt to discontinue heel raiser boots and have both lower ext off- loaded with pillows with heels floated. Dtr agreed with staff. R heel and plantar R heel fluctuant and maroon in colour (L)4.5cm x (W)7.5cm. L heel fluctuant but blanchable. cavilon Skin Barrier applied with Optifoam drsgs to all bony prominences such as both clavicles,both scapulae,bilat elbows ,both trochanter/ hips, and kyphosis to minimize skin breakdown. Dtr informed pt will be transferred to an Air fluidized mattress pending delivery today.Pt positioned with pillows. Tx.Plan: Cleanse Sacral wound with Saline.Apply Hydrogel. Layer Calcium Alginate sheet with attention to undermined borders of wound. Apply Triad paste periwound. Cover with Optifoam drsg Daily and prn. Apply Cav[place] Skin Barrier to bony prominences. Cover each area with Optifoam drsgs. Change every 7 days and PRN. Apply Cavilon Skin Barrier to R and L tibia. Cover each wound with Optifoam drsgs. Change every 7 days and prn. Apply Cav[place] Skin Barrier to R heel DTPI. Cover with Optifoam drsg. Change every 7 days and PRN. Clean skin tear medial L antecubital. (leave Versatel in place)Apply Silvasorb gel. Cover with Optifoam drsg every 7 days and prn. Air Fluidized mattress. Reposition at least every 2hours or as tolerated. Place pillow between knees .Off-load heels with pillows. 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
[2018-08-24 16:00] VITALS: BP 139/65
--- NOTE | 2018-08-24 16:37 | NUR ---
NURSE NOTES: Called Dr Lovett re results of ABG.
--- NOTE | 2018-08-24 18:53 | NUR ---
RESPIRATORY NOTE: Received pt on BiPAP 24/09, backup rate 12, 30%. BiPAP settings previously changed by MD Bony. Pt on a Facial Mask, skin intact, no redness/breakdowns noted. Gxbyfky-x-Pzo applied on pt's [place]/cheeks to prevent any irritations. Pt obtunded. B/S hiral. diminished. BiPAP plugged into red outlet, alarms on & audible. Pt in no apparent distress at this time. Will continue plan of care.
--- NOTE | 2018-08-24 19:15 | NUR ---
HAND-OFF: Report given to Noa Thompson RN.
--- NOTE | 2018-08-24 19:42 | NUR ---
NURSE NOTES: Received report from ALIZE Crockett. patient seen in bed in semi dolan position. On Bipap with setting of 18/8, fi02 30%, sp02 96%. Patient is non verbal. no S/Sx of pain is noted via FLACC. Noted PICC line to left arm and is intact. On IVF of D5W at 75cc. On GT with feeding of glucerna 1.5 at 65cc/hr. Bed is in lowest position. Call light is within easy reach while in bed. will continue to monitor.
[2018-08-24 20:00] VITALS: BP 103/67
[2018-08-24] MEDS: Atorvastatin 20mg tab GT SCH (20:22)
[2018-08-24] MEDS: Dyna-Hex 2% Top Sol 2oz TOPIC SCH (20:22)
[2018-08-25] VITALS: BP 110/64
[2018-08-25] MEDS: Vancomycin 750mg/NS 275ml IVPB SCH ×2 (03:25)
[2018-08-25 04:00] VITALS: BP 118/63
[2018-08-25] MEDS: Meropenem 1 GM in NS 55 ML IVPB SCH ×2 (04:27→17:14)
[2018-08-25 04:45] LABS: BASOPHILS % (AUTO) 0.5 % (0.0-2.0); EOSINOPHILS % (AUTO) 3.9 % (0.0-3.0); HEMATOCRIT 26.4 % (37.0-47.0); LYMPHOCYTES % (AUTO) 7.3 % (20.0-45.0); MEAN CORPUSCULAR VOLUME 90 FL (80-99); MONOCYTES % (AUTO) 5.3 % (1.0-10.0); NEUTROPHILS % (AUTO) 83.1 % (45.0-75.0); PLATELET COUNT 171 K/UL (150-450); RED BLOOD COUNT 2.95 M/UL (4.20-5.40); RED CELL DISTRIBUTION WIDTH 17.5 % (11.6-14.8); WHITE BLOOD COUNT 15.5 K/UL (4.8-10.8)
[2018-08-25 05:01] LABS: ANION GAP 4 mmol/L (5-15); BLOOD UREA NITROGEN 62 mg/dL (7-18); CALCIUM 8.6 MG/DL (8.5-10.1); CARBON DIOXIDE 33 MMOL/L (21-32); CHLORIDE 115 MMOL/L (98-107); CREATININE 0.7 MG/DL (0.55-1.30); POTASSIUM 3.9 MMOL/L (3.5-5.1); SODIUM 152 MMOL/L (136-145)
[2018-08-25 05:04] LABS: INR 3.4 (0.9-1.1)
--- NOTE | 2018-08-25 07:09 | NUR ---
HAND-OFF: Report given to Mylene Dotson RN.
--- NOTE | 2018-08-25 07:15 | NUR ---
NURSE NOTES: Report received from Noa Thompson RN.Pt asleep noted no resp distress on Bipap 18/8 Fio2 30%,no signs of pain or discomfort.S- Taco when asleep,GTF Glucerna 1.5 at 65 ml/hr ,no residual noted,HOB elevated,Joyner cath in placed draining yellow urine IV site to FERNANDEZ PICC line intact with IVF D5W at 75 ml/hr,skin warm and dry with multiple skin break,SR up x2 bed lock in lowest position,will continue with plans of care.
--- NOTE | 2018-08-25 07:26 | Nephrology Progress Note ---
Assessment/Plan Assessment/Plan: A/P 1) Hypernatremia- improved, Na down to 152 - continue D5W until Na <146 2) Sepsis- G- bacteremia- replaced quinn and PICC line - Abx per ID 3) Resp FL- on BiPAP. Mgmt per pulm 4) DVT- on coumadin, INR goal 2-3 5) Malnutrition- TFs 6) Sacral Decub- chronic, continue wound care Subjective Date patient seen: Aug 25, 2018 Time patient seen: 07:24 ROS Limited/Unobtainable: Yes Allergies: Coded Allergies: STRAWBERRY (Verified Allergy, Unknown, Rash, 06/29/13) COPIED FROM UNCODED SECTION VALSARTAN (Verified Allergy, Unknown, 03/09/11) Subjective Patient on BiPAP. In no overt distress Objective Last 24 Hour Vital Signs Date Time Temp Pulse Resp B/P (MAP) Pulse Ox O2 Delivery O2 Flow Rate FiO2 08/25/18 04:58 62 22 98 Facial 30 08/25/18 04:00 97.7 57 20 118/63 (81) 99 08/25/18 04:00 30.0 08/25/18 04:00 Bi-pap 08/25/18 03:26 56 08/25/18 02:53 58 21 99 Facial 30 08/25/18 00:55 63 22 98 Facial 30 08/25/18 00:00 97.8 60 25 110/64 (79) 99 08/25/18 00:00 Bi-pap 08/24/18 23:33 57 08/24/18 22:55 58 25 98 Facial 30 08/24/18 21:14 59 24 98 Facial 30 08/24/18 20:00 97.9 58 21 103/67 (79) 100 08/24/18 20:00 30.0 08/24/18 20:00 Bi-pap 08/24/18 19:12 65 08/24/18 18:50 59 22 100 Facial 30 08/24/18 17:29 61 24 99 Facial 30 08/24/18 16:00 97.2 59 20 139/65 (89) 99 08/24/18 16:00 30.0 08/24/18 16:00 60 08/24/18 16:00 Bi-pap 08/24/18 15:29 64 26 99 Facial 30 08/24/18 12:36 67 23 99 Facial 30 08/24/18 12:04 30.0 08/24/18 12:01 98.1 61 22 101/48 (65) 99 08/24/18 12:00 Bi-pap 08/24/18 11:52 58 08/24/18 10:34 64 26 100 Facial 30 08/24/18 08:34 59 27 100 Facial 30 08/24/18 08:11 30.0 08/24/18 08:00 Bi-pap 08/24/18 08:00 98.1 75 28 95/60 (72) 100 08/24/18 08:00 65 Intake and Output 08/24/18 08/25/18 19:00 07:00 Intake Total 1330 ml 1930.000 ml Output Total 600 ml Balance 730 ml 1930.000 ml Free Water 200 ml 200 ml IV Total 655 ml 1080.000 ml Tube Feeding 415 ml 650 ml Other 60 ml Output Urine Total 600 ml # Bowel Movements 4 1 Laboratory Tests 08/24/18 15:49: Arterial Blood pH 7.460H, Arterial Blood Partial Pressure CO2 45.4H, Arterial Blood Partial Pressure O2 109.8H, Arterial Blood HCO3 31.7H, Arterial Blood Oxygen Saturation 97.6, Arterial Blood Base Excess 7.2H, Cruzito Test Positive 08/25/18 03:50: White Blood Count 15.5H, Red Blood Count 2.95L, Hemoglobin 8.0L, Hematocrit 26.4L, Mean Corpuscular Volume 90, Mean Corpuscular Hemoglobin 27.2, Mean Corpuscular Hemoglobin Concent 30.3L, Red Cell Distribution Width 17.5H, Platelet Count 171, Mean Platelet Volume 12.0H, Neutrophils (%) (Auto) 83.1H, Lymphocytes (%) (Auto) 7.3L, Monocytes (%) (Auto) 5.3, Eosinophils (%) (Auto) 3.9H, Basophils (%) (Auto) 0.5, Prothrombin Time 33.5H, Prothromb Time International Ratio 3.4H, Sodium Level 152H, Potassium Level 3.9, Chloride Level 115H, Carbon Dioxide Level 33H, Anion Gap 4L, Blood Urea Nitrogen 62H, Creatinine 0.7, Estimat Glomerular Filtration Rate , Glucose Level 138H, Calcium Level 8.6 Height (Feet): 5 Height (Inches): 5.00 Weight (Pounds): 135 General Appearance: no apparent distress EENT: normal ENT inspection Neck: normal alignment, supple Cardiovascular: normal rate, regular rhythm Respiratory/Chest: rhonchi - bilaterally Abdomen: non tender, soft Edema: no edema noted Arm (L), no edema noted Arm (R), no edema noted Leg (L), no edema noted Leg (R), no edema noted Pedal (L), no edema noted Pedal (R), no edema noted Generalized Jeremiah Mclaughlin MD Aug 25, 2018 07:26
--- NOTE | 2018-08-25 07:30 | NUR ---
RESPIRATORY NOTE:Received pt on bipap 18/8 fio2 30% with no s/s of distress. Pt has protective gel on face and no signs of redness and skin breakdown. Will cont. to monitor pt.
--- NOTE | 2018-08-25 07:54 | NUR ---
NURSE NOTES: Dr Mclaughlin at bedside,with orders.
[2018-08-25 08:00] VITALS: BP 125/54
[2018-08-25] MEDS: Levodopa/Carbidopa 25/250 tab GT SCH ×2 (08:26→12:15)
[2018-08-25] MEDS: Zinc Sulfate 220mg cap GT SCH (08:26)
--- NOTE | 2018-08-25 10:45 | Pulmonology Progress Note ---
Assessment/Plan Assessment/Plan Problem List: 1. Acute hypoxemic respiratory failure 2. Pneumonia 3. UTI 4. Sepsis 5. Dementia 6. hx osteomyelitis 7. Dysphagia s/p PEG Plan: -ABG on adjusted BiPAP settings in AM -BiPAP 15/ for now -duonebs -abx per ID -f/u cultures -cont tube feeds Subjective ROS Limited/Unobtainable: Yes Interval Events: ABGs done showing respiratory alkalosis. WBC down Allergies: Coded Allergies: STRAWBERRY (Verified Allergy, Unknown, Rash, 06/29/13) COPIED FROM UNCODED SECTION VALSARTAN (Verified Allergy, Unknown, 03/09/11) Objective Last 24 Hour Vital Signs Date Time Temp Pulse Resp B/P (MAP) Pulse Ox O2 Delivery O2 Flow Rate FiO2 08/25/18 10:31 60 21 99 Facial 30 08/25/18 09:10 62 23 99 Facial 30 08/25/18 08:08 30.0 08/25/18 08:00 Bi-pap 08/25/18 08:00 97.7 59 22 125/54 (77) 100 08/25/18 08:00 58 08/25/18 07:30 61 22 97 Facial 30 08/25/18 04:58 62 22 98 Facial 30 08/25/18 04:00 97.7 57 20 118/63 (81) 99 08/25/18 04:00 30.0 08/25/18 04:00 Bi-pap 08/25/18 03:26 56 08/25/18 02:53 58 21 99 Facial 30 08/25/18 00:55 63 22 98 Facial 30 08/25/18 00:00 97.8 60 25 110/64 (79) 99 08/25/18 00:00 Bi-pap 08/24/18 23:33 57 08/24/18 22:55 58 25 98 Facial 30 08/24/18 21:14 59 24 98 Facial 30 08/24/18 20:00 97.9 58 21 103/67 (79) 100 08/24/18 20:00 30.0 08/24/18 20:00 Bi-pap 08/24/18 19:12 65 08/24/18 18:50 59 22 100 Facial 30 08/24/18 17:29 61 24 99 Facial 30 08/24/18 16:00 97.2 59 20 139/65 (89) 99 08/24/18 16:00 30.0 08/24/18 16:00 60 08/24/18 16:00 Bi-pap 08/24/18 15:29 64 26 99 Facial 30 08/24/18 12:36 67 23 99 Facial 30 08/24/18 12:04 30.0 08/24/18 12:01 98.1 61 22 101/48 (65) 99 08/24/18 12:00 Bi-pap 08/24/18 11:52 58 Intake and Output 08/24/18 08/25/18 19:00 07:00 Intake Total 1330 ml 1930.000 ml Output Total 600 ml Balance 730 ml 1930.000 ml Free Water 200 ml 200 ml IV Total 655 ml 1080.000 ml Tube Feeding 415 ml 650 ml Other 60 ml Output Urine Total 600 ml # Bowel Movements 4 1 General Appearance: no acute distress Respiratory/Chest: lungs clear Cardiovascular: normal rate, regular rhythm Abdomen: soft, non tender Extremities: no edema Microbiology Date/Time Source Procedure Growth Status 08/23/18 03:50 Blood Blood Culture - Preliminary Gram Negative Bacillus 1 Resulted 08/23/18 03:30 Blood Blood Culture - Preliminary Gram Negative Bacillus 1 Resulted 08/24/18 11:00 Other(Specify in comment) Catheter Tip Culture - Preliminary NO GROWTH Resulted 08/24/18 18:00 Sputum Induced Gram Stain - Final Resulted 08/24/18 18:00 Sputum Induced Sputum Culture - Preliminary NO GROWTH AFTER 24 HOURS Resulted 08/23/18 04:00 Urine,Clean Catch Urine Culture - Final Proteus Mirabilis Complete 08/23/18 18:00 Rectum Received Laboratory Tests 08/24/18 15:49: Arterial Blood pH 7.460H, Arterial Blood Partial Pressure CO2 45.4H, Arterial Blood Partial Pressure O2 109.8H, Arterial Blood HCO3 31.7H, Arterial Blood Oxygen Saturation 97.6, Arterial Blood Base Excess 7.2H, Cruzito Test Positive 08/25/18 03:50: White Blood Count 15.5H, Red Blood Count 2.95L, Hemoglobin 8.0L, Hematocrit 26.4L, Mean Corpuscular Volume 90, Mean Corpuscular Hemoglobin 27.2, Mean Corpuscular Hemoglobin Concent 30.3L, Red Cell Distribution Width 17.5H, Platelet Count 171, Mean Platelet Volume 12.0H, Neutrophils (%) (Auto) 83.1H, Lymphocytes (%) (Auto) 7.3L, Monocytes (%) (Auto) 5.3, Eosinophils (%) (Auto) 3.9H, Basophils (%) (Auto) 0.5, Prothrombin Time 33.5H, Prothromb Time International Ratio 3.4H, Sodium Level 152H, Potassium Level 3.9, Chloride Level 115H, Carbon Dioxide Level 33H, Anion Gap 4L, Blood Urea Nitrogen 62H, Creatinine 0.7, Estimat Glomerular Filtration Rate , Glucose Level 138H, Calcium Level 8.6 08/25/18 07:26: Arterial Blood pH 7.494H, Arterial Blood Partial Pressure CO2 43.3, Arterial Blood Partial Pressure O2 99.8, Arterial Blood HCO3 32.6H, Arterial Blood Oxygen Saturation 97.4, Arterial Blood Base Excess 8.5H, Cruzito Test Positive Current Medications Medications (Trade) Dose Ordered Sig/Marcel Route PRN Reason Start Time Stop Time Status Last Admin Dose Admin Atorvastatin Calcium (Lipitor) 20 mg BEDTIME GT 08/23/18 21:00 09/22/18 20:59 08/24/18 20:22 Carbidopa/Levodopa (Sinemet 25/250) 1 tab BID@0730,1230 GT 08/23/18 12:30 09/22/18 12:29 08/25/18 08:26 Chlorhexidine Gluconate (Yolanda-Hex 2%) 1 applic DAILY@2000 TOPIC 08/23/18 20:00 09/22/18 19:59 08/24/18 20:22 Dextrose 1,000 ml @ 75 mls/hr [id number] IV 08/23/18 08:12 09/22/18 08:11 08/25/18 00:38 Dextrose (Dextrose 50%) 25 ml Q30M PRN IV Hypoglycemia 08/23/18 08:15 09/22/18 08:14 Dextrose (Dextrose 50%) 50 ml Q30M PRN IV Hypoglycemia 08/23/18 08:15 09/22/18 08:14 EZETIMIBE (Zetia) 10 mg BEDTIME GT 08/23/18 21:00 09/22/18 20:59 08/24/18 20:22 Lansoprazole (Prevacid) 30 mg DAILY GT 08/23/18 09:00 09/22/18 08:59 08/25/18 08:26 Levothyroxine Sodium (Synthroid) 112 mcg DAILY@0630 GT 08/24/18 06:30 09/23/18 06:29 08/25/18 05:42 Meropenem 1 gm/ Sodium Chloride 55 ml @ 110 mls/hr Q12H IVPB 08/23/18 17:00 08/28/18 16:59 08/25/18 04:27 Mirtazapine (Remeron) 15 mg DAILY@1800 GT 08/23/18 18:00 09/22/18 17:59 08/24/18 17:30 Ropinirole HCl (Requip) 1 mg BID@0730,1230 GT 08/23/18 12:30 09/22/18 12:29 08/25/18 08:25 Vancomycin HCl (Vanco rx to dose) 1 ea DAILY PRN MISC Per rx protocol 08/23/18 12:30 09/22/18 12:29 Vancomycin HCl 750 mg/Sodium Chloride 275 ml @ 183.333 mls/hr Q24H IVPB 08/24/18 04:00 08/29/18 03:59 08/25/18 03:25 Warfarin Sodium (Coumadin per pharmacy) 1 ea DAILY PRN MISC Per rx protocol 08/23/18 08:15 09/22/18 08:14 Zinc Sulfate (Zinc Sulfate) 220 mg DAILY GT 08/23/18 09:00 09/22/18 08:59 08/25/18 08:26 Bonilla Lovett MD Aug 25, 2018 10:45
--- NOTE | 2018-08-25 11:00 | NUR ---
NURSE NOTES: Dr Lovett at bedside,changed Bipap settings to 15/6 same Fio2 30% and at HS and PRN ,Ordered to start pt on venti mask to keep O2 sat above 90-94%. Gibson Amin notified of such order.
[2018-08-25 12:00] VITALS: BP 108/57
--- NOTE | 2018-08-25 12:35 | NUR ---
RESPIRATORY NOTE:Placed pt on venti mask 30% per Dr. Lovett orders. No s/s of distress. Will cont. to monitor pt status.
--- NOTE | 2018-08-25 14:35 | NUR ---
RESPIRATORY NOTE:Titrated pt to 3L n/c from venti mask. Pt has no s/s of distress. will cont. to monitor pt.
--- NOTE | 2018-08-25 14:39 | Surgery Progress Note ---
Surgery Progress Note Subjective Additional Comments no acute events exam stable unchanged. Objective Last 24 Hour Vital Signs Date Time Temp Pulse Resp B/P (MAP) Pulse Ox O2 Delivery O2 Flow Rate FiO2 08/25/18 12:35 72 22 96 08/25/18 12:00 62 08/25/18 12:00 97.0 66 17 108/57 (74) 96 08/25/18 12:00 Bi-pap 08/25/18 12:00 30.0 08/25/18 10:31 60 21 99 Facial 30 08/25/18 09:10 62 23 99 Facial 30 08/25/18 08:08 30.0 08/25/18 08:00 Bi-pap 08/25/18 08:00 97.7 59 22 125/54 (77) 100 08/25/18 08:00 58 08/25/18 07:30 61 22 97 Facial 30 08/25/18 04:58 62 22 98 Facial 30 08/25/18 04:00 97.7 57 20 118/63 (81) 99 08/25/18 04:00 30.0 08/25/18 04:00 Bi-pap 08/25/18 03:26 56 08/25/18 02:53 58 21 99 Facial 30 08/25/18 00:55 63 22 98 Facial 30 08/25/18 00:00 97.8 60 25 110/64 (79) 99 08/25/18 00:00 Bi-pap 08/24/18 23:33 57 08/24/18 22:55 58 25 98 Facial 30 08/24/18 21:14 59 24 98 Facial 30 08/24/18 20:00 97.9 58 21 103/67 (79) 100 08/24/18 20:00 30.0 08/24/18 20:00 Bi-pap 08/24/18 19:12 65 08/24/18 18:50 59 22 100 Facial 30 08/24/18 17:29 61 24 99 Facial 30 08/24/18 16:00 97.2 59 20 139/65 (89) 99 08/24/18 16:00 30.0 08/24/18 16:00 60 08/24/18 16:00 Bi-pap 08/24/18 15:29 64 26 99 Facial 30 I&O Intake and Output 08/24/18 08/25/18 19:00 07:00 Intake Total 1330 ml 2070.000 ml Output Total 600 ml Balance 730 ml 2070.000 ml Free Water 200 ml 200 ml IV Total 655 ml 1155.000 ml Tube Feeding 415 ml 715 ml Other 60 ml Output Urine Total 600 ml # Bowel Movements 4 1 Dressing: saturated Wound: other Drains: other Cardiovascular: RSR Respiratory: decreased breath sounds Abdomen: soft, present bowel sounds, non-distended Extremities: no cyanosis, other Laboratory Tests Test 08/24/18 15:49 08/25/18 03:50 08/25/18 07:26 Arterial Blood pH 7.460 (7.350-7.450) 7.494 (7.350-7.450) Arterial Blood Partial Pressure CO2 45.4 mmHg (35.0-45.0) H 43.3 mmHg (35.0-45.0) Arterial Blood Partial Pressure O2 109.8 mmHg (75.0-100.0) H 99.8 mmHg (75.0-100.0) Arterial Blood HCO3 31.7 mmol/L (22.0-26.0) H 32.6 mmol/L (22.0-26.0) H Arterial Blood Oxygen Saturation 97.6 % (95-100) 97.4 % (95-100) Arterial Blood Base Excess 7.2 (-2-2) H 8.5 (-2-2) H Cruzito Test Positive Positive White Blood Count 15.5 K/UL (4.8-10.8) H Red Blood Count 2.95 M/UL (4.20-5.40) L Hemoglobin 8.0 G/DL (12.0-16.0) L Hematocrit 26.4 % (37.0-47.0) L Mean Corpuscular Volume 90 FL (80-99) Mean Corpuscular Hemoglobin 27.2 PG (27.0-31.0) Mean Corpuscular Hemoglobin Concent 30.3 G/DL (32.0-36.0) L Red Cell Distribution Width 17.5 % (11.6-14.8) H Platelet Count 171 K/UL (150-450) Mean Platelet Volume 12.0 FL (6.5-10.1) H Neutrophils (%) (Auto) 83.1 % (45.0-75.0) H Lymphocytes (%) (Auto) 7.3 % (20.0-45.0) L Monocytes (%) (Auto) 5.3 % (1.0-10.0) Eosinophils (%) (Auto) 3.9 % (0.0-3.0) H Basophils (%) (Auto) 0.5 % (0.0-2.0) Prothrombin Time 33.5 SEC (9.30-11.50) H Prothromb Time International Ratio 3.4 (0.9-1.1) H Sodium Level 152 MMOL/L (136-145) H Potassium Level 3.9 MMOL/L (3.5-5.1) Chloride Level 115 MMOL/L (98-107) H Carbon Dioxide Level 33 MMOL/L (21-32) H Anion Gap 4 mmol/L (5-15) L Blood Urea Nitrogen 62 mg/dL (7-18) H Creatinine 0.7 MG/DL (0.55-1.30) Estimat Glomerular Filtration Rate mL/min (>60) Glucose Level 138 MG/DL (74-106) H Calcium Level 8.6 MG/DL (8.5-10.1) Plan Problems: (1) Severe malnutrition Assessment & Plan: need nutritional optimization DAILY ESTIMATED NEEDS: Needs based on Wounds, pulmonary, 49kg 30-35 kcals/kg 9032-2132 total kcals 1.25-2 g protein/kg 61-98 g total protein 25-30ml/kcal mL/kg 9339-8754 total fluid mLs NUTRITION DIAGNOSIS: * Increased kcal/prot needs R/T wound healing, as evidenced by multiple wounds per photo- refer to wound eval, including stage 4 sacral wound. * Swallowing difficulty R/T dysphagia as evidenced by pt is GT dependent, currently on Bipap. CURRENT TF: Glucerna 1.5 @65ml/hr continuous ENTERAL NUTRITION RECOMMENDATIONS: Glucerna 1.5 @50ml/hr x22 hrs to provide 1100ml, 1650kcal, 91g prot, 835ml free water * As medically able, start Glucerna 1.5 @20ml/hr for 6 hrs. Advance as tolerated 10ml/hr q4-6 hrs to goal * Hold 1 hr before and after Synthroid med. * HOB over 30 degrees/ water flush per MD. ----- ALTERNATIVELY IF PT IS ON BIPAP FOR EXTENDED TIME, REC LIMITED 12 HR TF RUN TIME: -> Glucerna 1.5 @82ml/hr x12 hrs to provide 984ml, 1476 kcal, 81g pro, 747ml free H2O. -> 82ml/hr= est 5.5 tablespoons of tube feed per hour -> TF at goal meets 100% est kcal and pro needs. ADDITIONAL RECOMMENDATIONS: * RE-calibrated bedscale wt-> now w/ added P200 mattress * Wound healing: add Larry 1pkt BID + MVI w/ min daily + Vit C 250mg BID + Continue ZnSO4 220mg x10 days * Rec to increase water flushes totalling 600ml free fluid/day when off IVF * Weekly calibrated bed scale wts . (2) Failure to thrive (3) Decubitus ulcer of sacral region, stage 4 Assessment & Plan: Pt presented on admission with multiple pressure injuries.Scattered areas of non-blanchable erythema noted to R earlobe. L earlobe is pink and blanchable. #2 areas of non-blanching erythema noted to L scapula(proximal)-(L)2cm x (W) 2.5cm,(Distal)-(L)1cm x(W)0.6cm. Non-blanchable erythema noted to L thoracic(L)1.5cm x (W)2cm. Cat 3 skin tear with 100% flap loss noted to Medial L antecubital (L)0.6cm x (W) 0.5cm. Full thickness sacral pressure injury with undermining noted (L)7cm x (W)7.5cm x (D)0.5cm ,undermining clockwise 12-12 by 5.2cm @12o'clock. Barney granulation at base of wound .Loose edges ,(+) epibole noted. Periwound is indurated with additional skin breakdown noted periwound -Clockwise at 6o'clock an area of soft necrosis that is partially opened but dry noted (L)3.5cm x (W)1.8cm , an area that is fluctuant and maroon in colour noted at 5o'clock (L)2.5cm x (W) 2cm.DTR at bedside and was informed likelihood of these two areas becoming open wounds secondary to already compromised skin from sacral wound and that that these areas are over undermined areas of sacral wound..Both ischial areas are pink and blanchable. Pt noted to have developed erythema to L scapula and L hip and L trochanter within few minutes of being on L side for staff to assess wounds. Dtr also educated pt is at high risks secondary to poor tissue perfusion and comorbidities. Pt noted to be wearing soft heel raiser boots .Upon removal of heel raiser boots pt noted to have DTPI's to R and L posterior tibias.L tibia has an elongated area that is maroon in colour and base of wound is indurated(L)11.5cm x (W)2cm. R tibia DTPI. Base of wound is maroon and indurated (L)1.2cm x (W)0.5cm. scattered areas of non-blanching erythema periwound Dtr informed it was in best interest of pt to discontinue heel raiser boots and have both lower ext off- loaded with pillows with heels floated. Dtr agreed with staff. R heel and plantar R heel fluctuant and maroon in colour (L)4.5cm x (W)7.5cm. L heel fluctuant but blanchable. cavilon Skin Barrier applied with Optifoam drsgs to all bony prominences such as both clavicles,both scapulae,bilat elbows ,both trochanter/ hips, and kyphosis to minimize skin breakdown. Dtr informed pt will be transferred to an Air fluidized mattress pending delivery today.Pt positioned with pillows. Tx.Plan: Cleanse Sacral wound with Saline.Apply Hydrogel. Layer Calcium Alginate sheet with attention to undermined borders of wound. Apply Triad paste periwound. Cover with Optifoam drsg Daily and prn. Apply Cavilon Skin Barrier to bony prominences. Cover each area with Optifoam drsgs. Change every 7 days and PRN. Apply Cavilon Skin Barrier to R and L tibia. Cover each wound with Optifoam drsgs. Change every 7 days and prn. Apply Cavilon Skin Barrier to R heel DTPI. Cover with Optifoam drsg. Change every 7 days and PRN. Clean skin tear medial L antecubital. (leave Versatel in place)Apply Silvasorb gel. Cover with Optifoam drsg every 7 days and prn. Air Fluidized mattress. Reposition at least every 2hours or as tolerated. Place pillow between knees .Off-load heels with pillows. 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
--- NOTE | 2018-08-25 15:00 | NUR ---
NURSE NOTES: Pt stable no resp distress presented,on 3L NC at this time O2 sat 98%-100%,family member at bedside.will continue to monitor pt's O2 sat.
--- NOTE | 2018-08-25 15:40 | Infectious Diseases Prog Note ---
Assessment/Plan Assessment/Plan Assessment: Sepsis -2ry to likely PNA and UTI and bacteremia -CXR The study is a very limited because of rotation and obscuring structures. There may be mild interstitial edema present within the lungs. Heart is enlarged. The lung bases are obscured. -u/a wbc tnct, nit neg, leuk +3; ucx >100k P. mirabilis (R Cipro/levaquin, Nitrofurantoin) - -08/23 BCx 2/4 GNR; 08/24 Bcx p -sp cx normal [place] (to date) Reported GNR bacteremia (at [place] -08/18 Bcx Pseudomonas 9pan S) Low grade fever; improving Leukocytosis; improving Hypernatremia Sacral decubitus Ulcer/OM- -s/p recent 10 weeks of IV zosyn COPD PNA Dementia PE/DVT GERD s/p GT Parkinson's disease TIA severe kyphosis IN resident PICC line ([employer]GER)- s/p removal 08/24 -cath tip cx p Plan: -D/c empiric IV Vancomycin #3 -Continue empiric Meropenem #3 (given recent prolonged ZOsyn) pending ID and sensei GNR BCx -08/23 Cefepime x1, Levaquin x1 -f/u cx -Monitor CBC/CMP, temperatures -f/u CXR -f/u Repeat Bx x2 -aspiration precautions Thank you for this consultation. Will continue to follow along with you. Discussed with RN. Subjective Allergies: Coded Allergies: STRAWBERRY (Verified Allergy, Unknown, Rash, 06/29/13) COPIED FROM UNCODED SECTION VALSARTAN (Verified Allergy, Unknown, 03/09/11) Subjective afebrile >48hrs wbc imropving bacteremic GNRs repeat Bcx p Objective Vital Signs Last 24 Hour Vital Signs Date Time Temp Pulse Resp B/P (MAP) Pulse Ox O2 Delivery O2 Flow Rate FiO2 08/25/18 14:35 99 Nasal Cannula 3.0 32 08/25/18 12:35 72 22 96 08/25/18 12:00 62 08/25/18 12:00 97.0 66 17 108/57 (74) 96 08/25/18 12:00 Bi-pap 08/25/18 12:00 30.0 08/25/18 10:31 60 21 99 Facial 30 7/19/19 09:10 62 23 99 Facial 30 08/25/18 08:08 30.0 08/25/18 08:00 Bi-pap 08/25/18 08:00 97.7 59 22 125/54 (77) 100 08/25/18 08:00 58 08/25/18 07:30 61 22 97 Facial 30 08/25/18 04:58 62 22 98 Facial 30 08/25/18 04:00 97.7 57 20 118/63 (81) 99 08/25/18 04:00 30.0 08/25/18 04:00 Bi-pap 08/25/18 03:26 56 08/25/18 02:53 58 21 99 Facial 30 08/25/18 00:55 63 22 98 Facial 30 08/25/18 00:00 97.8 60 25 110/64 (79) 99 08/25/18 00:00 Bi-pap 08/24/18 23:33 57 08/24/18 22:55 58 25 98 Facial 30 08/24/18 21:14 59 24 98 Facial 30 08/24/18 20:00 97.9 58 21 103/67 (79) 100 08/24/18 20:00 30.0 08/24/18 20:00 Bi-pap 08/24/18 19:12 65 08/24/18 18:50 59 22 100 Facial 30 08/24/18 17:29 61 24 99 Facial 30 08/24/18 16:00 97.2 59 20 139/65 (89) 99 08/24/18 16:00 30.0 08/24/18 16:00 60 08/24/18 16:00 Bi-pap Height (Feet): 5 Height (Inches): 5.00 Weight (Pounds): 135 Objective HEENT: Extraocular muscles intact. No lymphadenopathy noted. CARDIOVASCULAR: S1, S2. No rubs or gallops. PULMONARY: Mild upper rhonchi with basilar rales. ABDOMEN: Nondistended and nontender. EXTREMITIES: Trace edema bilaterally. Microbiology Date/Time Source Procedure Growth Status 08/23/18 03:50 Blood Blood Culture - Preliminary Gram Negative Bacillus 1 Resulted 08/23/18 03:30 Blood Blood Culture - Preliminary Gram Negative Bacillus 1 Resulted 08/24/18 11:00 Other(Specify in comment) Catheter Tip Culture - Preliminary NO GROWTH Resulted 08/24/18 18:00 Sputum Induced Gram Stain - Final Resulted 08/24/18 18:00 Sputum Induced Sputum Culture - Preliminary NO GROWTH AFTER 24 HOURS Resulted 08/23/18 04:00 Urine,Clean Catch Urine Culture - Final Proteus Mirabilis Complete 08/23/18 18:00 Rectum Received Laboratory Tests Test 08/24/18 15:49 08/25/18 03:50 08/25/18 07:26 Arterial Blood pH 7.460 (7.350-7.450) 7.494 (7.350-7.450) Arterial Blood Partial Pressure CO2 45.4 mmHg (35.0-45.0) H 43.3 mmHg (35.0-45.0) Arterial Blood Partial Pressure O2 109.8 mmHg (75.0-100.0) H 99.8 mmHg (75.0-100.0) Arterial Blood HCO3 31.7 mmol/L (22.0-26.0) H 32.6 mmol/L (22.0-26.0) H Arterial Blood Oxygen Saturation 97.6 % (95-100) 97.4 % (95-100) Arterial Blood Base Excess 7.2 (-2-2) H 8.5 (-2-2) H Cruzito Test Positive Positive White Blood Count 15.5 K/UL (4.8-10.8) H Red Blood Count 2.95 M/UL (4.20-5.40) L Hemoglobin 8.0 G/DL (12.0-16.0) L Hematocrit 26.4 % (37.0-47.0) L Mean Corpuscular Volume 90 FL (80-99) Mean Corpuscular Hemoglobin 27.2 PG (27.0-31.0) Mean Corpuscular Hemoglobin Concent 30.3 G/DL (32.0-36.0) L Red Cell Distribution Width 17.5 % (11.6-14.8) H Platelet Count 171 K/UL (150-450) Mean Platelet Volume 12.0 FL (6.5-10.1) H Neutrophils (%) (Auto) 83.1 % (45.0-75.0) H Lymphocytes (%) (Auto) 7.3 % (20.0-45.0) L Monocytes (%) (Auto) 5.3 % (1.0-10.0) Eosinophils (%) (Auto) 3.9 % (0.0-3.0) H Basophils (%) (Auto) 0.5 % (0.0-2.0) Prothrombin Time 33.5 SEC (9.30-11.50) H Prothromb Time International Ratio 3.4 (0.9-1.1) H Sodium Level 152 MMOL/L (136-145) H Potassium Level 3.9 MMOL/L (3.5-5.1) Chloride Level 115 MMOL/L (98-107) H Carbon Dioxide Level 33 MMOL/L (21-32) H Anion Gap 4 mmol/L (5-15) L Blood Urea Nitrogen 62 mg/dL (7-18) H Creatinine 0.7 MG/DL (0.55-1.30) Estimat Glomerular Filtration Rate mL/min (>60) Glucose Level 138 MG/DL (74-106) H Calcium Level 8.6 MG/DL (8.5-10.1) Current Medications Medications (Trade) Dose Ordered Sig/Marcel Route PRN Reason Start Time Stop Time Status Last Admin Dose Admin Atorvastatin Calcium (Lipitor) 20 mg BEDTIME GT 08/23/18 21:00 09/22/18 20:59 08/24/18 20:22 Carbidopa/Levodopa (Sinemet 25/250) 1 tab BID@0730,1230 GT 08/23/18 12:30 09/22/18 12:29 08/25/18 12:15 Chlorhexidine Gluconate (Yolanda-Hex 2%) 1 applic DAILY@2000 TOPIC 08/23/18 20:00 09/22/18 19:59 08/24/18 20:22 Dextrose 1,000 ml @ 75 mls/hr [id number] IV 08/23/18 08:12 09/22/18 08:11 08/25/18 00:38 Dextrose (Dextrose 50%) 25 ml Q30M PRN IV Hypoglycemia 08/23/18 08:15 09/22/18 08:14 Dextrose (Dextrose 50%) 50 ml Q30M PRN IV Hypoglycemia 08/23/18 08:15 09/22/18 08:14 EZETIMIBE (Zetia) 10 mg BEDTIME GT 08/23/18 21:00 09/22/18 20:59 08/24/18 20:22 Lansoprazole (Prevacid) 30 mg DAILY GT 08/23/18 09:00 09/22/18 08:59 08/25/18 08:26 Levothyroxine Sodium (Synthroid) 112 mcg DAILY@0630 GT 08/24/18 06:30 09/23/18 06:29 08/25/18 05:42 Meropenem 1 gm/ Sodium Chloride 55 ml @ 110 mls/hr Q12H IVPB 08/23/18 17:00 08/28/18 16:59 08/25/18 04:27 Mirtazapine (Remeron) 15 mg DAILY@1800 GT 08/23/18 18:00 09/22/18 17:59 08/24/18 17:30 Ropinirole HCl (Requip) 1 mg BID@0730,1230 GT 08/23/18 12:30 09/22/18 12:29 08/25/18 12:14 Vancomycin HCl (Vanco rx to dose) 1 ea DAILY PRN MISC Per rx protocol 08/23/18 12:30 09/22/18 12:29 Vancomycin HCl 750 mg/Sodium Chloride 275 ml @ 183.333 mls/hr Q24H IVPB 08/24/18 04:00 08/29/18 03:59 08/25/18 03:25 Warfarin Sodium (Coumadin per pharmacy) 1 ea DAILY PRN MISC Per rx protocol 08/23/18 08:15 09/22/18 08:14 Zinc Sulfate (Zinc Sulfate) 220 mg DAILY GT 08/23/18 09:00 09/22/18 08:59 08/25/18 08:26 Tasha Heart M.D. Aug 25, 2018 15:40
[2018-08-25 16:00] VITALS: BP 102/61
--- NOTE | 2018-08-25 17:00 | NUR ---
NURSE NOTES: Pt turned and repositioned,dressing changes to sacral wounds done x2,pt's daughter requested that dressing be done again by TRAVIS Haney
--- NOTE | 2018-08-25 19:29 | NUR ---
NURSE NOTES: Received patient from ALIZE Dotson. patient is resting in bed, no s/sx of pain noted at this time. patient is on 3 L O2 via NC, tolerating well. no s/sx of respiratory distress noted at this time. G-tube site is patent and intact, running feeding at prescribed rate. F/C is patent and intact, draining well. PICC line is patent and intact, running fluids at prescribed rate. skin alterations noted. bed in lowest position and locked, siderails up X3, call light within reach. will continue to monitor.
--- NOTE | 2018-08-25 19:30 | NUR ---
HAND-OFF: Report given to Ivana HERRMANN.
[2018-08-25 20:00] VITALS: BP 112/61
--- NOTE | 2018-08-25 20:49 | NUR ---
CASE MANAGEMENT: REVIEW SI: PNA . SEPSIS . ACUTE HYPOXEMIC RESP FAILURE T 97.0 HR 59 RR 22 BP 108/57 SAT 96% BIPAP FIO2 30 WBC 15.5 H/H 8.0/25.4 NA 152 IS: MEROPENEM IV Q12HR D5W @ 75ML/HR STEP DOWN UNIT STATUS DCP: PATIENT IS FROM [facility]
[2018-08-25] MEDS: Dyna-Hex 2% Top Sol 2oz TOPIC SCH (21:02)
[2018-08-25] MEDS: Atorvastatin 20mg tab GT SCH (21:03)
--- NOTE | 2018-08-25 22:00 | NUR ---
HAND-OFF: Report given to ALIZE Back. patient is in stable condition.
--- NOTE | 2018-08-25 22:05 | NUR ---
NURSE NOTES: BEDSIDE REPORT RECEIVED FROM ALIZE HUTCHISON. PT IS RESTING IN BED NONVERBAL, RESPONDS TO PAIN. MINE TECHNICIAN SHOWING NSR. BIPAP IN PLACE 15/6 @ 30%; TOLERATING WELL. CGT GLU 1.5 @ 65, NO RESIDUAL. SKIN IS CLEAN, DRY, DRESSINGS INTACT. FERNANDEZ PICC NOTED; ASYMPTOMATIC. BED IS LOCKED IN LOWEST POSITION, SR X3, CALL SCALES W/ IN REACH, BED ALARM ON. WILL CONTINUE TO MONITOR AND FOLLOW W/ PLAN OF CARE.
[2018-08-26] VITALS: BP 102/62
[2018-08-26 04:00] VITALS: BP 103/50
[2018-08-26] MEDS: Meropenem 1 GM in NS 55 ML IVPB SCH ×2 (04:14→16:18)
[2018-08-26 06:48] LABS: INR 2.2 (0.9-1.1)
[2018-08-26 06:55] LABS: ANION GAP 6 mmol/L (5-15); BLOOD UREA NITROGEN 51 mg/dL (7-18); CALCIUM 8.5 MG/DL (8.5-10.1); CARBON DIOXIDE 30 MMOL/L (21-32); CHLORIDE 110 MMOL/L (98-107); CREATININE 0.6 MG/DL (0.55-1.30); POTASSIUM 4.3 MMOL/L (3.5-5.1); SODIUM 146 MMOL/L (136-145)
--- NOTE | 2018-08-26 07:23 | NUR ---
HAND-OFF: Report given to ALIZE MESA.
--- NOTE | 2018-08-26 07:25 | NUR ---
NURSE NOTES: Report received from ALIZE Back. Observed patient in bed sleeping. Arousable by shaking. On BIPAP with previous setting with no distress noted. PICC line intact and patent with IVF running at prescribed rate. GT site intact with ongoing feeding. HOB elevated. No residual noted. F/C intact and draining well. Bed in lowest position. Call light within reach. Will continue to monitor.
--- NOTE | 2018-08-26 07:38 | Nephrology Progress Note ---
Assessment/Plan Assessment/Plan: A/P 1) Hypernatremia- improved, Na 146 - continue D5W until Na <146. Then will DC 2) Sepsis- G- bacteremia- replaced quinn and PICC line - Abx per ID 3) Resp FL- on BiPAP. Mgmt per pulm 4) DVT- on coumadin, INR goal 2-3 5) Malnutrition- TFs 6) Sacral Decub- chronic, continue wound care DC once cleared by Pulm Subjective Date patient seen: Aug 26, 2018 Time patient seen: 07:37 ROS Limited/Unobtainable: Yes Allergies: Coded Allergies: STRAWBERRY (Verified Allergy, Unknown, Rash, 06/29/13) COPIED FROM UNCODED SECTION VALSARTAN (Verified Allergy, Unknown, 03/09/11) Subjective Patient remains on BiPAP. Objective Last 24 Hour Vital Signs Date Time Temp Pulse Resp B/P (MAP) Pulse Ox O2 Delivery O2 Flow Rate FiO2 08/26/18 04:54 63 19 99 Facial 30 08/26/18 04:00 61 08/26/18 04:00 97.4 63 24 103/50 (67) 100 08/26/18 04:00 Bi-pap 08/26/18 02:31 59 21 100 Facial 30 08/26/18 00:55 61 20 100 Facial 30 08/26/18 00:00 Bi-pap 08/26/18 00:00 97.9 61 26 102/62 (75) 100 08/26/18 00:00 64 08/25/18 22:44 67 27 99 Facial 30 08/25/18 20:00 65 08/25/18 20:00 Bi-pap 08/25/18 20:00 98.3 62 24 112/61 (78) 98 08/25/18 19:40 100 Nasal Cannula 3.0 32 08/25/18 16:00 60 08/25/18 16:00 97.6 59 20 102/61 (75) 98 08/25/18 16:00 Bi-pap 08/25/18 14:35 99 Nasal Cannula 3.0 32 08/25/18 12:35 72 22 96 08/25/18 12:00 62 08/25/18 12:00 97.0 66 17 108/57 (74) 96 08/25/18 12:00 Bi-pap 08/25/18 12:00 30.0 08/25/18 10:31 60 21 99 Facial 30 08/25/18 09:10 62 23 99 Facial 30 08/25/18 08:08 30.0 08/25/18 08:00 Bi-pap 08/25/18 08:00 97.7 59 22 125/54 (77) 100 08/25/18 08:00 58 Intake and Output 08/25/18 08/26/18 18:59 06:59 Intake Total 1875 ml 1895 ml Output Total 550 ml 550 ml Balance 1325 ml 1345 ml Free Water 300 ml 170 ml IV Total 675 ml 1010 ml Tube Feeding 780 ml 715 ml Other 120 ml Output Urine Total 550 ml 550 ml # Bowel Movements 4 2 Laboratory Tests 08/26/18 05:10: Prothrombin Time 22.7H, Prothromb Time International Ratio 2.2H, Sodium Level 146H, Potassium Level 4.3, Chloride Level 110H, Carbon Dioxide Level 30, Anion Gap 6, Blood Urea Nitrogen 51H, Creatinine 0.6, Estimat Glomerular Filtration Rate , Glucose Level 120H, Calcium Level 8.5 Height (Feet): 5 Height (Inches): 5.00 Weight (Pounds): 135 General Appearance: no apparent distress EENT: normal ENT inspection Neck: normal alignment, supple Cardiovascular: normal rate, regular rhythm Respiratory/Chest: rhonchi - bilaterally Abdomen: non tender, soft Edema: no edema noted Arm (L), no edema noted Arm (R), no edema noted Leg (L), no edema noted Leg (R), no edema noted Pedal (L), no edema noted Pedal (R), no edema noted Generalized Jeremiah Mclaughlin MD Aug 26, 2018 07:38
[2018-08-26 08:00] VITALS: BP 111/66
[2018-08-26] MEDS: Zinc Sulfate 220mg cap GT SCH (08:04)
[2018-08-26] MEDS: Levodopa/Carbidopa 25/250 tab GT SCH ×2 (08:04→12:08)
[2018-08-26 08:05] LABS: BASOPHILS % (AUTO) 0.3 % (0.0-2.0); EOSINOPHILS % (AUTO) 4.2 % (0.0-3.0); HEMATOCRIT 28.5 % (37.0-47.0); HEMOGLOBIN 8.7 G/DL (12.0-16.0); LYMPHOCYTES % (AUTO) 11.9 % (20.0-45.0); MEAN CORPUSCULAR VOLUME 89 FL (80-99); MONOCYTES % (AUTO) 4.9 % (1.0-10.0); NEUTROPHILS % (AUTO) 78.7 % (45.0-75.0); PLATELET COUNT 165 K/UL (150-450); RED BLOOD COUNT 3.21 M/UL (4.20-5.40); WHITE BLOOD COUNT 14.5 K/UL (4.8-10.8)
--- NOTE | 2018-08-26 10:53 | Pulmonology Progress Note ---
Assessment/Plan Assessment/Plan Problem List: 1. Acute hypoxemic respiratory failure 2. Pneumonia 3. UTI 4. Sepsis 5. Dementia 6. hx osteomyelitis 7. Dysphagia s/p PEG Plan: -BiPAP 15/6 qhs and prn -ABG prn -duonebs -abx per ID -f/u cultures -cont tube feeds -d/c planning, ok from pulmonary perspective Subjective ROS Limited/Unobtainable: Yes Interval Events: Tolerated nasal cannula most of day yesterday. BiPAP overnight. Allergies: Coded Allergies: STRAWBERRY (Verified Allergy, Unknown, Rash, 06/29/13) COPIED FROM UNCODED SECTION VALSARTAN (Verified Allergy, Unknown, 03/09/11) Objective Last 24 Hour Vital Signs Date Time Temp Pulse Resp B/P (MAP) Pulse Ox O2 Delivery O2 Flow Rate FiO2 08/26/18 08:00 Nasal Cannula 3.0 08/26/18 08:00 66 08/26/18 08:00 98.9 71 28 111/66 (81) 98 08/26/18 07:43 61 27 100 Facial 30 08/26/18 07:42 30 Bi-Pap 30 08/26/18 04:54 63 19 99 Facial 30 08/26/18 04:00 61 08/26/18 04:00 97.4 63 24 103/50 (67) 100 08/26/18 04:00 Bi-pap 08/26/18 02:31 59 21 100 Facial 30 08/26/18 00:55 61 20 100 Facial 30 08/26/18 00:00 Bi-pap 08/26/18 00:00 97.9 61 26 102/62 (75) 100 08/26/18 00:00 64 08/25/18 22:44 67 27 99 Facial 30 08/25/18 20:00 65 08/25/18 20:00 Bi-pap 08/25/18 20:00 98.3 62 24 112/61 (78) 98 08/25/18 19:40 100 Nasal Cannula 3.0 32 08/25/18 16:00 60 08/25/18 16:00 97.6 59 20 102/61 (75) 98 08/25/18 16:00 Bi-pap 08/25/18 14:35 99 Nasal Cannula 3.0 32 08/25/18 12:35 72 22 96 08/25/18 12:00 62 08/25/18 12:00 97.0 66 17 108/57 (74) 96 08/25/18 12:00 Bi-pap 08/25/18 12:00 30.0 Intake and Output 08/25/18 08/26/18 19:00 07:00 Intake Total 1735 ml 1960 ml Output Total 550 ml 550 ml Balance 1185 ml 1410 ml Free Water 300 ml 170 ml IV Total 600 ml 1010 ml Tube Feeding 715 ml 780 ml Other 120 ml Output Urine Total 550 ml 550 ml # Bowel Movements 4 2 General Appearance: no acute distress HEENT: mucous membranes moist Respiratory/Chest: lungs clear Cardiovascular: normal rate, regular rhythm Abdomen: soft, non tender Extremities: no edema Microbiology Date/Time Source Procedure Growth Status 08/24/18 16:00 Blood Blood Culture - Preliminary NO GROWTH AFTER 24 HOURS Resulted 08/24/18 15:50 Blood Blood Culture - Preliminary NO GROWTH AFTER 24 HOURS Resulted 08/24/18 11:00 Other(Specify in comment) Catheter Tip Culture - Preliminary NO GROWTH AFTER 48 HOURS Resulted 08/24/18 18:00 Sputum Induced Gram Stain - Final Resulted 08/24/18 18:00 Sputum Culture - Preliminary Staphylococcus Aureus Resulted 08/23/18 18:00 Nasal Nares Right MRSA Culture - Final Staphylococcus Aureus - Mrsa Complete 08/23/18 18:00 Rectum - Final NO CARBAPENEM-RESISTANT ENTEROBACTERI... Complete 08/23/18 18:00 Rectum VRE Culture - Final Enterococcus Faecium - Vre Complete Laboratory Tests 08/26/18 04:00: Arterial Blood pH 7.416, Arterial Blood Partial Pressure CO2 45.7H, Arterial Blood Partial Pressure O2 87.6, Arterial Blood HCO3 28.7H, Arterial Blood Oxygen Saturation 95.8, Arterial Blood Base Excess 3.7H, Cruzito Test Positive 08/26/18 05:01: White Blood Count 14.5H, Red Blood Count 3.21L, Hemoglobin 8.7L, Hematocrit 28.5L, Mean Corpuscular Volume 89, Mean Corpuscular Hemoglobin 27.1, Mean Corpuscular Hemoglobin Concent 30.4L, Red Cell Distribution Width 17.0H, Platelet Count 165, Mean Platelet Volume 12.3H, Neutrophils (%) (Auto) 78.7H, Lymphocytes (%) (Auto) 11.9L, Monocytes (%) (Auto) 4.9, Eosinophils (%) (Auto) 4.2H, Basophils (%) (Auto) 0.3 08/26/18 05:10: Prothrombin Time 22.7H, Prothromb Time International Ratio 2.2H, Sodium Level 146H, Potassium Level 4.3, Chloride Level 110H, Carbon Dioxide Level 30, Anion Gap 6, Blood Urea Nitrogen 51H, Creatinine 0.6, Estimat Glomerular Filtration Rate , Glucose Level 120H, Calcium Level 8.5 Current Medications Medications (Trade) Dose Ordered Sig/Marcel Route PRN Reason Start Time Stop Time Status Last Admin Dose Admin Atorvastatin Calcium (Lipitor) 20 mg BEDTIME GT 08/23/18 21:00 09/22/18 20:59 08/25/18 21:03 Carbidopa/Levodopa (Sinemet 25/250) 1 tab BID@0730,1230 GT 08/23/18 12:30 09/22/18 12:29 08/26/18 08:04 Chlorhexidine Gluconate (Yolanda-Hex 2%) 1 applic DAILY@2000 TOPIC 08/23/18 20:00 09/22/18 19:59 08/25/18 21:02 Dextrose 1,000 ml @ 75 mls/hr [id number] IV 08/23/18 08:12 09/22/18 08:11 08/26/18 03:42 Dextrose (Dextrose 50%) 25 ml Q30M PRN IV Hypoglycemia 08/23/18 08:15 09/22/18 08:14 Dextrose (Dextrose 50%) 50 ml Q30M PRN IV Hypoglycemia 08/23/18 08:15 09/22/18 08:14 EZETIMIBE (Zetia) 10 mg BEDTIME GT 08/23/18 21:00 09/22/18 20:59 08/25/18 21:03 Lansoprazole (Prevacid) 30 mg DAILY GT 08/23/18 09:00 09/22/18 08:59 08/26/18 08:04 Levothyroxine Sodium (Synthroid) 112 mcg DAILY@0630 GT 08/24/18 06:30 09/23/18 06:29 08/26/18 05:50 Meropenem 1 gm/ Sodium Chloride 55 ml @ 110 mls/hr Q12H IVPB 08/23/18 17:00 08/28/18 16:59 08/26/18 04:14 Mirtazapine (Remeron) 15 mg DAILY@1800 GT 08/23/18 18:00 09/22/18 17:59 08/25/18 17:17 Ropinirole HCl (Requip) 1 mg BID@0730,1230 GT 08/23/18 12:30 09/22/18 12:29 08/26/18 08:04 Warfarin Sodium (Coumadin per pharmacy) 1 ea DAILY PRN MISC Per rx protocol 08/23/18 08:15 09/22/18 08:14 Warfarin Sodium (Coumadin) 4 mg COUMADIN ONCE PO 08/26/18 17:00 08/26/18 17:01 Zinc Sulfate (Zinc Sulfate) 220 mg DAILY GT 08/23/18 09:00 09/22/18 08:59 08/26/18 08:04 Bonilla Lovett MD Aug 26, 2018 10:53
[2018-08-26] MEDS ORDERED: NS 275ml ONE ×2 (10:55→10:58)
[2018-08-26] MEDS ORDERED: Sterile Water Irrig 1000ml IRRIG ONE (10:55)
[2018-08-26] MEDS ORDERED: Tubing IV Secondary IV ONE (10:58)
[2018-08-26 12:00] VITALS: BP 103/51
--- NOTE | 2018-08-26 14:48 | Surgery Progress Note ---
Surgery Progress Note Objective Last 24 Hour Vital Signs Date Time Temp Pulse Resp B/P (MAP) Pulse Ox O2 Delivery O2 Flow Rate FiO2 08/26/18 12:00 70 08/26/18 12:00 99.0 68 25 103/51 (68) 98 08/26/18 11:52 Nasal Cannula 3.0 08/26/18 08:00 Nasal Cannula 3.0 08/26/18 08:00 66 08/26/18 08:00 98.9 71 28 111/66 (81) 98 08/26/18 07:43 61 27 100 Facial 30 08/26/18 07:42 30 Bi-Pap 30 08/26/18 04:54 63 19 99 Facial 30 08/26/18 04:00 61 08/26/18 04:00 97.4 63 24 103/50 (67) 100 08/26/18 04:00 Bi-pap 08/26/18 02:31 59 21 100 Facial 30 08/26/18 00:55 61 20 100 Facial 30 08/26/18 00:00 Bi-pap 08/26/18 00:00 97.9 61 26 102/62 (75) 100 08/26/18 00:00 64 08/25/18 22:44 67 27 99 Facial 30 08/25/18 20:00 65 08/25/18 20:00 Bi-pap 08/25/18 20:00 98.3 62 24 112/61 (78) 98 08/25/18 19:40 100 Nasal Cannula 3.0 32 08/25/18 16:00 60 08/25/18 16:00 97.6 59 20 102/61 (75) 98 08/25/18 16:00 Bi-pap I&O Intake and Output 08/25/18 08/26/18 19:00 07:00 Intake Total 1735 ml 1960 ml Output Total 550 ml 550 ml Balance 1185 ml 1410 ml Free Water 300 ml 170 ml IV Total 600 ml 1010 ml Tube Feeding 715 ml 780 ml Other 120 ml Output Urine Total 550 ml 550 ml # Bowel Movements 4 2 Laboratory Tests Test 08/26/18 04:00 08/26/18 05:01 08/26/18 05:10 Arterial Blood pH 7.416 (7.350-7.450) Arterial Blood Partial Pressure CO2 45.7 mmHg (35.0-45.0) H Arterial Blood Partial Pressure O2 87.6 mmHg (75.0-100.0) Arterial Blood HCO3 28.7 mmol/L (22.0-26.0) H Arterial Blood Oxygen Saturation 95.8 % (95-100) Arterial Blood Base Excess 3.7 (-2-2) H Cruzito Test Positive White Blood Count 14.5 K/UL (4.8-10.8) H Red Blood Count 3.21 M/UL (4.20-5.40) L Hemoglobin 8.7 G/DL (12.0-16.0) L Hematocrit 28.5 % (37.0-47.0) L Mean Corpuscular Volume 89 FL (80-99) Mean Corpuscular Hemoglobin 27.1 PG (27.0-31.0) Mean Corpuscular Hemoglobin Concent 30.4 G/DL (32.0-36.0) L Red Cell Distribution Width 17.0 % (11.6-14.8) H Platelet Count 165 K/UL (150-450) Mean Platelet Volume 12.3 FL (6.5-10.1) H Neutrophils (%) (Auto) 78.7 % (45.0-75.0) H Lymphocytes (%) (Auto) 11.9 % (20.0-45.0) L Monocytes (%) (Auto) 4.9 % (1.0-10.0) Eosinophils (%) (Auto) 4.2 % (0.0-3.0) H Basophils (%) (Auto) 0.3 % (0.0-2.0) Prothrombin Time 22.7 SEC (9.30-11.50) H Prothromb Time International Ratio 2.2 (0.9-1.1) H Sodium Level 146 MMOL/L (136-145) H Potassium Level 4.3 MMOL/L (3.5-5.1) Chloride Level 110 MMOL/L (98-107) H Carbon Dioxide Level 30 MMOL/L (21-32) Anion Gap 6 mmol/L (5-15) Blood Urea Nitrogen 51 mg/dL (7-18) H Creatinine 0.6 MG/DL (0.55-1.30) Estimat Glomerular Filtration Rate mL/min (>60) Glucose Level 120 MG/DL (74-106) H Calcium Level 8.5 MG/DL (8.5-10.1) Plan Problems: (1) Severe malnutrition Assessment & Plan: need nutritional optimization DAILY ESTIMATED NEEDS: Needs based on Wounds, pulmonary, 49kg 30-35 kcals/kg 4084-4384 total kcals 1.25-2 g protein/kg 61-98 g total protein 25-30ml/kcal mL/kg 7673-8554 total fluid mLs NUTRITION DIAGNOSIS: * Increased kcal/prot needs R/T wound healing, as evidenced by multiple wounds per photo- refer to wound eval, including stage 4 sacral wound. * Swallowing difficulty R/T dysphagia as evidenced by pt is GT dependent, currently on Bipap. CURRENT TF: Glucerna 1.5 @65ml/hr continuous ENTERAL NUTRITION RECOMMENDATIONS: Glucerna 1.5 @50ml/hr x22 hrs to provide 1100ml, 1650kcal, 91g prot, 835ml free water * As medically able, start Glucerna 1.5 @20ml/hr for 6 hrs. Advance as tolerated 10ml/hr q4-6 hrs to goal * Hold 1 hr before and after Synthroid med. * HOB over 30 degrees/ water flush per MD. ----- ALTERNATIVELY IF PT IS ON BIPAP FOR EXTENDED TIME, REC LIMITED 12 HR TF RUN TIME: -> Glucerna 1.5 @82ml/hr x12 hrs to provide 984ml, 1476 kcal, 81g pro, 747ml free H2O. -> 82ml/hr= est 5.5 tablespoons of tube feed per hour -> TF at goal meets 100% est kcal and pro needs. ADDITIONAL RECOMMENDATIONS: * RE-calibrated bedscale wt-> now w/ added P200 mattress * Wound healing: add Larry 1pkt BID + MVI w/ min daily + Vit C 250mg BID + Continue ZnSO4 220mg x10 days * Rec to increase water flushes totalling 600ml free fluid/day when off IVF * Weekly calibrated bed scale wts . (2) Failure to thrive (3) Decubitus ulcer of sacral region, stage 4 Assessment & Plan: Pt presented on admission with multiple pressure injuries.Scattered areas of non-blanchable erythema noted to R earlobe. L earlobe is pink and blanchable. #2 areas of non-blanching erythema noted to L scapula(proximal)-(L)2cm x (W) 2.5cm,(Distal)-(L)1cm x(W)0.6cm. Non-blanchable erythema noted to L thoracic(L)1.5cm x (W)2cm. Cat 3 skin tear with 100% flap loss noted to Medial L antecubital (L)0.6cm x (W) 0.5cm. Full thickness sacral pressure injury with undermining noted (L)7cm x (W)7.5cm x (D)0.5cm ,undermining clockwise 12-12 by 5.2cm @12o'clock. [place] granulation at base of wound .Loose edges ,(+) epibole noted. Periwound is indurated with additional skin breakdown noted periwound -Clockwise at 6o'clock an area of soft necrosis that is partially opened but dry noted (L)3.5cm x (W)1.8cm , an area that is fluctuant and maroon in colour noted at 5o'clock (L)2.5cm x (W) 2cm.DTR at bedside and was informed likelihood of these two areas becoming open wounds secondary to already compromised skin from sacral wound and that that these areas are over undermined areas of sacral wound..Both ischial areas are pink and blanchable. Pt noted to have developed erythema to L scapula and L hip and L trochanter within few minutes of being on L side for staff to assess wounds. Dtr also educated pt is at high risks secondary to poor tissue perfusion and comorbidities. Pt noted to be wearing soft heel raiser boots .Upon removal of heel raiser boots pt noted to have DTPI's to R and L posterior tibias.L tibia has an elongated area that is maroon in colour and base of wound is indurated(L)11.5cm x (W)2cm. R tibia DTPI. Base of wound is maroon and indurated (L)1.2cm x (W)0.5cm. scattered areas of non-blanching erythema periwound Dtr informed it was in best interest of pt to discontinue heel raiser boots and have both lower ext off- loaded with pillows with heels floated. Dtr agreed with staff. R heel and plantar R heel fluctuant and maroon in colour (L)4.5cm x (W)7.5cm. L heel fluctuant but blanchable. cavilon Skin Barrier applied with Optifoam drsgs to all bony prominences such as both clavicles,both scapulae,bilat elbows ,both trochanter/ hips, and kyphosis to minimize skin breakdown. Dtr informed pt will be transferred to an Air fluidized mattress pending delivery today.Pt positioned with pillows. Tx.Plan: Cleanse Sacral wound with Saline.Apply Hydrogel. Layer Calcium Alginate sheet with attention to undermined borders of wound. Apply Triad paste periwound. Cover with Optifoam drsg Daily and prn. Apply Cavilon Skin Barrier to bony prominences. Cover each area with Optifoam drsgs. Change every 7 days and PRN. Apply Cavilon Skin Barrier to R and L tibia. Cover each wound with Optifoam drsgs. Change every 7 days and prn. Apply Cavilon Skin Barrier to R heel DTPI. Cover with Optifoam drsg. Change every 7 days and PRN. Clean skin tear medial L antecubital. (leave Versatel in place)Apply Silvasorb gel. Cover with Optifoam drsg every 7 days and prn. Air Fluidized mattress. Reposition at least every 2hours or as tolerated. Place pillow between knees .Off-load heels with pillows. 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
[2018-08-26 16:00] VITALS: BP 114/46
[2018-08-26] MEDS ORDERED: Warfarin Sodium 4mg PO ONE (17:00)
--- NOTE | 2018-08-26 19:20 | NUR ---
HAND-OFF: Report given to ALIZE Heath. Stable condition.
--- NOTE | 2018-08-26 19:21 | NUR ---
NURSE NOTES: Received patient from ALIZE Artsi. patient is sleeping in bed, arousable to shaking. no s/sx of pain noted at this time. patient is on 3 L O2 via NC, tolerating well. no s/sx of respiratory distress noted at this time. G-tube site is patent and intact, running feeding at prescribed rate. HOB elevated. PICC line is patent and intact, asymptomatic, running fluids at prescribed rate. F/C patent and intact, draining well. bed in lowest position and locked, siderails up X3, call light within reach. will continue to monitor.
[2018-08-26 20:00] VITALS: BP 107/57
[2018-08-26] MEDS: Dyna-Hex 2% Top Sol 2oz TOPIC SCH (20:22)
[2018-08-26] MEDS: Atorvastatin 20mg tab GT SCH (20:22)
--- NOTE | 2018-08-26 22:27 | Infectious Diseases Prog Note ---
Assessment/Plan Assessment/Plan Assessment: Sepsis -2ry to likely PNA and UTI and bacteremia -?source of bacteremia- ?PICC line infection vs intrabdominal -CXR The study is a very limited because of rotation and obscuring structures. There may be mild interstitial edema present within the lungs. Heart is enlarged. The lung bases are obscured. -u/a wbc tnct, nit neg, leuk +3; ucx >100k P. mirabilis (R Cipro/levaquin, Nitrofurantoin) - -08/23 BCx 2/4 PsA (gallegos S); 08/24 Bcx NTD -sp cxS. aureus (sensi pending) -Abd US: No acute findings identified. Limited study as described above. Reported GNR bacteremia (at [place] -08/18 Bcx Pseudomonas 9pan S) Low grade fever; improving Leukocytosis; improving Hypernatremia Sacral decubitus Ulcer/OM- -s/p recent 10 weeks of IV zosyn COPD PNA Dementia PE/DVT GERD s/p GT Parkinson's disease TIA severe kyphosis [facility] resident PICC line ([employer]CH[employer]ICIAN)- s/p removal 08/24 -cath tip cx NTD Plan: -Switch empiric Meropenem #/ to Cefepime for Proteus UTI and PsA bacteremia -Resume IV Vancomycin #4 pending S. aureus sensi -08/25 SP IV Vancomycin #3 -08/23 Cefepime x1, Levaquin x1 -f/u cx -Monitor CBC/CMP, temperatures -f/u CXR -f/u Repeat Bx x2 -aspiration precautions -CT abd/p w/ Thank you for this consultation. Will continue to follow along with you. Discussed with RN. Subjective Allergies: Coded Allergies: STRAWBERRY (Verified Allergy, Unknown, Rash, 06/29/13) COPIED FROM UNCODED SECTION VALSARTAN (Verified Allergy, Unknown, 03/09/11) Subjective afebrile >72hrs wbc imropving repeat Bcx NTD Objective Vital Signs Last 24 Hour Vital Signs Date Time Temp Pulse Resp B/P (MAP) Pulse Ox O2 Delivery O2 Flow Rate FiO2 08/26/18 20:00 Nasal Cannula 3.0 08/26/18 20:00 68 08/26/18 20:00 98.2 69 28 107/57 (74) 98 08/26/18 18:38 99 Nasal Cannula 3.0 32 08/26/18 16:00 65 08/26/18 16:00 98.2 71 29 114/46 (68) 97 08/26/18 16:00 Nasal Cannula 3.0 08/26/18 12:00 70 08/26/18 12:00 99.0 68 25 103/51 (68) 98 08/26/18 11:52 Nasal Cannula 3.0 08/26/18 08:00 Nasal Cannula 3.0 08/26/18 08:00 66 08/26/18 08:00 98.9 71 28 111/66 (81) 98 08/26/18 07:43 61 27 100 Facial 30 08/26/18 07:42 30 Bi-Pap 30 08/26/18 04:54 63 19 99 Facial 30 08/26/18 04:00 61 08/26/18 04:00 97.4 63 24 103/50 (67) 100 08/26/18 04:00 Bi-pap 08/26/18 02:31 59 21 100 Facial 30 08/26/18 00:55 61 20 100 Facial 30 08/26/18 00:00 Bi-pap 08/26/18 00:00 97.9 61 26 102/62 (75) 100 08/26/18 00:00 64 08/25/18 22:44 67 27 99 Facial 30 Height (Feet): 5 Height (Inches): 5.00 Weight (Pounds): 135 Objective HEENT: Extraocular muscles intact. No lymphadenopathy noted. CARDIOVASCULAR: S1, S2. No rubs or gallops. PULMONARY: Mild upper rhonchi with basilar rales. ABDOMEN: Nondistended and nontender. EXTREMITIES: Trace edema bilaterally. Microbiology Date/Time Source Procedure Growth Status 08/24/18 16:00 Blood Blood Culture - Preliminary NO GROWTH AFTER 24 HOURS Resulted 08/24/18 15:50 Blood Blood Culture - Preliminary NO GROWTH AFTER 24 HOURS Resulted 08/24/18 11:00 Other(Specify in comment) Catheter Tip Culture - Preliminary NO GROWTH AFTER 48 HOURS Resulted 08/24/18 18:00 Sputum Induced Gram Stain - Final Resulted 08/24/18 18:00 Sputum Culture - Preliminary Staphylococcus Aureus Resulted Laboratory Tests Test 08/26/18 04:00 08/26/18 05:01 08/26/18 05:10 Arterial Blood pH 7.416 (7.350-7.450) Arterial Blood Partial Pressure CO2 45.7 mmHg (35.0-45.0) H Arterial Blood Partial Pressure O2 87.6 mmHg (75.0-100.0) Arterial Blood HCO3 28.7 mmol/L (22.0-26.0) H Arterial Blood Oxygen Saturation 95.8 % (95-100) Arterial Blood Base Excess 3.7 (-2-2) H Cruzito Test Positive White Blood Count 14.5 K/UL (4.8-10.8) H Red Blood Count 3.21 M/UL (4.20-5.40) L Hemoglobin 8.7 G/DL (12.0-16.0) L Hematocrit 28.5 % (37.0-47.0) L Mean Corpuscular Volume 89 FL (80-99) Mean Corpuscular Hemoglobin 27.1 PG (27.0-31.0) Mean Corpuscular Hemoglobin Concent 30.4 G/DL (32.0-36.0) L Red Cell Distribution Width 17.0 % (11.6-14.8) H Platelet Count 165 K/UL (150-450) Mean Platelet Volume 12.3 FL (6.5-10.1) H Neutrophils (%) (Auto) 78.7 % (45.0-75.0) H Lymphocytes (%) (Auto) 11.9 % (20.0-45.0) L Monocytes (%) (Auto) 4.9 % (1.0-10.0) Eosinophils (%) (Auto) 4.2 % (0.0-3.0) H Basophils (%) (Auto) 0.3 % (0.0-2.0) Prothrombin Time 22.7 SEC (9.30-11.50) H Prothromb Time International Ratio 2.2 (0.9-1.1) H Sodium Level 146 MMOL/L (136-145) H Potassium Level 4.3 MMOL/L (3.5-5.1) Chloride Level 110 MMOL/L (98-107) H Carbon Dioxide Level 30 MMOL/L (21-32) Anion Gap 6 mmol/L (5-15) Blood Urea Nitrogen 51 mg/dL (7-18) H Creatinine 0.6 MG/DL (0.55-1.30) Estimat Glomerular Filtration Rate mL/min (>60) Glucose Level 120 MG/DL (74-106) H Calcium Level 8.5 MG/DL (8.5-10.1) Current Medications Medications (Trade) Dose Ordered Sig/Marcel Route PRN Reason Start Time Stop Time Status Last Admin Dose Admin Atorvastatin Calcium (Lipitor) 20 mg BEDTIME GT 08/23/18 21:00 09/22/18 20:59 08/26/18 20:22 Carbidopa/Levodopa (Sinemet 25/250) 1 tab BID@0730,1230 GT 08/23/18 12:30 09/22/18 12:29 08/26/18 12:08 Chlorhexidine Gluconate (Yolanda-Hex 2%) 1 applic DAILY@2000 TOPIC 08/23/18 20:00 09/22/18 19:59 08/26/18 20:22 Dextrose 1,000 ml @ 75 mls/hr [id number] IV 08/23/18 08:12 09/22/18 08:11 08/26/18 16:13 Dextrose (Dextrose 50%) 25 ml Q30M PRN IV Hypoglycemia 08/23/18 08:15 09/22/18 08:14 Dextrose (Dextrose 50%) 50 ml Q30M PRN IV Hypoglycemia 08/23/18 08:15 09/22/18 08:14 EZETIMIBE (Zetia) 10 mg BEDTIME GT 08/23/18 21:00 09/22/18 20:59 08/26/18 20:22 Lansoprazole (Prevacid) 30 mg DAILY GT 08/23/18 09:00 09/22/18 08:59 08/26/18 08:04 Levothyroxine Sodium (Synthroid) 112 mcg DAILY@0630 GT 08/24/18 06:30 09/23/18 06:29 08/26/18 05:50 Meropenem 1 gm/ Sodium Chloride 55 ml @ 110 mls/hr Q12H IVPB 08/23/18 17:00 08/28/18 16:59 08/26/18 16:18 Mirtazapine (Remeron) 15 mg DAILY@1800 GT 08/23/18 18:00 09/22/18 17:59 08/26/18 17:24 Ropinirole HCl (Requip) 1 mg BID@0730,1230 GT 08/23/18 12:30 09/22/18 12:29 08/26/18 12:08 Warfarin Sodium (Coumadin per pharmacy) 1 ea DAILY PRN MISC Per rx protocol 08/23/18 08:15 09/22/18 08:14 Zinc Sulfate (Zinc Sulfate) 220 mg DAILY GT 08/23/18 09:00 09/22/18 08:59 08/26/18 08:04 Tasha Heart M.D. Aug 26, 2018 22:27
[2018-08-26] MEDS ORDERED: Isovue-300 100ml vial INJ PRN (22:30)
[2018-08-26] MEDS ORDERED: Vancomycin 500mg/D5W 110ml IVPB SCH ×2 (23:00)
[2018-08-27] VITALS: BP 106/60
[2018-08-27] MEDS: Cefepime HCl 2 GM in D5W 55 ML IVPB SCH ×2 (00:25→08:36)
[2018-08-27 04:00] VITALS: BP 132/49
[2018-08-27] MEDS: Meropenem 1 GM in NS 55 ML IVPB SCH (05:30)
[2018-08-27] MEDS: Levodopa/Carbidopa 25/250 tab GT SCH (06:37)
--- NOTE | 2018-08-27 07:34 | NUR ---
HAND-OFF: Report given to ALIZE Beck. patient is in stable condition.
--- NOTE | 2018-08-27 07:35 | NUR ---
NURSE NOTES: received patient report from cora lucia. patient is on bed asleep. not in acute distress. bed is low and locked for safety. will follow plan of care.
--- NOTE | 2018-08-27 07:48 | Nephrology Progress Note ---
Assessment/Plan Assessment/Plan: A/P 1) Hypernatremia- resolved 2) Sepsis- G- bacteremia- replaced quinn and PICC line - Abx per ID to continue at NH 3) Resp FL- on BiPAP. Mgmt per pulm 4) DVT- on coumadin, INR goal 2-3 5) Malnutrition- TFs 6) Sacral Decub- chronic, continue wound care DC today Subjective Date patient seen: Aug 27, 2018 Time patient seen: 07:47 ROS Limited/Unobtainable: Yes Allergies: Coded Allergies: STRAWBERRY (Verified Allergy, Unknown, Rash, 06/29/13) COPIED FROM UNCODED SECTION VALSARTAN (Verified Allergy, Unknown, 03/09/11) Subjective Patient off BiPAP. Son at bedside Objective Last 24 Hour Vital Signs Date Time Temp Pulse Resp B/P (MAP) Pulse Ox O2 Delivery O2 Flow Rate FiO2 08/27/18 04:42 63 20 99 Facial 30 08/27/18 04:00 57 08/27/18 04:00 98.2 58 24 132/49 (76) 98 08/27/18 04:00 Nasal Cannula 3.0 08/27/18 02:43 60 23 100 Facial 30 08/27/18 00:42 62 27 99 Facial 30 08/27/18 00:00 65 08/27/18 00:00 Nasal Cannula 3.0 08/27/18 00:00 97.7 58 22 106/60 (75) 100 08/26/18 23:35 67 30 99 Facial 30 08/26/18 20:00 Nasal Cannula 3.0 08/26/18 20:00 68 08/26/18 20:00 98.2 69 28 107/57 (74) 98 08/26/18 18:38 99 Nasal Cannula 3.0 32 08/26/18 16:00 65 08/26/18 16:00 98.2 71 29 114/46 (68) 97 08/26/18 16:00 Nasal Cannula 3.0 08/26/18 12:00 70 08/26/18 12:00 99.0 68 25 103/51 (68) 98 08/26/18 11:52 Nasal Cannula 3.0 08/26/18 08:00 Nasal Cannula 3.0 08/26/18 08:00 66 08/26/18 08:00 98.9 71 28 111/66 (81) 98 Intake and Output 08/26/18 08/27/18 18:59 06:59 Intake Total 1920 ml 1600 ml Output Total 500 ml 700 ml Balance 1420 ml 900 ml Free Water 260 ml 100 ml IV Total 880 ml 1175 ml Tube Feeding 780 ml 325 ml Output Urine Total 500 ml 700 ml # Bowel Movements 2 2 Height (Feet): 5 Height (Inches): 5.00 Weight (Pounds): 135 Jeremiah Mclaughlin MD Aug 27, 2018 07:48
[2018-08-27 07:52] LABS: HEMATOCRIT 25.2 % (37.0-47.0); HEMOGLOBIN 7.7 G/DL (12.0-16.0); MEAN CORPUSCULAR VOLUME 89 FL (80-99); PLATELET COUNT 133 K/UL (150-450); RED BLOOD COUNT 2.83 M/UL (4.20-5.40); RED CELL DISTRIBUTION WIDTH 17.6 % (11.6-14.8); WHITE BLOOD COUNT 14.3 K/UL (4.8-10.8)
[2018-08-27 07:59] LABS: INR 1.7 (0.9-1.1)
[2018-08-27 08:00] VITALS: BP 106/50
[2018-08-27 08:20] LABS: ANION GAP 3 mmol/L (5-15); BLOOD UREA NITROGEN 48 mg/dL (7-18); CALCIUM 8.4 MG/DL (8.5-10.1); CARBON DIOXIDE 32 MMOL/L (21-32); CHLORIDE 108 MMOL/L (98-107); CREATININE 0.5 MG/DL (0.55-1.30); POTASSIUM 4.4 MMOL/L (3.5-5.1); SODIUM 143 MMOL/L (136-145)
[2018-08-27] MEDS: Zinc Sulfate 220mg cap GT SCH (08:36)
[2018-08-27] MEDS ORDERED: Epoetin Alfa-EPBX (NON ESRD)10,000 unit/ml vial SUBQ ONE (09:00)
--- NOTE | 2018-08-27 10:50 | NUR ---
NURSE NOTES: reported to dr cruz that family member refused CT abdomen and that patient is ready for car pick up driver going back to [facility].
--- NOTE | 2018-08-27 10:58 | NUR ---
NURSE NOTES: patient left facility at 1100 via [facility]. patient is not on apparent distress. stable. manager monitoring removed. PICC line will remain, per dr pedraza IV ATB will be given in the facility. report given to luisito of [facility]. patient is going to room 120A. left a message to dr cruz and dr pedraza that family member refused CT abdomen. dr pedraza acknowledged the report.
[2018-08-27] MEDS ORDERED: Warfarin Sodium 4mg PO ONE (17:00)
--- NOTE | 2018-08-28 11:15 | Discharge Summary ---
Discharge Summary Discharge Summary _ DATE OF ADMISSION: 08/23/2018 DATE OF DISCHARGE: 08/27/2018 DISCHARGED BY: Dr. Mclaughlin REASON FOR ADMISSION: 88 years old female with past medical history of COPD, pneumonia, respiratory failure, DVT/PE, dehydration, malnutrition, UTI, dementia, Parkinson disease, was sent from the [facility] facility for evaluation of dyspnea and fever. At the outside facility patient had gram-negative bacilli in blood and was initiated on fluoroquinolone. Overnight patient became short of breath and was desaturated. Upon evaluation in emergency department vital signs revealed low-grade fever, tachypnea and hypoxia. Patient was placed on the BiPAP. Laboratory work-up revealed sodium 163. BUN 100, creatinine 1.1. Troponin -0.077. EKG reveals sinus rhythm, no acute ischemic changes. AST 58 , ALT 81. CBC revealed significant leukocytosis WBC 32.7, hemoglobin 9.6 , hematocrit 32.4 , platelet count 279. Lactic acid 1.8. Chest x-ray revealed evidence of probable pneumonia Urinalysis with evidence of UTI. Patient subsequently admitted to [facility] for further management. CONSULTANTS: pulmonary Dr. Lovett ID specialist Dr. Heart surgery Dr. Lott [facility] COURSE: Patient admitted to [facility]. Patient initially was on the BiPAP. Warehouse Shift Supervisor followed. Patient was followed up with serial ABG Patient eventually was able to be weaned from the BiPAP to 30% face mask. Pulmonary toilet provided. Warehouse Shift Supervisor recommended BiPAP at nighttime and as needed 15/6. Antibiotic provided as per ID specialist recommendation. Blood culture revealed Pseudomonas. Urine culture revealed Proteus. Sputum culture revealed MRSA. Patient had gram-negative bacteremia in outside facility. Source was unclear intra-abdominal versus PICC line. PICC line was discontinued and a new PICC line was placed Culture old the PICC line tip catheter was negative. Joyner catheter was replaced. Abdominal ultrasound revealed no acute pathology. Repeated blood cultures were negative. Leukocytosis trended down from initial 32.7 down to 14.3 upon discharge. Low-grade fevers resolved . Patient also had a sacral decubitus ulcer with osteomyelitis; recently completed 10 weeks of the IV Zosyn. Patient will need to complete antibiotic course at the facility as per ID specialist recommendation. Surgeon followed. Patient presented with multiply pressure injuries.. Wound care for sacral decubitus ulcer and for other multiply pressure injuries provided as per the surgeon recommendation. Continue wound care at the facility. Strict aspiration precaution maintained. Tube feeding formula and protein supplements provided as per endoscopy registered nurse recommendation to improve nutritional status. Renal parameters and electrolytes were closely monitored. Electrolytes corrected as needed, and nephrotoxins were avoided. Hypernatremia resolved; sodium 143 prior to discharge. BUN from 100 down to 48. Patient was on Coumadin due to prior history of DVT /PE with dosing to keep INR in therapeutic range. Pain management addressed as needed. Home medication resumed. Sinemet and Ropinirole continued. Bowel regimen instituted. Supportive care provided. Patient clinically stabilized and was ready for transfer back to [facility] facility FINAL DIAGNOSES: Sepsis likely secondary to pneumonia and UTI Pseudomonas bacteremia Acute hypoxemic respiratory failure on chronic Healthcare associated pneumonia with MRSA Urinary tract infection with Proteus Hypernatremia-resolved Dehydration Dementia History of DVT/PE Parkinson's disease Sacral decubitus ulcer stage IV present on admission Dysphagia, G tube feeding Severe malnutrition DISCHARGE MEDICATIONS: See Medication Reconciliation list. DISCHARGE INSTRUCTIONS: Patient was discharged to the [facility] facility. Follow up with medical doctor at the facility. I have been assigned to dictate discharge summary for this account. I was not involved in the patient's management. Majo Padilla NP Aug 28, 2018 11:15
== END 2018-08-27 11:00 | DRG 871 ==
LOC: EDBD 03:42 → EMR 04:09 → EDBEDREQ 04:47 → 2W 04:50 → EDBEDREQ 05:35
PROC: 5A09457 Assistance with Respiratory Ventilation, 24-96 Consecutive Hours, Continuous Positive Airway Pressure (ICD-10-PCS; principal; 2018-08-23)
DX: A41.9 Sepsis, unspecified organism (principal); L89.154 Pressure ulcer of sacral region, stage 4; J96.21 Acute and chronic respiratory failure with hypoxia; E43 Unspecified severe protein-calorie malnutrition; J15.212 Pneumonia due to Methicillin resistant Staphylococcus aureus; N17.9 Acute kidney failure, unspecified; E87.0 Hyperosmolality and hypernatremia; N39.0 Urinary tract infection, site not specified; Z43.1 Encounter for attention to gastrostomy; R65.20 Severe sepsis without septic shock; E86.0 Dehydration; Z68.22 Body mass index [BMI] 22.0-22.9, adult; J44.9 Chronic obstructive pulmonary disease, unspecified; Z86.718 Personal history of other venous thrombosis and embolism; Y95 Nosocomial condition; B96.4 Proteus (mirabilis) (morganii) as the cause of diseases classified elsewhere; G20 Parkinson's disease; F02.80 Dementia in other diseases classified elsewhere, unspecified severity, without behavioral disturbance, psychotic disturbance, mood disturbance, and anxiety; R13.10 Dysphagia, unspecified; Z86.73 Personal history of transient ischemic attack (TIA), and cerebral infarction without residual deficits; M40.209 Unspecified kyphosis, site unspecified; K21.9 Gastro-esophageal reflux disease without esophagitis; Z88.8 Allergy status to other drugs, medicaments and biological substances; K44.9 Diaphragmatic hernia without obstruction or gangrene
CPT/HCPCS: 36415; 36569; 36600; 71045; 76700; 76937; 80048; 80053; 81003; 82550; 82553; 82803; 83605; 84484; 85007; 85025; 85610; 87040; 87070; 87081; 87086; 87181; 87205; 93005; 94640; 94660; 94664; 96361; 96365; 96367; 99291

== ENCOUNTER 2018-09-02 16:20 | Inpatient (IN) | payer MEDICARE, BC ==
[~2018-09-02] VITALS: Ht 152.4 cm; Wt 49.9 kg
[~2018-09-02 16:20] MED LIST changes: +FUROSEMIDE20 M1 ORAL; +IPRATROPIU0.2 MG/1 M HHN; +SINEMET CR 25/101 EA ORAL
--- NOTE | 2018-09-02 16:20 | NUR ---
ED Nurse Note: Pt BIB [id number] from SNF, reports pt has been having SOB x15 minutes attempted to put on BiPAP. Pt on norebreathing mask saturating 100%, nonverbal. PICC line on left upper arm noted.
--- NOTE | 2018-09-02 16:35 | NUR ---
ED Nurse Note: RT at bedside for BiPAP. current settings 15/5 FiO2 50% saturating 93%
[2018-09-02 16:43] VITALS: BP 92/51
--- NOTE | 2018-09-02 17:25 | NUR ---
ED Nurse Note: Attempted to give report to sdu nurse, unavailable at this time.
[2018-09-02 17:26] LABS: HEMATOCRIT 25.5 % (37.0-47.0); HEMOGLOBIN 7.6 G/DL (12.0-16.0); MEAN CORPUSCULAR VOLUME 89 FL (80-99); PLATELET COUNT 149 K/UL (150-450); RED BLOOD COUNT 2.85 M/UL (4.20-5.40); RED CELL DISTRIBUTION WIDTH 17.1 % (11.6-14.8); WHITE BLOOD COUNT 14.1 K/UL (4.8-10.8)
[2018-09-02 17:38] LABS: ANION GAP 4 mmol/L (5-15); BLOOD UREA NITROGEN 60 mg/dL (7-18); CARBON DIOXIDE 31 MMOL/L (21-32); CHLORIDE 116 MMOL/L (98-107); CREATININE 0.7 MG/DL (0.55-1.30); POTASSIUM 5.2 MMOL/L (3.5-5.1); SODIUM 151 MMOL/L (136-145)
[2018-09-02 17:48] LABS: APPEARANCE,URINE SLIGHTLY CLOUDY; BILIRUBIN, URINE NEGATIVE (NEGATIVE); COLOR,URINE PALE YELLOW; GLUCOSE, URINE (UA) NEGATIVE (NEGATIVE); KETONES,URINE NEGATIVE (NEGATIVE); LEUKOCYTE ESTERASE ,URINE 3+ (NEGATIVE); NITRITE,URINE NEGATIVE (NEGATIVE); PH,URINE 6 (4.5-8.0); PROTEIN,URINE 1+ (NEGATIVE); UROBILINOGEN,URINE NORMAL MG/DL (0.0-1.0)
[2018-09-02 17:49] LABS: ALANINE AMINOTRANSFERASE 35 U/L (12-78); ALBUMIN 1.7 G/DL (3.4-5.0); ALBUMIN/GLOBULIN RATIO 0.3 (1.0-2.7); ALKALINE PHOSPHATASE 93 U/L (46-116); ASPARTATE AMINO TRANSFERASE 35 U/L (15-37); BILIRUBIN,TOTAL 0.3 MG/DL (0.2-1.0)
[2018-09-02 17:53] VITALS: BP 90/52
--- NOTE | 2018-09-02 17:59 | NUR ---
NURSE NOTES: Received telephone report from Debbie HERRMANN.
--- NOTE | 2018-09-02 17:59 | NUR ---
ED Nurse Note: Report given to ALIZE Nugent.
--- NOTE | 2018-09-02 18:14 | Diagnostic Imaging Report ---
EXAM: XR Chest, 1 View CLINICAL HISTORY: SOB TECHNIQUE: Frontal view of the chest. COMPARISON: 08/23/18. FINDINGS: Increasing basilar-predominant opacities, likely combination of pleural effusions and atelectasis/consolidation. Suspect a component of vascular congestion as well. The cardiac contour is not well assessed due to adjacent opacities, but is likely mildly enlarged. Interval removal of a right subclavian line. Interval placement of left arm PICC, tip deep in the right atrium. Degenerative changes. IMPRESSION: Increasing basilar opacity, likely combination of pleural fluid and atelectasis/consolidation. Question vascular congestion and cardiomegaly. Interval placement of left arm PICC, tip deep in the right atrium.
--- NOTE | 2018-09-02 18:34 | NUR ---
TRANSFER TO FLOOR: Patient transferred to SDU 243-2, acls protocol as ordered. Report given to ALIZE Nugent. Patient in stable condition. Family at bedside.
--- NOTE | 2018-09-02 18:35 | NUR ---
NURSE NOTES: Pt. arrived at the unit 1834. No sign of distress. On Bipap 15/5 and FiO2 60%. No grimacing noted. PICC line at left upper arm in placed running Levaquin IVPB ATB. Pt. daughter at bedside for support.
--- NOTE | 2018-09-02 19:35 | NUR ---
HAND-OFF: Report given to Ho RN. Pt. remain stable.
--- NOTE | 2018-09-02 19:36 | NUR ---
NURSE NOTES: Received patient from Jovanna HERRMANN. Patient is obtunded and receiving oxygen via Bipap, settings 12/5 FiO2 60%. Patient has a Left Upper arm PICC line, patent and asymptomatic. IV site is left forearm 22g patent and asymptomatic. Patient has a G-tube that is patent and intact. Joyner catheter is patent and draining. Bed is locked, placed in lowest position, side rails up x3, bed alarm on, family is at bed side. Will continue to monitor.
[2018-09-02 19:45] LABS: INR 1.5 (0.9-1.1)
[2018-09-02 20:00] VITALS: BP 98/58
[2018-09-02] MEDS ORDERED: Cefepime 2gm IV SCH (20:00)
--- NOTE | 2018-09-02 20:00 | History and Physical Report ---
DATE OF ADMISSION: 09/02/2018 REASON FOR ADMISSION: 1. Respiratory failure. 2. Hypernatremia. 3. Hyperkalemia. HISTORY OF PRESENT ILLNESS: The patient is an 88-year-old female, well known to my service. I see her here at [facility]. The patient has a G-tube and is on tube feeds. She cannot clear her secretions and she does not swallow her saliva. Once again, the patient has developed respiratory distress and oxygen desaturation. She had been on BiPAP at the facility. However, she has failed BiPAP and respiratory rate was very fast. As such, she was sent to the emergency room for further evaluation. Noted to have a serum sodium 152, potassium 5.2, elevated white count of 14.1, and hemoglobin of 7.9. ALLERGIES: Strawberries and valsartan. PAST MEDICAL HISTORY: 1. Respiratory failure. 2. COPD. 3. Pneumonia. 4. DVT. 5. Malnutrition. 6. Dehydration. 7. Urinary tract infection. 8. Dementia. 9. Respiratory failure, recurrent. SOCIAL HISTORY: No tobacco, alcohol, or illicit drug use. PAST SURGICAL HISTORY: Status post G-tube placement. FAMILY HISTORY: Positive for hypertension. REVIEW OF SYSTEMS: Cannot obtain as the patient is nonverbal. PHYSICAL EXAMINATION: GENERAL: The patient is still mildly arousable and nonverbal. HEENT: Extraocular muscles intact. No lymphadenopathy noted. CARDIOVASCULAR: S1, S2. No rubs or gallops. PULMONARY: rhonchi with basilar rales. ABDOMEN: Nondistended and nontender. EXTREMITY: Trace edema in the upper thigh area. LABORATORY DATA: Laboratories dated 09/02/2018, white cell count 14.1, hemoglobin 7.6, and platelet count 149,000. Sodium 151, potassium 5.2, and creatinine 0.7. Troponin 0.073. Albumin 1.7. ASSESSMENT AND PLAN: 1. Hypernatremia secondary to intravascular volume depletion. We will gently hydrate the patient with free water. 2. Hypotension. The patient is currently 90/52. We will fluid bolus 500 mL of normal saline. 3. Sepsis. The patient recently had gram-negative bacteremia along with underlying pneumonia. She is to continue her vancomycin and cefepime. 4. Respiratory failure. Continue her BiPAP and Pulmonary to continue to adjust settings. 5. Hyperkalemia is very mild at this time. No further management. We will continue to monitor carefully. 6. Anemia. We will continue Epogen. 7. DVT. The patient is on Coumadin. Pharmacy to dose. Jeremiah Mclaughlin MD DR: VIRGINIE JOB#: [id number] CC:
[2018-09-02] MEDS ORDERED: Warfarin Sodium 5mg ORAL SCH (21:00)
--- NOTE | 2018-09-02 21:07 | Emergency Room Report ---
History of Present Illness General Chief Complaint: Dyspnea/Respdistress Source: Family Member, Medical Record Present Illness HPI 88-year-old female presents ED for evaluation. Brought in by EMS from half-way facility. Noted to be in increased respiratory distress with congestion and desaturation. Placed on oxygen. Patient is nonverbal at baseline. Unable to provide any additional history at this time. Daughter at bedside states that patient was recently discharged from here about 1 week ago for treatment of pneumonia. He was currently receiving IV antibiotics through PICC line at the half-way facility however her symptoms worsen today. Patient is DNR, selective. No other aggravating relieving factors. Denies any other associated symptoms Allergies: Coded Allergies: STRAWBERRY (Verified Allergy, Unknown, Rash, 06/29/13) COPIED FROM UNCODED SECTION VALSARTAN (Verified Allergy, Unknown, 03/09/11) Patient History Past Medical History: COPD, GERD, dementia - parkinsons, other - PE Past Surgical History: none Pertinent Family History: none Social History: Denies: smoking, alcohol use, drug use Now: No Immunizations: UTD Reviewed Nursing Documentation: PMH: Agreed; PSxH: Agreed Nursing Documentation-PMH Past Medical History: No History, Except For Hx Cardiac Problems: Yes - P.E. Hx Hypertension: Yes Hx COPD: Yes - emphysema Hx Cancer: No Hx Gastrointestinal Problems: Yes - GASTROSTOMY; GERD Hx Neurological Problems: Yes - PARKINSONS; MUSCLE WEAKNESS Hx Transient Ischemic Attacks: Yes Hx Dementia: Yes Hx Parkinson's Disease: Yes Hx Multiple Sclerosis: Yes Hx Memory Loss: Yes Hx Tremors: Yes Hx Weakness: Yes Review of Systems All Other Systems: limited Physical Exam Vital Signs Date Time Temp Pulse Resp B/P (MAP) Pulse Ox O2 Delivery O2 Flow Rate FiO2 09/02/18 16:17 88 30 86/41 (56) 98 Non-Rebreather 15.0 09/02/18 16:43 50 09/02/18 16:43 98.9 Sp02 EP Interpretation: reviewed, normal General Appearance: other - nonverbal Head: normocephalic Eyes: bilateral eye normal inspection, bilateral eye PERRL ENT: hearing grossly normal, normal pharynx, no angioedema, normal voice Neck: full range of motion, supple/symm/no masses Respiratory: crackles Cardiovascular #1: regular rate, rhythm, no edema Gastrointestinal: normal bowel sounds, non tender, soft, non-distended, no guarding, no rebound Rectal: deferred Genitourinary: no CVA tenderness Musculoskeletal: normal inspection Neurologic: other - nonverbal Psychiatric: other - nonverbal Skin: other - see nursing skin notes Lymphatic: normal inspection Medical Decision Making Diagnostic Impression: Primary Impression: Respiratory distress Additional Impressions: Respiratory failure Qualified Codes: J96.90 - Respiratory failure, unspecified, unspecified whether with hypoxia or hypercapnia Elevated troponin PNA (pneumonia) Qualified Codes: J18.9 - Pneumonia, unspecified organism ER Course Hospital Course 88 yo F presents to ED for respiratory distress. currently treated for pneumonia with IV antibiotics at [facility] Differential diagnoses include: Pneumonia, CHF exacerbation, pneumothorax, fluid overload Clinical course Patient placed on stretcher. On site monitor. Started on BiPAP. After initial history and physical, I ordered labs, IV fluids, EKG, chest x-ray, blood cultures, UA. Labs - noted leukocytosis, hb/hct stable, Na and K elevated, BUN elevated, trop 0.073, BNP elevated CXR - increasing basilar opacities. ABG shows no signs of hypercapnia or hypoxia Patient given antibiotics. Case discussed with Dr. Mclaughlin and he agreed to the patient to his service for further care and support I feel this is a highly complex case requiring extensive working including EKG/ Rhythm strip, Xray/CT/US, Blood/urine lab work, repeat exams while in ED, and administration of strong opiates/narcotics for pain control, admission to hospital or close patient follow up. Diagnosis - elevated troponin, respiratory failure, respiratory distress, pneumonia Patient admitted to SDU in serious condition Labs Test 09/02/18 16:34 09/02/18 16:35 09/02/18 17:30 Arterial Blood pH 7.377 (7.350-7.450) Arterial Blood Partial Pressure CO2 47.9 mmHg (35.0-45.0) Arterial Blood Partial Pressure O2 158.6 mmHg (75.0-100.0) Arterial Blood HCO3 27.5 mmol/L (22.0-26.0) Arterial Blood Oxygen Saturation 98.5 % (95-100) Arterial Blood Base Excess 2.0 (-2-2) Cruzito Test Positive White Blood Count 14.1 K/UL (4.8-10.8) Red Blood Count 2.85 M/UL (4.20-5.40) Hemoglobin 7.6 G/DL (12.0-16.0) Hematocrit 25.5 % (37.0-47.0) Mean Corpuscular Volume 89 FL (80-99) Mean Corpuscular Hemoglobin 26.6 PG (27.0-31.0) Mean Corpuscular Hemoglobin Concent 29.8 G/DL (32.0-36.0) Red Cell Distribution Width 17.1 % (11.6-14.8) Platelet Count 149 K/UL (150-450) Mean Platelet Volume 9.9 FL (6.5-10.1) Neutrophils (%) (Auto) % (45.0-75.0) Lymphocytes (%) (Auto) % (20.0-45.0) Monocytes (%) (Auto) % (1.0-10.0) Eosinophils (%) (Auto) % (0.0-3.0) Basophils (%) (Auto) % (0.0-2.0) Prothrombin Time 15.9 SEC (9.30-11.50) Prothromb Time International Ratio 1.5 (0.9-1.1) Sodium Level 151 MMOL/L (136-145) Potassium Level 5.2 MMOL/L (3.5-5.1) Chloride Level 116 MMOL/L (98-107) Carbon Dioxide Level 31 MMOL/L (21-32) Anion Gap 4 mmol/L (5-15) Blood Urea Nitrogen 60 mg/dL (7-18) Creatinine 0.7 MG/DL (0.55-1.30) Estimat Glomerular Filtration Rate mL/min (>60) Glucose Level 122 MG/DL (74-106) Lactic Acid Level 1.10 mmol/L (0.4-2.0) Calcium Level 9.0 MG/DL (8.5-10.1) Total Bilirubin 0.3 MG/DL (0.2-1.0) Aspartate Amino Transf (AST/SGOT) 35 U/L (15-37) Alanine Aminotransferase (ALT/SGPT) 35 U/L (12-78) Alkaline Phosphatase 93 U/L (46-116) Troponin I 0.073 ng/mL (0.000-0.056) Pro-B-Type Natriuretic Peptide 4380 pg/mL (0-125) Total Protein 6.6 G/DL (6.4-8.2) Albumin 1.7 G/DL (3.4-5.0) Globulin 4.9 g/dL Albumin/Globulin Ratio 0.3 (1.0-2.7) Urine Color Pale yellow Urine Appearance Slightly cloudy Urine pH 6 (4.5-8.0) Urine Specific [place] 1.010 (1.005-1.035) Urine Protein 1+ (NEGATIVE) Urine Glucose (UA) Negative (NEGATIVE) Urine Ketones Negative (NEGATIVE) Urine Blood 3+ (NEGATIVE) Urine Nitrite Negative (NEGATIVE) Urine Bilirubin Negative (NEGATIVE) Urine Urobilinogen Normal MG/DL (0.0-1.0) Urine Leukocyte Esterase 3+ (NEGATIVE) Urine RBC 15-20 /HPF (0 - 2) Urine WBC 20-30 /HPF (0 - 2) Urine Squamous Epithelial Cells Many /LPF (NONE/OCC) Urine Bacteria Many /HPF (NONE) Urine Yeast Many /HPF (NONE) EKG Diagnostic Results Rate: normal Rhythm: NSR ST Segments: no acute changes Rhythm Strip Diag. Results EP Interpretation: yes Rhythm: NSR, no PVC's, no ectopy Chest X-Ray Diagnostic Results Chest X-Ray Diagnostic Results : Chest X-Ray Ordered: Yes # of Views/Limited/Complete: 1 View Indication: Shortness of Breath EP Interpretation: Yes Interpretation: no pneumothorax, other - increasing basilar opacity Impression: Other - pneumonia Electronically Signed by: Electronically signed by Fernando Su MD Last Vital Signs Date Time Temp Pulse Resp B/P (MAP) Pulse Ox O2 Delivery O2 Flow Rate FiO2 09/02/18 19:32 98.9 68 26 90/52 95 Bi-pap 60 09/02/18 16:17 15.0 Status: improved Disposition: ADMITTED INPATIENT Condition: Serious Referrals: Jeremiah Mclaughlin MD (PCP) Fernando Su MD Sep 02, 2018 21:07
[2018-09-02] MEDS: Cefepime 2gm/D5W 110ml IV SCH ×2 (21:18)
--- NOTE | 2018-09-02 21:25 | Consultation ---
Consult Note Assessment/Plan [id number] resepriatory failure pna uti sepisi PCM HILARY on cpap \dyspahgia GT Marii Neal DO Sep 02, 2018 21:25
[2018-09-03] VITALS: BP 105/55
[2018-09-03 04:00] VITALS: BP 100/55
--- NOTE | 2018-09-03 05:00 | Consultation ---
DATE OF CONSULTATION: 09/02/2018 PULMONARY CONSULTATION REASON FOR CONSULTATION: Respiratory failure. HISTORY OF PRESENT ILLNESS: The patient was noted to be in respiratory distress facility, initially placed on oxygen, similarly will be placed on BiPAP. She does have a history of sleep apnea and is on CPAP at her facility, but is currently being placed on a 24-hour. The patient is nonverbal at baseline, does not follow commands. Currently, no distress. No nausea, vomiting, or diarrhea. She was discharged from this facility about a week ago for underlying pneumonia, suspected for aspiration. She is on G-tube feedings at 65 mL an hour. PAST MEDICAL HISTORY: COPD, GERD, dementia, Parkinson disease, and pulmonary embolism. SOCIAL HISTORY: Negative for tobacco or drugs. CURRENT MEDICATIONS: Pre-hospital and present medications have been reviewed, reconciled, and documented in the electrical medical record by dose, frequency, and route. FAMILY HISTORY: Unavailable. REVIEW OF SYSTEMS: Unavailable. ALLERGIES: She has no known drug allergies. SURGICAL HISTORY: Includes G-tube. PHYSICAL EXAMINATION: At the time of my exam, she was obtunded. She is on BiPAP 10/5, tidal volume ____ 350, 45%, saturating at 100%. GENERAL: She is in no acute respiratory distress. She is afebrile. VITAL SIGNS: Pulse is 63, respirations are 24, and blood pressure is 90/52. HEENT: She is normocephalic and atraumatic. Oropharynx is dry. Nasal mucosa is dry. NECK: Supple. No lymphadenopathy. LUNGS: Decreased at the bases. Scattered rhonchi. HEART: Regular rate and rhythm without murmur. ABDOMEN: Soft, nontender. Positive bowel sounds. EXTREMITIES: Positive edema diffusely. SKIN: She has skin rashes and fluid have been documented in the nursing notes. LABORATORY AND DIAGNOSTIC DATA: Her white count is 14.1, hemoglobin 7.6, and platelets are 149,000. Her sodium is 151, potassium 5.2, chloride 116, bicarb 31, BUN is 60, creatinine 0.7, and glucose is 122. Her troponin is 0.073. Her NPA is elevated at 43.8. Her albumin is 1.7. Her urinalysis is positive for leukocyte esterase. A chest x-ray was obtained in the emergency room, which demonstrates bibasilar opacities with pleural fluid, atelectasis, and possible consolidation. ASSESSMENT AND PLAN: 1. Respiratory failure. 2. Urinary tract infection. 3. Aspiration pneumonia. 4. Protein-calorie malnutrition. 5. Diffuse edema. 6. Gastroesophageal reflux disease. 7. Parkinson disease. PLAN: Plan for the patient, continue on BiPAP. Repeat blood gas in the morning. Follow up her chest x-ray. IV antibiotics, nebulizers, O2 to maintain saturations greater ____. DVT prophylaxis. We will also maintain her tube feeds at 40 mL an hour with being on continuous BiPAP and strict aspiration precautions. Coumadin per pharmacy. Follow her cultures and ____ her antibiotics accordingly. We will continue to follow this patient for the remainder of her hospital stay. Marii Neal D.O. DR: [place] JOB#: [id number] CC:
[2018-09-03 06:04] LABS: HEMATOCRIT 32.9 % (37.0-47.0); HEMOGLOBIN 10.8 G/DL (12.0-16.0); MEAN CORPUSCULAR VOLUME 87 FL (80-99); PLATELET COUNT 148 K/UL (150-450); RED BLOOD COUNT 3.78 M/UL (4.20-5.40); RED CELL DISTRIBUTION WIDTH 14.1 % (11.6-14.8); WHITE BLOOD COUNT 20.6 K/UL (4.8-10.8)
[2018-09-03 07:09] LABS: ANION GAP 8 mmol/L (5-15); BLOOD UREA NITROGEN 24 mg/dL (7-18); CALCIUM 7.4 MG/DL (8.5-10.1); CARBON DIOXIDE 26 MMOL/L (21-32); CHLORIDE 113 MMOL/L (98-107); CREATININE 1.1 MG/DL (0.55-1.30); POTASSIUM 3.6 MMOL/L (3.5-5.1); SODIUM 147 MMOL/L (136-145)
--- NOTE | 2018-09-03 07:13 | NUR ---
HAND-OFF: Report given to Ebony HERRMANN. Patient in stable condition.
--- NOTE | 2018-09-03 07:32 | NUR ---
NURSE NOTES: received patient report from edelmira rn. patient is on bed asleep. on bipap at prescribed rate. not in acute distress. under the care of dr pedraza. on air loss matress. bed is low and locked for safety. will follow plan of care.
[2018-09-03 08:00] VITALS: BP 119/57
[2018-09-03] MEDS: Levodopa/Carbidopa 25/250 tab GT SCH ×2 (08:07→11:44)
--- NOTE | 2018-09-03 08:20 | Nephrology Progress Note ---
Assessment/Plan Assessment/Plan: A/P 1) Resp FL- chronic. Original ABG stable at admission - remove BiPAP, repeat ABG at 1030 and then DC to NH if stable 2) Bacteremia- known. Continue Vanc and Cefepime 3) Anemia- labs error? Hgb went 7.6--10,6 and WBC worsened. - continue Anx and EPO. DC and follow at NH 4) Hyperkalemia- resolved 5) Hypernatremia- resolved DC today Subjective Date patient seen: Sep 03, 2018 Time patient seen: 08:14 ROS Limited/Unobtainable: Yes Allergies: Coded Allergies: STRAWBERRY (Verified Allergy, Unknown, Rash, 06/29/13) COPIED FROM UNCODED SECTION VALSARTAN (Verified Allergy, Unknown, 03/09/11) Subjective Patient with change from baseline Objective Last 24 Hour Vital Signs Date Time Temp Pulse Resp B/P (MAP) Pulse Ox O2 Delivery O2 Flow Rate FiO2 09/03/18 08:00 97.2 52 17 119/57 (77) 99 09/03/18 07:38 55 24 98 Bi-Pap 60 09/03/18 07:36 55 17 98 Full Face 35 09/03/18 05:25 50 17 97 Full Face 35 09/03/18 04:00 97.7 57 18 100/55 (70) 100 09/03/18 04:00 35 09/03/18 04:00 Bi-pap 09/03/18 04:00 52 09/03/18 03:33 52 17 98 Full Face 35 09/03/18 01:30 53 18 100 Full Face 35 09/03/18 00:00 35 09/03/18 00:00 97.5 55 19 105/55 (72) 100 09/03/18 00:00 54 09/03/18 00:00 Bi-pap 09/02/18 23:30 60 22 98 Facial 45 09/02/18 21:23 63 24 99 Facial 45 09/02/18 20:42 Bi-pap 09/02/18 20:00 97.7 58 16 98/58 (71) 100 09/02/18 19:32 98.9 68 26 90/52 95 Bi-pap 60 09/02/18 19:30 86 23 95 Facial 60 09/02/18 17:53 98.9 81 24 90/52 95 Bi-pap 60 09/02/18 16:51 88 24 94 Bi-Pap 60 09/02/18 16:51 88 24 94 Facial 60 09/02/18 16:43 98.9 81 30 92/51 98 Bi-pap 50 09/02/18 16:43 81 30 Bi-pap 50 09/02/18 16:17 88 30 86/41 (56) 98 Non-Rebreather 15.0 Intake and Output 09/02/18 09/03/18 19:00 07:00 Intake Total 808.83 ml Output Total 850 ml Balance -41.17 ml Intake Oral 0 ml Free Water 0 ml IV Total 633.83 ml Tube Feeding 175 ml Output Urine Total 850 ml Laboratory Tests 09/02/18 16:34: Arterial Blood pH 7.377, Arterial Blood Partial Pressure CO2 47.9H, Arterial Blood Partial Pressure O2 158.6H, Arterial Blood HCO3 27.5H, Arterial Blood Oxygen Saturation 98.5, Arterial Blood Base Excess 2.0, Cruzito Test Positive 09/02/18 16:35: White Blood Count 14.1H, Red Blood Count 2.85L, Hemoglobin 7.6L, Hematocrit 25.5L, Mean Corpuscular Volume 89, Mean Corpuscular Hemoglobin 26.6L, Mean Corpuscular Hemoglobin Concent 29.8L, Red Cell Distribution Width 17.1H, Platelet Count 149L, Mean Platelet Volume 9.9, Neutrophils (%) (Auto) , Lymphocytes (%) (Auto) , Monocytes (%) (Auto) , Eosinophils (%) (Auto) , Basophils (%) (Auto) , Prothrombin Time 15.9H, Prothromb Time International Ratio 1.5H, Sodium Level 151H, Potassium Level 5.2H, Chloride Level 116H, Carbon Dioxide Level 31, Anion Gap 4L, Blood Urea Nitrogen 60H, Creatinine 0.7, Estimat Glomerular Filtration Rate , Glucose Level 122H, Lactic Acid Level 1.10 , Calcium Level 9.0, Total Bilirubin 0.3, Aspartate Amino Transf (AST/SGOT) 35, Alanine Aminotransferase (ALT/SGPT) 35, Alkaline Phosphatase 93, Troponin I 0.073H, Pro-B-Type Natriuretic Peptide 4380H, Total Protein 6.6, Albumin 1.7L, Globulin 4.9, Albumin/Globulin Ratio 0.3L 09/02/18 17:30: Urine Color Pale yellow, Urine Appearance Slightly cloudy, Urine pH 6, Urine Specific [place] 1.010, Urine Protein 1+H, Urine Glucose (UA) Negative, Urine Ketones Negative, Urine Blood 3+H, Urine Nitrite Negative, Urine Bilirubin Negative, Urine Urobilinogen Normal, Urine Leukocyte Esterase 3+H, Urine RBC 15- 20H, Urine WBC 20-30H, Urine Squamous Epithelial Cells ManyH, Urine Bacteria ManyH, Urine Yeast ManyH 09/03/18 04:00: White Blood Count 20.6H, Red Blood Count 3.78L, Hemoglobin 10.8#L, Hematocrit 32.9L, Mean Corpuscular Volume 87, Mean Corpuscular Hemoglobin 28.6, Mean Corpuscular Hemoglobin Concent 32.8, Red Cell Distribution Width 14.1, Platelet Count 148L, Mean Platelet Volume 7.8, Neutrophils (%) (Auto) , Lymphocytes (%) ( Auto) , Monocytes (%) (Auto) , Eosinophils (%) (Auto) , Basophils (%) (Auto) , Sodium Level 147H, Potassium Level 3.6, Chloride Level 113H, Carbon Dioxide Level 26, Anion Gap 8, Blood Urea Nitrogen 24H, Creatinine 1.1#, Estimat Glomerular Filtration Rate , Glucose Level 103, Calcium Level 7.4L, Neutrophils % (Manual) [Pending], Lymphocytes % (Manual) [Pending], Platelet Estimate [ Pending], Platelet Morphology [Pending] Height (Feet): 5 Height (Inches): 0.00 Weight (Pounds): 110 General Appearance: no apparent distress EENT: normal ENT inspection Neck: normal alignment, supple Cardiovascular: normal rate, regular rhythm Respiratory/Chest: rhonchi - bilaterally Abdomen: non tender, soft Edema: no edema noted Arm (L), no edema noted Arm (R), no edema noted Leg (L), no edema noted Leg (R), no edema noted Pedal (L), no edema noted Pedal (R), no edema noted Generalized Jeremiah Mclaughlin MD Sep 03, 2018 08:20
--- NOTE | 2018-09-03 08:25 | Discharge Instructions ---
Discharge Instructions Discharge Instructions Services at Discharge: day care Diet: tube feeding Resume Normal Activity?: Yes Follow Up Orders Continue Vanc and Cefipime total 10 days For Congestive Heart Failure Reminder Report to your physician any weight gain of 5 pounds or more in one week. Jeremiah Mclaughlin MD Sep 03, 2018 08:25
[2018-09-03 08:53] LABS: INR 1.5 (0.9-1.1)
--- NOTE | 2018-09-03 09:00 | NUR ---
NURSE NOTES: dr pedraza order to remove bipap for this patient and abg draw @ 1030 and to call him of the result.will take note and carry out.
--- NOTE | 2018-09-03 11:30 | NUR ---
NURSE NOTES: reported to dr pedraza the result of abg. per dr pedraza dc discharge and pulmo to see today and make reccs. will take note and carry out.
--- NOTE | 2018-09-03 11:35 | NUR ---
NURSE NOTES: family member (daughter) made aware of the discharge cancellation.
[2018-09-03 11:43] VITALS: BP 142/71
[2018-09-03] MEDS ORDERED: Tubing IV Secondary IV ONE (15:16)
--- NOTE | 2018-09-03 16:00 | NUR ---
NURSE NOTES: called dr ruiz and reported abg result, per dr ruiz, put the patient on bipap for now.will carry out.
--- NOTE | 2018-09-03 16:14 | NUR ---
CASE MANAGEMENT: INITIAL REVIEW 88 YO F B[facility] FROM [facility] CC: DYSPNEA PMHx: COPD. GERD. DEMENTIA. PE. HTN. SI:RESP DISTRESS T 98.9 HR 88 RR 30 B/P 86/41 SATS 98% ON 15L/NRB WBC 14.1 HGB 7.6 HCT 25.5 NA 151 K 5.2 CL 116 BUN 60 GLU 122 TROPONIN 0.073 BNP 4380 ABGs PCO2 47.9 PO2 158.6 HCO3 27.5 IS: CEFEPIME IV X1 NS BOLUS X1 LEVAQUIN IV X1 PATIENT ADMITTED TO SDU 09/02/2018 @ 1808 DCP: PATIENT TO BE DISCHARGED TO SNF ONCE MEDICALLY CLEARED PLAN OF CARE: PULMO CONSULT Addendum: 09/03/18 at 1853 by Gail Coley CM INTERQUAL MET
[2018-09-03] MEDS ORDERED: Warfarin Sodium 5mg ORAL SCH (17:00)
--- NOTE | 2018-09-03 19:01 | NUR ---
HAND-OFF: Report given to gurinder lucia.
--- NOTE | 2018-09-03 19:20 | NUR ---
NURSE NOTES: Received report from Ebony HERRMANN, pt. received in bed obtunded, opens eyes, no signs or symptoms of acute cardiac or respiratory distress noted, bed in lowest position and call light within easy reach, bed alarm on, side rails up x's 3 and safety brakes engaged, athletic monitor on, pt. appears to be sating sating well on BIPAP 15/5 Fio2 at 35%- no distress noted, Glucerna 1.5 running via G tube at 40cc/hr- no residual noted, Joyner intact and draining to gravity, pt appears to be clean and dry, comfort measures provided, FERNANDEZ PICC intact and patent, LFA 22G IV running D5W at 70cc/hr- IV intact and patent, safety measures continued, will continue with plan of care.
[2018-09-03] MEDS ORDERED: ASCORBIC ACID500 MG GT (19:41)
[2018-09-03] MEDS ORDERED: VANCOMYCIN IV (19:41)
[2018-09-03] MEDS ORDERED: CEFEPIME-D2 GM/50 ML IVPB (19:41)
[2018-09-03] MEDS ORDERED: MIRTAZAPINE15 M3 ORAL (19:41)
[2018-09-03] MEDS ORDERED: JUVEN PACKET1 EAC1 GT (19:41)
[2018-09-03] MEDS ORDERED: FUROSEMIDE20 M1 GT (19:41)
[2018-09-03] MEDS ORDERED: TRAMADOL HCL50 MG ORAL (19:41)
[2018-09-03 20:00] VITALS: BP 120/61
[2018-09-03] MEDS ORDERED: Vancomycin 750mg/NS 275ml IVPB SCH ×2 (20:00)
--- NOTE | 2018-09-03 20:08 | Pulmonology Progress Note ---
Assessment/Plan Assessment/Plan 1. Respiratory failure. 2. Urinary tract infection. 3. Aspiration pneumonia. 4. Protein-calorie malnutrition. 5. Diffuse edema. 6. Gastroesophageal reflux disease. 7. Parkinson disease. trial off bipap in am abg fu cxr nebs diuresis abx wound care tf Subjective ROS Limited/Unobtainable: Yes Allergies: Coded Allergies: STRAWBERRY (Verified Allergy, Unknown, Rash, 06/29/13) COPIED FROM UNCODED SECTION VALSARTAN (Verified Allergy, Unknown, 03/09/11) Subjective attempted to take of bipap difficulty getting abg, 3 tries and suspect VBG obtained (sats 97% prior but ABG reports 89% and PO2 50) [place]ed [place] [id number] no distress nPO Objective Last 24 Hour Vital Signs Date Time Temp Pulse Resp B/P (MAP) Pulse Ox O2 Delivery O2 Flow Rate FiO2 09/03/18 20:00 54 18 100 Bi-Pap 35 09/03/18 17:35 57 18 99 Full Face 35 09/03/18 16:11 58 17 97 Full Face 35 09/03/18 16:00 Bi-pap 2.0 09/03/18 16:00 2.0 35 09/03/18 16:00 58 09/03/18 12:00 Bi-pap 2.0 09/03/18 12:00 62 09/03/18 12:00 2.0 35 09/03/18 11:43 97.3 62 22 142/71 (94) 99 09/03/18 09:00 2.0 35 09/03/18 09:00 Bi-pap 09/03/18 08:00 53 09/03/18 08:00 97.2 52 17 119/57 (77) 99 09/03/18 07:38 55 24 98 Bi-Pap 60 09/03/18 07:36 55 17 98 Full Face 35 09/03/18 05:25 50 17 97 Full Face 35 09/03/18 04:00 97.7 57 18 100/55 (70) 100 09/03/18 04:00 35 09/03/18 04:00 Bi-pap 09/03/18 04:00 52 09/03/18 03:33 52 17 98 Full Face 35 09/03/18 01:30 53 18 100 Full Face 35 09/03/18 00:00 35 09/03/18 00:00 97.5 55 19 105/55 (72) 100 09/03/18 00:00 54 09/03/18 00:00 Bi-pap 09/02/18 23:30 60 22 98 Facial 45 09/02/18 21:23 63 24 99 Facial 45 09/02/18 20:42 Bi-pap Intake and Output 09/02/18 09/03/18 19:00 07:00 Intake Total 808.83 ml Output Total 850 ml Balance -41.17 ml Intake Oral 0 ml Free Water 0 ml IV Total 633.83 ml Tube Feeding 175 ml Output Urine Total 850 ml General Appearance: cachetic HEENT: atraumatic Respiratory/Chest: rhonchi Abdomen: no organomegaly Neurologic/Psychiatric: disoriented Microbiology Date/Time Source Procedure Growth Status 09/02/18 17:30 Urine,Clean Catch Urine Culture - Preliminary NO GROWTH Resulted Laboratory Tests 09/03/18 04:00: White Blood Count 20.6H, Red Blood Count 3.78L, Hemoglobin 10.8#L, Hematocrit 32.9L, Mean Corpuscular Volume 87, Mean Corpuscular Hemoglobin 28.6, Mean Corpuscular Hemoglobin Concent 32.8, Red Cell Distribution Width 14.1, Platelet Count 148L, Mean Platelet Volume 7.8, Neutrophils (%) (Auto) , Lymphocytes (%) ( Auto) , Monocytes (%) (Auto) , Eosinophils (%) (Auto) , Basophils (%) (Auto) , Differential Total Cells Counted 100, Neutrophils % (Manual) 85H, Lymphocytes % (Manual) 6L, Monocytes % (Manual) 6, Eosinophils % (Manual) 0, Basophils % ( Manual) 0, Band Neutrophils 3, Platelet Estimate DecreasedL, Platelet Morphology Normal, Anisocytosis 1+, Sodium Level 147H, Potassium Level 3.6, Chloride Level 113H, Carbon Dioxide Level 26, Anion Gap 8, Blood Urea Nitrogen 24H, Creatinine 1.1#, Estimat Glomerular Filtration Rate , Glucose Level 103, Calcium Level 7.4L 09/03/18 08:15: Prothrombin Time 15.4H, Prothromb Time International Ratio 1.5H 09/03/18 10:31: Arterial Blood pH 7.456H, Arterial Blood Partial Pressure CO2 42.9, Arterial Blood Partial Pressure O2 59.1L, Arterial Blood HCO3 29.6H, Arterial Blood Oxygen Saturation 91.5L, Arterial Blood Base Excess 5.2H, Cruzito Test Positive 09/03/18 16:35: Random Vancomycin Level 16.5 Current Medications Medications (Trade) Dose Ordered Sig/Marcel Route PRN Reason Start Time Stop Time Status Last Admin Dose Admin Atorvastatin Calcium (Lipitor) 20 mg QHS GT 09/02/18 21:00 10/02/18 20:59 09/02/18 21:18 Carbidopa/Levodopa (Sinemet 25/250) 1 tab Q24H GT 09/03/18 07:30 10/03/18 07:29 09/03/18 08:07 Carbidopa/Levodopa (Sinemet 25/250) 1 tab Q24H GT 09/03/18 12:30 10/03/18 12:29 09/03/18 11:44 Cefepime HCl 2 gm/ Dextrose 110 ml @ 220 mls/hr Q24H IV 09/02/18 21:00 09/09/18 20:59 09/02/18 21:18 Dextrose 1,000 ml @ 70 mls/hr [id number] IV 09/02/18 19:15 10/02/18 19:14 09/03/18 10:17 Dextrose (Dextrose 50%) 25 ml Q30M PRN IV Hypoglycemia 09/02/18 17:00 10/02/18 16:59 Dextrose (Dextrose 50%) 50 ml Q30M PRN IV Hypoglycemia 09/02/18 17:00 10/02/18 16:59 Epoetin Wesley (Epoetin Wesley-EPBX(NON ESRD)) 7,000 unit TUE-TUE-TUE SUBQ 09/04/18 21:00 10/04/18 20:59 EZETIMIBE (Zetia) 10 mg BEDTIME GT 09/02/18 21:00 10/02/18 20:59 09/02/18 21:18 Levothyroxine Sodium (Synthroid) 112 mcg DAILY@0630 GT 09/03/18 06:30 10/03/18 06:29 09/03/18 06:55 Mirtazapine (Remeron) 15 mg 1800 GT 09/02/18 21:00 10/02/18 20:59 09/03/18 17:21 Pantoprazole (Protonix) 40 mg DAILY ORAL 09/03/18 09:00 10/03/18 08:59 09/03/18 08:07 Ropinirole HCl (Requip) 1 mg Q24H ORAL 09/03/18 07:30 10/03/18 07:29 09/03/18 08:07 Ropinirole HCl (Requip) 1 mg Q24H ORAL 09/03/18 12:30 10/03/18 12:29 09/03/18 11:44 Vancomycin HCl (Vanco rx to dose) 1 ea DAILY PRN MISC PER RX PROTOCOL 09/03/18 15:45 10/03/18 15:44 Vancomycin HCl 750 mg/Sodium Chloride 275 ml @ 183.333 mls/hr ONCE IVPB 09/03/18 20:00 09/03/18 22:00 Warfarin Sodium (Coumadin per pharmacy) 1 ea DAILY PRN MISC Per rx protocol 09/02/18 17:00 10/02/18 16:59 Marii Neal DO Sep 03, 2018 20:08
[2018-09-03] MEDS: Cefepime 2gm/D5W 110ml IV SCH ×2 (21:08)
[2018-09-04] VITALS: BP 119/63
[2018-09-04 04:00] VITALS: BP 125/65
[2018-09-04 05:47] LABS: INR 1.5 (0.9-1.1)
--- NOTE | 2018-09-04 07:20 | NUR ---
HAND-OFF: Report given to Maritza RN, pt. remains stable and no signs of distress noted.
--- NOTE | 2018-09-04 07:21 | NUR ---
NURSE NOTES: Received patient in bed. Asleep, on continuous GTF and IVF. On bipap as ordered. No respiratory distress at this time. Joyner cath noted. Left upper arm PICC line inplace. Contact isolation observed. Will continue plan of care.
[2018-09-04 08:00] VITALS: BP 124/58
[2018-09-04] MEDS: Levodopa/Carbidopa 25/250 tab GT SCH ×2 (08:22→12:52)
--- NOTE | 2018-09-04 08:28 | NUR ---
RADIOLOGY DEPT., CHEST X-RAY DONE.-P.DYE
--- NOTE | 2018-09-04 08:30 | NUR ---
NURSE NOTES: Dr. Mclaughlin at bedside. Family at bedside.
--- NOTE | 2018-09-04 08:45 | Nephrology Progress Note ---
Assessment/Plan Assessment/Plan: A/P 1) Resp [place]- chronic. Wean off BiPAP, venturi mask - ABG in 30 min. DC once cleared by Pulm 2) Bacteremia/PNA- known. Continue Vanc and Cefepime 3) Anemia- labs error? Hgb went 7.6--10,6 and WBC worsened. - continue Anx and EPO. DC and follow at NH - am labs recheck 4) Hyperkalemia- resolved 5) Hypernatremia- resolved DC today if cleared by Pulm Subjective Date patient seen: Sep 04, 2018 Time patient seen: 08:43 ROS Limited/Unobtainable: Yes Allergies: Coded Allergies: STRAWBERRY (Verified Allergy, Unknown, Rash, 06/29/13) COPIED FROM UNCODED SECTION VALSARTAN (Verified Allergy, Unknown, 03/09/11) Subjective Patient off BiPAP. On Venturi mask. Family at bedside Objective Last 24 Hour Vital Signs Date Time Temp Pulse Resp B/P (MAP) Pulse Ox O2 Delivery O2 Flow Rate FiO2 09/04/18 08:00 97.7 55 21 124/58 (80) 99 09/04/18 07:46 53 19 99 Full Face 35 09/04/18 05:23 57 20 98 Full Face 35 09/04/18 04:00 97.4 61 20 125/65 (85) 100 09/04/18 04:00 35 09/04/18 04:00 Bi-pap 2.0 09/04/18 03:34 57 09/04/18 02:56 60 23 99 Facial 35 09/04/18 01:24 56 18 97 Facial 35 09/04/18 00:00 97.8 59 18 119/63 (81) 99 09/04/18 00:00 Bi-pap 2.0 09/04/18 00:00 35 09/03/18 23:30 58 20 97 Facial 35 09/03/18 23:24 57 09/03/18 21:29 53 18 98 Facial 35 09/03/18 20:00 35 09/03/18 20:00 Bi-pap 2.0 09/03/18 20:00 54 18 100 Bi-Pap 35 09/03/18 20:00 97.6 57 20 120/61 (80) 100 09/03/18 19:30 57 19 99 Full Face 35 09/03/18 19:01 55 09/03/18 17:35 57 18 99 Full Face 35 09/03/18 16:11 58 17 97 Full Face 35 09/03/18 16:00 Bi-pap 2.0 09/03/18 16:00 2.0 35 09/03/18 16:00 58 09/03/18 12:00 Bi-pap 2.0 09/03/18 12:00 62 09/03/18 12:00 2.0 35 09/03/18 11:43 97.3 62 22 142/71 (94) 99 09/03/18 09:00 2.0 35 09/03/18 09:00 Bi-pap Intake and Output 09/03/18 09/04/18 19:00 07:00 Intake Total 1000 ml 1889.333 ml Output Total 750 ml 485 ml Balance 250 ml 1404.333 ml Free Water 400 ml IV Total 560 ml 1109.333 ml Tube Feeding 440 ml 380 ml Output Urine Total 750 ml 485 ml Laboratory Tests 09/03/18 10:31: Arterial Blood pH 7.456H, Arterial Blood Partial Pressure CO2 42.9, Arterial Blood Partial Pressure O2 59.1L, Arterial Blood HCO3 29.6H, Arterial Blood Oxygen Saturation 91.5L, Arterial Blood Base Excess 5.2H, Cruzito Test Positive 09/03/18 16:35: Random Vancomycin Level 16.5 09/04/18 04:00: Prothrombin Time 15.4H, Prothromb Time International Ratio 1.5H Height (Feet): 5 Height (Inches): 0.00 Weight (Pounds): 110 General Appearance: no apparent distress EENT: normal ENT inspection Neck: normal alignment, supple Cardiovascular: normal rate Respiratory/Chest: rhonchi - bilaterally Abdomen: non tender, soft Edema: no edema noted Arm (L), no edema noted Arm (R), no edema noted Leg (L), no edema noted Leg (R), no edema noted Pedal (L), no edema noted Pedal (R), no edema noted Generalized Jeremiah Mclaughlin MD Sep 04, 2018 08:45
[2018-09-04 09:07] LABS: HEMATOCRIT 25.8 % (37.0-47.0); HEMOGLOBIN 7.6 G/DL (12.0-16.0); MEAN CORPUSCULAR VOLUME 89 FL (80-99); PLATELET COUNT 142 K/UL (150-450); RED BLOOD COUNT 2.91 M/UL (4.20-5.40); RED CELL DISTRIBUTION WIDTH 17.3 % (11.6-14.8); WHITE BLOOD COUNT 12.3 K/UL (4.8-10.8)
[2018-09-04 09:13] LABS: ANION GAP 3 mmol/L (5-15); BLOOD UREA NITROGEN 51 mg/dL (7-18); CALCIUM 8.9 MG/DL (8.5-10.1); CARBON DIOXIDE 30 MMOL/L (21-32); CHLORIDE 110 MMOL/L (98-107); CREATININE 0.6 MG/DL (0.55-1.30); POTASSIUM 4.3 MMOL/L (3.5-5.1); SODIUM 143 MMOL/L (136-145)
--- NOTE | 2018-09-04 11:02 | Diagnostic Imaging Report ---
Indication: Shortness of breath Technique: One view of the chest Comparison: 09/02/2018 Findings: Patient is rotated to the right. Somewhat ill-defined interstitial and airspace opacities are seen in the right suprahilar region, left perihilar region. There is persistent blunting of left costophrenic angle. Allowing for differences in degree of rotation, extent of parenchymal disease may be slightly decreased. Left pleural fluid appears decreased. Impression: Decreased left pleural effusion Probably decreased bilateral parenchymal infiltrates versus edema, or acute
--- NOTE | 2018-09-04 11:04 | NUR ---
RD ASSESSMENT & RECOMMENDATIONS SEE CARE ACTIVITY FOR COMPLETE ASSESSMENT DAILY ESTIMATED NEEDS: Needs based on Wounds, pulmonary, 49kg 30-35 kcals/kg 2511-5656 total kcals 1.25-2 g protein/kg 61-98 g total protein 25-30ml/kcal mL/kg 1374-1064 total fluid mLs NUTRITION DIAGNOSIS: * Increased kcal/prot needs R/T wound healing, as evidenced by multiple wounds including stage 4 sacral wound, pending eval. * Swallowing difficulty R/T dysphagia as evidenced by pt is GT dependent. CURRENT TF:Glucerna 1.5 @ 40ml/hr x 22 hrs ENTERAL NUTRITION RECOMMENDATIONS: Glucerna 1.5 @50ml/hr x22 hrs to provide 1100ml, 1650kcal, 91g prot, 835ml free water * As medically able, start Glucerna 1.5 @20ml/hr for 6 hrs. Advance as tolerated 10ml/hr q4-6 hrs to goal * Hold 1 hr before and after Synthroid med. * HOB over 30 degrees/ water flush per MD. ADDITIONAL RECOMMENDATIONS: * RE-calibrated bedscale wt-> now w/ added P200 mattress * Wound healing: add MVI w/ min daily + Vit C 500mg BID, : add ZnSO4 220mg x10 days : add Larry 1pkt BID * Weekly calibrated bed scale wts * Monitor lytes, replete as needed .
--- NOTE | 2018-09-04 11:23 | NUR ---
DAYCARE DIRECTORFIXTURE MAKER SI: RESP FAILURE T. 97.7 HR 53 RR 21 B/P 124/58 VM FIO2 40% PH 7.43 PCO2 41.2 PO2 75.7 HCO3 26.9 O2 SAT 94.6 CXR=DECREASE LEFT PLEURAL EFFUSION IS: CEFEPIME IV COUMADIN PO STEP DOWN STATUS
--- NOTE | 2018-09-04 12:40 | NUR ---
NURSE NOTES: Dr. Caraballo at bedside. Patient's daughter at bedside. Patient is currently on venturi mask with Fio2 of 40%. Dr. Caraballo made aware of latest ABG result.
--- NOTE | 2018-09-04 12:50 | NUR ---
NURSE NOTES: Informed Dr. Mclaughlin that Dr. Caraballo cleared patient for discharge. MD said he will come to discuss discharge with family. Family made aware.
--- NOTE | 2018-09-04 13:00 | NUR ---
NURSE NOTES:WOUND CARE NOTES:Pt presented on admission with full thickness sacral pressure injury with undermining. Roy granulation with scattered areas of fibrinous slough at base of wound. No odor noted .Small amt serous exudate noted. Detached borders that has darker skin tone noted .Periwound without erythema or induration(L) 6cm x (W)8cm x (D)0.8cm ,undermining clockwise 12-12 by 4.1cm @12o'clock. All bony prominences assessed and no other areas of concerns noted. Both heels are boggy but blanchable. Skin turgor is poor and scattered senile purpuras noted to both upper and both lower extremities. Tx.Plan: Cleanse sacral wound with Saline. Apply Hydrogel into woound with attention to undermined areas. Apply layer of Calcium Alginate into wound. Apply Triad paste periwound. Cover with Optifoam drsg. Change Daily and prn. Apply Cavilon to all bony prominences. Cover bony areas with Optifoam drsgs. Change every 7 days and prn. Reposition at least every 2hours or as tolerated. Off-load heels with pillow. Place pillow between knees. Air fluidized mattress.
--- NOTE | 2018-09-04 13:08 | Consultation ---
History of Present Illness General Date patient seen: Sep 04, 2018 Chief Complaint: Dyspnea/Respdistress Present Illness HPI 88 y/o F with hx of COPD, GERD, Dementia, HILARY on CPAP, COPD, TIA, dysphagia s/p GT, severe kyphosis non verbal, Parkinson's disease, PE/DVT, SNF resident presented to ED on 09/02 with respiratory distress. Patient was placed on Bipap. No report of nausea, vomiting, diarrhea Of note, patient was admitted here from 08/23-08/26 for Gram negative bacteremia, UTI and PNA. Allergies: Coded Allergies: STRAWBERRY (Verified Allergy, Unknown, Rash, 06/29/13) COPIED FROM UNCODED SECTION VALSARTAN (Verified Allergy, Unknown, 03/09/11) Medication History Scheduled Ascorbic Acid* (Ascorbic Acid*), 500 MG GT DAILY, (Reported) Calcium Carbonate (Calcium), 500 MG GT BID, (Reported) Carbidopa/Levodopa* (Sinemet 25-250 Mg Tablet*), 1 TAB GT BID, (Reported) Cefepime Hcl/D5w (Cefepime-Dextrose 2 Gm/50 Ml), 2 GM IVPB EVERY 12 HOURS, ( Reported) Cholecalciferol (Vitamin D3)* (Vitamin D*), 1,000 UNIT GT TID, (Reported) Dextran 70/Hypromellose (Artificial Tears Eye Drops*), 1 DROP BOTH EYES QID, ( Reported) Ezetimibe (Zetia*), 10 MG GT BEDTIME, (Reported) Famotidine (Famotidine), 20 MG GT DAILY, (Reported) Ferrous Sulfate (Ferrous Sulfate), 6.8 ML GT DAILY, (Reported) Furosemide* (Lasix*), 20 MG GT THREE TIMES A DAY, (Reported) Lactobacillus Rhamnosus Gg (Culturelle), 1 EACH GT BID, (Reported) Levothyroxine Sodium* (Synthroid*), 112 MCG GT DAILY, (Reported) Mirtazapine* (Mirtazapine*), 15 MG ORAL BEDTIME, (Reported) Multivitamins* (Multivitamins*), 1 TAB ORAL DAILY, (Reported) Ropinirole Hcl* (Ropinirole Hcl*), 1 MG GT BID, (Reported) Simvastatin (Zocor), 20 MG GT BEDTIME, (Reported) Warfarin Sod* (Warfarin Sod*), 4 MG ORAL DAILY, (Reported) Zinc Sulfate (Zinc Sulfate*), 220 MG GT DAILY, (Reported) [Vancomycin Ivpb], 500 MG IV Q12HR, (Reported) Scheduled PRN Amlodipine Besylate* (Amlodipine Besylate*), 2.5 MG ORAL DAILY PRN for HYPERTENSION, (Reported) Docusate Sodium (Docusate Sodium), 200 MG GT DAILY PRN for Constipation, ( Reported) Ipratropium [place] 0.5MG/2.5ML (Ipratropium [place] 0.5MG/2.5ML), Unknown Dose HHN Q4HR PRN for Shortness of Breath, (Reported) Ipratropium/Albuterol Sulfate (DuoNeb 0.5-3(2.5)mg/3ml), 3 ML HHN Q6HR PRN for Shortness of Breath, (Reported) Polyethylene Glycol 3350* (Miralax*), 17 GM GT DAILY PRN for Constipation, ( Reported) Tramadol Hcl* (Ultram*), 25 MG ORAL Q6H PRN for For Pain, (Reported) Miscellaneous Medications Arginine/Glutamine/Calcium Hmb (Larry Packet), 1 EACH GT, (Reported) Discontinued Medications Acetaminophen 160MG/5ML* (Acetaminophen*), 16 ML GT Q4HR PRN for For Pain Level <=5, (Reported) Discontinued Reason: Therapy completed Diphenhydramine Hcl* (Benadryl Allergy*), 25 MG GT Q6HR PRN for Itching, ( Reported) Discontinued Reason: Therapy completed Levodopa/Carbidopa (Carbidopa-Levo ER 25-100 Tab), 1 TAB ORAL TWICE A DAY, ( Reported) Discontinued Reason: Therapy completed Magnesium Hydroxide* (Milk Of Magnesia*), 30 ML GT DAILY PRN for DOCUSATE INEFFECTIVE, (Reported) Discontinued Reason: Therapy completed Patient History Healthcare decision maker Chelly Xavier Resuscitation status Do Not Resuscitate Advanced Directive on File Patient History Narrative Pmhx: as above Shx: Negative for tobacco or drugs. Fhx: non contributory Review of Systems All Other Systems: negative except mentioned in HPI Physical Exam Physical Exam Narrative GENERAL: She is in no acute respiratory distress. She is afebrile. HEENT: She is normocephalic and atraumatic. Oropharynx is dry. Nasal mucosa is dry. NECK: Supple. No lymphadenopathy. LUNGS: Decreased at the bases. Scattered rhonchi. HEART: Regular rate and rhythm without murmur. ABDOMEN: Soft, nontender. Positive bowel sounds. EXTREMITIES: Positive edema diffusely. SKIN: She has skin rashes and fluid have been documented in the nursing notes. Last 24 Hour Vital Signs Date Time Temp Pulse Resp B/P (MAP) Pulse Ox O2 Delivery O2 Flow Rate FiO2 09/04/18 09:04 97 Venturi Mask 8.0 40 09/04/18 08:00 35 09/04/18 08:00 Venturi Mask 8.0 09/04/18 08:00 97.7 55 21 124/58 (80) 99 09/04/18 07:46 53 19 99 Full Face 35 09/04/18 07:43 54 09/04/18 05:23 57 20 98 Full Face 35 09/04/18 04:00 97.4 61 20 125/65 (85) 100 09/04/18 04:00 35 09/04/18 04:00 Bi-pap 2.0 09/04/18 03:34 57 09/04/18 02:56 60 23 99 Facial 35 09/04/18 01:24 56 18 97 Facial 35 09/04/18 00:00 97.8 59 18 119/63 (81) 99 09/04/18 00:00 Bi-pap 2.0 09/04/18 00:00 35 09/03/18 23:30 58 20 97 Facial 35 09/03/18 23:24 57 09/03/18 21:29 53 18 98 Facial 35 09/03/18 20:00 35 09/03/18 20:00 Bi-pap 2.0 09/03/18 20:00 54 18 100 Bi-Pap 35 09/03/18 20:00 97.6 57 20 120/61 (80) 100 09/03/18 19:30 57 19 99 Full Face 35 09/03/18 19:01 55 09/03/18 17:35 57 18 99 Full Face 35 09/03/18 16:11 58 17 97 Full Face 35 09/03/18 16:00 Bi-pap 2.0 09/03/18 16:00 2.0 35 09/03/18 16:00 58 Intake and Output 09/03/18 09/04/18 18:59 06:59 Intake Total 890 ml 1929.333 ml Output Total 750 ml 485 ml Balance 140 ml 1444.333 ml Free Water 400 ml IV Total 490 ml 1109.333 ml Tube Feeding 400 ml 420 ml Output Urine Total 750 ml 485 ml Laboratory Tests Test 09/03/18 16:35 09/04/18 04:00 09/04/18 08:00 09/04/18 08:45 Random Vancomycin Level 16.5 ug/mL Prothrombin Time 15.4 SEC (9.30-11.50) H Prothromb Time International Ratio 1.5 (0.9-1.1) H Arterial Blood pH 7.432 (7.350-7.450) Arterial Blood Partial Pressure CO2 41.2 mmHg (35.0-45.0) Arterial Blood Partial Pressure O2 75.7 mmHg (75.0-100.0) Arterial Blood HCO3 26.9 mmol/L (22.0-26.0) H Arterial Blood Oxygen Saturation 94.6 % (95-100) L Arterial Blood Base Excess 2.4 (-2-2) H Cruzito Test Positive White Blood Count 12.3 K/UL (4.8-10.8) H Red Blood Count 2.91 M/UL (4.20-5.40) L Hemoglobin 7.6 G/DL (12.0-16.0) L Hematocrit 25.8 % (37.0-47.0) L Mean Corpuscular Volume 89 FL (80-99) Mean Corpuscular Hemoglobin 26.2 PG (27.0-31.0) L Mean Corpuscular Hemoglobin Concent 29.6 G/DL (32.0-36.0) L Red Cell Distribution Width 17.3 % (11.6-14.8) H Platelet Count 142 K/UL (150-450) L Mean Platelet Volume 11.1 FL (6.5-10.1) H Neutrophils (%) (Auto) % (45.0-75.0) Lymphocytes (%) (Auto) % (20.0-45.0) Monocytes (%) (Auto) % (1.0-10.0) Eosinophils (%) (Auto) % (0.0-3.0) Basophils (%) (Auto) % (0.0-2.0) Differential Total Cells Counted 100 Neutrophils % (Manual) 72 % (45-75) Lymphocytes % (Manual) 13 % (20-45) L Monocytes % (Manual) 6 % (1-10) Eosinophils % (Manual) 9 % (0-3) H Basophils % (Manual) 0 % (0-2) Band Neutrophils 0 % (0-8) Platelet Estimate Decreased L Platelet Morphology Normal Hypochromasia 3+ Anisocytosis 1+ Sodium Level 143 MMOL/L (136-145) Potassium Level 4.3 MMOL/L (3.5-5.1) Chloride Level 110 MMOL/L (98-107) H Carbon Dioxide Level 30 MMOL/L (21-32) Anion Gap 3 mmol/L (5-15) L Blood Urea Nitrogen 51 mg/dL (7-18) H Creatinine 0.6 MG/DL (0.55-1.30) Estimat Glomerular Filtration Rate mL/min (>60) Glucose Level 120 MG/DL (74-106) H Calcium Level 8.9 MG/DL (8.5-10.1) # Height (Feet): 5 Height (Inches): 0.00 Weight (Pounds): 110 Medications Current Medications Medications (Trade) Dose Ordered Sig/Marcel Route PRN Reason Start Time Stop Time Status Last Admin Dose Admin Atorvastatin Calcium (Lipitor) 20 mg QHS GT 09/04/18 21:00 10/02/18 20:59 Carbidopa/Levodopa (Sinemet 25/250) 1 tab Q24H GT 09/03/18 07:30 10/03/18 07:29 09/04/18 08:22 Carbidopa/Levodopa (Sinemet 25/250) 1 tab Q24H GT 09/03/18 12:30 10/03/18 12:29 09/03/18 11:44 Cefepime HCl 2 gm/ Dextrose 110 ml @ 220 mls/hr Q24H IV 09/02/18 21:00 09/09/18 20:59 09/03/18 21:08 Dextrose (Dextrose 50%) 25 ml Q30M PRN IV Hypoglycemia 09/02/18 17:00 10/02/18 16:59 Dextrose (Dextrose 50%) 50 ml Q30M PRN IV Hypoglycemia 09/02/18 17:00 10/02/18 16:59 Epoetin Wesley (Epoetin Wesley-EPBX(NON ESRD)) 7,000 unit MON-WED-FRI SUBQ 09/04/18 21:00 10/04/18 20:59 EZETIMIBE (Zetia) 10 mg BEDTIME GT 09/02/18 21:00 10/02/18 20:59 09/03/18 20:12 Levothyroxine Sodium (Synthroid) 112 mcg DAILY@0630 GT 09/03/18 06:30 10/03/18 06:29 09/04/18 05:31 Mirtazapine (Remeron) 15 mg 1800 GT 09/02/18 21:00 10/02/18 20:59 09/03/18 17:21 Pantoprazole (Protonix) 40 mg DAILY ORAL 09/03/18 09:00 10/03/18 08:59 09/04/18 08:23 Ropinirole HCl (Requip) 1 mg Q24H ORAL 09/03/18 07:30 10/03/18 07:29 09/04/18 08:23 Ropinirole HCl (Requip) 1 mg Q24H ORAL 09/03/18 12:30 10/03/18 12:29 09/03/18 11:44 Vancomycin HCl (Vanco rx to dose) 1 ea DAILY PRN MISC PER RX PROTOCOL 09/03/18 15:45 10/03/18 15:44 Warfarin Sodium (Coumadin per pharmacy) 1 ea DAILY PRN MISC Per rx protocol 09/02/18 17:00 10/02/18 16:59 Warfarin Sodium (Coumadin) 6 mg COUMADIN ORAL 09/04/18 17:00 09/04/18 18:00 Assessment/Plan Assessment/Plan: Abx: IV Vancomycin 09/03- Cefepime 09/02- Levaquin x1 09/02 Assessment: Acute respiratory failure, on Bipap- Pulmonary edema vs PNA -09/02 CXR: Increasing basilar opacity, likely combination of pleural fluid and atelectasis/consolidation. Question vascular congestion and cardiomegaly. Afebrile Mild leukocytosis, improving -u/a wbc 20-30, nit neg, leuk +3; ucx >100k yeast Recent Sepsis 2ry to MRSA PNA, PsA bacteremia (?source, picc line, however cath tip cx neg), Proteus UTI Mid 08/2018 -08/24 SP PICC line removed, cath tip cx neg -u/a wbc tnct, nit neg, leuk +3; ucx >100k P. mirabilis (R Cipro/levaquin, Nitrofurantoin) - -08/18 Bcx Pseudomonas (gallegos S); 08/23 BCx 2/4 PsA (gallegos S); 08/24 Bcx NTD -sp cx MRSA -Abd US: No acute findings identified. Limited study as described above. Sacral decubitus Ulcer/OM- -s/p recent 10 weeks of IV zosyn COPD PNA Dementia PE/DVT GERD dysphagia s/p GT Parkinson's disease TIA severe kyphosis [facility] resident HILARY on CPA non verbal Plan: -Continue empiric IV Vancomycin #2 and Cefepime #9 (abx d #13) pending cultures -08/26 SP Meropenem #4 -08/25 SP IV Vancomycin #3 -08/23/18 Cefepime x1, Levaquin x1 -f/u cx -Monitor CBC/CMP, temperatures -sp cx -GT care -aspiration precautions Thank you for this consultation. Will continue to follow along with you. Discussed with Tasha Appiah M.D. Sep 04, 2018 13:08
--- NOTE | 2018-09-04 13:19 | Consultation ---
History of Present Illness General Date patient seen: Sep 04, 2018 Chief Complaint: Dyspnea/Respdistress Present Illness HPI This is a very pleasant 88-year-old female known to me from prior admissions who was recently discharged to nursing facility but returns with shortness of breath and respiratory insufficiency. Patient has been cared for during prior admissions for her multiple wounds that require extensive care and management given her age, nutritional status, wounds that she is developed. Surgery has been called to evaluate and assist with care. Patient unfortunately unable to provide history and most of the history has been obtained from the family in the past. Family is well-known to me. Allergies: Coded Allergies: STRAWBERRY (Verified Allergy, Unknown, Rash, 06/29/13) COPIED FROM UNCODED SECTION VALSARTAN (Verified Allergy, Unknown, 03/09/11) Medication History Scheduled Ascorbic Acid* (Ascorbic Acid*), 500 MG GT DAILY, (Reported) Calcium Carbonate (Calcium), 500 MG GT BID, (Reported) Carbidopa/Levodopa* (Sinemet 25-250 Mg Tablet*), 1 TAB GT BID, (Reported) Cefepime Hcl/D5w (Cefepime-Dextrose 2 Gm/50 Ml), 2 GM IVPB EVERY 12 HOURS, ( Reported) Cholecalciferol (Vitamin D3)* (Vitamin D*), 1,000 UNIT GT TID, (Reported) Dextran 70/Hypromellose (Artificial Tears Eye Drops*), 1 DROP BOTH EYES QID, ( Reported) Ezetimibe (Zetia*), 10 MG GT BEDTIME, (Reported) Famotidine (Famotidine), 20 MG GT DAILY, (Reported) Ferrous Sulfate (Ferrous Sulfate), 6.8 ML GT DAILY, (Reported) Furosemide* (Lasix*), 20 MG GT THREE TIMES A DAY, (Reported) Lactobacillus Rhamnosus Gg (Culturelle), 1 EACH GT BID, (Reported) Levothyroxine Sodium* (Synthroid*), 112 MCG GT DAILY, (Reported) Mirtazapine* (Mirtazapine*), 15 MG ORAL BEDTIME, (Reported) Multivitamins* (Multivitamins*), 1 TAB ORAL DAILY, (Reported) Ropinirole Hcl* (Ropinirole Hcl*), 1 MG GT BID, (Reported) Simvastatin (Zocor), 20 MG GT BEDTIME, (Reported) Warfarin Sod* (Warfarin Sod*), 4 MG ORAL DAILY, (Reported) Zinc Sulfate (Zinc Sulfate*), 220 MG GT DAILY, (Reported) [Vancomycin Ivpb], 500 MG IV Q12HR, (Reported) Scheduled PRN Amlodipine Besylate* (Amlodipine Besylate*), 2.5 MG ORAL DAILY PRN for HYPERTENSION, (Reported) Diphenhydramine Hcl* (Benadryl Allergy*), 25 MG GT Q6HR PRN for Itching, ( Reported) Docusate Sodium (Docusate Sodium), 200 MG GT DAILY PRN for Constipation, ( Reported) Ipratropium [place] 0.5MG/2.5ML (Ipratropium [place] 0.5MG/2.5ML), Unknown Dose HHN Q4HR PRN for Shortness of Breath, (Reported) Ipratropium/Albuterol Sulfate (DuoNeb 0.5-3(2.5)mg/3ml), 3 ML HHN Q6HR PRN for Shortness of Breath, (Reported) Magnesium Hydroxide* (Milk Of Magnesia*), 30 ML GT DAILY PRN for DOCUSATE INEFFECTIVE, (Reported) Polyethylene Glycol 3350* (Miralax*), 17 GM GT DAILY PRN for Constipation, ( Reported) Tramadol Hcl* (Ultram*), 25 MG ORAL Q6H PRN for For Pain, (Reported) Miscellaneous Medications Arginine/Glutamine/Calcium Hmb (Larry Packet), 1 EACH GT, (Reported) Discontinued Medications Acetaminophen 160MG/5ML* (Acetaminophen*), 16 ML GT Q4HR PRN for For Pain Level <=5, (Reported) Discontinued Reason: Therapy completed Levodopa/Carbidopa (Carbidopa-Levo ER 25-100 Tab), 1 TAB ORAL TWICE A DAY, ( Reported) Discontinued Reason: Therapy completed Patient History Limited by: medical condition History Provided By: Medical Record, PMD Healthcare decision maker Chelly Xavier Resuscitation status Do Not Resuscitate Advanced Directive on File Review of Systems ROS Narrative Cannot obtain given medical condition Physical Exam General Appearance: mild distress Lines, tubes and drains: peripheral HEENT: mucous membranes moist Neck: normal inspection Respiratory/Chest: no respiratory distress, no accessory muscle use, decreased breath sounds Cardiovascular/Chest: normal rate Abdomen: soft, no organomegaly, no mass, other Genitourinary/Rectal: other Extremities: other Neurologic: other Last 24 Hour Vital Signs Date Time Temp Pulse Resp B/P (MAP) Pulse Ox O2 Delivery O2 Flow Rate FiO2 09/04/18 12:00 40 09/04/18 09:04 97 Venturi Mask 8.0 40 09/04/18 09:00 40 09/04/18 08:00 35 09/04/18 08:00 Venturi Mask 8.0 09/04/18 08:00 97.7 55 21 124/58 (80) 99 09/04/18 07:46 53 19 99 Full Face 35 09/04/18 07:43 54 09/04/18 05:23 57 20 98 Full Face 35 09/04/18 04:00 97.4 61 20 125/65 (85) 100 09/04/18 04:00 35 09/04/18 04:00 Bi-pap 2.0 09/04/18 03:34 57 09/04/18 02:56 60 23 99 Facial 35 09/04/18 01:24 56 18 97 Facial 35 09/04/18 00:00 97.8 59 18 119/63 (81) 99 09/04/18 00:00 Bi-pap 2.0 09/04/18 00:00 35 09/03/18 23:30 58 20 97 Facial 35 09/03/18 23:24 57 09/03/18 21:29 53 18 98 Facial 35 09/03/18 20:00 35 09/03/18 20:00 Bi-pap 2.0 09/03/18 20:00 54 18 100 Bi-Pap 35 09/03/18 20:00 97.6 57 20 120/61 (80) 100 09/03/18 19:30 57 19 99 Full Face 35 09/03/18 19:01 55 09/03/18 17:35 57 18 99 Full Face 35 09/03/18 16:11 58 17 97 Full Face 35 09/03/18 16:00 Bi-pap 2.0 09/03/18 16:00 2.0 35 09/03/18 16:00 58 Intake and Output 09/03/18 09/04/18 18:59 06:59 Intake Total 890 ml 1929.333 ml Output Total 750 ml 485 ml Balance 140 ml 1444.333 ml Free Water 400 ml IV Total 490 ml 1109.333 ml Tube Feeding 400 ml 420 ml Output Urine Total 750 ml 485 ml Laboratory Tests Test 09/03/18 16:35 09/04/18 04:00 09/04/18 08:00 09/04/18 08:45 Random Vancomycin Level 16.5 ug/mL Prothrombin Time 15.4 SEC (9.30-11.50) H Prothromb Time International Ratio 1.5 (0.9-1.1) H Arterial Blood pH 7.432 (7.350-7.450) Arterial Blood Partial Pressure CO2 41.2 mmHg (35.0-45.0) Arterial Blood Partial Pressure O2 75.7 mmHg (75.0-100.0) Arterial Blood HCO3 26.9 mmol/L (22.0-26.0) H Arterial Blood Oxygen Saturation 94.6 % (95-100) L Arterial Blood Base Excess 2.4 (-2-2) H [place] Test Positive White Blood Count 12.3 K/UL (4.8-10.8) H Red Blood Count 2.91 M/UL (4.20-5.40) L Hemoglobin 7.6 G/DL (12.0-16.0) L Hematocrit 25.8 % (37.0-47.0) L Mean Corpuscular Volume 89 FL (80-99) Mean Corpuscular Hemoglobin 26.2 PG (27.0-31.0) L Mean Corpuscular Hemoglobin Concent 29.6 G/DL (32.0-36.0) L Red Cell Distribution Width 17.3 % (11.6-14.8) H Platelet Count 142 K/UL (150-450) L Mean Platelet Volume 11.1 FL (6.5-10.1) H Neutrophils (%) (Auto) % (45.0-75.0) Lymphocytes (%) (Auto) % (20.0-45.0) Monocytes (%) (Auto) % (1.0-10.0) Eosinophils (%) (Auto) % (0.0-3.0) Basophils (%) (Auto) % (0.0-2.0) Differential Total Cells Counted 100 Neutrophils % (Manual) 72 % (45-75) Lymphocytes % (Manual) 13 % (20-45) L Monocytes % (Manual) 6 % (1-10) Eosinophils % (Manual) 9 % (0-3) H Basophils % (Manual) 0 % (0-2) Band Neutrophils 0 % (0-8) Platelet Estimate Decreased L Platelet Morphology Normal Hypochromasia 3+ Anisocytosis 1+ Sodium Level 143 MMOL/L (136-145) Potassium Level 4.3 MMOL/L (3.5-5.1) Chloride Level 110 MMOL/L (98-107) H Carbon Dioxide Level 30 MMOL/L (21-32) Anion Gap 3 mmol/L (5-15) L Blood Urea Nitrogen 51 mg/dL (7-18) H Creatinine 0.6 MG/DL (0.55-1.30) Estimat Glomerular Filtration Rate mL/min (>60) Glucose Level 120 MG/DL (74-106) H Calcium Level 8.9 MG/DL (8.5-10.1) # Height (Feet): 5 Height (Inches): 0.00 Weight (Pounds): 110 Medications Current Medications Medications (Trade) Dose Ordered Sig/Marcel Route PRN Reason Start Time Stop Time Status Last Admin Dose Admin Atorvastatin Calcium (Lipitor) 20 mg QHS GT 09/04/18 21:00 10/02/18 20:59 Carbidopa/Levodopa (Sinemet 25/250) 1 tab Q24H GT 09/03/18 07:30 10/03/18 07:29 09/04/18 08:22 Carbidopa/Levodopa (Sinemet 25/250) 1 tab Q24H GT 09/03/18 12:30 10/03/18 12:29 09/04/18 12:52 Cefepime HCl 2 gm/ Dextrose 110 ml @ 220 mls/hr Q24H IV 09/02/18 21:00 09/09/18 20:59 09/03/18 21:08 Dextrose (Dextrose 50%) 25 ml Q30M PRN IV Hypoglycemia 09/02/18 17:00 10/02/18 16:59 Dextrose (Dextrose 50%) 50 ml Q30M PRN IV Hypoglycemia 09/02/18 17:00 10/02/18 16:59 Epoetin Wesley (Epoetin Wesley-EPBX(NON ESRD)) 7,000 unit TUE-TUE-TUE SUBQ 09/04/18 21:00 10/04/18 20:59 EZETIMIBE (Zetia) 10 mg BEDTIME GT 09/02/18 21:00 10/02/18 20:59 09/03/18 20:12 Levothyroxine Sodium (Synthroid) 112 mcg DAILY@0630 GT 09/03/18 06:30 10/03/18 06:29 09/04/18 05:31 Mirtazapine (Remeron) 15 mg 1800 GT 09/02/18 21:00 10/02/18 20:59 09/03/18 17:21 Pantoprazole (Protonix) 40 mg DAILY ORAL 09/03/18 09:00 10/03/18 08:59 09/04/18 08:23 Ropinirole HCl (Requip) 1 mg Q24H ORAL 09/03/18 07:30 10/03/18 07:29 09/04/18 08:23 Ropinirole HCl (Requip) 1 mg Q24H ORAL 09/03/18 12:30 10/03/18 12:29 09/04/18 12:52 Vancomycin HCl (Vanco rx to dose) 1 ea DAILY PRN MISC PER RX PROTOCOL 09/03/18 15:45 10/03/18 15:44 Warfarin Sodium (Coumadin per pharmacy) 1 ea DAILY PRN MISC Per rx protocol 09/02/18 17:00 10/02/18 16:59 Warfarin Sodium (Coumadin) 6 mg COUMADIN ORAL 09/04/18 17:00 09/04/18 18:00 Assessment/Plan Problem List: (1) Decubitus skin ulcer Assessment & Plan: Pt presented on admission with multiple pressure injuries.Scattered areas of non-blanchable erythema noted to R earlobe. L earlobe is pink and blanchable. #2 areas of non-blanching erythema noted to L scapula(proximal)-(L)2cm x (W) 2.5cm,(Distal)-(L)1cm x(W)0.6cm. Non-blanchable erythema noted to L thoracic(L)1.5cm x (W)2cm. Cat 3 skin tear with 100% flap loss noted to Medial L antecubital (L)0.6cm x (W) 0.5cm. Full thickness sacral pressure injury with undermining noted (L)7cm x (W)7.5cm x (D)0.5cm ,undermining clockwise 12-12 by 5.2cm @12o'clock. [place] granulation at base of wound .Loose edges ,(+) epibole noted. Periwound is indurated with additional skin breakdown noted periwound -Clockwise at 6o'clock an area of soft necrosis that is partially opened but dry noted (L)3.5cm x (W)1.8cm , an area that is fluctuant and maroon in colour noted at 5o'clock (L)2.5cm x (W) 2cm.DTR at bedside and was informed likelihood of these two areas becoming open wounds secondary to already compromised skin from sacral wound and that that these areas are over undermined areas of sacral wound..Both ischial areas are pink and blanchable. Pt noted to have developed erythema to L scapula and L hip and L trochanter within few minutes of being on L side for staff to assess wounds. Dtr also educated pt is at high risks secondary to poor tissue perfusion and comorbidities. Pt noted to be wearing soft heel raiser boots .Upon removal of heel raiser boots pt noted to have DTPI's to R and L posterior tibias.L tibia has an elongated area that is maroon in colour and base of wound is indurated(L)11.5cm x (W)2cm. R tibia DTPI. Base of wound is maroon and indurated (L)1.2cm x (W)0.5cm. scattered areas of non-blanching erythema periwound Dtr informed it was in best interest of pt to discontinue heel raiser boots and have both lower ext off- loaded with pillows with heels floated. Dtr agreed with staff. R heel and plantar R heel fluctuant and maroon in colour (L)4.5cm x (W)7.5cm. L heel fluctuant but blanchable. cavilon Skin Barrier applied with Optifoam drsgs to all bony prominences such as both clavicles,both scapulae,bilat elbows ,both trochanter/ hips, and kyphosis to minimize skin breakdown. Dtr informed pt will be transferred to an Air fluidized mattress pending delivery today.Pt positioned with pillows. Tx.Plan: Cleanse Sacral wound with Saline.Apply Hydrogel. Layer Calcium Alginate sheet with attention to undermined borders of wound. Apply Triad paste periwound. Cover with Optifoam drsg Daily and prn. Apply Cavilon Skin Barrier to bony prominences. Cover each area with Optifoam drsgs. Change every 7 days and PRN. Apply Cavilon Skin Barrier to R and L tibia. Cover each wound with Optifoam drsgs. Change every 7 days and prn. Apply Cavilon Skin Barrier to R heel DTPI. Cover with Optifoam drsg. Change every 7 days and PRN. Clean skin tear medial L antecubital. (leave Versatel in place)Apply Silvasorb gel. Cover with Optifoam drsg every 7 days and prn. Air Fluidized mattress. Reposition at least every 2hours or as tolerated. Place pillow between knees .Off-load heels with pillows. ICD Codes: L89.90 - Pressure ulcer of unspecified site, unspecified stage SNOMED: 120002017 (2) Failure to thrive SNOMED: 67288890 (3) Severe malnutrition Assessment & Plan: DAILY ESTIMATED NEEDS: Needs based on Wounds, pulmonary, 49kg 30-35 kcals/kg 1714-6541 total kcals 1.25-2 g protein/kg 61-98 g total protein 25-30ml/kcal mL/kg 0620-8085 total fluid mLs NUTRITION DIAGNOSIS: * Increased kcal/prot needs R/T wound healing, as evidenced by multiple wounds including stage 4 sacral wound, pending eval. * Swallowing difficulty R/T dysphagia as evidenced by pt is GT dependent. CURRENT TF:Glucerna 1.5 @ 40ml/hr x 22 hrs ENTERAL NUTRITION RECOMMENDATIONS: Glucerna 1.5 @50ml/hr x22 hrs to provide 1100ml, 1650kcal, 91g prot, 835ml free water * As medically able, start Glucerna 1.5 @20ml/hr for 6 hrs. Advance as tolerated 10ml/hr q4-6 hrs to goal * Hold 1 hr before and after Synthroid med. * HOB over 30 degrees/ water flush per MD. ADDITIONAL RECOMMENDATIONS: * RE-calibrated bedscale wt-> now w/ added P200 mattress * Wound healing: add MVI w/ min daily + Vit C 500mg BID, : add ZnSO4 220mg x10 days : add Larry 1pkt BID * Weekly calibrated bed scale wts * Monitor lytes, replete as needed ICD Codes: E43 - Unspecified severe protein-calorie malnutrition SNOMED: [id number] Sachin Lott Sep 04, 2018 13:19
[2018-09-04] MEDS ORDERED: Albuterol/Ipratropium 3ml neb HHN PRN (13:45)
--- NOTE | 2018-09-04 13:46 | Pulmonology Progress Note ---
Assessment/Plan Problems: (1) Respiratory failure (2) Failure to thrive (3) Decubitus skin ulcer (4) Mild cognitive impairment (5) Chronic diastolic CHF (congestive heart failure) (6) Dysphasia (7) Pyelonephritis Assessment/Plan BiPAP PRN and qHS Titrate O2 PRN HHN's Abx per ID, F/U Cx's Monitor volumes and renal function TF's DVT Px: AC Subjective Allergies: Coded Allergies: STRAWBERRY (Verified Allergy, Unknown, Rash, 06/29/13) COPIED FROM UNCODED SECTION VALSARTAN (Verified Allergy, Unknown, 03/09/11) Subjective AFVSS O2 needs stable on BiPAP ON now on NC No cough no sig secretions MS @ baseline tiffanie TF's Objective Last 24 Hour Vital Signs Date Time Temp Pulse Resp B/P (MAP) Pulse Ox O2 Delivery O2 Flow Rate FiO2 09/04/18 12:00 40 09/04/18 09:04 97 Venturi Mask 8.0 40 09/04/18 09:00 40 09/04/18 08:00 35 09/04/18 08:00 Venturi Mask 8.0 09/04/18 08:00 97.7 55 21 124/58 (80) 99 09/04/18 07:46 53 19 99 Full Face 35 09/04/18 07:43 54 09/04/18 05:23 57 20 98 Full Face 35 09/04/18 04:00 97.4 61 20 125/65 (85) 100 09/04/18 04:00 35 09/04/18 04:00 Bi-pap 2.0 09/04/18 03:34 57 09/04/18 02:56 60 23 99 Facial 35 09/04/18 01:24 56 18 97 Facial 35 09/04/18 00:00 97.8 59 18 119/63 (81) 99 09/04/18 00:00 Bi-pap 2.0 09/04/18 00:00 35 09/03/18 23:30 58 20 97 Facial 35 09/03/18 23:24 57 09/03/18 21:29 53 18 98 Facial 35 09/03/18 20:00 35 09/03/18 20:00 Bi-pap 2.0 09/03/18 20:00 54 18 100 Bi-Pap 35 09/03/18 20:00 97.6 57 20 120/61 (80) 100 09/03/18 19:30 57 19 99 Full Face 35 09/03/18 19:01 55 09/03/18 17:35 57 18 99 Full Face 35 09/03/18 16:11 58 17 97 Full Face 35 09/03/18 16:00 Bi-pap 2.0 09/03/18 16:00 2.0 35 09/03/18 16:00 58 Intake and Output 09/03/18 09/04/18 18:59 06:59 Intake Total 890 ml 1929.333 ml Output Total 750 ml 485 ml Balance 140 ml 1444.333 ml Free Water 400 ml IV Total 490 ml 1109.333 ml Tube Feeding 400 ml 420 ml Output Urine Total 750 ml 485 ml General Appearance: cachetic HEENT: normocephalic, atraumatic, anicteric, mucous membranes moist Respiratory/Chest: rhonchi Cardiovascular: normal peripheral pulses, normal rate, regular rhythm Abdomen: normal bowel sounds, soft, non tender, no organomegaly, non distended , other - GT Extremities: no cyanosis, no clubbing, no edema Microbiology Date/Time Source Procedure Growth Status 09/02/18 16:35 Blood Blood Culture - Preliminary NO GROWTH AFTER 24 HOURS Resulted 09/02/18 16:35 Blood Blood Culture - Preliminary NO GROWTH AFTER 24 HOURS Resulted 09/02/18 17:30 Urine,Clean Catch Urine Culture - Preliminary YEAST Resulted 09/03/18 04:40 Sacral Swab Gram Stain - Final Resulted 09/03/18 04:40 Wound Culture - Preliminary Diphtheroids Resulted Laboratory Tests 09/03/18 16:35: Random Vancomycin Level 16.5 09/04/18 04:00: Prothrombin Time 15.4H, Prothromb Time International Ratio 1.5H 09/04/18 08:00: Arterial Blood pH 7.432, Arterial Blood Partial Pressure CO2 41.2, Arterial Blood Partial Pressure O2 75.7, Arterial Blood HCO3 26.9H, Arterial Blood Oxygen Saturation 94.6L, Arterial Blood Base Excess 2.4H, Cruzito Test Positive 09/04/18 08:45: White Blood Count 12.3H, Red Blood Count 2.91L, Hemoglobin 7.6L, Hematocrit 25.8L, Mean Corpuscular Volume 89, Mean Corpuscular Hemoglobin 26.2L, Mean Corpuscular Hemoglobin Concent 29.6L, Red Cell Distribution Width 17.3H, Platelet Count 142L, Mean Platelet Volume 11.1H, Neutrophils (%) (Auto) , Lymphocytes (%) (Auto) , Monocytes (%) (Auto) , Eosinophils (%) (Auto) , Basophils (%) (Auto) , Differential Total Cells Counted 100, Neutrophils % ( Manual) 72, Lymphocytes % (Manual) 13L, Monocytes % (Manual) 6, Eosinophils % ( Manual) 9H, Basophils % (Manual) 0, Band Neutrophils 0, Platelet Estimate DecreasedL, Platelet Morphology Normal, Hypochromasia 3+, Anisocytosis 1+, Sodium Level 143, Potassium Level 4.3, Chloride Level 110H, Carbon Dioxide Level 30, Anion Gap 3L, Blood Urea Nitrogen 51H, Creatinine 0.6, Estimat Glomerular Filtration Rate , Glucose Level 120H, Calcium Level 8.9# Current Medications Medications (Trade) Dose Ordered Sig/Marcel Route PRN Reason Start Time Stop Time Status Last Admin Dose Admin Ascorbic Acid (Vitamin C) 500 mg TWICE A DAY ORAL 09/04/18 18:00 10/04/18 17:59 Atorvastatin Calcium (Lipitor) 20 mg QHS GT 09/04/18 21:00 10/02/18 20:59 Carbidopa/Levodopa (Sinemet 25/250) 1 tab Q24H GT 09/03/18 07:30 10/03/18 07:29 09/04/18 08:22 Carbidopa/Levodopa (Sinemet 25/250) 1 tab Q24H GT 09/03/18 12:30 10/03/18 12:29 09/04/18 12:52 Cefepime HCl 2 gm/ Dextrose 110 ml @ 220 mls/hr Q24H IV 09/02/18 21:00 09/09/18 20:59 09/03/18 21:08 Dextrose (Dextrose 50%) 25 ml Q30M PRN IV Hypoglycemia 09/02/18 17:00 10/02/18 16:59 Dextrose (Dextrose 50%) 50 ml Q30M PRN IV Hypoglycemia 09/02/18 17:00 10/02/18 16:59 Epoetin Wesley (Epoetin Wesley-EPBX(NON ESRD)) 7,000 unit TUE-TUE-TUE SUBQ 09/04/18 21:00 10/04/18 20:59 EZETIMIBE (Zetia) 10 mg BEDTIME GT 09/02/18 21:00 10/02/18 20:59 09/03/18 20:12 Levothyroxine Sodium (Synthroid) 112 mcg DAILY@0630 GT 09/03/18 06:30 10/03/18 06:29 09/04/18 05:31 Mirtazapine (Remeron) 15 mg 1800 GT 09/02/18 21:00 10/02/18 20:59 09/03/18 17:21 Multivitamins (Multivitamins) 1 tab DAILY ORAL 09/05/18 09:00 10/05/18 08:59 Pantoprazole (Protonix) 40 mg DAILY ORAL 09/03/18 09:00 10/03/18 08:59 09/04/18 08:23 Ropinirole HCl (Requip) 1 mg Q24H ORAL 09/03/18 07:30 10/03/18 07:29 09/04/18 08:23 Ropinirole HCl (Requip) 1 mg Q24H ORAL 09/03/18 12:30 10/03/18 12:29 09/04/18 12:52 Vancomycin HCl (Vanco rx to dose) 1 ea DAILY PRN MISC PER RX PROTOCOL 09/03/18 15:45 10/03/18 15:44 Warfarin Sodium (Coumadin per pharmacy) 1 ea DAILY PRN MISC Per rx protocol 09/02/18 17:00 10/02/18 16:59 Warfarin Sodium (Coumadin) 6 mg COUMADIN ORAL 09/04/18 17:00 09/04/18 18:00 Zinc Sulfate (Zinc Sulfate) 220 mg DAILY ORAL 09/05/18 09:00 09/15/18 08:59 Kevyn Caraballo MD Sep 04, 2018 13:46
--- NOTE | 2018-09-04 14:00 | NUR ---
*-* DISCHARGE PLANNING *-* PATIENT HAS BEEN REFERRED BACK TO: [facility] P: [phone] F: [phone]
--- NOTE | 2018-09-04 14:33 | NUR ---
*-* DISCHARGED PLANNED *-* PATIENT IS DISCHARGED TO: [facility] ROOM# [address] [facility] T:[phone] FOR NURSE TO NURSE REPORT [facility] HAS BEEN ARRANGED FOR [facility] HAND AT [address]. *-* FAMILY AT BEDSIDE NO NEED TO NOTIFY *-*
--- NOTE | 2018-09-04 15:00 | NUR ---
NURSE NOTES: Telephone report given to [facility] ORDER BUILDER LOADER/Mariano.
--- NOTE | 2018-09-04 15:03 | NUR ---
NURSE NOTES: Telephone order received from Dr. Heart, to inform SNF that vancomycin and cefepime are to be continued for 5 more days.
[2018-09-04] MEDS ORDERED: Tubing IV Secondary IV ONE (15:59)
--- NOTE | 2018-09-04 16:00 | NUR ---
INTER-FACILITY TRANSFER: Patient transferred to [facility], per Dr. Mclaughlin. Report given to [facility] staff. Patient transferred with belongings. Belongings verified with patient's daughter upon transfer and given to [facility] staff. Patient remains on nasal cannula at 4LPM, no respiratory distress.
[2018-09-04] MEDS ORDERED: Warfarin Sodium 3mg ORAL SCH (17:00)
[2018-09-04] MEDS ORDERED: Ascorbic Acid 500mg tab ORAL SCH (18:00)
[2018-09-04] MEDS ORDERED: Epoetin Alfa-EPBX (NON ESRD)10,000 unit/ml vial SUBQ SCH (21:00)
[2018-09-04] MEDS ORDERED: Atorvastatin 20mg tab GT SCH (21:00)
[2018-09-05] MEDS ORDERED: Zinc Sulfate 220mg cap ORAL SCH (09:00)
--- NOTE | 2018-09-05 10:34 | Discharge Summary ---
Discharge Summary Discharge Summary _ DATE OF ADMISSION: 09/02/2018 DATE OF DISCHARGE: 09/04/2018 DISCHARGED BY: Dr. Mclaughlin REASON FOR ADMISSION: 88 years old female with past medical history of recurrent respiratory failure, COPD, pneumonia, DVT, UTI, malnutrition, dehydration, dementia, dysphagia, G- tube, resident of [facility], developed respiratory distress and was hypoxic. Patient was placed on BiPAP at the facility. However patient failed BiPAP and became tachypneic. Patient was subsequently sent to emergency room for further evaluation. Upon evaluation sodium 152, potassium 5.2, WBC 14.1, hemoglobin 7.9. Chest x-ray demonstrated increased basilar opacity, likely combination of pleural fluid and atelectasis/consolidation. Urinalysis revealed evidence of possible UTI. patietn was afebrile. Patient was subsequently transferred to direct observational unit for further management. CONSULTANTS: pulmonary Dr. Caraballo ID specialist Dr. Heart psychiatrist Dr. Lott [facility] COURSE: Patient admitted to stepdown unit. Patient initially was hypotensive and received fluid bolus. Patient started on empiric antibiotics. Patient recently had gram-negative bacteremia. Patient continued on the BiPAP. Oxygen titrated to keep pulse oximetry above 92%. Handheld nebulizing treatment with bronchodilator provided. Hypernatremia was likely secondary to intravascular volume depletion. Patient started on gentle hydration with the free water. Hyperkalemia was very mild . Potassium was closely monitored. Prior to discharge both sodium and potassium stable: sodium 143, potassium 4.3. Hemoglobin and hematocrit were closely monitored with goal to keep hemoglobin above 7. Patient was on Epogen. Patient was on Coumadin per pharmacy dosing. Patient was able to be weaned from the BiPAP to Venturi mask and then to nasal cannula. Patient was followed up with serial ABG and chest x-ray. Resin Remover closely followed. BiPAP was on standby as needed and at nighttime. Volumes and renal parameters were closely monitored. Strict aspiration precaution were maintained. G-tube feeding continued. Patient was able to tolerate tube feeding. Nutritional recommendations implemented in plan of care as recommended by registered dietitian. Urine culture revealed Farhana. Blood cultures were negative. Sacral decubitus wound revealed Farhana and diphtheroids. Sputum Gram stain revealed few WBC. Antibiotic regimen provided as per ID specialist recommendation. SNF medications continued. 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 . Respiratory status stabilized. Patient was [facility] transfer to [facility] with close monitoring . FINAL DIAGNOSES: Acute on chronic respiratory failure requiring BiPAP Probably pneumonia Recent sepsis secondary to MRSA pneumonia, Pseudomonas bacteremia , Proteus UTI Anemia Hyperkalemia -resolved Hypernatremia- resolved Sacral decubitus ulcer , present on admission Severe protein calorie malnutrition DISCHARGE MEDICATIONS: See Medication Reconciliation list. DISCHARGE INSTRUCTIONS: Patient was discharged to the [facility] facility. Follow up with medical doctor at the facility. I have been assigned to dictate discharge summary for this account. I was not involved in the patient's management. Majo Padilla NP Sep 05, 2018 10:34
--- NOTE | 2018-09-05 18:05 | Cardiology Report ---
APPROVED REPORT EKG Measurement Heart [id number] Normal sinus rhythm Normal ECG
== END 2018-09-04 16:00 | DRG 177 ==
LOC: EDBD 16:20 → EMR 16:29 → EDBEDREQ 18:03 → 2W 18:08
PROC: 5A09457 Assistance with Respiratory Ventilation, 24-96 Consecutive Hours, Continuous Positive Airway Pressure (ICD-10-PCS; principal; 2018-09-02)
DX: J69.0 Pneumonitis due to inhalation of food and vomit (principal); E43 Unspecified severe protein-calorie malnutrition; J96.21 Acute and chronic respiratory failure with hypoxia; E87.0 Hyperosmolality and hypernatremia; N39.0 Urinary tract infection, site not specified; I50.32 Chronic diastolic (congestive) heart failure; Z43.1 Encounter for attention to gastrostomy; N12 Tubulo-interstitial nephritis, not specified as acute or chronic; Z68.20 Body mass index [BMI] 20.0-20.9, adult; J44.9 Chronic obstructive pulmonary disease, unspecified; Z86.718 Personal history of other venous thrombosis and embolism; Z79.01 Long term (current) use of anticoagulants; D64.9 Anemia, unspecified; E87.5 Hyperkalemia; L89.159 Pressure ulcer of sacral region, unspecified stage; F03.90 Unspecified dementia, unspecified severity, without behavioral disturbance, psychotic disturbance, mood disturbance, and anxiety; R13.10 Dysphagia, unspecified; G47.33 Obstructive sleep apnea (adult) (pediatric); K21.9 Gastro-esophageal reflux disease without esophagitis; G20 Parkinson's disease; Z86.73 Personal history of transient ischemic attack (TIA), and cerebral infarction without residual deficits; F02.80 Dementia in other diseases classified elsewhere, unspecified severity, without behavioral disturbance, psychotic disturbance, mood disturbance, and anxiety; Z88.8 Allergy status to other drugs, medicaments and biological substances; G31.84 Mild cognitive impairment of uncertain or unknown etiology; Z66 Do not resuscitate
CPT/HCPCS: 36415; 36600; 71045; 80048; 80053; 80202; 81003; 82803; 83605; 83880; 84484; 85007; 85025; 85610; 87040; 87070; 87086; 87205; 93005; 94660; 94664; 96365; 99285